=== PATIENT | female | born 1975 | race Caucasian/White ===

== ENCOUNTER → 2017-06-19 | Outpatient (CLI) | payer MEDICAID, SELFPAY | PROVIDERS: Visit Provider Emergency Medicine | DX: Z79.899 Other long term (current) drug therapy (principal) | CPT/HCPCS: 80305 ==

== ENCOUNTER 2017-07-03 08:40 | Emergency (ER) | payer MEDICAID, SELFPAY ==
[2017-07-03 08:44] VITALS: BP 126/80; PULSE 84; RESP 20; TEMP 36.6; O2SAT 97; BMI 23.9
--- NOTE | 2017-07-03 08:55 | XR_ITS ---
XR chest 2V HISTORY: ITS.REASON: SOA, COUGH, LUNG PAIN ORDERING PHYSICIAN: oJcelyn Szymanski MD PATIENT AGE: 42 years COMPARISON: 08/30/2013 FINDINGS: The cardiomediastinal silhouette and pulmonary vascularity are within normal limits. The lungs are clear without infiltrates, suspicious nodules, or pleural effusions. No acute bony abnormalities. There is a bone plate over the lower cervical spine IMPRESSION: No acute finding
--- NOTE | 2017-07-03 09:12 | HMH.EDGENADL ---
ED Disposition Clinical Impression: Bronchitis, Acute bronchitis Disposition: Home, Self-Care Condition on Discharge: Good Instructions: DI for Acute Bronchitis Additional Instructions: Albuterol inhaler as prescribed, Robitussin cough syrup over the counter, Tylenol, Advil for discomfort, push fluids, see Dr. Hess in two to five days for recheck. Prescriptions: Albuterol Sulfate [Proair Hfa 90mcg/puff Inh] 2 puffs IH Q4HP PRN #1 inh PRN Reason: Cough - Critical Care Critical Care Time: No Attestation: On , the high probability of a clinically significant, sudden or life threatening deterioration of the following system(s) required my full and direct attention, intervention and personal management. The time I documented below is in addition to time spent performing reported procedures but includes the following listed in this critical care notation. Medical Decision Making Vital Signs: 07/03/17 08:44 Temperature 97.9 F Temperature Source Oral Pulse Rate [Right Brachial] 84 Respiratory Rate 20 Blood Pressure [Right Arm] 126/80 Blood Pressure Mean [Right Arm] 95 Blood Pressure Source [Right Arm] Automatic Cuff Blood Pressure Position [Right Arm] Sitting 02 Sat by Pulse Oximetry 97 Oxygen Delivery Method Room Air - Lab Data Lab Results 07/03/17 08:48: Influenza Type A Ag Negative, Influenza Type B Ag Negative, Group A Strep Rapid Negative Orders (Tests/Meds): ORDERS Category Date Time Status Chest XR 2 view (NOT portable) [XR chest 2V] Stat Exams 07/03/17 08:55 Taken Strep Screen Confirmation Stat Micro 07/03/17 08:48 Received - Radiology Data #1 Image(s): Chest Image Reviewed: Yes I reviewed the patient's radiology results, Yes I have reviewed radiologist's interpretation Preliminary Findings: Normal/NAD, No Infiltrates Seen - Darrius Inquiry Pt receiving controlled substance: No General Adult HPI - General Chief complaint: Shortness of Breath/Dyspnea Stated complaint: SOA Check for Pheumonia Mode of Arrival: Ambulatory Limitations: No Limitations Description of Symptoms (Recalled from ER Triage Doc. by RN): PT C/O COUGH, LUNG PAIN, AND HEAD CONGESTION SINCE 06/30/17 - History of Present Illness HPI narrative: Flu symptoms ?4 days. Tight, bronchitic cough, myalgias and congestion. Taking p.o. well. She reports a history of asthma, and has used inhalers in the past. Onset (ago): day(s) (four) Location: chest Radiation: back Severity: mild Quality: aching Consistency: intermittent Relieving factors: rest Exacerbating factors: movement Associated symptoms: cough, fever/chills. negative: rash Treatments prior to arrival: none - Related Data Previous Rx's Medication Instructions Recorded Albuterol Sulfate [Proair Hfa 2 puffs IH Q4HP PRN #1 inh 07/03/17 90mcg/puff Inh] Allergies Allergy/AdvReac Type Severity Reaction Status Date / Time codeine [CODEINE] Allergy Unknown Unverified 06/17/17 14:26 fluoxetine [From PROZAC] Allergy Unknown Unverified 06/17/17 14:26 ibuprofen [IBUPROFEN] Allergy Unknown Unverified 06/17/17 14:26 latex [LATEX] Allergy Unknown Unverified 06/17/17 14:26 loratadine [From CLARITIN] Allergy Unknown Unverified 06/17/17 14:26 magnesium [MAGNESIUM] Allergy Unknown Unverified 06/17/17 14:26 nitrofurantoin Allergy Unknown Unverified 06/17/17 14:26 [NITROFURANTOIN] oxycodone [OXYCODONE] Allergy Unknown Unverified 06/17/17 14:26 sumatriptan [SUMATRIPTAN] Allergy Unknown Unverified 06/17/17 14:26 tramadol [TRAMADOL] Allergy Unknown Unverified 06/17/17 14:26 trazodone [TRAZODONE] Allergy Unknown Unverified 06/17/17 14:26 ANESTHESIA GASES FROM DENTAL Allergy Unknown STOPPED Uncoded 06/17/17 14:26 WORK BREATHING [facility] History - *Social History Smoking Status: Former smoker Tobacco Type: cigarettes Alcohol Intake: never - Psychiatric History Expresses thoughts of harming self/others: None Suicide Plan Descriptio
[2017-07-03 09:14] LABS: Strep Scrn Group A (Rapid) Negative (Negative)
--- NOTE | 2017-07-03 09:17 | ED_ITS ---
ED Disposition Clinical Impression: Bronchitis, Acute bronchitis Disposition: Home, Self-Care Condition on Discharge: Good Instructions: DI for Acute Bronchitis Additional Instructions: Albuterol inhaler as prescribed, Robitussin cough syrup over the counter, Tylenol, Advil for discomfort, push fluids, see Dr. Hess in two to five days for recheck. Prescriptions: Albuterol Sulfate [Proair Hfa 90mcg/puff Inh] 2 puffs IH Q4HP PRN #1 inh PRN Reason: Cough - Critical Care Critical Care Time: No Attestation: On , the high probability of a clinically significant, sudden or life threatening deterioration of the following system(s) required my full and direct attention, intervention and personal management. The time I documented below is in addition to time spent performing reported procedures but includes the following listed in this critical care notation. Medical Decision Making Vital Signs: 07/03/17 08:44 Temperature 97.9 F Temperature Source Oral Pulse Rate [Right Brachial] 84 Respiratory Rate 20 Blood Pressure [Right Arm] 126/80 Blood Pressure Mean [Right Arm] 95 Blood Pressure Source [Right Arm] Automatic Cuff Blood Pressure Position [Right Arm] Sitting 02 Sat by Pulse Oximetry 97 Oxygen Delivery Method Room Air - Lab Data Lab Results 07/03/17 08:48: Influenza Type A Ag Negative, Influenza Type B Ag Negative, Group A Strep Rapid Negative Orders (Tests/Meds): ORDERS Category Date Time Status Chest XR 2 view (NOT portable) [XR chest 2V] Stat Exams 07/03/17 08:55 Taken Strep Screen Confirmation Stat Micro 07/03/17 08:48 Received - Radiology Data #1 Image(s): Chest Image Reviewed: Yes I reviewed the patient's radiology results, Yes I have reviewed radiologist's interpretation Preliminary Findings: Normal/NAD, No Infiltrates Seen - Darrius Inquiry Pt receiving controlled substance: No General Adult HPI - General Chief complaint: Shortness of Breath/Dyspnea Stated complaint: SOA Check for Pheumonia Mode of Arrival: Ambulatory Limitations: No Limitations Description of Symptoms (Recalled from ER Triage Doc. by RN): PT C/O COUGH, LUNG PAIN, AND HEAD CONGESTION SINCE 06/30/17 - History of Present Illness HPI narrative: Flu symptoms ?4 days. Tight, bronchitic cough, myalgias and congestion. Taking p.o. well. She reports a history of asthma, and has used inhalers in the past. Onset (ago): day(s) (four) Location: chest Radiation: back Severity: mild Quality: aching Consistency: intermittent Relieving factors: rest Exacerbating factors: movement Associated symptoms: cough, fever/chills. negative: rash Treatments prior to arrival: none - Related Data Previous Rx's Medication Instructions Recorded Albuterol Sulfate [Proair Hfa 2 puffs IH Q4HP PRN #1 inh 07/03/17 90mcg/puff Inh] Allergies Allergy/AdvReac Type Severity Reaction Status Date / Time codeine [CODEINE] Allergy Unknown Unverified 06/17/17 14:26 fluoxetine [From PROZAC] Allergy Unknown Unverified 06/17/17 14:26 ibuprofen [IBUPROFEN] Allergy Unknown Unverified 06/17/17 14:26 latex [LATEX] Allergy Unknown Unverified 06/17/17 14:26 loratadine [From CLARITIN] Allergy Unknown Unverified 06/17/17 14:26 magnesium [MAGNESIUM] Allergy Unknown Unverified 06/17/17 14
[2017-07-03 09:36] VITALS: BP 138/75; PULSE 102; RESP 20
== END 2017-07-03 09:36 | disposition home or self-care (01) ==
LOC: ER 10:07
PROVIDERS: Emergency Provider Emergency Medicine; Family Provider Emergency Medicine; PCP Emergency Medicine
DX: J20.9 Acute bronchitis, unspecified (principal); J45.909 Unspecified asthma, uncomplicated; Z88.6 Allergy status to analgesic agent; Z88.8 Allergy status to other drugs, medicaments and biological substances; Z91.040 Latex allergy status; Z87.891 Personal history of nicotine dependence
CPT/HCPCS: 71046; 87275; 87276; 87430; 99282; 99284

== ENCOUNTER 2017-07-11 13:07 | Emergency (ER) | payer MEDICAID, SELFPAY ==
[2017-07-11 13:27] VITALS: BP 149/92; PULSE 98; RESP 18; TEMP 36.6; O2SAT 98; BMI 23.0
--- NOTE | 2017-07-11 13:32 | PC.NURSE ---
Pt reports seizing in her sleep last night. Woke up with bite to inside of right cheek and stiff neck. Stiff neck is reported as unbearable. Called PCP, Dr. Hess. Office staff couldn't get her in and told her to come to the hospital if she thought she had a seizure. Hx of seizures but not typically while on medication. Unknown medications. [facility], on trileptal 300mg BIC, norco, valium and clomipramine. Discussed atypical seizures, [facility] guidelines and transfer to ER. Pt agreeable. Report called to SOLITARIO Silva RN. PAC RN finishing triage prior to transferring patient.
[2017-07-11 13:46] VITALS: BP 138/87; PULSE 91; RESP 16; TEMP 36.7; O2SAT 98; BMI 23.0
[2017-07-11 13:52] VITALS: BP 138/87; PULSE 91; RESP 16; O2SAT 98
--- NOTE | 2017-07-11 13:56 | HMH.EDGENADL ---
ED Disposition Clinical Impression: Cervical strain Disposition: Home, Self-Care Condition on Discharge: Good Instructions: DI for Cervical Radiculopathy, DI for Neck Sprain, DI for Seizure Disorder -- Adult Additional Instructions: Take Trileptal 300 mg once a day. See Dr. Hess in the office on Friday next week. Continue current pain medication. Additional instructions for SEIZURE OR LOSS OF CONSCIOUSNESS/POSSIBLE SEIZURE: NO DRIVING, BIKE RIDING, SWIMMING, TUB BATHING, LADDERS UNTIL CLEARED BY DOCTOR. RETURN IF SEIZURE RECURS. NO ALCOHOL OR STREET DRUGS. See your physician as soon as possible for follow-up. Return to the emergency department if seizure recurs. Additional instructions for NECK PAIN: See your physician as soon as possible for further evaluation. Return immediately if neck pain becomes intolerable, or if fever, numbness or weakness of your arms or legs, loss of control of your bowels or bladder. Referrals: Omar Hess MD [Primary Care Provider] - - Critical Care Critical Care Time: No Attestation: On 07/11/17, the high probability of a clinically significant, sudden or life threatening deterioration of the following system(s) required my full and direct attention, intervention and personal management. The time I documented below is in addition to time spent performing reported procedures but includes the following listed in this critical care notation. Medical Decision Making Vital Signs: 07/11/17 13:27 07/11/17 13:46 07/11/17 13:52 Temperature 98 F 98.0 F Temperature Source Temporal Artery Scan Oral Pulse Rate [Right] 98 H 91 H 91 H Respiratory Rate 18 16 16 Blood Pressure [Right Arm] 149/92 138/87 138/87 Blood Pressure Mean [Right Arm] 111 104 104 Blood Pressure Source [Right Arm] Automatic Cuff Automatic Cuff Automatic Cuff Blood Pressure Position [Right Arm] Sitting Sitting Sitting 02 Sat by Pulse Oximetry 98 98 98 Oxygen Delivery Method Room Air Room Air Room Air - CT Data CT Scan: C-Spine Time Received: 15:[address] Reviewed: Yes: I have viewed the radiologist's interpretation Findings Narrative: CT scan interpreted by radiologist: No acute process. Previous fusion. - Darrius Inquiry Pt receiving controlled substance: No Medical Decision Making Narrative: 2:00 PM: Dr. Hess's office was called and they advised to change the patient's Trileptal dose to 300 mg per day and she can be seen in the office on Friday. 3:12 PM: The patient declines a dose of Trileptal, wants to take it tonight because it helps her sleep. Also states cannot take steroids for possible cervical radiculopathy, does not tolerate them. General Adult HPI - General Chief complaint: PAIN Stated complaint: neck pain and left side had seizure Mode of Arrival: Wheelchair Limitations: No Limitations Description of Symptoms (Recalled from ER Triage Doc. by RN): pt reports seizure lastnight, reports bit the inside of her cheek. Reports neck soreness x2 days. Pt reports hasn't taken trileptal in approx 1 week r/t it's makes me sleepy . Pt reports was told by personnel arbitrator MD lastnight to follow up with her pcp, states pcp office did not have appointments available today to be seen in ER. - History of Present Illness HPI narrative: The patient complains of neck pain, acute on chronic, and a possible seizure with a history of a seizure disorder. She says that she awoke this morning more sore than usual. She has chronic neck pain but it is more severe. It radiates into her left shoulder blade area and her left arm feels tingly. She says she has had problems with her arm before, but not recently. She has a prior history of surgery on her neck a couple of years ago. She is on chronic pain medication for her neck, 2 tablets a day, she took 1-1/2 tablets this morning. Because of her increased neck pain and also a bite lashawn on the inside of her cheek, she thinks that she might of had a seizure
--- NOTE | 2017-07-11 14:04 | CT_ITS ---
CT cervical spine wo con INDICATION: Severe neck pain. History of C-spine surgery ITS.REASON: neck pain COMPARISON: None TECHNIQUE: Axial images are obtained without contrast. Sagittal and coronal reformatted images are reviewed as well. FINDINGS: There is straightening of the cervical lordosis which could be due to patient positioning or muscle spasm. There is been prior anterior cervical disc fusion at C5-C6. Normal alignment. No fracture or dislocation. No bony canal stenosis. No prevertebral soft tissue swelling. No lytic or blastic change. There are scattered small lymph nodes in the neck. Chronic changes are present in the lung apices IMPRESSION: 1. No acute finding. 2. Prior anterior cervical disc fusion at C5-C6 3. Straightening of cervical lordosis which could be due to patient positioning or muscle spasm.
[2017-07-11 15:18] VITALS: BP 120/68; PULSE 83; RESP 16; TEMP 36.9; O2SAT 99
== END 2017-07-11 15:18 | disposition home or self-care (01) ==
LOC: UTC 13:09 → ER 13:45
PROVIDERS: Emergency Provider Emergency Medicine; Family Provider Emergency Medicine; PCP Emergency Medicine
DX: S16.1XXA Strain of muscle, fascia and tendon at neck level, initial encounter (principal); R56.9 Unspecified convulsions; Z79.899 Other long term (current) drug therapy; Z87.891 Personal history of nicotine dependence
CPT/HCPCS: 72125; 96372; 99282

== ENCOUNTER → 2017-08-15 14:51 | Outpatient (CLI) | payer MEDICAID, SELFPAY ==
--- NOTE | 2017-08-15 14:51 | MR_ITS ---
MR cervical spine wo con, MR 3-d myelogram/MRCP HISTORY: New onset neck pain ORDERING PHYSICIAN: Omar Hess MD PATIENT AGE: 42 years COMPARISON: MRI of 11-29-[address] scan of 07/11/2017 TECHNIQUE: Standard multiplanar multiecho sequences are performed without contrast. 3-D MIP and myelographic images are also rendered and reviewed FINDINGS: The craniocervical junction has an unremarkable appearance. C2-C3 and C3-C4 are unremarkable. C4-C5: Mild concentric bulging disc. C5-C6: Artifact is present from anterior bone plate with screws at C5 and C6. There is been prior fusion of C5-C6. C6-C7: Broad-based central disc protrusion once again noted. This is slightly larger on today's study when compared to the previous exam causing mild impingement and flattening upon the anterior aspect of the cord slightly eccentric toward the left. There is some prominence of the posterior longitudinal ligament at this region as well. There is canal stenosis at this level with canal measuring 7 mm previously measuring 8 mm. C7-T1: Unremarkable. IMPRESSION: 1. Postsurgical changes at C5-C6 from prior anterior cervical disc fusion. 2. Broad-based central disc protrusion at C6-C7 slightly larger on today's study when compared to the previous exam causing mild impingement and flattening upon the anterior aspect of the cord slightly eccentric toward the left. There is some prominence of the posterior longitudinal ligament at this region as well. There is canal stenosis at this level with canal measuring 7 mm previously measuring 8 mm.
== END ==
PROVIDERS: Family Provider Emergency Medicine; PCP Emergency Medicine; Visit Provider Emergency Medicine
DX: M54.2 Cervicalgia (principal)
CPT/HCPCS: 72141; 76376

== ENCOUNTER → 2017-08-20 13:52 | Outpatient (REF) | payer MEDICAID, SELFPAY ==
[2017-08-21 15:33] LABS: Basophils # 0.1 K/mm3 (0-0.2); Basophils % 0.9 % (0.1-2.0); Eosinophils # 0.2 K/mm3 (0.0-0.4); Hematocrit 42.8 % (37.0-47.0); Hemoglobin 14.1 g/dL (12.2-16.2); Lymphocytes % 31.2 K/mm3 (10-50); Mean Corpuscular Hemoglobin 31.2 pg (27.0-31.2); Mean Corpuscular Volume 94.6 fl (81-99); Mean Platelet Volume 9.9 fl (7.4-10.4); Monocytes # 0.3 K/mm3 (0.1-1.0); Monocytes % 4.9 % (1.7-9.3); Neutrophils # 3.8 K/mm3 (1.8-7.8); Neutrophils % 59.9 % (37.0-80.0); Platelet Count 284 K/mm3 (142-424); Red Blood Count 4.52 M/mm3 (4.20-5.40); Red Cell Distribution Width 12.4 % (11.5-17.5); White Blood Count 6.4 K/mm3 (4.8-10.8)
[2017-08-21 15:39] LABS: Alanine Aminotransferase 35 U/L (12-78); Albumin Level 3.9 gm/dL (3.4-5.0); Albumin/Globulin Ratio 1.2 (1.1-1.8); Alkaline Phosphatase 71 U/L (46-116); Anion Gap 9.3 mEq/L (5-15); Aspartate Amino Transferase 16 U/L (15-37); Bilirubin,Total 0.3 mg/dL (0.2-1.0); Blood Urea Nitrogen 11 mg/dL (7-18); Calcium 9.1 mg/dL (8.5-10.1); Carbon Dioxide 29 mmol/L (21.0-32.0); Chloride 104 mmol/L (98-107); Creatinine,Serum 0.87 mg/dL (0.55-1.02); Estimated Glomerular Filt Rate 71 ml/min (>60); GFR (African American) 86 ML/MIN (>60); Globulin 3.3 gm/dl (1.3-3.2); Glucose 123 mg/dL (74-106); Potassium 4.3 mmoL/L (3.5-5.1); Sodium 138 mmol/L (136-145); Total Protein,Serum 7.2 gm/dL (6.4-8.2)
[2017-08-21 15:40] LABS: Amphetamine/Metha Screen,Urine Negative ng/mL (<1000); Barbiturates Screen,Urine Negative ng/mL (<200); Benzodiazepines Screen,Urine Positive ng/mL (200); Cannabinoid Screen,Urine Negative ng/mL (<50); Cocaine Screen,Urine Negative ng/g (<300); Methadone Screen,Urine Negative ng/mL (<300); Opiate Screen,Urine Positive ng/mL (<300); Phencyclidine Screen,Urine Negative ng/mL (<25)
[2017-08-21 16:04] LABS: Hemoglobin A1C 5.4 % (0.0-7.0)
== END ==
LOC: LAB 13:52
PROVIDERS: Visit Provider Emergency Medicine
DX: R23.2 Flushing (principal); Z79.899 Other long term (current) drug therapy
CPT/HCPCS: 80053; 80305; 83036; 85025

== ENCOUNTER → 2017-08-21 13:52 | Outpatient (CLI) | payer MEDICAID, SELFPAY | PROVIDERS: Visit Provider Emergency Medicine | DX: R23.2 Flushing (principal); Z79.899 Other long term (current) drug therapy ==

== ENCOUNTER → 2017-09-03 16:10 | Outpatient (CLI) | payer MEDICAID, SELFPAY ==
--- NOTE | 2017-09-03 16:14 | MM_ITS ---
MM Dig screening mamm BI w/CAD CAD Screening COMPARISON: Digital baseline mammogram 11/07/2015 INDICATION: There is no personal or family history of breast cancer TECHNIQUE: Standard CC and MLO images were obtained. R2 CAD reviewed. FINDINGS: Moderate diffuse fibroglandular densities are seen in the central portions of both breasts. There are 2 small nodular densities upper central portion of the left breast which are not deftly seen on the previous mammogram. These have well-defined borders and and are likely cysts or possibly fibroadenomas. Recommend ultrasound evaluation of left breast . Again noted are couple mole markers on each breast. There are no suspicious microcalcifications. IMPRESSION: Fibrofatty parenchyma with new benign-appearing densities left breast BI-RADS Category: 0 Need Additional Imaging Evaluation RECOMMENDED FOLLOW-UP: IMM - IMMEDIATE FOLLOW-UP RECOMMENDED (A letter has been sent to the patient regarding results of the study.)
== END ==
PROVIDERS: Family Provider Emergency Medicine; PCP Emergency Medicine; Visit Provider Emergency Medicine
DX: Z12.31 Encounter for screening mammogram for malignant neoplasm of breast (principal)
CPT/HCPCS: 77067

== ENCOUNTER → 2017-09-17 13:02 | Outpatient (REF) | payer MEDICAID, SELFPAY ==
[2017-09-17 20:19] LABS: Amphetamine/Metha Screen,Urine Negative ng/mL (<1000); Barbiturates Screen,Urine Negative ng/mL (<200); Benzodiazepines Screen,Urine Positive ng/mL (200); Cannabinoid Screen,Urine Negative ng/mL (<50); Cocaine Screen,Urine Negative ng/g (<300); Methadone Screen,Urine Negative ng/mL (<300); Opiate Screen,Urine Positive ng/mL (<300); Phencyclidine Screen,Urine Negative ng/mL (<25)
== END ==
LOC: LAB 13:02
PROVIDERS: Visit Provider Emergency Medicine
DX: Z79.899 Other long term (current) drug therapy (principal)
CPT/HCPCS: 80305

== ENCOUNTER → 2017-10-10 11:11 | Outpatient (CLI) | payer MEDICAID, SELFPAY ==
--- NOTE | 2017-10-10 11:13 | US_ITS ---
US breast LT complete COMPARISON: Annual screening mammogram 09/03/2017 HISTORY: Evaluation of asymmetric nodular densities left breast TECHNIQUE: Targeted ultrasound left breast FINDINGS: There are 2 well-defined hypoechoic cystic-appearing lesions at the 11:00 position outer breast. The largest has a somewhat bilobed appearance measuring 1.6 x 0.8 x 0.9 cm. This shows good acoustic enhancement. The other cystic lesion measures 1.2 x 1.3 x 0.7 cm and shows acoustic enhancement well. There is a third tiny hypoechoic lesion to small to characterize but probably a small cyst left o'clock position near the nipple measuring 0.5 x 0.3 x 0.4 cm. There are couple tiny cystic-appearing lesions at the 2:00 position in the nipple. Is no suspicious solid lesions identified. There is a normal-appearing node in the axilla. IMPRESSION: Benign-appearing cystic lesions in the left breast as described and recommend patient kidney with yearly screening mammography
== END ==
PROVIDERS: Family Provider Emergency Medicine; PCP Emergency Medicine; Visit Provider Emergency Medicine
DX: R92.8 Other abnormal and inconclusive findings on diagnostic imaging of breast (principal)
CPT/HCPCS: 76641

== ENCOUNTER → 2017-10-17 13:55 | Outpatient (REF) | payer MEDICAID, SELFPAY ==
[2017-10-17 19:41] LABS: Amphetamine/Metha Screen,Urine Negative ng/mL (<1000); Barbiturates Screen,Urine Negative ng/mL (<200); Benzodiazepines Screen,Urine Positive ng/mL (200); Cannabinoid Screen,Urine Negative ng/mL (<50); Cocaine Screen,Urine Negative ng/g (<300); Methadone Screen,Urine Negative ng/mL (<300); Opiate Screen,Urine Positive ng/mL (<300); Phencyclidine Screen,Urine Negative ng/mL (<25)
== END ==
LOC: LAB 13:55
PROVIDERS: Visit Provider Emergency Medicine
DX: Z79.899 Other long term (current) drug therapy (principal)
CPT/HCPCS: 80305

== ENCOUNTER → 2017-11-05 08:56 | Outpatient (CLI) | payer MEDICAID, SELFPAY ==
--- NOTE | 2017-11-05 09:00 | XR_ITS ---
XR elbow LT 2V HISTORY: ITS.REASON: left elbow pain ORDERING PHYSICIAN: Jamar Rodriguez MD PATIENT AGE: 42 years COMPARISON: FINDINGS: BONY STRUCTURES: No fracture or dislocation. No lytic or blastic change. Normal mineralization. SOFT TISSUES: Unremarkable. No radio opaque foreign bodies. No displaced fat pad. JOINT SPACE: Well-preserved. No significant arthritic changes evident. IMPRESSION: Negative left elbow.
== END ==
PROVIDERS: PCP Emergency Medicine; Visit Provider Orthopaedic Surgery
DX: M25.522 Pain in left elbow (principal)
CPT/HCPCS: 73070

== ENCOUNTER → 2017-11-14 08:42 | Outpatient (REF) | payer MEDICAID, SELFPAY ==
[2017-11-14 14:32] LABS: Amphetamine/Metha Screen,Urine Negative ng/mL (<1000); Barbiturates Screen,Urine Negative ng/mL (<200); Benzodiazepines Screen,Urine Positive ng/mL (200); Cannabinoid Screen,Urine Negative ng/mL (<50); Cocaine Screen,Urine Negative ng/g (<300); Methadone Screen,Urine Negative ng/mL (<300); Opiate Screen,Urine Positive ng/mL (<300); Phencyclidine Screen,Urine Negative ng/mL (<25)
== END ==
LOC: LAB 08:42
PROVIDERS: Visit Provider Emergency Medicine
DX: Z79.891 Long term (current) use of opiate analgesic (principal)
CPT/HCPCS: 80305

== ENCOUNTER → 2017-12-01 09:16 | Outpatient (POV) | payer MEDICAID, SELFPAY | PROVIDERS: Family Provider Emergency Medicine; PCP Emergency Medicine; Visit Provider Specialist | DX: R20.0 Anesthesia of skin (principal); R20.2 Paresthesia of skin | CPT/HCPCS: 95886; 95910 ==

== ENCOUNTER → 2017-12-03 13:43 | Outpatient (REF) | payer MEDICAID, SELFPAY ==
[2017-12-03 19:28] LABS: Amphetamine/Metha Screen,Urine Negative ng/mL (<1000); Barbiturates Screen,Urine Negative ng/mL (<200); Benzodiazepines Screen,Urine Positive ng/mL (200); Cannabinoid Screen,Urine Negative ng/mL (<50); Cocaine Screen,Urine Negative ng/g (<300); Methadone Screen,Urine Negative ng/mL (<300); Opiate Screen,Urine Positive ng/mL (<300); Phencyclidine Screen,Urine Negative ng/mL (<25)
== END ==
LOC: LAB 13:43
PROVIDERS: Visit Provider Emergency Medicine
DX: Z79.899 Other long term (current) drug therapy (principal)
CPT/HCPCS: 80305

== ENCOUNTER → 2018-01-05 15:27 | Outpatient (CLI) | payer MEDICAID, SELFPAY ==
--- NOTE | 2018-01-05 15:30 | MR_ITS ---
MR cervical spine wo con, MR 3-d myelogram/MRCP HISTORY: PT states neck pain, burning/stinging sensations at times. Also will have bilateral arm pain. Symptoms X6 Months. PT also states she had a fusion 2-3 years ago. ITS.REASON: NECK PAIN, DDD CERVICAL, HX OF FUSION OF CERVICAL SPINE ORDERING PHYSICIAN: Criss Bolaños PATIENT AGE: 42 years Comparison: MRI 11/29/16 TECHNIQUE: Standard multiplanar multiecho sequences are performed without contrast. 3-D MIP and myelographic images are also rendered and reviewed FINDINGS: There is straightening of the cervical lordosis. The craniocervical junction has an unremarkable appearance. C2-C3 and C3-C4 are unremarkable. C4-C5: Minimal bulging disc. C5-C6: Status post anterior cervical disc fusion with moderate degree of metallic artifact. C6-C7: Small broad-based right paracentral disc protrusion. Previously this was central and very slightly eccentric toward the left but now appears slightly eccentric toward the right. There is resultant canal stenosis of 7 8-mm with minimal impingement upon the anterior aspect of the cord. C7-T1: Unremarkable. IMPRESSION: 1. Postsurgical changes from prior anterior cervical disc fusion at C5-C6. 2 .Small broad-based right paracentral disc protrusion at C6-C7. Previously this was central and very slightly eccentric toward the left but now appears slightly eccentric toward the right. There is resultant canal stenosis of 7- 8-mm with minimal impingement upon the anterior and right aspect of the cord
== END ==
PROVIDERS: Family Provider Emergency Medicine; PCP Emergency Medicine; Visit Provider Physician Assistant Medical
DX: M54.2 Cervicalgia (principal); M50.30 Other cervical disc degeneration, unspecified cervical region; R29.2 Abnormal reflex; Z98.1 Arthrodesis status
CPT/HCPCS: 72141; 76376

== ENCOUNTER → 2018-04-15 14:13 | Outpatient (REF) | payer MEDICAID, SELFPAY ==
[2018-04-15 20:10] LABS: Amphetamine/Metha Screen,Urine Negative ng/mL (<1000); Barbiturates Screen,Urine Negative ng/mL (<200); Benzodiazepines Screen,Urine Positive ng/mL (<200); Cannabinoid Screen,Urine Negative ng/mL (<50); Cocaine Screen,Urine Negative ng/mL (<300); Methadone Screen,Urine Negative ng/mL (<300); Opiate Screen,Urine Positive ng/mL (<300); Phencyclidine Screen,Urine Negative ng/mL (<25)
== END ==
LOC: LAB 14:13
PROVIDERS: PCP Emergency Medicine; Visit Provider Emergency Medicine
DX: Z79.899 Other long term (current) drug therapy (principal)
CPT/HCPCS: 80305

== ENCOUNTER → 2018-05-15 08:25 | Outpatient (CLI) | payer MEDICAID, SELFPAY ==
[2018-05-18 14:56] LABS: Amphetamine/Metha Screen,Urine Negative ng/mL (<1000); Barbiturates Screen,Urine Negative ng/mL (<200); Benzodiazepines Screen,Urine Positive ng/mL (<200); Cannabinoid Screen,Urine Negative ng/mL (<50); Cocaine Screen,Urine Negative ng/mL (<300); Methadone Screen,Urine Negative ng/mL (<300); Opiate Screen,Urine Positive ng/mL (<300); Phencyclidine Screen,Urine Negative ng/mL (<25)
== END ==
PROVIDERS: Visit Provider Emergency Medicine
DX: Z79.899 Other long term (current) drug therapy (principal)
CPT/HCPCS: 80305

== ENCOUNTER → 2018-06-15 18:43 | Outpatient (CLI) | payer MEDICAID, SELFPAY ==
[2018-06-15 19:24] LABS: Amphetamine/Metha Screen,Urine Negative ng/mL (<1000); Barbiturates Screen,Urine Negative ng/mL (<200); Benzodiazepines Screen,Urine Positive ng/mL (<200); Cannabinoid Screen,Urine Negative ng/mL (<50); Cocaine Screen,Urine Negative ng/mL (<300); Methadone Screen,Urine Negative ng/mL (<300); Opiate Screen,Urine Positive ng/mL (<300); Phencyclidine Screen,Urine Negative ng/mL (<25)
== END ==
PROVIDERS: Visit Provider Emergency Medicine
DX: Z79.899 Other long term (current) drug therapy (principal)
CPT/HCPCS: 80305

== ENCOUNTER → 2018-07-02 12:51 | Outpatient (CLI) | payer MEDICAID, SELFPAY ==
--- NOTE | 2018-07-02 12:53 | MR_ITS ---
MR cervical spine wo con, MR 3-d myelogram/MRCP HISTORY: LT arm pain, Numbness, and tingling. Headache. HX 2 neck surgeries last one 4-5months ago. ITS.REASON: neck pain ORDERING PHYSICIAN: Omar Hess MD PATIENT AGE: 43 years Comparison: MR 01-05-18 TECHNIQUE: Standard multiplanar multiecho sequences are performed without contrast. 3-D MIP and myelographic images are also rendered and reviewed FINDINGS: The craniocervical junction has an unremarkable appearance. C2-C3: Unremarkable. C3-C4: Unremarkable. C4-C5: Minimal bulging disc slightly eccentric toward the left without flattening or impingement. There is congenital narrowing of the canal is 10 mm C5-C6: There appears that the previously noted anterior screws at C5 have been removed. There is degenerative disc disease at C5-C6. There is narrowing of the canal at 10 mm but no evidence of cord impingement C6-C7: Artifact is present from anterior disc fusion.. Bone plate is present at C6-C7 anteriorly. No disc herniation or significant foraminal narrowing apparent. Previously noted disc herniation at C6-C7 is no longer apparent. IMPRESSION: 1. Postsurgical changes at C5-C6 and C6-C7 as described above. Previously noted right paracentral disc protrusion no longer apparent at C6-C7. 2. 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 There is minimal bulging disc eccentric to the left at C4-C5 3. No extruded herniated disc evident.
== END ==
PROVIDERS: PCP Emergency Medicine; Visit Provider Emergency Medicine
DX: M54.2 Cervicalgia (principal)
CPT/HCPCS: 72141; 76376

== ENCOUNTER → 2018-08-14 17:46 | Outpatient (CLI) | payer MEDICAID, SELFPAY ==
[2018-08-14 19:27] LABS: Amphetamine/Metha Screen,Urine Negative ng/mL (<1000); Barbiturates Screen,Urine Negative ng/mL (<200); Benzodiazepines Screen,Urine Positive ng/mL (<200); Cannabinoid Screen,Urine Negative ng/mL (<50); Cocaine Screen,Urine Negative ng/mL (<300); Methadone Screen,Urine Negative ng/mL (<300); Opiate Screen,Urine Positive ng/mL (<300); Phencyclidine Screen,Urine Negative ng/mL (<25)
== END ==
LOC: LAB 17:46 → LAB.DROPOF 17:49
PROVIDERS: Visit Provider Emergency Medicine
DX: Z79.899 Other long term (current) drug therapy (principal)
CPT/HCPCS: 80305

== ENCOUNTER → 2018-09-09 17:00 | Outpatient (CLI) | payer MEDICAID, SELFPAY ==
[2018-09-09 19:29] LABS: Amphetamine/Metha Screen,Urine Negative ng/mL (<1000); Barbiturates Screen,Urine Negative ng/mL (<200); Benzodiazepines Screen,Urine Positive ng/mL (<200); Cannabinoid Screen,Urine Negative ng/mL (<50); Cocaine Screen,Urine Negative ng/mL (<300); Methadone Screen,Urine Negative ng/mL (<300); Opiate Screen,Urine Positive ng/mL (<300); Phencyclidine Screen,Urine Negative ng/mL (<25)
== END ==
PROVIDERS: Visit Provider Emergency Medicine
DX: M54.2 Cervicalgia (principal)
CPT/HCPCS: 80305

== ENCOUNTER → 2018-10-09 16:47 | Outpatient (CLI) | payer MEDICAID, SELFPAY ==
[2018-10-09 18:30] LABS: Amphetamine/Metha Screen,Urine Negative ng/mL (<1000); Barbiturates Screen,Urine Negative ng/mL (<200); Benzodiazepines Screen,Urine Positive ng/mL (<200); Cannabinoid Screen,Urine Negative ng/mL (<50); Cocaine Screen,Urine Negative ng/mL (<300); Methadone Screen,Urine Negative ng/mL (<300); Opiate Screen,Urine Positive ng/mL (<300); Phencyclidine Screen,Urine Negative ng/mL (<25)
== END ==
PROVIDERS: Visit Provider Emergency Medicine
DX: M54.2 Cervicalgia (principal)
CPT/HCPCS: 80305

== ENCOUNTER → 2018-12-08 18:04 | Outpatient (CLI) | payer MEDICAID, SELFPAY ==
[2018-12-08 19:23] LABS: Amphetamine/Metha Screen,Urine Negative ng/mL (<1000); Barbiturates Screen,Urine Negative ng/mL (<200); Benzodiazepines Screen,Urine Positive ng/mL (<200); Cannabinoid Screen,Urine Negative ng/mL (<50); Cocaine Screen,Urine Negative ng/mL (<300); Methadone Screen,Urine Negative ng/mL (<300); Opiate Screen,Urine Positive ng/mL (<300); Phencyclidine Screen,Urine Negative ng/mL (<25)
== END ==
PROVIDERS: Visit Provider Emergency Medicine
DX: M54.2 Cervicalgia (principal)
CPT/HCPCS: 80305

== ENCOUNTER → 2019-01-26 15:59 | Outpatient (CLI) | payer MEDICAID, SELFPAY ==
--- NOTE | 2019-01-26 16:01 | MM_ITS ---
MM Dig screening mamm BI w/CAD CAD Screening COMPARISON: Digital mammograms with CAD 09/03/2017 and 11/07/2015 INDICATION: There is no personal or family history of breast cancer TECHNIQUE: Standard CC and MLO images were obtained. R2 CAD reviewed. FINDINGS: Moderate fibroglandular densities are seen in the central portions and upper outer quadrants of each breast. There is a dominant spherical density central portion of left breast similar in size and appearance to one of the 2 densities seen on last year's mammogram. These were shown to be cystic lesions one of which apparently has almost completely spontaneously decompressed or was drained. A small satellite cystic-appearing lesion is seen adjacent to the larger one best appreciated on the CC projection. There is a mole marker right breast. There are no suspicious microcalcifications. IMPRESSION: Fibrofatty parenchyma with 2 small benign-appearing lesions left breast likely cyst as noted on previous ultrasound exam one of which has markedly decreased in size from the previous exam the other one is stable and unchanged BI-RADS Category: 2 Benign Finding(s) RECOMMENDED FOLLOW-UP: 1YR - 1 YEAR FOLLOW-UP (A letter has been sent to the patient regarding results of the study.)
== END ==
PROVIDERS: PCP Emergency Medicine; Visit Provider Emergency Medicine
DX: Z12.31 Encounter for screening mammogram for malignant neoplasm of breast (principal)
CPT/HCPCS: 77067

== ENCOUNTER → 2019-01-28 17:42 | Outpatient (CLI) | payer MEDICAID, SELFPAY | PROVIDERS: Visit Provider Nurse Practitioner Family | DX: N39.0 Urinary tract infection, site not specified (principal) | CPT/HCPCS: 87086 ==

== ENCOUNTER → 2019-02-05 17:44 | Outpatient (CLI) | payer MEDICAID, SELFPAY ==
[2019-02-05 19:34] LABS: Amphetamine/Metha Screen,Urine Negative ng/mL (<1000); Barbiturates Screen,Urine Negative ng/mL (<200); Benzodiazepines Screen,Urine Positive ng/mL (<200); Cannabinoid Screen,Urine Negative ng/mL (<50); Cocaine Screen,Urine Negative ng/mL (<300); Methadone Screen,Urine Negative ng/mL (<300); Opiate Screen,Urine Positive ng/mL (<300); Phencyclidine Screen,Urine Negative ng/mL (<25)
== END ==
PROVIDERS: Visit Provider Emergency Medicine
DX: Z79.899 Other long term (current) drug therapy (principal)
CPT/HCPCS: 80305

== ENCOUNTER → 2019-06-01 17:05 | Outpatient (CLI) | payer OTHER, SELFPAY ==
[2019-06-01 19:39] LABS: Amphetamine/Metha Screen,Urine Negative ng/mL (<1000); Barbiturates Screen,Urine Negative ng/mL (<200); Benzodiazepines Screen,Urine Positive ng/mL (<200); Cannabinoid Screen,Urine Negative ng/mL (<50); Cocaine Screen,Urine Negative ng/mL (<300); Methadone Screen,Urine Negative ng/mL (<300); Opiate Screen,Urine Positive ng/mL (<300); Phencyclidine Screen,Urine Negative ng/mL (<25)
== END ==
PROVIDERS: Visit Provider Emergency Medicine
DX: Z79.899 Other long term (current) drug therapy (principal)
CPT/HCPCS: 80305

== ENCOUNTER → 2019-06-25 09:57 | Outpatient (CLI) | payer OTHER, SELFPAY ==
--- NOTE | 2019-06-25 10:01 | XR_ITS ---
PROCEDURE: XR LUMBAR SPINE 2-3V CLINICAL INDICATION: pain COMPARISON: LS5 LUMBAR SPINE 5 VIEWS from 11/01/2015 FINDINGS: Bone density, alignment, vertebral body and disc space heights are normal. Facet joints are normal. Posterior elements appear to be intact. There are pelvic small clip phleboliths. IMPRESSION: No acute findings. Dictated by: Pradeep George 06/25/2019 11:27 Electronically signed by Pradeep George in [facility] 06/25/2019 11:27
--- NOTE | 2019-06-25 10:01 | XR_ITS ---
PROCEDURE: XR HIP LT 2-3V W/PELVIS CLINICAL INDICATION: hip pain COMPARISON: No exams were available for comparison FINDINGS: No fracture or dislocation is evident. No significant degenerative change. No lytic or blastic change. Unremarkable soft tissues. IMPRESSION: No acute findings. Dictated by: Pradeep George 06/25/2019 11:25 Electronically signed by Pradeep George in [facility] 06/25/2019 11:25
== END ==
PROVIDERS: PCP Emergency Medicine; Visit Provider Nurse Practitioner Family
DX: M25.552 Pain in left hip (principal); M54.5 Low back pain
CPT/HCPCS: 72100; 73502

== ENCOUNTER → 2019-07-02 17:07 | Outpatient (CLI) | payer OTHER, SELFPAY ==
[2019-07-02 17:22] LABS: Basophils % 0.5 % (0.1-2.0); Eosinophils # 0.1 K/mm3 (0.0-0.4); Eosinophils % 1.8 % (0.1-12.0); Hematocrit 42.2 % (37.0-47.0); Lymphocytes # 2.4 K/mm3 (0.7-4.5); Lymphocytes % 32.1 % (10-50); Mean Corpuscular HGB Conc 33.1 g/dL (31.8-35.4); Mean Corpuscular Hemoglobin 30.8 pg (27.0-31.2); Mean Corpuscular Volume 93.2 fl (81-99); Mean Platelet Volume 8.7 fl (7.4-10.4); Monocytes # 0.4 K/mm3 (0.1-1.0); Monocytes % 4.8 % (1.7-9.3); Neutrophils # 4.6 K/mm3 (1.8-7.8); Neutrophils % 60.8 % (37.0-80.0); Platelet Count 324 K/mm3 (142-424); Red Blood Count 4.53 M/mm3 (4.20-5.40); Red Cell Distribution Width 12.5 % (11.5-17.5); White Blood Count 7.5 K/mm3 (4.8-10.8)
[2019-07-02 18:12] LABS: Alanine Aminotransferase 11 U/L (12-78); Albumin Level 3.6 gm/dL (3.4-5.0); Albumin/Globulin Ratio 1.2 (1.1-1.8); Alkaline Phosphatase 66 U/L (46-116); Anion Gap 15.1 mEq/L (5-15); Aspartate Amino Transferase 4 U/L (15-37); Bilirubin,Total 0.2 mg/dL (0.2-1.0); Blood Urea Nitrogen 17 mg/dL (7-18); Calcium 8.7 mg/dL (8.5-10.1); Carbon Dioxide 27 mmol/L (21.0-32.0); Chloride 104 mmol/L (98-107); Creatinine,Serum 0.84 mg/dL (0.55-1.02); Estimated Glomerular Filt Rate 73 ml/min (>60); GFR (African American) 89 ML/MIN (>60); Globulin 3.1 gm/dl (1.3-3.2); Glucose 111 mg/dL (74-106); Potassium 4.1 mmoL/L (3.5-5.1); Sodium 142 mmol/L (136-145); T4 (Thyroxine) 9.3 ug/dl (4.7-13.3); Thyroid Stimulating Hormone 0.74 uIU/ml (0.358-3.740); Total Protein,Serum 6.7 gm/dL (6.4-8.2)
[2019-07-05 13:42] LABS: Vitamin D 25 Hydroxy 28.4 ng/mL (30.0-100.0)
== END ==
PROVIDERS: Visit Provider Nurse Practitioner Family
DX: F32.9 Major depressive disorder, single episode, unspecified (principal); R53.83 Other fatigue; E55.9 Vitamin D deficiency, unspecified
CPT/HCPCS: 80053; 82652; 84436; 84443; 85025

== ENCOUNTER → 2019-07-29 14:51 | Outpatient (CLI) | payer OTHER, SELFPAY ==
--- NOTE | 2019-07-29 14:51 | US_ITS ---
PROCEDURE: US TRANSVAGINAL CLINICAL INDICATION: lower left quadrant pain Left lower quadrant pain COMPARISON: No exams were available for comparison FINDINGS: Prior hysterectomy. LEFT OVARY: [id number] with a volume of 4.4ml. RIGHT OVARY: [id number] with a volume of 2.1ml. There is bilateral ovarian blood flow. Small follicles are present on the right. No cul-de-sac fluid IMPRESSION: Prior hysterectomy otherwise negative pelvic ultrasound Dictated by: Madi Milian MD 07/29/2019 17:26 Electronically signed by Madi Milian MD in [facility] 07/29/2019 17:26
== END ==
PROVIDERS: PCP Emergency Medicine; Visit Provider Nurse Practitioner Obstetrics & Gynecology
DX: R10.32 Left lower quadrant pain (principal)
CPT/HCPCS: 76830

== ENCOUNTER → 2019-07-30 17:34 | Outpatient (CLI) | payer OTHER, SELFPAY ==
[2019-07-30 18:28] LABS: Amphetamine/Metha Screen,Urine Negative ng/mL (<1000); Barbiturates Screen,Urine Negative ng/mL (<200); Benzodiazepines Screen,Urine Positive ng/mL (<200); Cannabinoid Screen,Urine Negative ng/mL (<50); Cocaine Screen,Urine Negative ng/mL (<300); Methadone Screen,Urine Negative ng/mL (<300); Opiate Screen,Urine Positive ng/mL (<300); Phencyclidine Screen,Urine Negative ng/mL (<25)
== END ==
PROVIDERS: Visit Provider Emergency Medicine
DX: Z79.899 Other long term (current) drug therapy (principal)
CPT/HCPCS: 80305

== ENCOUNTER → 2019-10-28 08:28 | Outpatient (CLI) | payer OTHER, SELFPAY ==
--- NOTE | 2019-10-28 08:28 | MR_ITS ---
PROCEDURE: MR LUMBAR SPINE WO CON CLINICAL INDICATION: pain Left-sided low back pain with pain extending down the left hip and buttock area with numbness in left leg COMPARISON: ABDPELW/O CT ABD PELVIS W/O CONTRAST from 05/10/2014 SPCERVWO MR cervical spine wo con from 07/02/2018 XR LUMBAR SPINE 2-3V from 06/25/2019 TECHNIQUE: Standard multiplanar multiecho sequences are performed without contrast. 3-D MIP and myelographic images are also rendered and reviewed FINDINGS: There is normal alignment. The spinal cord ends at L1 level. There is heterogeneous signal intensity within the vertebral bodies of the lumbar spine consistent with partial red marrow replacement. T12-L1, L1-L2, L2-L3, and L3-L4 have an unremarkable appearance. L4-5: There is minimal facet hypertrophic change with a small amount of fluid in the facet joints L5-S1: Minimal bulging disc slightly eccentric toward the left with minimal central disc protrusion. Incidental note is made of a horseshoe kidney with prominence of the urinary collecting system on both sides. IMPRESSION: 1. Minimal facet arthritic changes at L4-5. 2. Minimal bulging disc at L5-S1 slightly eccentric to the left with minimal central disc protrusion 3. No canal stenosis or extruded herniated disc. No neural impingement apparent 4. 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
== END ==
PROVIDERS: PCP Emergency Medicine; Visit Provider Emergency Medicine
DX: M54.9 Dorsalgia, unspecified (principal)
CPT/HCPCS: 72148; 76376

== ENCOUNTER 2020-01-20 17:08 | Emergency (ER) | payer OTHER, SELFPAY ==
[2020-01-20 17:20] VITALS: BMI 22.1
--- NOTE | 2020-01-20 17:21 | PC.NURSE ---
PT PRESENTS TO ER WITH PAIN IN THE BACK OF HER HEAD AND HAS CHRONIC NECK PAIN SHE THINKS SHE HAD A SEIZURE AT HOME SHE WOKE UP IN VOMIT SHE HAD BITTEN HER TONGUE. SHE WAS TOLD TO STOP TAKING HER SERAQUEL 1 WEEK AGO CAUSE SHE WAS SLEEPING ALL THE TIME. PT TAKES DIAZEPAM 10MG AT BEDTIME BUT DID NOT TAKE IT LAST NIGHT. PT IS AWAKE AND ALERT X3 HAS FAMILY AT BEDSIDE. SHE STATES SHE USE TO TAKE SEIZURE BUT THEY TOOK HER OFF IT A LONG TIME AGO DUE TO LIVER PROBLEMS.
--- NOTE | 2020-01-20 17:29 | CT_ITS ---
PROCEDURE: CT CERVICAL SPINE WO CON CLINICAL INDICATION: PAIN IN HEAD AND NECK POSSIBLE SEIZURE COMPARISON: [facility] CT cervical spine wo con from 07/11/2017 TECHNIQUE: Axial images obtained with sagittal and coronal reformats. All CT scans at the facility use one or more dose reduction, viz: automated exposure control, ma/kV adjustment per patient size (including targeted exams where dose is matched to indication, i.e. head), or iterative reconstruction technique. Axial spiral CT scanning performed of the cervical spine beginning at the base of the skull and continuing to the upper T-spine. 3-D multiplanar reconstruction with 3-D manipulation of volumetric data set in image rendering was completed by the radiologist and/or technologist with the supervision of the radiologist on independent workstation. FINDINGS: There is normal alignment. There is straightening of the cervical lordosis which could be due to patient positioning or muscle spasm. No acute fracture or dislocation is evident. C2-C3 C3-C4 and C4-C5 have an unremarkable appearance. There has been prior anterior cervical disc fusion at C5-C6. The anteriorly placed screws at C5 have been removed. There remains fusion of the C5-C6 vertebral body. There has been interval anterior fusion at C6-C7 with good alignment. There is narrowing of the canal at C6-C7.. No bony destructive process. There is biapical pleural thickening. Scattered small nodes are present in the neck. IMPRESSION: Postsurgical changes with straightening of the cervical lordosis. No acute fracture or other acute anomaly evident. There is mild narrowing of the canal at C6-C7. Dictated by: Madi Milian MD 01/20/2020 18:32 Electronically signed by Madi Milian MD in [place] 01/20/2020 18:32
--- NOTE | 2020-01-20 17:29 | CT_ITS ---
PROCEDURE: CT HEAD/BRAIN WO CON CLINICAL INDICATION: PAIN IN HEAD AND NECK POSSIBLE SEIZURE COMPARISON: [facility] CT HEAD W/O CONTRAST from 05/10/2014 TECHNIQUE: Axial images obtained. All CT scans at the facility use one or more dose reduction, viz: automated exposure control, ma/kV adjustment per patient size (including targeted exams where dose is matched to indication, i.e. head), or iterative reconstruction technique. FINDINGS: No midline shift, mass effect, intracranial hemorrhage, hydrocephalus, or extra-axial fluid collection is evident. The calvarium has an unremarkable appearance. No mastoid effusion. No sinus air-fluid level. IMPRESSION: No acute intracranial finding Dictated by: Madi Milian MD 01/20/2020 18:22 Electronically signed by Madi Milian MD in [place] 01/20/2020 18:22
[2020-01-20 17:45] VITALS: BP 124/81; PULSE 70; RESP 20; TEMP 36.8; O2SAT 99; BMI 21.9
--- NOTE | 2020-01-20 17:59 | PC.NURSE ---
pt had continued to be in the triage room due having no beds available in the ER, pt is in CT at this time
--- NOTE | 2020-01-20 18:00 | PC.NURSE ---
pt back from CT and going to room 4.
--- NOTE | 2020-01-20 18:06 | HMH.EDGENADL ---
ED Disposition Clinical Impression: Seizure Fall Qualifiers: Encounter type: initial encounter Qualified Code(s): W19.XXXA - Unspecified fall, initial encounter Concussion Qualifiers: Encounter type: initial encounter Loss of consciousness presence/duration: without LOC Qualified Code(s): S06.0X0A - Concussion without loss of consciousness, initial encounter Disposition: Home, Self-Care Condition on Discharge: Good Instructions: DI for Seizure Disorder -- Adult Additional Instructions: You have been evaluated for seizure, fall, head injury. You have a concussion Please avoid activities that cause headache. Please take all medications as prescribed. Please follow-up with your primary care doctor and neurologist as soon as available. Avoid driving. Avoid patients where sudden loss of consciousness can be dangerous or deadly. Return to the emergency department if you have any new or worsening symptoms, headache, neck pain, fevers, other concerns. Referrals: Omar Hess MD [Primary Care Provider] - Time of Disposition: 18:57 - Critical Care Critical Care Time: No Attestation: On , the high probability of a clinically significant, sudden or life threatening deterioration of the following system(s) required my full and direct attention, intervention and personal management. The time I documented below is in addition to time spent performing reported procedures but includes the following listed in this critical care notation. Medical Decision Making - Medical Records Medical records reviewed: Yes: I reviewed the patient's medical records. - Darrius Inquiry Pt receiving controlled substance: No Vital Signs: 01/20/20 17:45 01/20/20 18:25 01/20/20 19:00 Temperature 98.2 F Temperature Source Oral Pulse Rate Pulse Rate [Right] 70 58 L Respiratory Rate 20 20 Blood Pressure Blood Pressure [Right Arm] 124/81 141/96 H 129/79 Blood Pressure Mean [Right Arm] 95 111 95 Blood Pressure Source Blood Pressure Source [Right Arm] Automatic Cuff Automatic Cuff Blood Pressure Position Blood Pressure Position [Right Arm] Sitting 02 Sat by Pulse Oximetry 99 100 Oxygen Delivery Method Room Air 01/20/20 19:23 Temperature 98.1 F Temperature Source Oral Pulse Rate 62 Pulse Rate [Right] Respiratory Rate 16 Blood Pressure 120/69 Blood Pressure [Right Arm] Blood Pressure Mean [Right Arm] Blood Pressure Source Automatic Cuff Blood Pressure Source [Right Arm] Blood Pressure Position Sitting Blood Pressure Position [Right Arm] 02 Sat by Pulse Oximetry Oxygen Delivery Method Room Air Medical Decision Narrative: In summary this is a 44-year-old female presenting to the emergency department with headache after a seizure at home. Patient is awake and alert on arrival. Her vital signs are stable. Differential diagnoses include breakthrough seizure, benzodiazepine withdrawal seizure. Differential diagnoses for trauma include intracranial bleed, C-spine injury. Plan to obtain noncontrast head CT, CT C-spine, urinalysis, UPT. CT scan of the head and cervical spine unremarkable. On reassessment patient was feeling better. She has a history of seizure disorder, this was likely a breakthrough seizure. She does not have symptoms of infection like cough, shortness of breath, abdominal pain, dysuria. Recommended to avoid situations where sudden loss of consciousness could be dangerous or deadly. Follow-up with PCP and neurologist as an outpatient. Do not miss doses of medications, especially sedatives. General Adult HPI - General Stated complaint: seizure, fell and hit head Time Seen by Provider: 01/20/20 18:06 Mode of Arrival: Wheelchair Source of Information: Patient Limitations: No Limitations - History of Present Illness HPI narrative: 44-year-old female presenting to the emergency department with headache after a seizure. She was at home earlier this afternoon when she felt her jaw
[2020-01-20 18:25] VITALS: BP 141/96; PULSE 58; RESP 20; O2SAT 100
[2020-01-20 19:00] VITALS: BP 129/79
--- NOTE | 2020-01-20 19:17 | PC.NURSE ---
PT WAITING ON HER RIDE TO GET HER
[2020-01-20 19:23] VITALS: BP 120/69; PULSE 62; RESP 16; TEMP 36.7; O2SAT 98
== END 2020-01-20 19:25 | disposition home or self-care (01) ==
PROVIDERS: Emergency Provider Emergency Medicine; PCP Emergency Medicine
DX: S06.0X0A Concussion without loss of consciousness, initial encounter (principal); W01.0XXA Fall on same level from slipping, tripping and stumbling without subsequent striking against object, initial encounter; Y92.017 Garden or yard in single-family (private) house as the place of occurrence of the external cause; G40.909 Epilepsy, unspecified, not intractable, without status epilepticus; F41.8 Other specified anxiety disorders; Z87.891 Personal history of nicotine dependence; Z90.79 Acquired absence of other genital organ(s); Z90.09 Acquired absence of other part of head and neck; Z91.040 Latex allergy status; Z88.5 Allergy status to narcotic agent; Z95.0 Presence of cardiac pacemaker
CPT/HCPCS: 70450; 72125; 99282; 99283

== ENCOUNTER → 2020-02-24 09:49 | Outpatient (CLI) | payer OTHER, SELFPAY ==
--- NOTE | 2020-02-24 09:50 | MR_ITS ---
PROCEDURE: MR HEAD/BRAIN WO/W CON CLINICAL INDICATION: seizures Vertigo in worse when looking down. Seizures and started x5yrs ago but are becoming more frequent. Headache on lt side of head. Blurred vision. COMPARISON: No exams were available for comparison TECHNIQUE: Routine multiplanar multi echo sequences are performed without and with gadolinium enhancement. Prior CT 01-20-20 > 11ml lot: [id number] exp: Jun 2022 FINDINGS: Midline shift, mass effect, intracranial hemorrhage, hydrocephalus, or acute infarction is evident. The cerebellopontine angles, cerebellum, and brainstem are unremarkable. No abnormal enhancing lesions. The hippocampal gyri have an unremarkable appearance. The temporal horns are symmetric. Unremarkable white matter signal intensity. The corpus callosum, pituitary, optic chiasm, and craniocervical junction have an unremarkable appearance. No mastoid effusion or sinus air-fluid level. IMPRESSION: Negative MRI of the brain without and with contrast Dictated by: Madi Milian MD 02/25/2020 09:44 Madi Milian MD in [place] 02/25/2020 09:44
== END ==
PROVIDERS: PCP Emergency Medicine; Visit Provider Specialist
DX: G40.909 Epilepsy, unspecified, not intractable, without status epilepticus (principal); G43.909 Migraine, unspecified, not intractable, without status migrainosus; G45.0 Vertebro-basilar artery syndrome; R42 Dizziness and giddiness
CPT/HCPCS: 70553; A9576

== ENCOUNTER → 2020-02-28 13:34 | Outpatient (CLI) | payer OTHER, SELFPAY ==
--- NOTE | 2020-02-28 13:34 | MR_ITS ---
PROCEDURE: MR ANGIO HEAD WO CON CLINICAL INDICATION: vertigo, vertebrobasilar insufficiency HX SEIZURE AND HEADACHES. PRIOR MR 02-24-20 COMPARISON: MR MR HEAD/BRAIN WO/W CON from 02/24/2020 MR MR ANGIO NECK WO CON from 02/28/2020 TECHNIQUE: 3D ryip-be-wtexjm images are obtained without contrast with multi slab reformats. FINDINGS: No aneurysm, arteriovenous malformation, or major intracranial occlusive process is evident. Bilateral vertebral arteries are patent and basilar artery has an unremarkable appearance. The posterior cerebral, middle cerebral, and anterior cerebral arteries are unremarkable. Single-shot MRV has an unremarkable appearance. IMPRESSION: Negative MRA of the brain Dictated by: Madi Milian MD 02/29/2020 12:07 Madi Milian MD in [place] 02/29/2020 12:07
--- NOTE | 2020-02-28 13:34 | MR_ITS ---
PROCEDURE: MR ANGIO NECK WO CON CLINICAL INDICATION: vertigo HX OF SEIZURES AND HEADACHES. PRIOR CT 08-15-17 COMPARISON: No exams were available for comparison TECHNIQUE: 3D mpfi-md-wgsdym images are obtained without contrast with multi slab reformats FINDINGS: Vertebral arteries are patent with no significant stenosis apparent. The carotid arteries have an unremarkable appearance with no significant stenotic lesions evident. No evidence of aneurysm or dissection. IMPRESSION: Negative MRA the neck Dictated by: Madi Milian MD 02/29/2020 12:09 Mdai Milian MD in [place] 02/29/2020 12:09
== END ==
PROVIDERS: PCP Emergency Medicine; Visit Provider Specialist
DX: G40.909 Epilepsy, unspecified, not intractable, without status epilepticus (principal); G43.909 Migraine, unspecified, not intractable, without status migrainosus; G45.0 Vertebro-basilar artery syndrome; R42 Dizziness and giddiness
CPT/HCPCS: 70544; 70547

== ENCOUNTER 2020-03-03 22:26 | Emergency (ER) | payer OTHER, SELFPAY ==
--- NOTE | 2020-03-03 22:28 | ECG_ITS ---
APPROVED REPORT Exam: Resting ECG HR:69 bpm ECG Measurements Heart Rate 69 AXES NE 118 P 67 QRSd 94 QRS 82 QT 404 T 54 QTc 432 <Conclusion> Normal sinus rhythm Normal ECG Electronically signed by : David Delvalle, 03/04/2020 09:59:05
[2020-03-03 22:29] VITALS: BP 157/82; PULSE 74; RESP 16; TEMP 37.3; O2SAT 100; BMI 22.3
--- NOTE | 2020-03-03 22:31 | PC.NURSE ---
PT placed in bed and seizure pads placed
--- NOTE | 2020-03-03 22:32 | HMH.EDGENADL ---
ED Disposition Clinical Impression: Seizure Disposition: Home, Self-Care Condition on Discharge: Good Instructions: DI for Seizure Disorder -- Adult Additional Instructions: Continue current medications. Follow-up with neurology at [facility] as scheduled. Follow-up with your primary care provider next week. Additional instructions for SEIZURE OR LOSS OF CONSCIOUSNESS/POSSIBLE SEIZURE: NO DRIVING, BIKE RIDING, SWIMMING, TUB BATHING, LADDERS UNTIL CLEARED BY DOCTOR. RETURN IF SEIZURE RECURS. NO ALCOHOL OR STREET DRUGS. See your physician as soon as possible for follow-up. Return to the emergency department if seizure recurs. Referrals: Omar Hess MD [Primary Care Provider] - - Critical Care Critical Care Time: No Attestation: On 03/03/20, the high probability of a clinically significant, sudden or life threatening deterioration of the following system(s) required my full and direct attention, intervention and personal management. The time I documented below is in addition to time spent performing reported procedures but includes the following listed in this critical care notation. Medical Decision Making - Medical Records Medical records reviewed: Yes: I reviewed the patient's medical records. Comment: Seen in this ER for seizure and head injury on 01/20/2020. Negative head CT and cervical spine CT. She has had follow-up and since then has had negative brain MRI, negative MRI of head and neck, negative EEG. I reviewed neurology note. She has been referred to [facility] for seizure evaluation. Boyfriend says she has an appointment scheduled. - Darrius Inquiry Pt receiving controlled substance: Yes (Diazepam, patient takes this at home) Darrius was queried for this patient: No Reason not queried -: Emergent pt cond-no time Risks and benefits of using a controlled substance: were not discussed with pt by me Vital Signs: 03/03/20 22:29 03/03/20 23:40 03/04/20 00:41 Temperature 99.1 F Temperature Source Oral Pulse Rate Pulse Rate [Left] 74 72 63 Respiratory Rate 16 18 16 Blood Pressure Blood Pressure [Right Arm] 157/82 H 111/67 130/81 Blood Pressure Mean [Right Arm] 107 81 97 Blood Pressure Source Blood Pressure Source [Right Arm] Automatic Cuff Automatic Cuff Blood Pressure Position Blood Pressure Position [Right Arm] Supine Sitting 02 Sat by Pulse Oximetry 100 99 98 Oxygen Delivery Method Room Air Room Air 03/04/20 01:22 Temperature 98.5 F Temperature Source Oral Pulse Rate 63 Pulse Rate [Left] Respiratory Rate 16 Blood Pressure 144/77 H Blood Pressure [Right Arm] Blood Pressure Mean [Right Arm] Blood Pressure Source Automatic Cuff Blood Pressure Source [Right Arm] Blood Pressure Position Sitting Blood Pressure Position [Right Arm] 02 Sat by Pulse Oximetry Oxygen Delivery Method Room Air - Lab Data Lab results reviewed: Yes: I reviewed the patient's lab results. Lab Results 03/03/20 20:41: WBC 7.8, RBC 4.36, Hgb 13.9, Hct 40.1, MCV 92.0, MCH 31.9 H, MCHC 34.7, RDW 12.9, Plt Count 281, MPV 8.3, Neut % (Auto) 47.6, Lymph % (Auto) 44.2, [place] % (Auto) 5.0, Eos % (Auto) 2.7, Baso % (Auto) 0.5, Neut # (Auto) 3.7, Lymph # (Auto) 3.4, [place] # (Auto) 0.4, Eos # (Auto) 0.2, Baso # (Auto) 0.0 03/03/20 20:41: Sodium 139, Potassium 4.0, Chloride 103, Carbon Dioxide 29, Anion Gap 11.0, BUN 17, Creatinine 0.80, Estimated Creat Clear 83, Estimated GFR 78, Est GFR ( Amer) 94, Glucose 105 H, Calcium 9.6, Total Bilirubin 0.3, AST 26, ALT 17, Alkaline Phosphatase 71, Troponin I < 0.01, Total Protein 7.4, Albumin 4.3, Globulin 3.1, Albumin/Globulin Ratio 1.4 03/03/20 23:57: Urine Color Yellow, Urine Appearance Clear, Urine pH 6.5, Ur Specific [place] >= 1.030, Urine Protein Negative, Urine Glucose (UA) Negative, Urine Ketones Negative, Urine Blood Trace-i, Urine Nitrate Negative, Urine Bilirubin Negative, Urine Urobilinogen 0.2, Ur Leukocyte Esterase Ne
--- NOTE | 2020-03-03 22:34 | XR_ITS ---
PROCEDURE: XR CHEST PORTABLE CLINICAL HISTORY: SEIZURE COMPARISON: CR CXR1 CHEST-PORTABLE from 09/26/2013 CR CXR2V XR chest 2V from 07/03/2017 FINDINGS: The cardiomediastinal silhouette and pulmonary vascularity are within normal limits. The lungs are clear without infiltrates, suspicious nodules, or pleural effusions. There is a bone plate along the lower cervical spine. IMPRESSION: No acute findings. Dictated by: Madi Milian MD 03/04/2020 06:19 Madi Milian MD in [place] 03/04/2020 06:19
[2020-03-03 22:51] LABS: Basophils % 0.5 % (0.1-2.0); Eosinophils # 0.2 K/mm3 (0.0-0.4); Eosinophils % 2.7 % (0.1-12.0); Hematocrit 40.1 % (37.0-47.0); Hemoglobin 13.9 g/dL (12.2-16.2); Lymphocytes # 3.4 K/mm3 (0.7-4.5); Lymphocytes % 44.2 % (10-50); Mean Corpuscular HGB Conc 34.7 g/dL (31.8-35.4); Mean Corpuscular Hemoglobin 31.9 pg (27.0-31.2); Mean Platelet Volume 8.3 fl (7.4-10.4); Monocytes # 0.4 K/mm3 (0.1-1.0); Neutrophils # 3.7 K/mm3 (1.8-7.8); Neutrophils % 47.6 % (37.0-80.0); Platelet Count 281 K/mm3 (142-424); Red Blood Count 4.36 M/mm3 (4.20-5.40); Red Cell Distribution Width 12.9 % (11.5-17.5); White Blood Count 7.8 K/mm3 (4.8-10.8)
[2020-03-03 22:54] LABS: Chloride 103 mmol/L (98-107); Sodium 139 mmol/L (136-145)
[2020-03-03 22:57] LABS: Alanine Aminotransferase 17 U/L (12-78); Albumin Level 4.3 g/dl (3.5-5.0); Albumin/Globulin Ratio 1.4 (1.1-1.8); Alkaline Phosphatase 71 U/L (38-126); Aspartate Amino Transferase 26 U/L (14-36); Bilirubin,Total 0.3 mg/dl (0.2-1.3); Blood Urea Nitrogen 17 mg/dl (7-17); Carbon Dioxide 29 mmol/L (22.0-30.0); Creatinine Clearance Estimated 83 mL/min (50-200); Estimated Glomerular Filt Rate 78 ml/min (>60); GFR (African American) 94 ML/MIN (>60); Globulin 3.1 g/dL (1.3-3.2); Total Protein,Serum 7.4 g/dl (6.3-8.2)
[2020-03-03 22:58] LABS: Calcium 9.6 mg/dl (8.4-10.2); Glucose 105 mg/dl (74-100)
[2020-03-03 23:11] LABS: Troponin I < 0.01 ng/ml (0.00-0.034)
[2020-03-03 23:40] VITALS: BP 111/67; PULSE 72; RESP 18; O2SAT 99
[2020-03-04 00:11] LABS: Microscopic, Urine URINE MICROSCOPIC (MICROSCOPIC)
[2020-03-04 00:13] LABS: Appearance,Urine CLEAR (Clear); Bilirubin,Urine Negative (Negative); Blood, Urine TRACE-I (Negative); Color,Urine YELLOW (Yellow); Glucose,Urine (UA) Negative (Negative); Ketones,Urine Negative (Negative); Leukocyte Esterase,Urine Negative (Negative); Nitrate,Urine Negative (Negative); PH,Urine 6.5 (5.0-8.5); Protein,Urine Negative (Negative); Specific Gravity, Urine >= 1.030 (1.005-1.030); Urobilinogen,Urine 0.2 EU/dl (0.2)
[2020-03-04 00:21] LABS: Amphetamine/Metha Screen,Urine Negative ng/ml (<1000)
[2020-03-04 00:22] LABS: Barbiturates Screen,Urine Negative ng/ml (<200); Benzodiazepines Screen,Urine Positive ng/ml (<200)
[2020-03-04 00:23] LABS: Cannabinoid Screen,Urine Negative ng/ml (<50)
[2020-03-04 00:24] LABS: Cocaine Screen,Urine Negative ng/ml (<300); Methadone Screen,Urine Negative ng/ml (<300)
[2020-03-04 00:25] LABS: Opiate Screen,Urine Positive ng/ml (<300)
[2020-03-04 00:26] LABS: Phencyclidine Screen,Urine Negative ng/ml (<25)
[2020-03-04 00:30] LABS: Bacteria,Urine 1+ /lpf; Mucus,Urine 1+ /lpf
[2020-03-04 00:41] VITALS: BP 130/81; PULSE 63; RESP 16; O2SAT 98
[2020-03-04 01:22] VITALS: BP 144/77; PULSE 63; RESP 16; TEMP 36.9; O2SAT 98
--- NOTE | 2020-03-04 01:33 | INFXCTL.NOTE ---
Pt d/c from the ed and transported out via wheelchair. Pt was able to stand up and ambulate to car from wheelchair.
== END 2020-03-04 01:26 | disposition home or self-care (01) ==
PROVIDERS: Emergency Provider Emergency Medicine; PCP Emergency Medicine
DX: G40.909 Epilepsy, unspecified, not intractable, without status epilepticus (principal); G43.709 Chronic migraine without aura, not intractable, without status migrainosus; F41.8 Other specified anxiety disorders; Z87.442 Personal history of urinary calculi; Z87.891 Personal history of nicotine dependence; F19.10 Other psychoactive substance abuse, uncomplicated; Z90.09 Acquired absence of other part of head and neck; Z90.710 Acquired absence of both cervix and uterus; Z90.49 Acquired absence of other specified parts of digestive tract; Z88.5 Allergy status to narcotic agent; Z88.8 Allergy status to other drugs, medicaments and biological substances; Z91.040 Latex allergy status
CPT/HCPCS: 71045; 80053; 80305; 81001; 84484; 85025; 93005; 96374; 96375; 99284; J2405

== ENCOUNTER 2020-04-03 15:51 | Emergency (ER) | payer OTHER, SELFPAY ==
[2020-04-03 15:51] VITALS: BP 157/75; PULSE 75; RESP 18; TEMP 37; O2SAT 100; BMI 22.6
--- NOTE | 2020-04-03 16:04 | CT_ITS ---
PROCEDURE: CT HEAD/BRAIN WO CON CLINICAL INDICATION: seizure COMPARISON: CT CT HEAD/BRAIN WO CON from 01/20/2020 TECHNIQUE: Axial images obtained. All CT scans at the facility use one or more dose reduction, viz: automated exposure control, ma/kV adjustment per patient size (including targeted exams where dose is matched to indication, i.e. head), or iterative reconstruction technique. FINDINGS: No midline shift, mass effect, intracranial hemorrhage, hydrocephalus, or extra-axial fluid collection is evident. The calvarium has an unremarkable appearance. No mastoid effusion. No sinus air-fluid level. IMPRESSION: No acute intracranial finding Dictated by: Madi Milian MD 04/03/2020 16:49 Madi Milian MD in [place] 04/03/2020 16:49
--- NOTE | 2020-04-03 16:04 | CT_ITS ---
PROCEDURE: CT LUMBAR SPINE WO CON CLINICAL HISTORY: seizure Low back pain radiating down left leg, seizure COMPARISON: CT ABDPELW/O CT ABD PELVIS W/O CONTRAST from 05/10/2014 TECHNIQUE: Axial images obtained with sagittal and coronal reformats. All CT scans at the facility use one or more dose reduction, viz: automated exposure control, ma/kV adjustment per patient size (including targeted exams where dose is matched to indication, i.e. head), or iterative reconstruction technique. FINDINGS: There is normal alignment. No fracture or dislocation is evident. There is a small sclerotic focus in the right sacrum laterally. No canal stenosis or significant degenerative change. No lytic or blastic change of the lumbar spine. Scattered small nodes are present in the retroperitoneum. There is a horseshoe kidney present. There is mild dilatation of the left renal moiety. Small stones are present on the left measuring up to 3 mm. No definite ureteral calculus. There is colonic diverticulosis. IMPRESSION: 1. Unremarkable CT of the lumbar spine. 2. Horseshoe kidney with dilatation of the left renal moiety and small stones on the left. This dilatation was present on a previous abdomen CT of 05/10/2014. Dictated by: Madi Milian MD 04/03/2020 16:56 Madi Milian MD in [place] 04/03/2020 16:56
--- NOTE | 2020-04-03 16:11 | PC.NURSE ---
Pt to rad.
--- NOTE | 2020-04-03 16:14 | PC.NURSE ---
pt to CT
--- NOTE | 2020-04-03 16:51 | PC.NURSE ---
Pt SO came out stating she was having a lot of pain in her back and wants something for pain, notified
--- NOTE | 2020-04-03 16:57 | PC.NURSE ---
Ice pack given to pt
[2020-04-03 16:59] LABS: Basophils # 0.1 K/mm3 (0-0.2); Basophils % 0.8 % (0.1-2.0); Eosinophils # 0.2 K/mm3 (0.0-0.4); Eosinophils % 2.9 % (0.1-12.0); Hematocrit 39.3 % (37.0-47.0); Hemoglobin 13.5 g/dL (12.2-16.2); Lymphocytes % 43.9 % (10-50); Mean Corpuscular HGB Conc 34.3 g/dL (31.8-35.4); Mean Corpuscular Hemoglobin 32.3 pg (27.0-31.2); Mean Corpuscular Volume 93.9 fl (81-99); Mean Platelet Volume 9.2 fl (7.4-10.4); Monocytes # 0.4 K/mm3 (0.1-1.0); Monocytes % 5.5 % (1.7-9.3); Neutrophils # 3.2 K/mm3 (1.8-7.8); Neutrophils % 46.9 % (37.0-80.0); Platelet Count 299 K/mm3 (142-424); Red Blood Count 4.18 M/mm3 (4.20-5.40); Red Cell Distribution Width 12.8 % (11.5-17.5); White Blood Count 6.8 K/mm3 (4.8-10.8)
[2020-04-03 17:02] LABS: Chloride 103 mmol/L (98-107); Sodium 139 mmol/L (136-145)
--- NOTE | 2020-04-03 17:04 | PC.NURSE ---
pt refused depakote, states she takes he depakote at night and does not want to take it early. pt refused tylenol stating she is not supposed to take extra tylenol with her pain medication. Notified ER MD of the above. depakote would not allow me to document on it for refusal, so order was cancelled (ER MD aware).
[2020-04-03 17:05] LABS: Blood Urea Nitrogen 15 mg/dl (7-17); Creatinine Clearance Estimated 65 mL/min (50-200); Estimated Glomerular Filt Rate 60 ml/min (>60); GFR (African American) 73 ML/MIN (>60)
[2020-04-03 17:06] LABS: Calcium 9.5 mg/dl (8.4-10.2); Carbon Dioxide 32 mmol/L (22.0-30.0); Glucose 84 mg/dl (74-100)
--- NOTE | 2020-04-03 17:10 | PC.NURSE ---
pts significant came out to nurses station at this time stating pt now wants the dose of tylenol.
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
[2020-04-03 17:43] VITALS: BP 132/65; PULSE 105; RESP 17; TEMP 36.7; O2SAT 100
== END 2020-04-03 17:44 | disposition home or self-care (01) ==
PROVIDERS: Emergency Provider Emergency Medicine; PCP Emergency Medicine
DX: S39.012A Strain of muscle, fascia and tendon of lower back, initial encounter (principal); M54.16 Radiculopathy, lumbar region; G40.909 Epilepsy, unspecified, not intractable, without status epilepticus; F41.8 Other specified anxiety disorders; G43.709 Chronic migraine without aura, not intractable, without status migrainosus; Z87.442 Personal history of urinary calculi; Z88.5 Allergy status to narcotic agent; Z88.8 Allergy status to other drugs, medicaments and biological substances; Z79.899 Other long term (current) drug therapy; Z90.710 Acquired absence of both cervix and uterus
CPT/HCPCS: 70450; 72131; 80048; 85025; 99282

== ENCOUNTER 2020-07-10 12:38 | Emergency (ER) | payer OTHER, SELFPAY ==
[2020-07-10 13:15] VITALS: BP 114/43; PULSE 71; RESP 14; TEMP 36.6; O2SAT 99; BMI 23.0
--- NOTE | 2020-07-10 13:41 | HMH.EDUTC ---
[facility] [place] Disposition Clinical Impression: COPD exacerbation Acute bronchitis Qualifiers: Bronchitis organism: unspecified organism Qualified Code(s): J20.9 - Acute bronchitis, unspecified Disposition: Home, Self-Care Condition on Discharge: Good Instructions: COPD: When to Call for Help, DI for COVID-19 (Suspected or Confirmed ), Preventing the Spread of Coronavirus Discharge Instructions Additional Instructions: Drink plenty of fluids. Take tylenol for pain or fever. Return if you begin to have difficulty breathing. Follow up with your regular doctor. GO TO THE ER FOR ANY WORSENING SYMPTOMS Don't start the oral steroids until tomorrow, since you had the shot here today. FOLLOW THE DIRECTIONS ON THE COVID-19 HAND OUT THAT WE GAVE YOU REGARDING SELF-ISOLATION UNTIL YOU KNOW YOUR COVID-19 RESULTS Prescriptions: methylPREDNISolone [Medrol] 4 mg PO DIRECTED 6 Days #21 tab.ds.pk Transmission Status: Received by [employer] Benzonatate [Tessalon Perle 100mg Cap] 100 mg PO TIDP PRN #30 cap PRN Reason: Cough Transmission Status: Received by [employer] Azithromycin [Z-Steven 250mg Tab*] 250 mg PO UD DOSE PK #6 tab Transmission Status: Received by [employer] Referrals: Omar Hess MD [Primary Care Provider] - Time of Disposition: 13:56 Medical Decision Making - Medical Records Medical records reviewed: No: I reviewed the patient's medical records. - Darrius Inquiry Pt receiving controlled substance: No Vital Signs: 07/10/20 13:15 07/10/20 14:08 Temperature 97.8 F 97.8 F Temperature Source Oral Pulse Rate 71 Pulse Rate [Right Brachial] 71 Respiratory Rate 14 14 Blood Pressure 114/43 L Blood Pressure [Right Arm] 114/43 L Blood Pressure Mean [Right Arm] 66 Blood Pressure Source [Right Arm] Automatic Cuff Blood Pressure Position [Right Arm] Sitting 02 Sat by Pulse Oximetry 99 Oxygen Delivery Method Room Air Orders (Tests/Meds): ED MEDICATIONS Discontinued Medications Generic Name Dose Route Start Last Admin Trade Name Freq PRN Reason Stop Dose Admin Ceftriaxone Sodium 1 gm 07/10/20 13:53 07/10/20 14:03 Ceftriaxone 1gm Vial IM 07/10/20 13:54 1 gm ONCE ONE Administration Protocol Lidocaine HCl 0 ml 07/10/20 13:53 07/10/20 14:03 Lidocaine 1% 5ml Pf Vial IM 07/10/20 13:54 2.1 ml ONCE ONE Administration Methylprednisolone Sodium Succinate 125 mg 07/10/20 13:53 07/10/20 14:03 Methylprednisolone Sod Succ 125mg Vial IM 07/10/20 13:54 125 mg ONCE ONE Administration ORDERS Category Date Time Status Covid-19 Nasal PCR ([facility]) Routine Lab 07/10/20 13:36 Received [facility] HPI - General Stated complaint: cough Time Seen by Provider: 07/10/20 13:41 - History of Present Illness Provider Complaint: She states that for the past 1 week she has had cough, chest congestion, sinus congestion. She has a history of copd. - Related Data Home Medications Medication Instructions Recorded Confirmed desvenlafaxine succinate 50 mg ea PO 12/13/19 06/09/20 tablet,extended release 24 hr diazepam 10 mg tablet PO QHS tab 02/17/20 06/09/20 Previous Rx's Medication Instructions Recorded albuterol sulfate 90 mcg/actuation 1 inh INHALATION QID #8 g 09/21/19 aerosol inhaler albuterol sulfate 2.5 mg INHALATION Q6H #180 ml 09/22/19 hydrocodone 7.5 mg-acetaminophen 1 tab PO TID PRN #90 tab 06/09/20 325 mg tablet levofloxacin 500 mg tablet 500 mg PO DAILY #7 tab 06/09/20 phenazopyridine 200 mg tablet 200 mg PO BID 3 Days #6 tab 06/09/20 Azithromycin [Z-Steven 250mg Tab*] 250 mg PO UD DOSE PK #6 tab 07/10/20 Benzonatate [Tessalon Perle 100mg 100 mg PO TIDP PRN #30 cap 07/10/20 Cap] divalproex 250 mg tablet,delayed 500 mg PO QHS #60 tab 07/10/20 release methylPREDNISolone [Medrol] 4 mg PO DIRECTED 6 Days #21 07/10/20 tab.ds.pk Allergies Allergy/AdvReac Type Severity Reaction Status Date
[2020-07-10 14:08] VITALS: BP 114/43; PULSE 71; RESP 14; TEMP 36.6; O2SAT 99
== END 2020-07-10 14:16 | disposition home or self-care (01) ==
PROVIDERS: Emergency Provider Nurse Practitioner Family; PCP Emergency Medicine
DX: Z20.822 Contact with and (suspected) exposure to COVID-19 (principal); J44.0 Chronic obstructive pulmonary disease with (acute) lower respiratory infection; J44.1 Chronic obstructive pulmonary disease with (acute) exacerbation; F41.8 Other specified anxiety disorders; Z95.0 Presence of cardiac pacemaker; Z87.442 Personal history of urinary calculi; Z87.891 Personal history of nicotine dependence; Z88.8 Allergy status to other drugs, medicaments and biological substances; Z79.899 Other long term (current) drug therapy
CPT/HCPCS: 96372; 99202; G0463; U0003

== ENCOUNTER → 2020-09-08 14:05 | Outpatient (CLI) | payer OTHER, SELFPAY | PROVIDERS: PCP Emergency Medicine; Visit Provider Emergency Medicine | DX: Z20.822 Contact with and (suspected) exposure to COVID-19 (principal) | CPT/HCPCS: U0003 ==

== ENCOUNTER 2020-09-14 12:32 | Emergency (ER) | payer OTHER, SELFPAY ==
[2020-09-14] VITALS (19 sets, daily range): BP systolic 112–134; BP diastolic 63–104; PULSE 65–89; RESP 16; TEMP 36.6–36.9; O2SAT 95–100; BMI 23.0
[2020-09-14 13:00] LABS: Basophils # 0.1 K/mm3 (0-0.2); Basophils % 0.7 % (0.1-2.0); Eosinophils # 0.2 K/mm3 (0.0-0.4); Eosinophils % 2.8 % (0.1-12.0); Hematocrit 37.7 % (37.0-47.0); Lymphocytes # 3.2 K/mm3 (0.7-4.5); Mean Corpuscular HGB Conc 34.4 g/dL (31.8-35.4); Mean Corpuscular Hemoglobin 31.1 pg (27.0-31.2); Mean Corpuscular Volume 90.4 fl (81-99); Mean Platelet Volume 8.4 fl (7.4-10.4); Monocytes # 0.3 K/mm3 (0.1-1.0); Monocytes % 4.5 % (1.7-9.3); Neutrophils # 3.2 K/mm3 (1.8-7.8); Platelet Count 248 K/mm3 (142-424); Red Blood Count 4.17 M/mm3 (4.20-5.40); Red Cell Distribution Width 12.9 % (11.5-17.5)
[2020-09-14 13:03] LABS: Chloride 110 mmol/L (98-107)
[2020-09-14 13:04] LABS: Sodium 138 mmol/L (136-145)
[2020-09-14 13:06] LABS: Alanine Aminotransferase 16 U/L (12-78); Aspartate Amino Transferase 22 U/L (14-36); Blood Urea Nitrogen 12 mg/dl (7-17); Creatinine Clearance Estimated 109 mL/min (50-200); Estimated Glomerular Filt Rate 108 ml/min (>60); GFR (African American) 130 ML/MIN (>60)
[2020-09-14 13:07] LABS: Albumin/Globulin Ratio 1.4 (1.1-1.8); Alkaline Phosphatase 66 U/L (38-126); Bilirubin,Total 0.4 mg/dl (0.2-1.3); Calcium 8.9 mg/dl (8.4-10.2); Carbon Dioxide 21 mmol/L (22.0-30.0); Globulin 2.8 g/dL (1.3-3.2); Glucose 130 mg/dl (74-100); Total Protein,Serum 6.8 g/dl (6.3-8.2)
--- NOTE | 2020-09-14 13:22 | XR_ITS ---
PROCEDURE: XR CHEST PORTABLE CLINICAL HISTORY: cp Chest pain COMPARISON: CR CXR1 CHEST-PORTABLE from 09/26/2013 CR CXR2V XR chest 2V from 07/03/2017 CR XR CHEST PORTABLE from 03/03/2020 FINDINGS: The cardiomediastinal silhouette and pulmonary vascularity are within normal limits. The lungs are clear without infiltrates, suspicious nodules, or pleural effusions. There is a bone plate along the lower cervical spine. IMPRESSION: No acute findings. Dictated by: Madi Milian MD 09/14/2020 15:40 Madi Milian MD in [place] 09/14/2020 15:40
--- NOTE | 2020-09-14 13:22 | HMH.EDGENADL ---
ED Disposition Clinical Impression: Precordial chest pain, Tremor Disposition: Home, Self-Care Condition on Discharge: Good Instructions: DI for Chest Pain Additional Instructions: Additional instructions for CHEST PAIN: See your physician as soon as possible for further evaluation. Return immediately if worsening chest pain, vomiting, shortness of breath, fever, coughing of blood. Referrals: Omar Hess MD [Primary Care Provider] - - Critical Care Critical Care Time: No Attestation: On 09/14/20, the high probability of a clinically significant, sudden or life threatening deterioration of the following system(s) required my full and direct attention, intervention and personal management. The time I documented below is in addition to time spent performing reported procedures but includes the following listed in this critical care notation. Medical Decision Making - Darrius Inquiry Pt receiving controlled substance: No Vital Signs: 09/14/20 12:34 09/14/20 12:36 09/14/20 12:39 Temperature 98.5 F Temperature Source Oral Pulse Rate 87 89 Pulse Rate [Radial] 86 Respiratory Rate 16 Blood Pressure Blood Pressure [Right Arm] 114/75 Blood Pressure Mean Blood Pressure Mean [Right Arm] 88 Blood Pressure Position [Right Arm] Sitting 02 Sat by Pulse Oximetry 98 97 95 Oxygen Delivery Method Room Air 09/14/20 13:00 09/14/20 13:30 09/14/20 13:44 Temperature Temperature Source Pulse Rate 80 Pulse Rate [Radial] Respiratory Rate Blood Pressure 118/70 134/76 Blood Pressure [Right Arm] Blood Pressure Mean 81 95 Blood Pressure Mean [Right Arm] Blood Pressure Position [Right Arm] 02 Sat by Pulse Oximetry 98 Oxygen Delivery Method 09/14/20 13:45 09/14/20 14:00 09/14/20 14:15 Temperature Temperature Source Pulse Rate 78 65 67 Pulse Rate [Radial] Respiratory Rate Blood Pressure 122/63 Blood Pressure [Right Arm] Blood Pressure Mean 82 Blood Pressure Mean [Right Arm] Blood Pressure Position [Right Arm] 02 Sat by Pulse Oximetry 98 99 100 Oxygen Delivery Method 09/14/20 14:30 09/14/20 14:45 09/14/20 15:00 Temperature Temperature Source Pulse Rate 83 83 70 Pulse Rate [Radial] Respiratory Rate Blood Pressure 129/104 H Blood Pressure [Right Arm] Blood Pressure Mean 112 Blood Pressure Mean [Right Arm] Blood Pressure Position [Right Arm] 02 Sat by Pulse Oximetry 98 100 100 Oxygen Delivery Method 09/14/20 15:01 09/14/20 15:18 09/14/20 16:06 Temperature Temperature Source Pulse Rate 76 87 72 Pulse Rate [Radial] Respiratory Rate Blood Pressure 121/82 116/67 Blood Pressure [Right Arm] Blood Pressure Mean 95 Blood Pressure Mean [Right Arm] Blood Pressure Position [Right Arm] 02 Sat by Pulse Oximetry 100 98 99 Oxygen Delivery Method 09/14/20 16:12 09/14/20 16:15 09/14/20 16:30 Temperature Temperature Source Pulse Rate 74 73 74 Pulse Rate [Radial] Respiratory Rate Blood Pressure 116/67 112/65 Blood Pressure [Right Arm] Blood Pressure Mean 94 80 Blood Pressure Mean [Right Arm] Blood Pressure Position [Right Arm] 02 Sat by Pulse Oximetry 99 100 99 Oxygen Delivery Method - Lab Data Lab Results 09/14/20 12:45: WBC 7.0, RBC 4.17 L, Hgb 13.0, Hct 37.7, MCV 90.4, MCH 31.1, MCHC 34.4, RDW 12.9, Plt Count 248, MPV 8.4, Neut % (Auto) 46.0, Lymph % (Auto) 46.0, [place] % (Auto) 4.5, Eos % (Auto) 2.8, Baso % (Auto) 0.7, Neut # (Auto) 3.2, Lymph # (Auto) 3.2, [place] # (Auto) 0.3, Eos # (Auto) 0.2, Baso # (Auto) 0.1 09/14/20 12:45: Sodium 138, Potassium 4.0, Chloride 110 H, Carbon Dioxide 21 L, Anion Gap 11.0, BUN 12, Creatinine 0.60, Estimated Creat Clear 109, Estimated GFR 108, Est GFR ( Amer) 130, Glucose 130 H, Calcium 8.9, Total Bilirubin 0.4, AST 22, ALT 16, Alkaline Phosphatase 66, Total Protein 6.8, Albumin 4.0, Globulin 2.8, [place]
--- NOTE | 2020-09-14 13:24 | ECG_ITS ---
APPROVED REPORT Exam: Resting ECG HR:76 bpm ECG Measurements Heart Rate 76 AXES NC 116 P 70 QRSd 72 QRS 87 QT 384 T 68 QTc 432 Conclusion Normal sinus rhythm Normal ECG Electronically signed by : Adam Vargas, 09/15/2020 11:41:14
[2020-09-14 13:25] LABS: Valproic Acid, (Depakene) < 10.0 ug/ml (50-100)
[2020-09-14 13:48] LABS: Troponin I < 0.01 ng/ml (0.00-0.034)
[2020-09-14 13:48] LABS: Microscopic, Urine URINE MICROSCOPIC (MICROSCOPIC)
[2020-09-14 13:50] LABS: Appearance,Urine CLEAR (Clear); Bilirubin,Urine Negative (Negative); Blood, Urine Negative (Negative); Color,Urine YELLOW (Yellow); Glucose,Urine (UA) Negative (Negative); Ketones,Urine Negative (Negative); Leukocyte Esterase,Urine Negative (Negative); Nitrate,Urine Negative (Negative); Protein,Urine Negative (Negative); Urobilinogen,Urine 0.2 EU/dl (0.2)
[2020-09-14 14:06] LABS: RBC,Urine Occasional #/hpf (0-3)
[2020-09-14 16:32] LABS: Troponin I < 0.01 ng/ml (0.00-0.034)
== END 2020-09-14 17:36 | disposition home or self-care (01) ==
PROVIDERS: Emergency Provider Emergency Medicine; PCP Emergency Medicine
DX: R07.2 Precordial pain (principal); M25.522 Pain in left elbow; R25.2 Cramp and spasm; M79.2 Neuralgia and neuritis, unspecified; J45.909 Unspecified asthma, uncomplicated; F41.8 Other specified anxiety disorders; Z79.899 Other long term (current) drug therapy; Z87.891 Personal history of nicotine dependence; Z88.5 Allergy status to narcotic agent; Z88.8 Allergy status to other drugs, medicaments and biological substances
CPT/HCPCS: 71045; 80053; 80164; 81001; 84484; 85025; 93005; 96374; 99283; J2405

== ENCOUNTER → 2020-10-03 17:16 | Outpatient (CLI) | payer OTHER, SELFPAY ==
[2020-10-03 19:54] LABS: Amphetamine/Metha Screen,Urine Negative ng/ml (<1000); Barbiturates Screen,Urine Negative ng/ml (<200)
[2020-10-03 19:55] LABS: Benzodiazepines Screen,Urine Positive ng/ml (<200)
[2020-10-03 19:56] LABS: Cannabinoid Screen,Urine Negative ng/ml (<50); Cocaine Screen,Urine Negative ng/ml (<300)
[2020-10-03 19:57] LABS: Methadone Screen,Urine Negative ng/ml (<300)
[2020-10-03 19:58] LABS: Opiate Screen,Urine Positive ng/ml (<300); Phencyclidine Screen,Urine Negative ng/ml (<25)
== END ==
PROVIDERS: Visit Provider Emergency Medicine
DX: Z79.899 Other long term (current) drug therapy (principal)
CPT/HCPCS: 80305

== ENCOUNTER → 2020-10-18 09:33 | Outpatient (CLI) | payer OTHER, SELFPAY ==
--- NOTE | 2020-10-18 09:35 | XR_ITS ---
PROCEDURE: XR ELBOW LT MIN 3V CLINICAL INDICATION: LEFT PAIN Pain COMPARISON: CR ELBR3 ELBOW-RT-3 VIEWS from 03/30/2013 CR ELBOWLMLT XR elbow LT 2V from 11/05/2017 FINDINGS: No fracture or dislocation. No lytic or blastic change. There is normal mineralization. The joint spaces are well-preserved. No significant degenerative/arthritic changes. No erosive changes evident. Other findings:None. IMPRESSION: No acute findings. Dictated by: Mdai Milian MD 10/18/2020 16:47 Madi Milian MD in [place] 10/18/2020 16:47
--- NOTE | 2020-10-18 10:01 | XR_ITS ---
PROCEDURE: XR WRIST LT MIN 3V CLINICAL INDICATION: LT wrist pain COMPARISON: No exams were available for comparison FINDINGS: No fracture or dislocation. No lytic or blastic change. There is normal mineralization. The joint spaces are well-preserved. No significant degenerative/arthritic changes. No erosive changes evident. Other findings:None. IMPRESSION: No acute findings. Dictated by: Madi Milian MD 10/18/2020 16:44 Madi Milian MD in [place] 10/18/2020 16:44
== END ==
PROVIDERS: PCP Emergency Medicine; Visit Provider Orthopaedic Surgery
DX: M25.532 Pain in left wrist (principal); M25.522 Pain in left elbow
CPT/HCPCS: 73080; 73110

== ENCOUNTER 2021-01-01 18:58 | Emergency (ER) | payer OTHER, SELFPAY ==
[2021-01-01 18:59] VITALS: BP 122/59; PULSE 87; RESP 18; TEMP 36.4; O2SAT 97; BMI 23.0
--- NOTE | 2021-01-01 19:22 | HMH.EDBACK ---
ED Disposition Condition on Discharge: Good - Critical Care Critical Care Time: No <Madeleine Eagle - Last Filed: 01/01/21 20:01> <Omar Hess - Last Filed: 01/01/21 21:03> Clinical Impression: Lumbar radiculopathy Sciatica Qualifiers: Laterality: left Qualified Code(s): M54.32 - Sciatica, left side Disposition: Home, Self-Care Instructions: DI for Back Pain With Sciatica Additional Instructions: see pcp for follow up Referrals: Omar Hess MD [Primary Care Provider] - Attestation: On 01/01/21, the high probability of a clinically significant, sudden or life threatening deterioration of the following system(s) required my full and direct attention, intervention and personal management. The time I documented below is in addition to time spent performing reported procedures but includes the following listed in this critical care notation. Medical Decision Making - Medical Records Medical records reviewed: Yes: I reviewed the patient's medical records. - Darrius Inquiry Pt receiving controlled substance: No <Madeleine Eagle - Last Filed: 01/01/21 20:01> - Lab Data Lab results reviewed: Yes: I reviewed the patient's lab results. - Reevaluation(s) Time: 21:02 <Omar Hess - Last Filed: 01/01/21 21:03> Vital Signs: 01/01/21 18:59 Temperature 97.6 F Temperature Source Oral Pulse Rate [Left Radial] 87 Respiratory Rate 18 Blood Pressure [Right Arm] 122/59 L Blood Pressure Mean [Right Arm] 80 Blood Pressure Source [Right Arm] Automatic Cuff Blood Pressure Position [Right Arm] Supine 02 Sat by Pulse Oximetry 97 Oxygen Delivery Method Room Air - Lab Data Lab Results 01/01/21 20:15: Urine Color Yellow, Urine Appearance Clear, Urine pH 6.5, Ur Specific [place] 1.010, Urine Protein Negative, Urine Glucose (UA) Negative, Urine Ketones Negative, Urine Blood Negative, Urine Nitrate Negative, Urine Bilirubin Negative, Urine Urobilinogen 0.2, Ur Leukocyte Esterase Negative Orders (Tests/Meds): ED MEDICATIONS Generic Name Dose Route Start Last Admin Trade Name Freq PRN Reason Stop Dose Admin Sodium Chloride 1,000 mls @ 500 mls/hr 01/01/21 20:15 01/01/21 20:25 Sod Chlor 0.9% 1000ml Bag IV 01/31/21 20:14 500 mls/hr .Q2H KIRAN Administration Discontinued Medications Generic Name Dose Route Start Last Admin Trade Name John PRN Reason Stop Dose Admin Dexamethasone 10 mg 01/01/21 19:17 01/01/21 19:43 Dexamethasone 4mg Tablet PO 01/01/21 19:18 10 mg ONCE ONE Administration Gabapentin 300 mg 01/01/21 19:17 01/01/21 19:43 Gabapentin 300mg Capsule PO 01/01/21 19:18 300 mg ONCE ONE Administration Hydromorphone HCl 1 mg 01/01/21 20:08 01/01/21 20:25 Hydromorphone 2mg/Ml Syringe IV 01/01/21 20:09 1 mg ONCE ONE Administration Ketorolac Tromethamine 30 mg 01/01/21 20:08 01/01/21 20:25 Ketorolac 30mg/Ml Vial IV 01/01/21 20:09 30 mg ONCE ONE Administration Methylprednisolone Sodium Succinate 125 mg 01/01/21 20:07 01/01/21 20:25 Methylprednisolone Sod Succ 125mg Vial IV 01/01/21 20:08 125 mg ONCE ONE Administration Promethazine HCl 12.5 mg 01/01/21 20:08 01/01/21 20:26 Promethazine Hcl 25mg/Ml 1ml Vial IV 01/01/21 20:09 12.5 mg ONCE ONE Administration Sodium Chloride 25 ml 01/01/21 20:08 01/01/21 20:26 Sodium Chloride 0.9% 25ml Bag IV 01/01/21 20:09 25 ml ONCE ONE Administration ORDERS Category Date Time Status Amylase Stat Lab 01/01/21 20:20 Stop Req CRP [C-Reactive Protein] Stat Lab 01/01/21 20:20 Stop Req Complete Blood Count Auto Diff Stat Lab 01/01/21 20:20 Stop Req Comprehensive Metabolic Panel Stat Lab 01/01/21 20:20 Stop Req Erythrocyte Sedimentation Rate Stat Lab 01/01/21 20:20 Stop Req Lipase Stat Lab 01/01/21 20:20 Stop Req Procalcitonin Stat Lab 01/01/21 20:20 Stop Req Urinalysis and Microscopic Stat Lab 01/01/21 20:15 Results - Reevaluation(s) Ree
[2021-01-01 21:12] VITALS: BP 113/72; PULSE 88; RESP 15; TEMP 36.8; O2SAT 98
== END 2021-01-01 21:15 | disposition home or self-care (01) ==
PROVIDERS: Emergency Provider Emergency Medicine; PCP Emergency Medicine
DX: M54.32 Sciatica, left side (principal); M54.16 Radiculopathy, lumbar region; F41.8 Other specified anxiety disorders; Z87.442 Personal history of urinary calculi
CPT/HCPCS: 80053; 81001; 82150; 83690; 84145; 85025; 85651; 86140; 96365; 96375; 96376; 99281; 99282

== ENCOUNTER 2021-01-19 19:31 | Emergency (ER) | payer OTHER, SELFPAY ==
[2021-01-19 19:38] VITALS: BP 141/73; PULSE 93; RESP 18; TEMP 36.8; O2SAT 97; BMI 22.1
--- NOTE | 2021-01-19 19:43 | XR_ITS ---
PROCEDURE INFORMATION: Exam: XR Lumbosacral Spine Exam date and time: 01/19/2021 7:43 PM Age: 45 years old Clinical indication: Sciatica; Bilateral; Patient HX: Extreme back pain TECHNIQUE: Imaging protocol: XR of the lumbosacral spine. Views: 2 or 3 views. COMPARISON: CT LUMBAR SPINE WO CON 04/03/2020 4:24 PM FINDINGS: Bones/joints: Normal anatomic alignment. Vertebral body heights are well preserved. There is no significant disc space narrowing. The spinal canal is patent. No aggressive osseous lesions. Soft tissues: There is no significant soft tissue swelling. Gastrointestinal tract: Visualized bowel gas pattern is nonobstructive. Other findings: There is no evidence of acutely displaced fractures. There is no evidence of joint dislocation. IMPRESSION: No discrete findings to explain the patient's symptoms. Consider further evaluation with lumbar spine MRI if clinically warranted.
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
[2021-01-19 20:42] VITALS: BP 136/72; PULSE 86; RESP 18; TEMP 36.8; O2SAT 98
== END 2021-01-19 20:44 | disposition home or self-care (01) ==
PROVIDERS: Emergency Provider Emergency Medicine; PCP Emergency Medicine
DX: M54.42 Lumbago with sciatica, left side (principal); G89.29 Other chronic pain; F41.8 Other specified anxiety disorders; Z87.442 Personal history of urinary calculi; Z79.899 Other long term (current) drug therapy; Z88.8 Allergy status to other drugs, medicaments and biological substances
CPT/HCPCS: 72100; 96372; 99282

== ENCOUNTER → 2021-01-22 13:45 | Outpatient (CLI) | payer OTHER, SELFPAY ==
[2021-01-22 16:07] LABS: Amphetamine/Metha Screen,Urine Negative ng/ml (<1000)
[2021-01-22 16:08] LABS: Barbiturates Screen,Urine Negative ng/ml (<200); Benzodiazepines Screen,Urine Positive ng/ml (<200)
[2021-01-22 16:09] LABS: Cannabinoid Screen,Urine Negative ng/ml (<50)
[2021-01-22 16:10] LABS: Cocaine Screen,Urine Negative ng/ml (<300); Methadone Screen,Urine Negative ng/ml (<300)
[2021-01-22 16:11] LABS: Opiate Screen,Urine Positive ng/ml (<300)
[2021-01-22 16:12] LABS: Phencyclidine Screen,Urine Negative ng/ml (<25)
== END ==
PROVIDERS: Visit Provider Emergency Medicine
DX: M54.32 Sciatica, left side (principal)
CPT/HCPCS: 80305

== ENCOUNTER → 2021-01-30 13:52 | Outpatient (CLI) | payer OTHER, SELFPAY ==
--- NOTE | 2021-01-30 13:52 | MR_ITS ---
PROCEDURE: MR LUMBAR SPINE WO CON CLINICAL INDICATION: Lumbosacral spondylosis with radiculopathy Low back pain with left-sided leg pain and numbness and buttock pain COMPARISON: MR MR LUMBAR SPINE WO CON from 10/28/2019 CR XR LUMBAR SPINE 2-3V from 01/19/2021 TECHNIQUE: Standard multiplanar multiecho sequences are performed without contrast. 3-D MIP and myelographic images are also rendered and reviewed FINDINGS: There is straightening of the lumbar lordosis similar to the previous exam. Spinal cord ends at the L1 level. No acute fracture or dislocation. L1-L2: Unremarkable. L2-L3: Unremarkable. L3-L4: Mild facet and ligamentum hypertrophy not significantly changed. Minimal amount fluid in the facet joints L4-5: Mild facet and ligamentum hypertrophy not significantly changed with minimal amount of fluid in the facet joints. L5-S1: Minimal bulging disc with minimal central disc protrusion without impingement not significantly changed. Mild facet hypertrophic change. No extruded herniated disc evident. No significant change from the previous exam. 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 IMPRESSION: 1. Mild lumbar spondylosis as detailed above overall not significantly changed. 2. Horseshoe kidney with hydronephrosis Dictated by: Madi Milian MD 01/30/2021 17:50 Madi Milian MD in [place] 01/30/2021 17:50
== END ==
PROVIDERS: PCP Emergency Medicine; Visit Provider Specialist
DX: M47.27 Other spondylosis with radiculopathy, lumbosacral region (principal)
CPT/HCPCS: 72148; 76376

== ENCOUNTER 2021-03-09 11:25 | Emergency (ER) | payer OTHER, SELFPAY ==
[2021-03-09 11:41] VITALS: BP 102/62; PULSE 69; RESP 20; TEMP 36.9; O2SAT 96; BMI 23.0
[2021-03-09 12:41] VITALS: BP 102/6; PULSE 69; RESP 20; TEMP 36.9; O2SAT 96; BMI 23.0
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
[2021-03-09 13:45] VITALS: BP 120/82; PULSE 64; RESP 14; TEMP 36.6
[2021-03-09 19:34] LABS: UTC Strep Screen (Rapid) Negative (Negative)
== END 2021-03-09 13:48 | disposition home or self-care (01) ==
LOC: UTC 11:30 → ER 11:33 → UTC 11:43
PROVIDERS: Emergency Provider Nurse Practitioner Family; PCP Emergency Medicine
DX: U07.1 COVID-19 (principal); J20.9 Acute bronchitis, unspecified; B34.9 Viral infection, unspecified
CPT/HCPCS: 87880; 99203; G0463; U0003

== ENCOUNTER 2021-03-14 09:47 | Outpatient (CLI) | payer OTHER, SELFPAY ==
[2021-03-14] VITALS (7 sets, daily range): BP systolic 115–128; BP diastolic 75–88; PULSE 59–63; RESP 16; TEMP 36.4–36.7; O2SAT 93–96
== END 2021-03-14 12:08 | disposition home or self-care (01) ==
LOC: INF 09:48
PROVIDERS: PCP Emergency Medicine; Visit Provider Emergency Medicine
DX: U07.1 COVID-19 (principal)
CPT/HCPCS: 96365

== ENCOUNTER 2021-03-16 17:49 | Emergency (ER) | payer OTHER, SELFPAY ==
[2021-03-16 17:45] VITALS: BP 161/85; PULSE 67; RESP 18; TEMP 36.7; O2SAT 100; BMI 23.0
[2021-03-16 17:48] VITALS: BP 164/85; PULSE 68; RESP 18; O2SAT 99
[2021-03-16 18:00] VITALS: BP 133/85; PULSE 61; RESP 17; O2SAT 98
--- NOTE | 2021-03-16 18:10 | CT_ITS ---
PROCEDURE INFORMATION: Exam: CT Abdomen And Pelvis Without Contrast Exam date and time: 03/16/21 06:10 PM Age: 45 years old Clinical indication: Abdominal pain; Generalized; Prior surgery; Surgery date: 6+ months; Surgery type: Appendix removed; Uterus removed; Patient HX: Abdomen pain TECHNIQUE: Imaging protocol: Computed tomography of the abdomen and pelvis without contrast. Radiation optimization: All CT scans at this facility use at least one of these dose optimization techniques: automated exposure control; mA and/or kV adjustment per patient size (includes targeted exams where dose is matched to clinical indication); or iterative reconstruction. COMPARISON: ABDPELW/O CT ABD PELVIS W/O CONTRAST 05/10/14 04:44 PM FINDINGS: Tubes, catheters and devices: None noted. Lungs: Lung bases appear clear. Heart: No significant coronary calcifications. No cardiomegaly. No significant pericardial effusion. Liver: Normal. No mass. Gallbladder and bile ducts: Normal. No calcified stones. No ductal dilation. Pancreas: Normal. No ductal dilation. Spleen: Normal. No splenomegaly. Adrenal glands: Normal. No mass. Kidneys and ureters: Horseshoe kidney. Mild hydronephrosis left moiety. Nonobstructive caliceal calcifications left moiety. Stable appearance since 05/10/2014. Stomach and bowel: Unremarkable. No obstruction. No mucosal thickening. Appendix: Appendectomy. Intraperitoneal space: Unremarkable. No free air. No significant fluid collection. Retroperitoneal space: No significant retroperitoneal inflammatory changes are noted. Vasculature: Unremarkable. No abdominal aortic aneurysm. Lymph nodes: Unremarkable. No enlarged lymph nodes. Urinary bladder: Unremarkable as visualized. Reproductive: Hysterectomy. Bones/joints: Unremarkable. No acute fracture. Soft tissues: Unremarkable. IMPRESSION: 1. No acute findings. 2. Horseshoe kidney. Stable hydronephrosis left moiety with nonobstructive caliceal calcifications.
--- NOTE | 2021-03-16 18:15 | HMH.EDABDPAI ---
ED Disposition Clinical Impression: Gastroenteritis, Exposure to COVID-19 virus Disposition: Home, Self-Care Condition on Discharge: Good Instructions: DI for Viral Gastroenteritis -- Adult Prescriptions: Promethazine HCl [Phenergan 25mg tab] 25 mg PO TID PRN #20 tab PRN Reason: Nausea And Vomiting Transmission Status: Pending to [facility] Referrals: Provider,Referral, [Primary Care Provider] - - Critical Care Critical Care Time: No Attestation: On 03/16/21, the high probability of a clinically significant, sudden or life threatening deterioration of the following system(s) required my full and direct attention, intervention and personal management. The time I documented below is in addition to time spent performing reported procedures but includes the following listed in this critical care notation. Medical Decision Making - Medical Records Medical records reviewed: Yes: I reviewed the patient's medical records. - Darrius Inquiry Pt receiving controlled substance: Yes Darrius was queried for this patient: Yes Risks and benefits of using a controlled substance: were discussed with pt by me Vital Signs: 03/16/21 17:45 03/16/21 17:48 03/16/21 18:00 Temperature 98.1 F Temperature Source Oral Pulse Rate 68 61 Pulse Rate [Left Radial] 67 Respiratory Rate 18 18 17 Blood Pressure 164/85 H 133/85 Blood Pressure [Right Arm] 161/85 H Blood Pressure Mean 101 107 Blood Pressure Mean [Right Arm] 110 Blood Pressure Source [Right Arm] Automatic Cuff Blood Pressure Position [Right Arm] Sitting 02 Sat by Pulse Oximetry 100 99 98 Oxygen Delivery Method Room Air - Lab Data Lab Results 03/16/21 19:00: Urine Color Yellow, Urine Appearance Clear, Urine pH 7.0, Ur Specific Duncan 1.010, Urine Protein Negative, Urine Glucose (UA) Negative, Urine Ketones Negative, Urine Blood Negative, Urine Nitrate Negative, Urine Bilirubin Negative, Urine Urobilinogen 0.2, Ur Leukocyte Esterase Negative 03/16/21 19:00: WBC 5.0, RBC 4.06 L, Hgb 13.2, Hct 38.0, MCV 93.6, MCH 32.4 H, MCHC 34.6, RDW 11.9, Plt Count 266, MPV 8.8, Neut % (Auto) 49.2, Lymph % (Auto) 42.8, Potter % (Auto) 6.1, Eos % (Auto) 1.4, Baso % (Auto) 0.6, Neut # (Auto) 2.5, Lymph # (Auto) 2.1, Potter # (Auto) 0.3, Eos # (Auto) 0.1, Baso # (Auto) 0.0 03/16/21 19:00: Urine HCG, Qual Negative 03/16/21 19:00: Sodium 139, Potassium 3.9, Chloride 104, Carbon Dioxide 28, Anion Gap 10.9, BUN 9, Creatinine 0.50 L, Estimated Creat Clear 131, Estimated GFR 133, Est GFR ( Amer) 161, Glucose 94, Calcium 8.5, Total Bilirubin 0.2, AST 61 H, ALT 75, Alkaline Phosphatase 78, Total Protein 6.3, Albumin 3.5, Globulin 2.8, Albumin/Globulin Ratio 1.3, Lipase 39 Result diagrams: 03/16/21 19:00 03/16/21 19:00 Orders (Tests/Meds): ED MEDICATIONS Generic Name Dose Route Start Last Admin Trade Name Freq PRN Reason Stop Dose Admin Sodium Chloride 1,000 mls @ 999 mls/hr 03/16/21 18:15 03/16/21 18:50 Sod Chlor 0.9% 1000ml Bag IV 03/16/21 19:15 999 mls/hr .Q1H1M KIRAN Administration Discontinued Medications Generic Name Dose Route Start Last Admin Trade Name Freq PRN Reason Stop Dose Admin Morphine Sulfate 4 mg 03/16/21 18:11 03/16/21 18:48 Morphine 4mg/Ml Syringe IV 03/16/21 18:12 4 mg ONCE ONE Administration Promethazine HCl 25 mg 03/16/21 18:10 03/16/21 18:49 Promethazine Hcl 25mg/Ml 1ml Vial IV 03/16/21 18:11 25 mg ONCE ONE Administration Sodium Chloride 25 ml 03/16/21 18:10 03/16/21 18:49 Sodium Chloride 0.9% 25ml Bag IV 03/16/21 18:11 25 ml ONCE ONE Administration ORDERS Category Date Time Status Urinalysis and Microscopic Stat Lab 03/16/21 19:00 Results - CT Data CT Scan: Abdomen, Pelvis Time Received: 19:[address] Reviewed: Yes: I have reviewed the patient's CT results, I have viewed the radiologist's interpretation Findings Narrative: IMPRESSION: 1. No acute findings. 2.
[2021-03-16 19:11] LABS: Microscopic, Urine URINE MICROSCOPIC (MICROSCOPIC)
[2021-03-16 19:12] LABS: Basophils % 0.6 % (0.1-2.0); Eosinophils # 0.1 K/mm3 (0.0-0.4); Eosinophils % 1.4 % (0.1-12.0); Hemoglobin 13.2 g/dL (12.2-16.2); Lymphocytes # 2.1 K/mm3 (0.7-4.5); Lymphocytes % 42.8 % (10-50); Mean Corpuscular HGB Conc 34.6 g/dL (31.8-35.4); Mean Corpuscular Hemoglobin 32.4 pg (27.0-31.2); Mean Corpuscular Volume 93.6 fl (81-99); Mean Platelet Volume 8.8 fl (7.4-10.4); Monocytes # 0.3 K/mm3 (0.1-1.0); Monocytes % 6.1 % (1.7-9.3); Neutrophils # 2.5 K/mm3 (1.8-7.8); Neutrophils % 49.2 % (37.0-80.0); Platelet Count 266 K/mm3 (142-424); Red Blood Count 4.06 M/mm3 (4.20-5.40); Red Cell Distribution Width 11.9 % (11.5-17.5)
[2021-03-16 19:15] LABS: Appearance,Urine CLEAR (Clear); Bilirubin,Urine Negative (Negative); Blood, Urine Negative (Negative); Color,Urine YELLOW (Yellow); Glucose,Urine (UA) Negative (Negative); Ketones,Urine Negative (Negative); Leukocyte Esterase,Urine Negative (Negative); Nitrate,Urine Negative (Negative); Protein,Urine Negative (Negative); Urobilinogen,Urine 0.2 EU/dl (0.2)
[2021-03-16 19:16] LABS: Urine Pregnancy, HCG Qual. Negative (Negative)
[2021-03-16 19:26] LABS: Chloride 104 mmol/L (98-107); Potassium 3.9 mmoL/L (3.5-5.1); Sodium 139 mmol/L (136-145)
[2021-03-16 19:29] LABS: Alanine Aminotransferase 75 U/L (12-78); Albumin Level 3.5 g/dl (3.5-5.0); Albumin/Globulin Ratio 1.3 (1.1-1.8); Alkaline Phosphatase 78 U/L (38-126); Anion Gap 10.9 mEq/L (5-15); Aspartate Amino Transferase 61 U/L (14-36); Bilirubin,Total 0.2 mg/dl (0.2-1.3); Blood Urea Nitrogen 9 mg/dl (7-17); Calcium 8.5 mg/dl (8.4-10.2); Carbon Dioxide 28 mmol/L (22.0-30.0); Creatinine Clearance Estimated 131 mL/min (50-200); Estimated Glomerular Filt Rate 133 ml/min (>60); GFR (African American) 161 ML/MIN (>60); Globulin 2.8 g/dL (1.3-3.2); Glucose 94 mg/dl (74-100); Lipase 39 U/L (23-300); Total Protein,Serum 6.3 g/dl (6.3-8.2)
[2021-03-16 19:41] LABS: Bacteria,Urine Trace /lpf; Squamous Epithelial Cell,Urine Occasional #/hpf (0-5); WBC,Urine Occasional #/hpf (0-3)
--- NOTE | 2021-03-16 19:52 | PC.NURSE ---
Pt calling someone to pick her up, she has been instructed with d/c instruction and medication sent to clinic px.
[2021-03-16 19:54] VITALS: BP 136/78; PULSE 87; RESP 18; TEMP 37.2; O2SAT 99
== END 2021-03-16 20:34 | disposition home or self-care (01) ==
PROVIDERS: Emergency Provider Emergency Medicine
DX: K52.9 Noninfective gastroenteritis and colitis, unspecified (principal); F41.8 Other specified anxiety disorders; G43.709 Chronic migraine without aura, not intractable, without status migrainosus; Z87.891 Personal history of nicotine dependence; Z88.5 Allergy status to narcotic agent; Z88.8 Allergy status to other drugs, medicaments and biological substances
CPT/HCPCS: 74176; 80053; 81001; 81025; 83690; 85025; 96365; 99282

== ENCOUNTER 2021-03-18 09:37 | Emergency (ER) | payer OTHER, SELFPAY ==
[2021-03-18] VITALS (8 sets, daily range): BP systolic 103–158; BP diastolic 60–135; PULSE 63–87; RESP 16–20; TEMP 36.6–36.9; O2SAT 97–100; BMI 23.0
--- NOTE | 2021-03-18 09:28 | XR_ITS ---
PROCEDURE INFORMATION: Exam: XR Chest Exam date and time: 03/18/2021 9:28 AM Age: 45 years old Clinical indication: Pain; On breathing; Additional info: Eval for covid pna TECHNIQUE: Imaging protocol: XR of the chest. Views: 1 view. COMPARISON: CR XR CHEST PORTABLE 09/14/2020 1:32 PM FINDINGS: Lungs: Mild reticular markings in the lung bases bilaterally. No consolidation. Pleural spaces: Unremarkable. No pleural effusion. No pneumothorax. Heart/Mediastinum: Unremarkable. No cardiomegaly. Bones/joints: Surgical changes are present in the cervical spine. IMPRESSION: Mild reticular markings in the lung bases, could reflect viral process. No consolidation.
--- NOTE | 2021-03-18 09:29 | HMH.EDGENADL ---
ED Disposition Clinical Impression: COVID-19 Headache Qualifiers: Headache type: tension-type Headache chronicity pattern: acute headache Intractability: not intractable Qualified Code(s): G44.209 - Tension-type headache, unspecified, not intractable Vomiting Qualifiers: Vomiting type: unspecified Vomiting Intractability: non-intractable Nausea presence: with nausea Qualified Code(s): R11.2 - Nausea with vomiting, unspecified Disposition: Home, Self-Care Condition on Discharge: Good Instructions: DI for Headache, DI for Vomiting -- Adult Time of Disposition: 12:35 - Critical Care Critical Care Time: No Attestation: On , the high probability of a clinically significant, sudden or life threatening deterioration of the following system(s) required my full and direct attention, intervention and personal management. The time I documented below is in addition to time spent performing reported procedures but includes the following listed in this critical care notation. Medical Decision Making - Medical Records Medical records reviewed: Yes: I reviewed the patient's medical records. - Darrius Inquiry Pt receiving controlled substance: No Vital Signs: 03/18/21 09:00 03/18/21 09:30 03/18/21 09:31 Temperature 98.4 F Temperature Source Oral Pulse Rate 70 72 Pulse Rate [Radial] 63 Respiratory Rate 20 17 18 Blood Pressure 158/135 H 107/89 L Blood Pressure [Right Arm] 145/67 H Blood Pressure Mean 142 95 Blood Pressure Mean [Right Arm] 93 Blood Pressure Position [Right Arm] Sitting 02 Sat by Pulse Oximetry 98 97 100 Oxygen Delivery Method Room Air 03/18/21 10:00 Temperature Temperature Source Pulse Rate 76 Pulse Rate [Radial] Respiratory Rate 18 Blood Pressure 103/79 L Blood Pressure [Right Arm] Blood Pressure Mean 88 Blood Pressure Mean [Right Arm] Blood Pressure Position [Right Arm] 02 Sat by Pulse Oximetry 100 Oxygen Delivery Method - Lab Data Lab Results 03/18/21 09:00: WBC 7.9 D, RBC 4.78, Hgb 14.9, Hct 44.5, MCV 93.1, MCH 31.2, MCHC 33.6, RDW 12.0, Plt Count 375 D, MPV 8.9, Neut % (Auto) 71.5, Lymph % (Auto) 22.4, Carroll % (Auto) 3.7, Eos % (Auto) 1.8, Baso % (Auto) 0.5, Neut # (Auto) 5.7, Lymph # (Auto) 1.8, Carroll # (Auto) 0.3, Eos # (Auto) 0.1, Baso # (Auto) 0.0 03/18/21 09:00: Sodium 138, Potassium 3.9, Chloride 103, Carbon Dioxide 25, Anion Gap 13.9, BUN 10, Creatinine 0.60, Estimated Creat Clear 109, Estimated GFR 108, Est GFR ( Amer) 130, Glucose 98, Calcium 9.2, Magnesium 1.7 Result diagrams: 03/18/21 09:00 03/18/21 09:00 Orders (Tests/Meds): ED MEDICATIONS Discontinued Medications Generic Name Dose Route Start Last Admin Trade Name John PRN Reason Stop Dose Admin Hydrocodone Bitart/Acetaminophen 1 tab 03/18/21 11:09 03/18/21 11:13 Hydrocodone 10mg/Apap 325mg Tab PO 03/18/21 11:10 1 tab ONCE ONE Administration Dexamethasone Sodium Phosphate 10 mg 03/18/21 09:26 03/18/21 09:33 Dexamethasone 4mg/Ml 5ml Mdv IV 03/18/21 09:27 10 mg ONCE ONE Administration Haloperidol Lactate 2.5 mg 03/18/21 09:28 03/18/21 09:34 Haloperidol Lactate 5 Mg/Ml Vial IV 03/18/21 09:29 2.5 mg ONCE ONE Administration Lactated Ringer's 1,000 mls @ 999 mls/hr 03/18/21 09:30 03/18/21 09:34 Lactated Ringer's 1000 Ml Bag IV 03/18/21 10:30 999 mls/hr .Q1H1M KIRAN Administration Ketorolac Tromethamine 30 mg 03/18/21 09:26 03/18/21 09:34 Ketorolac 30mg/Ml Vial IV 03/18/21 09:27 30 mg ONCE ONE Administration Medical Decision Narrative: 45-year-old female who presents to the emergency department with complaints of intractable vomiting and headache which onset this morning. Patient has been diagnosed with COVID-19 on , and has not felt well since then. However, she states her vomiting and headache are worse this morning, and that she has been vomiting up blood. She was recently prescribed antiemetics but has been unable t
--- NOTE | 2021-03-18 10:00 | PC.NURSE ---
PT UP TO BATHROOM AMBULATING WITH NO DIFFICULTY.
[2021-03-18 10:02] LABS: Basophils % 0.5 % (0.1-2.0); Eosinophils # 0.1 K/mm3 (0.0-0.4); Eosinophils % 1.8 % (0.1-12.0); Hematocrit 44.5 % (37.0-47.0); Hemoglobin 14.9 g/dL (12.2-16.2); Lymphocytes # 1.8 K/mm3 (0.7-4.5); Lymphocytes % 22.4 % (10-50); Mean Corpuscular HGB Conc 33.6 g/dL (31.8-35.4); Mean Corpuscular Hemoglobin 31.2 pg (27.0-31.2); Mean Corpuscular Volume 93.1 fl (81-99); Mean Platelet Volume 8.9 fl (7.4-10.4); Monocytes # 0.3 K/mm3 (0.1-1.0); Monocytes % 3.7 % (1.7-9.3); Neutrophils # 5.7 K/mm3 (1.8-7.8); Neutrophils % 71.5 % (37.0-80.0); Platelet Count 375 K/mm3 (142-424); Red Blood Count 4.78 M/mm3 (4.20-5.40); White Blood Count 7.9 K/mm3 (4.8-10.8)
[2021-03-18 10:27] LABS: Anion Gap 13.9 mEq/L (5-15); Blood Urea Nitrogen 10 mg/dl (7-17); Calcium 9.2 mg/dl (8.4-10.2); Carbon Dioxide 25 mmol/L (22.0-30.0); Chloride 103 mmol/L (98-107); Creatinine Clearance Estimated 109 mL/min (50-200); Estimated Glomerular Filt Rate 108 ml/min (>60); GFR (African American) 130 ML/MIN (>60); Glucose 98 mg/dl (74-100); Magnesium 1.7 mg/dl (1.6-2.3); Potassium 3.9 mmoL/L (3.5-5.1); Sodium 138 mmol/L (136-145)
--- NOTE | 2021-03-18 12:01 | PC.NURSE ---
PT ATTEMPTING TO FIND RIDE HOME
== END 2021-03-18 12:47 | disposition home or self-care (01) ==
PROVIDERS: Emergency Provider Emergency Medicine
DX: G44.209 Tension-type headache, unspecified, not intractable (principal); U07.1 COVID-19; F41.8 Other specified anxiety disorders; G40.909 Epilepsy, unspecified, not intractable, without status epilepticus; J45.909 Unspecified asthma, uncomplicated; Z87.891 Personal history of nicotine dependence; Z87.442 Personal history of urinary calculi
CPT/HCPCS: 71045; 80048; 83735; 85025; 96365; 96375; 99283

== ENCOUNTER → 2021-03-26 17:49 | Outpatient (CLI) | payer OTHER, SELFPAY ==
[2021-03-26 19:36] LABS: Amphetamine/Metha Screen,Urine Negative ng/ml (<1000)
[2021-03-26 19:37] LABS: Barbiturates Screen,Urine Negative ng/ml (<200); Benzodiazepines Screen,Urine Positive ng/ml (<200)
[2021-03-26 19:38] LABS: Cannabinoid Screen,Urine Negative ng/ml (<50)
[2021-03-26 19:39] LABS: Cocaine Screen,Urine Negative ng/ml (<300); Methadone Screen,Urine Negative ng/ml (<300)
[2021-03-26 19:40] LABS: Opiate Screen,Urine Positive ng/ml (<300); Phencyclidine Screen,Urine Negative ng/ml (<25)
== END ==
PROVIDERS: Visit Provider Emergency Medicine
DX: Z79.899 Other long term (current) drug therapy (principal)
CPT/HCPCS: 80305

== ENCOUNTER → 2021-09-12 15:24 | Outpatient (CLI) | payer OTHER, SELFPAY ==
[2021-09-12 19:16] LABS: Amphetamine/Metha Screen,Urine Negative ng/ml (<1000); Barbiturates Screen,Urine Negative ng/ml (<200)
[2021-09-12 19:17] LABS: Benzodiazepines Screen,Urine Positive ng/ml (<200)
[2021-09-12 19:18] LABS: Cannabinoid Screen,Urine Negative ng/ml (<50); Cocaine Screen,Urine Negative ng/ml (<300)
[2021-09-12 19:19] LABS: Methadone Screen,Urine Negative ng/ml (<300)
[2021-09-12 19:20] LABS: Opiate Screen,Urine Positive ng/ml (<300); Phencyclidine Screen,Urine Negative ng/ml (<25)
== END ==
PROVIDERS: Visit Provider Emergency Medicine
DX: Z79.899 Other long term (current) drug therapy (principal)
CPT/HCPCS: 80305

== ENCOUNTER 2021-10-21 23:41 | Emergency (ER) | payer OTHER, SELFPAY ==
[2021-10-21 23:40] VITALS: BMI 23.0
[2021-10-21 23:44] VITALS: BP 162/95; PULSE 98; RESP 18; TEMP 36.6; O2SAT 98; BMI 26.6
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
[2021-10-22 00:16] LABS: Basophils # 0.1 K/mm3 (0-0.2); Basophils % 1.8 % (0.1-2.0); Eosinophils # 0.1 K/mm3 (0.0-0.4); Eosinophils % 1.7 % (0.1-12.0); Hematocrit 37.1 % (37.0-47.0); Hemoglobin 12.6 g/dL (12.2-16.2); Lymphocytes # 3.3 K/mm3 (0.7-4.5); Lymphocytes % 45.8 % (10-50); Mean Corpuscular Hemoglobin 31.9 pg (27.0-31.2); Mean Corpuscular Volume 93.9 fl (81-99); Mean Platelet Volume 9.8 fl (7.4-10.4); Monocytes # 0.4 K/mm3 (0.1-1.0); Monocytes % 5.8 % (1.7-9.3); Neutrophils # 3.3 K/mm3 (1.8-7.8); Neutrophils % 44.9 % (37.0-80.0); Platelet Count 223 K/mm3 (142-424); Red Blood Count 3.95 M/mm3 (4.20-5.40); Red Cell Distribution Width 13.2 % (11.5-17.5); White Blood Count 7.2 K/mm3 (4.8-10.8)
[2021-10-22 00:27] LABS: Alanine Aminotransferase 26 U/L (12-78); Albumin/Globulin Ratio 1.5 (1.1-1.8); Alkaline Phosphatase 75 U/L (38-126); Anion Gap 8.3 mEq/L (5-15); Aspartate Amino Transferase 34 U/L (14-36); Bilirubin,Total 0.3 mg/dl (0.2-1.3); Blood Urea Nitrogen 14 mg/dl (7-17); Calcium 8.8 mg/dl (8.4-10.2); Carbon Dioxide 26 mmol/L (22.0-30.0); Chloride 107 mmol/L (98-107); Creatinine Clearance Estimated 117 mL/min (50-200); Estimated Glomerular Filt Rate 90 ml/min (>60); GFR (African American) 109 ML/MIN (>60); Globulin 2.7 g/dL (1.3-3.2); Glucose 108 mg/dl (74-100); Potassium 3.3 mmoL/L (3.5-5.1); Sodium 138 mmol/L (136-145); Total Protein,Serum 6.7 g/dl (6.3-8.2)
[2021-10-22 00:30] VITALS: BP 143/87; PULSE 82; O2SAT 98
[2021-10-22 00:32] LABS: Valproic Acid, (Depakene) < 10.0 ug/ml (50-100)
--- NOTE | 2021-10-22 00:46 | PC.NURSE ---
ER speaking with pt
--- NOTE | 2021-10-22 00:56 | PC.NURSE ---
assisted to br with help of outdoor adventure leader.
[2021-10-22 01:22] VITALS: BP 158/97; PULSE 99; RESP 16; TEMP 37.2; O2SAT 99
== END 2021-10-22 01:29 | disposition home or self-care (01) ==
PROVIDERS: Emergency Provider Emergency Medicine; PCP Emergency Medicine
DX: G40.909 Epilepsy, unspecified, not intractable, without status epilepticus (principal); F41.8 Other specified anxiety disorders; Z95.0 Presence of cardiac pacemaker; Z87.891 Personal history of nicotine dependence; G43.709 Chronic migraine without aura, not intractable, without status migrainosus; M54.2 Cervicalgia; Z79.899 Other long term (current) drug therapy
CPT/HCPCS: 71046; 80053; 80164; 85025; 96361; 96374; 99284

== ENCOUNTER 2021-11-15 10:59 | Emergency (ER) | payer OTHER, SELFPAY ==
[2021-11-15 11:01] VITALS: BP 115/81; PULSE 77; RESP 18; TEMP 36.7; O2SAT 98; BMI 23.9
--- NOTE | 2021-11-15 11:10 | PC.NURSE ---
ED MD at
--- NOTE | 2021-11-15 11:13 | HMH.EDSKAF ---
ED Disposition Clinical Impression: Rash and nonspecific skin eruption Disposition: Home, Self-Care Condition on Discharge: Good Instructions: DI for Rash Additional Instructions: follow up PCP if not better Prescriptions: Sulfamethoxazole/Trimethoprim [Bactrim DS tablet] 1 each PO BID #20 tab Transmission Status: Received by [facility] Mupirocin [Bactroban 2% Ointment 22gm tube] 1 applicatio TP TID #22 gm Transmission Status: Received by [facility] Referrals: Omar Hess MD [Primary Care Provider] - - Critical Care Critical Care Time: No Attestation: On 11/15/21, the high probability of a clinically significant, sudden or life threatening deterioration of the following system(s) required my full and direct attention, intervention and personal management. The time I documented below is in addition to time spent performing reported procedures but includes the following listed in this critical care notation. Medical Decision Making - Medical Records Medical records reviewed: Yes: I reviewed the patient's medical records. - Darrius Inquiry Pt receiving controlled substance: No Vital Signs: 11/15/21 11:01 11/15/21 11:22 Temperature 98.1 F 98.1 F Temperature Source Oral Pulse Rate 77 Pulse Rate [Right Radial] 77 Respiratory Rate 18 18 Blood Pressure 115/81 Blood Pressure [Right Arm] 115/81 Blood Pressure Mean [Right Arm] 92 Blood Pressure Source [Right Arm] Automatic Cuff Blood Pressure Position [Right Arm] Sitting 02 Sat by Pulse Oximetry 98 Oxygen Delivery Method Room Air Room Air Skin/Abscess/FB HPI - General Chief complaint: Skin/Abscess/Foreign Body Stated complaint: itchy rash on arms Time Seen by Provider: 11/15/21 11:13 Mode of Arrival: Ambulatory Limitations: No Limitations Description of Symptoms (Recalled from ER Triage Doc. by RN): Pt c/o itchy rash on bilateral upper arms. States that the bumps resemble a bump that started on her nose a few days ago - History of Present Illness HPI narrative: left/right arm rash red/painful/itching, sim to prior in nose Onset (ago): day(s) Location: [facility] Severity: moderate Consistency: constant Relieving factors: none Exacerbating factors: none Context: none Associated symptoms: denies other symptoms Treatments prior to arrival: none - Related Data Home Medications Medication Instructions Recorded Confirmed diazepam 10 mg tablet PO QHS tab 02/17/20 10/24/21 desvenlafaxine succinate 50 mg 50 mg PO DAILY tab 05/22/21 10/24/21 tablet,extended release 24 hr desvenlafaxine succinate 25 mg 25 mg PO DAILY tab 10/16/21 10/24/21 tablet,extended release 24 hr Previous Rx's Medication Instructions Recorded albuterol sulfate 90 mcg/actuation 1 inh INHALATION QID #8 g 09/21/19 aerosol inhaler albuterol sulfate 2.5 mg INHALATION Q6H #180 ml 03/10/21 Promethazine HCl [Phenergan 25mg 25 mg PO TID PRN #20 tab 03/16/21 tab] divalproex 250 mg tablet,delayed 500 mg PO QHS #60 tab 10/10/21 release hydrocodone 10 mg-acetaminophen 1 tab PO QID PRN #120 tab 10/24/21 325 mg tablet Mupirocin [Bactroban 2% Ointment 1 applicatio TP TID #22 gm 11/15/21 22gm tube] Sulfamethoxazole/Trimethoprim 1 each PO BID #20 tab 11/15/21 [Bactrim DS tablet] Allergies Allergy/AdvReac Type Severity Reaction Status Date / Time nitrous oxide Allergy Severe Unknown Verified 10/24/21 13:10 allergy reaction codeine [CODEINE] Allergy Unknown Verified 10/24/21 13:10 fluoxetine [From PROZAC] Allergy Unknown Verified 10/24/21 13:10 ibuprofen [IBUPROFEN] Allergy Unknown Verified 10/24/21 13:10 latex [LATEX] Allergy Unknown Verified 10/24/21 13:10 loratadine [From CLARITIN] Allergy Unknown Verified 10/24/21 13:10 magnesium [MAGNESIUM] Allergy Unknown Verified 10/24/21 13:10 nitrofurantoin Allergy Unknown Verified 10/24/21 13:10 [NITROFURANTOIN] oxycodone [OXYCODONE] Allergy Unkno
[2021-11-15 11:22] VITALS: BP 115/81; PULSE 77; RESP 18; TEMP 36.7; O2SAT 98
--- NOTE | 2021-11-15 11:24 | PC.NURSE ---
TAVON Gauthier at discussing D/C instructions
== END 2021-11-15 11:22 | disposition home or self-care (01) ==
PROVIDERS: Emergency Provider Emergency Medicine; PCP Emergency Medicine
DX: R21 Rash and other nonspecific skin eruption (principal); S16.1XXA Strain of muscle, fascia and tendon at neck level, initial encounter; M19.90 Unspecified osteoarthritis, unspecified site; G43.909 Migraine, unspecified, not intractable, without status migrainosus; G40.909 Epilepsy, unspecified, not intractable, without status epilepticus; F32.A Depression, unspecified; J45.909 Unspecified asthma, uncomplicated; F41.9 Anxiety disorder, unspecified; Z79.1 Long term (current) use of non-steroidal anti-inflammatories (NSAID); Z79.51 Long term (current) use of inhaled steroids; Z79.899 Other long term (current) drug therapy; Z88.5 Allergy status to narcotic agent; Z88.6 Allergy status to analgesic agent; Z88.8 Allergy status to other drugs, medicaments and biological substances; Z91.040 Latex allergy status; Z98.1 Arthrodesis status; Z87.891 Personal history of nicotine dependence; Z82.49 Family history of ischemic heart disease and other diseases of the circulatory system; Z80.9 Family history of malignant neoplasm, unspecified; Z83.3 Family history of diabetes mellitus
CPT/HCPCS: 99283

== ENCOUNTER → 2021-12-20 07:15 | Outpatient (CLI) | payer OTHER, SELFPAY ==
[2021-12-19 17:21] LABS: Microscopic, Urine URINE MICROSCOPIC (MICROSCOPIC)
[2021-12-19 19:39] LABS: Appearance,Urine CLEAR (Clear); Bilirubin,Urine Negative (Negative); Blood, Urine Negative (Negative); Color,Urine YELLOW (Yellow); Glucose,Urine (UA) Negative (Negative); Ketones,Urine Negative (Negative); Leukocyte Esterase,Urine Negative (Negative); Nitrate,Urine Negative (Negative); Protein,Urine Negative (Negative); Specific Gravity, Urine <= 1.005 (1.005-1.030); Urobilinogen,Urine 0.2 EU/dl (0.2)
== END ==
PROVIDERS: PCP Emergency Medicine; Visit Provider Emergency Medicine
DX: R82.90 Unspecified abnormal findings in urine (principal)
CPT/HCPCS: 81001; 87086

== ENCOUNTER 2022-03-06 18:02 | Emergency (ER) | payer OTHER, SELFPAY ==
[2022-03-06 18:10] VITALS: BMI 23.9
[2022-03-06 18:45] VITALS: BP 135/67; PULSE 108; RESP 18; TEMP 36.9; O2SAT 99; BMI 23.0
[2022-03-06 18:52] LABS: Apearance,Urine Clear (Clear); Bilirubin,Urine Negative (Negative); Blood, Urine 2+ (Negative); Color,Urine Yellow (Yellow); Glucose,Urine (UA) Negative (Negative); Ketones,Urine Negative (Negative); PH,Urine 5.5 (5.0-8.5); Protein,Urine 1+ (Negative); Urobilinogen,Urine 0.2 EU/dl (0.2)
[2022-03-06 18:53] LABS: UTC Leukocyte Esterase,Urine 1+ (Negative); UTC Nitrate,Urine Negative (Negative)
[2022-03-06 19:14] VITALS: BP 135/67; PULSE 108; RESP 18; TEMP 36.9; O2SAT 99
--- NOTE | 2022-03-06 19:22 | EXP.UTC ---
Discharge Plan Disposition Patient Disposition: Home, Self-Care Condition: Good Prescriptions Prescriptions: New cefdinir 300 mg capsule 300 mg PO BID Qty: 20 0RF phenazopyridine [Pyridium] 200 mg tablet 200 mg PO Q8H 2 Days Qty: 6 0RF No Action diazepam 10 mg tablet PO QHS Label Comments: TAKE ONE TABLET BY MOUTH EVERY DAY AT BEDTIME MAY CAUSE DROWSINESS desvenlafaxine succinate 25 mg tablet extended release 24 hr 25 mg PO DAILY hydrocodone-acetaminophen 10-325 mg tablet 1 tab PO QID PRN (Reason: pain) Qty: 120 0RF albuterol sulfate [Ventolin HFA] 90 mcg/actuation HFA aerosol inhaler 1 inh INHALATION QID Qty: 8 2RF albuterol sulfate 2.5 mg /3 mL (0.083 %) solution for nebulization 2.5 mg INHALATION Q6H Qty: 180 2RF divalproex 250 mg tablet,delayed release (DR/EC) 500 mg PO QHS Qty: 60 5RF Referrals Follow up/Referrals: Omar Hess MD [Primary Care Provider] - See instructions Activity Restrictions/Add. Instructions Additional Instructions/Restrictions: *Increase fluids. Water not Soda or Tea *Start antibiotic immediately and be sure to take as ordered for the FULL length of time although you should start to see improvement over the next 48 hours *Pyridium as needed Remember this medication will turn your urine . This is normal but it will stain what ever it gets on *You should not use Pyridium for more than 48 hours. If so , follow up with your primary physician to review urine culture and ensure that antibiotic is adequate for infection *Be SURE to follow up anytime for new or worsening symptoms with your family doctor. AND in 48 hours for urine culture results with your family doctor, if you do not have a doctor then you may call back to the [facility] for urine culture results and further treatment. We do recommend that you choose and establish care with a Primary Care Physician. ?AND follow up with them ?in 10-14 days to repeat UA to ensure infection is resolved and blood no longer present *Be sure to let your PCP know that we sent urine cultures from the [facility] so they can follow up to ensure that you area the on the correct antibiotic Call your doctor office and make appointment for 48 hours (2 days from today) ?to follow up and get the results of your urine culture and further treatment Discharge ED Provider: Jojo [place] [facility] [place] General Stated complaint: poss UTi Mode of Arrival: Ambulatory Source of Information: Patient Limitations: No Limitations Time Seen by Provider: 03/06/22 19:23 Description of Symptoms (Recalled from Triage Doc. by RN): PATIENT C/O PRESSURE AND PAIN TO LOWER ABDOMEN HEENT Symptoms (Recalled from RN notes): No Resp Symptoms (Recalled from RN notes): No Skin Symptoms (Recalled from RN notes): No MS Symptoms (Recalled from RN notes): No Functional Status (Recalled from RN notes): WNL History of Present Illness Provider Complaint: Patient states that she feels like she has a UTI States that she has been having pressure like pain and feeling of urgency and frequency like she gets when she gets a UTI States that today it has continued to get worse so she came in to get it checked out before it got too bad Related Data Home Medications Medication Instructions Recorded Confirmed diazepam 10 mg tablet PO QHS 02/17/20 02/12/22 desvenlafaxine succinate 25 mg 25 mg PO DAILY 10/16/21 02/12/22 tablet,extended release 24 hr Previous Rx's Medication Instructions Recorded albuterol sulfate 90 mcg/actuation 1 inh inhalation QID #8 grams 09/21/19 aerosol inhaler (Ventolin HFA) albuterol sulfate 2.5 mg/3 mL 2.5 mg (3 mL) inhalation Q6H #180 03/10/21 (0.083 %) solution for nebulization mL divalproex 250 mg tablet,delayed 500 mg PO QHS #60 tabs 10/10/21 release hydrocodone 10 mg-acetaminophen 1 tab PO QID PRN pain #120 tabs 02/12/22 325 mg tablet cefdinir 300 mg capsule 300 mg PO BID #20 caps 03/06/22 phenazopyridine 200 mg tablet 200 mg PO
== END 2022-03-06 19:45 | disposition home or self-care (01) ==
PROVIDERS: Emergency Provider Nurse Practitioner; PCP Emergency Medicine
DX: R39.15 Urgency of urination (principal)
CPT/HCPCS: 81003; 87086; 87088; 87186; 99212; G0463

== ENCOUNTER 2022-03-16 07:27 | Emergency (ER) | payer OTHER, SELFPAY ==
[2022-03-16 07:28] VITALS: BP 127/71; PULSE 67; RESP 16; TEMP 36.6; O2SAT 98; BMI 23.0
[2022-03-16 07:42] VITALS: BMI 23.0
[2022-03-16 07:48] LABS: Bilirubin,Urine Negative (Negative); Blood, Urine TRACE-I (Negative); Color,Urine YELLOW (Yellow); Glucose,Urine (UA) Negative (Negative); Ketones,Urine TRACE (Negative); Leukocyte Esterase,Urine 2+ (Negative); Microscopic, Urine URINE MICROSCOPIC (MICROSCOPIC); Nitrate,Urine Negative (Negative); Protein,Urine 1+ (Negative); Specific Gravity, Urine >= 1.030 (1.005-1.030); Urobilinogen,Urine 0.2 EU/dl (0.2)
[2022-03-16 07:49] LABS: Appearance,Urine Cloudy (Clear)
--- NOTE | 2022-03-16 07:52 | PC.NURSE ---
pelvic per dr rascon with female nurse present
[2022-03-16 07:59] LABS: Bacteria,Urine 1+ /lpf; Yeast,Urine 1+ /lpf
--- NOTE | 2022-03-16 08:15 | HMH.EDGENADL ---
Discharge Plan Disposition Patient Disposition: Home, Self-Care Prescriptions Prescriptions: New prednisone [prednisone] 20 mg tablet 20 mg PO BID Qty: 10 0RF levofloxacin 500 mg tablet 500 mg PO DAILY Qty: 7 0RF No Action diazepam 10 mg tablet PO QHS Label Comments: TAKE ONE TABLET BY MOUTH EVERY DAY AT BEDTIME MAY CAUSE DROWSINESS desvenlafaxine succinate 25 mg tablet extended release 24 hr 25 mg PO DAILY hydrocodone-acetaminophen 10-325 mg tablet 1 tab PO QID PRN (Reason: pain) Qty: 120 0RF albuterol sulfate [Ventolin HFA] 90 mcg/actuation HFA aerosol inhaler 1 inh INHALATION QID Qty: 8 2RF albuterol sulfate 2.5 mg /3 mL (0.083 %) solution for nebulization 2.5 mg INHALATION Q6H Qty: 180 2RF divalproex 250 mg tablet,delayed release (DR/EC) 500 mg PO QHS Qty: 60 5RF cefdinir 300 mg capsule 300 mg PO BID Qty: 20 0RF phenazopyridine [Pyridium] 200 mg tablet 200 mg PO Q8H 2 Days Qty: 6 0RF Referrals Follow up/Referrals: Omar Hess MD [Primary Care Provider] - See instructions Clinical Impressions Clinical Impression: UTI (urinary tract infection), Allergic reaction caused by a drug, Swelling of labia Instructions Patient Instructions: DI for Urinary Tract Infection (UTI) Discharge ED Provider: Omar Hess General Adult HPI General Chief complaint: PAIN Stated complaint: Vaginal inflammation Time Seen by Provider: 03/16/22 08:00 Mode of Arrival: Ambulatory Source of Information: Patient and Medical Record Limitations: No Limitations Description of Symptoms (Recalled from ER Triage Doc. by RN): to ed per pvt car with c/o vaginal swelling, itching, pain. pt states started on cefdinir several days ago for uti and starting with itching 2 days ago. yesterday used monistat and vagisil woke up this am with pain and swelling. History of Present Illness HPI narrative: after using otc vaginal cream has ext labial swelling and had recent uti - reviewed urine culture Onset (ago): hour(s) Location: genitals Severity: moderate Associated symptoms: denies other symptoms Related Data Home Medications Medication Instructions Recorded Confirmed diazepam 10 mg tablet PO QHS 02/17/20 02/12/22 desvenlafaxine succinate 25 mg 25 mg PO DAILY 10/16/21 02/12/22 tablet,extended release 24 hr Previous Rx's Medication Instructions Recorded albuterol sulfate 90 mcg/actuation 1 inh inhalation QID #8 grams 09/21/19 aerosol inhaler (Ventolin HFA) albuterol sulfate 2.5 mg/3 mL 2.5 mg (3 mL) inhalation Q6H #180 03/10/21 (0.083 %) solution for nebulization mL divalproex 250 mg tablet,delayed 500 mg PO QHS #60 tabs 10/10/21 release hydrocodone 10 mg-acetaminophen 1 tab PO QID PRN pain #120 tabs 02/12/22 325 mg tablet cefdinir 300 mg capsule 300 mg PO BID #20 caps 03/06/22 phenazopyridine 200 mg tablet 200 mg PO Q8H 2 days #6 tabs 03/06/22 (Pyridium) levofloxacin 500 mg tablet 500 mg PO DAILY #7 tabs 03/16/22 prednisone 20 mg tablet 20 mg PO BID #10 tabs 03/16/22 Allergies Allergy/AdvReac Type Severity Reaction Status Date / Time nitrous oxide Allergy Severe Unknown Verified 02/12/22 14:05 allergy reaction codeine [CODEINE] Allergy Unknown Verified 02/12/22 14:05 fluoxetine [From PROZAC] Allergy Unknown Verified 02/12/22 14:05 ibuprofen [IBUPROFEN] Allergy Unknown Verified 02/12/22 14:05 latex [LATEX] Allergy Unknown Verified 02/12/22 14:05 loratadine [From CLARITIN] Allergy Unknown Verified 02/12/22 14:05 magnesium [MAGNESIUM] Allergy Unknown Verified 02/12/22 14:05 nitrofurantoin Allergy Unknown Verified 02/12/22 14:05 [NITROFURANTOIN] oxycodone [OXYCODONE] Allergy Unknown Verified 02/12/22 14:05 risperidone Allergy Unknown Verified 02/12/22 14:05 sumatriptan [SUMATRIPTAN] Allergy Unknown Verified 02/12/22 14:05 tramadol [TRAMADOL] Allergy Unknown Verified 02/12/22 14:05 trazodone [TRAZODONE] Allergy Unknown Alte
--- NOTE | 2022-03-16 08:23 | PC.NURSE ---
DR. ZIMMER AT BEDSIDE DISCUSSING POC WITH PT
[2022-03-16 08:57] VITALS: BP 132/68; PULSE 88; RESP 16; TEMP 36.6; O2SAT 99
== END 2022-03-16 08:58 | disposition home or self-care (01) ==
PROVIDERS: Emergency Provider Emergency Medicine; PCP Emergency Medicine
DX: N39.0 Urinary tract infection, site not specified (principal); T50.905A Adverse effect of unspecified drugs, medicaments and biological substances, initial encounter; N76.89 Other specified inflammation of vagina and vulva; M54.2 Cervicalgia; Z79.51 Long term (current) use of inhaled steroids; Z79.52 Long term (current) use of systemic steroids; Z79.899 Other long term (current) drug therapy; Z88.0 Allergy status to penicillin; Z88.5 Allergy status to narcotic agent; Z88.8 Allergy status to other drugs, medicaments and biological substances
CPT/HCPCS: 81001; 87086; 87210; 99283

== ENCOUNTER 2022-04-05 20:04 | Emergency (ER) | payer OTHER, SELFPAY ==
[2022-04-05 20:14] VITALS: BP 138/87; PULSE 77; RESP 17; TEMP 36.7; O2SAT 97; BMI 23.0
[2022-04-05 20:30] VITALS: BP 133/85; PULSE 72; O2SAT 97
--- NOTE | 2022-04-05 20:49 | CT_ITS ---
PROCEDURE INFORMATION: Exam: CT Cervical Spine Without Contrast Exam date and time: 04/05/2022 8:58 PM Age: 46 years old Clinical indication: Injury or trauma; Other: Dog attack; Blunt trauma; Prior surgery; Surgery date: 6+ months; Surgery type: Neck surgery; Additional info: Neck pain S/P trauma TECHNIQUE: Imaging protocol: Computed tomography of the cervical spine without contrast. Radiation optimization: All CT scans at this facility use at least one of these dose optimization techniques: automated exposure control; mA and/or kV adjustment per patient size (includes targeted exams where dose is matched to clinical indication); or iterative reconstruction. COMPARISON: CT CERVICAL SPINE WO CON 01/20/2020 5:51 PM FINDINGS: Bones/joints: Craniocervical alignment is normal. The occipital condyles are intact. The odontoid is intact. No jumped or perched facets. No fractures. Straightening of cervical lordosis which may be positional or related to an element of muscular strain/spasm. Cervical alignment is otherwise well maintained. No blastic or lytic lesions. Prior ACDF C5-C6 with solid bony union and removal of prior anterior fixation hardware at this level. Prior ACDF at C6-C7 with anterior plate and screws demonstrating no evidence of hardware breakage, displacement, loosening, or infection. Interbody fusion elements also present at this level although no solid bony union is identified across the disc space at C6-C7. No compressive soft disc protrusion or extrusion is evident by CT. Minor 1 mm posterior spurring C3-C4. No canal stenosis. No neuroforaminal stenosis. Lungs: Mild bilateral apical pleural/parenchymal scarring. Partially calcified granuloma in the posterior left apex measuring 3 mm. Thyroid: The visualized thyroid gland is unremarkable. Soft tissues: Paraspinous soft tissues are unremarkable without significant soft tissue swelling or soft tissue hematoma. IMPRESSION: 1. No evidence of fracture or acute traumatic subluxation. 2. Straightening of cervical lordosis which may be positional or related to an element of muscular strain/spasm. Cervical alignment is otherwise well maintained. 3. Prior interbody fusion at C5-C6 with solid bony union. Prior ACDF at C6-C7 as well with intact anterior fixation hardware hardware although there is no solid bony union across the disc space at this point.
--- NOTE | 2022-04-05 20:49 | XR_ITS ---
PROCEDURE INFORMATION: Exam: XR Left Forearm Exam date and time: 04/05/2022 9:16 PM Age: 46 years old Clinical indication: Injury or trauma; Other: Dog attack; Blunt trauma (contusions or hematomas); Arm, lower; Left; Additional info: Left wrist pain, dog attack TECHNIQUE: Imaging protocol: Radiologic exam of the Left forearm. Views: 2 views. COMPARISON: CR XR WRIST LT MIN 3V 10/18/2020 10:02 AM FINDINGS: Bones/joints: No fractures. Proximal and distal radial ulnar alignment is normal. Elbow joint alignment is normal. Carpal relationships are normal. No blastic or lytic lesions. No gross wrist joint effusion. No articular erosions. Soft tissues: No periostitis or osteolysis. No gross soft tissue abnormalities. No radiopaque foreign bodies are identified. Other findings: Normal mineralization. IMPRESSION: No acute findings.
--- NOTE | 2022-04-05 20:49 | XR_ITS ---
PROCEDURE INFORMATION: Exam: XR Pelvis Exam date and time: 04/05/2022 9:28 PM Age: 46 years old Clinical indication: Injury or trauma; Other: Dog ttack; Blunt trauma (contusions or hematomas); Left; Hip and sacrum and coccyx; Additional info: Left hip pain, dog attack TECHNIQUE: Imaging protocol: Radiologic exam of the pelvis. Views: 1 or 2 view. COMPARISON: CT ABDOMEN PELVIS WO CON 03/16/2021 6:28 PM FINDINGS: Bones/joints: No fracture. Hip joints are well aligned. Hip joint spaces and articular surfaces are grossly well-maintained. No blastic or lytic lesions. The SI joints are unremarkable. The pubic symphysis is unremarkable. Soft tissues: No gross soft tissue abnormalities. Vasculature: Small intrapelvic phleboliths bilaterally. Other findings: No gross sacrococcygeal abnormalities. IMPRESSION: No acute findings.
--- NOTE | 2022-04-05 20:49 | XR_ITS ---
PROCEDURE INFORMATION: Exam: XR Left Hand Exam date and time: 04/05/2022 9:19 PM Age: 46 years old Clinical indication: Injury or trauma; Other: Dog attack; Blunt trauma (contusions or hematomas); Hand; Left; Additional info: Pain dog attack TECHNIQUE: Imaging protocol: Radiologic exam of the Left hand. Views: 1 or 2 views. COMPARISON: CR Wrist L 04/05/2022 9:18 PM FINDINGS: Bones/joints: No fractures. Carpal relationships are normal. Distal radioulnar alignment is normal. No blastic or lytic lesions. No articular erosive changes. Soft tissues: No periostitis or osteolysis. No gross soft tissue abnormalities. No radiopaque foreign bodies. IMPRESSION: No acute findings.
--- NOTE | 2022-04-05 20:49 | XR_ITS ---
PROCEDURE INFORMATION: Exam: XR Chest Exam date and time: 04/05/2022 9:05 PM Age: 46 years old Clinical indication: Injury or trauma; Other: Dog attack; Blunt trauma (contusions or hematomas); Additional info: Trauma, dog attack TECHNIQUE: Imaging protocol: Radiologic exam of the chest. Views: 1 view. COMPARISON: CT ABDOMEN PELVIS WO CON 03/16/2021 6:28 PM FINDINGS: Lungs: Normal pulmonary expansion. Pulmonary vasculature grossly normal. No gross pulmonary infiltrates or edema pattern. Pleural spaces: No pleural effusion. No pneumothorax. Heart/Mediastinum: Heart size normal. No tracheal/mediastinal shift. Bones/joints: Cervical fusion hardware noted without gross hardware complication. No acute osseous abnormalities are identified. IMPRESSION: No acute thoracic process.
--- NOTE | 2022-04-05 20:49 | XR_ITS ---
PROCEDURE INFORMATION: Exam: XR Left Elbow Exam date and time: 04/05/2022 9:15 PM Age: 46 years old Clinical indication: Injury or trauma; Other: Dog attack; Blunt trauma (contusions or hematomas); Elbow; Left; Additional info: Pain S/P fall, left arm pain, dog attack TECHNIQUE: Imaging protocol: Radiologic exam of the Left elbow. Views: 3 or more views. COMPARISON: CR XR ELBOW LT MIN 3V 10/18/2020 10:02 AM FINDINGS: Bones/joints: No fractures. No blastic or lytic lesions. Radiocapitellar alignment and ulnotrochlear alignment are normal. Proximal radioulnar alignment is normal. No gross joint effusion. Soft tissues: No periostitis or osteolysis. Question soft tissue swelling in the proximal forearm. No radiopaque foreign bodies. IMPRESSION: 1. No osseous abnormalities. 2. Question soft tissue swelling in the proximal forearm. No foreign body.
--- NOTE | 2022-04-05 20:49 | XR_ITS ---
PROCEDURE INFORMATION: Exam: XR Left Knee Exam date and time: 04/05/2022 9:30 PM Age: 46 years old Clinical indication: Injury or trauma; Other: Dog attack; Blunt trauma; Knee; Left; Additional info: Pain, dog attack, /fall TECHNIQUE: Imaging protocol: Radiologic exam of the Left knee. Views: 3 views. COMPARISON: US CA venous doppler LE LT 01/04/2019 4:00 PM FINDINGS: Bones/joints: No fracture. Normal alignment. No blastic or lytic lesions. No significant joint effusion is present. Joint spaces are well-maintained. Soft tissues: No periostitis or osteolysis. No gross soft tissue abnormalities. No foreign bodies. IMPRESSION: No acute findings.
--- NOTE | 2022-04-05 20:49 | XR_ITS ---
PROCEDURE INFORMATION: Exam: XR Left Humerus Exam date and time: 04/05/2022 9:10 PM Age: 46 years old Clinical indication: Injury or trauma; Other: Dog attack; Blunt trauma (contusions or hematomas); Arm, upper; Left; Additional info: Fall/trauma, dog attack, left arm pain TECHNIQUE: Imaging protocol: Radiologic exam of the Left humerus. Views: 2 or more views. COMPARISON: CR Shoulder L 04/05/2022 9:07 PM FINDINGS: Bones/joints: No fractures. No blastic or lytic lesions. Glenohumeral alignment and elbow alignment are normal. A.c. joint alignment is normal. Visualized ribs appear intact. Lungs: Visualized lung macias are clear. Pleural space: No gross pneumothorax or gross pleural effusion in the visualized portions of the chest. Soft tissues: No periostitis or osteolysis. Question soft tissue swelling in the proximal forearm. No radiopaque foreign body. IMPRESSION: 1. No osseous abnormalities. 2. Question soft tissue swelling in the proximal forearm. No foreign body.
--- NOTE | 2022-04-05 20:49 | XR_ITS ---
PROCEDURE INFORMATION: Exam: XR Left Wrist Exam date and time: 04/05/2022 9:18 PM Age: 46 years old Clinical indication: Injury or trauma; Other: Dog attack; Blunt trauma (contusions or hematomas); Wrist; Left; Additional info: Pain left wrist, dog attack TECHNIQUE: Imaging protocol: Radiologic exam of the Left wrist. Views: 1 or 2 views. COMPARISON: CR XR WRIST LT MIN 3V 10/18/2020 10:02 AM FINDINGS: Bones/joints: No fractures. Carpal relationships are normal. Distal radioulnar alignment is normal. No blastic or lytic lesions. No gross erosive changes. Soft tissues: No periostitis or osteolysis. No gross soft tissue abnormalities. No radiopaque foreign bodies. IMPRESSION: No acute findings.
--- NOTE | 2022-04-05 20:49 | XR_ITS ---
PROCEDURE INFORMATION: Exam: XR Left Shoulder Exam date and time: 04/05/2022 9:07 PM Age: 46 years old Clinical indication: Injury or trauma; Other: Dog attack; Blunt trauma (contusions or hematomas); Shoulder; Left; Additional info: Left shoulder pain, dog attack TECHNIQUE: Imaging protocol: Radiologic exam of the Left shoulder. Views: 2 or more views. COMPARISON: CR Chest 04/05/2022 9:05 PM FINDINGS: Bones/joints: Cervical fusion hardware noted without gross hardware complication. No fractures. Glenohumeral alignment is normal. A.C. joint alignment is normal. No blastic or lytic lesions. Adjacent ribs are intact. Lungs: Visualized lung parenchyma is unremarkable. Pleural space: No visible pleural effusion or pneumothorax. Soft tissues: No gross soft tissue abnormalities. IMPRESSION: No acute findings.
--- NOTE | 2022-04-05 20:51 | HMH.EDGENADL ---
Discharge Plan Disposition Patient Disposition: Home, Self-Care Condition: Good Chief Complaint: Fall Prescriptions Prescriptions: No Action diazepam 10 mg tablet 1 mg PO QHS Label Comments: TAKE ONE TABLET BY MOUTH EVERY DAY AT BEDTIME MAY CAUSE DROWSINESS desvenlafaxine succinate 25 mg tablet extended release 24 hr 25 mg PO DAILY hydrocodone-acetaminophen 10-325 mg tablet 1 tab PO QID PRN (Reason: pain) Qty: 120 0RF divalproex 250 mg tablet,delayed release (DR/EC) 500 mg PO QHS Referrals Follow up/Referrals: Omar Hess MD [Primary Care Provider] - See instructions Activity Restrictions/Add. Instructions Additional Instructions/Restrictions: Please continue supportive care at home with your home pain medications and you may add naproxen. If your condition worsens or any other concerns arise, please return to the emergency department for reassessment. Clinical Impressions Clinical Impression: Fall, Arm pain, left, Acute pain of left knee Instructions Patient Instructions: DI for Chronic Pain -- Adult Discharge ED Provider: Aspen Antoine General Adult HPI General Chief complaint: Fall Stated complaint: [id number] dog attack injured L Arm L knee neck Time Seen by Provider: 04/05/22 20:23 Mode of Arrival: Ambulatory Source of Information: Patient Limitations: No Limitations Description of Symptoms (Recalled from ER Triage Doc. by RN): 46 YO FEMALE PRESENTS WITH CC OF PAIN AFTER FALL . 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 C/O'S OF SEVERE PAIN IN HER LUE, SLIGHT BRUISING AND 2 ABRASIONS APPARENT TO FOREARM AND ELBOW; COMPLAINS OF PAIN LEFT/HIP; History of Present Illness HPI narrative: Patient is a 46-year-old female with past medical history significant of chronic cervical neck pain presenting with a chief complaint of acute on chronic neck pain, left shoulder pain, left elbow pain, left wrist pain and left knee pain after a fall. Patient fell from standing after she was tripped by her dogs during a dog fight. Denies getting bit. She believes she hit her frontal forehead but did not lose consciousness. Currently has only mild headache. No vision changes, nausea or vomiting. No difficulty breathing, chest pain, abdominal pain. Patient is ambulatory. Does not take blood thinners. Related Data Home Medications Medication Instructions Recorded Confirmed diazepam 10 mg tablet 1 mg PO QHS Anxiety 02/17/20 04/05/22 desvenlafaxine succinate 25 mg 25 mg PO DAILY UNK 10/16/21 04/05/22 tablet,extended release 24 hr divalproex 250 mg tablet,delayed 500 mg PO QHS SEIZURE 04/05/22 04/05/22 release Previous Rx's Medication Instructions Recorded hydrocodone 10 mg-acetaminophen 1 tab PO QID PRN pain #120 tabs 02/12/22 325 mg tablet Allergies Allergy/AdvReac Type Severity Reaction Status Date / Time nitrous oxide Allergy Severe Unknown Verified 02/12/22 14:05 allergy reaction codeine [CODEINE] Allergy Unknown Verified 02/12/22 14:05 fluoxetine [From PROZAC] Allergy Unknown Verified 02/12/22 14:05 ibuprofen [IBUPROFEN] Allergy Unknown Verified 02/12/22 14:05 latex [LATEX] Allergy Unknown Verified 02/12/22 14:05 loratadine [From CLARITIN] Allergy Unknown Verified 02/12/22 14:05 magnesium [MAGNESIUM] Allergy Unknown Verified 02/12/22 14:05 nitrofurantoin Allergy Unknown Verified 02/12/22 14:05 [NITROFURANTOIN] oxycodone [OXYCODONE] Allergy Unknown Verified 02/12/22 14:05 risperidone Allergy Unknown Verified 02/12/22 14:05 sumatriptan [SUMATRIPTAN] Allergy Unknown Verified 02/12/22 14:05 tramadol [TRAMADOL] Allergy Unknown Verified 02/12/22 14:05 trazodone [TRAZODONE] Allergy Unknown Altered Verified 02/12/22 14:05 Sense of Taste duloxetine Allergy Verified 02/12/22 14:05 metronidazole [From Flagyl] Allergy Hallucinati Verified 02/12/22 14:05 ons [facility]
--- NOTE | 2022-04-05 22:28 | PC.NURSE ---
VO received to change Toradol to IM and not IV route. OK to keep at same dose of 15mg.
[2022-04-05 22:31] VITALS: BP 153/105; PULSE 67; O2SAT 100
--- NOTE | 2022-04-05 22:31 | PC.NURSE ---
VO received to change Toradol to IM and not IV route. OK to keep at same dose of 30mg.
[2022-04-05 23:00] VITALS: BP 156/86; PULSE 66; O2SAT 100
[2022-04-05 23:34] VITALS: BP 152/86; PULSE 75; RESP 17; TEMP 36.8; O2SAT 98
== END 2022-04-05 23:54 | disposition home or self-care (01) ==
PROVIDERS: Emergency Provider Emergency Medicine; PCP Emergency Medicine
DX: M79.602 Pain in left arm (principal); M25.562 Pain in left knee; W18.39XA Other fall on same level, initial encounter; Y93.K9 Activity, other involving animal care; Z79.899 Other long term (current) drug therapy
CPT/HCPCS: 71045; 72125; 72170; 73030; 73060; 73080; 73090; 73100; 73120; 73562; 96372; 99285

== ENCOUNTER → 2022-04-10 14:00 | Outpatient (CLI) | payer OTHER, SELFPAY ==
[2022-04-10 19:10] LABS: Amphetamine/Metha Screen,Urine Negative ng/ml (<1000)
[2022-04-10 19:11] LABS: Barbiturates Screen,Urine Negative ng/ml (<200); Benzodiazepines Screen,Urine Positive ng/ml (<200)
[2022-04-10 19:12] LABS: Cannabinoid Screen,Urine Negative ng/ml (<50)
[2022-04-10 19:13] LABS: Cocaine Screen,Urine Negative ng/ml (<300); Methadone Screen,Urine Negative ng/ml (<300)
[2022-04-10 19:14] LABS: Opiate Screen,Urine Positive ng/ml (<300)
[2022-04-10 19:15] LABS: Phencyclidine Screen,Urine Negative ng/ml (<25)
== END ==
PROVIDERS: PCP Emergency Medicine; Visit Provider Emergency Medicine
DX: Z79.899 Other long term (current) drug therapy (principal)
CPT/HCPCS: 80305

== ENCOUNTER → 2022-08-06 23:59 | Outpatient (CLI) | payer OTHER, SELFPAY ==
[2022-08-08 20:12] LABS: Amphetamine/Metha Screen,Urine Negative ng/ml (<1000); Barbiturates Screen,Urine Negative ng/ml (<200); Benzodiazepines Screen,Urine Positive ng/ml (<200); Cannabinoid Screen,Urine Negative ng/ml (<50); Cocaine Screen,Urine Negative ng/ml (<300); Methadone Screen,Urine Negative ng/ml (<300); Opiate Screen,Urine Positive ng/ml (<300); Phencyclidine Screen,Urine Negative ng/ml (<25)
== END ==
PROVIDERS: PCP Emergency Medicine; Visit Provider Emergency Medicine
DX: Z79.899 Other long term (current) drug therapy (principal)
CPT/HCPCS: 80305

== ENCOUNTER → 2022-09-30 18:09 | Outpatient (CLI) | payer OTHER, SELFPAY ==
[2022-09-30 19:50] LABS: Phencyclidine Screen,Urine Negative ng/ml (<25)
[2022-09-30 20:08] LABS: Amphetamine/Metha Screen,Urine Negative ng/ml (<1000)
[2022-09-30 20:09] LABS: Barbiturates Screen,Urine Negative ng/ml (<200)
[2022-09-30 20:10] LABS: Benzodiazepines Screen,Urine Positive ng/ml (<200)
[2022-09-30 20:11] LABS: Cannabinoid Screen,Urine Negative ng/ml (<50); Cocaine Screen,Urine Negative ng/ml (<300)
[2022-09-30 20:12] LABS: Methadone Screen,Urine Negative ng/ml (<300)
[2022-09-30 20:13] LABS: Opiate Screen,Urine Positive ng/ml (<300)
== END ==
PROVIDERS: PCP Emergency Medicine; Visit Provider Emergency Medicine
DX: M54.12 Radiculopathy, cervical region (principal); N39.0 Urinary tract infection, site not specified
CPT/HCPCS: 80305; 87086

== ENCOUNTER → 2022-10-04 13:19 | Outpatient (CLI) | payer OTHER, SELFPAY ==
--- NOTE | 2022-10-04 13:19 | MM_ITS ---
PROCEDURE INFORMATION: Exam: MG Bilateral Screening 3D Mammography Exam date and time: 10/04/2022 1:17 PM Age: 47 years old Clinical indication: Screening. No family history of breast cancer. TECHNIQUE: Imaging protocol: Bilateral Screening tomosynthesis and 2D mammography including computer-aided detection (CAD) when performed. COMPARISON: 1. MG MM DIG SCREENING MAMM BI W/CAD 01/26/2019 4:18 PM 2. MG SCBI MM Dig screening mamm BI w/CAD 09/03/2017 4:21 PM 3. MG DMSB DIG MAMM-SCREEN ROMAINE 11/07/2015 4:47 PM 4. BREASTLT US breast LT complete 10/10/2017 11:18 AM FINDINGS: MAMMOGRAPHY: Breast composition: The breasts are heterogeneously dense, which may obscure small masses. Mass: 2 adjacent masses in the left upper inner quadrant, middle 3rd - the larger mass is slightly lobulated and is slightly larger than 01/26/2019 now measuring up to 1.8 cm - these were demonstrated to be cystic on sonography from 02/08/2019. Architectural distortion: None. Calcifications: No suspicious calcifications. Asymmetric density: None. Skin thickening: None. Axillary adenopathy: None. IMPRESSION: Questionably slightly larger mass in the in the left upper inner quadrant, shown to be cystic on sonography 02/08/2019. Suggest adding annual screening sonography when patient returns for annual mammography, unless otherwise clinically indicated. ASSESSMENT: BI-RADS Category 2: Benign
== END ==
PROVIDERS: PCP Emergency Medicine; Visit Provider Emergency Medicine
DX: Z12.31 Encounter for screening mammogram for malignant neoplasm of breast (principal)
CPT/HCPCS: 77063; 77067

== ENCOUNTER → 2023-01-21 23:39 | Outpatient (CLI) | payer OTHER, SELFPAY ==
[2023-01-21 19:52] LABS: Amphetamine/Metha Screen,Urine Negative ng/ml (<1000)
[2023-01-21 19:53] LABS: Barbiturates Screen,Urine Negative ng/ml (<200); Benzodiazepines Screen,Urine Positive ng/ml (<200)
[2023-01-21 19:54] LABS: Cannabinoid Screen,Urine Negative ng/ml (<50); Cocaine Screen,Urine Negative ng/ml (<300)
[2023-01-21 19:56] LABS: Methadone Screen,Urine Negative ng/ml (<300); Opiate Screen,Urine Positive ng/ml (<300)
[2023-01-21 19:57] LABS: Phencyclidine Screen,Urine Negative ng/ml (<25)
== END ==
PROVIDERS: PCP Emergency Medicine; Visit Provider Emergency Medicine
DX: F41.9 Anxiety disorder, unspecified (principal)
CPT/HCPCS: 80305

== ENCOUNTER 2023-02-26 18:27 | Emergency (ER) | payer OTHER, SELFPAY ==
[2023-02-26 18:28] VITALS: BP 140/77; PULSE 78; RESP 18; O2SAT 100; BMI 23.7
[2023-02-26 19:42] VITALS: BP 120/67; PULSE 81; RESP 16; TEMP 36.8; O2SAT 100
--- NOTE | 2023-02-26 21:04 | CT_ITS ---
PROCEDURE INFORMATION: Exam: CT Head Without Contrast Exam date and time: 02/26/2023 9:42 PM Age: 47 years old Clinical indication: Pain; Headache; Additional info: Acute onset severe headache TECHNIQUE: Imaging protocol: Computed tomography of the head without contrast. Radiation optimization: All CT scans at this facility use at least one of these dose optimization techniques: automated exposure control; mA and/or kV adjustment per patient size (includes targeted exams where dose is matched to clinical indication); or iterative reconstruction. REPORTING DATA: Count of CT and Cardiac NM exams in prior 12 months: This patient has received [address] and 0 known cardiac nuclear medicine studies in the 12 months prior to the current study. COMPARISON: CT HEAD/BRAIN WO CON 04/03/2020 4:17 PM FINDINGS: Brain: There are calcifications of the pineal gland. There is calcification of the falx cerebrum. No evidence for acute intracranial hemorrhage, midline shift, or mass effect. No convincing evidence for acute transcortical infarct. Cerebral ventricles: There are calcifications of the choroid plexus. Paranasal sinuses: Visualized sinuses are unremarkable. No fluid levels. Mastoid air cells: Visualized mastoid air cells are well aerated. Bones/joints: Unremarkable. No acute fracture. Soft tissues: Unremarkable. IMPRESSION: No evidence for acute intracranial hemorrhage, midline shift, or mass effect. No convincing evidence for acute transcortical infarct.
--- NOTE | 2023-02-26 21:07 | HMH.EDGENADL ---
Discharge Plan Disposition Patient Disposition: Home, Self-Care Condition: Good Prescriptions Prescriptions: New meclizine 25 mg tablet 25 mg PO DAILY Qty: 30 0RF Discontinued meclizine 25 mg tablet 25 mg PO BID Qty: 10 0RF No Action diazepam 10 mg tablet 1 mg PO QHS Patient Comments: TAKE ONE TABLET BY MOUTH EVERY DAY AT BEDTIME MAY CAUSE DROWSINESS desvenlafaxine succinate 50 mg tablet extended release 24 hr 50 mg PO DAILY hydrocodone-acetaminophen 10-325 mg tablet 1 tab PO QID PRN (Reason: pain) Qty: 120 0RF GaviLyte-C 240-22.72-6.72 -5.84 gram recon soln 240 ml PO Q10M Qty: 4000 0RF Rx Instructions: until fecal effluent is clear Follow mailed instructions divalproex 250 mg tablet,delayed release (DR/EC) See Rx Instructions .ROUTE .COMPLEX Qty: 60 3RF Dose Instruction: TAKE TWO TABLETS BY MOUTH EVERY DAY AT BEDTIME FOR seizures Rx Instructions: TAKE TWO TABLETS BY MOUTH EVERY DAY AT BEDTIME FOR seizures Referrals Follow up/Referrals: Omar Hess MD [Primary Care Provider] - See instructions Clinical Impressions Clinical Impression: Headache, migraine Qualifiers: Migraine type: with aura Status migrainosus presence: without status migrainosus Intractability: not intractable Qualified Code(s): G43.109 - Migraine with aura, not intractable, without status migrainosus Discharge ED Provider: Joselito Rodrigez General Adult HPI General Chief complaint: Headache Stated complaint: dizzy, h/a, seziure yesterday Time Seen by Provider: 02/26/23 21:03 Mode of Arrival: Wheelchair Source of Information: Patient Limitations: No Limitations Description of Symptoms (Recalled from ER Triage Doc. by RN): Patient reports she had seizure yesterday and has had a migraine all day today. Patient reports sensitivity to light and bilateral ear pain. Patient reports she has had dizziness for the last couple days. History of Present Illness HPI narrative: Patient presents for evaluation of frontal headache consistent with known history of migraines, gradual in onset starting today, possibly precipitated by generalized tonic-clonic seizure in the setting of known history of seizure disorder yesterday with no associated head trauma, no fevers or chills or nuchal rigidity or visual complaints at this time outside of photophobia consistent with prior migraines. Previous therapies include home prescription medications no improvement of symptoms. Patient denies any weakness or numbness. Related Data Home Medications Medication Instructions Recorded Confirmed diazepam 10 mg tablet 1 mg PO QHS Anxiety 02/17/20 01/21/23 desvenlafaxine succinate 50 mg 50 mg PO DAILY 09/30/22 01/21/23 tablet,extended release 24 hr Previous Rx's Medication Instructions Recorded peg 3350 240 gram-electrolytes 240 ml PO Q10M #4,000 mL 11/11/22 22.72 gram-6.72 g-5.84 g powdr for soln (Gavilyte-C) divalproex 250 mg tablet,delayed See Rx Instructions .Route 12/23/22 release .COMPLEX #60 tabs hydrocodone 10 mg-acetaminophen 1 tab PO QID PRN pain #120 tabs 01/21/23 325 mg tablet meclizine 25 mg tablet 25 mg PO DAILY #30 tabs 02/26/23 Allergies Allergy/AdvReac Type Severity Reaction Status Date / Time nitrous oxide Allergy Severe Unknown Verified 01/21/23 15:47 allergy reaction codeine [CODEINE] Allergy Unknown Verified 01/21/23 15:47 fluoxetine [From PROZAC] Allergy Unknown Verified 01/21/23 15:47 ibuprofen [IBUPROFEN] Allergy Unknown Verified 01/21/23 15:47 latex [LATEX] Allergy Unknown Verified 01/21/23 15:47 loratadine [From CLARITIN] Allergy Unknown Verified 01/21/23 15:47 magnesium [MAGNESIUM] Allergy Unknown Verified 01/21/23 15:47 nitrofurantoin Allergy Unknown Verified 01/21/23 15:47 [NITROFURANTOIN] oxycodone [OXYCODONE] Allergy Unknown Verified 01/21/23 15:47 risperidone Allergy Unknown Verified 01/21/23 15:47 sumatriptan [SUMATRIPTAN] All
[2023-02-26 21:21] LABS: Basophils # 0.1 K/mm3 (0-0.2); Basophils % 0.7 % (0.1-2.0); Eosinophils # 0.3 K/mm3 (0.0-0.4); Hematocrit 43.6 % (37.0-47.0); Hemoglobin 14.3 g/dL (12.2-16.2); Lymphocytes # 3.5 K/mm3 (0.7-4.5); Lymphocytes % 49.2 % (10-50); Mean Corpuscular HGB Conc 32.9 g/dL (31.8-35.4); Mean Corpuscular Hemoglobin 30.8 pg (27.0-31.2); Mean Corpuscular Volume 93.9 fl (81-99); Mean Platelet Volume 8.3 fl (7.4-10.4); Monocytes # 0.4 K/mm3 (0.1-1.0); Monocytes % 5.4 % (1.7-9.3); Neutrophils # 2.9 K/mm3 (1.8-7.8); Neutrophils % 40.7 % (37.0-80.0); Platelet Count 298 K/mm3 (142-424); Red Blood Count 4.65 M/mm3 (4.20-5.40); White Blood Count 7.1 K/mm3 (4.8-10.8)
[2023-02-26 21:25] LABS: Alanine Aminotransferase 23 U/L (12-78); Albumin Level 4.4 g/dl (3.5-5.0); Albumin/Globulin Ratio 1.3 (1.1-1.8); Alkaline Phosphatase 70 U/L (38-126); Anion Gap 13.3 mEq/L (5-15); Aspartate Amino Transferase 30 U/L (14-36); Bilirubin,Total 0.2 mg/dl (0.2-1.3); Blood Urea Nitrogen 9 mg/dl (7-17); Carbon Dioxide 30 mmol/L (22.0-30.0); Chloride 100 mmol/L (98-107); Creatinine Clearance Estimated 83 mL/min (50-200); Estimated Glomerular Filt Rate 77 ml/min (>60); GFR (African American) 93 ML/MIN (>60); Globulin 3.5 g/dL (1.3-3.2); Glucose 86 mg/dl (74-100); Potassium 4.3 mmoL/L (3.5-5.1); Sodium 139 mmol/L (136-145); Total Protein,Serum 7.9 g/dl (6.3-8.2)
[2023-02-26 21:34] LABS: HCG Qualitative, Serum Negative (Negative)
--- NOTE | 2023-02-26 21:42 | PC.NURSE ---
pt is resting in the hallway bed awaiting to go to ct scan and result of covid swab, pt has been medicated and vitals are wnl. pt updated and offered a warm blanket
[2023-02-26 21:48] LABS: Coronavirus 19, PCR Not Detected (NotDetected); Influenza A, PCR Not Detected (NotDetected); Influenza B, PCR Not Detected (NotDetected)
--- NOTE | 2023-02-26 21:51 | PC.NURSE ---
returned from ct scan
[2023-02-26 22:21] VITALS: BP 122/41; PULSE 64; RESP 18; O2SAT 99
[2023-02-26 22:30] VITALS: BP 121/68; PULSE 62; RESP 20; O2SAT 99
--- NOTE | 2023-02-26 22:30 | PC.NURSE ---
pt placed in bed 7 still awaiting covid swab results and ct scan results
--- NOTE | 2023-02-26 22:37 | PC.NURSE ---
pt is resting stating headache is better and is more at a 5/10, pt is stil awaiting covid swab that was received by lab at [id number]
[2023-02-26 23:03] VITALS: BP 114/61; PULSE 71; RESP 16; TEMP 36.7; O2SAT 95
[2023-02-26 23:06] VITALS: BP 114/61; PULSE 66; RESP 20; O2SAT 97
== END 2023-02-26 23:13 | disposition home or self-care (01) ==
PROVIDERS: Emergency Provider Emergency Medicine; PCP Emergency Medicine
DX: G43.109 Migraine with aura, not intractable, without status migrainosus (principal); G40.909 Epilepsy, unspecified, not intractable, without status epilepticus; F41.9 Anxiety disorder, unspecified; F32.A Depression, unspecified; Z87.891 Personal history of nicotine dependence
CPT/HCPCS: 70450; 80053; 84703; 85025; 87636; 96361; 96372; 96374; 99285

== ENCOUNTER → 2023-03-19 11:00 | Outpatient (CLI) | payer OTHER, SELFPAY ==
[2023-03-19 20:02] LABS: Basophils % 0.7 % (0.1-2.0); Eosinophils # 0.2 K/mm3 (0.0-0.4); Eosinophils % 3.3 % (0.1-12.0); Hematocrit 39.9 % (37.0-47.0); Lymphocytes # 2.7 K/mm3 (0.7-4.5); Lymphocytes % 41.9 % (10-50); Mean Corpuscular HGB Conc 32.6 g/dL (31.8-35.4); Mean Corpuscular Hemoglobin 30.3 pg (27.0-31.2); Mean Corpuscular Volume 93.2 fl (81-99); Mean Platelet Volume 8.9 fl (7.4-10.4); Monocytes # 0.4 K/mm3 (0.1-1.0); Monocytes % 5.8 % (1.7-9.3); Neutrophils # 3.1 K/mm3 (1.8-7.8); Neutrophils % 48.2 % (37.0-80.0); Platelet Count 279 K/mm3 (142-424); Red Blood Count 4.28 M/mm3 (4.20-5.40); White Blood Count 6.5 K/mm3 (4.8-10.8)
[2023-03-19 21:26] LABS: Iron 101 ug/dL (37-170)
[2023-03-19 21:48] LABS: Total Iron Binding Capacity 298 ug/dL (265-497)
== END ==
PROVIDERS: PCP Emergency Medicine; Visit Provider Emergency Medicine
DX: R53.83 Other fatigue (principal); R56.9 Unspecified convulsions; G44.209 Tension-type headache, unspecified, not intractable
CPT/HCPCS: 83540; 83550; 85025

== ENCOUNTER → 2023-04-03 12:34 | Outpatient (CLI) | payer OTHER, SELFPAY ==
[2023-04-03 14:34] LABS: Basophils % 0.6 % (0.1-2.0); Eosinophils # 0.2 K/mm3 (0.0-0.4); Eosinophils % 2.6 % (0.1-12.0); Hematocrit 43.4 % (37.0-47.0); Hemoglobin 14.3 g/dL (12.2-16.2); Lymphocytes # 3.1 K/mm3 (0.7-4.5); Lymphocytes % 44.9 % (10-50); Mean Corpuscular HGB Conc 32.9 g/dL (31.8-35.4); Mean Corpuscular Hemoglobin 31.1 pg (27.0-31.2); Mean Corpuscular Volume 94.6 fl (81-99); Mean Platelet Volume 9.4 fl (7.4-10.4); Monocytes # 0.3 K/mm3 (0.1-1.0); Monocytes % 4.6 % (1.7-9.3); Neutrophils # 3.3 K/mm3 (1.8-7.8); Neutrophils % 47.4 % (37.0-80.0); Platelet Count 289 K/mm3 (142-424); Red Blood Count 4.59 M/mm3 (4.20-5.40); Red Cell Distribution Width 12.9 % (11.5-17.5); White Blood Count 6.9 K/mm3 (4.8-10.8)
[2023-04-03 15:13] LABS: Free T4 (Free Thyroxine) 0.82 ng/dl (0.78-2.19)
[2023-04-03 15:35] LABS: Alanine Aminotransferase 16 U/L (12-78); Albumin Level 4.4 g/dl (3.5-5.0); Alkaline Phosphatase 70 U/L (38-126); Anion Gap 11.4 mEq/L (5-15); Aspartate Amino Transferase 22 U/L (14-36); Bilirubin,Direct 0.1 mg/dl (0.0-0.4); Bilirubin,Indirect 0.1 mg/dL (0.0-0.9); Bilirubin,Total 0.2 mg/dl (0.2-1.3); Bilirubin,Unconjugated 0.1 mg/dL (0.0-1.1); Blood Urea Nitrogen 8 mg/dl (7-17); Calcium 9.6 mg/dl (8.4-10.2); Carbon Dioxide 32 mmol/L (22.0-30.0); Chloride 102 mmol/L (98-107); Chol/HDL Ratio 4.9 (1-3.5); Cholesterol 279 mg/dl (140-200); Estimated Glomerular Filt Rate 89 ml/min (>60); GFR (African American) 108 ML/MIN (>60); Glucose 78 mg/dl (74-100); HDL Cholesterol 57 mg/dl (40-60); Magnesium 1.9 mg/dl (1.6-2.3); Potassium 5.4 mmoL/L (3.5-5.1); Sodium 140 mmol/L (136-145); Total Protein,Serum 7.5 g/dl (6.3-8.2); Triglycerides 192 mg/dl (30-150); VLDL Cholesterol 38 mg/dL (0-40)
[2023-04-03 15:45] LABS: Direct LDL Cholesterol 158.02 mg/dL (100-129)
[2023-04-03 16:06] LABS: Thyroid Stimulating Hormone 0.77 uIU/mL (0.465-4.68)
== END ==
PROVIDERS: PCP Emergency Medicine; Visit Provider Nurse Practitioner
DX: R06.00 Dyspnea, unspecified (principal); R07.9 Chest pain, unspecified; R94.31 Abnormal electrocardiogram [ECG] [EKG]; Z87.891 Personal history of nicotine dependence
CPT/HCPCS: 36415; 80048; 80061; 80076; 83735; 84439; 84443; 85025; 93270

== ENCOUNTER 2023-04-17 07:59 | Outpatient (CLI) | payer OTHER, SELFPAY ==
--- NOTE | 2023-04-17 08:03 | CT_ITS ---
APPROVED REPORT Certified Personal Finance Counselor: CLINICAL INDICATION Chest Pain TECHNIQUE Image Acquisition: A 128 slice MDCT scanner (urturna View) was used for data acquisition. A noncontrast coronary calcium scan was performed. A CT attenuation threshold of 130 Hounsfield units (HU) was used for the detection of calcium in contiguous voxels of 1 sq mm in area to be counted as individual lesions. Bolus tracking in the ascending aorta with a threshold of 180 HU was performed. Immediately afterwards, ECG synchronized cardiac CT was then performed from the cardiac base to apex using retrospective gating with ECG tube current modulation. A total of 85 mL of Isovue 370 mg/mL contrast medium was administered at 5 mL/sec followed by a saline flush using a biphasic injection protocol. A tube voltage of 120 KVp was used. The patient received the following medications prior to the cardiac CT. 25 mg of oral metoprolol 0.8 mg of sublingual nitroglycerin. The average heart rate at the time of acquisition was 49 bpm and regular. Image Reconstruction Transaxial images were reconstructed at 0.67 mm slide thickness. Data was reviewed interactively on an advanced workstation capable of 2 and 3-dimensional displays in all conventional reconstruction formats, including multiplanar reformations, maximum intensity projections, curved multiplanar reformations, and volume rendered reconstructions. When applicable, selected routine images describing the relevant coronary anatomy and pathology were saved and sent to PACS. Complications None Technical Quality Overall image quality was good. Coronary artery opacification was adequate. Total DLP (Dose-Length Product) is 1103.8 mGy-cm. The reported value represents the total of one or more individual components during the CT acquisition of this date and at this time, and as such, the same value may appear in more than one CT report depending on the interpreting/reporting physicians. COMPARISON None FINDINGS CT Coronary Calcium Scoring LMA (Left Main Artery) = 0 LAD (Left Anterior Descending) = 0 LCX (Left Coronary Circumflex) = 0 RCA (Right Coronary Artery) = 0 Total Calcium Score = 0 using the AJ-130 method. The interpretation of the calcium heart score is based on the following continuum*: 0 = no calcified plaque detected (risk of coronary artery disease is very low ??? less than 5%) 1-10 = calcium detected in extremely minimal levels (risk of coronary diseases is still low ??? less than 10%) 11-100 = mild levels of plaque detected with certainty (mild or minimal narrowing of heart arteries is likely) 101-400 = definite,at least moderate levels of plaque detected (relatively high risk of a heart attack within 3-5 years) >401-999 = extensive levels of plaque detected (high risk of heart attack, high levels of vascular disease are present, high likelihood of at least one significant coronary narrowing) *The calcium heart score quantifies the burden of coronary calcification/plaque in the coronary arteries. The calcium heart score is not able to evaluate the presence or burden of non-calcified (i.e. soft) plaque. There is no identifiable calcification in the aortic valve, mitral annulus or mitral valve, pericardium, or myocardium. Coronary CT Angiography Coronaries have normal origin and proximal course. The coronary arterial system is co-dominant. Note: Stenosis is reported as maximum percentage diameter stenosis. Stenosis grading is reported using the following scheme: Quantitative Stenosis Grading: Left Main (LM): The left main originates normally from the left sinus of Valsalva. The LM bifurcates into the left anterior descending artery and left circumflex artery. The LM is patent with no evidence of ath
[2023-04-17 08:32] VITALS: BP 124/72; PULSE 66; RESP 18; TEMP 36.1; O2SAT 96
[2023-04-17 09:30] VITALS: BP 133/82; PULSE 59; RESP 18; O2SAT 96
--- NOTE | 2023-04-17 09:30 | PC.NURSE ---
Pt to CT room, BP 133/82. Nitro 0.8mg SL given per standing CTA orders.
[2023-04-17 09:33] VITALS: BP 107/65; PULSE 60
--- NOTE | 2023-04-17 09:33 | PC.NURSE ---
Post nitro BP, pt without C/O
[2023-04-17 09:50] VITALS: BP 113/73; BP 115/62; PULSE 60; RESP 16; TEMP 36.6; O2SAT 96
--- NOTE | 2023-04-17 09:50 | PC.NURSE ---
Pt to post op and relaxing in recliner without C/O at this time, VSS. report given to Bhumi Sears RN
[2023-04-17 10:05] VITALS: BP 95/56; PULSE 60; RESP 16; O2SAT 96
[2023-04-17 10:20] VITALS: BP 90/57; PULSE 60; RESP 16; O2SAT 96
== END 2023-04-17 10:50 | disposition home or self-care (01) ==
PROVIDERS: PCP Emergency Medicine; Visit Provider Nurse Practitioner
DX: R06.00 Dyspnea, unspecified (principal); R07.9 Chest pain, unspecified; R94.31 Abnormal electrocardiogram [ECG] [EKG]; Z87.891 Personal history of nicotine dependence
CPT/HCPCS: 75574; Q9967

== ENCOUNTER → 2023-04-23 09:49 | Outpatient (CLI) | payer OTHER, SELFPAY ==
--- NOTE | 2023-04-23 09:53 | CA_ITS ---
APPROVED REPORT EXAM: Comprehensive 2D, Doppler, and color-flow Echocardiogram Outside Parts Salesman: Sandie Ding, RCS, RVS Ht: 5 ft 3 in Wt: 137lbs BSA: 1.65 BP: 145/85 mmHg Indications: abn ekg, cp, sob, arrythmia, ex-smoker 2D Dimensions Aortic Root 2.31 cm LA Volume 61.30 mL Left Atrium 2.12 cm LA Volume Index 37.990906 mL/m2 (M/F) 16-34 LVOT 1.73 cm (M/F) 1.5-2.5 M-Mode Dimensions RVDd 1.39 cm (0.9-2.6) LA Diam 3.12 cm (1.9-4.0) LVDd 4.73 cm (3.5-5.7) Ao Diam 2.57 cm (2.0-3.7) LVDs 2.96 cm (3.5-5.7) IVSd 0.81 cm (0.6-1.1) PWd 0.75 cm (0.6-1.1) EF (Teich) 67.40% EPSs 0.26 cm FS 37.40% EDV (Teich) 103.90 mL TAPSE 2.51 (<1.7) ESV (Teich) 33.90 mL LV Diastology E Decel Time 257.00 (160-240 msec) E/A Ratio 1.73 MED E' 10.80 (< 7 cm/sec) MED A' 10.00 cm/s E'/MED E' Ratio 5.89 (>14) LAT E' 11.90 (<10 cm/sec) LAT A' 5.20 cm/s E/LAT E' Ratio 5.34 (>14) Aortic Valve LVOT Max 77.00 (70-110 cm/s) LVOT VTI 13.80 cm AoV Peak Amos. 129.00 (50-130 cm/s) AO Peak GR. 6.60 mmHg AO Mean GR. 3.70 (<5 mmHg) AO VTI 27.90 (18-25 cm) MERLY (VTI) 1.16 (2.5-4.5 cm2) Mitral Valve MV A Velocity 37.00 (40-130 cm/s) E/A Ratio 1.73 MV Decel. Time 257.00 (160-240 ms) MV Mean Gr. 0.80 (<2mmHg) Pulmonary Valve RI End VMAX 124.00 cm/s Tricuspid Valve TR P. Velocity 232.00 cm/s RAP Estimate 10.00 mmHg RVSP 31.60 mmHg Left Ventricle The left ventricle is normal size. The left ventricular systolic function is normal. The left ventricular ejection fraction is within the normal range. There is normal left ventricular wall thickness. There is normal LV segmental wall motion. Diastolic function is indeterminate. LVEF is 60% Right Ventricle The right ventricle is normal size. The right ventricular systolic function is normal. Atria The left atrium is mildly dilated. The right atrium size is normal. There is no Doppler evidence of interatrial shunt. Aortic Valve The aortic valve leaflets open well. There is no aortic valvular stenosis. Trace aortic regurgitation. Mitral Valve The mitral valve is normal in structure. Mild mitral regurgitation. Tricuspid Valve The tricuspid valve leaflets are thin and pliable. Mild tricuspid regurgitation. RVSP is 25-30 mmHg. Pulmonic Valve The pulmonary valve is normal in structure. Trace pulmonic regurgitation. Great Vessels The aortic root is normal in size. The ascending aorta is not well visualized. IVC is normal in size and collapses >50% with inspiration. Pericardium There is no pericardial effusion. Other Information Study Quality: Fair Conclusion Normal biventricular systolic function. Mild LA dilation. Mild MR. Electronically signed by : Vickie Saleem MD 04/23/2023 21:46:18
== END ==
LOC: RT 09:50
PROVIDERS: PCP Emergency Medicine; Visit Provider Nurse Practitioner
DX: R06.00 Dyspnea, unspecified (principal); R07.9 Chest pain, unspecified; R94.31 Abnormal electrocardiogram [ECG] [EKG]; Z87.891 Personal history of nicotine dependence
CPT/HCPCS: 93306

== ENCOUNTER → 2023-04-25 14:15 | Outpatient (CLI) | payer OTHER, SELFPAY ==
[2023-04-25 16:24] LABS: Amphetamine/Metha Screen,Urine Negative ng/ml (<1000)
[2023-04-25 16:25] LABS: Barbiturates Screen,Urine Negative ng/ml (<200); Benzodiazepines Screen,Urine Positive ng/ml (<200)
[2023-04-25 16:26] LABS: Cannabinoid Screen,Urine Negative ng/ml (<50)
[2023-04-25 16:27] LABS: Cocaine Screen,Urine Negative ng/ml (<300); Methadone Screen,Urine Negative ng/ml (<300)
[2023-04-25 16:30] LABS: Opiate Screen,Urine Positive ng/ml (<300)
[2023-04-25 16:31] LABS: Phencyclidine Screen,Urine Negative ng/ml (<25)
== END ==
PROVIDERS: PCP Emergency Medicine; Visit Provider Emergency Medicine
DX: M79.2 Neuralgia and neuritis, unspecified (principal); Z79.899 Other long term (current) drug therapy
CPT/HCPCS: 80305

== ENCOUNTER → 2023-06-10 18:29 | Outpatient (CLI) | payer OTHER, SELFPAY ==
[2023-06-10 17:03] LABS: Valproic Acid, (Depakene) 30.4 ug/ml (50-100)
[2023-06-10 17:20] LABS: Amphetamine/Metha Screen,Urine Negative ng/ml (<1000); Barbiturates Screen,Urine Negative ng/ml (<200)
[2023-06-10 17:21] LABS: Cocaine Screen,Urine Negative ng/ml (<300)
[2023-06-10 17:22] LABS: Benzodiazepines Screen,Urine Positive ng/ml (<200)
[2023-06-10 17:23] LABS: Cannabinoid Screen,Urine Negative ng/ml (<50); Phencyclidine Screen,Urine Negative ng/ml (<25)
[2023-06-10 17:24] LABS: Methadone Screen,Urine Negative ng/ml (<300)
[2023-06-10 17:25] LABS: Opiate Screen,Urine Positive ng/ml (<300)
[2023-06-17 18:40] LABS: Alprazolam Negative (Cutoff=100); Benzodiazepines Positive ng/mL (Cutoff=100); Clonazepam Negative (Cutoff=100); Codeine Negative (Cutoff=100); Flurazepam Negative (Cutoff=100); Hydrocodone Positive (.); Hydrocodone Confirm 1524 ng/mL (Cutoff=100); Hydromorphone Positive (.); Hydromorphone Confirm 375 ng/mL (Cutoff=100); Lorazepam Negative (Cutoff=100); Midazolam Negative (Cutoff=100); Morphine Negative (Cutoff=100); Opiates Positive (.); Temazepam Positive (.); Triazolam Negative (Cutoff=100)
[2023-06-17 22:46] LABS: Free Valproic Acid (Depakote) 4.7
== END ==
PROVIDERS: PCP Nurse Practitioner Family; Visit Provider Nurse Practitioner Family
DX: R42 Dizziness and giddiness (principal); R56.9 Unspecified convulsions; Z79.899 Other long term (current) drug therapy
CPT/HCPCS: 80164; 80165; 80305; 80346; 80361; G0480

== ENCOUNTER → 2023-06-11 13:14 | Outpatient (CLI) | payer OTHER, SELFPAY | PROVIDERS: PCP Nurse Practitioner Family; Visit Provider Nurse Practitioner Family | DX: F41.9 Anxiety disorder, unspecified (principal); R42 Dizziness and giddiness; R56.9 Unspecified convulsions; M54.2 Cervicalgia | CPT/HCPCS: 80346; 80361; G0480 ==

== ENCOUNTER → 2023-06-20 08:33 | Outpatient (CLI) | payer OTHER, SELFPAY ==
[2023-06-20 23:06] LABS: Amphetamine/Metha Screen,Urine Negative ng/ml (<1000)
[2023-06-20 23:07] LABS: Barbiturates Screen,Urine Negative ng/ml (<200)
[2023-06-20 23:08] LABS: Benzodiazepines Screen,Urine Positive ng/ml (<200); Cannabinoid Screen,Urine Negative ng/ml (<50)
[2023-06-20 23:09] LABS: Cocaine Screen,Urine Negative ng/ml (<300); Methadone Screen,Urine Negative ng/ml (<300)
[2023-06-20 23:10] LABS: Opiate Screen,Urine Positive ng/ml (<300)
[2023-06-20 23:11] LABS: Phencyclidine Screen,Urine Negative ng/ml (<25)
== END ==
PROVIDERS: PCP Nurse Practitioner Family; Visit Provider Nurse Practitioner Family
DX: Z79.899 Other long term (current) drug therapy (principal)
CPT/HCPCS: 80305

== ENCOUNTER 2023-07-22 15:39 | Outpatient (CLI) | payer OTHER, SELFPAY ==
[2023-07-22 16:16] LABS: Amphetamine/Metha Screen,Urine Negative ng/ml (<1000)
[2023-07-22 16:17] LABS: Barbiturates Screen,Urine Negative ng/ml (<200); Benzodiazepines Screen,Urine Positive ng/ml (<200)
[2023-07-22 16:18] LABS: Cannabinoid Screen,Urine Negative ng/ml (<50); Cocaine Screen,Urine Negative ng/ml (<300)
[2023-07-22 16:19] LABS: Methadone Screen,Urine Negative ng/ml (<300)
[2023-07-22 16:20] LABS: Opiate Screen,Urine Positive ng/ml (<300); Phencyclidine Screen,Urine Negative ng/ml (<25)
== END 2023-07-22 23:59 ==
LOC: LAB.DROPOF 15:40
PROVIDERS: PCP Internal Medicine; Visit Provider Internal Medicine
DX: Z79.899 Other long term (current) drug therapy (principal)
CPT/HCPCS: 80307

== ENCOUNTER → 2023-08-13 14:35 | Outpatient (POV) | payer OTHER, SELFPAY ==
--- NOTE | 2023-08-13 15:12 | EXP.PAIN.OV ---
HPI Data of Consult Patient: new to practice Consult date: 08/13/23 Requesting Physician: Jyoti Mccoy APRN Primary Care Provider: Yousif Garcia DO Consult Narrative History of present illness: Ms. Raya is a 48 year old female who presents today as a new patient. She is a referral from Yousif Garcia's office. Today she rates her pain a 10 out of 10. Patient states she has pain throughout her spine including her neck with radiating symptoms into her upper left arm all the way down her mid back to her low back with radiating symptoms down her left leg. Patient states this is been going on for years and progressively worsened. Patient states it is unrelated to any specific trauma or injury. Patient does state that this is a constant aching, throbbing sensation with occasional sharp shooting pains. She does state that she has weakness in both her upper and lower extremity and frequently drops items in her hands and will stumble due to her left leg. Patient does states she had previous previous cervical fusions on 2 different occasions however still has chronic pain in this site. Patient states that she will frequently have to pop her neck in order to get some relief. Patient has tried [id number]-mrguate Tylenol and ibuprofen along with heat and ice and topicals with minimal relief. Patient does state that she continues to use heat along with a TENS unit for her neck however the TENS does not help with her low back symptoms. Patient states that for her low back she will often use pillows to help with positioning along with a heating pad and frequently pressure will help. Patient states she does do exercise on a daily basis and has for more than 6 weeks with minimal relief. Patient denies any recent imaging and states it has been at least a couple of years. Patient does state the pain interferes with her ability to perform activities of daily living such as cooking and cleaning. She does state that she has a significant history of seizures and does have a service dog to help identify and times when she if fixing to have one. Patient does also states she has been experiencing urinary incontinence for some time. Patient is prescribed diazepam 2 mg daily and Collins 10 mg 3 times a day from her primary care provider. Her Darrius has been reviewed and is appropriate. CC: Jyoti Mccoy APRN [facility] Disclaimer: The information contained in this section may have been updated after the patient was seen, as this information can be updated by other users. Medical History Abnormal electrocardiogram [ECG] [EKG] Acute bronchitis Acute pain of left knee Allergic reaction caused by a drug Anxiety Valium prescribed by psychiatrist in [place] Arm pain, left Bronchitis Cervical strain Chronic lumbar pain Complete miscarriage Concussion COPD exacerbation COVID-19 Depression Dyspnea Elbow pain Exposure to COVID-19 virus Fall Fall Functional abdominal pain syndrome Gastroenteritis Generalized seizure Headache Lower extremity pain Lumbar radiculopathy Medication reaction Neck Pain No significant past medical history Pharyngitis Rash and nonspecific skin eruption Seizure Strain of lumbar region Strep pharyngitis Swelling of labia UTI (urinary tract infection) Viral syndrome Vomiting Surgical History H/O cervical spine surgery H/O: History of appendectomy History of D&C History of kidney surgery History of partial hysterectomy Family History Other Cancer Diabetes Heart attack Hypertension Stroke Social History Smoking Status: Former smoker tobacco type: cigarettes alcohol intake: never substance use type: denies use current occupational status: disabled Travel in the last 8 weeks: None household members: none housing: other Review of Systems Review of Systems Review of systems:: pertinent systems reviewed and negative unless documented below Review of systems (narrative): Review of Systems: General: No recent weight changes, no fever, no sleep disturbances Respiratory: No cough, no shortness of air, no recurring pulmonary infections Cardiovascular/peripheral vascular: No chest pain, no palpitations, no edema, no shortness of breath Gastrointestinal: No new onset incontinence, normal bowel movements reported Genitourinary: No new onset incontinence Musculoskeletal: Neck pain: Left arm weakness, mid back pain, low back pain with left leg pain Psychiatric: [Normal mood/affect] Neurological: [Denies weakness in extremities], [denies balance issues] Meds Home Medications and Allergies Home Medications Medication Instructions Recorded Confirmed Type desvenlafaxine succinate 50 mg 50 mg PO DAILY 09/30/22 07/22/23 History tablet,extended release 24 hr desvenlafaxine succinate 25 mg 25 mg PO DAILY 03/19/23 07/22/23 History tablet,extended release 24 hr divalproex 250 mg tablet,delayed See Rx Instructions .Route 04/28/23 07/22/23 Rx release .COMPLEX #60 tabs diazepam 10 mg tablet 10 mg PO QHS Anxiety 06/10/23 07/22/23 History hydrocodone 10 mg-acetaminophen 1 tab PO TID 30 days #90 tabs 07/22/23 07/22/23 Rx 325 mg tablet meclizine 12.5 mg tablet 12.5 mg PO TID PRN dizziness #30 07/22/23 07/22/23 Rx tabs New Prescriptions to Start Prescriptions: Allergies Allergy/AdvReac Type Severity Reaction Status Date / Time nitrous oxide Allergy Severe Unknown Verified 07/22/23 11:47 allergy reaction codeine [CODEINE] Allergy Unknown Verified 07/22/23 11:47 fluoxetine [From PROZAC] Allergy Unknown Verified 07/22/23 11:47 ibuprofen [IBUPROFEN] Allergy Unknown Verified 07/22/23 11:47 latex [LATEX] Allergy Unknown Verified 07/22/23 11:47 loratadine [From CLARITIN] Allergy Unknown Verified 07/22/23 11:47 magnesium [MAGNESIUM] Allergy Unknown Verified 07/22/23 11:47 nitrofurantoin Allergy Unknown Verified 07/22/23 11:47 [NITROFURANTOIN] oxycodone [OXYCODONE] Allergy Unknown Verified 07/22/23 11:47 risperidone Allergy Unknown Verified 07/22/23 11:47 sumatriptan [SUMATRIPTAN] Allergy Unknown Verified 07/22/23 11:47 tramadol [TRAMADOL] Allergy Unknown Verified 07/22/23 11:47 trazodone [TRAZODONE] Allergy Unknown Altered Verified 07/22/23 11:47 Sense of Taste duloxetine Allergy Verified 07/22/23 11:47 metronidazole [From Flagyl] Allergy Hallucinati Verified 07/22/23 11:47 ons Objective Narrative: Physical Exam: General: Alert and oriented x3, no acute distress, pleasant and cooperative Lungs: Respirations even and unlabored, symmetrical chest expansion Eyes: PERRL Musculoskeletal: Flexion and extension of lumbar [spine] somewhat guarded secondary to pain, [antalgic gait noted] positive left leg raise with decreased sensation to light touch and decreased reflexes, extreme point tenderness along her lower lumbar spine with palpation Neurological: Speech clear, no gross sensory deficit Additional findings Additional findings: COMPARISON: CT CERVICAL SPINE WO CON 01/20/2020 5:51 PM FINDINGS: Bones/joints: Craniocervical alignment is normal. The occipital condyles are intact. The odontoid is intact. No jumped or perched facets. No fractures. Straightening of cervical lordosis which may be positional or related to an element of muscular strain/spasm. Cervical alignment is otherwise well maintained. No blastic or lytic lesions. Prior ACDF C5-C6 with solid bony union and removal of prior anterior fixation hardware at this level. Prior ACDF at C6-C7 with anterior plate and screws demonstrating no evidence of hardware breakage, displacement, loosening, or infection. Interbody fusion elements also present at this level although no solid bony union is identified across the disc space at C6-C7. No compressive soft disc protrusion or extrusion is evident by CT. Minor 1 mm posterior spurring C3-C4. No canal stenosis. No neuroforaminal stenosis. Lungs: Mild bilateral apical pleural/parenchymal scarring. Partially calcified granuloma in the posterior left apex measuring 3 mm. Thyroid: The visualized thyroid gland is unremarkable. Soft tissues: Paraspinous soft tissues are unremarkable without significant soft tissue swelling or soft tissue hematoma. IMPRESSION: 1. No evidence of fracture or acute traumatic subluxation. 2. Straightening of cervical lordosis which may be positional or related to an element of muscular strain/spasm. Cervical alignment is otherwise well maintained. 3. Prior interbody fusion at C5-C6 with solid bony union. Prior ACDF at C6-C7 as well with intact anterior fixation hardware hardware although there is no solid bony union across the disc space at this point. INGS: There is straightening of the lumbar lordosis similar to the previous exam. Spinal cord ends at the L1 level. No acute fracture or dislocation. L1-L2: Unremarkable. L2-L3: Unremarkable. L3-L4: Mild facet and ligamentum hypertrophy not significantly changed. Minimal amount fluid in the facet joints L4-5: Mild facet and ligamentum hypertrophy not significantly changed with minimal amount of fluid in the facet joints. L5-S1: Minimal bulging disc with minimal central disc protrusion without impingement not significantly changed. Mild facet hypertrophic change. No extruded herniated disc evident. No significant change from the previous exam. 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 IMPRESSION: 1. Mild lumbar spondylosis as detailed above overall not significantly changed. 2. Horseshoe kidney with hydronephrosis Dictated by: Madi Milian MD 01/30/2021 17:50 Madi Milian MD in [place] 01/30/2021 17:50 Assessment and Plan *Assessment and plan (1) Neck Pain: Status: Chronic Category: Medical Code(s): M54.2 - Cervicalgia (2) Cervical radicular pain: Status: Acute Category: Medical Code(s): M54.12 - Radiculopathy, cervical region (3) Chronic lumbar pain: Status: Acute Qualifiers: Back pain laterality: left Sciatica laterality: sciatica of left side Sciatica presence: with sciatica Qualified Code(s): M54.42 - Lumbago with sciatica, left side; G89.29 - Other chronic pain Category: Medical Code(s): M54.5 - Low back pain; G89.29 - Other chronic pain (4) Chronic pain syndrome: Status: Acute Category: Medical Code(s): G89.4 - Chronic pain syndrome (5) Left leg pain: Status: Acute Category: Medical Code(s): M79.605 - Pain in left leg Plan Patient is experiencing significant pain at multiple areas however her lumbar spine and left leg symptoms are giving her the most problems currently. Patient did have limited range of motion of the lumbar spine during today's visit along with a positive left leg raise and decreased sensation to light touch and decreased reflexes. Patient did have extreme point tenderness with palpation at her lower lumbar spine. I have discussed with the patient that she may benefit from a left transforaminal epidural steroid injection. Risk and benefits were discussed with patient and she would like to proceed forward with this plan of care. Patient denies any blood thinners. I have also discussed with the patient that I will order x-ray imaging of her cervical, thoracic and lumbar spine with an MRI without contrast to follow-up of her lumbar. Patient will be scheduled for a left transforaminal epidural steroid injection L4-L5 and L5-S1 under fluoroscopy. Patient has been counseled that this injection will be done here at the hospital location [place] from the gift shop. Patient has been instructed to contact the clinic with any concerns before the next appointment. Dr. Rubio has reviewed this note and agrees with this plan of care. This note was dictated using voice recognition software and make contain errors or omissions.
[2023-08-13 15:44] VITALS: BP 123/66; PULSE 75; RESP 18; O2SAT 98; BMI 25.7
--- NOTE | 2023-08-13 15:55 | XR_ITS ---
PROCEDURE INFORMATION: Exam: XR Entire Spine Exam date and time: 08/13/2023 4:10 PM Age: 48 years old Clinical indication: Pain; Lumbago with sciatica; Additional info: Back pain TECHNIQUE: Imaging protocol: XR of the entire spine. Evaluation for scoliosis or surgical evaluation. Views: 6 or more views. COMPARISON: CT CERVICAL SPINE WO CON 04/05/2022 8:58 PM FINDINGS: Bones/joints: Postop changes of the lower C-spine with fusion at the C5-C6 and C6-C7 levels including anterior plate and screw fixation and interbody spacer at C6-C7 and a well incorporated interbody graft at C5-C6 which is fused. Mild degenerative changes at the C4-C5 level. The neural foramina of the C-spine are patent without significant narrowing. Mild degenerative spurring noted at the T3-4, T4-5 and T9-10 level. Vertebral body heights are intact. Mild to moderate levoscoliosis of the upper thoracic spine with 17 degrees of curvature as measured from the superior endplate of T2 to the superior endplate of T5. Mild degenerative spurring noted at the L2-L3 and L3-L4 and L4-L5 levels. Vertebral body heights and disc spaces preserved. Mild dextroscoliosis of the lumbar spine with 7 degrees of curvature as measured from the superior endplate of L1 to the superior endplate of L4. IMPRESSION: 1. Mild multilevel degenerative changes of the cervical, thoracic and lumbar spine. Postop changes of the lower C-spine. 2. Mild to moderate levoscoliosis upper thoracic spine and mild dextroscoliosis of the lumbar spine.
== END ==
PROVIDERS: PCP Internal Medicine; Visit Provider Nurse Practitioner Family
DX: M54.12 Radiculopathy, cervical region (principal); M54.42 Lumbago with sciatica, left side; G89.4 Chronic pain syndrome; M79.605 Pain in left leg
CPT/HCPCS: 72084; 99202; G0463

== ENCOUNTER 2023-08-17 02:37 | Emergency (ER) | payer OTHER, SELFPAY ==
[2023-08-17 02:37] VITALS: BP 142/120; PULSE 96; RESP 20; TEMP 36.8; O2SAT 98; BMI 26.2
--- NOTE | 2023-08-17 02:37 | PC.NURSE ---
in room talking with patient at this time.
--- NOTE | 2023-08-17 02:43 | PC.NURSE ---
seizure pads in place
--- NOTE | 2023-08-17 02:56 | CT_ITS ---
PROCEDURE INFORMATION: Exam: CT Head Without Contrast Exam date and time: 08/17/2023 3:26 AM Age: 48 years old Clinical indication: Injury or trauma; Fall; Other: Headache; Dizziness and other: Seizure; Additional info: Fall, dizzy, reported seizure, headache TECHNIQUE: Imaging protocol: Computed tomography of the head without contrast. Radiation optimization: All CT scans at this facility use at least one of these dose optimization techniques: automated exposure control; mA and/or kV adjustment per patient size (includes targeted exams where dose is matched to clinical indication); or iterative reconstruction. COMPARISON: CT HEAD/BRAIN WO CON 02/26/2023 9:42 PM FINDINGS: Brain: Normal. No hemorrhage. Unremarkable white matter. No mass effect. Cerebral ventricles: No ventriculomegaly. Paranasal sinuses: Visualized sinuses are unremarkable. No fluid levels. Mastoid air cells: Visualized mastoid air cells are well aerated. Bones/joints: Unremarkable. No acute fracture. Soft tissues: Unremarkable. IMPRESSION: No acute intracranial abnormality.
[2023-08-17 03:00] VITALS: BP 107/56; PULSE 83; O2SAT 97
[2023-08-17 03:07] LABS: Basophils # 0.1 K/mm3 (0-0.2); Basophils % 0.7 % (0.1-2.0); Chloride 104 mmol/L (98-107); Eosinophils # 0.2 K/mm3 (0.0-0.4); Eosinophils % 2.2 % (0.1-12.0); Hematocrit 40.2 % (37.0-47.0); Hemoglobin 14.1 g/dL (12.2-16.2); Lymphocytes # 4.1 K/mm3 (0.7-4.5); Lymphocytes % 45.1 % (10-50); Mean Corpuscular HGB Conc 35.1 g/dL (31.8-35.4); Mean Corpuscular Hemoglobin 32.2 pg (27.0-31.2); Mean Corpuscular Volume 91.7 fl (81-99); Mean Platelet Volume 9.4 fl (7.4-10.4); Monocytes # 0.4 K/mm3 (0.1-1.0); Monocytes % 4.7 % (1.7-9.3); Neutrophils # 4.3 K/mm3 (1.8-7.8); Neutrophils % 47.4 % (37.0-80.0); Platelet Count 270 K/mm3 (142-424); Red Blood Count 4.39 M/mm3 (4.20-5.40); Red Cell Distribution Width 13.1 % (11.5-17.5); White Blood Count 9.1 K/mm3 (4.8-10.8)
[2023-08-17 03:08] LABS: Potassium 3.3 mmoL/L (3.5-5.1); Sodium 140 mmol/L (136-145)
[2023-08-17 03:10] LABS: Alanine Aminotransferase 25 U/L (12-78); Aspartate Amino Transferase 32 U/L (14-36); Blood Urea Nitrogen 12 mg/dl (7-17); Creatinine Clearance Estimated 103 mL/min (50-200); Estimated Glomerular Filt Rate 89 ml/min (>60); GFR (African American) 108 ML/MIN (>60); HCG Qualitative, Serum Negative (Negative)
[2023-08-17 03:11] LABS: Albumin Level 4.1 g/dl (3.5-5.0); Albumin/Globulin Ratio 1.4 (1.1-1.8); Alkaline Phosphatase 84 U/L (38-126); Anion Gap 5.3 mEq/L (5-15); Bilirubin,Total 0.2 mg/dl (0.2-1.3); Calcium 9.1 mg/dl (8.4-10.2); Carbon Dioxide 34 mmol/L (22.0-30.0); Globulin 2.9 g/dL (1.3-3.2); Glucose 128 mg/dl (74-100)
[2023-08-17] MEDS: LACTATED RINGERS 1000ML 1,000 ML 999 ML IV (03:11)
[2023-08-17] MEDS: PROCHLORPERAZINE 10MG/2ML VIAL 10 MG IV (03:12)
[2023-08-17] MEDS: diazePAM 5MG TABLET 10 MG PO (03:12)
[2023-08-17] MEDS: ACETAMINOPHEN 500MG TAB 1000 MG PO (03:12)
[2023-08-17] MEDS: KETOROLAC 30MG/ML VIAL 30 MG IV (03:12)
--- NOTE | 2023-08-17 03:15 | HMH.EDGENADL ---
Discharge Plan Disposition Patient Disposition: Home, Self-Care Prescriptions Prescriptions: No Action diazepam 10 mg tablet 10 mg PO QHS Patient Comments: TAKE ONE TABLET BY MOUTH EVERY DAY AT BEDTIME MAY CAUSE DROWSINESS hydrocodone-acetaminophen 10-325 mg tablet 1 tab PO TID 30 Days Qty: 90 0RF meclizine 12.5 mg tablet 12.5 mg PO TID PRN (Reason: dizziness) Qty: 30 0RF desvenlafaxine succinate 50 mg tablet extended release 24 hr 50 mg PO DAILY desvenlafaxine succinate 25 mg tablet extended release 24 hr 25 mg PO DAILY Patient Comments: TAKE ONE TABLET BY MOUTH EVERY MORNING divalproex 250 mg tablet,delayed release (DR/EC) 500 mg PO HS Rx Instructions: TAKE TWO TABLETS BY MOUTH EVERY DAY AT BEDTIME FOR seizures Referrals Follow up/Referrals: Provider,Referral, MD [Referring] - See instructions Activity Restrictions/Add. Instructions Additional Instructions/Restrictions: Please follow-up with your primary care provider. Please return to the emergency department if you develop any new or worsening symptoms or become concerned for your health. Clinical Impressions Clinical Impression: Anxiety, Dizziness, Spell of altered consciousness Instructions Patient Instructions: DI for Seizure Disorder -- Adult, DI for Seizure (Not Epilepsy/Seizure Disorder), DI for Seizure Disorder -- Child Discharge ED Provider: Дмитрий Britton Adult HPI General Chief complaint: Seizure Stated complaint: seizures Time Seen by Provider: 08/17/23 02:40 Mode of Arrival: EMS Source of Information: Patient Limitations: No Limitations Description of Symptoms (Recalled from ER Triage Doc. by RN): Patient states that she had an unwittness seizure prior to EMS arrival. History of Present Illness HPI narrative: 48-year-old female with history of PTSD, OCD, anxiety, pseudoseizures, chronic pain on chronic opiates, presents with reported seizure. Patient reports that she has a diagnosed seizure disorder, started several years ago after a neck surgery. She thinks that she had a seizure a couple of days ago and that she fell and hit her head. Her head has been hurting since then. Tonight she reports that she thinks she had another seizure. She reports that her dogs were barking at her and then she laid down and woke up in a state of confusion. Denies any significant trauma tonight. She reports she did not pee on herself or bite her tongue. She reports she is not sure how long this possible seizure might have lasted. She reports that she has been having headache and dizziness recently including the last few days. She reports that she missed her night medications a few days ago. She was recently placed on meclizine by primary care. She reports the dizziness is not significantly different from last several days. She denies any chest pain or abdominal pain. Does report that she has been peeing more than normal. She reports that she is very anxious. On chart review, patient has been evaluated by neurology in the past. She has chronic headaches on multiple medications. She has been evaluated with EEGs in the past and has been diagnosed with nonepileptic spells. Patient has never had any documented epileptic seizures. Related Data Home Medications Medication Instructions Recorded Confirmed desvenlafaxine succinate 50 mg 50 mg PO DAILY 09/30/22 08/17/23 tablet,extended release 24 hr desvenlafaxine succinate 25 mg 25 mg PO DAILY 03/19/23 08/17/23 tablet,extended release 24 hr diazepam 10 mg tablet 10 mg PO QHS Anxiety 06/10/23 08/17/23 divalproex 250 mg tablet,delayed 500 mg PO HS 08/17/23 08/17/23 release Previous Rx's Medication Instructions Recorded hydrocodone 10 mg-acetaminophen 1 tab PO TID 30 days #90 tabs 07/22/23 325 mg tablet meclizine 12.5 mg tablet 12.5 mg PO TID PRN dizziness #30 07/22/23 tabs Allergies Allergy/AdvReac Type Severity Reaction Status Date / Time nitrous oxide Allergy Severe Unknown Verified 07/22/23 11:47 allergy reaction codeine [CODEINE] Allergy Unknown Verified 07/22/23 11:47 fluoxetine [From PROZAC] Allergy Unknown Verified 07/22/23 11:47 ibuprofen [IBUPROFEN] Allergy Unknown Verified 07/22/23 11:47 latex [LATEX] Allergy Unknown Verified 07/22/23 11:47 loratadine [From CLARITIN] Allergy Unknown Verified 07/22/23 11:47 magnesium [MAGNESIUM] Allergy Unknown Verified 07/22/23 11:47 nitrofurantoin Allergy Unknown Verified 07/22/23 11:47 [NITROFURANTOIN] oxycodone [OXYCODONE] Allergy Unknown Verified 07/22/23 11:47 risperidone Allergy Unknown Verified 07/22/23 11:47 sumatriptan [SUMATRIPTAN] Allergy Unknown Verified 07/22/23 11:47 tramadol [TRAMADOL] Allergy Unknown Verified 07/22/23 11:47 trazodone [TRAZODONE] Allergy Unknown Altered Verified 07/22/23 11:47 Sense of Taste duloxetine Allergy Verified 07/22/23 11:47 metronidazole [From Flagyl] Allergy Hallucinati Verified 07/22/23 11:47 ons [facility] Disclaimer: The information contained in this section may have been updated after the patient was seen, as this information can be updated by other users. Medical History Abnormal electrocardiogram [ECG] [EKG] Acute bronchitis Acute pain of left knee Allergic reaction caused by a drug Anxiety Valium prescribed by psychiatrist in [place] Arm pain, left Bronchitis Cervical strain Chronic lumbar pain Complete miscarriage Concussion COPD exacerbation COVID-19 Depression Dyspnea Elbow pain Exposure to COVID-19 virus Fall Fall Functional abdominal pain syndrome Gastroenteritis Generalized seizure Headache Lower extremity pain Lumbar radiculopathy Medication reaction Neck Pain No significant past medical history Pharyngitis Rash and nonspecific skin eruption Seizure Strain of lumbar region Strep pharyngitis Swelling of labia UTI (urinary tract infection) Viral syndrome Vomiting Surgical History H/O cervical spine surgery H/O: History of appendectomy History of D&C History of kidney surgery History of partial hysterectomy Family History Other Cancer Diabetes Heart attack Hypertension Stroke Social History (Updated 08/13/23 @ 15:45 by Hanna Hayes RN) Smoking Status: Never smoker alcohol intake: never substance use type: denies use current occupational status: disabled Travel in the last 8 weeks: None household members: none housing: other ROS Obtained: Yes All systems reviewed & no additional complaints except as documented Physical Exam General General appearance: alert and anxious Head Head exam: atraumatic and normocephalic Eye Eye exam: Present normal appearance, PERRL and EOMI (Horizontal nystagmus noted with lateral gaze bilaterally) ENT ENT exam: Present normal oropharynx and normal external ear exam Neck Neck exam: Present normal inspection and full ROM Chest Chest inspection: Present normal inspection and symmetric chest wall rise; Absent tenderness Respiratory Respiratory exam: Present normal lung sounds bilaterally; Absent respiratory distress Cardiovascular Cardiovascular exam: Present regular rate and normal rhythm Abdominal Exam Abdominal exam: Present soft; Absent distention, tenderness or guarding Extremities Exam Extremities exam: Present normal inspection; Absent edema or joint swelling Back Exam Back exam: Present normal inspection and tenderness (Low back, stable from prior) Neurological Exam Neurological exam: Present alert, oriented X3 and CN II-XII intact; Absent motor sensory deficit Psychiatric Psychiatric exam: Present anxious and other (crying) Skin Skin exam: Present warm, dry and normal color Lymphatic Lymphatic Findings: no adenopathy Medical Decision Making Medical Records Medical records reviewed: Yes I reviewed the patient's medical records. Darrius Inquiry Pt receiving controlled substance: No Darrius was queried for this patient: No Vital Signs: 08/17/23 02:37 08/17/23 03:00 08/17/23 03:45 Temperature 98.3 F Temperature Source Oral Pulse Rate 83 85 Pulse Rate [Radial] 96 H Respiratory Rate 20 Blood Pressure 107/56 L 109/41 L Blood Pressure [Right Arm] 142/120 H Blood Pressure Mean [Right Arm] 127 Blood Pressure Source [Right Arm] Automatic Cuff Blood Pressure Position [Right Arm] Supine 02 Sat by Pulse Oximetry 98 97 97 Oxygen Delivery Method Room Air 08/17/23 04:00 Temperature Temperature Source Pulse Rate 83 Pulse Rate [Radial] Respiratory Rate Blood Pressure 130/73 Blood Pressure [Right Arm] Blood Pressure Mean [Right Arm] Blood Pressure Source [Right Arm] Blood Pressure Position [Right Arm] 02 Sat by Pulse Oximetry 98 Oxygen Delivery Method Lab Data Lab results reviewed: Yes I reviewed the patient's lab results. Lab Results 08/17/23 02:36: WBC 9.1, RBC 4.39, Hgb 14.1, Hct 40.2, MCV 91.7, MCH 32.2 H, MCHC 35.1, RDW 13.1, Plt Count 270, MPV 9.4, Neut % (Auto) 47.4, Lymph % (Auto) 45.1, [place] % (Auto) 4.7, Eos % (Auto) 2.2, Baso % (Auto) 0.7, Neut # (Auto) 4.3, Lymph # (Auto) 4.1, [place] # (Auto) 0.4, Eos # (Auto) 0.2, Baso # (Auto) 0.1, Sodium 140, Potassium 3.3 L, Chloride 104, Carbon Dioxide 34 H, Anion Gap 5.3, BUN 12, Creatinine 0.70, Estimated Creat Clear 103, Estimated GFR 89, Est GFR ( Amer) 108, Glucose 128 H, Calcium 9.1, Total Bilirubin 0.2, AST 32, ALT 25, Alkaline Phosphatase 84, Total Protein 7.0, Albumin 4.1, Globulin 2.9, Albumin/Globulin Ratio 1.4, Serum HCG, Qual Negative 08/17/23 03:44: Urine Color Yellow, Urine Appearance Sl cloudy, Urine pH 8.0, Ur Specific [place] 1.015, Urine Protein Negative, Urine Glucose (UA) Negative, Urine Ketones Negative, Urine Blood Negative, Urine Nitrate Negative, Urine Bilirubin Negative, Urine Urobilinogen 0.2, Ur Leukocyte Esterase Negative, Urine RBC None, Urine WBC Occasional, Ur Squamous Epith Cells Occasional, Amorphous Sediment 1+, Urine Bacteria Trace 08/17/23 02:36 08/17/23 02:36 Orders (Tests/Meds): ED MEDICATIONS Generic Name Dose Route Start Last Admin Trade Name Freq PRN Reason Stop Dose Admin Sodium Chloride 10 ml 08/17/23 02:56 Sodium Chloride 0.9% 10ml Flush Syringe IV 09/16/23 02:55 NEEDED PRN Maintain IV Site Discontinued Medications Generic Name Dose Route Start Last Admin Trade Name Freq PRN Reason Stop Dose Admin Acetaminophen 1,000 mg 08/17/23 02:56 08/17/23 03:12 Acetaminophen 500mg Tab PO 08/17/23 02:57 1,000 mg ONCE ONE Administration Diazepam 10 mg 08/17/23 02:59 08/17/23 03:09 Diazepam 10mg Tablet PO 08/17/23 03:00 Not Given ONCE ONE Diazepam 10 mg 08/17/23 03:05 08/17/23 03:12 Diazepam 5mg Tablet PO 08/17/23 03:06 10 mg ONCE ONE Administration Lactated Ringer's 1,000 mls @ 999 mls/hr 08/17/23 03:00 08/17/23 03:11 Lactated Ringer's 1000 Ml Bag IV 08/17/23 04:00 999 mls/hr .Q1H1M IKRAN Administration Ketorolac Tromethamine 30 mg 08/17/23 02:56 08/17/23 03:12 Ketorolac 30mg/Ml Vial IV 08/17/23 02:57 30 mg ONCE ONE Administration Potassium Chloride 40 meq 08/17/23 03:23 08/17/23 03:57 Potassium Chloride 20meq Tab PO 08/17/23 03:24 40 meq ONCE ONE Administration Prochlorperazine Edisylate 10 mg 08/17/23 02:56 08/17/23 03:12 Prochlorperazine 10mg/2ml Vial IV 08/17/23 02:57 10 mg ONCE ONE Administration ORDERS Category Date Time Status CT head/brain wo con Stat Cat Scan 08/17/23 02:56 Completed CBC w/Auto Diff [Complete Blood Count Auto Diff] Stat Lab 08/17/23 02:36 Completed CMP [Comprehensive Metabolic Panel] Stat Lab 08/17/23 02:36 Completed HCG Qualitative, Serum Stat Lab 08/17/23 02:36 Completed UA [Urinalysis and Microscopic] Stat Lab 08/17/23 03:44 Completed Medical Decision Narrative: 48-year-old female with history of pseudoseizures, PTSD, OCD, anxiety, chronic pain presents with concern for unwitnessed seizure at home. Patient called EMS after she woke up confused. Also reports she has been more dizzy over the last few days. History was obtained via conversation with patient, EMS. On arrival, patient is [afebrile, hemodynamically stable, satting appropriately, alert, oriented x4, GCS 15], moving all extremities spontaneously. Full physical exam performed and significant for no significant physical exam abnormalities, no evidence of trauma. Differential includes but is not limited to pseudoseizure, seizure, migraine, tension headache, head trauma, concussion, panic attack Patient was given 1 L fluid bolus, Tylenol, Toradol, Compazine, Valium for symptomatic management of headache and anxiety and correction of underlying abnormalities. Workup initiated including CBC CMP UA CT head without contrast. On re-evaluation, patient [remains afebrile, HD stable.] Patient reports improvement in headache and dizziness. No further spells. Laboratory workup independently interpreted by me and significant for minimal hypokalemia, repleted orally with 40 mill equivalents of potassium. No leukocytosis, normal blood sugar, urine without evidence of infection. Imaging independently interpreted by me and significant for CT head without focal mass lesion, bleeding or stroke. See radiology read for full review of final results. Given patient history, exam and workup, patient's presentation most likely represents nonepileptic spells and exacerbation of patient's anxiety. These findings were communicated with patient. She was discharged in stable condition. Return precautions given. Procedures Risk/Benefits of Procedure(s) Were Explained: Yes Critical Care Critical Care Time Critical Care Time: No
--- NOTE | 2023-08-17 03:21 | PC.NURSE ---
patient gone to CT at this time.
[2023-08-17 03:45] VITALS: BP 109/41; PULSE 85; O2SAT 97
[2023-08-17 03:47] LABS: Microscopic, Urine URINE MICROSCOPIC (MICROSCOPIC)
[2023-08-17 03:49] LABS: Appearance,Urine SL CLOUDY (Clear); Bilirubin,Urine Negative (Negative); Blood, Urine Negative (Negative); Color,Urine YELLOW (Yellow); Glucose,Urine (UA) Negative (Negative); Ketones,Urine Negative (Negative); Leukocyte Esterase,Urine Negative (Negative); Nitrate,Urine Negative (Negative); Protein,Urine Negative (Negative); Specific Gravity, Urine 1.015 (1.005-1.030); Urobilinogen,Urine 0.2 EU/dl (0.2)
[2023-08-17] MEDS: POTASSIUM CHLORIDE 20MEQ TAB 40 MEQ PO (03:57)
[2023-08-17 04:00] VITALS: BP 130/73; PULSE 83; O2SAT 98
[2023-08-17 04:07] LABS: Amorphous Sediment,Urine 1+ /lpf; Bacteria,Urine Trace /lpf; Squamous Epithelial Cell,Urine Occasional #/hpf (0-5); WBC,Urine Occasional #/hpf (0-3)
--- NOTE | 2023-08-17 04:29 | PC.NURSE ---
in room talking with patient at this time.
[2023-08-17 04:38] VITALS: BP 134/72; PULSE 81; RESP 18; TEMP 36.8; O2SAT 98
== END 2023-08-17 04:39 | disposition home or self-care (01) ==
PROVIDERS: Emergency Provider Emergency Medicine; PCP Internal Medicine
DX: E87.6 Hypokalemia (principal); R42 Dizziness and giddiness; F41.1 Generalized anxiety disorder; R40.4 Transient alteration of awareness
CPT/HCPCS: 70450; 80053; 81001; 84703; 85025; 96361; 96374; 96375; 99284

== ENCOUNTER 2023-08-21 13:25 | Outpatient (CLI) | payer OTHER, SELFPAY ==
[2023-08-21 12:29] LABS: Coronavirus 19, PCR Not Detected (NotDetected); Influenza A, PCR Not Detected (NotDetected); Influenza B, PCR Not Detected (NotDetected)
== END 2023-08-21 23:59 ==
LOC: LAB.DROPOF 13:25
PROVIDERS: PCP Internal Medicine; Visit Provider Internal Medicine
DX: R05.8 Other specified cough (principal); R09.81 Nasal congestion
CPT/HCPCS: 87636

== ENCOUNTER 2023-09-02 10:46 | Day surgery (SDC) | payer OTHER, SELFPAY ==
[2023-09-02 11:12] VITALS: BP 121/77; PULSE 81; RESP 18; O2SAT 98; BMI 24.0
[2023-09-02 11:50] VITALS: BP 119/63; PULSE 66; RESP 18; O2SAT 98
[2023-09-02] MEDS: IOPAMIDOL-200 (41%);10ML VIAL 10 ML IV (11:56)
--- NOTE | 2023-09-02 12:09 | EXP.PAIN.PRO ---
Procedure Date: 09/02/23 Time: 11:45 Anesthesiologist:: Jacoby Claros CRNA Complications:: None Pre-procedure Diagnosis:: Degenerative disc lumbar spine multilevels. Disc bulge at L5-S1. Lumbar radiculopathy. Post-procedure Diagnosis:: Same. Indications for Procedure:: Patient is a very pleasant 48-year-old female comes our clinic today for a left transforaminal epidural steroid injection L4-5 and L5-S1 level. Patient describes left hip and leg radicular symptoms associate with low back pain. She rates her pain 7/10. Procedure Details:: Details of the procedure were explained to the patient. The patient was taken the procedure room placed in the prone position. The area of the lumbar spine was cleansed using chlorhexidine as a cleansing solution. At this time using fluoroscopy guidance markers were placed on the left lateral border of the L4 and L5 vertebral body. The skin and subcutaneous tissue was anesthetized using 1% lidocaine and 25-gauge needle. At this time using a 22-gauge 3-1/2 inch spinal needle the left upper one third of the L4-5 foramen was accessed. The same was done at the left L5-S1 foramen. Needle positions were confirmed and a lateral view using fluoroscopy and contrast dye. At this time 1 cc of 1% lidocaine +20 mg of Depo-Medrol was injected at each level after negative aspiration. [place] were removed. Band-Aid applied. Patient tolerated the procedure without difficulty. There are no complications. Plan and Disposition:: Patient was discharged without incident.
[2023-09-02] MEDS: LIDOCAINE 1% 5ML PF VIAL 5 ML (14:29)
[2023-09-02 14:30] VITALS: BP 127/94; PULSE 70; RESP 18; O2SAT 100
[2023-09-02 14:31] VITALS: BP 127/94; PULSE 70; RESP 18; O2SAT 100
== END 2023-09-02 11:50 | disposition home or self-care (01) ==
PROVIDERS: PCP Internal Medicine; Visit Provider Nurse Anesthetist, Certified Registered
DX: M51.16 Intervertebral disc disorders with radiculopathy, lumbar region (principal); M51.26 Other intervertebral disc displacement, lumbar region
CPT/HCPCS: 64483; 64484; J1030; Q9966

== ENCOUNTER 2023-09-17 13:10 | Outpatient (POV) | payer OTHER, SELFPAY ==
[2023-09-17 13:19] VITALS: BP 107/51; PULSE 80; RESP 18; O2SAT 98; BMI 24.7
--- NOTE | 2023-09-17 13:26 | A.OFFVIS_ITS ---
[facility] Pain Management SOAP Note Subjective:: This is a 59 female who presents today for follow-up of left transforaminal epidural steroid injection L4-L5 and L5-S1 on 09/02/2023. She is currently treating the patient for degenerative disc disease of lumbar spine with lumbar radiculopathy symptoms, left leg pain, chronic low back pain, degenerative disc disease of cervical spine with cervical radiculopathy symptoms. Today she rates her pain a 3 out of 10. Patient states she had 100% improvement with this injection lasting approximately 2 weeks. Patient states that she was very active during this time and walks several miles from her home to the [employer] store and even restaurants. Patient states she had overall decreased pain duri ng that time. She states that she felt much more functional than she had for quite some time. She states that she is starting to have worsening pain in the sharp shooting pain down into the left extremity. Patient states that she feels like she may have just overdone it. Patient states that the pain is interfering with her ability perform activities of daily living such as cooking and cleaning and that she still has to change positions frequently due to the worsening pain. Patient does still have tenderness along her mid back too. Patient is currently prescribed diazepam and Orange from her primary care provider. Her Darrius has been reviewed and is appropriate. Review of Systems: General: No recent weight changes, no fever, no sleep disturbances Respiratory: No cough, no shortness of air, no recurring pulmonary infections Cardiovascular/peripheral vascular: No chest pain, no palpitations, no edema, no shortness of breath Gastrointestinal: No new onset incontinence, normal bowel movements reported Genitourinary: No new onset incontinence Musculoskeletal: Low back pain, left leg pain Psychiatric: [Normal mood/affect] Neurological: [Denies weakness in extremities], [denies balance issues] Objective:: Physical Exam: General: Alert and oriented x3, no acute distress, pleasant and cooperative Lungs: Respirations even and unlabored, symmetrical chest expansion Eyes: PERRL Musculoskeletal: Flexion and extension of lumbar [spine] somewhat guarded secondary to pain, [antalgic gait noted] positive left leg raise with decreased sensation to light touch and decreased reflexes Neurological: Speech clear, no gross sensory deficit, extreme point tenderness along T12 vertebra approximately Assessment:: Degenerative disc disease of cervical and lumbar spine with cervical and lumbar radiculopathy symptoms, left leg pain, chronic low back pain, previous cervical ACDF Plan:: Patient did have significant improvement with her first left transforaminal steroid injection. Patient was able to increase her activity and was overall more functional while it was lasting. Patient does have limited range of motion of her lumbar spine today with a positive left leg raise and decreased sensation to light touch and decreased reflexes during today's visit. I have discussed with the patient that she may have overdone it and that she possibly could benefit from a repeat transforaminal injection. Risk and benefits were discussed with the patient and she would like to proceed forward with this plan of care. Patient has tried and failed conservative therapy such as oral medication, heat and ice, topicals, previous physical therapy and at home exercise and stretching for longer than 6 weeks. We will schedule the patient for her second left transforaminal epidural steroid injection L4-L5 and L5-S1 under fluoroscopy. I will also order the patient a compounded cream. Patient has been instructed to contact the clinic with any concerns before the next appointment. Dr. Rubio has reviewed this note and agrees with this plan of care. This note was dictated using voice recognition software and make contain errors or omissions. [facility] Disclaimer: The information contained in this section may have been updated after the patient was seen, as this information can be updated by other users. Medical History Abnormal electrocardiogram [ECG] [EKG] Acute bronchitis Acute pain of left knee Allergic reaction caused by a drug Anxiety Valium prescribed by psychiatrist in [place] Arm pain, left Bronchitis Cervical strain Chronic lumbar pain Complete miscarriage Concussion COPD exacerbation COVID-19 Depression Dyspnea Elbow pain Exposure to COVID-19 virus Fall Fall Functional abdominal pain syndrome Gastroenteritis Generalized seizure Headache Lower extremity pain Lumbar radiculopathy Medication reaction Neck Pain No significant past medical history Pharyngitis Rash and nonspecific skin eruption Seizure Strain of lumbar region Strep pharyngitis Swelling of labia UTI (urinary tract infection) Viral syndrome Vomiting Surgical History H/O cervical spine surgery H/O: History of appendectomy History of D&C History of kidney surgery History of partial hysterectomy Family History Other Cancer Diabetes Heart attack Hypertension Stroke Social History Smoking Status: Never smoker alcohol intake: never substance use type: denies use current occupational status: disabled Travel in the last 8 weeks: None household members: none housing: other
== END 2023-09-17 23:59 ==
LOC: SC.PAIN 13:11
PROVIDERS: PCP Internal Medicine; Visit Provider Nurse Practitioner Family
DX: M51.16 Intervertebral disc disorders with radiculopathy, lumbar region (principal); M50.10 Cervical disc disorder with radiculopathy, unspecified cervical region; M79.605 Pain in left leg; G89.29 Other chronic pain; M54.50 Low back pain, unspecified
CPT/HCPCS: 99212; G0463

== ENCOUNTER 2023-10-14 10:09 | Day surgery (SDC) | payer OTHER, SELFPAY ==
[2023-10-14 10:22] VITALS: BP 145/79; PULSE 66; RESP 16; O2SAT 98; BMI 25.0
--- NOTE | 2023-10-14 10:54 | P.PCN_ITS ---
Procedure Date: 10/14/23 Time: 10:45 Anesthesiologist:: Jacoby Claros CRNA Complications:: None Pre-procedure Diagnosis:: Degenerative disc lumbar spine multilevels. Lumbar radiculopathy Post-procedure Diagnosis:: Same. Indications for Procedure:: Patient is a very pleasant 48-year-old female comes our clinic today for a left L4-5, L5-S1 transforaminal epidural steroid injection. Patient responded very well for 2 to 3 weeks following same injection on 09/02/2023. Patient reports she essentially had no pain for 2 weeks. After which time the pain began to return. Patient reports low lumbar left back pain as well as left hip and leg radicular symptoms to the foot. She rates her pain today 6/10. Procedure Details:: Details of the procedure were explained to the patient. The patient was taken the procedure room placed in the prone position. The area of the lumbar spine was cleansed using chlorhexidine as a cleansing solution. At this time using fluoroscopy guidance markers were placed on the left lateral border of the L4 and L5 vertebral body. The skin and subcutaneous tissue was anesthetized using 1% lidocaine and 25-gauge needle. At this time using a 22-gauge 3-1/2 inch spinal needle the left upper one third of the L4-5 foramen was accessed. The same was done at the left L5-S1 foramen. Needle positions were confirmed and a lateral view using fluoroscopy and contrast dye. At this time 1 cc of 1% lidocaine +20 mg of Depo-Medrol was injected at each level after negative aspiration. Winfred were removed. Band-Aid applied. Patient tolerated the procedure without difficulty. There are no complications. Plan and Disposition:: Patient was discharged without incident.
[2023-10-14 10:55] VITALS: BP 128/50; PULSE 73; RESP 18; O2SAT 97
[2023-10-14] MEDS: methylPREDNISolone ACETATE 80MG/ML VIAL 80 MG (10:55)
[2023-10-14] MEDS: LIDOCAINE 1% 5ML PF VIAL 5 ML (10:55)
[2023-10-14 10:57] VITALS: BP 128/50; PULSE 73; RESP 18; O2SAT 97
[2023-10-14 11:04] VITALS: BP 134/77; PULSE 68; RESP 18; O2SAT 98
[2023-10-14] MEDS: IOPAMIDOL-200 (41%);10ML VIAL 2 ML IV (11:09)
== END 2023-10-14 11:04 | disposition home or self-care (01) ==
PROVIDERS: PCP Internal Medicine; Visit Provider Nurse Anesthetist, Certified Registered
DX: M51.16 Intervertebral disc disorders with radiculopathy, lumbar region (principal)
CPT/HCPCS: 64483; 64484; J1010; Q9966

== ENCOUNTER 2023-11-21 09:46 | Outpatient (POV) | payer OTHER, SELFPAY ==
[2023-11-21 10:21] VITALS: BP 114/62; PULSE 80; RESP 18; O2SAT 95; BMI 25.3
--- NOTE | 2023-11-21 11:02 | EXP.PAIN.SOA ---
[facility] [place] Pain Management SOAP Note Subjective:: Patient is a pleasant 48-year-old female who presents today for follow-up of her second left transforaminal L4-L5 L5-S1 on 10/14/2023. Patient does state that again she had really good relief with upwards of 80% and lasted about 2 weeks however she is back to her baseline today. She states her pain. I 4 out of 10. Patient states that she has not had any new injuries or traumas however she is having a lot more pain in her right elbow. Patient states that she did have tennis elbow along the left side years ago and ended up getting injections that helps however she has not done anything for her right and it is starting to cause worsening pain. She describes it as an aching, throbbing sensation with sharp shooting pains that interfere with her ability perform activities of daily living such as cooking and cleaning. Patient states she is interested in any help we may be able to provide and is agreeable to injections. Patient does also state that she feels like she was scheduled for a lumbar MRI but that she may have missed this appointment. Patient is prescribed diazepam and [place] from her PCP. She is prescribed compounded cream from our office and she does state that this is helping and at least decreases the severity of some of her pains. Her Darrius has been reviewed and is appropriate. Review of Systems: General: No recent weight changes, no fever, no sleep disturbances Respiratory: No cough, no shortness of air, no recurring pulmonary infections Cardiovascular/peripheral vascular: No chest pain, no palpitations, no edema, no shortness of breath Gastrointestinal: No new onset incontinence, normal bowel movements reported Genitourinary: No new onset incontinence Musculoskeletal: Right elbow pain Psychiatric: [Normal mood/affect] Neurological: [Denies weakness in extremities], [denies balance issues] Objective:: Physical Exam: General: Alert and oriented x3, no acute distress, pleasant and cooperative Lungs: Respirations even and unlabored, symmetrical chest expansion Eyes: PERRL Musculoskeletal: Flexion and extension of right elbow somewhat guarded secondary to pain, point tenderness along lateral epicondyle right-sided [antalgic gait noted] Neurological: Speech clear, no gross sensory deficit Assessment:: 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 I have discussed with the patient that she may benefit from right lateral epicondyle joint injection. Risk and benefits were discussed with the patient and she would like to proceed forward with this plan of care. Patient has tried and failed conservative therapy including continued exercise between injections. I will also resubmit for a lumbar MRI without contrast due to her missing her last appointment for this. Patient will be scheduled for a right lateral epicondyle joint injection. Patient has been instructed to contact the clinic with any concerns before the next appointment. Dr. Rubio has reviewed this note and agrees with this plan of care. This note was dictated using voice recognition software and make contain errors or omissions. [facility] Disclaimer: The information contained in this section may have been updated after the patient was seen, as this information can be updated by other users. Medical History Abnormal electrocardiogram [ECG] [EKG] Dyspnea Depression Strep pharyngitis Complete miscarriage Acute pain of left knee Arm pain, left Fall Swelling of labia Allergic reaction caused by a drug UTI (urinary tract infection) No significant past medical history Rash and nonspecific skin eruption Generalized seizure COVID-19 Vomiting Headache Gastroenteritis Pharyngitis Exposure to COVID-19 virus Viral syndrome Chronic lumbar pain COPD exacerbation Lumbar radiculopathy Strain of lumbar region Concussion Fall Seizure Medication reaction Lower extremity pain Functional abdominal pain syndrome Neck Pain Elbow pain Anxiety Valium prescribed by psychiatrist in [place] Cervical strain Acute bronchitis Bronchitis Surgical History History of kidney surgery History of D&C H/O: History of appendectomy History of partial hysterectomy H/O cervical spine surgery Family History Other Cancer Diabetes Heart attack Hypertension Stroke Social History Smoking Status: Former smoker tobacco type: cigarettes alcohol intake: never substance use type: denies use current occupational status: other Travel in the last 8 weeks: None household members: none housing: other
== END 2023-11-21 23:59 | disposition home or self-care (01) ==
LOC: SC.PAIN 09:47
PROVIDERS: PCP Internal Medicine; Visit Provider Nurse Practitioner Family
DX: M50.10 Cervical disc disorder with radiculopathy, unspecified cervical region (principal); M51.16 Intervertebral disc disorders with radiculopathy, lumbar region; M79.605 Pain in left leg; G89.4 Chronic pain syndrome; Z98.1 Arthrodesis status; M77.11 Lateral epicondylitis, right elbow
CPT/HCPCS: 99212; G0463

== ENCOUNTER 2023-11-21 10:30 | Emergency (ER) | payer OTHER, SELFPAY ==
[2023-11-21] VITALS (7 sets, daily range): BP systolic 104–159; BP diastolic 67–142; PULSE 69–84; RESP 13–16; TEMP 36.7–36.8; O2SAT 95–100; BMI 25.3
--- NOTE | 2023-11-21 10:38 | PC.NURSE ---
in room talking with patient at this time.
--- NOTE | 2023-11-21 10:43 | PC.NURSE ---
DR MANCIA AT BEDSIDE
--- NOTE | 2023-11-21 10:51 | XR_ITS ---
FINAL REPORT TECHNIQUE: Chest PA & Lateral CLINICAL HISTORY: concern for pneumonia, soa productive cough x 3 weeks COMPARISON: 04/05/2022 FINDINGS: 2 views of the chest were performed. The heart size is normal. The mediastinum is within normal limits. There is no acute cardiopulmonary process. There are no pleural effusions. There is no pneumothorax. Cervical fusion hardware is noted in the lower cervical spine. IMPRESSION: No acute cardiopulmonary process. Reviewed, Interpreted and Dictated by Nader De La Fuente MD Transcribed by Cinthia White Authenticated and [facility]
[2023-11-21] MEDS: DEXAMETHASONE 4MG TABLET 10 MG PO (10:57)
[2023-11-21] MEDS: IPRATROPIUM/ALBUTEROL 3 ML NEB 6 ML IH (10:58)
--- NOTE | 2023-11-21 11:09 | ED_ITS ---
Discharge Plan Disposition Patient Disposition: Home, Self-Care Prescriptions Prescriptions: New budesonide-formoterol 160-4.5 mcg/actuation HFA aerosol inhaler 1 inh inhalation BID Qty: 10.2 2RF prednisone 20 mg tablet 40 mg PO DAILY 5 Days Qty: 10 0RF ipratropium-albuterol 0.5 mg-3 mg(2.5 mg base)/3 mL solution for nebulization 3 ml inhalation Q6H PRN (Reason: wheezing) Qty: 180 1RF No Action diazepam 10 mg tablet 10 mg PO QHS Patient Comments: TAKE ONE TABLET BY MOUTH EVERY DAY AT BEDTIME MAY CAUSE DROWSINESS desvenlafaxine succinate 50 mg tablet extended release 24 hr 50 mg PO DAILY desvenlafaxine succinate 25 mg tablet extended release 24 hr 25 mg PO DAILY Patient Comments: TAKE ONE TABLET BY MOUTH EVERY MORNING quetiapine 100 mg tablet 100 mg PO HS PRN (Reason: as needed) Patient Comments: TAKE ONE TABLET BY MOUTH EVERY DAY AT BEDTIME NEEDED hydrocodone-acetaminophen 10-325 mg tablet 1 tab PO TID 30 Days Qty: 90 0RF hydrocodone-acetaminophen 10-325 mg tablet 1 tab PO Q8H PRN (Reason: pain) Qty: 90 0RF Rx Instructions: To be filled on or after 11/25/23 albuterol sulfate 90 mcg/actuation aerosol powdr breath activated 2 inh inhalation Q6H PRN (Reason: shortness of breath or wheezing) Qty: 1 2RF divalproex 250 mg tablet,delayed release (DR/EC) 500 mg PO HS Qty: 180 0RF Rx Instructions: TAKE TWO TABLETS BY MOUTH EVERY DAY AT BEDTIME FOR seizures meclizine 12.5 mg tablet See Rx Instructions .ROUTE .COMPLEX Qty: 30 0RF Dose Instruction: TAKE ONE TABLET BY MOUTH THREE TIMES DAILY NEEDED FOR dizziness Rx Instructions: TAKE ONE TABLET BY MOUTH THREE TIMES DAILY NEEDED FOR dizziness Referrals Follow up/Referrals: Yousif Garcia DO [Primary Care Provider] - See instructions Harvey Dc MD [Physician] - See instructions Activity Restrictions/Add. Instructions Additional Instructions/Restrictions: Call your family doctor to establish care for this visit to the emergency department and schedule follow-up within 48 hours to ensure improvement. If you have any worsening of your condition or any other concerning signs or symptoms, return to the emergency department or your primary care doctor for further evaluation. Call to schedule an appointment to follow-up with pulmonology. Clinical Impressions Clinical Impression: Mild asthma exacerbation Discharge ED Provider: Yohan Mccormick General Adult HPI General Chief complaint: Upper Respiratory Infection Stated complaint: SOA, cough, chest congestion, pain while cough Time Seen by Provider: 11/21/23 10:38 Mode of Arrival: Ambulatory Source of Information: Patient Limitations: No Limitations Description of Symptoms (Recalled from ER Triage Doc. by RN): pt presents to ED with c/o productive cough, wheezing, shortness of air. pt reports that symptoms have been ongoing for two weeks but today her cough has gotten worse. History of Present Illness HPI narrative: Please note that above description of symptoms, in this electronic medical record under categorization of recalled from ER triage doctor by RN are reflective of an initial nursing assessment, however, is not reflective of my full history and physical exam that was personally taken and clarified. Consequentially, this preceding description of symptoms, which may include the patient's categorized chief complaint in the EMR, do not reflect my personal clinical impression, and the ultimate description of history of present illness and patient stated complaints should be deferred to this section of the note. Unless stated otherwise or congruent with this section of the note, additional signs, symptoms, or incongruence should be interpreted as inaccurate with my clinical impression. Related Data Home Medications Medication Instructions Recorded Confirmed desvenlafaxine succinate 50 mg 50 mg PO DAILY 09/30/22 11/21/23 tablet,extended release 24 hr desvenlafaxine succinate 25 mg 25 mg PO DAILY 03/19/23 11/21/23 tablet,extended release 24 hr diazepam 10 mg tablet 10 mg PO QHS Anxiety 06/10/23 11/21/23 quetiapine 100 mg tablet 100 mg PO HS PRN as needed 10/22/23 11/21/23 Previous Rx's Medication Instructions Recorded albuterol sulfate 90 mcg/actuation 2 inh inhalation Q6H PRN shortness 08/29/23 breath activated powder inhaler of breath or wheezing #1 ea divalproex 250 mg tablet,delayed 500 mg (2 x 250 mg) PO HS #180 tabs 09/05/23 release hydrocodone 10 mg-acetaminophen 1 tab PO Q8H PRN pain #90 tabs 10/22/23 325 mg tablet hydrocodone 10 mg-acetaminophen 1 tab PO TID 30 days #90 tabs 10/22/23 325 mg tablet meclizine 12.5 mg tablet See Rx Instructions .Route 10/29/23 .COMPLEX #30 ea budesonide-formoterol HFA 160 1 inh inhalation BID #10.2 grams 11/21/23 mcg-4.5 mcg/actuation aerosol inhaler ipratropium 0.5 mg-albuterol 3 mg 3 ml inhalation Q6H PRN wheezing 11/21/23 (2.5 mg base)/3 mL nebulization #180 mL soln prednisone 20 mg tablet 40 mg (2 x 20 mg) PO DAILY 5 days 11/21/23 #10 tabs Allergies Allergy/AdvReac Type Severity Reaction Status Date / Time nitrous oxide Allergy Severe Unknown Verified 10/22/23 11:07 allergy reaction codeine [CODEINE] Allergy Unknown Verified 10/22/23 11:07 fluoxetine [From PROZAC] Allergy Unknown Verified 10/22/23 11:07 ibuprofen [IBUPROFEN] Allergy Unknown Verified 10/22/23 11:07 latex [LATEX] Allergy Unknown Verified 10/22/23 11:07 loratadine [From CLARITIN] Allergy Unknown Verified 10/22/23 11:07 magnesium [MAGNESIUM] Allergy Unknown Verified 10/22/23 11:07 nitrofurantoin Allergy Unknown Verified 10/22/23 11:07 [NITROFURANTOIN] oxycodone [OXYCODONE] Allergy Unknown Verified 10/22/23 11:07 risperidone Allergy Unknown Verified 10/22/23 11:07 sumatriptan [SUMATRIPTAN] Allergy Unknown Verified 10/22/23 11:07 tramadol [TRAMADOL] Allergy Unknown Verified 10/22/23 11:07 trazodone [TRAZODONE] Allergy Unknown Altered Verified 10/22/23 11:07 Sense of Taste duloxetine Allergy Verified 10/22/23 11:07 metronidazole [From Flagyl] Allergy Hallucinati Verified 10/22/23 11:07 ons [facility] Disclaimer: The information contained in this section may have been updated after the patient was seen, as this information can be updated by other users. Medical History Abnormal electrocardiogram [ECG] [EKG] Dyspnea Depression Strep pharyngitis Complete miscarriage Acute pain of left knee Arm pain, left Fall Swelling of labia Allergic reaction caused by a drug UTI (urinary tract infection) No significant past medical history Rash and nonspecific skin eruption Generalized seizure COVID-19 Vomiting Headache Gastroenteritis Pharyngitis Exposure to COVID-19 virus Viral syndrome Chronic lumbar pain COPD exacerbation Lumbar radiculopathy Strain of lumbar region Concussion Fall Seizure Medication reaction Lower extremity pain Functional abdominal pain syndrome Neck Pain Elbow pain Anxiety Valium prescribed by psychiatrist in [place] Cervical strain Acute bronchitis Bronchitis Surgical History History of kidney surgery History of D&C H/O: History of appendectomy History of partial hysterectomy H/O cervical spine surgery Family History Other Cancer Diabetes Heart attack Hypertension Stroke Social History Smoking Status: Former smoker tobacco type: cigarettes alcohol intake: never substance use type: denies use current occupational status: other Travel in the last 8 weeks: None household members: none housing: other ROS Obtained: Yes All systems reviewed & no additional complaints except as documented Physical Exam General General appearance: alert and in no apparent distress Head Head exam: atraumatic and normocephalic Eye Eye exam: Present normal appearance, PERRL and EOMI ENT ENT exam: Present mucous membranes moist Neck Neck exam: Present normal inspection, full ROM and trachea midline Respiratory Respiratory exam: Present wheezes (Diffuse, bilateral) and other (Intermittently coughing); Absent respiratory distress, stridor, accessory muscle use or prolonged expiratory phase Cardiovascular Cardiovascular exam: Present regular rate and normal rhythm Abdominal Exam Abdominal exam: Present soft; Absent distention, tenderness, guarding, rebound or rigidity Extremities Exam Extremities exam: Absent edema Neurological Exam Neurological exam: Present alert, oriented X3, CN II-XII intact and normal gait; Absent motor sensory deficit Skin Skin exam: Present warm and dry; Absent diaphoresis or erythema Medical Decision Making Medical Records Medical records reviewed: Yes I reviewed the patient's medical records. Darrius Inquiry Pt receiving controlled substance: No Darrius was queried for this patient: No Vital Signs: 11/21/23 10:31 11/21/23 11:04 11/21/23 11:16 Temperature 98.2 F Temperature Source Oral Pulse Rate 69 72 Pulse Rate [Left Radial] 83 Respiratory Rate 13 Blood Pressure 104/67 L 104/67 L Blood Pressure [Right Arm] 159/142 H Blood Pressure Mean [Right Arm] 147 02 Sat by Pulse Oximetry 96 96 100 Oxygen Delivery Method Room Air 11/21/23 11:30 11/21/23 12:01 11/21/23 12:30 Temperature Temperature Source Pulse Rate 71 84 83 Pulse Rate [Left Radial] Respiratory Rate Blood Pressure 132/75 104/71 L 118/67 Blood Pressure [Right Arm] Blood Pressure Mean [Right Arm] 02 Sat by Pulse Oximetry 100 95 95 Oxygen Delivery Method Orders (Tests/Meds): ED MEDICATIONS Discontinued Medications Generic Name Dose Route Start Last Admin Trade Name Freq PRN Reason Stop Dose Admin Albuterol/Ipratropium 6 ml 11/21/23 10:51 11/21/23 10:58 Ipratropium/Albuterol 3 Ml Neb IH 11/21/23 10:52 6 ml ONCE ONE Administration Dexamethasone 10 mg 11/21/23 10:51 11/21/23 10:57 Dexamethasone 4mg Tablet PO 11/21/23 10:52 10 mg ONCE ONE Administration ORDERS Category Date Time Status CXR 2 view (NOT portable) [XR chest 2V] Stat Exams 11/21/23 10:51 Completed Medical Decision Narrative: 48-year-old female history of asthma not currently smoking presenting with cough and shortness of breath. This is been getting worse for about 2 weeks, over the last 2 or 3 days cough has been productive of yellow sputum. No fevers, but patient has been chilled. No vomiting, chest pain. Patient also states that she has been short of breath, but it feels like her normal asthma exacerbation. Does not have daily inhaler, has as needed nebulizers and albuterol inhaler, which she has been using both of them more frequently. Ran out of her nebulizers. Patient has had multiple viral sick contacts. History was obtained via conversation with patient. On arrival, patient hemodynamically stable, alert, oriented x4, appropriate, GCS 15, moving all extremities spontaneously, pupils equal and reactive to light. Full physical exam performed and s ignificant for intermittent cough. Diffuse bilateral end expiratory wheezes. No increased work of breathing or respiratory distress, saturating appropriately on room air. Differential includes bronchitis, pneumonia, pneumothorax, asthma exacerbation, among others. Patient was given Decadron, DuoNebs for symptomatic management and correction of underlying abnormalities. Workup independently interpreted and significant for no acute cardiopulmonary airspace disease on chest x-ray. Patient placed in observation around 12 PM on 11/20 for medications and reevaluation. Patient was provided DuoNebs, Decadron, while in observation. Chest x-ray negative, patient feeling much better on reevaluation and ready for discharge. I feel this is appropriate. Total observation time 1.5 hours. Conversation was had with patient regarding home-going, combination inhaler sent to pharmacy, pulmonology referral, and nebulizer/oral prednisone for the next 5 days. She is agreeable to this. Because patient at baseline without signs or symptoms of clinical decompensation, deemed appropriate for discharge. Results were relayed to patient who voiced understanding and were agreeable to outpatient management and follow up. I discussed my clinical impression with patient and answered all questions. At this time, the evidence for any other entities in the differential is insufficient to warrant any further testing or ED observation. This was explained as well. Advisory was given that persistent or worsening symptoms require further evaluation. I confirmed the understanding of this discussion. Wad Compressor Operator Adjuster disclaimer Much of this encounter note is an electronic radiology transcriptionist spoken language to printed text. Electronic radiology transcriptionist of the spoken language may permit errors. Although I have reviewed the note, some errors may still exist. Critical Care Critical Care Time Critical Care Time: No
--- NOTE | 2023-11-21 13:25 | PC.NURSE ---
DR MANCIA AT BEDSIDE TO REEVALUATE PT
== END 2023-11-21 13:39 | disposition home or self-care (01) ==
PROVIDERS: Emergency Provider Emergency Medicine; PCP Internal Medicine
DX: J45.901 Unspecified asthma with (acute) exacerbation (principal); R07.1 Chest pain on breathing; Z87.891 Personal history of nicotine dependence
CPT/HCPCS: 71046; 99283

== ENCOUNTER 2023-12-16 10:02 | Day surgery (SDC) | payer OTHER, SELFPAY ==
[2023-12-16 10:17] VITALS: BP 104/49; BP 122/84; PULSE 73; PULSE 74; RESP 18; TEMP 36.7; O2SAT 95; O2SAT 97; BMI 25.7
[2023-12-16] MEDS: LIDOCAINE 1% 5ML PF VIAL 5 ML (10:21)
[2023-12-16] MEDS: BUPIVACAINE 0.25% 10ML INJ 25 MG IJ (10:27)
[2023-12-16] MEDS: methylPREDNISolone ACETATE 80MG/ML VIAL 80 MG (10:27)
--- NOTE | 2023-12-16 10:39 | P.PCN_ITS ---
Procedure Anesthesiologist:: Jacoby Claros CRNA Complications:: None
--- NOTE | 2023-12-16 10:39 | EXP.PAIN.PRO ---
Procedure Anesthesiologist:: Jacoby Claros CRNA Complications:: None
[2023-12-16 10:41] VITALS: BP 106/57; PULSE 65; RESP 18; O2SAT 100
--- NOTE | 2023-12-16 10:46 | P.PCN_ITS ---
Procedure Date: 12/16/23 Time: 10:40 Anesthesiologist:: Jacoby Claros CRNA Complications:: None Pre-procedure Diagnosis:: Right lateral epicondylitis. Chronic right lateral elbow pain. Post-procedure Diagnosis:: Same. 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 She rates her pain 10/10. Patient has difficulty with analytics developer secondary to pain. She has difficulty with flexion and extension of the right wrist. Procedure Details:: Details of the procedure explained to the patient. The patient taken procedure and placed in the sitting position. The over the right lateral elbow was cleaned using chlorhexidine as a cleansing solution. Using a 25-gauge 1 inch needle the right lateral epicondyle was accessed with ease and injected with 1% lidocaine 3 cc +0.25% Marcaine 3 cc and 40 mg of Depo-Medrol. Patient tolerated procedure without difficulty. No complications. Plan and Disposition:: Patient was discharged out incident.
== END 2023-12-16 10:49 | disposition home or self-care (01) ==
PROVIDERS: PCP Nurse Practitioner Family; Visit Provider Nurse Anesthetist, Certified Registered
DX: M77.11 Lateral epicondylitis, right elbow (principal); M25.521 Pain in right elbow; G89.29 Other chronic pain
CPT/HCPCS: 20551; J1010

== ENCOUNTER 2023-12-17 15:32 | Outpatient (CLI) | payer OTHER, SELFPAY ==
--- NOTE | 2023-12-17 15:35 | MR_ITS ---
FINAL REPORT TECHNIQUE: Multiplanar MR without contrast CLINICAL HISTORY: LOW BACK PAIN. SENSITIVE TO TOUCH. LEFT LEG PAIN FINDINGS: Sagittal images show normal vertebral height. Alignment is normal. Marrow signal pattern is unremarkable. L1-2: Unremarkable L2-3: Unremarkable L3-4: Unremarkable L4-5: Unremarkable L5-S1: Small midline annular tear with tiny disc protrusion. No evidence of nerve root compression. Incidental note is made of horseshoe kidney with left hydronephrosis. IMPRESSION: No significant disc protrusion or nerve root compression. Horseshoe kidney with left hydronephrosis. Reviewed, Interpreted and Dictated by Lashae Barlow MD Transcribed by Tari Escamilla Authenticated and [facility]
== END 2023-12-17 23:59 | disposition home or self-care (01) ==
LOC: RAD 15:32
PROVIDERS: PCP Internal Medicine; Visit Provider Nurse Practitioner Family
DX: M54.50 Low back pain, unspecified (principal)
CPT/HCPCS: 72148

== ENCOUNTER 2023-12-25 10:21 | Outpatient (CLI) | payer OTHER, SELFPAY | END 2023-12-25 23:59 | disposition home or self-care (01) | LOC: LAB.DROPOF 12-26 10:22 | PROVIDERS: PCP Nurse Practitioner Family; Visit Provider Nurse Practitioner Family | DX: R30.0 Dysuria (principal) | CPT/HCPCS: 87086 ==

== ENCOUNTER 2024-01-12 14:07 | Outpatient (POV) | payer OTHER, SELFPAY ==
[2024-01-12 15:26] VITALS: BP 119/69; PULSE 68; RESP 18; O2SAT 95; BMI 25.3
--- NOTE | 2024-01-12 15:36 | A.OFFVIS_ITS ---
[facility] Disclaimer: The information contained in this section may have been updated after the patient was seen, as this information can be updated by other users. Medical History (Updated 01/12/24 @ 15:39 by Jyoti Mccoy APRN) Lumbar radiculopathy Dizziness Dizziness Hypokalemia Anxiety Skin lesions Skin lesions, generalized Abnormal electrocardiogram [ECG] [EKG] Dyspnea Depression Strep pharyngitis Complete miscarriage Acute pain of left knee Arm pain, left Fall Swelling of labia Allergic reaction caused by a drug UTI (urinary tract infection) No significant past medical history Rash and nonspecific skin eruption Generalized seizure COVID-19 Vomiting Headache Gastroenteritis Pharyngitis Exposure to COVID-19 virus Viral syndrome Chronic lumbar pain COPD exacerbation Strain of lumbar region Concussion Fall Seizure Medication reaction Lower extremity pain Functional abdominal pain syndrome Neck Pain Elbow pain Anxiety Cervical strain Acute bronchitis Bronchitis Surgical History History of kidney surgery History of D&C H/O: History of appendectomy History of partial hysterectomy H/O cervical spine surgery Family History Other Cancer Diabetes Heart attack Hypertension Stroke Social History Smoking Status: Former smoker tobacco type: cigarettes alcohol intake: never substance use type: denies use current occupational status: other Travel in the last 8 weeks: None household members: none housing: other PM Subjective & Objective Subjective Subjective:: Patient is a pleasant 48-year-old female who presents today for MRI follow-up of her lumbar spine. Today she rates her pain a 3 out of 10 however states with any increased activity will go to a 5 or 6 out of 10. Patient does state that she ended up getting the elbow injection in the past and it did help however today her low back is causing significant pain. She states she has tenderness that does radiate down into her legs with numbness and tingling and interferes with her ability to perform activities of daily living. Patient does state the pain is constant and that she does also have chronic neck pain that has been bothering her a little bit more. Patient has tried [id number] medications along with heat and ice and topicals and is prescribed diazepam and [place] from her primary care. Patient does still use compounded cream with some improvement. Her Darrius has been reviewed and is appropriate. Review of Systems: General: No recent weight changes, no fever, no sleep disturbances Respiratory: No cough, no shortness of air, no recurring pulmonary infections Cardiovascular/peripheral vascular: No chest pain, no palpitations, no edema, no shortness of breath Gastrointestinal: No new onset incontinence, normal bowel movements reported Genitourinary: No new onset incontinence Musculoskeletal: Low back pain, leg pain Psychiatric: [Normal mood/affect] Neurological: [Denies weakness in extremities], [denies balance issues] Pain at rest (0-10 scale): 5 Objective Objective:: Physical Exam: General: Alert and oriented x3, no acute distress, pleasant and cooperative Lungs: Respirations even and unlabored, symmetrical chest expansion Eyes: PERRL Musculoskeletal: Flexion and extension of lumbar [spine] somewhat guarded secondary to pain, [antalgic gait noted] Neurological: Speech clear, no gross sensory deficit Has patient had previous pain injection?: Yes Percent improvement in pain since last injection: 80% epicondyle joint injection Conservative treatment options previously tried: Home exercise plan Length of treatment: Longer than 6 weeks and Prescription medications Length of treatment: Longer than 6 weeks Meds Home Medications and Allergies Home Medications Medication Instructions Recorded Confirmed Type desvenlafaxine succinate 50 mg 50 mg PO DAILY 09/30/22 01/12/24 History tablet,extended release 24 hr desvenlafaxine succinate 25 mg 25 mg PO DAILY 03/19/23 01/12/24 History tablet,extended release 24 hr albuterol sulfate 90 mcg/actuation 2 inh inhalation Q6H PRN shortness 08/29/23 01/12/24 Rx breath activated powder inhaler of breath or wheezing #1 ea quetiapine 100 mg tablet 100 mg PO HS PRN as needed 10/22/23 01/12/24 History meclizine 12.5 mg tablet See Rx Instructions .Route 10/29/23 01/12/24 Rx .COMPLEX #30 ea budesonide-formoterol HFA 160 1 inh inhalation BID #10.2 grams 11/21/23 01/12/24 Rx mcg-4.5 mcg/actuation aerosol inhaler ipratropium 0.5 mg-albuterol 3 mg 3 ml inhalation Q6H PRN wheezing 11/21/23 01/12/24 Rx (2.5 mg base)/3 mL nebulization #180 mL soln divalproex 250 mg tablet,delayed 500 mg (2 x 250 mg) PO HS #180 tabs 12/25/23 01/12/24 Rx release diazepam 10 mg tablet 10 mg PO QHS Anxiety #30 tabs 01/02/24 01/12/24 Rx hydrocodone 10 mg-acetaminophen 1 tab PO TID 30 days #90 tabs 01/02/24 01/12/24 Rx 325 mg tablet New Prescriptions to Start Prescriptions: Allergies Allergy/AdvReac Type Severity Reaction Status Date / Time nitrous oxide Allergy Severe Unknown Verified 12/25/23 13:46 allergy reaction codeine [CODEINE] Allergy Unknown Verified 12/25/23 13:46 fluoxetine [From PROZAC] Allergy Unknown Verified 12/25/23 13:46 ibuprofen [IBUPROFEN] Allergy Unknown Verified 12/25/23 13:46 latex [LATEX] Allergy Unknown Verified 12/25/23 13:46 loratadine [From CLARITIN] Allergy Unknown Verified 12/25/23 13:46 magnesium [MAGNESIUM] Allergy Unknown Verified 12/25/23 13:46 nitrofurantoin Allergy Unknown Verified 12/25/23 13:46 [NITROFURANTOIN] oxycodone [OXYCODONE] Allergy Unknown Verified 12/25/23 13:46 risperidone Allergy Unknown Verified 12/25/23 13:46 sumatriptan [SUMATRIPTAN] Allergy Unknown Verified 12/25/23 13:46 tramadol [TRAMADOL] Allergy Unknown Verified 12/25/23 13:46 trazodone [TRAZODONE] Allergy Unknown Altered Verified 12/25/23 13:46 Sense of Taste duloxetine Allergy Verified 12/25/23 13:46 metronidazole [From Flagyl] Allergy Hallucinati Verified 12/25/23 13:46 ons Assessment and Plan *Assessment and plan (1) Chronic lumbar pain: Status: Acute Qualifiers: Back pain laterality: left Sciatica laterality: sciatica of left side Sciatica presence: with sciatica Qualified Code(s): M54.42 - Lumbago with sciatica, left side; G89.29 - Other chronic pain Category: Medical Code(s): M54.5 - Low back pain; G89.29 - Other chronic pain (2) Chronic pain syndrome: Status: Acute Category: Medical Code(s): G89.4 - Chronic pain syndrome (3) Lumbar radiculopathy: Status: Acute Category: Medical Code(s): M54.16 - Radiculopathy, lumbar region Plan Patient is experiencing significant pain throughout her low back and radiating down into her lower extremities. I did review over the patient's MRI findings that did show she had an L5-S1 annular tear with protruding disc. I have discussed with patient that she may benefit from a lumbar epidural steroid injection at this level. Risk and benefits were discussed with the patient and she would like to proceed forward with this plan of care. Patient has tried and failed conservative therapy including continued exercising and stretching at home between injections for longer than 6 weeks. Patient will be scheduled for a lumbar epidural steroid injection L5-S1 under fluoroscopy. Patient has been instructed to contact the clinic with any concerns before the next appointment. Dr. Rubio has reviewed this note and agrees with this plan of care. This note was dictated using voice recognition software and make contain errors or omissions.
== END 2024-01-12 23:59 | disposition home or self-care (01) ==
LOC: SC.PAIN 14:08
PROVIDERS: PCP Internal Medicine; Visit Provider Nurse Practitioner Family
DX: M54.42 Lumbago with sciatica, left side (principal); G89.4 Chronic pain syndrome; Z87.891 Personal history of nicotine dependence; Z73.89 Other problems related to life management difficulty; Z79.899 Other long term (current) drug therapy
CPT/HCPCS: 99212; G0463

== ENCOUNTER 2024-01-21 14:45 | Outpatient (POV) | payer OTHER, SELFPAY ==
[2024-01-21 15:06] VITALS: BP 132/79; PULSE 79; RESP 18; O2SAT 96; BMI 25.0
--- NOTE | 2024-01-21 15:08 | EXP.PAIN.SOA ---
[facility] Disclaimer: The information contained in this section may have been updated after the patient was seen, as this information can be updated by other users. Medical History (Updated 01/21/24 @ 15:10 by Jyoti Mccoy APRN) Lumbar radiculopathy Dizziness Dizziness Hypokalemia Anxiety Skin lesions Skin lesions, generalized Abnormal electrocardiogram [ECG] [EKG] Dyspnea Depression Strep pharyngitis Complete miscarriage Acute pain of left knee Arm pain, left Fall Swelling of labia Allergic reaction caused by a drug UTI (urinary tract infection) No significant past medical history Rash and nonspecific skin eruption Generalized seizure COVID-19 Vomiting Headache Gastroenteritis Pharyngitis Exposure to COVID-19 virus Viral syndrome Chronic lumbar pain COPD exacerbation Strain of lumbar region Concussion Fall Seizure Medication reaction Lower extremity pain Functional abdominal pain syndrome Neck Pain Elbow pain Anxiety Cervical strain Acute bronchitis Bronchitis Surgical History History of kidney surgery History of D&C H/O: History of appendectomy History of partial hysterectomy H/O cervical spine surgery Family History Other Cancer Diabetes Heart attack Hypertension Stroke Social History Smoking Status: Former smoker tobacco type: cigarettes alcohol intake: never substance use type: denies use current occupational status: other Travel in the last 8 weeks: None household members: none housing: other PM Subjective & Objective Subjective Subjective:: Patient is a pleasant 48-year-old female who presents today for a lumbar epidural denial. Today she rates her pain a 5 out of 10. Patient denies any trauma or injury. She does state that she is still having extreme pain in her low back with radiating symptoms of numbness and tingling into her legs. The pain does interfere with her ability to perform activities of daily living such as cooking and cleaning. Patient still would like to try for this injection as she is continue to do at home stretching exercise for longer than 6 weeks along with oral medications, heat and ice and topicals with no change. Her Darrius has been reviewed and is appropriate. Review of Systems: General: No recent weight changes, no fever, no sleep disturbances Respiratory: No cough, no shortness of air, no recurring pulmonary infections Cardiovascular/peripheral vascular: No chest pain, no palpitations, no edema, no shortness of breath Gastrointestinal: No new onset incontinence, normal bowel movements reported Genitourinary: No new onset incontinence Musculoskeletal: Low back pain, bilateral leg pain Psychiatric: [Normal mood/affect] Neurological: [Denies weakness in extremities], [denies balance issues] Pain at rest (0-10 scale): 5 Objective Objective:: Physical Exam: General: Alert and oriented x3, no acute distress, pleasant and cooperative Lungs: Respirations even and unlabored, symmetrical chest expansion Eyes: PERRL Musculoskeletal: Flexion and extension of lumbar [spine] somewhat guarded secondary to pain, [antalgic gait noted] Neurological: Speech clear, no gross sensory deficit FINDINGS: Sagittal images show normal vertebral height. Alignment is normal. Marrow signal pattern is unremarkable. L1-2: Unremarkable L2-3: Unremarkable L3-4: Unremarkable L4-5: Unremarkable L5-S1: Small midline annular tear with tiny disc protrusion. No evidence of nerve root compression. Incidental note is made of horseshoe kidney with left hydronephrosis. IMPRESSION: No significant disc protrusion or nerve root compression. Horseshoe kidney with left hydronephrosis. Reviewed, Interpreted and Dictated by Lashae Barlow MD Transcribed by Tari Escamilla Authenticated and . [facility] Has patient had previous pain injection?: No Conservative treatment options previously tried: Home exercise plan Length of treatment: Longer than 6 weeks and Prescription medications Length of treatment: Longer than 6 weeks Meds Home Medications and Allergies Home Medications ?Medication ?Instructions ?Recorded ?Confirmed ?Type desvenlafaxine succinate 50 mg 50 mg PO DAILY 09/30/22 01/21/24 History tablet,extended release 24 hr desvenlafaxine succinate 25 mg 25 mg PO DAILY 03/19/23 01/21/24 History tablet,extended release 24 hr albuterol sulfate 90 mcg/actuation 2 inh inhalation Q6H PRN shortness 08/29/23 01/21/24 Rx breath activated powder inhaler of breath or wheezing #1 ea quetiapine 100 mg tablet 100 mg PO HS PRN as needed 10/22/23 01/21/24 History meclizine 12.5 mg tablet See Rx Instructions .Route 10/29/23 01/21/24 Rx .COMPLEX #30 ea budesonide-formoterol HFA 160 1 inh inhalation BID #10.2 grams 11/21/23 01/21/24 Rx mcg-4.5 mcg/actuation aerosol inhaler ipratropium 0.5 mg-albuterol 3 mg 3 ml inhalation Q6H PRN wheezing 11/21/23 01/21/24 Rx (2.5 mg base)/3 mL nebulization #180 mL soln divalproex 250 mg tablet,delayed 500 mg (2 x 250 mg) PO HS #180 tabs 12/25/23 01/21/24 Rx release diazepam 10 mg tablet 10 mg PO QHS Anxiety #30 tabs 01/02/24 01/21/24 Rx hydrocodone 10 mg-acetaminophen 1 tab PO TID 30 days #90 tabs 01/02/24 01/21/24 Rx 325 mg tablet New Prescriptions to Start Prescriptions: Allergies Allergy/AdvReac Type Severity Reaction Status Date / Time nitrous oxide Allergy Severe Unknown Verified 12/25/23 13:46 allergy reaction codeine [CODEINE] Allergy Unknown Verified 12/25/23 13:46 fluoxetine [From PROZAC] Allergy Unknown Verified 12/25/23 13:46 ibuprofen [IBUPROFEN] Allergy Unknown Verified 12/25/23 13:46 latex [LATEX] Allergy Unknown Verified 12/25/23 13:46 loratadine [From CLARITIN] Allergy Unknown Verified 12/25/23 13:46 magnesium [MAGNESIUM] Allergy Unknown Verified 12/25/23 13:46 nitrofurantoin Allergy Unknown Verified 12/25/23 13:46 [NITROFURANTOIN] oxycodone [OXYCODONE] Allergy Unknown Verified 12/25/23 13:46 risperidone Allergy Unknown Verified 12/25/23 13:46 sumatriptan [SUMATRIPTAN] Allergy Unknown Verified 12/25/23 13:46 tramadol [TRAMADOL] Allergy Unknown Verified 12/25/23 13:46 trazodone [TRAZODONE] Allergy Unknown Altered Verified 12/25/23 13:46 Sense of Taste duloxetine Allergy Verified 12/25/23 13:46 metronidazole [From Flagyl] Allergy Hallucinati Verified 12/25/23 13:46 ons Assessment and Plan *Assessment and plan (1) Lumbar radiculopathy: Status: Acute Category: Medical Code(s): M54.16 - Radiculopathy, lumbar region (2) Degenerative disc disease, lumbar: Status: Acute Category: Medical Code(s): M51.36 - Other intervertebral disc degeneration, lumbar region (3) Annular tear of lumbar disc: Status: Acute Category: Medical Code(s): M51.36 - Other intervertebral disc degeneration, lumbar region Plan Patient is still experiencing significant pain throughout her low back and legs with limited range of motion. Patient has numbness and tingling down her extremities as stated in the last note. Patient insurance denial stated that it was missing the following showing numbness and tingling, recent MRI within 24 months, pain not coming from a tumor and to be told what medications are in the injections. All of the prior requirements were in our last note however it did not mention what medications we use. This will consist of lidocaine and Depo-Medrol. I have reviewed over the risk and benefits of this injection and she still would like to proceed forward with this plan of care. Patient has tried and failed conservative therapy including continued at home stretching exercise for longer than 6 weeks. We will resubmit for this injection of the L5-S1 where there is a annular tear and protruding disc and contact the patient once we have approval. This injection will be done under fluoroscopy. Patient has been instructed to contact the clinic with any concerns before the next appointment. Dr. Rubio has reviewed this note and agrees with this plan of care. This note was dictated using voice recognition software and make contain errors or omissions. All injections are used with Lidocaine or Bupivacaine and Depo Medrol.
== END 2024-01-21 23:59 | disposition home or self-care (01) ==
LOC: SC.PAIN 14:46
PROVIDERS: PCP Nurse Practitioner Family; Visit Provider Nurse Practitioner Family
DX: M51.16 Intervertebral disc disorders with radiculopathy, lumbar region (principal); Z87.891 Personal history of nicotine dependence; Z73.89 Other problems related to life management difficulty; Z79.899 Other long term (current) drug therapy
CPT/HCPCS: 99212; G0463

== ENCOUNTER 2024-02-03 12:58 | Day surgery (SDC) | payer OTHER, SELFPAY ==
[2024-02-03 13:31] VITALS: BP 112/70; PULSE 81; RESP 16; TEMP 36.9; O2SAT 96; BMI 25.0
[2024-02-03 13:37] VITALS: BP 119/47; PULSE 82; RESP 18; O2SAT 96
[2024-02-03 13:38] VITALS: BP 119/47; PULSE 82; RESP 18; O2SAT 96
--- NOTE | 2024-02-03 13:38 | EXP.PAIN.PRO ---
Procedure Date: 02/03/24 Time: 13:35 Anesthesiologist:: Jacoby Claros CRNA Complications:: None Pre-procedure Diagnosis:: Degenerative disc lumbar spine multiple levels. Lumbar radiculopathy. Lumbar disc bulge multilevel. Post-procedure Diagnosis:: Same. Indications for Procedure:: Patient is a pleasant 48-year-old female comes her clinic today for repeat lumbar epidural steroid injection at the L5-S1 level. Patient reports significant improvement terms of her overall low back pain as well as bilateral hip and leg radicular symptoms with previous injection at same level. She rates her pain today 6/10. Procedure Details:: Procedure: Lumbar epidural steroid injection under fluoroscopy Informed consent was obtained and the risks and benefits of the procedure were explained to the patient. The patient was taken to the procedure room and noninvasive monitors placed, including noninvasive blood pressure cuff and pulse oximeter. The back was viewed using C-arm Fluoroscopy and prepped using Chloraprep as a cleansing solution and the L5-S1 interspace was palpated. Skin and subcutaneous tissues were anesthetized using lidocaine 1.5% and a 25-gauge needle. After this, an 18-gauge Touhy epidural needle was placed into the L5-S1 interspace and advanced using fluoroscopic guidance and loss of resistance to air until the epidural space was encountered. After confirmation of needle placement in the epidural space, with dye, a solution containing normal saline, 3 mL and Depo-Medrol 80 mg were incrementally injected into the lumbar epidural space. The patient tolerated the procedure well with no complications. The patient was observed in the Pain Clinic and then discharged home neurologically intact. Plan and Disposition:: Patient was discharged without incident.
[2024-02-03 13:40] VITALS: BP 117/54; PULSE 73; RESP 16; O2SAT 96
== END 2024-02-03 13:40 | disposition home or self-care (01) ==
PROVIDERS: PCP Nurse Practitioner Family; Visit Provider Nurse Anesthetist, Certified Registered
DX: M51.16 Intervertebral disc disorders with radiculopathy, lumbar region (principal)
CPT/HCPCS: 62323; J1010

== ENCOUNTER 2024-03-29 10:36 | Outpatient (POV) | payer OTHER, SELFPAY ==
--- NOTE | 2024-03-29 11:25 | EXP.PAIN.SOA ---
[facility] Disclaimer: The information contained in this section may have been updated after the patient was seen, as this information can be updated by other users. Medical History (Updated 03/29/24 @ 11:28 by Jyoti Mccoy APRN) Urinary symptom or sign Lumbar radiculopathy Dizziness Dizziness Hypokalemia Anxiety Skin lesions Skin lesions, generalized Abnormal electrocardiogram [ECG] [EKG] Dyspnea Depression Strep pharyngitis Complete miscarriage Acute pain of left knee Arm pain, left Fall Swelling of labia Allergic reaction caused by a drug UTI (urinary tract infection) No significant past medical history Rash and nonspecific skin eruption Generalized seizure COVID-19 Vomiting Headache Gastroenteritis Pharyngitis Exposure to COVID-19 virus Viral syndrome Chronic lumbar pain COPD exacerbation Strain of lumbar region Concussion Fall Seizure Medication reaction Lower extremity pain Functional abdominal pain syndrome Neck Pain Elbow pain Anxiety Cervical strain Acute bronchitis Bronchitis Surgical History History of kidney surgery History of D&C H/O: History of appendectomy History of partial hysterectomy H/O cervical spine surgery Family History Other Cancer Diabetes Heart attack Hypertension Stroke Social History Smoking Status: Former smoker tobacco type: cigarettes alcohol intake: never substance use type: denies use current occupational status: other Travel in the last 8 weeks: None household members: none housing: other PM Subjective & Objective Subjective Subjective:: Patient is a pleasant 48-year-old female who presents today for follow-up of lumbar epidural steroid injection L5-S1 on 02/03/2024. Today she rates her pain a 5 out of 10 in her neck and upper extremities. Patient does state that the injection did provide at least 50% improvement and that it is still helping overall in her low back. She states it is not as severe and she has been able to move around easier since this injection. Patient does however have more complaints of her neck with numbness and tingling into her upper extremities primarily on the right side. Patient states that she is unsure if she slept funny that could have caused the worsening symptoms however it is constant and interfering with her ability perform activities of daily living such as cooking and cleaning. Patient does state that she is also experiencing worsening elbow pain on the right side. Patient is interested in any help we may be able to provide. Patient does continue to use her at home TENS unit along with a compounded cream and oral medication such as Tylenol and ibuprofen with minimal relief. Patient has tried and failed at home exercising and stretching for longer than 12 weeks. Her Darrius has been reviewed and is appropriate. Review of Systems: General: No recent weight changes, no fever, no sleep disturbances Respiratory: No cough, no shortness of air, no recurring pulmonary infections Cardiovascular/peripheral vascular: No chest pain, no palpitations, no edema, no shortness of breath Gastrointestinal: No new onset incontinence, normal bowel movements reported Genitourinary: No new onset incontinence Musculoskeletal: Neck pain, right elbow pain, bilateral arm pain Psychiatric: [Normal mood/affect] Neurological: [Denies weakness in extremities], [denies balance issues] Pain at rest (0-10 scale): 5 Objective Objective:: Physical Exam: General: Alert and oriented x3, no acute distress, pleasant and cooperative Lungs: Respirations even and unlabored, symmetrical chest expansion Eyes: PERRL Musculoskeletal: Flexion and extension of cervical [spine] somewhat guarded secondary to pain, [antalgic gait noted] positive Spurling's test Neurological: Speech clear, no gross sensory deficit Has patient had previous pain injection?: Yes Percent improvement in pain since last injection: 50% Conservative treatment options previously tried: Home exercise plan Length of treatment: Longer than 12 weeks Meds Home Medications and Allergies Home Medications ?Medication ?Instructions ?Recorded ?Confirmed ?Type desvenlafaxine succinate 50 mg 50 mg PO DAILY 09/30/22 03/02/24 History tablet,extended release 24 hr desvenlafaxine succinate 25 mg 25 mg PO DAILY 03/19/23 03/02/24 History tablet,extended release 24 hr albuterol sulfate 90 mcg/actuation 2 inh inhalation Q6H PRN shortness 08/29/23 03/02/24 Rx breath activated powder inhaler of breath or wheezing #1 ea quetiapine 100 mg tablet 100 mg PO HS PRN as needed 10/22/23 03/02/24 History budesonide-formoterol HFA 160 1 inh inhalation BID #10.2 grams 11/21/23 03/02/24 Rx mcg-4.5 mcg/actuation aerosol inhaler ipratropium 0.5 mg-albuterol 3 mg 3 ml inhalation Q6H PRN wheezing 11/21/23 03/02/24 Rx (2.5 mg base)/3 mL nebulization #180 mL soln divalproex 250 mg tablet,delayed 500 mg (2 x 250 mg) PO HS #180 tabs 12/25/23 03/02/24 Rx release diazepam 10 mg tablet 10 mg PO QHS Anxiety #30 tabs 01/02/24 03/02/24 Rx hydrocodone 10 mg-acetaminophen 1 tab PO TID 30 days #90 tabs 03/02/24 03/02/24 Rx 325 mg tablet meclizine 12.5 mg tablet 6.25 mg PO HS 03/02/24 History rizatriptan 10 mg disintegrating See Rx Instructions PO .COMPLEX 03/02/24 03/02/24 Rx tablet (Maxalt-ADULT [employer]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) #30 tabs New Prescriptions to Start Prescriptions: Allergies Allergy/AdvReac Type Severity Reaction Status Date / Time nitrous oxide Allergy Severe Unknown Verified 03/02/24 11:44 allergy reaction prednisone Allergy Mild shortness Verified 03/02/24 11:47 of breath codeine [CODEINE] Allergy Unknown Verified 03/02/24 11:44 fluoxetine [From PROZAC] Allergy Unknown Verified 03/02/24 11:44 ibuprofen [IBUPROFEN] Allergy Unknown Verified 03/02/24 11:44 latex [LATEX] Allergy Unknown Verified 03/02/24 11:44 loratadine [From CLARITIN] Allergy Unknown Verified 03/02/24 11:44 magnesium [MAGNESIUM] Allergy Unknown Verified 03/02/24 11:44 nitrofurantoin Allergy Unknown Verified 03/02/24 11:44 [NITROFURANTOIN] oxycodone [OXYCODONE] Allergy Unknown Verified 03/02/24 11:44 risperidone Allergy Unknown Verified 03/02/24 11:44 sumatriptan [SUMATRIPTAN] Allergy Unknown Verified 03/02/24 11:44 tramadol [TRAMADOL] Allergy Unknown Verified 03/02/24 11:44 trazodone [TRAZODONE] Allergy Unknown Altered Verified 03/02/24 11:44 Sense of Taste duloxetine Allergy Verified 03/02/24 11:44 metronidazole [From Flagyl] Allergy Hallucinati Verified 03/02/24 11:44 ons Assessment and Plan *Assessment and plan (1) Neck Pain: Status: Chronic Category: Medical Code(s): M54.2 - Cervicalgia (2) Cervical radicular pain: Status: Acute Category: Medical Code(s): M54.12 - Radiculopathy, cervical region (3) Right elbow pain: Status: Acute Category: Medical Code(s): M25.521 - Pain in right elbow Plan Patient is experiencing worsening pain throughout her neck with radiating numbness and tingling into her upper extremities along with worsening right elbow pain. I did discuss with the patient due to her limited range of motion of her cervical spine and positive Spurling's test that she may benefit from a cervical epidural steroid injection. Risk and benefits were discussed with the patient and she would like to proceed forward with this plan of care. Patient has tried and failed conservative therapy including continued up home exercising and stretching for longer than 12 weeks. Patient does also have previous surgery in her neck with hardware in place. I did also discuss with the patient due to her worsening elbow pain that I will send her for referral to Dr. Mandeep Mccoy's office. Patient agrees with this plan of care. Patient will be scheduled for a ROMA C5-C6 under fluoroscopy. Patient has been instructed to contact the clinic with any concerns before the next appointment. Dr. Rubio has reviewed this note and agrees with this plan of care. This note was dictated using voice recognition software and make contain errors or omissions. All injections are used with Lidocaine or Bupivacaine and Depo Medrol.
[2024-03-29 13:29] VITALS: BP 122/70; PULSE 68; RESP 16; O2SAT 96; BMI 26.0
== END 2024-03-29 23:59 | disposition home or self-care (01) ==
LOC: SC.PAIN 10:37
PROVIDERS: PCP Nurse Practitioner Family; Visit Provider Nurse Practitioner Family
DX: M54.2 Cervicalgia (principal); M54.12 Radiculopathy, cervical region; M25.521 Pain in right elbow; Z73.89 Other problems related to life management difficulty; Z87.891 Personal history of nicotine dependence
CPT/HCPCS: 99212; G0463

== ENCOUNTER 2024-04-05 10:05 | Outpatient (CLI) | payer OTHER, SELFPAY ==
--- NOTE | 2024-04-05 10:10 | XR_ITS ---
FINAL REPORT CLINICAL HISTORY: right elbow pain COMPARISON: None FINDINGS: RIGHT ELBOW: 3 images of the right elbow were obtained. There is no evidence of fracture or dislocation. Mild degenerative changes present. There is no soft tissue abnormality identified. IMPRESSION: Mild degenerative change, with no acute bony abnormality. Reviewed, Interpreted and Dictated by Bladimir Cobb III, MD Transcribed by Melinda Russ Authenticated and [facility]
== END 2024-04-05 23:59 | disposition home or self-care (01) ==
LOC: RAD 10:06
PROVIDERS: PCP Nurse Practitioner Family; Visit Provider Orthopaedic Surgery
DX: M25.521 Pain in right elbow (principal)
CPT/HCPCS: 73080

== ENCOUNTER 2024-04-27 13:30 | Day surgery (SDC) | payer OTHER, SELFPAY ==
[2024-04-27 13:36] VITALS: BP 132/66; PULSE 70; RESP 16; TEMP 36.6; O2SAT 96; BMI 36.5
[2024-04-27] MEDS: IOPAMIDOL-200 (41%);10ML VIAL 10 ML IV (13:52)
[2024-04-27] MEDS: methylPREDNISolone ACETATE 80MG/ML VIAL 80 MG (14:01)
--- NOTE | 2024-04-27 14:02 | P.PCN_ITS ---
Procedure Date: 04/27/24 Time: 14:00 Anesthesiologist:: Jacoby Claros CRNA Complications:: None Pre-procedure Diagnosis:: Degenerative disc cervical spine multilevels. Cervical radiculopathy. Cervical postlaminectomy syndrome. Post-procedure Diagnosis:: Same. Indications for Procedure:: Patient is a very pleasant 48-year-old female who comes our clinic today for cervical epidural steroid injection. Patient describes posterior cervical neck pain as well as bilateral arm radicular symptoms at times. Patient is status post anterior cervical discectomy and fusion in the past. She rates her pain today 01/06. Procedure Details:: Procedure:Cervical epidural steroid injection Informed consent was obtained and the risks and benefits of the procedure were explained to the patient. The patient was taken to the procedure room and noninvasive monitors placed, including noninvasive blood pressure cuff and pulse oximeter. The neck was prepped using Chloraprep as a cleansing solution. The C6- C7 interspace was viewed using fluroscopy. The skin and subcutaneous tissues were anesthetized using lidocaine 1.5% and a 25-gauge needle. After this an 18- gauge Touhy epidural needle was placed into the C6-C7 interspace under fluroscopy guidance and advanced using loss of resistance to air until the epidural space was encountered. After confirmation of needle placement in the epidural space using contrast dye, a solution containing normal saline, 2 mL and Depo-Medrol 80 mg was incrementally injected into the cervical epidural space.~ The patient tolerated the procedure well with no complications. The patient was observed in the Pain Clinic and then discharged home neurologically intact. Plan and Disposition:: Patient was discharged without incident.
[2024-04-27 14:14] VITALS: BP 106/52; PULSE 73; RESP 16; O2SAT 97
== END 2024-04-27 14:14 | disposition home or self-care (01) ==
PROVIDERS: PCP Nurse Practitioner Family; Visit Provider Nurse Anesthetist, Certified Registered
DX: M50.30 Other cervical disc degeneration, unspecified cervical region (principal); M54.12 Radiculopathy, cervical region; M96.1 Postlaminectomy syndrome, not elsewhere classified
CPT/HCPCS: 62321; J1010; Q9966

== ENCOUNTER 2024-04-29 15:21 | Outpatient (CLI) | payer OTHER, SELFPAY ==
--- NOTE | 2024-04-29 15:24 | XR_ITS ---
PROCEDURE INFORMATION: Exam: XR Cervical Spine Exam date and time: 04/29/2024 4:02 PM Age: 48 years old Clinical indication: Neck pain; Additional info: Neck pain, fall TECHNIQUE: Imaging protocol: Radiologic exam of the cervical spine. Views: 4 or 5 views. COMPARISON: CR XR MULTIPLE SPINE 6+V 08/13/2023 4:10 PM FINDINGS: Bones/joints: Status post anterior fusion at C6-C7. Mature fusion at C5-C6 is noted. No acute fracture or subluxation. There is no evidence for dynamic instability on flexion and extension views. Soft tissues: Unremarkable. Other findings: Prevertebral and paravertebral soft tissues appear unremarkable. IMPRESSION: Postsurgical changes without acute injury identified.
--- NOTE | 2024-04-29 15:24 | XR_ITS ---
PROCEDURE INFORMATION: Exam: XR Thoracic Spine Exam date and time: 04/29/2024 4:02 PM Age: 48 years old Clinical indication: Pain in thoracic spine; Additional info: Back pain, fall TECHNIQUE: Imaging protocol: Radiologic exam of the thoracic spine. Views: 3 views. COMPARISON: CR XR MULTIPLE SPINE 6+V 08/13/2023 4:10 PM FINDINGS: Bones/joints: There is a very slight levocurvature of the upper thoracic spine which appear stable from prior. Vertebral alignment is otherwise within normal limits without evidence of subluxation or spondylolisthesis. No evidence of vertebral body compression fractures, lytic or sclerotic lesions. Intervertebral disc spaces are preserved and within normal limits for patient's age. Facet joints are in normal configuration without signs of arthrosis or effusion. Soft tissues: Paravertebral soft tissues appear unremarkable. Other findings: Prevertebral and paravertebral soft tissues appear unremarkable. IMPRESSION: No radiographic evidence for acute spinal abnormality.
== END 2024-04-29 23:59 | disposition home or self-care (01) ==
LOC: RAD 15:21
PROVIDERS: PCP Nurse Practitioner Family; Visit Provider Nurse Practitioner Family
DX: M54.2 Cervicalgia (principal); W19.XXXA Unspecified fall, initial encounter
CPT/HCPCS: 72052; 72072

== ENCOUNTER 2024-05-06 13:08 | Outpatient (POV) | payer OTHER, SELFPAY ==
--- NOTE | 2024-05-06 14:01 | EXP.PAIN.SOA ---
[facility] Disclaimer: The information contained in this section may have been updated after the patient was seen, as this information can be updated by other users. Medical History (Updated 04/29/24 @ 15:08 by Bhumi Cohen APRN) Fall Urinary symptom or sign Lumbar radiculopathy Dizziness Dizziness Hypokalemia Anxiety Skin lesions Skin lesions, generalized Abnormal electrocardiogram [ECG] [EKG] Dyspnea Depression Strep pharyngitis Complete miscarriage Acute pain of left knee Arm pain, left Swelling of labia Allergic reaction caused by a drug UTI (urinary tract infection) No significant past medical history Rash and nonspecific skin eruption Generalized seizure COVID-19 Vomiting Headache Gastroenteritis Pharyngitis Exposure to COVID-19 virus Viral syndrome Chronic lumbar pain COPD exacerbation Strain of lumbar region Concussion Fall Seizure Medication reaction Lower extremity pain Functional abdominal pain syndrome Neck Pain Elbow pain Anxiety Cervical strain Acute bronchitis Bronchitis Surgical History History of kidney surgery History of D&C H/O: History of appendectomy History of partial hysterectomy H/O cervical spine surgery Family History Other Cancer Diabetes Heart attack Hypertension Stroke Social History Smoking Status: Former smoker tobacco type: cigarettes alcohol intake: never substance use type: denies use current occupational status: other Travel in the last 8 weeks: None household members: none housing: other PM Subjective & Objective Subjective Subjective:: Patient is a pleasant 48-year-old female who presents today for follow-up of cervical epidural steroid injection C6-C7 on 04/27/2024. Today she rates her pain a 5 out of 10. Patient states that the cervical epidural provided no improvement however made her symptoms worse. She states that she was very sore. Patient states from our last visit as well she did end up tripping at home and ended up falling and hitting her low back and hip area. She states that this was less than 2 weeks ago and she is still very sore. She states she did come to the ER for evaluation. Patient states that she is experiencing worsening pain in her low back and legs that does radiate all the way down with numbness and tingling. Patient does state that it is interfering with her ability perform activities of daily living such as cooking and cleaning. Patient did previously have a lumbar epidural steroid injection L5-S1 on 02/03/2024 that did provide more than 50% improvement and lasted up until about her fall. Patient does state that she would like to see about getting this repeated due to the worsening pain and decreased function. Patient has continued at home exercising and stretching for longer than 12 weeks with no additional improvement. Patient does state that she is still using lidocaine patches and her TENS unit at home for temporary relief. She does state that she did end up seeing the specialist for her elbows and that they were recommending physical therapy which she is in currently. Her Darrius has been reviewed and is appropriate. Review of Systems: General: No recent weight changes, no fever, no sleep disturbances Respiratory: No cough, no shortness of air, no recurring pulmonary infections Cardiovascular/peripheral vascular: No chest pain, no palpitations, no edema, no shortness of breath Gastrointestinal: No new onset incontinence, normal bowel movements reported Genitourinary: No new onset incontinence Musculoskeletal: Low back pain, leg pain Psychiatric: [Normal mood/affect] Neurological: [Denies weakness in extremities], [denies balance issues] Pain at rest (0-10 scale): 5 Objective Objective:: Physical Exam: General: Alert and oriented x3, no acute distress, pleasant and cooperative Lungs: Respirations even and unlabored, symmetrical chest expansion Eyes: PERRL Musculoskeletal: Flexion and extension of lumbar [spine] somewhat guarded secondary to pain, [antalgic gait noted] Neurological: Speech clear, no gross sensory deficit Has patient had previous pain injection?: Yes Percent improvement in pain since last injection: Minimal Conservative treatment options previously tried: Home exercise plan Length of treatment: Longer than 12 weeks Meds Home Medications and Allergies Home Medications ?Medication ?Instructions ?Recorded ?Confirmed ?Type desvenlafaxine succinate 50 mg 50 mg PO DAILY 09/30/22 04/29/24 History tablet,extended release 24 hr desvenlafaxine succinate 25 mg 25 mg PO DAILY 03/19/23 04/29/24 History tablet,extended release 24 hr albuterol sulfate 90 mcg/actuation 2 inh inhalation Q6H PRN shortness 08/29/23 04/29/24 Rx breath activated powder inhaler of breath or wheezing #1 ea quetiapine 100 mg tablet 100 mg PO HS PRN as needed 10/22/23 04/29/24 History budesonide-formoterol HFA 160 1 inh inhalation BID #10.2 grams 11/21/23 04/29/24 Rx mcg-4.5 mcg/actuation aerosol inhaler ipratropium 0.5 mg-albuterol 3 mg 3 ml inhalation Q6H PRN wheezing 11/21/23 04/29/24 Rx (2.5 mg base)/3 mL nebulization #180 mL soln divalproex 250 mg tablet,delayed 500 mg (2 x 250 mg) PO HS #180 tabs 12/25/23 04/29/24 Rx release diazepam 10 mg tablet 10 mg PO QHS Anxiety #30 tabs 01/02/24 04/29/24 Rx rizatriptan 10 mg disintegrating See Rx Instructions PO .COMPLEX 03/02/24 04/29/24 Rx tablet (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-FLOTATION TENDER HELPER) #30 tabs meclizine 12.5 mg tablet See Rx Instructions .Route 04/02/24 04/29/24 Rx .COMPLEX #90 ea diclofenac sodium 1 % topical gel 4 g topical QID #100 grams 04/29/24 04/29/24 Rx (Voltaren Arthritis Pain) hydrocodone 10 mg-acetaminophen 1 tab PO TID 30 days #90 tabs 04/29/24 04/29/24 Rx 325 mg tablet lidocaine 4 % topical patch 1 patch topical DAILY PRN pain #30 04/29/24 04/29/24 Rx (Aspercreme (lidocaine)) ea New Prescriptions to Start Prescriptions: Allergies Allergy/AdvReac Type Severity Reaction Status Date / Time nitrous oxide Allergy Severe Unknown Verified 04/29/24 14:41 allergy reaction prednisone Allergy Mild shortness Verified 04/29/24 14:41 of breath codeine [CODEINE] Allergy Unknown Verified 04/29/24 14:41 fluoxetine [From PROZAC] Allergy Unknown Verified 04/29/24 14:41 ibuprofen [IBUPROFEN] Allergy Unknown Verified 04/29/24 14:41 latex [LATEX] Allergy Unknown Verified 04/29/24 14:41 loratadine [From CLARITIN] Allergy Unknown Verified 04/29/24 14:41 magnesium [MAGNESIUM] Allergy Unknown Verified 04/29/24 14:41 nitrofurantoin Allergy Unknown Verified 04/29/24 14:41 [NITROFURANTOIN] oxycodone [OXYCODONE] Allergy Unknown Verified 04/29/24 14:41 risperidone Allergy Unknown Verified 04/29/24 14:41 sumatriptan [SUMATRIPTAN] Allergy Unknown Verified 04/29/24 14:41 tramadol [TRAMADOL] Allergy Unknown Verified 04/29/24 14:41 trazodone [TRAZODONE] Allergy Unknown Altered Verified 04/29/24 14:41 Sense of Taste duloxetine Allergy Verified 04/29/24 14:41 metronidazole [From Flagyl] Allergy Hallucinati Verified 04/29/24 14:41 ons Assessment and Plan *Assessment and plan (1) Left leg pain: Status: Acute Category: Medical Code(s): M79.605 - Pain in left leg (2) Chronic pain syndrome: Status: Acute Category: Medical Code(s): G89.4 - Chronic pain syndrome (3) Lumbar radiculopathy: Status: Acute Category: Medical Code(s): M54.16 - Radiculopathy, lumbar region (4) Degenerative disc disease, lumbar: Status: Acute Category: Medical Code(s): M51.36 - Other intervertebral disc degeneration, lumbar region Plan Patient is experiencing worsening pain in her low back with numbness and tingling that does radiate down into her lower extremities with the left side being worse. Patient did have limited range of motion of her lumbar spine and a positive leg raise during today's visit. I did discuss over the risk and benefits of repeat lumbar epidural steroid injection and she would like to proceed forward with this plan of care. Patient has tried and failed conservative therapy including at home stretching exercise for longer than 12 weeks and ongoing physical therapy currently. Patient did previously have a lumbar epidural steroid injection L5-S1 back in January that did provide more than 50% relief and lasted up until the last 2 weeks. Patient will be submitted for an LESI L5-S1 under fluoroscopy. Patient has been instructed to contact the clinic with any concerns before the next appointment. Dr. Rubio has reviewed this note and agrees with this plan of care. This note was dictated using voice recognition software and make contain errors or omissions. All injections are used with Lidocaine or Bupivacaine and Depo Medrol.
[2024-05-06 14:22] VITALS: BP 117/75; PULSE 60; RESP 16; O2SAT 97; BMI 25.7
== END 2024-05-06 23:59 | disposition home or self-care (01) ==
LOC: SC.PAIN 13:10
PROVIDERS: PCP Nurse Practitioner Family; Visit Provider Nurse Practitioner Family
DX: M79.605 Pain in left leg (principal); G89.4 Chronic pain syndrome; M51.16 Intervertebral disc disorders with radiculopathy, lumbar region; Z87.891 Personal history of nicotine dependence; Z79.899 Other long term (current) drug therapy
CPT/HCPCS: 99212; G0463

== ENCOUNTER 2024-05-13 13:18 | Emergency (ER) | payer OTHER, SELFPAY ==
[2024-05-13] VITALS (7 sets, daily range): BP systolic 96–131; BP diastolic 53–80; PULSE 62–81; RESP 14–16; TEMP 36.6; O2SAT 95–99; BMI 22.0
--- NOTE | 2024-05-13 13:22 | HMH.EDGENADL ---
Discharge Plan Disposition Patient Disposition: Home, Self-Care Condition: Good Prescriptions Prescriptions: No Action rizatriptan [Maxalt[facility]MIN[facility]RATOR] 10 mg tablet,disintegrating See Rx Instructions PO .COMPLEX Qty: 30 0RF Rx Instructions: take 1 tab at onset of headache; if no relief may repeat 1 tab after at least 2 hrs; max = 3 tabs/24 hr PO desvenlafaxine succinate 50 mg tablet extended release 24 hr 50 mg PO DAILY desvenlafaxine succinate 25 mg tablet extended release 24 hr 25 mg PO DAILY Patient Comments: TAKE ONE TABLET BY MOUTH EVERY MORNING quetiapine 100 mg tablet 100 mg PO HS PRN (Reason: as needed) Patient Comments: TAKE ONE TABLET BY MOUTH EVERY DAY AT BEDTIME NEEDED divalproex 250 mg tablet,delayed release (DR/EC) 500 mg PO HS Qty: 180 1RF Rx Instructions: TAKE TWO TABLETS BY MOUTH EVERY DAY AT BEDTIME FOR seizures diclofenac sodium [Voltaren Arthritis Pain] 1 % gel 4 g topical QID Qty: 100 2RF Rx Instructions: apply to single knee, ankle, foot; for foot includes sole/toes/top of foot lidocaine [Aspercreme (lidocaine)] 4 % adhesive patch,medicated 1 patch topical DAILY PRN (Reason: pain) Qty: 30 0RF hydrocodone-acetaminophen 10-325 mg tablet 1 tab PO TID 30 Days Qty: 90 0RF albuterol sulfate 90 mcg/actuation aerosol powdr breath activated 2 inh inhalation Q6H PRN (Reason: shortness of breath or wheezing) Qty: 1 2RF diazepam 10 mg tablet 10 mg PO QHS Qty: 30 0RF meclizine 12.5 mg tablet See Rx Instructions .ROUTE .COMPLEX Qty: 90 0RF Dose Instruction: TAKE ONE TABLET BY MOUTH THREE TIMES DAILY NEEDED FOR dizziness Rx Instructions: TAKE ONE TABLET BY MOUTH THREE TIMES DAILY NEEDED FOR dizziness budesonide-formoterol 160-4.5 mcg/actuation HFA aerosol inhaler 1 inh inhalation BID Qty: 10.2 2RF ipratropium-albuterol 0.5 mg-3 mg(2.5 mg base)/3 mL solution for nebulization 3 ml inhalation Q6H PRN (Reason: wheezing) Qty: 180 1RF Referrals Follow up/Referrals: Provider,Referral, MD [Referring] - See instructions Clinical Impressions Clinical Impression: Complicated migraine Print Language Print Language: Yoruba Discharge ED Provider: Joselito Rodrigez General Adult HPI <Joselito Rodrigez MD - Last Filed: 05/13/24 15:14> General Chief complaint: Fall Stated complaint: fell a week ago state neck and shoulder pain Time Seen by Provider: 05/13/24 13:22 History of Present Illness HPI narrative: The patient presents with a chief complaint of worsening vertigo, neck pain, and dizziness. The symptoms have been exacerbated by a recent fall approximately 2-3 days ago. The patient has a history of vertigo, which has been managed by her primary care physician for about a year. She has been undergoing physical therapy for tennis elbow and neck issues, and previously had an infusion in her neck that caused adverse effects. The vertigo is described as a sensation of her brain moving around in her head, particularly when she lays down or looks up or down. The patient is currently experiencing dizziness and reports neck pain, particularly on the side where she fell. She also mentions shoulder pain extending from the neck to the shoulder area. Associated symptoms include blurry vision when looking at certain angles, particularly down and to the side. The patient reports difficulty looking down due to dizziness and is cautious about moving her head. She mentions seeing half the people sometimes when she sleeps. The patient has been taking pain medication, which she has documented. She has not seen a neurologist or an ENT doctor for her vertigo. The patient mentions a previous fall described as a body slam when she tripped over a polymer bed and hit concrete floors. She reports feeling like she's been clubbed in the neck area where it's sore. Additional information includes that the patient has a service dog that apparently helped her after a fall by licking her to wake her up. Please note that above description of symptoms, in this electronic medical record under categorization of recalled from ER triage doctor by RN are reflective of an initial nursing assessment, however, is not reflective of my full history and physical exam that was personally taken and clarified. Consequentially, this preceding description of symptoms, which may include the patient's categorized chief complaint in the EMR, do not reflect my personal clinical impression, and the ultimate description of history of present illness and patient stated complaints should be deferred to this section of the note. Unless stated otherwise or congruent with this section of the note, additional signs, symptoms, or incongruence should be interpreted as inaccurate with my clinical impression. Related Data Home Medications ?Medication ?Instructions ?Recorded ?Confirmed desvenlafaxine succinate 50 mg 50 mg PO DAILY 09/30/22 05/06/24 tablet,extended release 24 hr desvenlafaxine succinate 25 mg 25 mg PO DAILY 03/19/23 05/06/24 tablet,extended release 24 hr quetiapine 100 mg tablet 100 mg PO HS PRN as needed 10/22/23 05/06/24 Previous Rx's ?Medication ?Instructions ?Recorded albuterol sulfate 90 mcg/actuation 2 inh inhalation Q6H PRN shortness 08/29/23 breath activated powder inhaler of breath or wheezing #1 ea budesonide-formoterol HFA 160 1 inh inhalation BID #10.2 grams 11/21/23 mcg-4.5 mcg/actuation aerosol inhaler ipratropium 0.5 mg-albuterol 3 mg 3 ml inhalation Q6H PRN wheezing 11/21/23 (2.5 mg base)/3 mL nebulization #180 mL soln divalproex 250 mg tablet,delayed 500 mg (2 x 250 mg) PO HS #180 tabs 12/25/23 release diazepam 10 mg tablet 10 mg PO QHS Anxiety #30 tabs 01/02/24 rizatriptan 10 mg disintegrating See Rx Instructions PO .COMPLEX 03/02/24 tablet ([facility]) #30 tabs meclizine 12.5 mg tablet See Rx Instructions .Route 04/02/24 .COMPLEX #90 ea diclofenac sodium 1 % topical gel 4 g topical QID #100 grams 04/29/24 (Voltaren Arthritis Pain) hydrocodone 10 mg-acetaminophen 1 tab PO TID 30 days #90 tabs 04/29/24 325 mg tablet lidocaine 4 % topical patch 1 patch topical DAILY PRN pain #30 04/29/24 (Aspercreme (lidocaine)) ea Allergies Allergy/AdvReac Type Severity Reaction Status Date / Time nitrous oxide Allergy Severe Unknown Verified 04/29/24 14:41 allergy reaction prednisone Allergy Mild shortness Verified 04/29/24 14:41 of breath codeine (CODEINE) Allergy Unknown Verified 04/29/24 14:41 fluoxetine (From PROZAC) Allergy Unknown Verified 04/29/24 14:41 ibuprofen (IBUPROFEN) Allergy Unknown Verified 04/29/24 14:41 latex (LATEX) Allergy Unknown Verified 04/29/24 14:41 loratadine (From CLARITIN) Allergy Unknown Verified 04/29/24 14:41 magnesium (MAGNESIUM) Allergy Unknown Verified 04/29/24 14:41 nitrofurantoin Allergy Unknown Verified 04/29/24 14:41 (NITROFURANTOIN) oxycodone (OXYCODONE) Allergy Unknown Verified 04/29/24 14:41 risperidone Allergy Unknown Verified 04/29/24 14:41 sumatriptan (SUMATRIPTAN) Allergy Unknown Verified 04/29/24 14:41 tramadol (TRAMADOL) Allergy Unknown Verified 04/29/24 14:41 trazodone (TRAZODONE) Allergy Unknown Altered Verified 04/29/24 14:41 Sense of Taste duloxetine Allergy Verified 04/29/24 14:41 metronidazole (From Flagyl) Allergy Hallucinati Verified 04/29/24 14:41 [facility] <Joselito Rodrigez MD - Last Filed: 05/13/24 15:14> [facility] Disclaimer: The information contained in this section may have been updated after the patient was seen, as this information can be updated by other users. Medical History (Updated 05/13/24 @ 16:43 by Ilan Nguyen MD) Fall Urinary symptom or sign Lumbar radiculopathy Dizziness Dizziness Hypokalemia Anxiety Skin lesions Skin lesions, generalized Abnormal electrocardiogram [ECG] [EKG] Dyspnea Depression Strep pharyngitis Complete miscarriage Acute pain of left knee Arm pain, left Swelling of labia Allergic reaction caused by a drug UTI (urinary tract infection) No significant past medical history Rash and nonspecific skin eruption Generalized seizure COVID-19 Vomiting Headache Gastroenteritis Pharyngitis Exposure to COVID-19 virus Viral syndrome Chronic lumbar pain COPD exacerbation Strain of lumbar region Concussion Fall Seizure Medication reaction Lower extremity pain Functional abdominal pain syndrome Neck Pain Elbow pain Anxiety Cervical strain Acute bronchitis Bronchitis Surgical History History of kidney surgery History of D&C H/O: History of appendectomy History of partial hysterectomy H/O cervical spine surgery Family History Other Cancer Diabetes Heart attack Hypertension Stroke Social History Smoking Status: Former smoker tobacco type: cigarettes alcohol intake: never substance use type: denies use current occupational status: other Travel in the last 8 weeks: None household members: none housing: other Other Medical History Have you received the Flu Vaccine for this season: No Have you received the Pneumonia Vaccine: No <Joselito Rodrigez MD - Last Filed: 05/13/24 15:14> ROS Obtained: Yes other As per HPI Physical Exam <Joselito Rodrigez MD - Last Filed: 05/13/24 15:14> General General appearance: alert and in no apparent distress Head Head exam: atraumatic and normocephalic Eye Eye exam: Present normal appearance Neck Neck exam: Present normal inspection Chest Chest inspection: Present normal inspection and symmetric chest wall rise Respiratory Respiratory exam: Present normal lung sounds bilaterally; Absent respiratory distress Cardiovascular Cardiovascular exam: Present regular rate and normal rhythm Abdominal Exam Abdominal exam: Present soft Neurological Exam Neurological exam: Present alert and oriented X3 Psychiatric Psychiatric exam: Present normal affect and normal mood Skin Skin exam: Present warm and dry Other Other exam information: No nystagmus at rest. Reports mildly blurry vision in periphery of right visual field. No dysmetria or dysdiadochokinesia. Head impulse test deferred due to neck pain. Normal test of skew examination. No dysarthria, no cranial nerve deficit. No hearing loss. Diffuse neck pain. No external evidence of trauma. Medical Decision Making <Joselito Rodrigez MD - Last Filed: 05/13/24 15:14> Medical Records Medical records reviewed: Yes I reviewed the patient's medical records. Screening: Per USPSTF and CDC recommendations, given the prevalence of disease in our region, it is our hospital?s policy to screen for HIV and viral Hepatitis for all patients aged 18 and over and those with ongoing risk factors. Darrius Inquiry Pt receiving controlled substance: No Vital Signs: 05/13/24 13:29 05/13/24 14:03 05/13/24 14:21 Temperature 97.8 F Temperature Source Oral Pulse Rate 81 76 Pulse Rate [Left Radial] 74 Respiratory Rate 16 Blood Pressure 96/65 L 131/80 Blood Pressure [Right Arm] 115/74 Blood Pressure Mean [Right Arm] 87 02 Sat by Pulse Oximetry 96 95 97 Oxygen Delivery Method Room Air Room Air Room Air 05/13/24 15:00 05/13/24 15:30 05/13/24 16:00 Temperature Temperature Source Pulse Rate 67 64 64 Pulse Rate [Left Radial] Respiratory Rate Blood Pressure 120/64 111/53 L 108/63 L Blood Pressure [Right Arm] Blood Pressure Mean [Right Arm] 02 Sat by Pulse Oximetry 97 99 96 Oxygen Delivery Method Room Air Room Air Room Air Lab Data Lab Results 05/13/24 13:27: WBC 5.9, RBC 4.05 L, Hgb 12.9, Hct 38.2, MCV 94.3, MCH 31.9 H, MCHC 33.8, RDW 13.6, Plt Count 240, MPV 9.2, Neut % (Auto) 39.7, Lymph % (Auto) 51.3 H, Banks % (Auto) 5.3, Eos % (Auto) 2.8, Baso % (Auto) 0.9, Neut # (Auto) 2.3, Lymph # (Auto) 3.0, Banks # (Auto) 0.3, Eos # (Auto) 0.2, Baso # (Auto) 0.1, Total Counted 100, Neutrophils % (Manual) 44, Lymphocytes % (Manual) 50, Monocytes % (Manual) 3, Eosinophils % (Manual) 2, Basophils % (Manual) 1.0, Platelet Estimate Normal, Giant Platelets 1+, RBC Morphology Normal, Sodium 139, Potassium 3.9, Chloride 105, Carbon Dioxide 28, Anion Gap 9.9, BUN 17, Creatinine 0.80, Estimated Creat Clear 88, Estimated GFR 76, Est GFR ( Amer) 92, Glucose 107 H, Calcium 8.6, Magnesium 1.8, Total Bilirubin 0.5, AST 24, ALT 19, Alkaline Phosphatase 77, Total Protein 6.3, Albumin 3.7, Globulin 2.6, Albumin/Globulin Ratio 1.4, HIV 1&2 Antibody Rapid Nonreactive 05/13/24 13:27 05/13/24 13:27 Orders (Tests/Meds): ED MEDICATIONS Discontinued Medications Generic Name Dose Route Start Last Admin Trade Name Freq PRN Reason Stop Dose Admin Acetaminophen 1,000 mg 05/13/24 15:05 05/13/24 15:25 Acetaminophen 500mg Tab PO 05/13/24 15:06 1,000 mg ONCE ONE Administration Dexamethasone 10 mg 05/13/24 15:05 05/13/24 15:25 Dexamethasone 4mg Tablet PO 05/13/24 15:06 10 mg ONCE ONE Administration Diphenhydramine HCl 25 mg 05/13/24 15:05 05/13/24 15:32 Diphenhydramine 50mg/Ml Vial IV 05/13/24 15:06 25 mg ONCE ONE Administration Hydromorphone HCl 0.5 mg 05/13/24 14:04 05/13/24 14:18 Hydromorphone 4 Mg/Ml Syringe IV 05/13/24 14:05 0.5 mg ONCE ONE Administration Iopamidol 80 ml 05/13/24 14:32 05/13/24 14:35 Iopamidol-370 (76%);100ml Bottle IV 05/13/24 14:33 80 ml ONCE ONE Administration Ketorolac Tromethamine 15 mg 05/13/24 15:05 05/13/24 15:27 Ketorolac 30mg/Ml Vial IV 05/13/24 15:06 15 mg ONCE ONE Administration Prochlorperazine Edisylate 10 mg 05/13/24 15:05 05/13/24 15:33 Prochlorperazine 10mg/2ml Vial IM 05/13/24 15:06 10 mg ONCE ONE Administration Sodium Chloride 50 ml 05/13/24 14:32 05/13/24 14:35 0.9 % Sodium Chloride 50 Ml Vial IV 05/13/24 14:33 50 ml ONCE ONE Administration Sodium Chloride 10 ml 05/13/24 14:32 05/13/24 14:35 Sodium Chloride 0.9% 10ml Syr (Rad Only) IV 05/13/24 14:33 10 ml ONCE ONE Administration ORDERS Category Date Time Status CT angio head Stat Cat Scan 05/13/24 14:[address] angio neck Stat Cat Scan 05/13/24 14:[address] head/brain wo con Stat Cat Scan 05/13/24 14:04 Completed Elbow XR right 2 views [XR elbow RT 2V] Stat Exams 05/13/24 14:04 Completed Shoulder XR right miminum 2 views [XR shoulder RT min Exams 05/13/24 14:04 Completed 2V] Stat XR chest portable Stat Exams 05/13/24 14:05 Completed XR humerus RT Stat Exams 05/13/24 14:04 Completed CBC w/Auto Diff [Complete Blood Count Auto Diff] Stat Lab 05/13/24 13:27 Completed CMP [Comprehensive Metabolic Panel] Stat Lab 05/13/24 13:27 Completed HIV (1&2) Antibody Rapid Stat Lab 05/13/24 13:27 Completed Hep C Ab with Reflex to RNA Stat Lab 05/13/24 13:27 Received MAG [Magnesium] Stat Lab 05/13/24 13:27 Completed Medical Decision Narrative: Patient with history and exam per above presenting for evaluation of multiple complaints, including dizziness, headache, chronic shoulder pain, chronic elbow pain. Recent fall. Diagnoses considered include central vertigo, peripheral vertigo, stroke, complicated migraine including vestibular migraine, fracture, among others ED workup and treatment included: ED MEDICATIONS Discontinued Medications Generic Name Dose Route Start Last Admin Trade Name Freq PRN Reason Stop Dose Admin Acetaminophen 1,000 mg 05/13/24 15:05 Acetaminophen 500mg Tab PO 05/13/24 15:06 ONCE ONE Dexamethasone 10 mg 05/13/24 15:05 Dexamethasone 4mg Tablet PO 05/13/24 15:06 ONCE ONE Diphenhydramine HCl 25 mg 05/13/24 15:05 Diphenhydramine 50mg/Ml Vial IV 05/13/24 15:06 ONCE ONE Hydromorphone HCl 0.5 mg 05/13/24 14:04 05/13/24 14:18 Hydromorphone 4 Mg/Ml Syringe IV 05/13/24 14:05 0.5 mg ONCE ONE Administration Iopamidol 80 ml 05/13/24 14:32 05/13/24 14:35 Iopamidol-370 (76%);100ml Bottle IV 05/13/24 14:33 80 ml ONCE ONE Administration Ketorolac Tromethamine 15 mg 05/13/24 15:05 Ketorolac 30mg/Ml Vial IV 05/13/24 15:06 ONCE ONE Prochlorperazine Edisylate 10 mg 05/13/24 15:05 Prochlorperazine 10mg/2ml Vial IM 05/13/24 15:06 ONCE ONE Sodium Chloride 50 ml 05/13/24 14:32 05/13/24 14:35 0.9 % Sodium Chloride 50 Ml Vial IV 05/13/24 14:33 50 ml ONCE ONE Administration Sodium Chloride 10 ml 05/13/24 14:32 05/13/24 14:35 Sodium Chloride 0.9% 10ml Syr (Rad Only) IV 05/13/24 14:33 10 ml ONCE ONE Administration ORDERS Category Date Time Status CT angio head Stat Cat Scan 05/13/24 14:[address] angio neck Stat Cat Scan 05/13/24 14:[address] head/brain wo con Stat Cat Scan 05/13/24 14:04 Taken Elbow XR right 2 views [XR elbow RT 2V] Stat Exams 05/13/24 14:04 Taken Shoulder XR right miminum 2 views [XR shoulder RT min Exams 05/13/24 14:04 Taken 2V] Stat XR chest portable Stat Exams 05/13/24 14:05 Taken XR humerus RT Stat Exams 05/13/24 14:04 Taken CBC w/Auto Diff [Complete Blood Count Auto Diff] Stat Lab 05/13/24 13:27 Results CMP [Comprehensive Metabolic Panel] Stat Lab 05/13/24 13:27 Completed HIV (1&2) Antibody Rapid Stat Lab 05/13/24 13:27 Completed Hep C Ab with Reflex to RNA Stat Lab 05/13/24 13:27 Received MAG [Magnesium] Stat Lab 05/13/24 13:27 Completed Labs and imaging pending at this time. Care was transferred to incoming physician. <Ilan Nguyen MD - Last Filed: 05/13/24 16:45> Vital Signs: 05/13/24 13:29 05/13/24 14:03 05/13/24 14:21 Temperature 97.8 F Temperature Source Oral Pulse Rate 81 76 Pulse Rate [Left Radial] 74 Respiratory Rate 16 Blood Pressure 96/65 L 131/80 Blood Pressure [Right Arm] 115/74 Blood Pressure Mean [Right Arm] 87 02 Sat by Pulse Oximetry 96 95 97 Oxygen Delivery Method Room Air Room Air Room Air 05/13/24 15:00 05/13/24 15:30 05/13/24 16:00 Temperature Temperature Source Pulse Rate 67 64 64 Pulse Rate [Left Radial] Respiratory Rate Blood Pressure 120/64 111/53 L 108/63 L Blood Pressure [Right Arm] Blood Pressure Mean [Right Arm] 02 Sat by Pulse Oximetry 97 99 96 Oxygen Delivery Method Room Air Room Air Room Air Lab Data Lab Results 05/13/24 13:27: WBC 5.9, RBC 4.05 L, Hgb 12.9, Hct 38.2, MCV 94.3, MCH 31.9 H, MCHC 33.8, RDW 13.6, Plt Count 240, MPV 9.2, Neut % (Auto) 39.7, Lymph % (Auto) 51.3 H, Banks % (Auto) 5.3, Eos % (Auto) 2.8, Baso % (Auto) 0.9, Neut # (Auto) 2.3, Lymph # (Auto) 3.0, Banks # (Auto) 0.3, Eos # (Auto) 0.2, Baso # (Auto) 0.1, Total Counted 100, Neutrophils % (Manual) 44, Lymphocytes % (Manual) 50, Monocytes % (Manual) 3, Eosinophils % (Manual) 2, Basophils % (Manual) 1.0, Platelet Estimate Normal, Giant Platelets 1+, RBC Morphology Normal, Sodium 139, Potassium 3.9, Chloride 105, Carbon Dioxide 28, Anion Gap 9.9, BUN 17, Creatinine 0.80, Estimated Creat Clear 88, Estimated GFR 76, Est GFR ( Amer) 92, Glucose 107 H, Calcium 8.6, Magnesium 1.8, Total Bilirubin 0.5, AST 24, ALT 19, Alkaline Phosphatase 77, Total Protein 6.3, Albumin 3.7, Globulin 2.6, Albumin/Globulin Ratio 1.4, HIV 1&2 Antibody Rapid Nonreactive Orders (Tests/Meds): ED MEDICATIONS Discontinued Medications Generic Name Dose Route Start Last Admin Trade Name Radq PRN Reason Stop Dose Admin Acetaminophen 1,000 mg 05/13/24 15:05 05/13/24 15:25 Acetaminophen 500mg Tab PO 05/13/24 15:06 1,000 mg ONCE ONE Administration Dexamethasone 10 mg 05/13/24 15:05 05/13/24 15:25 Dexamethasone 4mg Tablet PO 05/13/24 15:06 10 mg ONCE ONE Administration Diphenhydramine HCl 25 mg 05/13/24 15:05 05/13/24 15:32 Diphenhydramine 50mg/Ml Vial IV 05/13/24 15:06 25 mg ONCE ONE Administration Hydromorphone HCl 0.5 mg 05/13/24 14:04 05/13/24 14:18 Hydromorphone 4 Mg/Ml Syringe IV 05/13/24 14:05 0.5 mg ONCE ONE Administration Iopamidol 80 ml 05/13/24 14:32 05/13/24 14:35 Iopamidol-370 (76%);100ml Bottle IV 05/13/24 14:33 80 ml ONCE ONE Administration Ketorolac Tromethamine 15 mg 05/13/24 15:05 05/13/24 15:27 Ketorolac 30mg/Ml Vial IV 05/13/24 15:06 15 mg ONCE ONE Administration Prochlorperazine Edisylate 10 mg 05/13/24 15:05 05/13/24 15:33 Prochlorperazine 10mg/2ml Vial IM 05/13/24 15:06 10 mg ONCE ONE Administration Sodium Chloride 50 ml 05/13/24 14:32 05/13/24 14:35 0.9 % Sodium Chloride 50 Ml Vial IV 05/13/24 14:33 50 ml ONCE ONE Administration Sodium Chloride 10 ml 05/13/24 14:32 05/13/24 14:35 Sodium Chloride 0.9% 10ml Syr (Rad Only) IV 05/13/24 14:33 10 ml ONCE ONE Administration ORDERS Category Date Time Status CT angio head Stat Cat Scan 05/13/24 14:[address] angio neck Stat Cat Scan 05/13/24 14:[address] head/brain wo con Stat Cat Scan 05/13/24 14:04 Completed Elbow XR right 2 views [XR elbow RT 2V] Stat Exams 05/13/24 14:04 Completed Shoulder XR right miminum 2 views [XR shoulder RT min Exams 05/13/24 14:04 Completed 2V] Stat XR chest portable Stat Exams 05/13/24 14:05 Completed XR humerus RT Stat Exams 05/13/24 14:04 Completed CBC w/Auto Diff [Complete Blood Count Auto Diff] Stat Lab 05/13/24 13:27 Completed CMP [Comprehensive Metabolic Panel] Stat Lab 05/13/24 13:27 Completed HIV (1&2) Antibody Rapid Stat Lab 05/13/24 13:27 Completed Hep C Ab with Reflex to RNA Stat Lab 05/13/24 13:27 Received MAG [Magnesium] Stat Lab 05/13/24 13:27 Completed Medical Decision Narrative: Patient with history and exam per above presenting for evaluation of multiple complaints, including dizziness, headache, chronic shoulder pain, chronic elbow pain. Recent fall. Diagnoses considered include central vertigo, peripheral vertigo, stroke, complicated migraine including vestibular migraine, fracture, among others ED workup and treatment included: CTA head and neck, CT head without contrast, CBC, CMP, magnesium level, right shoulder x-ray, right humerus x-ray, right elbow x-ray, chest x-ray, patient's migraine was treated with 0.5 mg 0.5 mg Dilaudid, fluids, 1000 mg Tylenol, 15 mg IV Toradol, 10 mg of dexamethasone and 25 mg of IV Benadryl. ED MEDICATIONS Discontinued Medications Generic Name Dose Route Start Last Admin Trade Name Freq PRN Reason Stop Dose Admin Acetaminophen 1,000 mg 05/13/24 15:05 Acetaminophen 500mg Tab PO 05/13/24 15:06 ONCE ONE Dexamethasone 10 mg 05/13/24 15:05 Dexamethasone 4mg Tablet PO 05/13/24 15:06 ONCE ONE Diphenhydramine HCl 25 mg 05/13/24 15:05 Diphenhydramine 50mg/Ml Vial IV 05/13/24 15:06 ONCE ONE Hydromorphone HCl 0.5 mg 05/13/24 14:04 05/13/24 14:18 Hydromorphone 4 Mg/Ml Syringe IV 05/13/24 14:05 0.5 mg ONCE ONE Administration Iopamidol 80 ml 05/13/24 14:32 05/13/24 14:35 Iopamidol-370 (76%);100ml Bottle IV 05/13/24 14:33 80 ml ONCE ONE Administration Ketorolac Tromethamine 15 mg 05/13/24 15:05 Ketorolac 30mg/Ml Vial IV 05/13/24 15:06 ONCE ONE Prochlorperazine Edisylate 10 mg 05/13/24 15:05 Prochlorperazine 10mg/2ml Vial IM 05/13/24 15:06 ONCE ONE Sodium Chloride 50 ml 05/13/24 14:32 05/13/24 14:35 0.9 % Sodium Chloride 50 Ml Vial IV 05/13/24 14:33 50 ml ONCE ONE Administration Sodium Chloride 10 ml 05/13/24 14:32 05/13/24 14:35 Sodium Chloride 0.9% 10ml Syr (Rad Only) IV 05/13/24 14:33 10 ml ONCE ONE Administration ORDERS Category Date Time Status CT angio head Stat Cat Scan 05/13/24 14:[address] angio neck Stat Cat Scan 05/13/24 14:[address] head/brain wo con Stat Cat Scan 05/13/24 14:04 Taken Elbow XR right 2 views [XR elbow RT 2V] Stat Exams 05/13/24 14:04 Taken Shoulder XR right miminum 2 views [XR shoulder RT min Exams 05/13/24 14:04 Taken 2V] Stat XR chest portable Stat Exams 05/13/24 14:05 Taken XR humerus RT Stat Exams 05/13/24 14:04 Taken CBC w/Auto Diff [Complete Blood Count Auto Diff] Stat Lab 05/13/24 13:27 Results CMP [Comprehensive Metabolic Panel] Stat Lab 05/13/24 13:27 Completed HIV (1&2) Antibody Rapid Stat Lab 05/13/24 13:27 Completed Hep C Ab with Reflex to RNA Stat Lab 05/13/24 13:27 Received MAG [Magnesium] Stat Lab 05/13/24 13:27 Completed Labs and imaging pending at this time. Care was transferred to incoming physician. Ilan Nguyen MD Labs unremarkable and nonactionable. CT imaging interpreted by me personally demonstrated no significant stenosis/aneurysms within the head or neck on CTA imaging. No acute intracranial hemorrhage or masses/mass effect. See radiology report for details. On reassessment, patient reported significant improvement in her headache and was able to ambulate without difficulty. Given this, is felt that patient is appropriate for discharge home and that her symptoms were likely secondary to a complicated migraine, and patient reports a history of previous migraines. Return precautions were given. All questions were answered. She demonstrated understanding and was in agreement with this plan. She was then discharged from the emergency department in stable condition Critical Care <Joselito Rodrigez MD - Last Filed: 05/13/24 15:14> Critical Care Time Critical Care Time: No
--- NOTE | 2024-05-13 14:00 | PC.NURSE ---
DR STINSON AT BEDSIDE
--- NOTE | 2024-05-13 14:04 | XR_ITS ---
PROCEDURE INFORMATION: Exam: XR Right Elbow Exam date and time: 05/13/2024 2:36 PM Age: 48 years old Clinical indication: Injury or trauma; Fall; Other: Pain; Additional info: Fall 3d ago, head injury, vertigo TECHNIQUE: Imaging protocol: Radiologic exam of the right elbow. Views: 3 or more views. COMPARISON: CR XR SHOULDER RT MIN 2V 05/13/2024 2:36 PM FINDINGS: Bones/joints: No acute fracture or dislocation. Soft tissues: Normal. IMPRESSION: No acute fracture or dislocation.
--- NOTE | 2024-05-13 14:04 | CT_ITS ---
PROCEDURE INFORMATION: Exam: CTA Head With Contrast, Arteriography Exam date and time: 05/13/2024 2:33 PM Age: 48 years old Clinical indication: Injury or trauma; Fall; Blunt trauma; Neck; Additional info: Fall 3d ago, head injury, vertigo TECHNIQUE: Imaging protocol: Computed tomographic angiography of the head with contrast. Exam focused on the arteries. 3D rendering (Not supervised by radiologist): MIP and/or 3D reconstructed images were created by the technologist. Radiation optimization: All CT scans at this facility use at least one of these dose optimization techniques: automated exposure control; mA and/or kV adjustment per patient size (includes targeted exams where dose is matched to clinical indication); or iterative reconstruction. Contrast material: ISO 370; Contrast volume: 80 ml; Contrast route: INTRAVENOUS (IV); COMPARISON: CT HEAD/BRAIN WO CON 05/13/2024 2:31 PM FINDINGS: Limitations: Evaluation is mildly limited by 2.5 mm thick axial imaging. ANTERIOR CIRCULATION: Right internal carotid artery: Intracranial segment is patent with no significant stenosis. No aneurysm. Right middle cerebral artery: No occlusion or significant stenosis. No aneurysm. Right anterior cerebral artery: No occlusion or significant stenosis. No aneurysm. Left internal carotid artery: Intracranial segment is patent with no significant stenosis. No aneurysm. Left middle cerebral artery: No occlusion or significant stenosis. No aneurysm. Left anterior cerebral artery: No occlusion or significant stenosis. No aneurysm. POSTERIOR CIRCULATION: Right vertebral artery: No occlusion or significant stenosis. No aneurysm. Left vertebral artery: No occlusion or significant stenosis. No aneurysm. Basilar artery: No occlusion or significant stenosis. No aneurysm. Right posterior cerebral artery: No occlusion or significant stenosis. No aneurysm. Left posterior cerebral artery: No occlusion or significant stenosis. No aneurysm. Brain: No definite mass, cerebral edema, or midline shift. Cerebral ventricles: No ventriculomegaly. Bones/joints: Unremarkable. No acute fracture. Soft tissues: Unremarkable. IMPRESSION: 1. Evaluation is mildly limited by 2.5 mm thick axial imaging. 2. No large vessel occlusion
--- NOTE | 2024-05-13 14:04 | CT_ITS ---
PROCEDURE INFORMATION: Exam: CTA Neck With Contrast Exam date and time: 05/13/2024 2:33 PM Age: 48 years old Clinical indication: Injury or trauma; Fall; Other: Pain; Additional info: Fall 3d ago, head injury, vertigo TECHNIQUE: Imaging protocol: Computed tomographic angiography of the neck with contrast. Exam focused on the cervical segments of the vasculature. 3D rendering (Not supervised by radiologist): MIP and/or 3D reconstructed images were created by the technologist. Radiation optimization: All CT scans at this facility use at least one of these dose optimization techniques: automated exposure control; mA and/or kV adjustment per patient size (includes targeted exams where dose is matched to clinical indication); or iterative reconstruction. Contrast material: ISOVUE; Contrast volume: 80 ml; Contrast route: INTRAVENOUS (IV); COMPARISON: CT CERVICAL SPINE WO CON 04/05/2022 8:58 PM FINDINGS: Right common carotid artery: No stenosis. No dissection or occlusion. Right internal carotid artery: No stenosis of the extracranial segment. No dissection or occlusion. Right external carotid artery: No occlusion or stenosis of the origin. Left common carotid artery: No stenosis. No dissection or occlusion. Left internal carotid artery: No stenosis of the extracranial segment. No dissection or occlusion. Left external carotid artery: There is moderate stenosis of the left external carotid artery origin. Right vertebral artery: No stenosis. No dissection or occlusion. Left vertebral artery: No stenosis. No dissection or occlusion. Soft tissues: Normal. No significant soft tissue swelling. Bones/joints: Postoperative changes in the cervical spine are noted. There is no acute fracture. Lungs: Mild centrilobular and paraseptal emphysema is present in the lung apices. IMPRESSION: No significant carotid or vertebral artery stenosis within the neck REFERENCES: NASCET CRITERIA. The degree of stenosis in the cervical segment of the internal carotid artery is based on NASCET criteria. Normal is no stenosis. Mild is less than 50% stenosis. Moderate is 50-69% stenosis. Severe is 70% to 99% stenosis. Total occlusion is no detectable patent lumen.
--- NOTE | 2024-05-13 14:04 | XR_ITS ---
PROCEDURE INFORMATION: Exam: XR Right Shoulder Exam date and time: 05/13/2024 2:36 PM Age: 48 years old Clinical indication: Injury or trauma; Fall; Other: Pain; Additional info: Fall, shoulder pain TECHNIQUE: Imaging protocol: Radiologic exam of the right shoulder. Views: 2 or more views. COMPARISON: CR XR HUMERUS RT 05/13/2024 2:36 PM FINDINGS: Bones/joints: No acute fracture or dislocation. C6/7 spine fusion hardware. Soft tissues: Normal. IMPRESSION: No acute fracture or dislocation.
--- NOTE | 2024-05-13 14:04 | XR_ITS ---
PROCEDURE INFORMATION: Exam: XR Right Humerus Exam date and time: 05/13/2024 2:36 PM Age: 48 years old Clinical indication: Injury or trauma; Fall; Other: Pain; Additional info: Fall 3d ago, head injury, vertigo TECHNIQUE: Imaging protocol: Radiologic exam of the right humerus. Views: 2 or more views. COMPARISON: CR XR SHOULDER RT MIN 2V 05/13/2024 2:36 PM FINDINGS: Bones/joints: No acute fracture or dislocation. Soft tissues: Normal. IMPRESSION: No acute fracture or dislocation.
--- NOTE | 2024-05-13 14:04 | CT_ITS ---
PROCEDURE INFORMATION: Exam: CT Head Without Contrast Exam date and time: 05/13/2024 2:31 PM Age: 48 years old Clinical indication: Injury or trauma; Fall; Other: Pain; Additional info: Fall 3d ago, head injury, vertigo TECHNIQUE: Imaging protocol: Computed tomography of the head without contrast. Radiation optimization: All CT scans at this facility use at least one of these dose optimization techniques: automated exposure control; mA and/or kV adjustment per patient size (includes targeted exams where dose is matched to clinical indication); or iterative reconstruction. COMPARISON: No relevant prior studies available. FINDINGS: Brain: No intracranial hemorrhage. Cerebral ventricles: No ventriculomegaly. Paranasal sinuses: Visualized sinuses are unremarkable. No fluid levels. Mastoid air cells: Visualized mastoid air cells are well aerated. Bones: Unremarkable. No acute fracture. Soft tissues: Unremarkable. IMPRESSION: No intracranial hemorrhage or acute fracture.
--- NOTE | 2024-05-13 14:05 | XR_ITS ---
PROCEDURE INFORMATION: Exam: XR Chest Exam date and time: 05/13/2024 2:36 PM Age: 48 years old Clinical indication: Injury or trauma; Fall; Other: Pain; Additional info: Fall, chest pain TECHNIQUE: Imaging protocol: Radiologic exam of the chest. Views: 1 view. COMPARISON: CR XR CHEST 2V 11/21/2023 10:51 AM FINDINGS: Lungs: Unremarkable. No consolidation. Pleural spaces: Unremarkable. No pleural effusion. No pneumothorax. Heart/Mediastinum: Unremarkable. No cardiomegaly. Bones/joints: Partially imaged cervical spine hardware. IMPRESSION: No acute findings.
[2024-05-13 14:13] LABS: Basophils # 0.1 K/mm3 (0-0.2); Basophils % 0.9 % (0.1-2.0); Eosinophils # 0.2 K/mm3 (0.0-0.4); Eosinophils % 2.8 % (0.1-12.0); Hematocrit 38.2 % (37.0-47.0); Hemoglobin 12.9 g/dL (12.2-16.2); Lymphocytes % 51.3 % (10-50); Mean Corpuscular HGB Conc 33.8 g/dL (31.8-35.4); Mean Corpuscular Hemoglobin 31.9 pg (27.0-31.2); Mean Corpuscular Volume 94.3 fl (81-99); Mean Platelet Volume 9.2 fl (7.4-10.4); Monocytes # 0.3 K/mm3 (0.1-1.0); Monocytes % 5.3 % (1.7-9.3); Neutrophils # 2.3 K/mm3 (1.8-7.8); Neutrophils % 39.7 % (37.0-80.0); Platelet Count 240 K/mm3 (142-424); Red Blood Count 4.05 M/mm3 (4.20-5.40); Red Cell Distribution Width 13.6 % (11.5-17.5); White Blood Count 5.9 K/mm3 (4.8-10.8)
[2024-05-13 14:15] LABS: MANUAL DIFFERENTIAL MANUAL DIFFERENTIAL (MANUAL DIFF)
[2024-05-13 14:17] LABS: Alanine Aminotransferase 19 U/L (12-78); Albumin Level 3.7 g/dl (3.5-5.0); Albumin/Globulin Ratio 1.4 (1.1-1.8); Alkaline Phosphatase 77 U/L (38-126); Anion Gap 9.9 mEq/L (5-15); Aspartate Amino Transferase 24 U/L (14-36); Bilirubin,Total 0.5 mg/dl (0.2-1.3); Blood Urea Nitrogen 17 mg/dl (7-17); Calcium 8.6 mg/dl (8.4-10.2); Carbon Dioxide 28 mmol/L (22.0-30.0); Chloride 105 mmol/L (98-107); Creatinine Clearance Estimated 88 mL/min (50-200); Estimated Glomerular Filt Rate 76 ml/min (>60); GFR (African American) 92 ML/MIN (>60); Globulin 2.6 g/dL (1.3-3.2); Glucose 107 mg/dl (74-100); Magnesium 1.8 mg/dl (1.6-2.3); Potassium 3.9 mmoL/L (3.5-5.1); Sodium 139 mmol/L (136-145); Total Protein,Serum 6.3 g/dl (6.3-8.2)
[2024-05-13 14:34] LABS: HIV (1&2) Antibody Rapid NONREACTIVE (NONREACTIVE)
[2024-05-13] MEDS: 0.9 % SODIUM CHLORIDE 50 ML VIAL IV (14:35)
[2024-05-13] MEDS: IOPAMIDOL-370 (76%);100ML BOTTLE 80 ML IV (14:35)
[2024-05-13] MEDS: SODIUM CHLORIDE 0.9% 10ML SYR (RAD ONLY) 10 ML IV (14:35)
[2024-05-13 15:12] LABS: Eosinophils % 2 % (0-3); Lymphocytes % 50 % (10-50); Monocytes % 3 % (2-9); Neutrophils % 44 % (42-76); Total Cells Counted 100
[2024-05-13 15:13] LABS: Giant Platelets 1+; Platelet Estimate Normal
[2024-05-13 15:15] LABS: RBC Morphology Normal
[2024-05-13] MEDS: ACETAMINOPHEN 500MG TAB 1000 MG PO (15:25)
[2024-05-13] MEDS: DEXAMETHASONE 4MG TABLET 10 MG PO (15:25)
[2024-05-13] MEDS: KETOROLAC 30MG/ML VIAL 15 MG IV (15:27)
[2024-05-13] MEDS: diphenhydrAMINE 50MG/ML VIAL 25 MG IV (15:32)
[2024-05-13] MEDS: PROCHLORPERAZINE 10MG/2ML VIAL 10 MG IM (15:33)
--- NOTE | 2024-05-13 16:35 | PC.NURSE ---
PT AMBULATED TO BR AND BACK TO BED WITHOUT DIFFICULTY
[2024-05-14 07:24] LABS: HCV Ab Non Reactive (Non Reactive)
== END 2024-05-13 16:46 | disposition home or self-care (01) ==
PROVIDERS: Emergency Medicine; Emergency Provider Student in an Organized Health Care Education/Training Program; PCP Nurse Practitioner Family
DX: G43.109 Migraine with aura, not intractable, without status migrainosus (principal); R42 Dizziness and giddiness; M54.2 Cervicalgia; H53.8 Other visual disturbances; M25.519 Pain in unspecified shoulder
CPT/HCPCS: 70450; 70496; 70498; 71045; 73030; 73060; 73070; 80053; 83735; 85007; 85025; 85027; 86803; 87389; 96372; 96374; 96375; 99285; J0780; J1171; J1200; J1885; J8540; Q9967

== ENCOUNTER 2024-05-20 15:00 | Outpatient (RCR) | payer OTHER, SELFPAY | END 2024-05-20 23:59 | disposition home or self-care (01) | LOC: OT 15:00 | PROVIDERS: Visit Provider Nurse Practitioner Family | DX: M25.521 Pain in right elbow (principal); M79.2 Neuralgia and neuritis, unspecified | CPT/HCPCS: 97014; 97165; G0283 ==

== ENCOUNTER 2024-06-08 09:33 | Day surgery (SDC) | payer OTHER, SELFPAY ==
[2024-06-08 09:42] VITALS: BP 140/103; PULSE 71; RESP 16; TEMP 36.2; O2SAT 95; BMI 24.6
[2024-06-08] MEDS: methylPREDNISolone ACETATE 80MG/ML VIAL 80 MG (09:50)
--- NOTE | 2024-06-08 09:50 | P.PCN_ITS ---
Procedure Date: 06/08/24 Time: 09:45 Anesthesiologist:: Jacoby Claros CRNA Complications:: None Pre-procedure Diagnosis:: Small annular tear at L5-S1. Lumbar radiculopathy. Post-procedure Diagnosis:: Same. Indications for Procedure:: Patient's pleasant 49-year-old female comes to clinic today for lumbar epidural steroid injection L5-S1 level. She describes low lumbar back pain as constant, dull, aching. Patient also reports bilateral hip and leg radicular symptoms at times. She rates her pain 7/10. Patient reports 50% improvement in terms of her overall symptoms after receiving lumbar epidural steroid injection at the L5-S1 level in the past. Procedure Details:: Procedure: Lumbar epidural steroid injection under fluoroscopy Informed consent was obtained and the risks and benefits of the procedure were explained to the patient. The patient was taken to the procedure room and noninvasive monitors placed, including noninvasive blood pressure cuff and pulse oximeter. The back was viewed using C-arm Fluoroscopy and prepped using Chloraprep as a cleansing solution and the L5-S1 interspace was palpated. Skin and subcutaneous tissues were anesthetized using lidocaine 1.5% and a 25-gauge needle. After this, an 18-gauge Touhy epidural needle was placed into the L5-S1 interspace and advanced using fluoroscopic guidance and loss of resistance to air until the epidural space was encountered. After confirmation of needle place ment in the epidural space, with dye, a solution containing normal saline, 3 mL and Depo-Medrol 80 mg were incrementally injected into the lumbar epidural space. The patient tolerated the procedure well with no complications. The patient was observed in the Pain Clinic and then discharged home neurologically intact. Plan and Disposition:: Patient was discharged without incident.
[2024-06-08 09:52] VITALS: BP 114/58; PULSE 71; RESP 18; O2SAT 98
[2024-06-08 09:54] VITALS: BP 114/58; PULSE 71; RESP 18; O2SAT 98
[2024-06-08 10:12] VITALS: BP 126/82; PULSE 74; RESP 16; TEMP 36.6; O2SAT 95
== END 2024-06-08 10:12 | disposition home or self-care (01) ==
PROVIDERS: PCP Nurse Practitioner Family; Visit Provider Nurse Anesthetist, Certified Registered
DX: M51.16 Intervertebral disc disorders with radiculopathy, lumbar region (principal)
CPT/HCPCS: 62323; J1010

== ENCOUNTER 2024-06-10 15:23 | Outpatient (CLI) | payer OTHER, SELFPAY ==
[2024-06-10 16:51] LABS: Hemoglobin A1C 5.5 % (4.0-6.0)
[2024-06-10 16:55] LABS: Basophils # 0.1 K/mm3 (0-0.2); Basophils % 0.6 % (0.1-2.0); Eosinophils % 0.2 % (0.1-12.0); Hematocrit 40.5 % (37.0-47.0); Lymphocytes # 3.2 K/mm3 (0.7-4.5); Lymphocytes % 31.2 % (10-50); Mean Corpuscular HGB Conc 34.4 g/dL (31.8-35.4); Mean Corpuscular Volume 92.9 fl (81-99); Mean Platelet Volume 9.8 fl (7.4-10.4); Monocytes # 0.5 K/mm3 (0.1-1.0); Monocytes % 4.9 % (1.7-9.3); Neutrophils # 6.4 K/mm3 (1.8-7.8); Neutrophils % 63.1 % (37.0-80.0); Platelet Count 294 K/mm3 (142-424); Red Blood Count 4.36 M/mm3 (4.20-5.40); Red Cell Distribution Width 13.7 % (11.5-17.5); White Blood Count 10.1 K/mm3 (4.8-10.8)
[2024-06-10 17:09] LABS: Alanine Aminotransferase 30 U/L (12-78); Albumin Level 4.3 g/dl (3.5-5.0); Albumin/Globulin Ratio 1.5 (1.1-1.8); Alkaline Phosphatase 68 U/L (38-126); Anion Gap 7.2 mEq/L (5-15); Aspartate Amino Transferase 31 U/L (14-36); Bilirubin,Total 0.3 mg/dl (0.2-1.3); Blood Urea Nitrogen 14 mg/dl (7-17); Calcium 9.5 mg/dl (8.4-10.2); Carbon Dioxide 31 mmol/L (22.0-30.0); Chloride 102 mmol/L (98-107); Chol/HDL Ratio 3.7 (1-3.5); Cholesterol 286 mg/dl (140-200); Estimated Glomerular Filt Rate 89 ml/min (>60); GFR (African American) 107 ML/MIN (>60); Globulin 2.8 g/dL (1.3-3.2); Glucose 76 mg/dl (74-100); HDL Cholesterol 77 mg/dl (40-60); Potassium 4.2 mmoL/L (3.5-5.1); Sodium 136 mmol/L (136-145); Total Protein,Serum 7.1 g/dl (6.3-8.2); Triglycerides 234 mg/dl (30-150); VLDL Cholesterol 47 mg/dL (0-40)
[2024-06-10 17:24] LABS: Iron 111 ug/dL (37-170)
[2024-06-10 17:29] LABS: 25-OH Vitamin D, Total 23.4 ng/mL (30-100)
[2024-06-10 17:35] LABS: Total Iron Binding Capacity 388 ug/dL (265-497)
[2024-06-10 17:47] LABS: Direct LDL Cholesterol 185.79 mg/dL (100-129)
[2024-06-10 17:57] LABS: Thyroid Stimulating Hormone 1.47 uIU/mL (0.465-4.68)
[2024-06-10 18:01] LABS: Ferritin 48.8 ng/ml (6.24-137); Vitamin B12 338 pg/mL (239-931)
== END 2024-06-10 23:59 | disposition home or self-care (01) ==
LOC: LAB.DROPOF 06-11 10:37
PROVIDERS: PCP Nurse Practitioner Family; Visit Provider Nurse Practitioner Family
DX: R53.83 Other fatigue (principal); D64.9 Anemia, unspecified; Z13.220 Encounter for screening for lipoid disorders; Z13.1 Encounter for screening for diabetes mellitus; R39.9 Unspecified symptoms and signs involving the genitourinary system; F19.982 Other psychoactive substance use, unspecified with psychoactive substance-induced sleep disorder; R42 Dizziness and giddiness; E55.9 Vitamin D deficiency, unspecified
CPT/HCPCS: 80050; 80053; 80061; 82306; 82607; 82728; 83036; 83540; 83550; 84439; 84443; 85025; 87086

== ENCOUNTER 2024-06-24 08:48 | Outpatient (POV) | payer OTHER, SELFPAY ==
[2024-06-24 09:20] VITALS: BP 116/83; PULSE 82; RESP 14; O2SAT 97; BMI 25.7
--- NOTE | 2024-06-24 09:40 | EXP.PAIN.SOA ---
[facility] Disclaimer: The information contained in this section may have been updated after the patient was seen, as this information can be updated by other users. Medical History (Updated 06/11/24 @ 08:04 by Bhumi Cohen APRN) Left leg pain Spell of altered consciousness Fall Urinary symptom or sign Lumbar radiculopathy Dizziness Dizziness Hypokalemia Anxiety Skin lesions Skin lesions, generalized Abnormal electrocardiogram [ECG] [EKG] Dyspnea Depression Strep pharyngitis Complete miscarriage Acute pain of left knee Arm pain, left Swelling of labia Allergic reaction caused by a drug UTI (urinary tract infection) No significant past medical history Rash and nonspecific skin eruption Generalized seizure COVID-19 Vomiting Headache Gastroenteritis Pharyngitis Exposure to COVID-19 virus Viral syndrome Chronic lumbar pain COPD exacerbation Strain of lumbar region Concussion Fall Seizure Medication reaction Lower extremity pain Functional abdominal pain syndrome Neck Pain Elbow pain Anxiety Cervical strain Acute bronchitis Bronchitis Surgical History History of kidney surgery History of D&C H/O: History of appendectomy History of partial hysterectomy H/O cervical spine surgery Family History Other Cancer Diabetes Heart attack Hypertension Stroke Social History Smoking Status: Former smoker tobacco type: cigarettes alcohol intake: never substance use type: denies use current occupational status: other Travel in the last 8 weeks: None household members: none housing: other PM Subjective & Objective Subjective Subjective:: Patient is a pleasant 49-year-old female who presents today for follow-up of lumbar epidural steroid injection L5-S1 on 06/08/2024. Today she rates her pain a 4 out of 10. She denies any new trauma or injury. She does state that it has provided at least 50% relief and feels like it is still helping. She states that the pain is definitely not as severe and not it is constant. She does state that she has been having a little bit more dated day pain but she believes that it is related to the weather and her arthritis. Patient does still do at home stretching exercise along with using her TENS unit and using Aleve from time to time. Patient states that she has been tried on Celebrex in the past but had a reaction and that her stomach is very sensitive to new medications. Her Darrius has been reviewed and is appropriate. Review of Systems: General: No recent weight changes, no fever, no sleep disturbances Respiratory: No cough, no shortness of air, no recurring pulmonary infections Cardiovascular/peripheral vascular: No chest pain, no palpitations, no edema, no shortness of breath Gastrointestinal: No new onset incontinence, normal bowel movements reported Genitourinary: No new onset incontinence Musculoskeletal: Low back pain Psychiatric: [Normal mood/affect] Neurological: [Denies weakness in extremities], [denies balance issues] Pain at rest (0-10 scale): 4 Objective Objective:: Physical Exam: General: Alert and oriented x3, no acute distress, pleasant and cooperative Lungs: Respirations even and unlabored, symmetrical chest expansion Eyes: PERRL Musculoskeletal: Flexion and extension of lumbar [spine] somewhat guarded secondary to pain, [antalgic gait noted] Neurological: Speech clear, no gross sensory deficit Has patient had previous pain injection?: Yes Percent improvement in pain since last injection: 50% Conservative treatment options previously tried: Home exercise plan Length of treatment: Longer than 12 weeks Meds Home Medications and Allergies Home Medications ?Medication ?Instructions ?Recorded ?Confirmed ?Type albuterol sulfate 90 mcg/actuation 2 inh inhalation Q6H PRN shortness 08/29/23 06/24/24 Rx breath activated powder inhaler of breath or wheezing #1 ea quetiapine 100 mg tablet 100 mg PO HS PRN as needed 10/22/23 06/24/24 History budesonide-formoterol HFA 160 1 inh inhalation BID #10.2 grams 11/21/23 06/24/24 Rx mcg-4.5 mcg/actuation aerosol inhaler ipratropium 0.5 mg-albuterol 3 mg 3 ml inhalation Q6H PRN wheezing 11/21/23 06/24/24 Rx (2.5 mg base)/3 mL nebulization #180 mL soln diazepam 10 mg tablet 10 mg PO QHS Anxiety #30 tabs 01/02/24 06/24/24 Rx rizatriptan 10 mg disintegrating See Rx Instructions PO .COMPLEX 03/02/24 06/24/24 Rx tablet (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-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) #30 tabs diclofenac sodium 1 % topical gel 4 g topical QID #100 grams 04/29/24 06/24/24 Rx (Voltaren Arthritis Pain) lidocaine 4 % topical patch 1 patch topical DAILY PRN pain #30 04/29/24 06/24/24 Rx (Aspercreme (lidocaine)) ea hydrocodone 10 mg-acetaminophen 1 tab PO TID #90 tabs 05/31/24 06/24/24 Rx 325 mg tablet atorvastatin 40 mg tablet 40 mg PO HS #90 tabs 06/11/24 06/24/24 Rx cholecalciferol (vitamin D3) 50 50 mcg PO DAILY #90 caps 06/11/24 06/24/24 Rx mcg (2,000 unit) capsule cyanocobalamin (vitamin B-12) 1,000 mcg PO DAILY #90 tabs 06/11/24 06/24/24 Rx 1,000 mcg tablet divalproex 250 mg tablet,delayed 500 mg (2 x 250 mg) PO HS #180 tabs 06/11/24 06/24/24 Rx release desvenlafaxine succinate 25 mg 25 mg PO DAILY #90 tabs 06/21/24 06/24/24 Rx tablet,extended release 24 hr desvenlafaxine succinate 50 mg 50 mg PO DAILY #90 tabs 06/21/24 06/24/24 Rx tablet,extended release 24 hr meclizine 12.5 mg tablet See Rx Instructions .Route 06/21/24 06/24/24 Rx .COMPLEX #90 ea New Prescriptions to Start Prescriptions: Allergies Allergy/AdvReac Type Severity Reaction Status Date / Time nitrous oxide Allergy Severe Unknown Verified 06/10/24 13:57 allergy reaction prednisone Allergy Mild shortness Verified 06/10/24 13:57 of breath codeine (CODEINE) Allergy Unknown Verified 06/10/24 13:57 fluoxetine (From PROZAC) Allergy Unknown Verified 06/10/24 13:57 ibuprofen (IBUPROFEN) Allergy Unknown Verified 06/10/24 13:57 latex (LATEX) Allergy Unknown Verified 06/10/24 13:57 loratadine (From CLARITIN) Allergy Unknown Verified 06/10/24 13:57 magnesium (MAGNESIUM) Allergy Unknown Verified 06/10/24 13:57 nitrofurantoin Allergy Unknown Verified 06/10/24 13:57 (NITROFURANTOIN) oxycodone (OXYCODONE) Allergy Unknown Verified 06/10/24 13:57 risperidone Allergy Unknown Verified 06/10/24 13:57 sumatriptan (SUMATRIPTAN) Allergy Unknown Verified 06/10/24 13:57 tramadol (TRAMADOL) Allergy Unknown Verified 06/10/24 13:57 trazodone (TRAZODONE) Allergy Unknown Altered Verified 06/10/24 13:57 Sense of Taste duloxetine Allergy Verified 06/10/24 13:57 metronidazole (From Flagyl) Allergy Hallucinati Verified 06/10/24 13:57 ons Assessment and Plan *Assessment and plan (1) Degenerative disc disease, lumbar: Status: Acute Category: Medical Code(s): M51.369 - Other intervertebral disc degeneration, lumbar region without mention of lumbar back pain or lower extremity pain (2) Lumbar radiculopathy: Status: Acute Category: Medical Code(s): M54.16 - Radiculopathy, lumbar region Plan Patient has had significant relief and does not require additional interventions at this time. Patient will return to clinic in 6 weeks for reevaluation of symptoms and plan of care. Patient has been instructed to contact the clinic with any concerns before the next appointment. Dr. Rubio has reviewed this note and agrees with this plan of care. This note was dictated using voice recognition software and make contain errors or omissions. All injections are used with Lidocaine, Bupivacaine and Depo Medrol. Occasionally urine drug screen is needed to verify patient's compliance with our office pain contract. This is ordered based off specific treatments related to chronic pain with the potential to abuse certain medications.
== END 2024-06-24 23:59 | disposition home or self-care (01) ==
LOC: SC.PAIN 08:48
PROVIDERS: PCP Nurse Practitioner Family; Visit Provider Nurse Practitioner Family
DX: M51.16 Intervertebral disc disorders with radiculopathy, lumbar region (principal); Z87.891 Personal history of nicotine dependence; Z79.899 Other long term (current) drug therapy
CPT/HCPCS: 99212; G0463

== ENCOUNTER 2024-07-13 15:57 | Outpatient (CLI) | payer OTHER, SELFPAY ==
--- NOTE | 2024-07-13 15:58 | MM_ITS ---
PROCEDURE INFORMATION: Exam: MG Bilateral Screening 3D Mammography Exam date and time: 07/13/2024 3:45 PM Age: 49 years old Clinical indication: Screening. No family history of breast cancer. TECHNIQUE: Imaging protocol: Bilateral Screening tomosynthesis and 2D mammography including computer-aided detection (CAD) when performed. COMPARISON: 1. MG MM DIG SCREENING MAMM BI W/CAD 10/04/2022 1:17 PM 2. MG MM DIG SCREENING MAMM BI W/CAD 01/26/2019 4:18 PM 3. MG SCBI MM Dig screening mamm BI w/CAD 09/03/2017 4:21 PM 4. MG DMSB DIG MAMM-SCREEN ROMAINE 11/07/2015 4:47 PM FINDINGS: MAMMOGRAPHY: Breast composition: The breasts are heterogeneously dense, which may obscure small masses. Mass: No suspicious mass. No significant change in left breast masses. Architectural distortion: None. Calcifications: No suspicious calcifications. Asymmetric density: None. Skin thickening: None. Axillary adenopathy: None. IMPRESSION: No mammographic evidence of malignancy. Annual screening is recommended unless otherwise clinically indicated. ASSESSMENT: BI-RADS Category 2: Benign.
== END 2024-07-13 23:59 | disposition home or self-care (01) ==
LOC: RAD 15:58
PROVIDERS: PCP Nurse Practitioner Family; Visit Provider Nurse Practitioner Family
DX: Z12.31 Encounter for screening mammogram for malignant neoplasm of breast (principal)
CPT/HCPCS: 77063; 77067

== ENCOUNTER 2024-08-02 13:12 | Outpatient (POV) | payer OTHER, SELFPAY ==
--- NOTE | 2024-08-02 13:50 | EXP.PAIN.SOA ---
[facility] Disclaimer: The information contained in this section may have been updated after the patient was seen, as this information can be updated by other users. Medical History (Updated 08/02/24 @ 13:58 by Jyoti Mccoy APRN) Left leg pain Spell of altered consciousness Fall Urinary symptom or sign Lumbar radiculopathy Dizziness Dizziness Hypokalemia Anxiety Skin lesions Skin lesions, generalized Abnormal electrocardiogram [ECG] [EKG] Dyspnea Depression Strep pharyngitis Complete miscarriage Acute pain of left knee Arm pain, left Swelling of labia Allergic reaction caused by a drug UTI (urinary tract infection) No significant past medical history Rash and nonspecific skin eruption Generalized seizure COVID-19 Vomiting Headache Gastroenteritis Pharyngitis Exposure to COVID-19 virus Viral syndrome Chronic lumbar pain COPD exacerbation Strain of lumbar region Concussion Fall Seizure Medication reaction Lower extremity pain Functional abdominal pain syndrome Neck Pain Elbow pain Anxiety Cervical strain Acute bronchitis Bronchitis Surgical History History of kidney surgery History of D&C H/O: History of appendectomy History of partial hysterectomy H/O cervical spine surgery Family History Other Cancer Diabetes Heart attack Hypertension Stroke Social History Smoking Status: Former smoker tobacco type: cigarettes alcohol intake: never substance use type: denies use current occupational status: other Travel in the last 8 weeks: None household members: none housing: other PM Subjective & Objective Subjective Subjective:: Patient is a pleasant 49-year-old female who presents today for 6-week follow-up. She denies any new trauma or injury. Patient did previously have a lumbar epidural back in May that did provide about 50% relief and states that it still doing fairly good. Her main complaint today is worsening pain across her low back and into her hips. Patient states it is worse when she is seated for prolonged periods or laying down. She states that she frequently has to change positions due to the worsening pain. She describes it as an aching, throbbing sensation with sharp pain and states she is very tender throughout her back. Patient is interested in additional injection therapy because the pain is interfering with her ability perform activities of daily living such as cooking and cleaning. Patient has tried and failed conservative therapy including home stretching exercise along with using her TENS unit and using Aleve from time to time. Patient states that she has been tried on Celebrex but had GI upset. Her Darrius has been reviewed and is appropriate. Review of Systems: General: No recent weight changes, no fever, no sleep disturbances Respiratory: No cough, no shortness of air, no recurring pulmonary infections Cardiovascular/peripheral vascular: No chest pain, no palpitations, no edema, no shortness of breath Gastrointestinal: No new onset incontinence, normal bowel movements reported Genitourinary: No new onset incontinence Musculoskeletal: Low back pain, bilateral hip Psychiatric: [Normal mood/affect] Neurological: [Denies weakness in extremities], [denies balance issues] Pain at rest (0-10 scale): 5 Objective Objective:: Physical Exam: General: Alert and oriented x3, no acute distress, pleasant and cooperative Lungs: Respirations even and unlabored, symmetrical chest expansion Eyes: PERRL Musculoskeletal: Flexion and extension of lumbar [spine] somewhat guarded secondary to pain, [antalgic gait noted] point tenderness along bilateral SIs with positive bilateral Tamica's, Daniel's, Gaenslen's, compression and distraction exam Neurological: Speech clear, no gross sensory deficit Has patient had previous pain injection?: No Conservative treatment options previously tried: Home exercise plan Length of treatment: Longer than 12 weeks Meds Home Medications and Allergies Home Medications ?Medication ?Instructions ?Recorded ?Confirmed ?Type albuterol sulfate 90 mcg/actuation 2 inh inhalation Q6H PRN shortness 08/29/23 06/24/24 Rx breath activated powder inhaler of breath or wheezing #1 ea quetiapine 100 mg tablet 100 mg PO HS PRN as needed 10/22/23 06/24/24 History budesonide-formoterol HFA 160 1 inh inhalation BID #10.2 grams 11/21/23 06/24/24 Rx mcg-4.5 mcg/actuation aerosol inhaler ipratropium 0.5 mg-albuterol 3 mg 3 ml inhalation Q6H PRN wheezing 11/21/23 06/24/24 Rx (2.5 mg base)/3 mL nebulization #180 mL soln diazepam 10 mg tablet 10 mg PO QHS Anxiety #30 tabs 01/02/24 06/24/24 Rx rizatriptan 10 mg disintegrating See Rx Instructions PO .COMPLEX 03/02/24 06/24/24 Rx tablet (Maxalt-[employer]) #30 tabs diclofenac sodium 1 % topical gel 4 g topical QID #100 grams 04/29/24 06/24/24 Rx (Voltaren Arthritis Pain) lidocaine 4 % topical patch 1 patch topical DAILY PRN pain #30 04/29/24 06/24/24 Rx (Aspercreme (lidocaine)) ea atorvastatin 40 mg tablet 40 mg PO HS #90 tabs 06/11/24 06/24/24 Rx cholecalciferol (vitamin D3) 50 50 mcg PO DAILY #90 caps 06/11/24 06/24/24 Rx mcg (2,000 unit) capsule cyanocobalamin (vitamin B-12) 1,000 mcg PO DAILY #90 tabs 06/11/24 06/24/24 Rx 1,000 mcg tablet divalproex 250 mg tablet,delayed 500 mg (2 x 250 mg) PO HS #180 tabs 06/11/24 06/24/24 Rx release desvenlafaxine succinate 25 mg 25 mg PO DAILY #90 tabs 06/21/24 06/24/24 Rx tablet,extended release 24 hr desvenlafaxine succinate 50 mg 50 mg PO DAILY #90 tabs 06/21/24 06/24/24 Rx tablet,extended release 24 hr meclizine 12.5 mg tablet See Rx Instructions .Route 06/21/24 06/24/24 Rx .COMPLEX #90 ea hydrocodone 10 mg-acetaminophen 1 tab PO TID #90 tabs 07/28/24 Rx 325 mg tablet New Prescriptions to Start Prescriptions: Allergies Allergy/AdvReac Type Severity Reaction Status Date / Time nitrous oxide Allergy Severe Unknown Verified 06/10/24 13:57 allergy reaction prednisone Allergy Mild shortness Verified 06/10/24 13:57 of breath codeine (CODEINE) Allergy Unknown Verified 06/10/24 13:57 fluoxetine (From PROZAC) Allergy Unknown Verified 06/10/24 13:57 ibuprofen (IBUPROFEN) Allergy Unknown Verified 06/10/24 13:57 latex (LATEX) Allergy Unknown Verified 06/10/24 13:57 loratadine (From CLARITIN) Allergy Unknown Verified 06/10/24 13:57 magnesium (MAGNESIUM) Allergy Unknown Verified 06/10/24 13:57 nitrofurantoin Allergy Unknown Verified 06/10/24 13:57 (NITROFURANTOIN) oxycodone (OXYCODONE) Allergy Unknown Verified 06/10/24 13:57 risperidone Allergy Unknown Verified 06/10/24 13:57 sumatriptan (SUMATRIPTAN) Allergy Unknown Verified 06/10/24 13:57 tramadol (TRAMADOL) Allergy Unknown Verified 06/10/24 13:57 trazodone (TRAZODONE) Allergy Unknown Altered Verified 06/10/24 13:57 Sense of Taste duloxetine Allergy Verified 06/10/24 13:57 metronidazole (From Flagyl) Allergy Hallucinati Verified 06/10/24 13:57 ons Assessment and Plan *Assessment and plan (1) Bilateral sacroiliitis: Status: Acute Category: Medical Code(s): M46.1 - Sacroiliitis, not elsewhere classified Plan Patient is experiencing worsening pain along the low back and bilateral hips. They did have limited range of motion of the lumbar spine along with extreme point tenderness along bilateral SI joints and a positive bilateral Tamica's, Daniel's, Gaenslen's, compression and distraction exam. I did discuss with the patient that I do believe they would benefit from bilateral SI injections. Risk and benefits were discussed with the patient and they would like to proceed forward with this option. Patient has tried and failed conservative therapy including continued at home stretching exercise for longer than 12 weeks. Patient does states she has been having this pain for more than 3 months and that it is progressively worsened. Patient will be scheduled for bilateral SI injections under fluoroscopy. Patient has been instructed to contact the clinic with any concerns before the next appointment. Dr. Rubio has reviewed this note and agrees with this plan of care. This note was dictated using voice recognition software and make contain errors or omissions. All injections are used with Lidocaine or Bupivacaine and Depo Medrol.
[2024-08-02 13:59] VITALS: BP 109/79; PULSE 77; RESP 14; O2SAT 97; BMI 25.7
== END 2024-08-02 23:59 | disposition home or self-care (01) ==
PROVIDERS: PCP Nurse Practitioner Family; Visit Provider Nurse Practitioner Family
DX: M46.1 Sacroiliitis, not elsewhere classified (principal); Z87.891 Personal history of nicotine dependence; Z73.89 Other problems related to life management difficulty; Z79.899 Other long term (current) drug therapy
CPT/HCPCS: 99212; G0463

== ENCOUNTER 2024-08-23 09:27 | Outpatient (CLI) | payer OTHER, SELFPAY ==
--- NOTE | 2024-08-23 09:30 | XR_ITS ---
FINAL REPORT CLINICAL HISTORY: SI area pain COMPARISON: None FINDINGS: 3 views of the sacroiliac joints were obtained. There is no prior exam for comparison. There is no acute fracture or other acute osseous abnormality. The SI joints are symmetric bilaterally. No acute soft tissue abnormality is present. IMPRESSION: Unremarkable sacroiliac joints. Reviewed, Interpreted and Dictated by Lashae Barlow MD Transcribed by Melinda Russ Authenticated and [facility]
== END 2024-08-23 23:59 | disposition home or self-care (01) ==
LOC: RAD 09:28
PROVIDERS: PCP Nurse Practitioner Family; Visit Provider Nurse Practitioner Family
DX: M46.1 Sacroiliitis, not elsewhere classified (principal)
CPT/HCPCS: 72202

== ENCOUNTER 2024-09-01 15:19 | Emergency (ER) | payer OTHER, SELFPAY ==
--- NOTE | 2024-09-01 15:26 | ECG_ITS ---
APPROVED REPORT Exam: Resting ECG HR:88 bpm ECG Measurements Heart Rate 88 AXES QRSd 83 QRS 81 QT 352 T 77 QTc 398 Conclusion ATRIAL FIBRILLATION MODERATE ST DEPRESSION [0.05+ mV ST DEPRESSION] ABNORMAL ECG UNCONFIRMED REPORT Electronically signed by : ROBLES ESPAÑA, 09/02/2024 06:51:18
[2024-09-01 15:31] VITALS: BP 151/90; PULSE 95; RESP 19; TEMP 36.8; O2SAT 97; BMI 24.7
--- NOTE | 2024-09-01 15:44 | ED_ITS ---
<Statement entered by Jyoti Jimenez DO - 09/02/24 00:36> I was consulted by the VELMA, and we discussed the complexity of the problems being addressed. I approved the treatment and management plan for this patient's care in the emergency department, thus performing a substantive portion of the medical decision making. History seems to be consistent with benzodiazepine withdrawal in the setting of stopping her Valium. It was tapered down, however may be she is still having withdrawal symptoms. She did significantly improve with Ativan. It is possible this could all be related to anxiety, but given that she had a high CIWA score and self-reported seizure and symptoms at home, will treat with Librium taper. This was prescribed to her. Strict return precautions given. Jyoti Jimenez DO Discharge Plan Disposition Patient Disposition: Home, Self-Care Condition: Good Prescriptions Prescriptions: New chlordiazepoxide HCl 25 mg capsule See Rx Instructions .ROUTE .COMPLEX Qty: 15 0RF Rx Instructions: Day 1: 50mg q6h Day 2: 25mg q6h Day 3: 25mg q12h Day 4: 25mg at night (Rx fifteen 25mg tabs) No Action rizatriptan [Maxalt-MOTION PICTURE ACTOR] 10 mg tablet,disintegrating See Rx Instructions PO .COMPLEX Qty: 30 0RF Rx Instructions: take 1 tab at onset of headache; if no relief may repeat 1 tab after at least 2 hrs; max = 3 tabs/24 hr PO quetiapine 100 mg tablet 100 mg PO HS PRN (Reason: as needed) Patient Comments: TAKE ONE TABLET BY MOUTH EVERY DAY AT BEDTIME NEEDED diclofenac sodium [Voltaren Arthritis Pain] 1 % gel 4 g topical QID Qty: 100 2RF Rx Instructions: apply to single knee, ankle, foot; for foot includes sole/toes/top of foot lidocaine [Aspercreme (lidocaine)] 4 % adhesive patch,medicated 1 patch topical DAILY PRN (Reason: pain) Qty: 30 0RF prazosin 1 mg capsule 1 mg PO HS Qty: 30 1RF albuterol sulfate 90 mcg/actuation aerosol powdr breath activated 2 inh inhalation Q6H PRN (Reason: shortness of breath or wheezing) Qty: 1 2RF atorvastatin 40 mg tablet 40 mg PO HS Qty: 90 3RF cyanocobalamin (vitamin B-12) 1,000 mcg tablet 1,000 mcg PO DAILY Qty: 90 3RF cholecalciferol (vitamin D3) 50 mcg (2,000 unit) capsule 50 mcg PO DAILY Qty: 90 3RF desvenlafaxine succinate 50 mg tablet extended release 24 hr 50 mg PO DAILY Qty: 90 0RF Rx Instructions: Take with a 25mg tablet for a total of 75mg daily. desvenlafaxine succinate 25 mg tablet extended release 24 hr 25 mg PO DAILY Qty: 90 0RF Rx Instructions: Take with a 50mg tablet for a total of 75mg daily. meclizine 12.5 mg tablet See Rx Instructions .ROUTE .COMPLEX Qty: 90 0RF Dose Instruction: TAKE ONE TABLET BY MOUTH THREE TIMES DAILY NEEDED FOR dizziness Rx Instructions: TAKE ONE TABLET BY MOUTH THREE TIMES DAILY NEEDED FOR dizziness divalproex 250 mg tablet,delayed release (DR/EC) 500 mg PO HS Qty: 60 11RF Rx Instructions: TAKE TWO TABLETS BY MOUTH EVERY DAY AT BEDTIME FOR seizures hydrocodone-acetaminophen 10-325 mg tablet 1 tab PO TID Qty: 90 0RF budesonide-formoterol 160-4.5 mcg/actuation HFA aerosol inhaler 1 inh inhalation BID Qty: 10.2 2RF ipratropium-albuterol 0.5 mg-3 mg(2.5 mg base)/3 mL solution for nebulization 3 ml inhalation Q6H PRN (Reason: wheezing) Qty: 180 1RF Referrals Follow up/Referrals: Nisa Lawton APRN [Nurse Practitioner] - See instructions Leanne Saucedo APRN [Nurse Practitioner] - See instructions Activity Restrictions/Add. Instructions Additional Instructions/Restrictions: We have sent a Librium taper into your pharmacy. I have given you the name of 2 providers that can help with your anxiety medicine management plan. If you have any new or worsening signs or symptoms please follow-up with your PCP or return to the ER. Clinical Impressions Clinical Impression: Benzodiazepine withdrawal, Anxiety disorder Instructions Patient Instructions: Chlordiazepoxide Print Language Print Language: Welsh Discharge ED Provider: Jyoti Jimenez General Adult HPI <SALVADOR Montes - Last Filed: 09/02/24 00:14> General Chief complaint: Anxiety Stated complaint: SEIZURE Time Seen by Provider: 09/01/24 15:43 History of Present Illness HPI narrative: Patient presents via EMS for evaluation of a self-reported seizure. Patient has a longstanding history of anxiety and has recently been being tapered off of her Valium. She originally started at 30 mg of Valium a day and she has been titrated down to 10 mg until last week. Patient states that her PCP stopped filling her prescriptions abruptly last week. Patient states that when she does not take her Valium every night that she has seizures. Patient knows because she describes the symptoms that she is having them. She does reportedly does have a seizure disorder and is on Depakote and Seroquel. Patient states today that she had a seizure and she reported it as trembling. Patient does not report losing consciousness does not report amnesia of events. EMS was called by her. She denies chest pain shortness of breath fever chills hemoptysis hematochezia melena but does report nausea and vomiting but no diarrhea Related Data Home Medications ?Medication ?Instructions ?Recorded ?Confirmed quetiapine 100 mg tablet 100 mg PO HS PRN as needed 10/22/23 09/01/24 Previous Rx's ?Medication ?Instructions ?Recorded albuterol sulfate 90 mcg/actuation 2 inh inhalation Q6H PRN shortness 08/29/23 breath activated powder inhaler of breath or wheezing #1 ea budesonide-formoterol HFA 160 1 inh inhalation BID #10.2 grams 11/21/23 mcg-4.5 mcg/actuation aerosol inhaler ipratropium 0.5 mg-albuterol 3 mg 3 ml inhalation Q6H PRN wheezing 11/21/23 (2.5 mg base)/3 mL nebulization #180 mL soln rizatriptan 10 mg disintegrating See Rx Instructions PO .COMPLEX 03/02/24 tablet (Maxalt-MOTION PICTURE ACTOR) #30 tabs diclofenac sodium 1 % topical gel 4 g topical QID #100 grams 04/29/24 (Voltaren Arthritis Pain) lidocaine 4 % topical patch 1 patch topical DAILY PRN pain #30 04/29/24 (Aspercreme (lidocaine)) ea atorvastatin 40 mg tablet 40 mg PO HS #90 tabs 06/11/24 cholecalciferol (vitamin D3) 50 50 mcg PO DAILY #90 caps 06/11/24 mcg (2,000 unit) capsule cyanocobalamin (vitamin B-12) 1,000 mcg PO DAILY #90 tabs 06/11/24 1,000 mcg tablet desvenlafaxine succinate 25 mg 25 mg PO DAILY #90 tabs 06/21/24 tablet,extended release 24 hr desvenlafaxine succinate 50 mg 50 mg PO DAILY #90 tabs 06/21/24 tablet,extended release 24 hr meclizine 12.5 mg tablet See Rx Instructions .Route 06/21/24 .COMPLEX #90 ea prazosin 1 mg capsule 1 mg PO HS #30 caps 08/10/24 divalproex 250 mg tablet,delayed 500 mg (2 x 250 mg) PO HS #60 tabs 08/30/24 release hydrocodone 10 mg-acetaminophen 1 tab PO TID #90 tabs 08/30/24 325 mg tablet chlordiazepoxide HCl 25 mg capsule See Rx Instructions .Route 09/01/24 .COMPLEX #15 caps Allergies Allergy/AdvReac Type Severity Reaction Status Date / Time nitrous oxide Allergy Severe Unknown Verified 09/01/24 16:13 allergy reaction prednisone Allergy Mild shortness Verified 09/01/24 16:13 of breath codeine (CODEINE) Allergy Unknown Unknown Verified 09/01/24 16:13 allergy reaction fluoxetine (From PROZAC) Allergy Unknown Unknown Verified 09/01/24 16:13 allergy reaction ibuprofen (IBUPROFEN) Allergy Unknown Unknown Verified 09/01/24 16:13 allergy reaction latex (LATEX) Allergy Unknown Unknown Verified 09/01/24 16:13 allergy reaction loratadine (From CLARITIN) Allergy Unknown Unknown Verified 09/01/24 16:13 allergy reaction magnesium (MAGNESIUM) Allergy Unknown Unknown Verified 09/01/24 16:13 allergy reaction nitrofurantoin Allergy Unknown Unknown Verified 09/01/24 16:13 (NITROFURANTOIN) allergy reaction oxycodone (OXYCODONE) Allergy Unknown Unknown Verified 09/01/24 16:13 allergy reaction risperidone Allergy Unknown Unknown Verified 09/01/24 16:13 allergy reaction sumatriptan (SUMATRIPTAN) Allergy Unknown Unknown Verified 09/01/24 16:13 allergy reaction tramadol (TRAMADOL) Allergy Unknown Unknown Verified 09/01/24 16:13 allergy reaction trazodone (TRAZODONE) Allergy Unknown Altered Verified 09/01/24 16:13 Sense of Taste duloxetine Allergy Unknown Verified 09/01/24 16:13 allergy reaction metronidazole (From Flagyl) Allergy Hallucinati Verified 09/01/24 16:13 ons FOR[facility]LY [facility], [facility]–1983 <SALVADOR Montes - Last Filed: 09/02/24 00:14> [facility], [facility] Disclaimer: The information contained in this section may have been updated after the patient was seen, as this information can be updated by other users. Medical History (Updated 09/01/24 @ 18:05 by SALVADOR Montes) Nightmares associated with chronic post-traumatic stress disorder Left leg pain Spell of altered consciousness Fall Urinary symptom or sign Lumbar radiculopathy Dizziness Dizziness Hypokalemia Anxiety Skin lesions Skin lesions, generalized Abnormal electrocardiogram [ECG] [EKG] Dyspnea Depression Strep pharyngitis Complete miscarriage Acute pain of left knee Arm pain, left Swelling of labia Allergic reaction caused by a drug UTI (urinary tract infection) No significant past medical history Rash and nonspecific skin eruption Generalized seizure COVID-19 Vomiting Headache Gastroenteritis Pharyngitis Exposure to COVID-19 virus Viral syndrome Chronic lumbar pain COPD exacerbation Strain of lumbar region Concussion Fall Seizure Medication reaction Lower extremity pain Functional abdominal pain syndrome Neck Pain Elbow pain Anxiety Cervical strain Acute bronchitis Bronchitis Surgical History History of kidney surgery History of D&C H/O: History of appendectomy History of partial hysterectomy H/O cervical spine surgery Family History Other Cancer Diabetes Heart attack Hypertension Stroke Social History Smoking Status: Current every day smoker tobacco type: cigarettes alcohol intake: never substance use type: denies use current occupational status: other Travel in the last 8 weeks: None household members: none housing: other Have you lived/traveled outside [place] in past 30 days?: No Contact w/someone who lives/traveled outside US past 30 days?: No Exposure to someone with infectious disease in past 14 days?: No Do you have a fever (greater than 100.4 F or 38 C)?: No Have you tested positive for COVID-19: No Exposed to someone with COVID-19 in past 14 days?: No Do you have a sore throat?: No Do you have a cough?: No Do you have any weakness?: No Do you have any diarrhea?: No Are you experiencing any unusual bleeding?: No Do you have any muscle aches/pain?: No Do you have any abdominal pain?: No Are you experiencing loss of taste or smell?: No Other Medical History Have you received the Flu Vaccine for this season: No Have you received the Pneumonia Vaccine: No <SALVADOR Montes - Last Filed: 09/02/24 00:14> ROS Obtained: Yes Systems reviewed as appropriate & no additional complaints except as documented Physical Exam <SALVADOR Montes - Last Filed: 09/02/24 00:14> General General appearance: alert and in no apparent distress Respiratory Respiratory exam: Present normal lung sounds bilaterally Cardiovascular Cardiovascular exam: Present regular rate Neurological Exam Neurological exam: Present alert and oriented X3 Psychiatric Psychiatric exam: Present anxious Medical Decision Making <SALVADOR Montes - Last Filed: 09/02/24 00:14> Medical Records Screening: Per USPSTF and CDC recommendations, given the prevalence of disease in our region, it is our hospital?s policy to screen for HIV and viral Hepatitis for all patients aged 18 and over and those with ongoing risk factors. Vital Signs: 09/01/24 15:31 09/01/24 16:01 09/01/24 16:30 Temperature 98.3 F Temperature Source Oral Pulse Rate 83 68 Pulse Rate [Left] 95 H Respiratory Rate 19 20 13 Blood Pressure 130/85 141/94 H Blood Pressure [Right Arm] 151/90 H Blood Pressure Mean [Right Arm] 110 Blood Pressure Source [Right Arm] Automatic Cuff Blood Pressure Position [Right Arm] Sitting 02 Sat by Pulse Oximetry 97 97 96 Oxygen Delivery Method Room Air Room Air Room Air 09/01/24 17:19 09/01/24 17:30 09/01/24 18:18 Temperature 98.3 F Temperature Source Pulse Rate 74 74 77 Pulse Rate [Left] Respiratory Rate 14 Blood Pressure 104/47 L 118/64 122/76 Blood Pressure [Right Arm] Blood Pressure Mean [Right Arm] Blood Pressure Source [Right Arm] Blood Pressure Position [Right Arm] 02 Sat by Pulse Oximetry 98 98 Oxygen Delivery Method Room Air Room Air Room Air Lab Data Lab results reviewed: Yes I reviewed the patient's lab results. Lab Results 09/01/24 15:15: WBC 7.7, RBC 4.40, Hgb 13.8, Hct 39.9, MCV 90.7, MCH 31.4 H, MCHC 34.6, RDW 11.9, Plt Count 304, MPV 11.1 H, Neut % (Auto) 43.7, Lymph % (Auto) 48.5, Divide % (Auto) 5.7, Eos % (Auto) 1.6, Baso % (Auto) 0.4, Neut # (Auto) 3.4, Lymph # (Auto) 3.8, Divide # (Auto) 0.4, Eos # (Auto) 0.1, Baso # (Auto) 0.0, Sodium 137, Potassium 3.9, Chloride 103, Carbon Dioxide 25, Anion Gap 12.9, BUN 17, Creatinine 0.70, Estimated Creat Clear 96, Estimated GFR 89, Est GFR ( Amer) 107, Glucose 93, Calcium 9.0, Magnesium 1.9, Total Bilirubin 0.4, AST 27, ALT 24, Alkaline Phosphatase 78, Total Creatine Kinase 57, Troponin I < 0.01, Total Protein 7.4, Albumin 4.6, Globulin 2.8, Albumin/Globulin Ratio 1.6, Lipase 44, TSH 1.27, Free T4 Index 2.6 L, Thyroxine (T4) 8.4, T3 Uptake 31 09/01/24 15:58: VBG pH 7.44 H, VBG pCO2 37.4, VBG pO2 36.1, VBG HCO3 24.6, VBG Total CO2 25.8, VBG O2 Saturation 70.4 H, VBG Base Excess 0.4, VBG Lactic Acid 1.4 09/01/24 16:10: Lactate 1.6 09/01/24 16:41: Urine Color Yellow, Urine Appearance Clear, Urine pH 7.0, Ur Specific [place] 1.015, Urine Protein Negative, Urine Glucose (UA) Negative, Urine Ketones Negative, Urine Blood Negative, Urine Nitrate Negative, Urine Bilirubin Negative, Urine Urobilinogen 0.2, Ur Leukocyte Esterase Negative, Urine RBC None, Urine WBC 3-5, Ur Squamous Epith Cells 3-5, Urine Bacteria Trace, Urine Mucus Trace, Urine Opiates Screen Positive H, Urine Methadone Screen Negative, Ur Barbituates Screen Negative, Ur Phencyclidine Scrn Negative, Ur Amphetamines Screen Negative, U Benzodiazepines Scrn Positive H, Urine Cocaine Screen Negative, U Marijuana (THC) Screen Negative 09/01/24 15:15 09/01/24 15:15 Orders (Tests/Meds): ED MEDICATIONS Discontinued Medications Generic Name Dose Route Start Last Admin Trade Name Freq PRN Reason Stop Dose Admin Acetaminophen 1,000 mg 09/01/24 15:55 09/01/24 16:22 Acetaminophen 500mg Tab PO 09/01/24 15:56 1,000 mg ONCE ONE Administration Diphenhydramine HCl 50 mg 09/01/24 15:55 09/01/24 16:22 Diphenhydramine 50mg/Ml Vial IV 09/01/24 15:56 50 mg ONCE ONE Administration Lorazepam 1 mg 09/01/24 16:41 09/01/24 17:13 Lorazepam 2mg/Ml Vial IV 09/01/24 16:42 1 mg ONCE ONE Administration Ondansetron HCl 4 mg 09/01/24 15:55 09/01/24 16:23 Ondansetron 4mg/2ml Vial IV 09/01/24 15:56 4 mg ONCE ONE Administration Sodium Chloride 10 ml 09/01/24 16:41 Sodium Chloride 0.9% 10ml Vial IV 10/01/24 16:40 NEEDED PRN to Dilute Lorazepam inj ORDERS Category Date Time Status CT head/brain wo con Stat Cat Scan 09/01/24 15:55 Completed XR chest portable Stat Exams 09/01/24 15:54 Completed CBC w/Auto Diff [Complete Blood Count Auto Diff] Stat Lab 09/01/24 15:15 Completed CK [Creatine Kinase] Stat Lab 09/01/24 15:15 Completed CMP [Comprehensive Metabolic Panel] Stat Lab 09/01/24 15:15 Completed Lactic Acid Stat Lab 09/01/24 16:10 Completed Lipase Stat Lab 09/01/24 15:15 Completed Magnesium Stat Lab 09/01/24 15:15 Completed Myoglobin Stat Lab 09/01/24 15:15 Received Thyroid Panel Stat Lab 09/01/24 15:15 Completed Trop I [Troponin I] Stat Lab 09/01/24 15:15 Completed UA [Urinalysis and Microscopic] Stat Lab 09/01/24 16:41 Completed UDS [Drug Screen,Urine] Stat Lab 09/01/24 16:41 Completed VBG [Venous Blood Gas] Stat RT 09/01/24 15:58 Completed Medical Decision Narrative: In summary patient is a 49-year-old female who presents to the emergency department for evaluation of self-reported seizure. Patient is actually hemodynamically stable upon arrival, afebrile. Physical exam is remarkable actually for very tremulous anxious 49-year-old female who otherwise is in no acute distress. Differential diagnosis includes benzodiazepine withdrawal versus anxiety versus electrolyte abnormality etc. Initial workup will be conducted with hematologic labs twelve-lead EKG CT of the head without contrast. Initial interventions include crystalloid bolus 1 mg of Ativan IV push. Initial workup reviewed by me says that her hematologic labs are nonactionable venous blood gas shows a pH 7.44 venous lactic acid 1.4 troponins undetectable TSH is 1.27 urinalysis is bland urine drug screen positive for opiates for which she has a prescription in my informed interpretation of her CT scan does not show any evidence of acute intracranial abnormality prior to radiology read. Upon repeat evaluation patient had complete resolution of her tremulousness and it felt very calm. Given this patient is appropriate for discharge with referral to behavioral health for better anxiety management and medically supervised tapering off of her benzodiazepine and a prescription for Librium and strict return cautions. <Jyoti Jimenez, DO - Last Filed: 09/01/24 20:59> Darrius Inquiry Pt receiving controlled substance: Yes Darrius was queried for this patient: Yes Risks and benefits of using a controlled substance: were discussed with pt by me Vital Signs: 09/01/24 15:31 09/01/24 16:01 09/01/24 16:30 Temperature 98.3 F Temperature Source Oral Pulse Rate 83 68 Pulse Rate [Left] 95 H Respiratory Rate 19 20 13 Blood Pressure 130/85 141/94 H Blood Pressure [Right Arm] 151/90 H Blood Pressure Mean [Right Arm] 110 Blood Pressure Source [Right Arm] Automatic Cuff Blood Pressure Position [Right Arm] Sitting 02 Sat by Pulse Oximetry 97 97 96 Oxygen Delivery Method Room Air Room Air Room Air 09/01/24 17:19 09/01/24 17:30 09/01/24 18:18 Temperature 98.3 F Temperature Source Pulse Rate 74 74 77 Pulse Rate [Left] Respiratory Rate 14 Blood Pressure 104/47 L 118/64 122/76 Blood Pressure [Right Arm] Blood Pressure Mean [Right Arm] Blood Pressure Source [Right Arm] Blood Pressure Position [Right Arm] 02 Sat by Pulse Oximetry 98 98 Oxygen Delivery Method Room Air Room Air Room Air Lab Data Lab Results 09/01/24 15:15: WBC 7.7, RBC 4.40, Hgb 13.8, Hct 39.9, MCV 90.7, MCH 31.4 H, MCHC 34.6, RDW 11.9, Plt Count 304, MPV 11.1 H, Neut % (Auto) 43.7, Lymph % (Auto) 48.5, Divide % (Auto) 5.7, Eos % (Auto) 1.6, Baso % (Auto) 0.4, Neut # (Auto) 3.4, Lymph # (Auto) 3.8, Divide # (Auto) 0.4, Eos # (Auto) 0.1, Baso # (Auto) 0.0, Sodium 137, Potassium 3.9, Chloride 103, Carbon Dioxide 25, Anion Gap 12.9, BUN 17, Creatinine 0.70, Estimated Creat Clear 96, Estimated GFR 89, Est GFR ( Amer) 107, Glucose 93, Calcium 9.0, Magnesium 1.9, Total Bilirubin 0.4, AST 27, ALT 24, Alkaline Phosphatase 78, Total Creatine Kinase 57, Troponin I < 0.01, Total Protein 7.4, Albumin 4.6, Globulin 2.8, Albumin/Globulin Ratio 1.6, Lipase 44, TSH 1.27, Free T4 Index 2.6 L, Thyroxine (T4) 8.4, T3 Uptake 31 09/01/24 15:58: VBG pH 7.44 H, VBG pCO2 37.4, VBG pO2 36.1, VBG HCO3 24.6, VBG Total CO2 25.8, VBG O2 Saturation 70.4 H, VBG Base Excess 0.4, VBG Lactic Acid 1.4 09/01/24 16:10: Lactate 1.6 09/01/24 16:41: Urine Color Yellow, Urine Appearance Clear, Urine pH 7.0, Ur Specific [place] 1.015, Urine Protein Negative, Urine Glucose (UA) Negative, Urine Ketones Negative, Urine Blood Negative, Urine Nitrate Negative, Urine Bilirubin Negative, Urine Urobilinogen 0.2, Ur Leukocyte Esterase Negative, Urine RBC None, Urine WBC 3-5, Ur Squamous Epith Cells 3-5, Urine Bacteria Trace, Urine Mucus Trace, Urine Opiates Screen Positive H, Urine Methadone Screen Negative, Ur Barbituates Screen Negative, Ur Phencyclidine Scrn Negative, Ur Amphetamines Screen Negative, U Benzodiazepines Scrn Positive H, Urine Cocaine Screen Negative, U Marijuana (THC) Screen Negative Orders (Tests/Meds): ED MEDICATIONS Discontinued Medications Generic Name Dose Route Start Last Admin Trade Name Freq PRN Reason Stop Dose Admin Acetaminophen 1,000 mg 09/01/24 15:55 09/01/24 16:22 Acetaminophen 500mg Tab PO 09/01/24 15:56 1,000 mg ONCE ONE Administration Diphenhydramine HCl 50 mg 09/01/24 15:55 09/01/24 16:22 Diphenhydramine 50mg/Ml Vial IV 09/01/24 15:56 50 mg ONCE ONE Administration Lorazepam 1 mg 09/01/24 16:41 09/01/24 17:13 Lorazepam 2mg/Ml Vial IV 09/01/24 16:42 1 mg ONCE ONE Administration Ondansetron HCl 4 mg 09/01/24 15:55 09/01/24 16:23 Ondansetron 4mg/2ml Vial IV 09/01/24 15:56 4 mg ONCE ONE Administration Sodium Chloride 10 ml 09/01/24 16:41 Sodium Chloride 0.9% 10ml Vial IV 10/01/24 16:40 NEEDED PRN to Dilute Lorazepam inj ORDERS Category Date Time Status CT head/brain wo con Stat Cat Scan 09/01/24 15:55 Completed XR chest portable Stat Exams 09/01/24 15:54 Completed CBC w/Auto Diff [Complete Blood Count Auto Diff] Stat Lab 09/01/24 15:15 Completed CK [Creatine Kinase] Stat Lab 09/01/24 15:15 Completed CMP [Comprehensive Metabolic Panel] Stat Lab 09/01/24 15:15 Completed Lactic Acid Stat Lab 09/01/24 16:10 Completed Lipase Stat Lab 09/01/24 15:15 Completed Magnesium Stat Lab 09/01/24 15:15 Completed Myoglobin Stat Lab 09/01/24 15:15 Received Thyroid Panel Stat Lab 09/01/24 15:15 Completed Trop I [Troponin I] Stat Lab 09/01/24 15:15 Completed UA [Urinalysis and Microscopic] Stat Lab 09/01/24 16:41 Completed UDS [Drug Screen,Urine] Stat Lab 09/01/24 16:41 Completed VBG [Venous Blood Gas] Stat RT 09/01/24 15:58 Completed ECG Data Tracing #1: I reviewed this ECG and interpreted as documented below: Looks to be normal sinus rhythm with ventricular rate of 88 bpm, but motion artifact significantly degrades study. Normal axis from what I can tell. I do not see any obvious acute ST changes. ECG initial impression date: 09/01/24 ECG initial impression time: 16:30 Tracing #2: I reviewed this ECG and interpreted as documented below: Normal sinus rhythm with a ventricular of [address] changes concerning for ischemia. Normal axis and intervals. ECG initial impression date: 09/01/24 ECG initial impression time: 17:50 Critical Care <SALVADOR Montes - Last Filed: 09/02/24 00:14> Critical Care Time Critical Care Time: Yes Attestation: On 09/01/24, the high probability of a clinically significant, sudden or life threatening deterioration of the following system(s) required my full and direct attention, intervention and personal management. The time I documented below is in addition to time spent performing reported procedures but includes the following listed in this critical care notation. Total Time Total Critical Care Time: 35
--- NOTE | 2024-09-01 15:54 | XR_ITS ---
PROCEDURE INFORMATION: Exam: XR Chest Exam date and time: 09/01/2024 4:37 PM Age: 49 years old Clinical indication: Other: Seizures; Additional info: Leatha TECHNIQUE: Imaging protocol: Radiologic exam of the chest. Views: 1 view. COMPARISON: CR XR CHEST PORTABLE 05/13/2024 2:36 PM FINDINGS: Lungs: Unremarkable. No consolidation. Pleural spaces: Unremarkable. No pleural effusion. No pneumothorax. Heart/Mediastinum: Unremarkable. No cardiomegaly. Bones/joints: Unremarkable. IMPRESSION: No acute findings.
--- NOTE | 2024-09-01 15:55 | CT_ITS ---
PROCEDURE INFORMATION: Exam: CT Head Without Contrast Exam date and time: 09/01/2024 4:58 PM Age: 49 years old Clinical indication: Condition or disease; Convulsions or seizures; Additional info: Sz TECHNIQUE: Imaging protocol: Computed tomography of the head without contrast. Radiation optimization: All CT scans at this facility use at least one of these dose optimization techniques: automated exposure control; mA and/or kV adjustment per patient size (includes targeted exams where dose is matched to clinical indication); or iterative reconstruction. COMPARISON: CT ANGIO HEAD 05/13/2024 2:33 PM FINDINGS: Brain: Normal. No hemorrhage. Unremarkable white matter. No mass effect. Cerebral ventricles: No ventriculomegaly. Paranasal sinuses: Visualized sinuses are unremarkable. No fluid levels. Mastoid air cells: Visualized mastoid air cells are well aerated. Bones: Unremarkable. No acute fracture. Soft tissues: Unremarkable. IMPRESSION: No acute intracranial abnormality.
[2024-09-01 16:01] VITALS: BP 130/85; PULSE 83; RESP 20; O2SAT 97
[2024-09-01 16:05] LABS: Basophils % 0.4 % (0.1-2.0); Eosinophils # 0.1 K/mm3 (0.0-0.4); Eosinophils % 1.6 % (0.1-12.0); Hematocrit 39.9 % (37.0-47.0); Hemoglobin 13.8 g/dL (12.2-16.2); Lymphocytes # 3.8 K/mm3 (0.7-4.5); Lymphocytes % 48.5 % (10-50); Mean Corpuscular HGB Conc 34.6 g/dL (31.8-35.4); Mean Corpuscular Hemoglobin 31.4 pg (27.0-31.2); Mean Corpuscular Volume 90.7 fl (81-99); Mean Platelet Volume 11.1 fl (7.4-10.4); Monocytes # 0.4 K/mm3 (0.1-1.0); Monocytes % 5.7 % (1.7-9.3); Neutrophils # 3.4 K/mm3 (1.8-7.8); Neutrophils % 43.7 % (37.0-80.0); Platelet Count 304 K/mm3 (142-424); Red Cell Distribution Width 11.9 % (11.5-17.5); White Blood Count 7.7 K/mm3 (4.8-10.8)
--- NOTE | 2024-09-01 16:06 | PC.NURSE ---
RESPIRATORY NOTIFIED ON VBG
--- NOTE | 2024-09-01 16:12 | PC.NURSE ---
VBG WAS GIVEN TO RESP BY
[2024-09-01 16:16] LABS: Lactate Venous 1.4 mmol/L (0.4-2.0); VBG Base Excess 0.4 mmol/L (-2.4-2.3); VBG HCO3 24.6 mmol/L (23-30); VBG Oxygen Saturation 70.4 % (50-70); VBG PCO2 37.4 mmol/L (35-51); VBG PH 7.44 mmol/L (7.31-7.41); VBG PO2 36.1 mmol/L (28-40); VBG Total CO2 25.8 mmol/L (23-27)
[2024-09-01] MEDS: ACETAMINOPHEN 500MG TAB 1000 MG PO (16:22)
[2024-09-01] MEDS: diphenhydrAMINE 50MG/ML VIAL 50 MG IV (16:22)
[2024-09-01] MEDS: ONDANSETRON 4MG/2ML VIAL 4 MG IV (16:23)
[2024-09-01 16:30] VITALS: BP 141/94; PULSE 68; RESP 13; O2SAT 96
[2024-09-01 16:37] LABS: Lactic Acid 1.6 mmol/L (0.7-2.1)
[2024-09-01 16:39] LABS: Alanine Aminotransferase 24 U/L (12-78); Albumin Level 4.6 g/dl (3.5-5.0); Albumin/Globulin Ratio 1.6 (1.1-1.8); Alkaline Phosphatase 78 U/L (38-126); Aspartate Amino Transferase 27 U/L (14-36); Bilirubin,Total 0.4 mg/dl (0.2-1.3); Blood Urea Nitrogen 17 mg/dl (7-17); Carbon Dioxide 25 mmol/L (22.0-30.0); Chloride 103 mmol/L (98-107); Creatine Kinase 57 U/L (30-135); Creatinine Clearance Estimated 96 mL/min (50-200); Estimated Glomerular Filt Rate 89 ml/min (>60); GFR (African American) 107 ML/MIN (>60); Globulin 2.8 g/dL (1.3-3.2); Glucose 93 mg/dl (74-100); Lipase 44 U/L (23-300); Magnesium 1.9 mg/dl (1.6-2.3); Sodium 137 mmol/L (136-145); Total Protein,Serum 7.4 g/dl (6.3-8.2)
[2024-09-01 16:48] LABS: Microscopic, Urine URINE MICROSCOPIC (MICROSCOPIC)
[2024-09-01 16:56] LABS: Free Thyroxine Index 2.6 ug/dL (5.93-13.13); T4 (Thyroxine) 8.4 ug/dl (5.53-11.0); Triiodothryronine (T3) Uptake 31 % (23.5-40.5)
[2024-09-01 17:10] LABS: Thyroid Stimulating Hormone 1.27 uIU/mL (0.465-4.68)
[2024-09-01] MEDS: LORazepam 2MG/ML VIAL 1 MG IV (17:13)
[2024-09-01 17:15] LABS: Troponin I < 0.01 ng/ml (0.00-0.034)
[2024-09-01 17:19] VITALS: BP 104/47; PULSE 74; O2SAT 98
--- NOTE | 2024-09-01 17:19 | PC.NURSE ---
I rounded on the pt. She states she is feeling calmer than when she arrived. no needs voiced. call sol in reach.
[2024-09-01 17:30] VITALS: BP 118/64; PULSE 74; O2SAT 98
--- NOTE | 2024-09-01 17:44 | PC.NURSE ---
LAB HAS UA FROM PT STATES THEY ARE SLAMMED AND ONLY ONE TECH WORKING IN THAT DEPARTMENT AND WOULD RESULT SOON THEY COULD
[2024-09-01 17:46] LABS: Appearance,Urine CLEAR (Clear); Bilirubin,Urine Negative (Negative); Blood, Urine Negative (Negative); Color,Urine YELLOW (Yellow); Glucose,Urine (UA) Negative (Negative); Ketones,Urine Negative (Negative); Leukocyte Esterase,Urine Negative (Negative); Nitrate,Urine Negative (Negative); Protein,Urine Negative (Negative); Specific Gravity, Urine 1.015 (1.005-1.030); Urobilinogen,Urine 0.2 EU/dl (0.2)
--- NOTE | 2024-09-01 17:48 | ECG_ITS ---
APPROVED REPORT Exam: Resting ECG HR:69 bpm ECG Measurements Heart Rate 69 AXES NE 122 P 67 QRSd 87 QRS 80 QT 410 T 52 QTc 429 Conclusion SINUS RHYTHM NORMAL ECG UNCONFIRMED REPORT Electronically signed by : ROBLES ESPAÑA, 09/02/2024 06:50:19
[2024-09-01 18:09] LABS: Amphetamine/Metha Screen,Urine Negative ng/ml (<1000)
[2024-09-01 18:10] LABS: Barbiturates Screen,Urine Negative ng/ml (<200); Benzodiazepines Screen,Urine Positive ng/ml (<200)
[2024-09-01 18:11] LABS: Cocaine Screen,Urine Negative ng/ml (<300); Methadone Screen,Urine Negative ng/ml (<300)
[2024-09-01 18:12] LABS: Cannabinoid Screen,Urine Negative ng/ml (<50)
[2024-09-01 18:13] LABS: Opiate Screen,Urine Positive ng/ml (<300); Phencyclidine Screen,Urine Negative ng/ml (<25)
[2024-09-01 18:15] LABS: Anion Gap 12.9 mEq/L (5-15); Potassium 3.9 mmoL/L (3.5-5.1)
[2024-09-01 18:18] VITALS: BP 122/76; PULSE 77; RESP 14; TEMP 36.8; O2SAT 99
[2024-09-01 20:24] LABS: Bacteria,Urine Trace /lpf; Mucus,Urine Trace /lpf
[2024-09-02 12:12] LABS: Myoglobin 22 ng/mL (25-58)
== END 2024-09-01 18:19 | disposition home or self-care (01) ==
PROVIDERS: Physician Assistant; Emergency Provider Emergency Medicine; PCP Nurse Practitioner Family
DX: F13.939 Sedative, hypnotic or anxiolytic use, unspecified with withdrawal, unspecified (principal); F41.9 Anxiety disorder, unspecified; R56.9 Unspecified convulsions; F17.210 Nicotine dependence, cigarettes, uncomplicated
CPT/HCPCS: 70450; 71045; 80053; 80307; 81001; 82550; 82803; 83605; 83690; 83735; 83874; 84436; 84443; 84479; 84484; 85025; 93005; 96374; 96375; 99291; J1200; J2060; J2405

== ENCOUNTER 2024-10-04 15:07 | Outpatient (POV) | payer OTHER, SELFPAY ==
--- NOTE | 2024-10-04 15:47 | XR_ITS ---
FINAL REPORT CLINICAL HISTORY: neck pain x1d, no injury to neck. patient stated that she has had 2 surgeries on her neck years ago COMPARISON: None FINDINGS: Three views of the cervical spine were obtained. There is interbody fusion of C5-6. Anterior interbody fusion is noted at C6-7. There is no fracture present. There is no malalignment. There are small anterior osteophytes at C4-5. IMPRESSION: No acute process. Fusions of C5-6 and C6-7. Reviewed, Interpreted and Dictated by Nader De La Fuente MD Transcribed by Cinthia White Authenticated and [facility]
--- NOTE | 2024-10-04 16:14 | A.OFFVIS_ITS ---
[facility] Disclaimer: The information contained in this section may have been updated after the patient was seen, as this information can be updated by other users. Medical History (Updated 09/30/24 @ 15:49 by Bhumi Cohen APRN) Nerve pain Cervical radicular pain Sciatica Nightmares associated with chronic post-traumatic stress disorder Left leg pain Spell of altered consciousness Fall Urinary symptom or sign Lumbar radiculopathy Dizziness Dizziness Hypokalemia Anxiety Skin lesions Skin lesions, generalized Abnormal electrocardiogram [ECG] [EKG] Dyspnea Depression Strep pharyngitis Complete miscarriage Acute pain of left knee Arm pain, left Swelling of labia Allergic reaction caused by a drug UTI (urinary tract infection) No significant past medical history Rash and nonspecific skin eruption Generalized seizure COVID-19 Vomiting Headache Gastroenteritis Pharyngitis Exposure to COVID-19 virus Viral syndrome Chronic lumbar pain COPD exacerbation Strain of lumbar region Concussion Fall Seizure Medication reaction Lower extremity pain Functional abdominal pain syndrome Neck Pain Elbow pain Anxiety Cervical strain Acute bronchitis Bronchitis Surgical History History of kidney surgery History of D&C H/O: History of appendectomy History of partial hysterectomy H/O cervical spine surgery Family History Other Cancer Diabetes Heart attack Hypertension Stroke Social History Smoking Status: Current every day smoker tobacco type: cigarettes alcohol intake: never substance use type: denies use current occupational status: other Travel in the last 8 weeks: None household members: none housing: other PM Subjective & Objective Subjective Subjective:: Patient is a pleasant 49-year-old female who presents today for worsening neck pain as well as chronic low back and hip pain. Patient does rate her pain today a 6 out of 10. Patient states the neck symptoms just started last night. Patient states that she was not sure whether or not she slept funny but the pain is just constant. She states it severe. Patient does make mention that she is still also having the chronic low back and hip pain. Patient states that she was scheduled for those injections and finally got them approved however when the appointment came she was actually under the weather and had to cancel that appointment. Patient does state that she is interested in rescheduling those injections at this the pain is still interfering with her ability perform activities of daily living such as cooking and cleaning. Patient has continued conservative treatment. Her Darrius has been reviewed and is appropriate. Review of Systems: General: No recent weight changes, no fever, no sleep disturbances Respiratory: No cough, no shortness of air, no recurring pulmonary infections Cardiovascular/peripheral vascular: No chest pain, no palpitations, no edema, no shortness of breath Gastrointestinal: No new onset incontinence, normal bowel movements reported Genitourinary: No new onset incontinence Musculoskeletal: Neck pain, low back pain, bilateral hip pain Psychiatric: [Normal mood/affect] Neurological: [Denies weakness in extremities], [denies balance issues] Pain at rest (0-10 scale): 6 Objective Objective:: Physical Exam: General: Alert and oriented x3, no acute distress, pleasant and cooperative Lungs: Respirations even and unlabored, symmetrical chest expansion Eyes: PERRL Musculoskeletal: Flexion and extension of lumbar [spine] somewhat guarded secondary to pain, [antalgic gait noted] point tenderness along bilateral SIs with positive bilateral Tamica's, Daniel's, Gaenslen's, compression and distraction exam, point tenderness along her bilateral cervical paraspinous, lower cervical spine Neurological: Speech clear, no gross sensory deficit Has patient had previous pain injection?: No Conservative treatment options previously tried: Home exercise plan Length of treatment: Longer than 12 weeks Meds Home Medications and Allergies Home Medications ?Medication ?Instructions ?Recorded ?Confirmed ?Type albuterol sulfate 90 mcg/actuation 2 inh inhalation Q6H PRN shortness 08/29/23 09/30/24 Rx breath activated powder inhaler of breath or wheezing #1 ea budesonide-formoterol HFA 160 1 inh inhalation BID #10.2 grams 11/21/23 09/30/24 Rx mcg-4.5 mcg/actuation aerosol inhaler ipratropium 0.5 mg-albuterol 3 mg 3 ml inhalation Q6H PRN wheezing 11/21/23 09/30/24 Rx (2.5 mg base)/3 mL nebulization #180 mL soln rizatriptan 10 mg disintegrating See Rx Instructions PO .COMPLEX 03/02/24 09/30/24 Rx tablet (Maxalt-SOCIAL SERVICE COORDINATOR) #30 tabs diclofenac sodium 1 % topical gel 4 g topical QID #100 grams 04/29/24 09/30/24 Rx (Voltaren Arthritis Pain) lidocaine 4 % topical patch 1 patch topical DAILY PRN pain #30 04/29/24 09/30/24 Rx (Aspercreme (lidocaine)) ea atorvastatin 40 mg tablet 40 mg PO HS #90 tabs 06/11/24 09/30/24 Rx cholecalciferol (vitamin D3) 50 50 mcg PO DAILY #90 caps 06/11/24 09/30/24 Rx mcg (2,000 unit) capsule cyanocobalamin (vitamin B-12) 1,000 mcg PO DAILY #90 tabs 06/11/24 09/30/24 Rx 1,000 mcg tablet divalproex 250 mg tablet,delayed 500 mg (2 x 250 mg) PO HS #60 tabs 08/30/24 0 09/30/24 Rx release chlordiazepoxide HCl 10 mg capsule 10 mg PO HS PRN anxiety #30 caps 09/22/24 09/30/24 Rx desvenlafaxine succinate 25 mg 25 mg PO DAILY #90 tabs 09/22/24 09/30/24 Rx tablet,extended release 24 hr desvenlafaxine succinate 50 mg 50 mg PO DAILY #90 tabs 09/22/24 09/30/24 Rx tablet,extended release 24 hr levomefolate 15 mg-algal oil 1 cap PO DAILY #30 caps 09/22/24 09/30/24 Rx 90.314 mg capsule (L-Methylfolate Forte) hydrocodone 5 mg-acetaminophen 325 1 tab PO BID PRN pain #60 tabs 09/30/24 09/30/24 Rx mg tablet meclizine 12.5 mg tablet 12.5 mg PO DAILY 09/30/24 09/30/24 History quetiapine 100 mg tablet 50 mg PO HS PRN as needed 09/30/24 09/30/24 History naloxone 4 mg/actuation nasal 1 spray intranasal Q3M PRN opioid 10/01/2410/22 Rx spray (Narcan) overdose #2 ea New Prescriptions to Start Prescriptions: Allergies Allergy/AdvReac Type Severity Reaction Status Date / Time nitrous oxide Allergy Severe Unknown Verified 09/30/24 15:05 allergy reaction prednisone Allergy Mild shortness Verified 09/30/24 15:05 of breath codeine (CODEINE) Allergy Unknown Unknown Verified 09/30/24 15:05 allergy reaction fluoxetine (From PROZAC) Allergy Unknown Unknown Verified 09/30/24 15:05 allergy reaction ibuprofen (IBUPROFEN) Allergy Unknown Unknown Verified 09/30/24 15:05 allergy reaction latex (LATEX) Allergy Unknown Unknown Verified 09/30/24 15:05 allergy reaction loratadine (From CLARITIN) Allergy Unknown Unknown Verified 09/30/24 15:05 allergy reaction magnesium (MAGNESIUM) Allergy Unknown Unknown Verified 09/30/24 15:05 allergy reaction nitrofurantoin Allergy Unknown Unknown Verified 09/30/24 15:05 (NITROFURANTOIN) allergy reaction oxycodone (OXYCODONE) Allergy Unknown Unknown Verified 09/30/24 15:05 allergy reaction risperidone Allergy Unknown Unknown Verified 09/30/24 15:05 allergy reaction sumatriptan (SUMATRIPTAN) Allergy Unknown Unknown Verified 09/30/24 15:05 allergy reaction tramadol (TRAMADOL) Allergy Unknown Unknown Verified 09/30/24 15:05 allergy reaction trazodone (TRAZODONE) Allergy Unknown Altered Verified 09/30/24 15:05 Sense of Taste duloxetine Allergy Unknown Verified 09/30/24 15:05 allergy reaction metronidazole (From Flagyl) Allergy Hallucinati Verified 09/30/24 15:05 ons Assessment and Plan *Assessment and plan (1) Chronic lumbar pain: Status: Acute Qualifiers: Back pain laterality: left Sciatica laterality: sciatica of left side Sciatica presence: with sciatica Qualified Code(s): M54.42 - Lumbago with sciatica, left side; G89.29 - Other chronic pain Category: Medical Code(s): M54.50 - Low back pain, unspecified; G89.29 - Other chronic pain (2) Bilateral sacroiliitis: Status: Acute Category: Medical Code(s): M46.1 - Sacroiliitis, not elsewhere classified (3) Neck Pain: Status: Chronic Category: Medical Code(s): M54.2 - Cervicalgia Plan Due to her worsening neck pain and point tenderness, I will order x-ray imaging to confirm there is no immediate fractures. I did discuss whether ordering the patient prednisone 20 mg twice daily for 5 days however patient does have a previous allergy noted of shortness of breath. Patient states she does not recall what severity this was. I did also discuss possible muscle relaxers however she states that she would prefer not to do any additional medications than what she is already on. Patient does also make mention that she did recently have some of her medications changed by a outside provider. I did review over the risk and benefits of the SI injections that she was scheduled for however had to cancel due to illness. Patient does still have point tenderness bilaterally with a positive bilateral Tamica's, Daniel's, Gaenslen's, compression and distraction exam. Patient has tried and failed conservative therapy including continued at home stretching exercise for longer than 12 weeks. Patient has had this chronic pain for longer than 3 months. We will submit to insurance for the bilateral SI injections under fluoroscopy. Patient has been instructed to contact the clinic with any concerns before the next appointment. Dr. Rubio has reviewed this note and agrees with this plan of care. This note was dictated using voice recognition software and make contain errors or omissions. All injections are used with Lidocaine, Bupivacaine and Depo Medrol. Occasionally urine drug screen is needed to verify patient's compliance with our office pain contract. This is ordered based off specific treatments related to chronic pain with the potential to abuse certain medications.
[2024-10-04 16:19] VITALS: BP 113/40; PULSE 77; RESP 16; O2SAT 95; BMI 24.7
== END 2024-10-04 23:59 | disposition home or self-care (01) ==
PROVIDERS: Visit Provider Nurse Practitioner Family
DX: M54.2 Cervicalgia (principal); M54.42 Lumbago with sciatica, left side; G89.29 Other chronic pain; M46.1 Sacroiliitis, not elsewhere classified; F17.210 Nicotine dependence, cigarettes, uncomplicated; Z73.89 Other problems related to life management difficulty; Z79.899 Other long term (current) drug therapy
CPT/HCPCS: 72040; 99212; G0463

== ENCOUNTER 2024-10-13 10:58 | Outpatient (POV) | payer OTHER, SELFPAY ==
--- NOTE | 2024-10-13 11:32 | EXP.PAIN.SOA ---
[facility] Disclaimer: The information contained in this section may have been updated after the patient was seen, as this information can be updated by other users. Medical History Nerve pain Cervical radicular pain Sciatica Nightmares associated with chronic post-traumatic stress disorder Left leg pain Spell of altered consciousness Fall Urinary symptom or sign Lumbar radiculopathy Dizziness Dizziness Hypokalemia Anxiety Skin lesions Skin lesions, generalized Abnormal electrocardiogram [ECG] [EKG] Dyspnea Depression Strep pharyngitis Complete miscarriage Acute pain of left knee Arm pain, left Swelling of labia Allergic reaction caused by a drug UTI (urinary tract infection) No significant past medical history Rash and nonspecific skin eruption Generalized seizure COVID-19 Vomiting Headache Gastroenteritis Pharyngitis Exposure to COVID-19 virus Viral syndrome Chronic lumbar pain COPD exacerbation Strain of lumbar region Concussion Fall Seizure Medication reaction Lower extremity pain Functional abdominal pain syndrome Neck Pain Elbow pain Anxiety Cervical strain Acute bronchitis Bronchitis Surgical History History of kidney surgery History of D&C H/O: History of appendectomy History of partial hysterectomy H/O cervical spine surgery Family History Other Cancer Diabetes Heart attack Hypertension Stroke Social History Smoking Status: Current every day smoker tobacco type: cigarettes alcohol intake: never substance use type: denies use current occupational status: other Travel in the last 8 weeks: None household members: none housing: other Have you lived/traveled outside [place] in past 30 days?: No Contact w/someone who lives/traveled outside [place] past 30 days?: No Exposure to someone with infectious disease in past 14 days?: No Do you have a fever (greater than 100.4 F or 38 C)?: No Have you tested positive for COVID-19: No Exposed to someone with COVID-19 in past 14 days?: No Do you have a sore throat?: No Do you have a cough?: No Do you have any weakness?: No Do you have any diarrhea?: No Are you experiencing any unusual bleeding?: No Do you have any muscle aches/pain?: No Do you have any abdominal pain?: No Are you experiencing loss of taste or smell?: No PM Subjective & Objective Subjective Subjective:: Patient is a pleasant 49-year-old female who presents today for 1 week follow-up of worsening neck pain as well as x-ray imaging. Today she rates her pain a 3 out of 10. She states she did just take a pain pill. Patient denies any new falls or injuries. She does state that she is still having the neck pain but that it has gotten a little bit better but still feels like it will lock up in place and she has to move it around and manipulated before getting improvement. Patient does also still have the chronic low back and hip pain and is scheduled for her SI injections coming up. Patient does state that previously the compounded cream that we had ordered her did really seem like it helps however she does not think that she has refills patient does state that the medicine change that her other doctor did is causing her quite a bit of issues. She states that she is not sleeping and not having appetite like what she had. Patient does state that they took away one of her pain medication tablets and that she is trying to adjust to that. Patient does make mention that she has thought about seeing about medical marijuana. Patient states that the other office did state that to talk to others about pain medication. Her Darrius has been reviewed and is appropriate. Review of Systems: General: No recent weight changes, no fever, no sleep disturbances Respiratory: No cough, no shortness of air, no recurring pulmonary infections Cardiovascular/peripheral vascular: No chest pain, no palpitations, no edema, no shortness of breath Gastrointestinal: No new onset incontinence, normal bowel movements reported Genitourinary: No new onset incontinence Musculoskeletal: Bilateral hip pain, low back pain, neck pain Psychiatric: [Normal mood/affect] Neurological: [Denies weakness in extremities], [denies balance issues] Pain at rest (0-10 scale): 3 Objective Objective:: Physical Exam: General: Alert and oriented x3, no acute distress, pleasant and cooperative Lungs: Respirations even and unlabored, symmetrical chest expansion Eyes: PERRL Musculoskeletal: Flexion and extension of lumbar [spine] somewhat guarded secondary to pain, [antalgic gait noted] Neurological: Speech clear, no gross sensory deficit Has patient had previous pain injection?: No Conservative treatment options previously tried: Home exercise plan Length of treatment: Longer than 12 weeks Meds Home Medications and Allergies Home Medications ?Medication ?Instructions ?Recorded ?Confirmed ?Type albuterol sulfate 90 mcg/actuation 2 inh inhalation Q6H PRN shortness 08/29/23 10/04/24 Rx breath activated powder inhaler of breath or wheezing #1 ea budesonide-formoterol HFA 160 1 inh inhalation BID #10.2 grams 11/21/23 10/04/24 Rx mcg-4.5 mcg/actuation aerosol inhaler ipratropium 0.5 mg-albuterol 3 mg 3 ml inhalation Q6H PRN wheezing 11/21/23 10/04/24 Rx (2.5 mg base)/3 mL nebulization #180 mL soln rizatriptan 10 mg disintegrating See Rx Instructions PO .COMPLEX 03/02/24 10/04/24 Rx tablet (Maxalt-LINK TRAINER TEACHER) #30 tabs diclofenac sodium 1 % topical gel 4 g topical QID #100 grams 04/29/24 10/04/24 Rx (Voltaren Arthritis Pain) lidocaine 4 % topical patch 1 patch topical DAILY PRN pain #30 04/29/24 10/04/24 Rx (Aspercreme (lidocaine)) ea atorvastatin 40 mg tablet 40 mg PO HS #90 tabs 06/11/24 10/04/24 Rx cholecalciferol (vitamin D3) 50 50 mcg PO DAILY #90 caps 06/11/24 10/04/24 Rx mcg (2,000 unit) capsule cyanocobalamin (vitamin B-12) 1,000 mcg PO DAILY #90 tabs 06/11/24 10/04/24 Rx 1,000 mcg tablet divalproex 250 mg tablet,delayed 500 mg (2 x 250 mg) PO HS #60 tabs 08/30/24 10/04/24 Rx release chlordiazepoxide HCl 10 mg capsule 10 mg PO HS PRN anxiety #30 caps 09/22/24 10/04/24 Rx desvenlafaxine succinate 25 mg 25 mg PO DAILY #90 tabs 09/22/24 10/04/24 Rx tablet,extended release 24 hr desvenlafaxine succinate 50 mg 50 mg PO DAILY #90 tabs 09/22/24 10/04/24 Rx tablet,extended release 24 hr levomefolate 15 mg-algal oil 1 cap PO DAILY #30 caps 09/22/24 10/04/24 Rx 90.314 mg capsule (L-Methylfolate Forte) hydrocodone 5 mg-acetaminophen 325 1 tab PO BID PRN pain #60 tabs 09/30/24 10/04/24 Rx mg tablet meclizine 12.5 mg tablet 12.5 mg PO DAILY 09/30/24 10/04/24 History quetiapine 100 mg tablet 50 mg PO HS PRN as needed 09/30/24 10/04/24 History naloxone 4 mg/actuation nasal 1 spray intranasal Q3M PRN opioid 10/01/24 10/04/24 Rx spray (Narcan) overdose #2 ea New Prescriptions to Start Prescriptions: Allergies Allergy/AdvReac Type Severity Reaction Status Date / Time nitrous oxide Allergy Severe Unknown Verified 09/30/24 15:05 allergy reaction prednisone Allergy Mild shortness Verified 09/30/24 15:05 of breath codeine (CODEINE) Allergy Unknown Unknown Verified 09/30/24 15:05 allergy reaction fluoxetine (From PROZAC) Allergy Unknown Unknown Verified 09/30/24 15:05 allergy reaction ibuprofen (IBUPROFEN) Allergy Unknown Unknown Verified 09/30/24 15:05 allergy reaction latex (LATEX) Allergy Unknown Unknown Verified 09/30/24 15:05 allergy reaction loratadine (From CLARITIN) Allergy Unknown Unknown Verified 09/30/24 15:05 allergy reaction magnesium (MAGNESIUM) Allergy Unknown Unknown Verified 09/30/24 15:05 allergy reaction nitrofurantoin Allergy Unknown Unknown Verified 09/30/24 15:05 (NITROFURANTOIN) allergy reaction oxycodone (OXYCODONE) Allergy Unknown Unknown Verified 09/30/24 15:05 allergy reaction risperidone Allergy Unknown Unknown Verified 09/30/24 15:05 allergy reaction sumatriptan (SUMATRIPTAN) Allergy Unknown Unknown Verified 09/30/24 15:05 allergy reaction tramadol (TRAMADOL) Allergy Unknown Unknown Verified 09/30/24 15:05 allergy reaction trazodone (TRAZODONE) Allergy Unknown Altered Verified 09/30/24 15:05 Sense of Taste duloxetine Allergy Unknown Verified 09/30/24 15:05 allergy reaction metronidazole (From Flagyl) Allergy Hallucinati Verified 09/30/24 15:05 ons Assessment and Plan *Assessment and plan (1) Bilateral sacroiliitis: Status: Acute Category: Medical Code(s): M46.1 - Sacroiliitis, not elsewhere classified (2) Neck Pain: Status: Chronic Category: Medical Code(s): M54.2 - Cervicalgia Plan I did discuss with the patient that we would be doing more the injections and the compounded cream and that we would not be doing any oral opioids. Patient acknowledges understanding. I did discuss with her that there are different offices that deal with the medical marijuana however we would not be able to help and I do not have any providers right offhand that I could give recommendation regarding this. Patient will be given her date and time of her upcoming SI injections. We will follow-up with her following this. I will send in refills on her compounded cream. Patient will be coming in for her SI injections. Patient has been instructed to contact the clinic with any concerns before the next appointment. Dr. Rubio has reviewed this note and agrees with this plan of care. This note was dictated using voice recognition software and make contain errors or omissions. All injections are used with Lidocaine, Bupivacaine and Depo Medrol. Occasionally urine drug screen is needed to verify patient's compliance with our office pain contract. This is ordered based off specific treatments related to chronic pain with the potential to abuse certain medications.
[2024-10-13 11:45] VITALS: BP 133/70; PULSE 88; RESP 14; O2SAT 98; BMI 24.7
== END 2024-10-13 23:59 | disposition home or self-care (01) ==
LOC: SC.PAIN 11:00
PROVIDERS: PCP Nurse Practitioner Family; Visit Provider Nurse Practitioner Family
DX: M46.1 Sacroiliitis, not elsewhere classified (principal); M54.2 Cervicalgia; F17.210 Nicotine dependence, cigarettes, uncomplicated; Z79.899 Other long term (current) drug therapy
CPT/HCPCS: 99212; G0463

== ENCOUNTER 2024-11-09 13:51 | Day surgery (SDC) | payer OTHER, SELFPAY ==
[2024-11-09 14:03] VITALS: BP 128/78; PULSE 69; RESP 16; TEMP 36.4; O2SAT 98; BMI 25.8
[2024-11-09] MEDS: BUPIVACAINE 0.25% 10ML INJ 25 MG IJ (14:11)
[2024-11-09] MEDS: LIDOCAINE 1% 5ML PF VIAL 5 ML (14:11)
[2024-11-09] MEDS: DEXAMETHASONE 10MG/ML 1ML VIAL 10 MG (14:12)
[2024-11-09 14:13] VITALS: BP 131/77; PULSE 69; RESP 18; O2SAT 98
[2024-11-09 14:14] VITALS: BP 131/77; PULSE 67; RESP 18; O2SAT 98
--- NOTE | 2024-11-09 14:15 | P.PCN_ITS ---
Procedure Date: 11/09/24 Time: 14:00 Anesthesiologist:: Jacoby Claros CRNA Complications:: None Pre-procedure Diagnosis:: Bilateral sacroiliitis Post-procedure Diagnosis:: Same Indications for Procedure:: Patient is a very pleasant 49-year-old female who comes our clinic today for bilateral sacroiliac joint injections cortisone local anesthetic. Patient describes low lumbar back pain off the midline bilaterally. Bilateral posterior hip pain. Difficulty transitioning from sitting to standing. She rates her pain 7/10. Procedure Details:: Procedure: Bilateral sacroiliac joint injections under fluoroscopy Informed consent was obtained and the risks and benefits of the procedure were explained to the patient.~ The patient was taken to the procedure room and noninvasive monitors were placed including a noninvasive blood pressure cuff and pulse oximeter.~ The patient was placed prone on the procedure table. Both hips were cleansed using Betadine as a cleansing solution. C-arm fluoroscopy was used to view the right sacroiliac joint.~ The skin and subcutaneous tissues were anesthetized using lidocaine 1.5% and a 25-gauge needle.~ After this, a 22-gauge spinal needle was inserted under fluoroscopic guidance into the inferior aspect of the right sacroiliac joint.~ Omnipaque dye was injected and good spread was seen throughout the joint.~ After this, approximately 5 mL of bupivacaine, 0.25% and Depo-Medrol, 40 mg was incrementally injected into the right sacroiliac joint. We then moved to the left sacroiliac joint.~ The skin and subcutaneous tissues were anesthetized using lidocaine 1.5% and a 25-gauge needle.~ After this, a 22- gauge spinal needle was inserted under fluoroscopic guidance into the inferior aspect of the left sacroiliac joint.~ Omnipaque dye was injected and good spread was seen throughout the joint. After this, approximately 5 mL of bupivacaine, 0.25% and Depo-Medrol, 40 mg was incrementally injected into the left sacroiliac joint.~ The patient tolerated the procedure well with no complications. The patient was observed in the Pain Clinic and then was discharged home neurologically intact. Plan and Disposition:: Patient was discharged without incident.
[2024-11-09 14:21] VITALS: BP 108/67; PULSE 65; RESP 16; O2SAT 99
== END 2024-11-09 14:21 | disposition home or self-care (01) ==
PROVIDERS: PCP Nurse Practitioner Family; Visit Provider Nurse Anesthetist, Certified Registered
DX: M46.1 Sacroiliitis, not elsewhere classified (principal)
CPT/HCPCS: G0260; J1100

== ENCOUNTER 2024-11-19 22:51 | Emergency (ER) | payer OTHER, SELFPAY ==
[2024-11-19 22:54] VITALS: BP 118/61; PULSE 81; RESP 18; TEMP 36.6; O2SAT 99; BMI 24.7
--- NOTE | 2024-11-19 23:06 | ED_ITS ---
Discharge Plan Disposition Patient Disposition: Home, Self-Care Condition: Good Prescriptions Prescriptions: New ondansetron HCl 4 mg tablet 4 mg PO Q8H PRN (Reason: nausea and vomiting) 5 Days Qty: 30 0RF No Action rizatriptan [Maxalt-[employer]SI[employer]ER] 10 mg tablet,disintegrating See Rx Instructions PO .COMPLEX Qty: 30 0RF Rx Instructions: take 1 tab at onset of headache; if no relief may repeat 1 tab after at least 2 hrs; max = 3 tabs/24 hr PO diclofenac sodium [Voltaren Arthritis Pain] 1 % gel 4 g topical QID Qty: 100 2RF Rx Instructions: apply to single knee, ankle, foot; for foot includes sole/toes/top of foot lidocaine [Aspercreme (lidocaine)] 4 % adhesive patch,medicated 1 patch topical DAILY PRN (Reason: pain) Qty: 30 0RF levomefolate-algal oil [L-Methylfolate Forte] 15-90.314 mg capsule 1 cap PO DAILY Qty: 30 11RF divalproex 250 mg tablet,delayed release (DR/EC) 500 mg PO HS Qty: 60 11RF Rx Instructions: TAKE TWO TABLETS BY MOUTH EVERY DAY AT BEDTIME FOR seizures desvenlafaxine succinate 25 mg tablet extended release 24 hr 25 mg PO DAILY Qty: 30 2RF Rx Instructions: Take with a 50mg tablet for a total of 75mg daily. desvenlafaxine succinate 50 mg tablet extended release 24 hr 50 mg PO DAILY Qty: 30 2RF Rx Instructions: Take with a 25mg tablet for a total of 75mg daily. meclizine 12.5 mg tablet 12.5 mg PO DAILY quetiapine 100 mg tablet 50 mg PO HS PRN (Reason: as needed) naloxone [Narcan] 4 mg/actuation spray,non-aerosol 1 spray intranasal Q3M PRN (Reason: opioid overdose) Qty: 2 0RF Rx Instructions: spray 1 dose into ONE nostril; alternate nostrils w each dose until help arrives albuterol sulfate 90 mcg/actuation aerosol powdr breath activated 2 inh inhalation Q6H PRN (Reason: shortness of breath or wheezing) Qty: 1 2RF atorvastatin 40 mg tablet 40 mg PO HS Qty: 90 3RF cyanocobalamin (vitamin B-12) 1,000 mcg tablet 1,000 mcg PO DAILY Qty: 90 3RF cholecalciferol (vitamin D3) 50 mcg (2,000 unit) capsule 50 mcg PO DAILY Qty: 90 3RF hydrocodone-acetaminophen 5-325 mg tablet 1 tab PO DAILY PRN (Reason: pain) Qty: 30 0RF diazepam 5 mg tablet 5 mg PO HS PRN (Reason: anxiety) Qty: 30 0RF budesonide-formoterol 160-4.5 mcg/actuation HFA aerosol inhaler 1 inh inhalation BID Qty: 10.2 2RF ipratropium-albuterol 0.5 mg-3 mg(2.5 mg base)/3 mL solution for nebulization 3 ml inhalation Q6H PRN (Reason: wheezing) Qty: 180 1RF Referrals Follow up/Referrals: Bhumi Cohen APRN [Primary Care Provider] - See instructions Activity Restrictions/Add. Instructions Additional Instructions/Restrictions: Please follow-up with your primary care provider. Please return to the emergency department if you develop any new or worsening symptoms or become concerned for your health. We will call you if your stool sample returns with a abnormal result. Please take Zofran as needed for nausea and vomiting. Clinical Impressions Clinical Impression: Abdominal pain, Diarrhea Instructions Patient Instructions: DI for Acute Abdominal Pain Print Language Print Language: Romanian Discharge ED Provider: Дмитрий Britton Adult HPI General Chief complaint: Abdominal Pain Stated complaint: Abdominal Pain; Swollen in Abdomen Time Seen by Provider: 11/19/24 23:04 Mode of Arrival: Ambulatory Source of Information: Patient Description of Symptoms (Recalled from ER Triage Doc. by RN): Pt presents for evaluation of abdominal pain x several days, vomiting, diarrhea, and has dark tarry stools. Pt states this started after she ate at [employer] pizza several days ago History of Present Illness HPI narrative: 49-year-old female with with 3 of anxiety,, history of partial hysterectomy, no other normal. Presents for lower abdominal pain. She reports that it has been ongoing for the last couple of days but got significantly worse today. She has had some episodes of vomiting and is also had some diarrhea. Reports that her diarrhea looked darker than normal. Pain worsened after eating pizza today. Nothing like this has happened before. Related Data Home Medications ?Medication ?Instructions ?Recorded ?Confirmed meclizine 12.5 mg tablet 12.5 mg PO DAILY 04/03/25 05/13/25 quetiapine 100 mg tablet 50 mg PO HS PRN as needed 09/30/24 11/09/24 Previous Rx's ?Medication ?Instructions ?Recorded albuterol sulfate 90 mcg/actuation 2 inh inhalation Q6H PRN shortness 08/29/23 breath activated powder inhaler of breath or wheezing #1 ea budesonide-formoterol HFA 160 1 inh inhalation BID #10.2 grams 11/21/23 mcg-4.5 mcg/actuation aerosol inhaler ipratropium 0.5 mg-albuterol 3 mg 3 ml inhalation Q6H PRN wheezing 11/21/23 (2.5 mg base)/3 mL nebulization #180 mL soln rizatriptan 10 mg disintegrating See Rx Instructions PO .COMPLEX 03/02/24 tablet (Maxalt-[employer]ER) #30 tabs diclofenac sodium 1 % topical gel 4 g topical QID #100 grams 04/29/24 (Voltaren Arthritis Pain) lidocaine 4 % topical patch 1 patch topical DAILY PRN pain #30 04/29/24 (Aspercreme (lidocaine)) ea atorvastatin 40 mg tablet 40 mg PO HS #90 tabs 06/11/24 cholecalciferol (vitamin D3) 50 50 mcg PO DAILY #90 caps 06/11/24 mcg (2,000 unit) capsule cyanocobalamin (vitamin B-12) 1,000 mcg PO DAILY #90 tabs 06/11/24 1,000 mcg tablet levomefolate 15 mg-algal oil 1 cap PO DAILY #30 caps 09/22/24 90.314 mg capsule (L-Methylfolate Forte) naloxone 4 mg/actuation nasal 1 spray intranasal Q3M PRN opioid 10/01/24 spray (Narcan) overdose #2 ea desvenlafaxine succinate 25 mg 25 mg PO DAILY #30 tabs 10/27/24 tablet,extended release 24 hr desvenlafaxine succinate 50 mg 50 mg PO DAILY #30 tabs 10/27/24 tablet,extended release 24 hr divalproex 250 mg tablet,delayed 500 mg (2 x 250 mg) PO HS #60 tabs 10/27/24 release hydrocodone 5 mg-acetaminophen 325 1 tab PO DAILY PRN pain #30 tabs 05/06/25 mg tablet diazepam 5 mg tablet 5 mg PO HS PRN anxiety #30 tabs 11/19/24 ondansetron HCl 4 mg tablet 4 mg PO Q8H PRN nausea and 11/20/24 vomiting 5 days #30 tabs Allergies Allergy/AdvReac Type Severity Reaction Status Date / Time nitrous oxide Allergy Severe Unknown Verified 10/27/24 14:35 allergy reaction prednisone Allergy Mild shortness Verified 10/27/24 14:35 of breath codeine (CODEINE) Allergy Unknown Unknown Verified 10/27/24 14:35 allergy reaction fluoxetine (From PROZAC) Allergy Unknown Unknown Verified 10/27/24 14:35 allergy reaction ibuprofen (IBUPROFEN) Allergy Unknown Unknown Verified 10/27/24 14:35 allergy reaction latex (LATEX) Allergy Unknown Unknown Verified 10/27/24 14:35 allergy reaction loratadine (From CLARITIN) Allergy Unknown Unknown Verified 10/27/24 14:35 allergy reaction magnesium (MAGNESIUM) Allergy Unknown Unknown Verified 10/27/24 14:35 allergy reaction nitrofurantoin Allergy Unknown Unknown Verified 10/27/24 14:35 (NITROFURANTOIN) allergy reaction oxycodone (OXYCODONE) Allergy Unknown Unknown Verified 10/27/24 14:35 allergy reaction risperidone Allergy Unknown Unknown Verified 10/27/24 14:35 allergy reaction sumatriptan (SUMATRIPTAN) Allergy Unknown Unknown Verified 10/27/24 14:35 allergy reaction tramadol (TRAMADOL) Allergy Unknown Unknown Verified 10/27/24 14:35 allergy reaction trazodone (TRAZODONE) Allergy Unknown Altered Verified 10/27/24 14:35 Sense of Taste duloxetine Allergy Unknown Verified 10/27/24 14:35 allergy reaction metronidazole (From Flagyl) Allergy Hallucinati Verified 10/27/24 14:35 ons [facility] Disclaimer: The information contained in this section may have been updated after the patient was seen, as this information can be updated by other users. Medical History Nerve pain Cervical radicular pain Sciatica Nightmares associated with chronic post-traumatic stress disorder Left leg pain Spell of altered consciousness Fall Urinary symptom or sign Lumbar radiculopathy Dizziness Dizziness Hypokalemia Anxiety Skin lesions Skin lesions, generalized Abnormal electrocardiogram [ECG] [EKG] Dyspnea Depression Strep pharyngitis Complete miscarriage Acute pain of left knee Arm pain, left Swelling of labia Allergic reaction caused by a drug UTI (urinary tract infection) No significant past medical history Rash and nonspecific skin eruption Generalized seizure COVID-19 Vomiting Headache Gastroenteritis Pharyngitis Exposure to COVID-19 virus Viral syndrome Chronic lumbar pain COPD exacerbation Strain of lumbar region Concussion Fall Seizure Medication reaction Lower extremity pain Functional abdominal pain syndrome Neck Pain Elbow pain Anxiety Valium was prescribed by psychiatrist in [place] Cervical strain Acute bronchitis Bronchitis Surgical History History of kidney surgery History of D&C H/O: History of appendectomy History of partial hysterectomy H/O cervical spine surgery Family History Other Cancer Diabetes Heart attack Hypertension Stroke Social History Smoking Status: Never smoker alcohol intake: never substance use type: denies use current occupational status: other Travel in the last 8 weeks?: None household members: none housing: other Have you lived/traveled outside [place] in past 30 days?: No Contact w/someone who lives/traveled outside [place] past 30 days?: No Exposure to someone with infectious disease in past 14 days?: No Do you have a fever (greater than 100.4 F or 38 C)?: No Have you tested positive for COVID-19?: No Exposed to someone with COVID-19 in past 14 days?: No Do you have a sore throat?: No Do you have a cough?: No Do you have any weakness?: No Do you have any diarrhea?: No Are you experiencing any unusual bleeding?: No Do you have any muscle aches/pain?: No Do you have any abdominal pain?: No Are you experiencing loss of taste or smell?: No Other Medical History Have you received the Flu Vaccine for this season: No Have you received the Pneumonia Vaccine: No ROS Obtained: Yes All systems reviewed & no additional complaints except as documented Physical Exam General General appearance: alert and in no apparent distress Head Head exam: atraumatic and normocephalic Eye Eye exam: Present normal appearance, PERRL and EOMI ENT ENT exam: Present normal oropharynx and normal external ear exam Neck Neck exam: Present normal inspection and full ROM Chest Chest inspection: Present normal inspection and symmetric chest wall rise; Absent tenderness Respiratory Respiratory exam: Present normal lung sounds bilaterally; Absent respiratory distress Cardiovascular Cardiovascular exam: Present regular rate and normal rhythm Abdominal Exam Abdominal exam: Present soft, distention and tenderness (Significant left lower quadrant tenderness to palpation); Absent guarding Extremities Exam Extremities exam: Present normal inspection; Absent edema or joint swelling Back Exam Back exam: Present normal inspection; Absent tenderness Neurological Exam Neurological exam: Present alert and oriented X3; Absent motor sensory deficit Psychiatric Psychiatric exam: Present normal affect and normal mood Skin Skin exam: Present warm, dry and normal color Lymphatic Lymphatic Findings: no adenopathy Medical Decision Making Medical Records Medical records reviewed: Yes I reviewed the patient's medical records. Screening: Per USPSTF and CDC recommendations, given the prevalence of disease in our region, it is our hospital?s policy to screen for HIV and viral Hepatitis for all patients aged 18 and over and those with ongoing risk factors. Darrius Inquiry Pt receiving controlled substance: No Darrius was queried for this patient: No Vital Signs: 11/19/24 22:54 11/19/24 23:30 11/20/24 00:02 Temperature 97.9 F Temperature Source Oral Pulse Rate 83 69 Pulse Rate [Right] 81 Respiratory Rate 18 Blood Pressure 127/86 Blood Pressure [Right Arm] 118/61 Blood Pressure Mean 101 Blood Pressure Mean [Right Arm] 80 Blood Pressure Source Blood Pressure Source [Right Arm] Automatic Cuff Blood Pressure Position Blood Pressure Position [Right Arm] Sitting 02 Sat by Pulse Oximetry 99 98 98 Oxygen Delivery Method Room Air 11/20/24 00:13 11/20/24 00:38 11/20/24 01:00 Temperature Temperature Source Pulse Rate 64 66 64 Pulse Rate [Right] Respiratory Rate Blood Pressure 120/61 125/77 130/78 Blood Pressure [Right Arm] Blood Pressure Mean Blood Pressure Mean [Right Arm] Blood Pressure Source Blood Pressure Source [Right Arm] Blood Pressure Position Blood Pressure Position [Right Arm] 02 Sat by Pulse Oximetry 98 100 99 Oxygen Delivery Method 11/20/24 01:31 11/20/24 02:00 11/20/24 02:49 Temperature 97.9 F Temperature Source Oral Pulse Rate 83 75 66 Pulse Rate [Right] Respiratory Rate 16 Blood Pressure 134/71 142/83 H 145/79 H Blood Pressure [Right Arm] Blood Pressure Mean Blood Pressure Mean [Right Arm] Blood Pressure Source Automatic Cuff Blood Pressure Source [Right Arm] Blood Pressure Position Supine Blood Pressure Position [Right Arm] 02 Sat by Pulse Oximetry 100 98 Oxygen Delivery Method Room Air Lab Data Lab results reviewed: Yes I reviewed the patient's lab results. Lab Results 11/19/24 00:25: Lactate 1.4 11/19/24 23:01: Urine Color Yellow, Urine Appearance Slightly cloudy, Urine pH 8.0, Ur Specific [place] 1.015, Urine Protein Negative, Urine Glucose (UA) Negative, Urine Ketones Trace, Urine Blood Negative, Urine Nitrate Negative, Urine Bilirubin Negative, Urine Urobilinogen 0.2, Ur Leukocyte Esterase Negative, Urine RBC 3-5, Urine WBC 3-5, Ur Squamous Epith Cells Tntc, Urine Bacteria 4+ 11/19/24 23:10: WBC 11.6 H, RBC 4.30, Hgb 13.7, Hct 39.5, MCV 91.9, MCH 31.9 H, MCHC 34.7, RDW 12.3, Plt Count 282, MPV 11.0 H, Neut % (Auto) 57.6, Lymph % (Auto) 34.2, [place] % (Auto) 6.4, Eos % (Auto) 0.9, Baso % (Auto) 0.4, Neut # (Auto) 6.7, Lymph # (Auto) 4.0, [place] # (Auto) 0.7, Eos # (Auto) 0.1, Baso # (Auto) 0.1, Sodium 139, Potassium 4.0, Chloride 103, Carbon Dioxide 31 H, Anion Gap 9.0, BUN 10, Creatinine 0.70, Estimated Creat Clear 96, Estimated GFR 89, Est GFR ( Amer) 107, Glucose 112 H, Calcium 8.8, Magnesium 2.0, Total Bilirubin 0.4, AST 27, ALT 22, Alkaline Phosphatase 83, Total Protein 7.0, Albumin 4.4, Globulin 2.6, Albumin/Globulin Ratio 1.7, Lipase 39 11/20/24 00:30: Urine Color Yellow, Urine Appearance Clear, Urine pH 8.5, Ur Specific [place] 1.010, Urine Protein Negative, Urine Glucose (UA) Negative, Urine Ketones Negative, Urine Blood Negative, Urine Nitrate Negative, Urine Bilirubin Negative, Urine Urobilinogen 0.2, Ur Leukocyte Esterase Negative, Urine RBC Occasional, Urine WBC 3-5, Ur Squamous Epith Cells 5-10, Urine Bacteria 1+ 11/19/24 23:10 11/19/24 23:10 Orders (Tests/Meds): ED MEDICATIONS Discontinued Medications Generic Name Dose Route Start Last Admin Trade Name John PRN Reason Stop Dose Admin Acetaminophen 1,000 mg 11/19/24 23:10 11/19/24 23:21 Acetaminophen 500mg Tab PO 11/19/24 23:11 1,000 mg ONCE ONE Administration Hydromorphone HCl 0.5 mg 11/19/24 23:10 11/19/24 23:22 Hydromorphone 2mg/Ml Syringe IV 11/19/24 23:11 0.5 mg ONCE ONE Administration Lactated Ringer's 1,000 mls @ 999 mls/hr 11/19/24 23:15 11/19/24 23:23 Lactated Ringer's 1000 Ml Bag IV 11/20/24 00:15 999 mls/hr .Q1H1M KIRAN Administration Iopamidol 70 ml 11/19/24 23:56 11/19/24 23:58 Iopamidol-370 (76%);100ml Bottle IV 11/19/24 23:57 70 ml ONCE ONE Administration Morphine Sulfate 4 mg 11/20/24 01:25 11/20/24 01:28 Morphine 4mg/Ml Syringe IV 11/20/24 01:26 4 mg ONCE ONE Administration Ondansetron HCl 4 mg 11/19/24 23:10 11/19/24 23:22 Ondansetron 4mg/2ml Vial IV 11/19/24 23:11 4 mg ONCE ONE Administration ORDERS Category Date Time Status CT abdomen pelvis w con Stat Cat Scan 11/19/24 23:10 Completed CBC w/Auto Diff [Complete Blood Count Auto Diff] Stat Lab 11/19/24 23:10 Completed CMP [Comprehensive Metabolic Panel] Stat Lab 11/19/24 23:10 Completed Lactic Acid Stat Lab 11/19/24 00:25 Completed Lipase Stat Lab 11/19/24 23:10 Completed Magnesium Stat Lab 11/19/24 23:10 Completed Urinalysis and Microscopic Stat Lab 11/19/24 23:01 Completed Urinalysis-Acute [Urinalysis and Microscopic] Stat Lab 11/20/24 00:30 Completed Urine Culture Stat Micro 11/19/24 23:01 Received Medical Decision Narrative: 49-year-old female with history of psychiatric disorders, prior hysterectomy presents for 2 days of worsening left lower quadrant abdominal pain, distention, nausea vomiting diarrhea. History was obtained via interactive discussion with patient. On arrival, patient is [afebrile, hemodynamically stable, satting appropriately, alert, oriented x4, GCS 15], moving all extremities spontaneously. Full physical exam performed and significant for abdominal distention with left lower quadrant abdominal tenderness to palpation Differential includes but is not limited to diverticulitis, obstruction, colitis, gastroenteritis mesenteric ischemia ovarian pathology, UTI/kidney stone. Patient was given Dilaudid, Zofran, Tylenol, fluid bolus for symptomatic management and correction of underlying abnormalities. Workup initiated including CBC CMP lipase urinalysis CT abdomen pelvis with IV contrast lactate. On re-evaluation, patient [remains afebrile, HD stable.] Laboratory workup independently interpreted by me and significant for urine that appears grossly contaminated and unreliable, repeat urine ordered. Labs otherwise show mild leukocytosis, no significant electrolyte derangement, normal renal function and lipase. Imaging independently interpreted by me and significant for diverticulosis without diverticulitis, horseshoe kidney that is not significantly changed from prior. No evidence of significant intra-abdominal pathology. See radiology read for full review of final results. On further discussion, patient reports that her diarrhea has had some dark and bright blood, small quantities, intermittent. This, a stool sample was ordered and she was eventually able to give us a very small sample. Patient is somewhat symptomatically improved at this time. She was discharged with stool studies pending, we will call with a positive result. Given patient history, exam and workup, patient's presentation most likely represents enterocolitis. Patient discharged in stable condition with return precautions and prescription for Zofran. Procedures Risk/Benefits of Procedure(s) Were Explained: Yes Critical Care Critical Care Time Critical Care Time: No
[2024-11-19 23:07] LABS: Microscopic, Urine URINE MICROSCOPIC (MICROSCOPIC)
[2024-11-19 23:08] LABS: Bilirubin,Urine Negative (Negative); Blood, Urine Negative (Negative); Color,Urine YELLOW (Yellow); Glucose,Urine (UA) Negative (Negative); Ketones,Urine TRACE (Negative); Leukocyte Esterase,Urine Negative (Negative); Nitrate,Urine Negative (Negative); Protein,Urine Negative (Negative); Specific Gravity, Urine 1.015 (1.005-1.030); Urobilinogen,Urine 0.2 EU/dl (0.2)
--- NOTE | 2024-11-19 23:10 | CT_ITS ---
PROCEDURE INFORMATION: Exam: CT Abdomen And Pelvis With Contrast Exam date and time: 11/19/2024 11:54 PM Age: 49 years old Clinical indication: Bloating; Additional info: Llq pain TECHNIQUE: Imaging protocol: Computed tomography of the abdomen and pelvis with contrast. Total images: 272 Radiation optimization: All CT scans at this facility use at least one of these dose optimization techniques: automated exposure control; mA and/or kV adjustment per patient size (includes targeted exams where dose is matched to clinical indication); or iterative reconstruction. Contrast material: ISOVUE; Contrast volume: 75 ml; Contrast route: IV; COMPARISON: CT ABDOMEN PELVIS WO CON 03/16/2021 6:28 PM FINDINGS: Lungs: Lung bases are clear. Heart: Normal heart size. Liver: Nonenlarged liver with mild steatosis. Normal contour. Subcentimeter right hepatic hypodensity, too small to characterize but statistically cysts or hemangioma. Gallbladder and biliary ducts: Normal. No calcified stones. No ductal dilation. Pancreas: Normal. No ductal dilation. Spleen: Normal. No splenomegaly. Adrenal glands: Normal. No mass. Kidneys and ureters: Horseshoe kidney malformation. Additionally, duplicated bilateral kidneys involved in the horseshoe malformation. Multifocal cortical scarring involving the right upper pole moiety. Multiple intrarenal calculi within the upper pole left renal moiety. Mild chronic hydronephrosis left upper pole limited. No ureteral stones. Stomach and bowel: Mild gastric distension with recently ingested content. Large duodenal diverticulum. No ileus or bowel obstruction. Unremarkable small bowel. Unremarkable terminal ileum. Mild diverticulosis of the descending and sigmoid colon without diverticulitis. Unremarkable rectum. Appendix: Status post appendectomy. Intraperitoneal space: Unremarkable. No free air. No significant fluid collection. Vasculature: Mild atherosclerotic vascular disease. Nonaneurysmal abdominal aorta. Major abdominal vessels enhance appropriately. Pelvic phleboliths. Lymph nodes: Unremarkable. No enlarged lymph nodes. Urinary bladder: Collapsed bladder. Reproductive: Fluid-filled dilated tubular structure in the right adnexa likely reflecting hydrosalpinx. Nonenlarged ovaries. Status post hysterectomy. Bones/joints: Unremarkable. No acute fracture. Soft tissues: Scarring lower abdominal wall. Very tiny fat containing periumbilical hernia. IMPRESSION: 1. 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 2. Chronic left nephrolithiasis. 3. Chronic mild hydronephrosis involving the left upper pole moiety, unchanged from March 16, 2021. 4. Chronic renal cortical scarring involving the right upper pole moiety. 5. Mild hepatic steatosis 6. Right hydrosalpinx is a interval change from the previous exam. 7. Mild colonic diverticulosis without diverticulitis. 8. Additional chronic and incidental findings.
[2024-11-19 23:13] LABS: Appearance,Urine Slightly Cloudy (Clear)
[2024-11-19 23:18] LABS: Basophils # 0.1 K/mm3 (0-0.2); Basophils % 0.4 % (0.1-2.0); Eosinophils # 0.1 Kmm3 (0.0-0.4); Eosinophils % 0.9 % (0.1-12.0); Hematocrit 39.5 % (37.0-47.0); Hemoglobin 13.7 g/dL (12.2-16.2); Immature Granulocytes # 0.06 10^3uL; Immature Granulocytes % 0.5 %; Lymphocytes % 34.2 % (10-50); Mean Corpuscular HGB Conc 34.7 g/dL (31.8-35.4); Mean Corpuscular Hemoglobin 31.9 pg (27.0-31.2); Mean Corpuscular Volume 91.9 fl (81-99); Monocytes # 0.7 K/mm3 (0.1-1.0); Monocytes % 6.4 % (1.7-9.3); Neutrophils # 6.7 K/mm3 (1.8-7.8); Neutrophils % 57.6 % (37.0-80.0); Nucleated Red Blood Cells # 0 10^3/uL; Nucleated Red Blood Cells % 0 %; Platelet Count 282 K/mm3 (142-424); Red Cell Distribution Width 12.3 % (11.5-17.5); White Blood Count 11.6 K/mm3 (4.8-10.8)
[2024-11-19] MEDS: ACETAMINOPHEN 500MG TAB 1000 MG PO (23:21)
[2024-11-19] MEDS: ONDANSETRON 4MG/2ML VIAL 4 MG IV (23:22)
[2024-11-19] MEDS: HYDROMORPHONE 2MG/ML SYRINGE 0.5 MG IV (23:22)
[2024-11-19] MEDS: LACTATED RINGERS 1000ML 1,000 ML 999 ML IV (23:23)
[2024-11-19 23:29] LABS: Alanine Aminotransferase 22 U/L (12-78); Albumin Level 4.4 g/dl (3.5-5.0); Albumin/Globulin Ratio 1.7 (1.1-1.8); Alkaline Phosphatase 83 U/L (38-126); Aspartate Amino Transferase 27 U/L (14-36); Bilirubin,Total 0.4 mg/dl (0.2-1.3); Blood Urea Nitrogen 10 mg/dl (7-17); Calcium 8.8 mg/dl (8.4-10.2); Carbon Dioxide 31 mmol/L (22.0-30.0); Chloride 103 mmol/L (98-107); Creatinine Clearance Estimated 96 mL/min (50-200); Estimated Glomerular Filt Rate 89 ml/min (>60); GFR (African American) 107 ML/MIN (>60); Globulin 2.6 g/dL (1.3-3.2); Glucose 112 mg/dl (74-100); Lipase 39 U/L (23-300); Sodium 139 mmol/L (136-145)
[2024-11-19 23:29] LABS: Bacteria,Urine 4+ /lpf; Squamous Epithelial Cell,Urine TNTC #/hpf (0-5)
[2024-11-19 23:30] VITALS: BP 127/86; PULSE 83; O2SAT 98
[2024-11-19] MEDS: IOPAMIDOL-370 (76%);100ML BOTTLE 70 ML IV (23:58)
[2024-11-20] VITALS (7 sets, daily range): BP systolic 120–145; BP diastolic 61–83; PULSE 64–83; RESP 16; TEMP 36.6; O2SAT 66–100
[2024-11-20 00:39] LABS: Lactic Acid 1.4 mmol/L (0.7-2.1)
[2024-11-20 00:44] LABS: Microscopic, Urine URINE MICROSCOPIC (MICROSCOPIC)
[2024-11-20 00:46] LABS: Appearance,Urine CLEAR (Clear); Bilirubin,Urine Negative (Negative); Blood, Urine Negative (Negative); Color,Urine YELLOW (Yellow); Glucose,Urine (UA) Negative (Negative); Ketones,Urine Negative (Negative); Leukocyte Esterase,Urine Negative (Negative); Nitrate,Urine Negative (Negative); PH,Urine 8.5 (5.0-8.5); Protein,Urine Negative (Negative); Urobilinogen,Urine 0.2 EU/dl (0.2)
[2024-11-20 01:14] LABS: Bacteria,Urine 1+ /lpf
[2024-11-20 01:15] LABS: RBC,Urine Occasional #/hpf (0-3)
[2024-11-20] MEDS: MORPHINE 4MG/ML SYRINGE 4 MG IV (01:28)
[2024-11-20 04:25] LABS: Adenovirus F 40/41, stool Not Detected (NotDetected); Astrovirus Not Detected (NotDetected); Campylobacter Not Detected (NotDetected); Clostridium Difficile A/B, PCR Not Detected (NotDetected); Cryptosporidium Not Detected (NotDetected); Cyclospora Cayetanesis Not Detected (NotDetected); Entamoeba histolytica Not Detected (NotDetected); Enteroaggregative E coli Not Detected (NotDetected); Enteropathogenic E coli Not Detected (NotDetected); Enterotoxigenic E coli Not Detected (NotDetected); Giardia lamblia Not Detected (NotDetected); Norovirus Not Detected (NotDetected); Plesimonas Shigalloides, PCR Not Detected (NotDetected); Rotavirus A Not Detected (NotDetected); Salmonella, PCR Not Detected (NotDetected); Sapovirus Not Detected (NotDetected); Shiga-like toxin E coli Not Detected (NotDetected); Shigella Enterovasive E coli Not Detected (NotDetected); Vibrio Cholerae Not Detected (NotDetected); Vibrio, PCR Not Detected (NotDetected); Yersinia Entercolitica, PCR Not Detected (NotDetected)
== END 2024-11-20 02:51 | disposition home or self-care (01) ==
PROVIDERS: Emergency Provider Emergency Medicine; PCP Nurse Practitioner Family
DX: R10.84 Generalized abdominal pain (principal); R19.7 Diarrhea, unspecified; E87.6 Hypokalemia
CPT/HCPCS: 74177; 80053; 81001; 83605; 83690; 83735; 85025; 87086; 87507; 96361; 96374; 96375; 99285; J1171; J2270; J2405; J7120; Q9967

== ENCOUNTER 2024-12-06 15:22 | Outpatient (POV) | payer OTHER, SELFPAY ==
--- OUTSIDE RECORDS SUMMARY | 2024-11-23 00:10 | XMS_ITS | Encounter Summary ---
Author Organization Healthcare Address [address] [id number] Care Team Providers Care Sheep Rancher Name Role Phone Omar Hess MD Primary Care Provider [phone] Mala Cohen APRN Primary Care Provider [phone] Reason for Referral * Consultation (Routine) - Authorized Specialty Diagnoses / Procedures Referred By Claudia loja Referred To Contact Family Medicine Diagnoses Abdominal pain, generalized Oliver Kim MD [address] [place] [address] Phone: tel: fax: Referral ID Status Reason Start Date Expiration Date V isits Requested Visits Authorized [id number] Authorized 11/26/2024 05/28/2026 1 1 Reason for Visit * Reason Comments Abdominal Pain * Auth/Cert (Routine) Specialty Diagnoses / Procedures Referred By Claudia loja Referred To Contact Diagnoses Abdominal pain, generalized Oliver Kim MD [address] [place] [address] Phone: tel: fax: [facility] [address] [place] [address] Phone: tel: Referral ID Status Reason Start Date Expiration Date Visits Re quested Visits Authorized [id number] 1 1 Encounter Details Date Type Department Care Team (Latest Contact Info) Description 11/23/2024 12:10 AM EDT - 11/26/2024 3:02 PM EDT Hospital Encounter [facility] [address] [place] [id number] Rudy Desai MD [address] [place] [address] Luis Fernando Ly MD [address] [place] [address] John Sheets MD [address] [place] [address] Oliver Kim MD [address] [place] [address] Abdominal pain, generalized (Primary Dx) Discharge Disposition: Home or Self Care Social History Tobacco Use Types Packs/Day Years Used Date Smoking Tobacco: Every Day Alcohol Use Standard Drinks/Week Comments No 0 (1 standard drink = 0.6 oz pur e alcohol) Humiliation, Afraid, Rape, and Kick questionnair e Answer Date Recorded Within the last year, have y ou been afraid of your partner or ex-partner? No 11/25/2024 Within the last year, have y ou been humiliated or emotionally abused in other ways by your partner or ex-partner? No Within the last year, have y ou been kicked, hit, slapped, or otherwise physically hurt by your partner or ex-partner? No 11/25/2024 Within the last year, have y ou been raped or forced to have any kind of sexual activity by your partner or ex-partner? No 11/25/2024 Hunger Vital Sign Answer Date Recorded Within the past 12 months, y ou worried that your food would run out before you got the money to buy more. Never true 11/26/19 25 Within the past 12 months, t he food you bought just didn't last and you didn't have money to get more. Never true 11/25/2024 PRAPARE - Transportation Answer Date Re corded In the past 12 months, has l ack of transportation kept you from medical appointments or from getting medications? Yes 10/29 In the past 12 months, has l ack of transportation kept you from meetings, work, or from getting things needed for daily living? No 11/25/2024 Housing Stability Vital Sign Answer Medardo e Recorded In the last 12 months, was t here a time when you were not able to pay the mortgage or rent on time? No 11/25/2024 In the past 12 months, how m any times have you moved where you were living? 0 11/25/2024 At any time in the past 12 m ont, were you homeless or living in a fpc (including now)? No 11/25/2024 Utilities Answer Date Recorded In the past 12 months has th e [employer], gas, oil, or water [email or web address] threatened to shut off services in your home? No 11/25/2024 Comments Unknown Sex and Gender Information Value Date Recorded Sex Assigned at Not on file Legal Sex Female 8:28 PM EDT Gender Identity Not on file Sexual Orientation Not on file documented as of this encounter Last Filed Vital Signs Vital Sign Reading Time Taken Comments Blood Pressure 103/51 11/26/2024 7:44 AM EDT Pulse 66 11/26/2024 7:44 AM EDT Temperature 36.8 C (98.3 F) 11/26/2024 7:44 AM EDT Respiratory Rate 17 11/25/2024 7:18 AM EDT Oxygen Saturation 95% 11/26/2024 7:44 AM EDT Inhaled Oxygen Concentration - - Weight 63.5 kg (139 lb 15.9 oz) 11/26/2024 8:00 AM EDT Height 160 cm (5' 2.99 ) 11/26/2024 8:00 AM EDT Body Mass Index 24.8 11/26/2024 8:00 AM EDT documented in this encounter Functional Status * Calculated C-SSRS Risk Score (Lifetime/Recent) Answer Date of Assessment Author No Risk Indicated 11/26/2024 9:00 AM EDT Everardo , Karlene P * Question Answer Date of Assessment Author 1. Wish to be (Past 1 Month) No 025 9:00 AM EDT Royalbrenda Karlene P 2. Non-Specific Active Suici nhung Thoughts (Past 1 Month) No 11/26/2024 9:00 AM EDT Everardo Made line P 6. Suicidal Behavior (Lifetime) No 9:00 AM EDT Everardo Karlene P documented as of this encounter Discharge Instructions * Discharge Instructions* Miky Kessler MD - 11/26/2024 12:20 PM EDT - Follow up with your PCP in 1-2 weeks for post admission follow up and routine labs - Discuss with PCP about referral for colonoscopy given symptoms and age - Discuss with PCP about referral for urology given horseshoe kidney and small stone if you developsymptoms or lab abnormalities documented in this encounter Medications at Time of Discharge atorvastatin (Lipitor) 40 MG tablet Take 1 tablet by mouth daily. budesonide-formo terol (Symbicort) 160-4.5 MCG/ACT inhaler Inhale 2 puffs 2 times a day. Rinse mouth with water after use to reduce aftertaste and incidence of candidiasis. Do not swallow. cholecalciferol (Vitamin D-3) 50 MCG (2000 UT) capsule Take 1 capsule by mouth daily. cyanocobalamin 1000 MCG tablet Take 1 tablet by mouth daily. desvenlafaxine (Pristiq) 50 MG 24 hr tablet Take 1 tablet by mouth daily. Do not crush, chew, or split. desvenlafaxine succinate er (Pristiq) 25 MG 24 hr tablet Take 1 tablet by mouth daily. diazePAM (Valium) 5 MG tablet Take 1 tablet by mouth at night as needed for anxiety. divalproex (Depakote) [address] tablet Take 2 tablets by mouth nightly. Do not crush, chew, or split. HYDROcodone-acet aminophen (Eureka) 5-325 MG tablet Take 1 tablet by mouth daily as needed (pain). ipratropium-albu terol (Duo-Neb) 0.5-2.5 mg/3 mL nebulizer solution Take 3 mL by nebulization every 6 hours as needed for wheezing. ondansetron (Zofran) 4 MG tablet Take 1 tablet by mouth every 8 hours as needed for nausea or vomiting. oxyCODONE (Roxicodone) 5 MG immediate release tablet Take 1 tablet by mouth every 6 hours as needed for severe pain. 12 tablet 11/26/2024 polyethylene glycol (Miralax) 17 g packet Take 17 g by mouth daily as needed (For constipation). 1 each 11/26/2024 5 QUEtiapine (SEROquel) 100 MG tablet Take 1 tablet by mouth at night as needed. rizatriptan (Maxalt) 10 MG tablet Take 1 tablet by mouth 1 time as needed for migraine. May repeat in 2 hours if unresolved. Do not exceed 30 mg in 24 hours. senna (Senokot) 8.6 MG tablet Take 1 tablet by mouth at night as needed for constipation. 30 tablet 11/26/2024 5 naloxone (Narcan) 4 mg/0.1 mL nasal spray 1. Give 1 spray in nostril for no/slow breathing or cannot wake after opioid use 2. Call 911 3. Repeat in other nostril if symptoms continue 1 each 11/26/2024 documented as of this encounter Miscellaneous Notes * Discharge Summary - Miky Kessler MD - 11/26/2024 12:23 PM EDT Images from the original note were not included. Hospitalization Admit Date/Time: 11/23/2024 12:10 AM Admitting Attending: Oliver Kim Discharge Date: 11/26/24 Discharge Attending Physician: Oliver Kim MD PCP name and Address: Mala Cohen, [facility] [address] [facility] [address] Chief Concern, Brief History of Present Illness, and Hospital Course Vane Su is a 49 y.o. female with a PMH of chronic neck/back pain, seizure disorder, mood disorder, insomnia, and HLD who presented with ~1 week of abdominal pain, nausea, vomiting, and diarrhea. #Acute abdominal pain with nausea, vomiting, and diarrhea - Developed acutely 1 week ago; symptoms worse with PO intake, has noticed blood in stool x1 - WBC 12.23, afebrile, GI PCR negative, C diff negative, H pylori negative, CRP <3, lipase 18 - CT with 3mm renal stone and hydrosalpinx: do not think these are causing GI symptoms - Differential: viral or bacterial gastroenteritis, lactose intolerance, celiac, IBS, PUD, pelvic inflammatory disease. Low concern for IBD and pancreatitis due to normal CRP and lipase, gonorrhea and chalmydia negative - Stool Ova and parasites, calprotecin, stool osm ordered but not collected given resolution of diarrhea - Symptoms have improved with supportive care, no BM or emesis since admission - Tolerated regular diet END RESULT: - Supportive care with short course of oxycodone 5mg q6h PRN, home ondansetron and acetaminophen - Follow up with PCP, discuss colonoscopy given age and symptoms above #Hydrosalpinx - Noted incidentally on CT, confirmed with TVUS - Performance Improvement Consultant consulted in ED, no signs of infection or torsion, likely 2/2 prior surgical history - Chlamydia and gonorrhea ordered, negative - Unlikely to be cause of abd pain - Follow up with PCP #Horseshoe kidney with calculi - Noted incidentally on CT, 3mm - UA without blood - No changes in UOP, Cr normal, no dysuria - Mild hydronephrosis on imaging, patient has history of ureteral stent, may be chronic 2/2 scarring or obstruction - Tamsulosin started in ED; discontinued at discharge - Follow up with PCP for routine labs - Consider urology referral outpatient if new symptoms or lab abnormalities develop Surgeries and Procedures None Medication List .. atorvastatin 40 MG tablet Commonly known as: Lipitor Take 1 tablet by mouth daily. budesonide-formoterol 160-4.5 MCG/ACT inhaler Commonly known as: Symbicort Inhale 2 puffs 2 times a day. Rinse mouth with water after use to reduce aftertaste and incidence of candidiasis. Do not swallow. cholecalciferol 50 MCG (2000 UT) capsule Commonly known as: Vitamin D-3 Take 1 capsule by mouth daily. cyanocobalamin 1000 MCG tablet Commonly known as: Vitamin B-12 Take 1 tablet by mouth daily. * desvenlafaxine 50 MG 24 hr tablet Commonly known as: Pristiq Take 1 tablet by mouth daily. Do not crush, chew, or split. * desvenlafaxine succinate er 25 MG 24 hr tablet Commonly known as: Pristiq Take 1 tablet by mouth daily. diazePAM 5 MG tablet Commonly known as: Valium Take 1 tablet by mouth at night as needed for anxiety. divalproex [address] tablet Commonly known as: Depakote Take 2 tablets by mouth nightly. Do not crush, chew, or split. HYDROcodone-acetaminophen 5-325 MG tablet Commonly known as: Eureka Take 1 tablet by mouth daily as needed (pain). ipratropium-albuterol 0.5-2.5 mg/3 mL nebulizer solution Commonly known as: Duo-Neb Take 3 mL by nebulization every 6 hours as needed for wheezing. naloxone 4 mg/0.1 mL nasal spray Commonly known as: Narcan 1. Give 1 spray in nostril for no/slow breathing or cannot wake after opioid use 2. Call 911 3. Repeat in other nostril if symptoms continue ondansetron 4 MG tablet Commonly known as: Zofran Take 1 tablet by mouth every 8 hours as needed for nausea or vomiting. oxyCODONE 5 MG immediate release tablet Commonly known as: Roxicodone Take 1 tablet by mouth every 6 hours as needed for severe pain. polyethylene glycol 17 g packet Commonly known as: Miralax Take 17 g by mouth daily as needed (For constipation). QUEtiapine 100 MG tablet Commonly known as: SEROquel Take 1 tablet by mouth at night as needed. rizatriptan 10 MG tablet Commonly known as: Maxalt Take 1 tablet by mouth 1 time as needed for migraine. May repeat in 2 hours if unresolved. Do not exceed 30 mg in 24 hours. senna 8.6 MG tablet Commonly known as: Senokot Take 1 tablet by mouth at night as needed for constipation. * This list has 2 medication(s) that are the same as other medications prescribed for you. Read thedirections carefully, and ask your doctor or other care provider to review them with you. Where to Get Your Medications These medications were sent to [facility] - [place], [place] - [address] [facility] [id number] naloxone 4 mg/0.1 mL nasal spray oxyCODONE 5 MG immediate release tablet polyethylene glycol 17 g packet senna 8.6 MG tablet Discharge Diagnosis Medical Problems Active and Resolved Hospital Problems Hospital * (Principal) Abdominal pain, generalized Post Discharge Instructions Outpatient Follow-Up - Follow up with your PCP in 1-2 weeks for post admission follow up and routine labs - Discuss with PCP about referral for colonoscopy given symptoms and age - Discuss with PCP about referral for urology given horseshoe kidney and small stone if you developsymptoms or lab abnormalities Test Results Pending At Discharge Pending Labs Order Current Status Tissue Transglutaminase (tTG) Ab, IgA (SO) In process Pertinent Physical Exam At Time of Discharge Physical Exam Constitutional: General: She is not in acute distress. Appearance: She is not ill-appearing. HENT: Mouth/Throat: Mouth: Mucous membranes are moist. Pharynx: Oropharynx is clear. Eyes: General: No scleral icterus. Cardiovascular: Rate and Rhythm: Normal rate. Pulmonary: Effort: Pulmonary effort is normal. Abdominal: General: Abdomen is flat. There is no distension. Palpations: Abdomen is soft. Comments: Mild diffuse tenderness; improved Musculoskeletal: Right lower leg: No edema. Left lower leg: No edema. Neurological: General: No focal deficit present. Mental Status: She is alert and oriented to person, place, and time. Discharge Disposition/Condition Disposition: Home Condition: Stable (s/sx potential problems absent or manageable) I spent >30 minutes of patient care and instruction time in preparation for this discharge. Cosigned by Oliver Kim MD at 11/27/2024 8:31 AM EDT Associated attestation - Oliver Kim MD - 11/27/2024 8:31 AM EDT I saw and evaluated the patient with the resident/fellow. I discussed the case with the resident/fellow and agree with the findings and plan as documented. I spent < 30 minutes of patient care and instruction time in preparation for this discharge. * Hospital Course - Miky Kessler MD - 11/26/2024 12:23 PM EDT Vane Su is a 49 y.o. female with a PMH of chronic neck/back pain, seizure disorder, mood disorder, insomnia, and HLD who presented with ~1 week of abdominal pain, nausea, vomiting, and diarrhea. #Acute abdominal pain with nausea, vomiting, and diarrhea - Developed acutely 1 week ago; symptoms worse with PO intake, has noticed blood in stool x1 - WBC 12.23, afebrile, GI PCR negative, C diff negative, H pylori negative, CRP <3, lipase 18 - CT with 3mm renal stone and hydrosalpinx: do not think these are causing GI symptoms - Differential: viral or bacterial gastroenteritis, lactose intolerance, celiac, IBS, PUD, pelvic inflammatory disease. Low concern for IBD and pancreatitis due to normal CRP and lipase, gonorrhea and chalmydia negative - Stool Ova and parasites, calprotecin, stool osm ordered but not collected given resolution of diarrhea - Symptoms have improved with supportive care, no BM or emesis since admission - Tolerated regular diet END RESULT: - Supportive care with short course of oxycodone 5mg q6h PRN, home ondansetron and acetaminophen - Follow up with PCP, discuss colonoscopy given age and symptoms above #Hydrosalpinx - Noted incidentally on CT, confirmed with TVUS - Performance Improvement Consultant consulted in ED, no signs of infection or torsion, likely 2/2 prior surgical history - Chlamydia and gonorrhea ordered, negative - Unlikely to be cause of abd pain - Follow up with PCP #Horseshoe kidney with calculi - Noted incidentally on CT, 3mm - UA without blood - No changes in UOP, Cr normal, no dysuria - Mild hydronephrosis on imaging, patient has history of ureteral stent, may be chronic 2/2 scarring or obstruction - Tamsulosin started in ED; discontinued at discharge - Follow up with PCP for routine labs - Consider urology referral outpatient if new symptoms or lab abnormalities develop * Consults - Swapna Schmidt RD - 11/26/2024 8:22 AM EDT Adult Nutrition Evaluation Note Vane Su 49 y.o. female CSN: [id number] Room/Bed 537/[id number] Nutrition evaluation type: assessment Reason for evaluation: nurse consult Hospital course: 49 yoF presents to ED 11/23 with ~ one week of abdominal pain, nausea, vomiting anddiarrhea. Past medical/ surgical history: Medical History[1] Surgical History[2] Social history: Social History[3] Additional comments: Pt with positive nursing screen for food allergy-pt allergic to beets. Pt withno intakes recorded. Diet changes to regular today. Will monitor for intakes and any GI distress. Vitals and Basic Assessment: BP: 103/51 Temp: 36.8 ??C (98.3 ??F) Oxygen Therapy: None (Room air) [place] Coma Scale Score: 15 Felice Scale Score: 20 Most Recent BM Date: 11/24/24 GI Symptoms: Bloating, Diarrhea, Distention, Nausea, Vomiting Allergies: beets Medications: atorvastatin, 40 mg, Oral, Nightly desvenlafaxine, 50 mg, Oral, Daily divalproex, 500 mg, Oral, Nightly [COMPLETED] Insert peripheral IV, , , Once AND [COMPLETED] Saline lock IV, , , Once AND sodium chloride, 10 mL, Intravenous, q12h AND sodium chloride, 10 mL, Intravenous, PRN tamsulosin, 0.4 mg, Oral, Daily with dinner Meds were reviewed: Yes Labs: Lab Results Component Value Date GLUCOSE 125 (H) 11/26/2024 CALCIUM 8.9 11/26/2024 NA 137 11/26/2024 K 4.3 11/26/2024 CO2 23 11/26/2024 CL 102 11/26/2024 BUN 9 11/26/2024 CREATININE 0.71 11/26/2024 MG 2.0 11/25/2024 HGBA1C 5.1 01/09/2018 Lab Results Component Value Date WBC 7.28 11/26/2024 HGB 12.5 11/26/2024 HCT 35.9 11/26/2024 MCV 93 11/26/2024 PLT 211 11/26/2024 Anthropometrics: Height: 160 cm (5' 2.99 ) Weight: 63.5 kg (139 lb 15.9 oz) BMI (Calculated): 24.8 Weight Evaluation: Normal (BMI 18.5-24.9) [place] Body Weight (kg): 52.2 Percent [place] Body Weight: 121 Estimated Needs: Metabolic Cart Study Results: Current Nutrition Intake: Diet Order: Adult Diet Diet Texture: Regular Percent Meals Eaten (%): none recorded to review Diet Experience and Nutrition History: Diet Education Provided: Will monitor Pertinent home medications: no prior to admission medications entered Taoist needs: Nutrition Focused Physical Exam: Physical exam performed on (date): Assessment of Malnutrition: Nutrition Problem: Altered GI function related to change in GI tract motility as evidenced by ab allen, N/V/D. Status of Nutrition Diagnosis: New Nutrition Interventions and Recommendations: - Encourage adequate po intake - Record daily meal intakes on flowsheet Nutrition Monitoring and Goals: - GI function normalizing - PO intake > 75% of most meals - Monitor po intake and tolerance, weight changes, labs, GI function and skin integrity. Acuity Level: [address], LD [1] Past Medical History: Diagnosis Date Personal history of diseases of the blood and blood-forming organs and certain disorders involving the immune mechanism History of anemia Personal history of other diseases of the musculoskeletal system and connective tissue History of arthritis Personal history of other diseases of the respiratory system History of asthma Personal history of other mental and behavioral disorders History of depression [2] Past Surgical History: Procedure Laterality Date SECTION, LOW TRANSVERSE N/A Section from [facility] HYSTERECTOMY N/A Hysterectomy from [facility] KIDNEY SURGERY N/A Kidney Surgery from [facility] OTHER SURGICAL HISTORY N/A Removal Of Tubal from [facility] [3] Social History Tobacco Use Smoking status: Every Day Substance Use Topics Alcohol use: No * Care Plan - Reagan Whitehead RN - 11/26/2024 4:32 AM EDT Problem: Adult Inpatient Plan of Care Goal: Plan of Care Review Outcome: Ongoing, Progressing Goal: Patient-Specific Goal (Individualized) Outcome: Ongoing, Progressing Goal: Absence of Hospital-Acquired Illness or Injury Outcome: Ongoing, Progressing Goal: Optimal Comfort and Wellbeing Outcome: Ongoing, Progressing Goal: Readiness for Transition of Care Outcome: Ongoing, Progressing * Progress Notes - Yennifer Whitehead - 11/25/2024 3:33 PM EDT Case Management Adult Initial Progress Note Vane Su 49 y.o. female CSN: [id number] Admission: 11/23/2024 12:10 AM Primary Problem: Abdominal pain, generalized PCP: mala Cohen APRN Emergency Contact: No emergency contact information on file. Insurance: Primary Visit Coverage Payer Plan Sponsor Code Group Number Group Name [employer] [place] Primary Visit Coverage Subscriber Subscriber ID Subscriber Name Subscriber SSN Subscriber Address [id number] VANE SU [id number] [place] [address] [place] [address] Patient information: Primary Caregiver: Self Support System: Extended family Daily Living Activities: Functional Status: Independent Living Arrangements: Alone Type of Residence: Other (Comment), Single Level (duplex) [address] [facility] [address] [place] [address] Current DME: Equipment Currently Used at Home: nebulizer Income Information: Income Source: Unknown Income/Expense Information: Income meets expenses Current Resources Utilized: None Housing Circumstances-Z Codes: Housing Circumstances (select all that apply): None Applicable Discharge Transport: I'll get a ride Follow Up Transport: Friends/self Home Health / Home Infusion / Outpatient Dialysis Services: N/A Living Will/Advance Directive/Power of Tenderizer Tender /Guardian: Advance Directive: Not applicable Information Provided on Healthcare Directives: No Pre-existing DNR/DNI Order: No Patient Requests Assistance: No Social Drivers of Health Food Insecurity: No Food Insecurity (11/25/2024) Hunger Vital Sign Worried About Running Out of Food in the Last Year: Never true Ran Out of Food in the Last Year: Never true Alcohol Use: Not on file Housing Stability: Low Risk (11/25/2024) Housing Stability Vital Sign Unable to Pay for Housing in the Last Year: No Number of Times Moved in the Last Year: 0 Homeless in the Last Year: No Tobacco Use: High Risk (07/10/2020) Patient History Smoking Tobacco Use: Every Day Smokeless Tobacco Use: Unknown Passive Exposure: Not on file Transportation Needs: Unmet Transportation Needs (11/25/2024) PRAPARE - Transportation Lack of Transportation (Medical): Yes Lack of Transportation (Non-Medical): No Depression: Not on file Utilities: Not At Risk (11/25/2024) Utilities Threatened with loss of utilities: No Stress: Not on file Intimate Partner Violence: Not At Risk (11/25/2024) Humiliation, Afraid, Rape, and Kick questionnaire Fear of Current or Ex-Partner: No Emotionally Abused: No Physically Abused: No Sexually Abused: No Physical Activity: Not on file Social Connections: Unknown (04/08/2023) Received from [facility] Family and Community Support Help with Day-to-Day Activities: Not on file Lonely or Isolated: Not on file Financial Resource Strain: Not on file Additional Comments: ABILIO spoke with MDs this date re: pt's plan of care. According to MDs, this pt is not medically stable for DC this date but is anticipated to be stable within 72 hrs. SW spoke with the pt at bedside for initial assessment. The pt lives at [address] [place] [address]. Pt lives in single level duplex alone, and is independent with ADLs. The pt's NOK is dtr Wendy Gregory, but cannot recall #. The pt has a SW and nebulizer machine, but unsure if she could have 24 hr care at DC. PCP is Mala Wolfe in [place], and she takes herself or friends take her to appts. The pt states she'll try to get a rideat DC. She has never worked with any PRISON LIBRARIAN or been to rehab, and plans to DC to home when stable. Local pharmacy is at [facility], and ins. Was verified as Aeivon JOHNATHAN. - No further SW concerns identified at this time. SW will continue to remain available and will follow up with DC planning and needs as appropriate. Yennifer Wihtehead * Progress Notes - Miky Kessler MD - 11/25/2024 2:54 PM EDT Images from the original note were not included. Hospital Medicine Progress Note Subjective Subjective NAEO, tolerated her liquid diet without complication. No episodes of diarrhea or additional BM, no vomiting. Ambulated without difficulty, pain improving as well. Objective Objective Last Recorded Vitals Blood pressure 109/70, pulse 69, temperature 36.5 ??C (97.7 ??F), resp. rate 17, height 1.6 m (5' 3 ), weight 63.5 kg (140 lb), SpO2 96%. Physical Exam Constitutional: General: She is not in acute distress. Appearance: She is not ill-appearing. HENT: Mouth/Throat: Mouth: Mucous membranes are moist. Pharynx: Oropharynx is clear. Eyes: General: No scleral icterus. Pulmonary: Effort: Pulmonary effort is normal. Abdominal: General: Abdomen is flat. There is no distension. Palpations: Abdomen is soft. Comments: Slightly tender to deep palpation Musculoskeletal: Right lower leg: No edema. Left lower leg: No edema. Neurological: General: No focal deficit present. Mental Status: She is alert and oriented to person, place, and time. Data Labs personally reviewed: C diff negative, H pylori negative, BMP stable Imaging No new imaging Assessment/Plan Assessment & Plan Principal Problem: Abdominal pain, generalized Vane Su is a 49 y.o. female with a PMH of chronic neck/back pain, seizure disorder, mood disorder, insomnia, and HLD who presented with ~1 week of abdominal pain, nausea, vomiting, and diarrhea. #Acute abdominal pain with nausea, vomiting, and diarrhea - Developed acutely 1 week ago; symptoms worse with PO intake, has noticed blood in stool x1 - WBC 12.23, afebrile, GI PCR negative, C diff negative, H pylori negative, CRP <3, lipase 18 - CT with 3mm renal stone and hydrosalpinx: do not think these are causing GI symptoms - Differential: viral or bacterial gastroenteritis, lactose intolerance, celiac, IBS, PUD, pelvic inflammatory disease. Low concern for IBD and pancreatitis due to normal CRP and lipase - Symptoms have improved with supportive care, no BM since admission PLAN: - Supportive care with PRN ondansetron, acetaminophen, oxycodone 5mg q6h PRN, simethicone - Stool Ova and parasites, calprotecin, stool osm, TTG ordered but not yet collected given resolution of diarrhea - Advance to regular diet #Hydrosalpinx - Noted incidentally on CT, confirmed with TVUS - Performance Improvement Consultant consulted in ED, no signs of infection or torsion, likely 2/2 prior surgical history - Chlamydia and gonorrhea ordered, pending - Unlikely to be cause of abd pain #Horseshoe kidney with calculi - Noted incidentally on CT, 3mm - UA without blood - No changes in UOP, Cr normal, no dysuria - Mild hydronephrosis on imaging, patient has history of ureteral stent, may be chronic 2/2 scarring or obstruction - Continue tamsulosin started in ED - Consider urology referral on discharge Chronic Medical Conditions: #HLD: home statin #Mood: home desvenlafaxine #Insomnia: home diazepam PRN, half dose home quetiapine PRN #Seizure disorder: home divalproex Cosigned by Oliver Kim MD at 11/25/2024 3:11 PM EDT Associated attestation - Oliver Kim MD - 11/25/2024 3:11 PM EDT I saw and evaluated the patient with the resident/fellow. I discussed the case with the resident/fellow and agree with the findings and plan as documented. * Care Plan - Reena Saha RN - 11/25/2024 2:09 PM EDT Problem: Adult Inpatient Plan of Care Goal: Plan of Care Review Outcome: Ongoing, Progressing Flowsheets (Taken 11/25/2024 1409) Progress: improving Plan of Care Reviewed With: patient Goal: Patient-Specific Goal (Individualized) Outcome: Ongoing, Progressing Goal: Absence of Hospital-Acquired Illness or Injury Outcome: Ongoing, Progressing Goal: Optimal Comfort and Wellbeing Outcome: Ongoing, Progressing Goal: Readiness for Transition of Care Outcome: Ongoing, Progressing * Care Plan - Zita Meyers RN - 11/24/2024 10:56 PM EDT Problem: Adult Inpatient Plan of Care Goal: Plan of Care Review Outcome: Ongoing, Progressing Goal: Patient-Specific Goal (Individualized) Outcome: Ongoing, Progressing Goal: Absence of Hospital-Acquired Illness or Injury Outcome: Ongoing, Progressing Goal: Optimal Comfort and Wellbeing Outcome: Ongoing, Progressing Goal: Readiness for Transition of Care Outcome: Ongoing, Progressing * Nursing Note - Juju Munguia RN - 11/24/2024 4:27 PM EDT At 1600 pm, report given to RN Karlene. Pt is going to room 5 [place] [id number]. * H&P - Miky Kessler MD - 11/24/2024 12:59 PM EDTAssociated Order(s): Inpatient consult to Hospitalist Abelardo Images from the original note were not included. Hospital Medicine History & Physical Inpatient consult to Hospitalist Abelardo Consult performed by: Miky Kessler MD Consult ordered by: John Sheets MD Subjective 11/23/2024 Chief Complaint: Chief Complaint Patient presents with Abdominal Pain History Of Present Illness Vane Su is a 49 y.o. female with a PMH of chronic neck/back pain, seizure disorder, mood disorder, insomnia, and HLD who presented with ~1 week of abdominal pain, nausea, vomiting, and diarrhea. Her symptoms began on the 11/16/24 after eating a pizza. Since, she has had progressive abd pain. Her pain is constant, diffuse across her abd and worse with movement and PO intake. It is a sharp cramping pain. When she does try to eat/drink, she has an episode of diarrhea shortly after. She has also had nausea/vomiting. She went to an OSH a few days ago where they sent her home from the ED, but symptoms have progressed. Currently, she is still nauseous but vomiting has improved with medication.Continues to have watery diarrhea with PO intake. Noticed an episode of dark/bloody stool at home x1 but has not noticed one here. Has never had this pain before and denies any history of pain/diarrhea with gluten or milk products. Thinks she has had fevers/chills but no recorded temp. No SOA, chest pain, rashes, dysuria, hematuria. Has chronic back pain but the L flank might be more painful right now. No changes to urine output, reports she has had a ureteral stent in the past. Upon arrival to Ed, afebrile and HDS. Labs significant for WBC 12.23, Hgb 13, Cr 0.72, lipase 18, lactate 1.6, CRP <3. Imaging showed horseshoe kidney with 3mm calculi in left renal moiety with mild hydronephrosis, as well as a tubular structure in R adnexa confirmed to be hydrosalpinx on TVUS. She received 2L IVF. Past Medical History Medical History[1] Surgical History Surgical History[2] Family History Family History[3] Social History Social History[4] Home Medications No current outpatient medications Objective Blood pressure 130/62, pulse 79, temperature 36.7 ??C (98 ??F), temperature source Oral, resp. rate18, height 1.6 m (5' 3 ), weight 63.5 kg (140 lb), SpO2 99%. Physical Exam Constitutional: General: She is not in acute distress. Appearance: She is not ill-appearing. HENT: Mouth/Throat: Mouth: Mucous membranes are moist. Pharynx: Oropharynx is clear. Eyes: General: No scleral icterus. Cardiovascular: Rate and Rhythm: Normal rate. Heart sounds: Normal heart sounds. Pulmonary: Effort: Pulmonary effort is normal. Breath sounds: Normal breath sounds. Abdominal: General: Abdomen is flat. There is no distension. Palpations: Abdomen is soft. Comments: Diffusely tender to palpation Musculoskeletal: Right lower leg: No edema. Left lower leg: No edema. Neurological: General: No focal deficit present. Mental Status: She is alert and oriented to person, place, and time. Data Labs personally reviewed CBC WBC ?? Hb ?? Plt ?? Hct ?? ANC ?? INR ??, PTT ??, Anti-Xa ?? BMP Na ?? Cl ?? BUN ?? Glu ?? K ?? Co2 ?? Cr ?? Ca ?? iCa ?? Mg ??, Phos ?? Lactate ?? LFT AST ?? AlkPhos ?? T Prot ?? ALK ?? Bili ?? Alb ?? D.Bili ?? Imaging CT personally reviewed, showing horseshoe kidney with 3mm calculi in left renal moiety with mild hydronephrosis, as well as a tubular structure in R adnexa confirmed to be hydrosalpinx on TVUS. Assessment/Plan Assessment/ Plan Principal Problem: Abdominal pain, generalized Vane Su is a 49 y.o. female with a PMH of chronic neck/back pain, seizure disorder, mood disorder, insomnia, and HLD who presented with ~1 week of abdominal pain, nausea, vomiting, and diarrhea. #Acute abdominal pain with nausea, vomiting, and diarrhea - Developed acutely 1 week ago; symptoms worse with PO intake, has noticed blood in stool x1 - WBC 12.23, afebrile, GI PCR negative, CRP <3, lipase 18 - CT with 3mm renal stone and hydrosalpinx: do not think these are causing GI symptoms - Differential: viral or bacterial gastroenteritis, lactose intolerance, celiac, IBS, PUD, pelvic inflammatory disease. Low concern for IBD and pancreatitis due to normal CRP and lipase PLAN: - Supportive care with PRN ondansetron, acetaminophen, oxycodone 5mg q6h PRN - Stool C diff, Ova and parasites, calprotecin, stool osm, H pylori stool antigen, Chalmydia, Gonorrhea, TTG ordered - Consider starting PPI pending H pylori antigen collection - Ordering full liquid diet, advance as tolerated #Hydrosalpinx - Noted incidentally on CT, confirmed with TVUS - Performance Improvement Consultant consulted in ED, no signs of infection or torsion, likely 2/2 prior surgical history - Chlamydia and gonorrhea ordered as above - Unlikely to be cause of abd pain #Horseshoe kidney with calculi - Noted incidentally on CT, 3mm - UA without blood - No changes in UOP, Cr normal, no dysuria - Mild hydronephrosis on imaging, patient has history of ureteral stent, may be chronic 2/2 scarring or obstruction - Continue tamsulosin started in ED - Consider urology referral on discharge Chronic Medical Conditions: #HLD: home statin #Mood: home desvenlafaxine #Insomnia: home diazepam PRN, half dose home quetiapine PRN #Seizure disorder: home divalproex Electronically Signed by: Miky Kessler MD - 11/24/2024 - 12:59 PM [1] Past Medical History: Diagnosis Date Personal history of diseases of the blood and blood-forming organs and certain disorders involving the immune mechanism History of anemia Personal history of other diseases of the musculoskeletal system and connective tissue History of arthritis Personal history of other diseases of the respiratory system History of asthma Personal history of other mental and behavioral disorders History of depression [2] Past Surgical History: Procedure Laterality Date SECTION, LOW TRANSVERSE N/A Section from [facility] HYSTERECTOMY N/A Hysterectomy from [facility] KIDNEY SURGERY N/A Kidney Surgery from [facility] OTHER SURGICAL HISTORY N/A Removal Of Tubal from [facility] [3] Family History Problem Relation Name Age of Onset Cardiac disorder Father Other cancer Mother [4] Social History Tobacco Use Smoking status: Every Day Substance Use Topics Alcohol use: No Cosigned by Oliver Kim MD at 11/24/2024 8:36 PM EDT Associated attestation - Oliver Kim MD - 11/24/2024 8:36 PM EDT I saw and evaluated the patient. I discussed the case with the resident/fellow and agree with the findings and plan as documented. * Progress Notes - Bharath Tai MD - 11/24/2024 11:21 AM EDT Images from the original note were not included. ED TRANSFER OF CARE NOTE I received sign-out and accepted care of this patient from the previous ED providers caring for this patient. I reviewed the patient's history, exam, work- up, and treatment plan up to this point. Please see the primary ED Provider Note for complete elements of the history, physical exam, and ED course. PERTINENT HISTORY: In brief, Vane Su is a 49 y.o. female with pmh of seizure disorder, chronic neck and back pain, anxiety, depression, and insomnia who presented with severe abdominal pain, nausea, vomiting and diarrhea x7 days. Negative GI PCR (C diff PCR and O+P pending). Diarrhea has been lower volume, associated with post-meals, and intermittently with small blood; she has had subjective fevers as well. Likely more osmotic or post-infectious diarrhea from viral gastroenteritis. Her lower abdominal pain is not well controlled on her home [place] and she has limited PO intake. Vomiting is improved. CT without noted colitis but found small nonobstructing renal stone (in horseshoe kidney with report mild hydronephrosis) so could have component of renal colic as well as an incidental right hydrosalpinx evaluated by OBGYN who feel is likely unrelated. admission requested for persistent abdominal pain and poor PO intake. PENDING: I accepted care of this patient from the previous provider pending symptomatic improvement. Ultimately, on reassessment: not adequately improved ED Medication Administration from 11/22/2024 2316 to 11/24/2024 1120 Date/Time Order Dose Route Action 11/23/2024 0112 EDT HYDROmorphone (Dilaudid) injection 0.5 mg 0.5 mg Intravenous Given 11/23/2024 0112 EDT lactated Ringer's infusion 1,000 mL 1,000 mL Intravenous New Bag 11/23/2024 0112 EDT ondansetron (Zofran) injection 4 mg 4 mg Intravenous Given 11/23/2024 0243 EDT HYDROmorphone (Dilaudid) injection 0.5 mg 0.5 mg Intravenous Given 11/23/2024 0342 EDT lactated Ringer's infusion 1,000 mL 0 mL Intravenous Stopped 11/23/2024 0436 EDT iohexol (OMNIPaque) 300 MG/ML injection 100 mL 100 mL Intravenous Given 11/23/2024 0455 EDT HYDROmorphone (Dilaudid) injection 0.5 mg 0.5 mg Intravenous Given 11/23/2024 0621 EDT HYDROmorphone (Dilaudid) injection 1 mg 1 mg Intravenous Given 11/23/2024 0958 EDT HYDROmorphone (Dilaudid) injection 0.5 mg 0.5 mg Intravenous Given 11/23/2024 1257 EDT HYDROmorphone (Dilaudid) injection 1 mg 1 mg Intravenous Given 11/23/2024 1257 EDT lactated Ringer's bolus 1,000 mL 1,000 mL Intravenous New Bag 11/23/2024 1443 EDT lactated Ringer's bolus 1,000 mL 0 mL Intravenous Stopped 11/23/2024 1449 EDT sodium chloride 0.9 % flush 10 mL 10 mL Intravenous Given 11/23/2024 1533 EDT desvenlafaxine (Pristiq) 24 hr tablet 50 mg 50 mg Oral Given 11/23/2024 1753 EDT HYDROcodone-acetaminophen ([place]) 5-325 MG per tablet 5 mg of hydrocodone 5 mg of hydrocodone Oral Given 11/23/2024 2037 EDT atorvastatin (Lipitor) tablet 40 mg 40 mg Oral Given 11/23/20242036 EDT diazePAM (Valium) tablet 5 mg 5 mg Oral Given 11/23/20242036 EDT divalproex (Depakote ER) 24 hr tablet 500 mg 500 mg Oral Given 11/23/20242036 EDT lactated Ringer's infusion 1,000 mL 1,000 mL Intravenous New Bag 11/23/20242036 EDT ondansetron (Zofran) injection 4 mg 4 mg Intravenous Given 11/23/20242036 EDT tamsulosin (Flomax) 24 hr capsule 0.4 mg 0.4 mg Oral Given 11/23/20242037 EDT ketorolac (Toradol) injection 15 mg 15 mg Intravenous Given 11/23/20242241 EDT HYDROcodone-acetaminophen ([place]) 5-325 MG per tablet 5 mg of hydrocodone 5 mg of hydrocodone Oral Given 11/23/2024 2249 EDT lactated Ringer's infusion 1,000 mL 0 mL Intravenous Stopped 11/24/2024 0340 EDT sodium chloride 0.9 % flush 10 mL 10 mL Intravenous Given 11/24/2024 0408 EDT HYDROcodone-acetaminophen ([place]) 5-325 MG per tablet 5 mg of hydrocodone 5 mg of hydrocodone Oral Given 11/24/2024 0408 EDT ondansetron (Zofran) injection 4 mg 4 mg Intravenous Given 11/24/2024 0843 EDT desvenlafaxine (Pristiq) 24 hr tablet 50 mg 50 mg Oral Given 11/24/2024 0848 EDT HYDROcodone-acetaminophen ([place]) 5-325 MG per tablet 5 mg of hydrocodone 5 mg of hydrocodone Oral Given 11/24/2024 1120 EDT lactated Ringer's infusion 125 mL/hr Intravenous New Bag ED COURSE: Clinical Impressions as of 11/24/24 1120 Abdominal pain, generalized Ultimately, this patient Was admitted (Admission) The encounter diagnosis was Abdominal pain, generalized.. Patient believed to require admission for the listed diagnoses. The Internal Medicine service was consulted for admission and wasagreeable to admit to Acute Floor (Med/Surg). ED Prescriptions None Disposition Observation Provider Care Team: [facility] ADULT [56] Are they the primary team?: Yes [1] - Bharath Tai MD Cosigned by John Sheets MD at 11/24/2024 2:30 PM EDT Associated attestation - John Sheets MD - 11/24/2024 2:30 PM EDT I saw and evaluated the patient with the resident/fellow. I discussed the case with the resident/fellow and agree with the findings and plan as documented. * Clinician Note - Jojo Bang MD - 11/23/2024 7:54 PM EDTAssociated Order(s): Consult to Gynecology Consult to Gynecology Consult performed by: Jojo Bang MD Consult ordered by: Luis Fernando Ly MD Consult completed by [facility] service. Please see consult note by Dulce Jalloh MD on 11/23/24 at 11:49. * H&P - Autumn Scott DO - 11/23/2024 2:36 PM EDT Images from the original note were not included. Chief Concern & History Of Present Illness Vane Su is a 49 y.o. female with pmhx of seizure disorder, chronic neck and back pain, anxiety, depression, and insomnia presenting with abdominal pain, nausea, vomiting and diarrhea x7days. Pt reports eating pizza 11/16 and shortly after developed acute onset LLQ abdominal pain on 11/16 that radiated across her lower abdomen to the RLQ. Pain is sharp and achy, comes and goes, improved with warm compress and sleep. Eating makes it worse. Abdominal pain was also associated with nausea, vomiting, and diarrhea. She was evaluated at an osh 11/20 where she was told she likely had diverticulitis and was discharged with zofran and told symptoms would improve with time. Patient reports her pain has persisted. Nausea and vomiting have improved. Diarrhea has also persisted but improved from initial. She is tolerating some PO intake. She is stooling 1-2x daily described as watery. States initially there was some blood on her stool but not every time. She admits to subjective fevers and chills. Denies headache, chest pain, shortness of breath, and dysuria. Denies sick contacts. In the ED she is afebrile and hemodynamically stable. Labs significant for WBC 12.23, ANC 7.44, CMPgrossly unremarkable, lipase 18, lactate 1.6, UA negative. CT abdomen and pelvis remarkable for known horseshoe kidney, with calculi of the left renal moiety measuring up to 3 mm, with associated mild hydronephrosis. Also noted R hydrosalpinx that was confirmed on TVUS- no concern of ovarian torsion on TVUS. Pt denies tobacco, alcohol, and drug use. Patient had persistent abdominal pain and continued to require IV pain medication therefore the ED observation team was consulted for admission for pain control. Past Medical History She has a past medical history of Personal history of diseases of the blood and blood-forming organs and certain disorders involving the immune mechanism, Personal history of other diseases of the musculoskeletal system and connective tissue, Personal history of other diseases of the respiratory system, and Personal history of other mental and behavioral disorders. Surgical History She has a past surgical history that includes Kidney surgery (N/A); Hysterectomy (N/A); section, low transverse (N/A); and Other surgical history (N/A). Family History Family History[1] Social History She reports that she has been smoking. She does not have any smokeless tobacco history on file. Shereports that she does not drink alcohol. No history on file for drug use. Occupational History Occupational history[2] Employer: No address on file. Travel History Relevant International Travel History: Travel Screening Question Response Have you been in contact with someone who was sick? No / Unsure Do you have any of the following new or worsening symptoms? Abdominal pain;Diarrhea Have you traveled internationally or domestically in the last month? No Travel History Travel since 10/24/24 No documented travel since 10/24/24 Immunizations reviewed VACCINE/DOSE Flu Tetanus Pneumovax Shingles Allergies Codeine, Ibuprofen, Fluoxetine, Fluvoxamine, Latex, Loratadine, Magnesium sulfate, Naproxen, Nitrofurantoin, Oxycodone, Sulfa drugs, Sumatriptan, and Trazodone Medications Current Medications[3] Review of Systems Constitutional: Negative for fatigue and fever. Respiratory: Negative for shortness of breath. Cardiovascular: Negative for chest pain, palpitations and leg swelling. Gastrointestinal: Positive for abdominal pain, diarrhea, nausea and vomiting. Physical Exam Constitutional: General: She is not in acute distress. Cardiovascular: Rate and Rhythm: Normal rate and regular rhythm. Heart sounds: No murmur heard. Pulmonary: Effort: Pulmonary effort is normal. No respiratory distress. Breath sounds: Normal breath sounds. Abdominal: General: There is no distension. Palpations: Abdomen is soft. Tenderness: There is abdominal tenderness. There is no rebound. Hernia: No hernia is present. Musculoskeletal: Right lower leg: No edema. Left lower leg: No edema. Neurological: Mental Status: She is alert and oriented to person, place, and time. Psychiatric: Mood and Affect: Mood normal. Last Recorded Vitals Blood pressure (!) 157/72, pulse 101, temperature 36.8 ??C (98.2 ??F), temperature source Oral, resp. rate 20, height 1.6 m (5' 3 ), weight 63.5 kg (140 lb), SpO2 95%. Relevant Results Labs in last 18 hours CBC WBC 12.23 (H) Hb 13.0 Plt 242 Hct 37.0 ANC 7.44 (H) INR 0.9, PTT ??, Anti-Xa ?? BMP Na 138 Cl 102 BUN 11 Glu 89 K 4.1 Co2 22 Cr 0.72 Ca 9.1 iCa 4.5 (L) Mg 2.0, Phos ?? Lactate ?? LFT AST 14 AlkPhos 73 T Prot 6.7 ALK 14 Bili <0.2 (L) Alb ?? D.Bili ?? Assessment/Plan Active Problems: There are no active Hospital Problems. Abdominal pain, nausea, vomiting, diarrhea Hydrosalpinx - ddx: acute viral or bacterial gastroenteritis, hydrosalpinx, pancreatitis, diverticulitis, pyelonephritis, nephrolithiasis, IBD, other infectious etiology, malignancy - labs remarkable for WBC 12. CMP, lactate, lipase wnl. - CT a/p remarkable for known horseshoe kidney with 3mm calculi; low suspicion that this is causingpatients symptoms; UA normal, denies dysuria, flank pain. - TVUS with R hydrosalpinx, no ovarian torsion; new product trainer consulted - S/p 2L LR, pt remains hemodynamically stable and afebrile. PLAN - GI PCR - follow up Performance Improvement Consultant recs, appreciate them - continue symptomatic management: home hydrocodone PRN, zofran PRN, dilaudid PRN for breakthrough pain - pt requesting to eat, start full liquid diet, advance as tolerated Chronic medical problems: Insomnia: continue diazepam 5mg nightly Chronic pain: continue hydrocodone 5mg PRN Mood disorder: continue desvenlafaxine Seizure disorder: continue Depakote Medically Ready for Discharge:Anticipated Tomorrow [1] Family History Problem Relation Name Age of Onset Cardiac disorder Father Other cancer Mother [2] [3] Current Facility-Administered Medications Medication Dose Route Frequency Provider Last Rate Last Admin atorvastatin (Lipitor) tablet 40 mg 40 mg Oral Nightly Autumn Scott, DO desvenlafaxine (Pristiq) 24 hr tablet 50 mg 50 mg Oral Daily Autumn Scott, DO diazePAM (Valium) tablet 5 mg 5 mg Oral Nightly Autumn Scott, DO divalproex (Depakote ER) 24 hr tablet 500 mg 500 mg Oral Nightly Autumn Scott, DO HYDROcodone-acetaminophen ([place]) 5-325 MG per tablet 5 mg of hydrocodone 5 mg of hydrocodone Oral q4h PRN Autumn Scott, DO ondansetron (Zofran) injection 4 mg 4 mg Intravenous q6h PRN Autumn Scott, DO sodium chloride 0.9 % flush 10 mL 10 mL Intravenous q12h Autumn Scott, DO 10 mL at 11/23/24 1449 And sodium chloride 0.9 % flush 10 mL 10 mL Intravenous PRN Autumn Scott, No current outpatient medications on file. Cosigned by Rudy Desai MD at 11/29/2024 12:09 AM EDT Associated attestation - Rudy Desai MD - 11/29/2024 12:09 AM EDT I saw and evaluated the patient with the resident/fellow. I discussed the case with the resident/fellow and agree with the findings and plan as documented. I personally spent a total of 15 minutes on this encounter. This time includes face to face with patient, counseling, and discussion and/or coordination of care. * Consults - Dulce Jalloh MD - 11/23/2024 11:49 AM EDT Gynecology Consult Note Patient Name: Vane Su : 1975 Date of Admission: 11/23/24 Requesting Service: Luis Fernando Ly MD History of Present Illness: Vane Su is a 49 y.o. who presents with acute on chronic abdominal pain since 11/16/24. Patient reports that she ate a [employer] on 11/16 and subsequently developed significant and severe nausea/vomiting/diarrhea. Patient was having diffuse abdominal pain that prompted her to present to OSH where they told her she had diverticulosis. She was discharged with zofran which helped with the vomiting. Patient reports persistent abdominal pain and diarrhea despite medication. She states her abdominal pain is constant with worsening exacerbation whenever she eats. Patient reports a vague abdominal pain that does not radiate to any one quadrant. She also reports significant diarrhea after every time she eats. She has cut out solid foods and reports that she tolerates soups better. Patient states she had dark BM with bright red blood in toilet bowl prior to presenting to ED last night. Of note, patient has a history of chronic pain for which she is a patient at a pain clinic. She reports a history of chronic neck pain (s/p spinal fusion) and sciatic pain. She takes hydrocodone 5mg BID. She reports that she has only been able to sleep if she takes Seroquel. She denies abnormal vaginal bleeding or discharge. OBGYN History: x2, CS x1 S/p [place] BTL Underwent partial hysterectomy in 20s due to AUB. Unsure if she still has a cervix. History of trichomonas many years ago, s/p treatment History of diagnostic laparoscopy with removal of right ovarian ectopic LMP: n/a due to hysterectomy Past Medical History: Medical History[1] Past Surgical History: Surgical History[2] Family History: Family History[3] Social History: Social History[4] Medications: Current Medications[5] Allergies: Allergies[6] Subjective Review of Systems: 14 point ROS reviewed with patient, all negative except otherwise mentioned in HPI. Objective Physical Exam: Vital Signs: Visit Vitals BP (!) 157/72 (Patient Position: Lying) Pulse 101 Temp 36.8 ??C (98.2 ??F) (Oral) Resp 20 BMI: Body mass index is 24.8 kg/m??. Weight: Wt Readings from Last 3 Encounters: 11/22/24 63.5 kg (140 lb) 01/09/18 57.3 kg (126 lb 5.2 oz) 12/26/17 58.4 kg (128 lb 12 oz) Physical Exam Constitutional: Appearance: Normal appearance. Genitourinary: Vulva normal. HENT: Head: Normocephalic and atraumatic. Mouth/Throat: Mouth: Mucous membranes are moist. Eyes: Extraocular Movements: Extraocular movements intact. Pupils: Pupils are equal, round, and reactive to light. Cardiovascular: Rate and Rhythm: Normal rate and regular rhythm. Pulses: Normal pulses. Heart sounds: Normal heart sounds. Pulmonary: Effort: Pulmonary effort is normal. Abdominal: General: Abdomen is flat. There is distension. Palpations: Abdomen is soft. Tenderness: There is abdominal tenderness. There is no right CVA tenderness or left CVA tenderness. Musculoskeletal: General: Normal range of motion. Cervical back: Normal range of motion. Neurological: General: No focal deficit present. Mental Status: She is alert and oriented to person, place, and time. Skin: General: Skin is warm and dry. Psychiatric: Mood and Affect: Mood normal. Behavior: Behavior normal. Results: Lab Results Component Value Date WBC 12.23 (H) 11/23/2024 HGB 13.0 11/23/2024 HCT 37.0 11/23/2024 MCV 91 11/23/2024 PLT 242 11/23/2024 NEUTROABS 7.44 (H) 11/23/2024 GLUCOSE 89 11/23/2024 BUN 11 11/23/2024 CREATININE 0.72 11/23/2024 NA 138 11/23/2024 K 4.1 11/23/2024 CL 102 11/23/2024 CO2 22 11/23/2024 MG 2.0 11/23/2024 CALCIUM 9.1 11/23/2024 Imaging: US Pelvis Transvaginal Result Date: 11/23/2024 Right sided hydrosalpinx. No evidence of ovarian torsion. CRITICAL RESULT: No. COMMUNICATION: Per this written report. By electronically signing this report, I, the attending physician, attest that Ihave personally reviewed the images/data for the above examination(s) and agree with the final edited report. Drafted by Felipe Archibald MD on 11/23/2024 7:44 AM Final report signed by Miles Manjarrez MD on 11/23/2024 8:[address] Abdomen Pelvis w IV Contrast Result Date: 11/23/2024 Horseshoe kidney, with calculi of the left renal moiety measuring up to 3 mm, with associated mild hydronephrosis. Tubular cystic structure in the right adnexa measuring up to 63 mm. This is nonspecific but could represent hydrosalpinx, ovarian cystic lesion or duplication or peritoneal inclusion cyst. CRITICAL RESULT: No. COMMUNICATION: Per this written report. Preliminary report signed by Travis Davis MD on 11/23/2024 5:07 AM By electronically signing this report, I, the attending physician, attest that I have personally reviewed the images/data for the above examination(s) and agree withthe final edited report. Drafted by Travis Davis MD on 11/23/2024 4:49 AM Final report signed by Santo Amezquita MD on 11/23/2024 5:18 AM Assessment / Plan Assessment/Plan: Vane Su is a 49 y.o. with abdominal pain found to have right sided hydrosalpinx # Hydrosalpinx - CT AP 11/23: prior hysterectomy, fluid attenuation tubular cystic structure in the right adnexa measuring 63mm - TVUS 11/23: cystic tubular structure in the right adnexa with appearance of hydrosalpinx. Normal size right ovary with normal flow to right ovary - Personal review of images with most consistent with thin walled hydrosalpinx without evidence of infection or torsion - Most likely reflective of abdominal adhesive disease secondary due to prior surgical history (CS,diagnostic lap, and BTL) - Hydrosalpinx unlikely to be origin of diffuse abdominal pain, would recommend further workup including thorough GI investigation # Abdominal Pain - Patient describes continued abdominal pain since inciting incident of eating at [employer] on11/16 - Reports postprandial diarrhea, increased abdominal pain, and hematochezia prompting ED visit - CT AP as above - Horseshoe kidney with left renal caliculi visualized, non-obstructing and moderate left hydronephrosis - Physical exam with non-surgical abdomen - Due to nature of abdominal pain, unlikely related to SPEARER finding of hydrosalpinx on scan - Agree with admission for pain control and further etiologies for abdominal pain Dispo: Thank you for including us in the care of this patient. Thank you for including us in the care of this patient. Please page [phone] with questions or concerns. Dulce Jalloh MD Obstetrics and Gynecology, PGY-3 [1] Past Medical History: Diagnosis Date Personal history of diseases of the blood and blood-forming organs and certain disorders involving the immune mechanism History of anemia Personal history of other diseases of the musculoskeletal system and connective tissue History of arthritis Personal history of other diseases of the respiratory system History of asthma Personal history of other mental and behavioral disorders History of depression [2] Past Surgical History: Procedure Laterality Date SECTION, LOW TRANSVERSE N/A Section from [facility] HYSTERECTOMY N/A Hysterectomy from [facility] KIDNEY SURGERY N/A Kidney Surgery from [facility] OTHER SURGICAL HISTORY N/A Removal Of Tubal from [facility] [3] Family History Problem Relation Name Age of Onset Cardiac disorder Father Other cancer Mother [4] Social History Socioeconomic History Marital status: Tobacco Use Smoking status: Every Day Substance and Sexual Activity Alcohol use: No Social Drivers of Health Received from [facility] Family and Community Support Received from [facility] Abuse Screen Received from [facility] Housing Stability [5] No current facility-administered medications for this encounter. No current outpatient medications on file. [6] Allergies Allergen Reactions Codeine Itching Ibuprofen Nausea Fluoxetine Unknown - Patient states they do not know rxn details Fluvoxamine Unknown - Patient states they do not know rxn details Latex Unknown - Patient states they do not know rxn details Loratadine Unknown - Patient states they do not know rxn details Magnesium Sulfate Unknown - Patient states they do not know rxn details Naproxen Other - please document in the comment field makes me feel really weird Nitrofurantoin Unknown - Patient states they do not know rxn details Oxycodone Unknown - Patient states they do not know rxn details Sulfa Drugs Unknown - Patient states they do not know rxn details Sumatriptan Unknown - Patient states they do not know rxn details Trazodone Other - please document in the comment field dizziness Cosigned by Merrill Saavedra MD at 11/23/2024 11:25 PM EDT Associated attestation - Merrill Saavedra MD - 11/23/2024 11:25 PM EDT I have reviewed case, care and imaging and I agree with plan of care. * ED Provider Notes - Tony Sawant MD - 11/22/2024 11:16 PM EDT - HPI Chief Complaint Patient presents with Abdominal Pain Pt arrive to ED w concerns of worsening abd pain along w diarrhea. Pt reports she went to OSH and was sent home w ajya on 11/20. Pt reports she has stopped vomiting, but her pain is severe along w constant diarrhea. States diarrhea is bloody. Denies current vomiting. Patient History Medical History[1] Surgical History[2] Family History[3] Social History[4] Allergies: Allergies[5] Physical Exam ED Triage Vitals [11/22/24 2320] Temp Heart Rate Resp BP 36.5 ??C (97.7 ??F) 95 24 132/82 SpO2 Temp Source Heart Rate Source Patient Position 96 % Oral -- Sitting BP Location FiO2 (%) Right arm -- Physical Exam Constitutional: General: She is not in acute distress. HENT: Head: Normocephalic. Comments: No facial swelling Mouth/Throat: Mouth: Mucous membranes are moist. Pharynx: Oropharynx is clear. Cardiovascular: Rate and Rhythm: Normal rate. Pulmonary: Effort: Pulmonary effort is normal. No respiratory distress. Breath sounds: Normal air entry. Comments: Speaking full sentences. Symmetric chest rise Abdominal: General: There is distension. Tenderness: There is generalized abdominal tenderness. Musculoskeletal: General: No deformity. Normal range of motion. Cervical back: Normal range of motion. Comments: Atraumatic, moves all extremities spontaneously Neurological: General: No focal deficit present. Mental Status: She is alert. Mental status is at baseline. Comments: Awake Psychiatric: Behavior: Behavior normal. No data recorded ED Course & MDM - Assessment: 49 y.o. female presents to ED with complaint of abdominal pain. Differential Diagnosis: gastroenteritis, campylobacter, salmonella, shigella In order to fully explore the differential diagnosis the following treatments and tests were ordered: ED Medication Administration from 11/22/2024 2316 to 11/23/2024 0504 Date/Time Order Dose Route Action 11/23/2024 0112 EDT HYDROmorphone (Dilaudid) injection 0.5 mg 0.5 mg Intravenous Given 11/23/2024 0112 EDT lactated Ringer's infusion 1,000 mL 1,000 mL Intravenous New Bag 11/23/2024 0112 EDT ondansetron (Zofran) injection 4 mg 4 mg Intravenous Given 11/23/2024 0243 EDT HYDROmorphone (Dilaudid) injection 0.5 mg 0.5 mg Intravenous Given 11/23/2024 0342 EDT lactated Ringer's infusion 1,000 mL 0 mL Intravenous Stopped 11/23/2024 0436 EDT iohexol (OMNIPaque) 300 MG/ML injection 100 mL 100 mL Intravenous Given 11/23/2024 0455 EDT HYDROmorphone (Dilaudid) injection 0.5 mg 0.5 mg Intravenous Given All Other Orders Ordered Status Ordering Provider 11/23/24 0115 Initiate Contact D Isolation Continuous Comments: Added via Instant Order OPA Acknowledged BPA, INSTANT ORDERS 11/23/[address] Abdomen Pelvis w IV Contrast Once In process TONY SAWANT 11/23/24 0037 Comprehensive GI Panel by PCR STAT Acknowledged TONY SAWANT 11/23/24 0020 CBC w/diff STAT Final result JESETONY Loja N 11/23/24 0020 PT-INR STAT Final result TONY SAWANT N 11/23/24 002 CMP STAT Final result TONY SAWANT N 11/23/24 0020 Magnesium STAT Final result TONY SAWANT N 11/23/24 002 Lipase STAT Final result JESETONY Loja N 11/23/24 002 Blood gas panel, venous STAT Final result TONY SAWANT N 11/23/24 002 hCG qualitative STAT Final result JESETONY Loja N 11/23/24 002 Urinalysis with reflex microscopic (Culture NOT Included) STAT Final result TONY SAWANT N 11/23/24 002 Hepatitis C Antibody - ED Once Final result TONY SAWANT [facility] 11/23/24 002 ED Protocol - HIV 1/2 Antibody/Antigen Screen Once Final result TONY SAWANT [facility] 11/23/24 002 ED HIV 1/2 Antibody/Antigen Screen w/Reflex to HIV 1/2 Differentiation PROCEDURE ONCE Final result JESETONY Loja [facility] Clinical Impressions as of 11/27/242134 Abdominal pain, generalized Social Determinates of Health Risks (including Economic Stability, Education and level of understanding, Healthcare access and quality and concerning social factors): Lives far away Cbc with mild leukocytosis Cmp without renal or hepatic dysfxn Ct ap with large ovarian cyst Patient continued to have pain, tvus ordered to eavluate for torsion Signed out to oncoming provider pending pain control and tvus ED Prescriptions None - [1] Past Medical History: Diagnosis Date Personal history of diseases of the blood and blood-forming organs and certain disorders involving the immune mechanism History of anemia Personal history of other diseases of the musculoskeletal system and connective tissue History of arthritis Personal history of other diseases of the respiratory system History of asthma Personal history of other mental and behavioral disorders History of depression [2] Past Surgical History: Procedure Laterality Date SECTION, LOW TRANSVERSE N/A Section from [facility] HYSTERECTOMY N/A Hysterectomy from [facility] KIDNEY SURGERY N/A Kidney Surgery from [facility] OTHER SURGICAL HISTORY N/A Removal Of Tubal from [facility] [3] Family History Problem Relation Name Age of Onset Cardiac disorder Father Other cancer Mother [4] Tobacco Use Smoking status: Every Day Substance Use Topics Alcohol use: No [5] Allergies Allergen Reactions Codeine Itching Ibuprofen Nausea Fluoxetine Unknown - Patient states they do not know rxn details Fluvoxamine Unknown - Patient states they do not know rxn details Latex Unknown - Patient states they do not know rxn details Loratadine Unknown - Patient states they do not know rxn details Magnesium Sulfate Unknown - Patient states they do not know rxn details Naproxen Other - please document in the comment field makes me feel really weird Nitrofurantoin Unknown - Patient states they do not know rxn details Oxycodone Unknown - Patient states they do not know rxn details Sulfa Drugs Unknown - Patient states they do not know rxn details Sumatriptan Unknown - Patient states they do not know rxn details Trazodone Other - please document in the comment field dizziness Tony Sawant MD Resident 11/27/[id number] Cosigned by Rudy Desai MD at 11/29/2024 12:12 AM EDT Associated attestation - Rudy Desai MD - 11/29/2024 12:12 AM EDT I saw and evaluated the patient with the resident/fellow. I discussed the case with the resident/fellow and agree with the findings and plan as documented. * ED Triage Notes - Yuridia López RN - 11/22/2024 11:16 PM EDT Pt arrive to ED w concerns of worsening abd pain along w diarrhea. Pt reports she went to OSH and was sent home w zofran on 11/20. Pt reports she has stopped vomiting, but her pain is severe along w constant diarrhea. * Progress Notes - Pilar Zhou MD - 11/22/2024 11:16 PM EDT Images from the original note were not included. ED TRANSFER OF CARE NOTE Transferring provider: Jese Transferring attending: Lloyd SRINIVASAN Time: 0630 I received sign-out and accepted care of this patient from the previous ED providers caring for this patient. I reviewed the patient's history, exam, work- up, and treatment plan up to this point. Please see the primary ED Provider Note for complete elements of the history, physical exam, and ED course. PERTINENT HISTORY: In brief, Vane Su is a 49 y.o. female with relevant PMH chronic low back pain who presented to the ED for evaluation of abdominal pain and diarrhea. PENDING: I accepted care of this patient from the previous provider pending imaging results. Ultimately, imaging demonstrated the following findings: hydrosalpinx without evidence of decreased blood flow to ovaries ED Medication Administration from 11/22/2024 2316 to 11/24/2024 1241 Date/Time Order Dose Route Action 11/23/2024 0112 EDT HYDROmorphone (Dilaudid) injection 0.5 mg 0.5 mg Intravenous Given 11/23/2024 0112 EDT lactated Ringer's infusion 1,000 mL 1,000 mL Intravenous New Bag 11/23/2024 0112 EDT ondansetron (Zofran) injection 4 mg 4 mg Intravenous Given 11/23/2024 0243 EDT HYDROmorphone (Dilaudid) injection 0.5 mg 0.5 mg Intravenous Given 11/23/2024 0342 EDT lactated Ringer's infusion 1,000 mL 0 mL Intravenous Stopped 11/23/2024 0436 EDT iohexol (OMNIPaque) 300 MG/ML injection 100 mL 100 mL Intravenous Given 11/23/2024 0455 EDT HYDROmorphone (Dilaudid) injection 0.5 mg 0.5 mg Intravenous Given 11/23/2024 0621 EDT HYDROmorphone (Dilaudid) injection 1 mg 1 mg Intravenous Given 11/23/2024 0958 EDT HYDROmorphone (Dilaudid) injection 0.5 mg 0.5 mg Intravenous Given 11/23/2024 1257 EDT HYDROmorphone (Dilaudid) injection 1 mg 1 mg Intravenous Given 11/23/2024 1257 EDT lactated Ringer's bolus 1,000 mL 1,000 mL Intravenous New Bag 11/23/2024 1443 EDT lactated Ringer's bolus 1,000 mL 0 mL Intravenous Stopped 11/23/2024 1449 EDT sodium chloride 0.9 % flush 10 mL 10 mL Intravenous Given 11/23/2024 1533 EDT desvenlafaxine (Pristiq) 24 hr tablet 50 mg 50 mg Oral Given 11/23/2024 1753 EDT HYDROcodone-acetaminophen ([place]) 5-325 MG per tablet 5 mg of hydrocodone 5 mg of hydrocodone Oral Given 11/23/20242036 EDT atorvastatin (Lipitor) tablet 40 mg 40 mg Oral Given 11/23/20242036 EDT diazePAM (Valium) tablet 5 mg 5 mg Oral Given 11/23/20242036 EDT divalproex (Depakote ER) 24 hr tablet 500 mg 500 mg Oral Given 11/23/20242036 EDT lactated Ringer's infusion 1,000 mL 1,000 mL Intravenous New Bag 11/23/20242036 EDT ondansetron (Zofran) injection 4 mg 4 mg Intravenous Given 11/23/20242036 EDT tamsulosin (Flomax) 24 hr capsule 0.4 mg 0.4 mg Oral Given 11/23/20242037 EDT ketorolac (Toradol) injection 15 mg 15 mg Intravenous Given 11/23/2024 2242 EDT HYDROcodone-acetaminophen ([place]) 5-325 MG per tablet 5 mg of hydrocodone 5 mg of hydrocodone Oral Given 11/23/2024 2249 EDT lactated Ringer's infusion 1,000 mL 0 mL Intravenous Stopped 11/24/2024 0340 EDT sodium chloride 0.9 % flush 10 mL 10 mL Intravenous Given 11/24/2024 0408 EDT HYDROcodone-acetaminophen ([place]) 5-325 MG per tablet 5 mg of hydrocodone 5 mg of hydrocodone Oral Given 11/24/2024 0408 EDT ondansetron (Zofran) injection 4 mg 4 mg Intravenous Given 11/24/2024 0843 EDT desvenlafaxine (Pristiq) 24 hr tablet 50 mg 50 mg Oral Given 11/24/2024 0848 EDT HYDROcodone-acetaminophen ([place]) 5-325 MG per tablet 5 mg of hydrocodone 5 mg of hydrocodone Oral Given 11/24/2024 1120 EDT lactated Ringer's infusion 125 mL/hr Intravenous New Bag ED COURSE: Clinical Impressions as of 11/26/24 1752 Abdominal pain, generalized On reassessment, patient noted continued significant pain despite multiple doses of hydrocodone. Consulted gynecology service for further evaluation of possible intermittent torsion as source for abdominal pain with focal pendulum of hydrosalpinx. Gynecology recommended no acute gynecologic intervention at this time and further workup into potential GI sources with pain being more widespread throughout the abdomen and with other symptoms such as vomiting and diarrhea. With no obvious source for severe abdominal pain and continued requirements for multiple doses of IV hydrocodone, consulted Internal Medicine Service for evaluation for admission for continued workup/monitoring for improvement in symptoms. Patient is stable at time of admission Ultimately, this patient Was admitted (Admission) The encounter diagnosis was Abdominal pain, generalized.. Patient believed to require admission for the listed diagnoses. The Internal Medicine service was consulted for admission and wasagreeable to admit to Acute Floor (Med/Surg). ED Prescriptions Medication Sig Dispense Start Date End Date Auth. Provider oxyCODONE (Roxicodone) 5 MG immediate release tablet Take 1 tablet by mouth every 6 hours as neededfor severe pain. 12 tablet 11/26/2024 -- Oliver Kim MD naloxone (Narcan) 4 mg/0.1 mL nasal spray 1. Give 1 spray in nostril for no/slow breathing or cannot wake after opioid use 2. Call 911 3. Repeat in other nostril if symptoms continue 1 each 11/26/2024-- Oliver Kim MD polyethylene glycol (Miralax) 17 g packet Take 17 g by mouth daily as needed (For constipation). 1 each 11/26/2024 12/26/2024 Oliver Kim MD senna (Senokot) 8.6 MG tablet Take 1 tablet by mouth at night as needed for constipation. 30 tablet11/26/2024 12/26/2024 Oliver Kim MD Discharge Instructions - Follow up with your PCP in 1-2 weeks for post admission follow up and routine labs - Discuss with PCP about referral for colonoscopy given symptoms and age - Discuss with PCP about referral for urology given horseshoe kidney and small stone if you developsymptoms or lab abnormalities Disposition Admit Admitting/Attending Physician: OLIVER KIM [[id number]] Provider Care Team: WENDY ZHOU 3 [[id number]] Are they the primary team?: Yes [1] AVS Patient Signature (Lao Snapshot) - Printed 11/26/2024 AVS - Discharge to Home (Lao Snapshot) - Printed 11/26/2024 Discharge Orders Ambulatory referral to External PCP Authorized - Pilar Zhou MD Cosigned by Luis Fernando Ly MD at 11/27/2024 7:07 AM EDT Associated attestation - Luis Fernando Ly MD - 11/27/2024 7:07 AM EDT I saw and evaluated the patient with the resident/fellow. I discussed the case with the resident/fellow and agree with the findings and plan as documented. documented in this encounter Plan of Treatment Scheduled Orders Name Type Priority Associated Diagnoses Orde r Schedule Ova and Parasite Exam, Fecal Microbiology STAT STAT (Lab) for 1 Occurrences starting 11/24/2024 until 11/24/2024 Scheduled Referrals Name Type Priority Associated Diagnoses Order Schedule Ambulatory referral to External PCP Outpatient Referral Routine Abdominal pain, generalized 1 Occurrences starting 11/26/2024 until 05/29/2026 documented as of this encounter Procedures Procedure Name Priority Date/Time Associated Diagnosis Comments TISSUE TRANSGLUTAMINASE (TTG) AB, IGA (SO) Routine 11/26/2024 1:14 AM EDT CBC W/O DIFFERENTIAL Pending Discharge 11/26/2024 1:14 AM EDT BASIC METABOLIC PANEL, PLASMA Pending Discharge 11/26/2024 1:14 AM EDT EXTRA TUBE LAVENDER TOP Routine 11/26/19 3:18 AM EDT EXTRA TUBES Routine 11/25/2024 3:18 AM EDT MAGNESIUM, PLASMA Routine 11/25/2024 3:1 8 AM EDT BASIC METABOLIC PANEL, PLASMA Routine 11/25/2024 3:18 AM EDT CHLAMYDIA TRACHOMATIS DNA BY PCR Routine 11/24/2024 8:12 PM EDT NEISSERIA GONORRHEA DNA BY PCR Routine 11/24/2024 8:12 PM EDT ECG ADULT Routine 11/24/2024 12:48 PM EDT COMPREHENSIVE GI PANEL BY PCR STAT 11/23/2024 8:42 PM EDT CLOSTRIDIODES (CLOSTRIDIUM) DIFFICILE,PCR STAT Add-on 11/23/2024 8:42 PM EDT HELICOBACTER PYLORI ANTIGEN Add-On 11/23/2024 8:42 PM EDT CANCER ANTIGEN, GI (CA 19.9) STAT 11/23/2024 12:54 PM EDT CA 125 STAT 11/23/2024 12:54 PM EDT CEA, SERUM STAT 11/23/2024 12:54 PM EDT US PELVIS TRANSVAGINAL STAT 7:[address] ABDOMEN PELVIS W IV CONTRAST STAT 11/23/2024 4:46 AM EDT URINALYSIS WITH REFLEX MICROSCOPIC STAT 11/23/2024 1:10 AM EDT ED HIV 1/2 ANTIBODY/ANTIGEN SCREEN WITH REFLEX TO HIV I/II DIFFERENTIATION STAT 11/23/2024 12:36 AM EDT ED PROTOCOL HIV 1/2 ANTIBODY/ANTIGEN SCREEN W/REFLEX TO HIV 1/2 ANTIBODY DIFFERENTIATION STAT 11/23/2024 12:36 AM EDT HEPATITIS C ANTIBODY - ED W/REFLEX TO HCV QUANT PCR STAT 11/23/2024 12:36 AM EDT PROTHROMBIN TIME(PT) / INR STAT 11/23/2024 12:36 AM EDT CBC WITH AUTO DIFFERENTIAL STAT 11/23/2024 12:36 AM EDT C-REACTIVE PROTEIN, PLASMA STAT Add-on 11/23/2024 12:36 AM EDT TEST QUALITATIVE PLASMA STAT 11/23/2024 12:36 AM EDT MAGNESIUM, PLASMA STAT 11/23/2024 12:36 AM EDT LIPASE, PLASMA STAT 11/23/2024 12:36 AM EDT BLOOD GAS PANEL, VENOUS STAT 11/24/19 12:36 AM EDT COMPREHENSIVE METABOLIC PANEL, PLASMA STAT 11/23/2024 12:36 AM EDT documented in this encounter Results * (ABNORMAL) CBC W/O Differential (11/26/2024 1:14 AM EDT) WBC Count 7.28 3.70 - 10.30 10*3/uL LAB HEMATOLOGY METHOD 11/26/2024 1:39 AM EDT [facility] RBC Count 3.88(L) 3.90 - 5.20 10*6/uL LAB HEMATOLOGY METHOD 11/26/2024 1:39 AM EDT [facility] HGB 12.5 11.2 - 15.7 g/dL LAB HEMATOLOGY METHOD 11/26/2024 1:39 AM EDT [facility] HCT 35.9 34.0 - 45.0 % LAB HEMATOLOGY METHOD 11/26/2024 1:39 AM EDT [facility] Platelet Count 211 155 - 369 10*3/uL LAB HEMATOLOGY METHOD 11/26/2024 1:39 AM EDT [facility] MCV 93 79 - 98 fL LAB HEMATOLOGY METHOD 11/26/2024 1:39 AM EDT [facility] MCH 32.2(H) 26.0 - 32.0 pg LAB HEMATOLOGY METHOD 11/26/2024 1:39 AM EDT [facility] [facility] MCHC 34.8 30.7 - 35.5 g/dL LAB HEMATOLOGY METHOD 11/26/2024 1:39 AM EDT [facility] RDW 12.4 11.5 - 14.5 % LAB HEMATOLOGY METHOD 11/26/2024 1:39 AM EDT [facility] MPV 10.9 8.8 - 12.5 fL LAB HEMATOLOGY METHOD 11/26/2024 1:39 AM EDT [facility] nRBC 0.0 <=0.0 per 100 WBCs LAB HEMATOLOGY METHOD 11/26/2024 1:39 AM EDT [facility] Blood Venous blood specimen / Unknown Venipuncture / Unknown 11/26/2024 1:14 AM EDT 11/26/2024 1:34 AM EDT us Oliver Kim MD LAB BLOOD ORDERABLES Final Resul t [facility] [address] [place] [address] * (ABNORMAL) Basic Metabolic Panel, Plasma (11/26/2024 1:14 AM EDT) Glucose, Plasma 125(H) 74 - 99 mg/dL 11/26/2024 2:05 AM EDT [facility] BUN, Plasma 9 7 - 21 mg/dL 11/26/2024 2:05 AM EDT [facility] Creatinine, Plasma 0.71 0.60 - 1.10 mg/dL 11/26/2024 2:05 AM EDT [facility] BUN/Creatinine Ratio 13 11/26/2024 2:05 AM EDT [facility] Sodium, Plasma 137 136 - 145 mmol/L 11/26/2024 2:05 AM EDT [facility] Potassium, Plasma 4.3 3.6 - 4.9 mmol/L 11/26/2024 2:05 AM EDT [facility] Chloride, Plasma 102 97 - 107 mmol/L 11/26/2024 2:05 AM EDT [facility] CO2, Plasma 23 22 - 29 mmol/L 11/26/2024 2:05 AM EDT [facility] Anion Gap 12 6 - 16 mmol/L 11/26/2024 2:05 AM EDT [facility] Total Calcium, Plasma 8.9 8.9 - 10.2 mg/dL 11/26/2024 2:05 AM EDT [facility] eGFRcr 103.7 mL/min/1.7 3m*2 11/26/2024 2:05 AM EDT [facility] Comment:Reported eGFRcr in m L/min/1.73m2 is based the CKD-EPI 2020 equation that does not use a race coefficient. Blood Venous blood specimen / Unknown Venipuncture / Unknown 11/26/2024 1:14 AM EDT 11/26/2024 1:33 AM EDT us Oliver Kim MD LAB BLOOD ORDERABLES Final Resul t [facility] [address] [place] [address] * Tissue Transglutaminase (tTG) Ab, IgA (SO) (11/26/2024 1:14 AM EDT) Tissue Transglutaminase (tTG) Ab, IgA <1.02 0.00 - 4.99 FLU 11/30/2024 5:28 AM EDT [facility] Blood Venous blood specimen / Unknown Venipuncture / Unknown 11/26/2024 1:14 AM EDT 11/26/2024 1:33 AM EDT Narrative [facility] - 11/30/2024 5:28 AM EDT INTERPRETIVE INFORMATION: Tissue Transglutaminase (tTG) Antibody, IgA Presence of the tissue transglutaminase (tTG) IgA antibody is associated with gluten-sensitive enteropathies such as celiac disease and dermatitis herpetiformis. Individuals with positive results should be confirmed with small intestinal biopsy to establish celiac disease diagnosis. tTG IgA antibody concentrations greater than 50 FLU exhibits higher correlation with results of duodenal biopsies consistent with celiac disease. For antibody concentrations greater than or equal to 5 FLU but less than 10 FLU, additional testing for endomysial (VAUGHN) IgA concentrations may improve the positive predictive value for disease. A decrease in tTG IgA antibody concentration after initiation of a gluten-free diet may indicate a response to therapy. Performed By: [facility] [address] [place] [address] Cardiac Exercise Physiologist: Augustine Osei MD, PhD CLIA Number: [id number] us Oliver Kim MD LAB REF LAB BLOOD AND FLUID ORD Final Result [facility] [address] [place] [address] * Lavender Top (11/25/2024 3:18 AM EDT) Pathologist [facility] Extra Hold for add-ons 11/25/2024 6:01 AM EDT [facility] Comment:Auto resulted. Blood Venous blood specimen / Unknown 11/25/2024 3:18 AM EDT 11/25/2024 3:44 AM EDT us Oliver Kim MD LAB BLOOD ORDERABLES Final Resul t Performing Organization Address [facility]/ZIP Co de Phone Number [facility] [address] [place] [address] * Magnesium (11/25/2024 3:18 AM EDT) Pathologist [facility] Magnesium, Plasma 2.0 1.9 - 2.4 mg/dL 11/25/2024 4:20 AM EDT [facility] Blood Venous blood specimen / Unknown Venipuncture / Unknown 11/25/2024 3:18 AM EDT 11/25/2024 3:44 AM EDT us Oliver Kim MD LAB BLOOD ORDERABLES Final Resul t Performing Organization Address City/[facility]/ZIP Co de Phone Number [facility] [address] [place] [address] * Basic metabolic panel (11/25/2024 3:18 AM EDT) Pathologist [facility] Glucose, Plasma 95 74 - 99 mg/dL 11/25/2024 4:20 AM EDT [facility] BUN, Plasma 11 7 - 21 mg/dL 11/25/2024 4:20 AM EDT [facility] Creatinine, Plasma 0.82 0.60 - 1.10 mg/dL 11/25/2024 4:20 AM EDT [facility] BUN/Creatinine Ratio 13 11/25/2024 4:20 AM EDT [facility] Sodium, Plasma 140 136 - 145 mmol/L 11/25/2024 4:20 AM EDT [facility] Potassium, Plasma 4.2 3.6 - 4.9 mmol/L 11/25/2024 4:20 AM EDT [facility] Chloride, Plasma 102 97 - 107 mmol/L 11/25/2024 4:20 AM EDT [facility] CO2, Plasma 26 22 - 29 mmol/L 11/25/2024 4:20 AM EDT [facility] Anion Gap 12 6 - 16 mmol/L 11/25/2024 4:20 AM EDT [facility] Total Calcium, Plasma 9.1 8.9 - 10.2 mg/dL 11/25/2024 4:20 AM EDT [facility] eGFRcr 87.3 mL/min/1.7 3m*2 11/25/2024 4:20 AM EDT [facility] Comment:Reported eGFRcr in m L/min/1.73m2 is based the CKD-EPI 2020 equation that does not use a race coefficient. Blood Venous blood specimen / Unknown Venipuncture / Unknown 11/25/2024 3:18 AM EDT 11/25/2024 3:44 AM EDT us Oliver Kim MD LAB BLOOD ORDERABLES Final Resul t [facility] [address] [place] [address] * Neisseria gonorrhea DNA by PCR (11/24/2024 8:12 PM EDT) Neisseria gonorrhea DNA PCR Result Not Detected Not Detected. 11/25/2024 10:33 PM EDT [facility] Urine Cervix uteri structure / Unknown Non-blood Collection / Unknown 11/24/2024 8:12 PM EDT 11/24/2024 8:24 PM EDT Narrative [facility] - 11/25/2024 10:33 PM EDT This test is performed by the [employer] m2000 instrument for Real Time PCR C. trachomatis and N. gonorrhea. This test is FDA approved for use with endocervical, vaginal, and urine specimens. This test is used for clinical purposes. It should not be regarded as invesigational or for research. [facility] is certified under the Clinical Laboratory Improvement Amendments of 1988 (CLIA-88) as qualified to perform high complexity clinical laboratory testing. us Oliver Kim MD LAB MICROBIOLOGY - GENERAL ORDER PAULA Final Result Performing Organization Address City/[facility]/ZIP Co de Phone Number [facility] [address] [place] [address] * Chlamydia trachomatis by PCR (11/24/2024 8:12 PM EDT) Chlamydia trachomatis DNA PCR Result Not Detected Not Detected 11/25/2024 10:33 PM EDT [facility] Urine Cervix uteri structure / Unknown Non-blood Collection / Unknown 11/24/2024 8:12 PM EDT 11/24/2024 8:24 PM EDT Narrative [facility] - 11/25/2024 10:33 PM EDT This test is performed by the [employer] m2000 instrument for Real Time PCR C. trachomatis and N. gonorrhea. This test is FDA approved for use with endocervical, vaginal, and urine specimens. This test is used for clinical purposes. It should not be regarded as invesigational or for research. [facility] is certified under the Clinical Laboratory Improvement Amendments of 1988 (CLIA-88) as qualified to perform high complexity clinical laboratory testing. us Oliver Kim MD LAB MICROBIOLOGY - GENERAL ORDER PAULA Final Result Performing Organization Address City/[facility]/ZIP Co de Phone Number [facility] [address] [place] [address] * ECG Adult (11/24/2024 12:48 PM EDT) EKG DIAGNOSIS CLASS Normal MUSE ECG Ventricular Rate 68 BPM MUSE ECG Atrial Rate 68 BPM MUSE ECG [place] Interval 130 ms MUSE ECG QRSD Interval 82 ms MUSE ECG QT Interval 380 ms MUSE ECG QTC Interval 404 ms MUSE ECG P [place] 64 degrees MUSE ECG R [place] 70 degrees MUSE ECG T Wave [place] 55 degrees MUSE ECG Diagnosis Normal sinus rhythm MUSE ECG Diagnosis Normal ECG MUSE ECG Diagnosis MUSE ECG Diagnosis Confirmed by Gaston Cantu ([id number]) on 11/24/2024 1:04:29 PM MUSE ECG 11/24/2024 12:4 8 PM EDT 11/24/2024 1:04 PM EDT us Oliver Kim MD ECG ORDERABLES Final Result [facility]USE ECG * Helicobacter pylori Antigen (11/23/2024 8:42 PM EDT) Helicobacter pylori Antigen Result Negative Negative 11/24/2024 7:53 PM EDT [facility] Stool Rectum structure / Unknown Non-blood Collection / Unknown 11/23/2024 8:42 PM EDT 11/23/2024 8:58 PM EDT Oliver Kim MD LAB MICROBIOLOGY - GENERAL ORDER PAULA Final Result [facility] [address] [place] [address] * Clostridiodes (Clostridium) difficile PCR (11/23/2024 8:42 PM EDT) C difficile PCR toxin B gene DNA Result Not Detected Not Detected 11/24/2024 3:18 PM EDT [facility] Stool Rectum structure / Unknown Non-blood Collection / Unknown 11/23/2024 8:42 PM EDT 11/23/2024 8:58 PM EDT Narrative [facility] - 11/24/2024 3:18 PM EDT This test is FDA approved for use with liquid stool specimens. This test is used for clinical purposes. It should not be regarded as investigational or for research. This laboratory is certified under the Clinical Laboratory Improvement Amendments of 1988 (CLIA-88) as qualified to perform high complexity clinical laboratory testing. John Sheets MD LAB MICROBIOLOGY - GENERAL OR DERABLES Final Result [facility] [address] [place] [address] * Comprehensive GI Panel by PCR (11/23/2024 8:42 PM EDT) Campylobacter PCR Result Not Detected Not Detected 11/24/2024 7:52 AM EDT [facility] Plesiomonas shigelloides PCR Result Not Detected Not Detected 11/24/2024 7:52 AM EDT [facility] Salmonella PCR Result Not Detected Not Detected 11/24/2024 7:52 AM EDT [facility] Vibrio species PCR Result Not Detected Not Detected 11/24/2024 7:52 AM EDT [facility] Vibrio cholerae PCR Result Not Detected Not Detected 11/24/2024 7:52 AM EDT [facility] Yersinia enterocolitica PCR Result Not Detected Not Detected 11/24/2024 7:52 AM EDT [facility] Enteroaggregative E. coli (EAEC) PCR Result Not Detected Not Detected 11/24/2024 7:52 AM EDT [facility] Enteropathogenic E. coli (EPEC) PCR Result Not Detected Not Detected 11/24/2024 7:52 AM EDT [facility] Enterotoxigenic E. coli (ETEC) lt/st PCR Result Not Detected Not Detected 11/24/2024 7:52 AM EDT [facility] Shiga-like Toxin-Producing E.coli (STEC) stx1/stx2 PCR Resu Not Detected Not Detected 11/24/2024 7:52 AM EDT [facility] E coli 0157 PCR Result Not Detected Not Detected 11/24/2024 7:52 AM EDT [facility] Shigella/Enteroinvas alvaro E. coli (EIEC) PCR Result Not Detected Not Detected 11/24/2024 7:52 AM EDT [facility] Cryptosporidium PCR Result Not Detected Not Detected 11/24/2024 7:52 AM EDT [facility] Cyclospora cayetanensis PCR Result Not Detected Not Detected 11/24/2024 7:52 AM EDT [facility] Entamoeba histolytica PCR Result Not Detected Not Detected 11/24/2024 7:52 AM EDT [facility] Giardia duodenalis (aka Giardia lamblia) PCR Result Not Detected Not Detected 11/24/2024 7:52 AM EDT [facility] Adenovirus F 40/41 PCR Result Not Detected Not Detected 11/24/2024 7:52 AM EDT [facility] Astrovirus PCR Result Not Detected Not Detected 11/24/2024 7:52 AM EDT [facility] Norovirus GI/GII PCR Result Not Detected Not Detected 11/24/2024 7:52 AM EDT [facility] Rotavirus A PCR Result Not Detected Not Detected 11/24/2024 7:52 AM EDT [facility] Sapovirus PCR Result Not Detected Not Detected 11/24/2024 7:52 AM EDT [facility] Stool Rectum structure / Unknown Non-blood Collection / Unknown 11/23/2024 8:42 PM EDT 11/23/2024 8:58 PM EDT Narrative [facility] - 11/24/2024 7:52 AM EDT This specimen was tested for the following analytes: Campylobacter species, Plesiomonas shigelloides, Salmonella species, Vibrio species, Vibrio cholerae, Yersinia enterolitica, Enteroaggregative E. coli (EAEC), Enteropathogenic E. Coli (EPEC), Enterotoxigenic E. coli (ETEC), Shiga-like toxin-producing E. coli (STEC), Shigella/Enteroinvasive E. coli (EIEC), Cryptosporidium, Cyclospora cayetanensis, Entamoeba histolytica, Giardia lamblia, Adenovirus f40/41, Astrovirus, Norovirus GI/GII, Rotavirus A, and Sapovirus. Note: Clostridium difficile toxin a/b will no longer be resulted using this platform. Please order the Clostridium difficile by PCR assay if clinically indicated. us Rudy Desai MD LAB MICROBIOLOGY - GENERAL OR DERABLES Final Result Performing Organization Address City/[facility]/ZIP Co de Phone Number [facility] [address] [place] [address] * Cancer antigen 19-9 (11/23/2024 12:54 PM EDT) CA 19.9 8.15 <36 U/mL 11/23/2024 1:4 8 PM EDT [facility] Blood Venous blood specimen / Unknown Venipuncture / Unknown 11/23/2024 12:54 PM EDT 11/23/2024 1:12 PM EDT Narrative [facility] - 11/23/2024 1:48 PM EDT Performed by Jerome electrochemiluminescent immunoassay. Results obtained with different test methods or kits cannot be used interchangeably. Merrill Saavedra MD LAB BLOOD ORDERABLES Molly l Result Performing Organization Address [facility] Co de Phone Number [facility] [address] [place] [address] * CA 125 (11/23/2024 12:54 PM EDT) CA 125 7.96 <=38.00 U/mL 11/23/2024 1:48 PM EDT [facility] Blood Venous blood specimen / Unknown Venipuncture / Unknown 11/23/2024 12:54 PM EDT 11/23/2024 1:12 PM EDT Narrative [facility] - 11/23/2024 1:48 PM EDT Performed by [employer] electrochemiluminescent immunoassay. Results obtained with different test methods or kits cannot be used interchangeably. Merrill Saavedra MD LAB BLOOD ORDERABLES Molly l Result Performing Organization Address City/[facility]/[place] [address] * CEA (11/23/2024 12:54 PM EDT) CEA, Serum <1.8 <4.0 ng/mL 11/23/2024 1:48 PM EDT [facility] Blood Venous blood specimen / Unknown Venipuncture / Unknown 11/23/2024 12:54 PM EDT 11/23/2024 1:12 PM EDT Narrative [facility] - 11/23/2024 1:48 PM EDT Normal range for smokers: < 5.5 ng/ml Normal range for non-smokers: <=4.0 ng/ml Performed by Jerome electrochemiluminescent immunoassay. Results obtained with different test methods or kits cannot be used interchangeably. us Merrill Saavedra MD LAB BLOOD ORDERABLES Molly l Result [facility] [address] [place] [address] * US Pelvis Transvaginal (11/23/2024 7:07 AM EDT) Anatomical Region Laterality Modality Pelvis Ultrasound Impressions 11/23/2024 8:17 AM EDT Right sided hydrosalpinx. No evidence of ovarian torsion. CRITICAL RESULT: No. COMMUNICATION: Per this written report. By electronically signing this report, I, the attending physician, attest that I have personally reviewed the images/data for the above examination(s) and agree with the final edited report. Drafted by Felipe Archibald MD on 11/23/2024 7:44 AM Final report signed by Miles Manjarrez MD on 11/23/2024 8:17 AM Narrative 11/23/2024 8:17 AM EDT CLINICAL INDICATION: eval for torsion, large ovarian cyst TECHNIQUE: Transvaginal pelvic ultrasound was performed with the acquisition of multiple grayscale images in various imaging planes. Given the patient s history, detailed Duplex Doppler interrogation of the ovaries/adnexa was also undertaken to improve diagnostic accuracy while evaluating for possible underlying torsion or mass. This included the acquisition of dedicated color and spectral Doppler images. COMPARISON: Same day CT chest abdomen pelvis. FINDINGS: Uterus: The uterus is surgically absent. Ovaries: Right: Normal appearance without suspicious mass. The right measures 2.3 x 1.0 x 1.4 cm. Cystic tubular structure in the right adnexa, with appearance of hydrosalpinx. Left: Normal appearance without suspicious mass. The left measures3.6 x 2.2 x 2.0 cm. There are no adnexal masses. Duplex Doppler of ovaries/adnexa: Right ovary/adnexa: There is normal arterial and venous flow as demonstrated with spectral and color Doppler. Spectral waveforms are within normal limits Left ovary/adnexa: There is normal arterial and venous flow as demonstrated with spectral and color Doppler. Spectral waveforms are within normal limits Fluid: Trace free fluid within the pelvis. Procedure Note Miles Manjarrez MD - 11/23/2024 CLINICAL INDICATION: eval for torsion, large ovarian cyst TECHNIQUE: Transvaginal pelvic ultrasound was performed with the acquisition ofmultiple grayscale images in various imaging planes. Given the patient s history, detailed Duplex Doppler interrogation of theovaries/adnexa was also undertaken to improve diagnostic accuracy whileevaluating for possible underlying torsion or mass. This included theacquisition of dedicated color and spectral Doppler images. COMPARISON: Same day CT chest abdomen pelvis. FINDINGS: Uterus: The uterus is surgically absent. Ovaries: Right: Normal appearance without suspicious mass. The right measures 2.3 x1.0 x 1.4 cm. Cystic tubular structure in the right adnexa, with appearance ofhydrosalpinx. Left: Normal appearance without suspicious mass. The left measures3.6 x2.2 x 2.0 cm. There are no adnexal masses. Duplex Doppler of ovaries/adnexa: Right ovary/adnexa: There is normal arterial and venous flow asdemonstrated with spectral and color Doppler. Spectral waveforms arewithin normal limits Left ovary/adnexa: There is normal arterial and venous flow asdemonstrated with spectral and color Doppler. Spectral waveforms arewithin normal limits Fluid: Trace free fluid within the pelvis. IMPRESSION: Right sided hydrosalpinx. No evidence of ovarian torsion. CRITICAL RESULT: No. COMMUNICATION: Per this written report. By electronically signing this report, I, the attending physician, attestthat I have personally reviewed the images/data for the aboveexamination(s) and agree with the final edited report. Drafted by Felipe Archibald MD on 11/23/2024 7:44 AM Final report signed by Miles Manjarrez MD on 11/23/2024 8:17 AM us Rudy Desai MD IMG US PROCEDURES Final Resul t * CT Abdomen Pelvis w IV Contrast (11/23/2024 4:46 AM EDT) Anatomical Region Laterality Modality Abdomen, Pelvis Computed Tomogra phy Impressions 11/23/2024 5:18 AM EDT Horseshoe kidney, with calculi of the left renal moiety measuring up to 3 mm, with associated mild hydronephrosis. Tubular cystic structure in the right adnexa measuring up to 63 mm. This is nonspecific but could represent hydrosalpinx, ovarian cystic lesion or duplication or peritoneal inclusion cyst. CRITICAL RESULT: No. COMMUNICATION: Per this written report. Preliminary report signed by Travis Davis MD on 11/23/2024 5:07 AM By electronically signing this report, I, the attending physician, attest that I have personally reviewed the images/data for the above examination(s) and agree with the final edited report. Drafted by Travis Davis MD on 11/23/2024 4:49 AM Final report signed by Santo Amezquita MD on 11/23/2024 5:18 AM Narrative 11/23/2024 5:18 AM EDT CLINICAL INDICATION: Abdominal pain, acute, nonlocalized TECHNIQUE: Imaging of the abdomen and pelvis was performed, from lung bases through pubic symphysis, using spiral technique, following administration of IV contrast, Omnipaque 300, 100 mL. Delayed (excretory phase) images were performed through the kidneys. Reformatted images in the coronal and sagittal planes were generated from the axial data set to facilitate diagnostic accuracy. Total DLP (Dose-Length Product): 918.54 mGy.cm. Please note: The reported value represents the total of one or more individual components during the CT acquisition on this date and at this time, and as such, the same value may appear in more than one CT report depending on the interpreting/reporting physicians. COMPARISON: None. FINDINGS: Lung Bases: The lung bases are clear. Liver/Gallbladder/Biliary system: Fatty deposition adjacent to the falciform ligament. There are a few hypoattenuating subcentimeter foci of the right hemiliver which demonstrate subsequent enhancement on delayed images, consistent with hemangiomas, for example an 8 mm hypoattenuating focus in segment 8 (series 3 image 74). Normal Gallbladder. No intra- or extra-hepatic biliary ductal dilatation. Spleen: The spleen enhances homogeneously. Pancreas: The pancreas enhances homogeneously. Adrenals: The adrenals are morphologically unremarkable. Kidneys: There is a horseshoe kidney. 3 mm renal calculus off of the left renal moiety (series 3 image 122). Additional punctate calculus of the left renal moiety (series 3 image 105). No ureteral calculi. Mild left hydronephrosis. Bowel/Mesentery: The small bowel loops are not dilated. The large bowel loops are not dilated. The appendix is not visualized and may be surgically absent. Vessels/Lymph Nodes: The abdominal aorta is unremarkable. No lymphadenopathy within the abdomen or pelvis. Fluid Survey: No free fluid in the abdomen. No free fluid in the pelvis. Pelvis: Prior hysterectomy. Underdistended urinary bladder. No suspicious pelvic masses. There is a fluid attenuation tubular cystic structure in the right adnexa measuring up to 63 mm (series 3 image 219). Body Wall: Normal. Bones: No acute fracture. Procedure Note Santo Amezquita MD - 11/23/2024 CLINICAL INDICATION: Abdominal pain, acute, nonlocalized TECHNIQUE: Imaging of the abdomen and pelvis was performed, from lung bases throughpubic symphysis, using spiral technique, following administration of IVcontrast, Omnipaque 300, 100 mL. Delayed (excretory phase) images wereperformed through the kidneys. Reformatted images in the coronal andsagittal planes were generated from the axial data set to facilitatediagnostic accuracy. Total DLP (Dose-Length Product): 918.54 mGy.cm. Please note: The reportedvalue represents the total of one or more individual components during theCT acquisition on this date and at this time, and as such, the same valuemay appear in more than one CT report depending on theinterpreting/reporting physicians. COMPARISON: None. FINDINGS: Lung Bases: The lung bases are clear. Liver/Gallbladder/Biliary system: Fatty deposition adjacent to thefalciform ligament. There are a few hypoattenuating subcentimeter foci ofthe right hemiliver which demonstrate subsequent enhancement on delayedimages, consistent with hemangiomas, for example an 8 mm hypoattenuatingfocus in segment 8 (series 3 image 74). Normal Gallbladder. No intra- orextra-hepatic biliary ductal dilatation. Spleen: The spleen enhances homogeneously. Pancreas: The pancreas enhances homogeneously. Adrenals: The adrenals are morphologically unremarkable. Kidneys: There is a horseshoe kidney. 3 mm renal calculus off of the leftrenal moiety (series 3 image 122). Additional punctate calculus of theleft renal moiety (series 3 image 105). No ureteral calculi. Mild lefthydronephrosis. Bowel/Mesentery: The small bowel loops are not dilated. The large bowelloops are not dilated. The appendix is not visualized and may besurgically absent. Vessels/Lymph Nodes: The abdominal aorta is unremarkable. Nolymphadenopathy within the abdomen or pelvis. Fluid Survey: No free fluid in the abdomen. No free fluid in the pelvis. Pelvis: Prior hysterectomy. Underdistended urinary bladder. No suspiciouspelvic masses. There is a fluid attenuation tubular cystic structure inthe right adnexa measuring up to 63 mm (series 3 image 219). Body Wall: Normal. Bones: No acute fracture. IMPRESSION: Horseshoe kidney, with calculi of the left renal moiety measuring up to 3mm, with associated mild hydronephrosis. Tubular cystic structure in the right adnexa measuring up to 63 mm. Thisis nonspecific but could represent hydrosalpinx, ovarian cystic lesion orduplication or peritoneal inclusion cyst. CRITICAL RESULT: No. COMMUNICATION: Per this written report. Preliminary report signed by Travis Davis MD on 11/23/2024 5:07 AM By electronically signing this report, I, the attending physician, attestthat I have personally reviewed the images/data for the aboveexamination(s) and agree with the final edited report. Drafted by Travis Davis MD on 11/23/2024 4:49 AM Final report signed by Santo Amezquita MD on 11/23/2024 5:18 AM us Rudy Desai MD IMG CT PROCEDURES Final Resul t * Urinalysis with reflex microscopic (Culture NOT Included) (11/23/2024 1:10 AM EDT) Color, Urine Yellow LAB URINALYSIS - AUTOMATED METHOD 11/23/2024 1:19 AM EDT [facility] Clarity, Urine Clear LAB URINALYSIS - AUTOMATED METHOD 11/23/2024 1:19 AM EDT [facility] Spec [place], Urine 1.017 1.005 - 1.030 LAB URINALYSIS - AUTOMATED METHOD 11/23/2024 1:19 AM EDT [facility] pH, Urine 6.0 5.0 - 8.0 LAB URINALYSIS - AUTOMATED METHOD 11/23/2024 1:19 AM EDT [facility] Protein, Urine Negative Negative mg/dL LAB URINALYSIS - AUTOMATED METHOD 11/23/2024 1:19 AM EDT [facility] Glucose, Urine Negative Negative mg/dL LAB URINALYSIS - AUTOMATED METHOD 11/23/2024 1:19 AM EDT [facility] Ketones, Urine Negative Negative mg/dL LAB URINALYSIS - AUTOMATED METHOD 11/23/2024 1:19 AM EDT [facility] Blood, Urine Negative Negative LAB URINALYSIS - AUTOMATED METHOD 11/23/2024 1:19 AM EDT [facility] Bilirubin, Urine Negative Negative LAB URINALYSIS - AUTOMATED METHOD 11/23/2024 1:19 AM EDT [facility] Urobilinogen, Urine 0.2 0.2 to 1.0 mg/dL LAB URINALYSIS - AUTOMATED METHOD 11/23/2024 1:19 AM EDT [facility] Leukocytes, Urine Negative Negative LAB URINALYSIS - AUTOMATED METHOD 11/23/2024 1:19 AM EDT [facility] Nitrite, Urine Negative Negative LAB URINALYSIS - AUTOMATED METHOD 11/23/2024 1:19 AM EDT [facility] Urine Urine specimen obtained by clean catch procedure / Unknown Non-blood Collection / Unknown 11/23/2024 1:10 AM EDT 11/23/2024 1:17 AM EDT us Rudy Desai MD LAB URINE ORDERABLES Final Re sult [facility] [address] [place] [address] * C-reactive protein (11/23/2024 12:36 AM EDT) Pathologist [facility] CRP, Plasma <3.0 <=8.0 mg/L 11/23/2024 5:10 PM EDT [facility] Blood Venous blood specimen / Unknown Venipuncture / Unknown 11/23/2024 12:36 AM EDT 11/23/2024 12:45 AM EDT Narrative [facility] - 11/23/2024 5:10 PM EDT This CRP test is appropriate for assessment of infection, systemic inflammation and/or tissue injury. To assess cardiovascular disease risk order high sensitivity CRP (CRPH). us Luis Fernando Ly MD LAB BLOOD ORDERABLES Final Re sult Performing Organization Address City/[facility]/ZIP Co de Phone Number [facility] [address] [place] [address] * ED HIV 1/2 Antibody/Antigen Screen w/Reflex to HIV 1/2 Differentiation (11/23/2024 12:36 AM EDT) [facility] HIV 1 & 2 Antibody/Antigen Screen Non Reactive Non Reactive 11/23/2024 1:41 AM EDT [facility] Comment:Screening for HIV 1 & 2 antibodies, and P24 antigen is NONREACTIVE. No confirmatory testing is required. Blood Venous blood specimen / Unknown Venipuncture / Unknown 11/23/2024 12:36 AM EDT 11/23/2024 1:03 AM EDT us Rudy Desai MD LAB BLOOD ORDERABLES Final Re sult [facility] [address] [place] [address] * Hepatitis C Antibody - ED (11/23/2024 12:36 AM EDT) [facility] Hepatitis C Antibody Negative Negative 11/23/2024 1:44 AM EDT [facility] Blood Venous blood specimen / Unknown Venipuncture / Unknown 11/23/2024 12:36 AM EDT 11/23/2024 1:03 AM EDT Rudy Desai MD LAB BLOOD ORDERABLES Final Re sult Performing Organization Address City/[facility]/ZIP Co de Phone Number [facility] [address] [place] [address] * hCG qualitative (11/23/2024 12:36 AM EDT) Test Negative Negative 11/23/2024 1:34 AM EDT [facility] Blood Venous blood specimen / Unknown Venipuncture / Unknown 11/23/2024 12:36 AM EDT 11/23/2024 12:45 AM EDT Narrative [facility] - 11/23/2024 1:34 AM EDT Reference Range: Males and non- females: Negative. Rudy Desai MD LAB BLOOD ORDERABLES Final Re sult Performing Organization Address [facility] Co de Phone Number [facility] [address] [place] [address] * (ABNORMAL) Blood gas panel, venous (11/23/2024 12:36 AM EDT) pH, Venous 7.40 7.32 - 7.43 LAB HEMATOLOGY METHOD 11/23/2024 1:06 AM EDT [facility] pCO2, Venous 46 37 - 52 mmHg LAB HEMATOLOGY METHOD 11/23/2024 1:06 AM EDT [facility] pO2, Venous 26 25 - 40 mmHg LAB HEMATOLOGY METHOD 11/23/2024 1:06 AM EDT [facility] SO2, Measured, Venous 47(L) 65 - 80 % LAB HEMATOLOGY METHOD 11/23/2024 1:06 AM EDT [facility] Base Excess, Venous 3.5(H) -2.0 - 3.0 mmol/L LAB HEMATOLOGY METHOD 11/23/2024 1:06 AM EDT [facility] Bicarbonate, Calculated, Venous 29(H) 22 - 26 mmol/L LAB HEMATOLOGY METHOD 11/23/2024 1:06 AM EDT [facility] Hematocrit, Whole Blood 41.2 34.0 - 45.0 % LAB HEMATOLOGY METHOD 11/23/2024 1:06 AM EDT [facility] Sodium, Whole Blood 142 136 - 145 mmol/L LAB HEMATOLOGY METHOD 11/23/2024 1:06 AM EDT [facility] Potassium, Whole Blood 4.0 3.6 - 4.9 mmol/L LAB HEMATOLOGY METHOD 11/23/2024 1:06 AM EDT [facility] Chloride, Whole Blood 104 97 - 107 mmol/L LAB HEMATOLOGY METHOD 11/23/2024 1:06 AM EDT [facility] Glucose, Whole Blood 86 74 - 99 mg/dL LAB HEMATOLOGY METHOD 11/23/2024 1:06 AM EDT [facility] Lactate, Venous, Whole Blood 1.6 0.5 - 2.2 mmol/L LAB HEMATOLOGY METHOD 11/23/2024 1:06 AM EDT [facility] Ionized Calcium, Whole Blood 4.5(L) 4.6 - 5.1 mg/dL LAB HEMATOLOGY METHOD 11/23/2024 1:06 AM EDT [facility] Blood Venous blood specimen / Unknown Venipuncture / Unknown 11/23/2024 12:36 AM EDT 11/23/2024 1:03 AM EDT Rudy Desai MD LAB BLOOD ORDERABLES Final Re sult Performing Organization Address City/[facility]/ZIP Co de Phone Number [facility] [address] [place] [address] * (ABNORMAL) Lipase (11/23/2024 12:36 AM EDT) Lipase, Plasma 18(L) 19 - 63 U/L 11/23/2024 1:34 AM EDT [facility] Blood Venous blood specimen / Unknown Venipuncture / Unknown 11/23/2024 12:36 AM EDT 11/23/2024 12:45 AM EDT Rudy Desai MD LAB BLOOD ORDERABLES Final Re sult Performing Organization Address City/[facility]/ZIP Co de Phone Number [facility] [address] [place] [address] * Magnesium (11/23/2024 12:36 AM EDT) Magnesium, Plasma 2.0 1.9 - 2.4 mg/dL 11/23/2024 1:34 AM EDT [facility] Blood Venous blood specimen / Unknown Venipuncture / Unknown 11/23/2024 12:36 AM EDT 11/23/2024 12:45 AM EDT Rudy Desai MD LAB BLOOD ORDERABLES Final Re sult [facility] [address] [place] [address] * (ABNORMAL) CMP (11/23/2024 12:36 AM EDT) Glucose, Plasma 89 74 - 99 mg/dL 11/23/2024 1:34 AM EDT [facility] BUN, Plasma 11 7 - 21 mg/dL 11/23/2024 1:34 AM EDT [facility] Creatinine, Plasma 0.72 0.60 - 1.10 mg/dL 11/23/2024 1:34 AM EDT [facility] BUN/Creatinine Ratio 15 11/23/2024 1:34 AM EDT [facility] Sodium, Plasma 138 136 - 145 mmol/L 11/23/2024 1:34 AM EDT [facility] Potassium, Plasma 4.1 3.6 - 4.9 mmol/L 11/23/2024 1:34 AM EDT [facility] Chloride, Plasma 102 97 - 107 mmol/L 11/23/2024 1:34 AM EDT [facility] CO2, Plasma 22 22 - 29 mmol/L 11/23/2024 1:34 AM EDT [facility] Anion Gap 14 6 - 16 mmol/L 11/23/2024 1:34 AM EDT [facility] Total Calcium, Plasma 9.1 8.9 - 10.2 mg/dL 11/23/2024 1:34 AM EDT [facility] Total Protein 6.7 6.3 - 7.9 g/dL 11/23/2024 1:34 AM EDT [facility] Albumin, Plasma 3.9 3.5 - 5.2 g/dL 11/23/2024 1:34 AM EDT [facility] AST, Plasma 14 10 - 35 U/L 11/23/2024 1:34 AM EDT [facility] ALT, Plasma 14 10 - 35 U/L 11/23/2024 1:34 AM EDT [facility] Alkaline Phosphatase, Plasma 73 35 - 104 U/L 11/23/2024 1:34 AM EDT [facility] Total Bilirubin, Plasma <0.2(L) 0.2 - 1.1 mg/dL 11/23/2024 1:34 AM EDT [facility] eGFRcr 102.0 mL/min/1.7 3m*2 11/23/2024 1:34 AM EDT [facility] Comment:Reported eGFRcr in m L/min/1.73m2 is based the CKD-EPI 2020 equation that does not use a race coefficient. Blood Venous blood specimen / Unknown Venipuncture / Unknown 11/23/2024 12:36 AM EDT 11/23/2024 12:45 AM EDT us Rudy Desai MD LAB BLOOD ORDERABLES Final Re sult [facility] [address] [place] [address] * PT-INR (11/23/2024 12:36 AM EDT) Prothrombin Time 12.4 12.0 - 14.3 sec 11/23/2024 1:05 AM EDT [facility] INR 0.9 0.9 - 1.1 11/23/2024 1:05 AM EDT [facility] Blood Venous blood specimen / Unknown Venipuncture / Unknown 11/23/2024 12:36 AM EDT 11/23/2024 12:45 AM EDT Narrative [facility] - 11/23/2024 1:05 AM EDT OPTIMAL INR RANGES FOR PATIENT ON ORAL ANTICOAGULANT THERAPY Prevention of venous thromboembolism INR 2.0 to 3.0 In patients with heart disease: Atrial fibrillation INR 2.0 to 3.0 Valvular heart disease INR 2.0 to 3.0 Tissue heart valves INR 2.0 to 3.0 Mechanical prosthetic valves INR 2.5 to 3.5 Prevention of recurrent MD INR 2.5 to 3.5 us Rudy Desai MD LAB BLOOD ORDERABLES Final Re sult [facility] [address] [place] [address] * (ABNORMAL) CBC w/diff (11/23/2024 12:36 AM EDT) WBC Count 12.23(H) 3.70 - 10.30 10*3/uL LAB HEMATOLOGY METHOD 11/23/2024 12:51 AM EDT [facility] RBC Count 4.08 3.90 - 5.20 10*6/uL LAB HEMATOLOGY METHOD 11/23/2024 12:51 AM EDT [facility] HGB 13.0 11.2 - 15.7 g/dL LAB HEMATOLOGY METHOD 11/23/2024 12:51 AM EDT [facility] HCT 37.0 34.0 - 45.0 % LAB HEMATOLOGY METHOD 11/23/2024 12:51 AM EDT [facility] Platelet Count 242 155 - 369 10*3/uL LAB HEMATOLOGY METHOD 11/23/2024 12:51 AM EDT [facility] MCV 91 79 - 98 fL LAB HEMATOLOGY METHOD 11/23/2024 12:51 AM EDT [facility] MCH 31.9 26.0 - 32.0 pg LAB HEMATOLOGY METHOD 11/23/2024 12:51 AM EDT [facility] MCHC 35.1 30.7 - 35.5 g/dL LAB HEMATOLOGY METHOD 11/23/2024 12:51 AM EDT [facility] RDW 12.3 11.5 - 14.5 % LAB HEMATOLOGY METHOD 11/23/2024 12:51 AM EDT [facility] MPV 11.0 8.8 - 12.5 fL LAB HEMATOLOGY METHOD 11/23/2024 12:51 AM EDT [facility] nRBC 0.0 <=0.0 per 100 WBCs LAB HEMATOLOGY METHOD 11/23/2024 12:51 AM EDT [facility] Differential Type Automated LAB HEMATOLOGY METHOD 11/23/2024 12:51 AM EDT [facility] Neutrophils % 61 % LAB HEMATOLOGY METHOD 11/23/2024 12:51 AM EDT [facility] Lymphocytes % 32 % LAB HEMATOLOGY METHOD 11/23/2024 12:51 AM EDT [facility] Monocytes % 6 % LAB HEMATOLOGY METHOD 11/23/2024 12:51 AM EDT [facility] Eosinophils % 1 % LAB HEMATOLOGY METHOD 11/23/2024 12:51 AM EDT [facility] Basophils % 0 % LAB HEMATOLOGY METHOD 11/23/2024 12:51 AM EDT [facility] Immature Granulocytes % 0 % LAB HEMATOLOGY METHOD 11/23/2024 12:51 AM EDT [facility] Neutrophils Absolute 7.44(H) 1.60 - 6.10 10*3/uL LAB HEMATOLOGY METHOD 11/23/2024 12:51 AM EDT [facility] Lymphocytes Absolute 3.95(H) 1.20 - 3.90 10*3/uL LAB HEMATOLOGY METHOD 11/23/2024 12:51 AM EDT [facility] Monocytes Absolute 0.68 0.30 - 0.90 10*3/uL LAB HEMATOLOGY METHOD 11/23/2024 12:51 AM EDT [facility] Eosinophils Absolute 0.08 0.00 - 0.50 10*3/uL LAB HEMATOLOGY METHOD 11/23/2024 12:51 AM EDT [facility] Basophils Absolute 0.04 0.00 - 0.10 10*3/uL LAB HEMATOLOGY METHOD 11/23/2024 12:51 AM EDT [facility] Immature Granulocytes Absolute 0.04 0.00 - 0.06 10*3/uL LAB HEMATOLOGY METHOD 11/23/2024 12:51 AM EDT [facility] Blood Venous blood specimen / Unknown Venipuncture / Unknown 11/23/2024 12:36 AM EDT 11/23/2024 12:45 AM EDT [facility] - 11/23/2024 12:51 AM EDT Therapeutic decision making should be based on absolute values, rather than percentages. us Rudy Desai MD LAB BLOOD ORDERABLES Final Re sult [facility] [address] [place] [address] documented in this encounter Visit Diagnoses Diagnosis Abdominal pain, generalized- Primary Abdominal pain, generalized documented in this encounter Admitting Diagnoses Diagnosis Abdominal pain, generalized documented in this encounter Administered Medications Inactive Administered Medications - up to 3 most recent administrations Medication Order MAR Action Action Date Dose Rate Site acetaminophen (Tylenol) tablet 650 mg 650 mg, Oral, Every 6 hours PRN, Starting on Fri11/24/24 at 1235, Until Fri11/26/24 at 1702, Routine, mild pain Given 11/26/2024 9:13 AM EDT 650 mg Given 11/25/2024 9:35 PM EDT 650 mg Given 11/24/2024 2:38 PM EDT 650 mg atorvastatin (Lipitor) tablet 40 mg 40 mg, Oral, Nightly, First dose on Fri11/23/24 at 2100, Until Discontinued, Routine Given 11/25/2024 8:07 PM EDT 40 mg Given 11/24/2024 8:09 PM EDT 40 mg Given 11/23/2024 8:37 PM EDT 40 mg desvenlafaxine (Pristiq) 24 hr tablet 50 mg 50 mg, Oral, Daily, First dose on Fri11/23/24 at 1435, Until Discontinued, Routine Given 11/26/2024 9:07 AM EDT 50 mg Given 11/25/2024 8:15 AM EDT 50 mg Given 11/24/2024 8:43 AM EDT 50 mg diazePAM (Valium) tablet 5 mg 5 mg, Oral, Nightly, First dose on Fri11/23/24 at 2100, Until Discontinued, STAT Given 11/23/2024 8:37 PM EDT 5 mg diazePAM (Valium) tablet 5 mg 5 mg, Oral, Nightly PRN, Starting on Fri11/24/24 at 1240, Until Fri11/26/24 at 1702, STAT, anxiety Given 11/25/2024 8:07 PM EDT 5 mg divalproex (Depakote ER) 24 hr tablet 500 mg 500 mg, Oral, Nightly, First dose on Fri11/23/24 at 2100, Until Discontinued, Routine Given 11/25/2024 8:07 PM EDT 500 mg Given 11/24/2024 8:09 PM EDT 500 mg Given 11/23/2024 8:37 PM EDT 500 mg HYDROcodone-acetaminophen ([place]ureka) 5-325 MG per tablet 5 mg of hydrocodone 5 mg of hydrocodone, Oral, Every 4 hours PRN, Starting on Fri11/23/24 at 1430, Until Fri11/24/24 at 1241, STAT, severe pain Given 11/24/2024 8:48 AM EDT 5 mg of hydrocodone Given 11/24/2024 4:08 AM EDT 5 mg of hydrocodone Given 11/23/2024 10:42 PM EDT 5 mg of hydrocodone HYDROmorphone (Dilaudid) injection 0.5 mg 0.5 mg, Intravenous, Once, 1 dose, On Fri11/23/24 at 0040, Routine Given 11/23/2024 1:12 AM EDT 0.5 mg HYDROmorphone (Dilaudid) injection 0.5 mg 0.5 mg, Intravenous, Once, 1 dose, On Fri11/23/24 at 0245, Routine Given 11/23/2024 2:43 AM EDT 0.5 mg HYDROmorphone (Dilaudid) injection 0.5 mg 0.5 mg, Intravenous, Once, 1 dose, On Fri11/23/24 at 0455, Routine Given 11/23/2024 4:55 AM EDT 0.5 mg HYDROmorphone (Dilaudid) injection 0.5 mg 0.5 mg, Intravenous, Once, 1 dose, On Fri11/23/24 at 0955, Routine Given 11/23/2024 9:58 AM EDT 0.5 mg HYDROmorphone (Dilaudid) injection 1 mg 1 mg, Intravenous, Once, 1 dose, On Fri11/23/24 at 0620, Routine Given 11/23/2024 6:21 AM EDT 1 mg HYDROmorphone (Dilaudid) injection 1 mg 1 mg, Intravenous, Once, 1 dose, On Fri11/23/24 at 1255, Routine Given 11/23/2024 12:57 PM EDT 1 mg iohexol (OMNIPaque) 300 MG/ML injection 100 mL 100 mL, Intravenous, Once in imaging, 1 dose, Starting on Fri11/23/24 at 0446, Until Fri11/23/24 at 0436, Routine, Imaging Protocol Orders Given 11/23/2024 4:36 AM EDT 100 mL ketorolac (Toradol) injection 15 mg 15 mg, Intravenous, Once, 1 dose, On Fri11/23/24 at 1955, Routine Given 11/23/2024 8:38 PM EDT 15 mg lactated Ringer's bolus 1,000 mL 1,000 mL, Intravenous, Once, 1 dose, On Fri11/23/24 at 1255, Administer over 2 Hours, Routine New Bag 11/23/2024 12:57 PM EDT 1,000 mL 500 mL/hr lactated Ringer's infusion 1,000 mL 1,000 mL, Intravenous, Once, 1 dose, On Fri11/23/24 at 0040, STAT New Bag 11/23/2024 1:12 AM EDT 1,000 mL lactated Ringer's infusion 1,000 mL 1,000 mL, Intravenous, Once, 1 dose, On Fri11/23/24 at 1955, STAT New Bag 11/23/2024 8:37 PM EDT 1,000 mL lactated Ringer's infusion 125 mL/hr, Intravenous, Once, 1 dose, On Fri11/24/24 at 1045, STAT New Bag 11/24/2024 11:20 AM EDT 125 mL/hr 125 mL/hr ondansetron (Zofran) 4 MG/5ML solution 4 mg 4 mg, Oral, Every 6 hours PRN, Starting on Fri11/24/24 at 1236, Until Fri11/26/24 at 1702, Routine, nausea, vomiting ondansetron (Zofran) injection 4 mg 4 mg, Intravenous, Once, 1 dose, On Fri11/23/24 at 0040, STAT Given 11/23/2024 1:12 AM EDT 4 mg ondansetron (Zofran) injection 4 mg 4 mg, Intravenous, Every 6 hours PRN, Starting on Fri11/23/24 at 1431, Until Fri11/24/24 at 1241, STAT, vomiting, nausea Given 11/24/2024 4:08 AM EDT 4 mg Given 11/23/2024 8:37 PM EDT 4 mg ondansetron (Zofran) injection 4 mg 4 mg, Intravenous, Every 6 hours PRN, Starting on Fri11/24/24 at 1236, Until Fri11/26/24 at 1702, Routine, vomiting, nausea ondansetron ODT (Zofran-ODT) disintegrating tablet 4 mg 4 mg, Oral, Every 6 hours PRN, Starting on Fri11/24/24 at 1236, Until Fri11/26/24 at 1702, Routine, nausea, vomiting oxyCODONE (Roxicodone) immediate release tablet 5 mg 5 mg, Oral, Every 6 hours PRN, Starting on Fri11/24/24 at 1235, Until Fri11/26/24 at 1702, Routine, severe pain Given 11/26/2024 10:22 AM EDT 5 mg Given 11/25/2024 9:35 PM EDT 5 mg Given 11/25/2024 3:00 PM EDT 5 mg polyethylene glycol (Miralax) packet 17 g 17 g, Oral, Daily, First dose on Fri11/26/24 at 1145, Until Discontinued, Routine Given 11/26/2024 11:10 AM EDT 17 g QUEtiapine (SEROquel) tablet 50 mg 50 mg, Oral, Nightly PRN, Starting on Fri11/24/24 at 1239, Until Fri11/26/24 at 1702, Routine, For sleep/mood Given 11/25/2024 9:35 PM EDT 50 mg senna (Senokot) tablet 8.6 mg 8.6 mg, Oral, Nightly, First dose on Fri11/26/24 at 2100, Until Discontinued, Routine simethicone (Mylicon) chewable tablet 80 mg 80 mg, Oral, Every 6 hours PRN, Starting on Fri11/25/24 at 1056, Until Fri11/26/24 at 1702, Routine, flatulence sodium chloride 0.9 % flush 10 mL 10 mL, Intravenous, Every 12 hours, First dose on Fri11/23/24 at 1435, Until Discontinued, Routine Given 11/24/2024 3:40 AM EDT 10 mL Given 11/23/2024 2:49 PM EDT 10 mL sodium chloride 0.9 % flush 10 mL 10 mL, Intravenous, Every 12 hours, First dose on Fri11/24/24 at 1245, Until Discontinued, Routine Given 11/26/2024 11:52 AM EDT 10 mL Given 11/25/2024 12:29 PM EDT 10 mL Given 11/24/2024 12:42 PM EDT 10 mL sodium chloride 0.9 % flush 10 mL 10 mL, Intravenous, As needed, Starting on Fri11/24/24 at 1231, Until Fri11/26/24 at 1702, Routine, line care tamsulosin (Flomax) 24 hr capsule 0.4 mg 0.4 mg, Oral, Daily with dinner, First dose on Fri11/23/24 at 1955, Until Discontinued, Routine Given 11/25/2024 5:59 PM EDT 0.4 mg Given 11/24/2024 6:22 PM EDT 0.4 mg Given 11/23/2024 8:37 PM EDT 0.4 mg documented in this encounter Active and Recently Administered Medications Times are shown in EDT. Scheduled Medication Order 11/24/2024 11/25/2024 11/26/2024 atorvastatin (Lipitor) tablet 40 mg 40 mg, Oral, Nightly, First dose on Fri11/23/24 at 2100, Until Discontinued, Routine 2008 (Given - Provider: Zita Meyers RN) 2006 (Given - Provider: Reagan Whitehead, TAVON) desvenlafaxine (Pristiq) 24 hr tablet 50 mg 50 mg, Oral, Daily, First dose on Fri11/23/24 at 1435, Until Discontinued, Routine 0843 (Given - Provider: Juju Munguia RN) 0815 (Given - Provider: Reena Saha RN) 0907 (Given - Provider: Karlene Mcgee) divalproex (Depakote ER) 24 hr tablet 500 mg 500 mg, Oral, Nightly, First dose on Fri11/23/24 at 2100, Until Discontinued, Routine 2008 (Given - Provider: Zita Meyers RN) 2006 (Given - Provider: Reagan Whitehead, TAVON) lactated Ringer's infusion (COMPLETED) 125 mL/hr, Intravenous, Once, 1 dose, On Fri11/24/24 at 1045, STAT 1120 (New Bag - Provider: Juju Munguia RN) polyethylene glycol (Miralax) packet 17 g 17 g, Oral, Daily, First dose on Fri11/26/24 at 1145, Until Discontinued, Routine 1110 (Given - Provider: Karlene Mcgee) senna (Senokot) tablet 8.6 mg 8.6 mg, Oral, Nightly, First dose on Fri11/26/24 at 2100, Until Discontinued, Routine sodium chloride 0.9 % flush 10 mL (CANCELED)(Linked Group 1) 10 mL, Intravenous, Every 12 hours, First dose on Fri11/23/24 at 1435, Until Discontinued, Routine 0340 (Given - Provider: Claudia Villatoro RN) sodium chloride 0.9 % flush 10 mL(Linked Group 2) 10 mL, Intravenous, Every 12 hours, First dose on Fri11/24/24 at 1245, Until Discontinued, Routine 1242 (Given - Provider: Juju Munguia RN) 0006 (Canceled Entry - Provider: Zita Meyers RN)1229 (Given - Provider: Reena Saha RN) 0057 (Canceled Entry - Provider: Reagan Whitehead RN)1152 (Given - Provider: Karlene Mcgee) tamsulosin (Flomax) 24 hr capsule 0.4 mg 0.4 mg, Oral, Daily with dinner, First dose on Fri11/23/24 at 1955, Until Discontinued, Routine 1822 (Given - Provider: Karlene Mcgee) 1759 (Given - Provider: Reena Saha, TAVON) PRN Medication Order 11/24/2024 11/25/2024 11/26/2024 acetaminophen (Tylenol) tablet 650 mg 650 mg, Oral, Every 6 hours PRN, Starting on Fri11/24/24 at 1235, Until Fri11/26/24 at 1702, Routine, mild pain 1438 (Given - Provider: Juju Munguia RN) 2135 (Given - Provider: Reagan Whitehead, TAVON) 0913 (Given - Provider: Karlene Mcgee) diazePAM (Valium) tablet 5 mg 5 mg, Oral, Nightly PRN, Starting on Fri11/24/24 at 1240, Until Fri11/26/24 at 1702, STAT, anxiety 2006 (Given - Provider: Reagan Whitehead, TAVON) HYDROcodone-acetaminophen ([place]ureka) 5-325 MG per tablet 5 mg of hydrocodone (CANCELED) 5 mg of hydrocodone, Oral, Every 4 hours PRN, Starting on Fri11/23/24 at 1430, Until Fri11/24/24 at 1241, STAT, severe pain 0408 (Given - Provider: Claudia Villatoro, TAVON)0848 (Given - Provider: Juju Munguia RN) ondansetron (Zofran) 4 MG/5ML solution 4 mg(Linked Group 3) 4 mg, Oral, Every 6 hours PRN, Starting on Fri11/24/24 at 1236, Until Fri11/26/24 at 1702, Routine, nausea, vomiting ondansetron (Zofran) injection 4 mg (CANCELED) 4 mg, Intravenous, Every 6 hours PRN, Starting on Fri11/23/24 at 1431, Until Fri11/24/24 at 1241, STAT, vomiting, nausea 0408 (Given - Provider: Claudia Villatoro RN) ondansetron (Zofran) injection 4 mg(Linked Group 3) 4 mg, Intravenous, Every 6 hours PRN, Starting on Fri11/24/24 at 1236, Until Fri11/26/24 at 1702, Routine, vomiting, nausea ondansetron ODT (Zofran-ODT) disintegrating tablet 4 mg(Linked Group 3) 4 mg, Oral, Every 6 hours PRN, Starting on Fri11/24/24 at 1236, Until Fri11/26/24 at 1702, Routine, nausea, vomiting oxyCODONE (Roxicodone) immediate release tablet 5 mg 5 mg, Oral, Every 6 hours PRN, Starting on Fri11/24/24 at 1235, Until Fri11/26/24 at 1702, Routine, severe pain 1438 (Given - Provider: Juju Munguia RN)2109 (Given - Provider: Zita Meyers RN) 0312 (Given - Provider: Zita Meyers, TAVON)0919 (Given - Provider: Reena Saha, TAVON)1500 (Given - Provider: Reena Saha RN)2135 (Given - Provider: Reagan Whitehead, TAVON) 1022 (Given - Provider: Karlene Mcgee) QUEtiapine (SEROquel) tablet 50 mg 50 mg, Oral, Nightly PRN, Starting on Fri11/24/24 at 1239, Until Fri11/26/24 at 1702, Routine, For sleep/mood 2135 (Given - Provider: Reagan Whitehead, TAVON) simethicone (Mylicon) chewable tablet 80 mg 80 mg, Oral, Every 6 hours PRN, Starting on Fri11/25/24 at 1056, Until Fri11/26/24 at 1702, Routine, flatulence sodium chloride 0.9 % flush 10 mL(Linked Group 2) 10 mL, Intravenous, As needed, Starting on Fri11/24/24 at 1231, Until Fri11/26/24 at 1702, Routine, line care Linked Groups Order Group 1: Insert peripheral IV (CANCELED) Once, On Fri11/23/24 at 1431, For 1 occurrence And Saline lock IV (CANCELED) Once, On Fri11/23/24 at 1431, For 1 occurrence And sodium chloride 0.9 % flush 10 mL (CANCELED)Jump to med 10 mL, Intravenous, Every 12 hours, First dose on Fri11/23/24 at 1435, Until Discontinued, Routine And sodium chloride 0.9 % flush 10 mL (CANCELED) 10 mL, Intravenous, As needed, Starting on Fri11/23/24 at 1430, Until Fri11/24/24 at 1241, Routine, line care Group 2: Insert peripheral IV (COMPLETED) Once, On Fri11/24/24 at 1232, For 1 occurrence And Saline lock IV (COMPLETED) Once, On Fri11/24/24 at 1232, For 1 occurrence And sodium chloride 0.9 % flush 10 mLJump to med 10 mL, Intravenous, Every 12 hours, First dose on Fri11/24/24 at 1245, Until Discontinued, Routine And sodium chloride 0.9 % flush 10 mLJump to med 10 mL, Intravenous, As needed, Starting on Fri11/24/24 at 1231, Until Fri11/26/24 at 1702, Routine, line care Group 3: ondansetron ODT (Zofran-ODT) disintegrating tablet 4 mgJump to med 4 mg, Oral, Every 6 hours PRN, Starting on Fri11/24/24 at 1236, Until Fri11/26/24 at 1702, Routine, nausea, vomiting Or ondansetron (Zofran) injection 4 mgJump to med 4 mg, Intravenous, Every 6 hours PRN, Starting on Fri11/24/24 at 1236, Until Fri11/26/24 at 1702, Routine, vomiting, nausea Or ondansetron (Zofran) 4 MG/5ML solution 4 mgJump to med 4 mg, Oral, Every 6 hours PRN, Starting on Fri11/24/24 at 1236, Until Fri11/26/24 at 1702, Routine, nausea, vomiting documented in this encounter Additional Health Concerns Infection Onset Date Last Indicated Resolved Time Gastrointestinal Rule-Out 11/23/2024 11/23/2024 11:11 PM EDT C. difficile Rule-Out 11/24/2024 11/23/20242024 3:18 PM EDT Assessment Noted Time A Body Mass Index follow-up plan has been documented for the patient 11/26/2024 2:27 PM EDT documented as of this encounter Care Teams Sheep Rancher Relationship Specialty Start Date End Date Omar Hess MD [address] [place] [address] PCP - General 11/10/20 11/24/24 Mala Cohen APRN [address] [place] [address] PCP - General 11/25/24 documented as of this encounter
--- OUTSIDE RECORDS SUMMARY | 2024-12-06 15:25 | XMS_ITS | Encounter Summary ---
Author Organization [employer] Address [address] [place] [address] Care Team Providers Care Media Production Manager Name Role Phone Unavailable Primary Care Provider Unavailabl e Encounter Details Date Type Department Care Team (Late st Contact Info) Description 04/19/2020 Transcribed Document [facility] [place] [address] [place] [address] ProviderEder MD [address] [place] [address] Social History Tobacco Use Types Packs/Day Years Used Date Smoking Tobacco: Never Assessed Comments Unknown Sex and Gender Information Value Date Recorded Sex Assigned at Female 12/27/2021 4:26 PM CDT Legal Sex Female 5:19 PM CDT Gender Identity Female 12/27/2021 4:26 PM CDT Sexual Orientation Not on file documented as of this encounter Miscellaneous Notes * Cerner Conversion Note - Historical ProviderMD - 04/19/2020 12:40 PM CDT Stroke/Warfarin Instructions Entered On: 04/19/2020 12:40 EDT Performed On: 04/19/2020 12:40 EDT by Jeanne Pryor RN Stroke/Warfarin Instructions Stroke/TIA Discharge Ins : Open Warfarin Discharge Ins : N/A Jeanne Pryor RN - 04/19/2020 12:40 EDT Stroke/TIA Discharge Instructions Stroke/TIA Signs/Symptoms to Report Immediately : Sudden onset difficulty speaking, Sudden onset difficulty understanding speech, Sudden onset change in vision, Sudden onset weakness particulary on one side of the body, Sudden onset numbness/tingling, Sudden severe headache, Sudden dizziness or trouble with gait, Call : EMS activation is crucial My LDL Level: : LDL Level No qualifying data available. Jeanne Pryor RN - 04/19/2020 12:40 EDT documented in this encounter Plan of Treatment Not on file documented as of this encounter Visit Diagnoses Not on filedocumented in this encounter
--- OUTSIDE RECORDS SUMMARY | 2024-12-06 15:25 | XMS_ITS | Encounter Summary ---
Author Organization [employer] Address [address] [place] [address] Care Team Providers Care Field Operations Technician Name Role Phone Unavailable Primary Care Provider Unavailabl e Encounter Details Date Type Department Care Team (Late st Contact Info) Description 04/18/2020 Transcribed Document [facility] [place] Family Medicine [address] [place] [address] ProviderEder MD [address] [place] [address] Social History Tobacco Use Types [...] Cerner Conversion Note - Historical ProviderMD - 04/18/2020 12:41 PM CDT Patient: VANE RAYA Age: 44 years Sex: Female : 1975 Associated Diagnoses: None Author: HANANE WOLFE MD-MANOJ Subjective No clinical event reported. However, there was one recorded event where the patient became unresponsive. ROS: No complaints. Health Status Allergies: Allergic Reactions (Selected) Severity Not Documented Acetaminophen-codeine- No reactions were documented. Acetaminophen-traMADol- No reactions were documented. Ibuprofen- No reactions were documented. Ibuprofen IB- No reactions were documented. Latex- Rash. Magnesium sulfate- Breathiness and lungs filled with fluid. Nitrofurantoin- No reactions were documented. Percocet- No reactions were documented. PROzac- Hallucinates. Terbutaline- No reactions were documented. TraMADol- No reactions were documented. TraZODone- No reactions were documented. Uncoded Allergy (See Comment)- Dental cases stopped breathing and breathine. Nonallergic Reactions (Selected) Severity Not Documented FluvoxaMINE- Hallucinates. Loratadine- Makes me wired,mcbride., Allergies (8) Active Reaction fluvoxaMINE hallucinates Ibuprofen IB None Documented Latex rash loratadine makes me wired,MCBRIDE magnesium sulfate lungs filled with fluid Percocet None Documented PROzac hallucinates Uncoded Allergy (See Comment) dental cases stopped breathing Current medications: (Selected) Inpatient Medications Ordered BioFreeze: 1 Application, Topical, TID, PRN: Pain (Moderate 4-6) LORazepam: 2 mg, IV Push, Q8H, PRN: Seizures [place] 7.5 mg-325 mg oral tablet: 1 Tab, Oral, Q4H, PRN: Pain (Moderate 4-6) Zofran: 4 mg, IV Push, Q6H, PRN: Nausea/Vomiting albuterol 5 mg/mL (0.5%) inhalation solution: 2.5 mg, 0.5 mL, Nebulized Inhalation, Q6H, PRN: Wheezing desvenlafaxine: 50 mg, Oral, At Bedtime Pending Complete influenza virus vaccine, inactivated: 0.5 mL, IntraMuscular, [id number] Documented Medications Documented Biofreeze: 1 Application, Topical, TID, PRN: Pain (Moderate 4-6), 0 Refill(s) Pristiq 50 mg oral tablet, extended release: 1 Tab, Oral, Daily, 0 Refill(s) acetaminophen-HYDROcodone 325 mg-7.5 mg oral tablet: 1 Tab, Oral, TID, PRN: for pain, 0 Refill(s) albuterol 2.5 mg/3 mL (0.083%) inhalation solution: 3 mL, Inhalation, Q6H, PRN: as needed for wheezing, 0 Refill(s) albuterol CFC free 90 mcg/inh inhalation aerosol with adapter: 2 Puff, Inhalation, QID, PRN: for wheezing, 17 Gram, 0 Refill(s) diazePAM 10 mg oral tablet: 1 Tab, Oral, At Bedtime, 0 Refill(s) divalproex sodium 250 mg oral delayed release tablet: 2 Tab, Oral, At Bedtime, 0 Refill(s), Home Medications (7) Active acetaminophen-HYDROcodone 325 mg-7.5 mg oral tablet 1 Tab, PRN, Oral, TID albuterol 2.5 mg/3 mL (0.083%) inhalation solution 2.5 mg = 3 mL, PRN, Inhalation, Q6H albuterol CFC free 90 mcg/inh inhalation aerosol with adapter 2 Puff, PRN, Inhalation, QID Biofreeze 1 Application, PRN, Topical, TID diazePAM 10 mg oral tablet 10 mg = 1 Tab, Oral, At Bedtime divalproex sodium 250 mg oral delayed release tablet 500 mg = 2 Tab, Oral, At Bedtime Pristiq 50 mg oral tablet, extended release 50 mg = 1 Tab, Oral, Daily , Medications (6) Active Scheduled: (1) desvenlafaxine ER 50 mg tab 50 mg 1 Tab, Oral, At Bedtime Continuous: (0) PRN: (5) acetaminophen/HYDROcodone 325/7.5 mg tab 1 Tab, Oral, Q4H albuterol conc 2.5 mg/0.5 mL inh 2.5 mg 0.5 mL, Nebulized Inhalation, Q6H BioFreeze 1 Application, Topical, TID LORazepam 2 mg/mL inj 2 mg 1 mL, IV Push, Q8H ondansetron 4 mg/2 mL inj 4 mg 2 mL, IV Push, Q6H Problem list: Medical Allergic rhinitis / SNOMED CT 214056268 / Confirmed horse shoe shaped kidney / Confirmed Fasting hypoglycemia / SNOMED CT 56535598 / Confirmed Wears eyeglasses / SNOMED CT 219268461 / Confirmed Asthma / SNOMED CT 505280388 / Confirmed H/O bronchitis / SNOMED CT 734311072 / Confirmed H/O: pneumonia / SNOMED CT 609575584 / Confirmed Hemorrhoids / SNOMED CT 234160244 / Confirmed Renal calculus / SNOMED CT 174006742 / Confirmed Urinary tract infection / SNOMED CT 327448069 / Confirmed Arthritis / SNOMED CT 1809671 / Confirmed Back pain / SNOMED CT 095898068 / Confirmed Restless legs syndrome / SNOMED CT 37473689 / Confirmed Cervical disc disease with myelopathy / SNOMED CT 635078501 / Confirmed Migraine / SNOMED CT 17323599 / Confirmed Concussion / SNOMED CT 668101918 / Confirmed Acute anxiety / SNOMED CT 17774810 / Confirmed History of panic attacks / SNOMED CT 331686815 / Confirmed 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 PTSD / Confirmed Falls frequently / SNOMED CT 375393411 / Confirmed OCD / Confirmed Suicide risk / IMO 06955 / Confirmed At risk for sleep apnea / IMO 77367655 / Confirmed Suicide risk / IMO 76359 / Confirmed, Active Problems (25) Acute anxiety Allergic rhinitis Anxious depression Arthritis Asthma At risk for sleep apnea Back pain Cervical disc disease with myelopathy Concussion Falls frequently Fasting hypoglycemia H/O bronchitis H/O: pneumonia Hemorrhoids History of panic attacks horse shoe shaped kidney Migraine OCD PTSD Renal calculus Restless legs syndrome Suicide risk Suicide risk Urinary tract infection Wears eyeglasses Objective VS/Measurements Vital Signs/Vital Measures 04/18/2020 6:08 EDT Systolic Blood Pressure 115 mmHg Diastolic Blood Pressure 71 mmHg Mean Arterial Pressure (MAP)-BMDI 87 Temperature Source Oral Temperature Mode Fahrenheit Temperature, Fahrenheit 97.9 Deg F Clinical Temperature, C 36.6 Deg C Heart Rate Monitored 64 bpm Respiratory Rate 18 Breaths/Min Oxygen Saturation 98 % Oxygen Therapy Mode Room air 04/17/2020 19:17 EDT Systolic Blood Pressure 129 mmHg Diastolic Blood Pressure 83 mmHg Mean Arterial Pressure (MAP)-BMDI 97 Temperature, Fahrenheit 97.8 Deg F Clinical Temperature, C 36.6 Deg C Heart Rate Monitored 72 bpm 04/17/2020 11:38 EDT Systolic Blood Pressure 121 mmHg Diastolic Blood Pressure 60 mmHg Mean Arterial Pressure (MAP)-BMDI 89 Temperature Source Oral Temperature Mode Fahrenheit Temperature, Fahrenheit 98.1 Deg F Clinical Temperature, C 36.7 Deg C Heart Rate Monitored 70 bpm Respiratory Rate 16 Breaths/Min , Measurements from flowsheet : Measurements 04/17/2020 14:30 EDT Height Source Not Done: task clean up (Not Done) Height Entry Format Not Done: task clean up (Not Done) Weight Source Not Done: task clean up (Not Done) 04/17/2020 11:47 EDT Height Source Stated Height Entry Format [place] Height/Length, PASHTO (ft) 5 ft Height/Length PASHTO 3 Inch CLINICALHEIGHT 160.02 cm Type of Weight Measurement. [place] Weight, est lb 127 lb Weight, est oz 6 oz Estimated Clinical Dosing Weight 57.9 kg [place] Body Weight 52 kg Weight Source Stated , Vitals Signs (last 24 hrs) Last Charted Minimum Maximum Temp 97.9 (APR 18 06:08) 97.9 (APR 18 06:08) 97.8 (MAR 19 19:17) Mon HR 64 (APR 18 06:08) 64 (APR 18 06:08) 72 (MAR 19 19:17) Resp Rate 18 (APR 18 06:08) 18 (APR 18 06:08) 18 (APR 18 06:08) SBP 115 (APR 18 06:08) 115 (APR 18 06:08) 129 (OCT 19:17) DBP 71 (APR 18 06:08) 71 (APR 18 06:08) 83 (OCT 19 19:17) MAP 87 (APR 18 06:08) 87 (OCT 06:08) 97 (MAR 19 19:17) SpO2 98 (APR 18 06:08) 98 (APR 18 06:08) 98 (APR 18 06:08) General: Alert and oriented. Eye: Pupils are equal, round and reactive to light. Neurologic: Normal motor function, No focal deficits, Cranial Nerves II-XII are grossly intact. Results Review Continuous EEG: left temporal slowing. EEG accompanying recorded event: no change from baseline. Impression and Plan Discussed findings with patient. 1. Continue video EEG monitoring. 2. Encouraged increase in level of activity. documented in this encounter Plan of Treatment Not on file documented as of this encounter Visit Diagnoses Not on filedocumented in this encounter
--- OUTSIDE RECORDS SUMMARY | 2024-12-06 15:25 | XMS_ITS | Referral Summary ---
Author Organization [employer] Address [address] [place] [address] Care Team Providers Care Group Home Worker Name Role Phone Unavailable Primary Care Provider Unavailabl e Social History Tobacco Use Types Packs/Day Years Used Date Smoking Tobacco: Never Assessed Comments Unknown Sex and Gender Information Value Date Recorded Sex Assigned at Female 12/27/2021 4:26 PM CDT Legal Sex Female 5:19 PM CDT Gender Identity Female 12/27/2021 4:26 PM CDT Sexual Orientation Not on file Plan of Treatment Not on file
--- OUTSIDE RECORDS SUMMARY | 2024-12-06 15:25 | XMS_ITS | Encounter Summary ---
Author Organization [employer] Address [address] [place] [address] Care Team Providers Care Sales Training Manager Name Role Phone Unavailable Primary Care Provider Unavailabl e Encounter Details Date Type Department Care Team (Late st Contact Info) Description 04/18/2020 Transcribed Document [facility] [place] [address] [place] [address] ProviderEder MD [address], [place] [id number] Social History Tobacco Use Types Packs/Day Years [...] Conversion Note - Historical ProviderMD - 04/18/2020 4:22 AM CDT Spiritual Care Short Form Entered On: 04/18/2020 4:24 EDT Performed On: 04/18/2020 4:22 EDT by MAYURI ESCOTO Chaplain General Information, Spiritual Care Spiritual Care Referred by : Lead Database Developer initiated Reason for Visit : Initial Ministry Provided to : Patient Intervention/Comment/Summary Points : Door closed, RN w/ pt. Chap. consulted w/ RN upon her exiting room. anxiety is a concern for prayer Chap. prayed accordingly o/s pt. room. MAYURI ESCOTO Chaplain - 04/18/2020 4:22 EDT Electronically signed by Jimmy Feliciano Conversion Civil Engineering Draftsperson Cerner at 10/17/2022 5:57 PM CDT documented in this encounter Plan of Treatment Not on file documented as of this encounter Visit Diagnoses Not on filedocumented in this encounter
--- OUTSIDE RECORDS SUMMARY | 2024-12-06 15:25 | XMS_ITS | Encounter Summary ---
Author Organization [facility] Address [address] [place] [address] Care Team Providers Care Trade Union Secretary Name Role Phone Bhumi Cohen APRN Primary Care Provider [phone] Junie Carrillo LPN Unavailable Unavailab le Reason for Visit * Reason Comments TCM Call Encounter Details Date Type Department Care Team (Late st Contact Info) Description 12/01/2024 Patient Outreach [facility] [address], [address] [place] [address] Junie Carrillo LPN TCM Call Social History Tobacco Use Types Packs/Day Years [...] any time in the past 12 m [facility], were you homeless or living in a long-term (including now)? No 11/25/2024 Utilities Answer Date Recorded In the past 12 months has th e [employer], gas, oil, or water company threatened to shut off services in your home? No 11/25/2024 Comments Unknown Sex and Gender Information Value Date Recorded Sex Assigned at Not on file Legal Sex Female 8:28 PM EDT Gender Identity Not on file Sexual Orientation Not on file documented as of this encounter Miscellaneous Notes * Progress Notes - Junie Carrillo LPN - 12/01/2024 2:09 PM EDT Admit Date: 11/23/2024 Discharge Date: 11/26/2024 Hospital Service: Internal Medicine Discharge Diagnosis: Abdominal pain 12/01/2024 TCM call # 3 Patient Reached: N Outcome: Attempted to contact patient for TCM call. No answer and recording stated the wireless customer you are calling is not available, please try again later. Action: N/A Medication changes: Per AVS Start: naloxone 4 mg/0.1 mL nasal spray Commonly known as: Narcan 1. Give 1 spray in nostril for no/slow breathing or cannot wake after opioid use 2. Call 911 3. Repeat in other nostril if symptoms continue oxyCODONE 5 MG immediate release tablet Commonly known as: Roxicodone Take 1 tablet by mouth every 6 hours as needed for severe pain polyethylene glycol 17 g packet Commonly known as: Miralax Take 17 g by mouth daily as needed (For constipation) senna 8.6 MG tablet Commonly known as: Senokot Take 1 tablet by mouth at night as needed for constipation. SRINIVASAN appointment: Patient needs appointment. Items to address at SRINIVASAN: Per discharge summary - Follow up with your PCP in 1-2 weeks for post admission follow up and routine labs - Discuss with PCP about referral for colonoscopy given symptoms and age - Discuss with PCP about referral for urology given horseshoe kidney and small stone if you developsymptoms or lab abnormalities documented in this encounter Plan of Treatment Not on file documented as of this encounter Visit Diagnoses Not on filedocumented in this encounter Additional Health Concerns Assessment Noted Time A Body Mass Index follow-up plan has been documented for the patient 11/26/2024 2:27 PM EDT documented as of this encounter Care Teams Trade Union Secretary Relationship Specialty Start Date End Date Bhumi Cohen APRN [address] [place] [address] PCP - General 11/25/24 Junie Carrillo LPN TCM Nurse 11/29/24 documented as of this encounter
--- OUTSIDE RECORDS SUMMARY | 2024-12-06 15:25 | XMS_ITS | Encounter Summary ---
Author Organization [employer] Address [address] [place] [address] Care Team Providers Care General Road Foreman Name Role Phone Unavailable Primary Care Provider Unavailabl e Encounter Details Date Type Department Care Team (Late st Contact Info) Description 04/19/2020 Transcribed Document [facility] [place] Family Medicine [address] [place] [address] ProviderEder MD [address] [place] [address] Social History Tobacco Use Types [...] Conversion Note - Historical ProviderMD - 04/19/2020 1:27 PM CDT Final Discharge Planning Entered On: 04/19/2020 13:28 EDT Performed On: 04/19/2020 13:27 EDT by ALESSIO MAXWELL, RN-Stripper Latex Final Discharge Planning Discharge Arrangements : Patient Post-Acute Information Patient Name: VANE RAYA Gender: Female : [birth year] Age: 44 Years No Post-Acute Placement(s) Listed No Post-Acute Service(s) Listed No [place] Referral(s) Listed Designation of Choice Signed : No Transportation Needs : Family/Friend Follow Up Appointment Scheduled : Yes Is Patient High/Moderate Readmission Risk? : No Patient/Family Notified of Plan : Yes Patient/Family Notified : patient Is Patient Ready for Discharge? : Yes Physician Notified Patient is Ready for Discharge? : Yes Discharge To Care Management : Home/Residential/Retirement or Self Care -01 ALESSIO MAXWELL, RN-Stripper [employer]x - 04/19/2020 13:27 EDT Final Narrative Note Final Narrative Note : Pt to discharge to home. No discharge needs noted. ALESSIO MAXWELL RN-Stripper [employer]x - 04/19/2020 13:27 EDT Electronically signed by [facility] Conversion Desk Officer Cerner at 10/17/2022 6:04 PM CDT documented in this encounter Plan of Treatment Not on file documented as of this encounter Visit Diagnoses Not on filedocumented in this encounter
--- OUTSIDE RECORDS SUMMARY | 2024-12-06 15:25 | XMS_ITS | Encounter Summary ---
Author Organization [employer] Address [address] [place] [address] Care Team Providers Care Salon Receptionist Name Role Phone Unavailable Primary Care Provider Unavailabl e Encounter Details Date Type Department Care Team (Late st Contact Info) Description 04/19/2020 Transcribed Document [facility] [place] [address] [place] [address] ProviderEder MD [address] [place] [address] Social History Tobacco Use Types Packs/Day Years Used Date Smoking Tobacco: Never Assessed Comments Unknown Sex and Gender Information Value Date Recorded Sex Assigned at Female 12/27/2021 4:26 PM CDT Legal Sex Female 5:19 PM CDT Gender Identity Female 12/27/2021 4:26 PM CDT Sexual Orientation Not on file documented as of this encounter Miscellaneous Notes * Cerner Conversion Note - Eder ProviderMD - 04/19/2020 2:07 PM CDT DATE OF SERVICE: 04/19/2020 REPORT TYPE: EEG REFERRING PHYSICIAN: Mamadou Campa MD REPORT TITLE: Video Electroencephalogram Report STUDY DURATION: 6 hours. HISTORY: This is a 44-year-old woman being evaluated for seizures. EEG VIDEO MONITORING METHODOLOGY: Time-locked EEG-video monitoring was performed using the 32-channel Manyeta monitoring system. The seizure detection computer was used for detection of ictal discharges (subclinical and clinical), interictal discharges, and to record ictal events that were documented by depression of the event button in the patient's room. Analyses of the monitoring data were performed using the following techniques: Review of the relevant EEG-video data. Review of events detected by the computer system in detail. Review of clinical seizures, with both detailed review of EEG and video and playback using multiple montages. A variety of referential and bipolar montages were used. CLINICAL AND EEG ANALYSIS: There was no event reported during the period of monitoring. TIME SAMPLES: The recording was reviewed. During wakefulness, 10 to 11 Hz activity is seen posteriorly. 4 to 5 Hz theta waves are intermittently noted at F7-T7, more commonly during drowsiness. Lower amplitude faster activity in the beta range is seen with a wider distribution. Sleep was recorded with the appearance of well-formed sleep spindles in both hemispheres. SPIKE DETECTION: The spike detection program was activated during the period of monitoring and revealed no abnormal paroxysmal activity. EEG DIAGNOSIS: This is an abnormal video EEG study because of intermittent slow waves noted at F7-T7. CLINICAL INTERPRETATION: The patient had no clinical event during the period of monitoring. Continuous EEG recordings showed no epileptiform abnormality. The study therefore does not provide evidence to support the diagnosis of epilepsy. EEG recordings showed intermittent slow waves in the left anterior temporal electrodes, suggestive of mild focal cerebral dysfunction in the left anterior temporal region. /[id number] MD BENJI Cabrera/AQ / TAF / MODL /[id number] documented in this encounter Plan of Treatment Not on file documented as of this encounter Visit Diagnoses Not on filedocumented in this encounter
--- OUTSIDE RECORDS SUMMARY | 2024-12-06 15:25 | XMS_ITS | Encounter Summary ---
Author Organization [employer] Address [address] [place] [address] Care Team Providers Care Developmental Therapist Name Role Phone Unavailable Primary Care Provider Unavailabl e Encounter Details Date Type Department Care Team (Late st Contact Info) Description 04/17/2020 Transcribed Document [facility] [place] [address] [place] [address] ProviderEder MD [address] [place] [address] Social History Tobacco Use Types [...] Cerner Conversion Note - Historical ProviderMD - 04/17/2020 12:05 PM CDT Nutrition Assessment Entered On: 04/18/2020 13:17 EDT Performed On: 04/18/2020 13:17 EDT by MANUEL BRODERICK RD, LD Nutrition Assessment Nutrition Assessment Reason : Automatic referral MANUEL BRODERICK RD, LD - 04/18/2020 13:17 EDT Nutrition Recommendations Dietitian Recommendations : 04/18: Rec'd consult for MST >2 (14-23# weight loss mine captain). SPoke with pt, reports good appetite and intake, really enjoying the food (100% x 3 meals). Pt reports decreased appetite mine captain d/t depression and inability to get to grocery store. Reports ~20# weight loss over the past 1 year but unsure of timeframe. (13% x 1 year not considered significant). Did not observe fat or muscle wasting. LBM 04/16. Current weight 127#. Will rescreen in 7-10 days, no nutrition dx at this time MANUEL BRODERICK RD, LD - 04/18/2020 14:33 EDT Electronically signed by Jimmy Feliciano Conversion Information Systems Security Specialist Cerner at 10/17/2022 6:04 PM CDT documented in this encounter Plan of Treatment Not on file documented as of this encounter Visit Diagnoses Not on filedocumented in this encounter
--- OUTSIDE RECORDS SUMMARY | 2024-12-06 15:25 | XMS_ITS | Encounter Summary ---
Author Organization [employer] Address [address] [place] [id number] Care Team Providers Care Cane Stripper Name Role Phone Unavailable Primary Care Provider Unavailabl e Encounter Details Date Type Department Care Team (Late st Contact Info) Description 04/17/2020 Transcribed Document [facility] [place] Family Medicine [facility] [place] [address] ProviderEder MD [address] [place] [address] Social History Tobacco Use Types Packs/Day Years Used Date Smoking Tobacco: Never Assessed Comments Unknown Sex and Gender Information Value Date Recorded Sex Assigned at Female 12/27/2021 4:26 PM CDT Legal Sex Female 5:19 PM CDT Gender Identity Female 12/27/2021 4:26 PM CDT Sexual Orientation Not on file documented as of this encounter Miscellaneous Notes * Cerner Conversion Note - Historical Provider, - 04/17/2020 11:47 AM CDT Admission History, Adult Entered On: 04/17/2020 12:05 EDT Performed On: 04/17/2020 11:47 EDT by Jeanne Pryor RN Advance Directive Patient has Advance Directive *Q : No, patient refuses Advance Directive information Jeanne Pryor RN - 04/17/2020 11:47 EDT Anesthesia/Transfusion History Family History of Anesthesia Reaction : No prior transfusion(s) Transfusion History : Prior anesthesia without reaction Family History of Anesthesia Reaction : None Jeanne Pryor RN - 04/17/2020 11:47 EDT Functional Assessment Living Situation : Home Patient Lives With : Alone Current Home Treatments : Nebulizer treatments Jeanne Pryor RN - 04/17/2020 11:47 EDT General Info Preferred Name : Loren Legal Guardian : No Want Family/Rep/Phys Notified of Admit : No Emergency Contact #1 : Tonia Hand Emergency Contact #1 Emergency Contact #1 Relationship : DAUGHTER Emergency Contact #2 : na Emergency Contact #2 Phone Number : na Emergency Contact #2 Relationship : na Primary Language : Burmese Preferred Communication Mode : Verbal Communication Barrier : None Mold Capper Helper Needed : No Jeanne Pryor RN - 04/17/2020 11:47 EDT Fall Risk Scales ABCs Fall Injury Risk Identification : None KRASUE Hx Falls Immediate/Within 3 Months : Yes Krause Secondary Diagnosis : Yes KRAUSE Use of Ambulatory Aid : None KRAUSE IV Therapy or IV Access : No Katie Gait/Transferring : Normal, bedrest, immobile Krause Mental Status : Oriented to own ability Krause Fall Risk Score : 40 KRAUSE Fall Scale Risk Level : 25-45 Medium Risk [place] Fall Interventions : Adequate lighting, Assistive devices within reach, Bed in low position, Call device within reach, Frequent orientation to call device, Frequent orientation to surroundings, Hourly comfort/safety rounds, Non-slip footwear, Personal items within reach, Reinforced to call for assistance before getting out of bed, Room free of clutter/spills, Upper side-rails up, Wheels locked, Wires/Cords secured Jeanne Pryor RN - 04/17/2020 11:47 EDT Health Histories Smoking Status : Never (less than 100 in lifetime; none in last 30 days) Smokeless Tobacco Status : Never Jeanne Pryor RN - 04/17/2020 11:47 EDT Social History (As Of: 04/17/2020 12:05:37 EDT) Tobacco: Use in Last 12 Months: Cigarettes. Smoking Status Current every day smoker. Years of Use: 23. Packs/Tins Daily: 1. Used Tobacco, but Quit No. Second Hand Smoke Exposure: Yes. Smoking Cessation Info Provided: Yes. (Last Updated: 10/17/2014 10:03:33 EDT by ANGELA WAN, TAVON) Alcohol: Alcohol Use History No. (Last Updated: 10/17/2014 10:03:38 EDT by ANGELA WAN, RN) Substance Abuse: Drug Use Hx: No. (Last Updated: 10/17/2014 10:03:45 EDT by ANGELA WAN, RN) Home/Environment: Lives with Alone. Home equipment: Respiratory treatments. (Last Updated: 04/17/2020 11:55:02 EDT by Jeanne Pryor RN) Employment/School: Unemployed (Last Updated: 10/17/2014 10:03:53 EDT by ANGELA WAN RN) Height and Weight, Clinical Dosing Height Source : Stated Height Entry Format : [place] Height, Feet : 5 ft(Converted to: 152 cm, 60 Inch) Height, Inches : 3 Inch(Converted to: 0 ft 3 Inch, 7.62 cm) Clinical Height : 160.02 cm Weight Source : Stated [place] Body Weight : 52 kg Jeanne Pryor RN - 04/17/2020 11:47 EDT Estimated Weight Type of Weight Measurement Est : [place] Weight, est lb : 127 lb(Converted to: 58 kg) Weight, est oz : 6 oz Estimated Clinical Dosing Weight : 57.9 kg Jeanne Pryor RN - 04/17/2020 11:47 EDT Infectious Disease History Has the patient ever been tested for COVID-19? : No, Patient stated Does patient have symptoms of COVID-19? : Yes COVID19 Screening : No Experiencing Infectious Disease Symptoms : No symptoms Physical contact outside [place] in the last 30 days : No Infectious Disease History : Chicken pox/Shingles, Influenza, Measles, Mumps Tuberculosis Symptoms : None Jeanne Pryor RN - 04/17/2020 11:47 EDT Influenza Vaccine Asmt, Adult Previous Vaccines from Immunization Schedule : No qualifying data available. Influenza Immunization, Current Season : No Inactivated Flu Vaccine Contraindications : No contraindications to inactivated influenza vaccine Transplant Workup/Recent Transplant : No Order for Influenza Vaccine : Order for influenza vaccine sent to pharmacy Jeanne Pryor RN - 04/17/2020 11:47 EDT Pneumococcal Vaccine Previous Vaccines from Immunization Schedule : No qualifying data available. Pneumonia Immunization Received : No Pneumococcal Risk Assessment < Age 65 : None Jeanne Pryor RN - 04/17/2020 11:47 EDT Nutrition History Adaptive Feeding Equipment : Regular Eating Poorly Due to Decreased Appetite : No Unplanned Weight Loss in Past 3-6 Months : Yes Unplanned Weight Loss Amount : 14-23 lbs/6.4-10.5 kg Malnutrition Screening Tool Total(mal) : 2 Malnutrition Screening Tool Risk Level : Patient at risk Jeanne Pryor RN - 04/17/2020 11:47 EDT [place] Suicide Severity Rating Scale (C-SSRS) CSSRS Past Month Wish to be : No CSSRS Past Month Suicidal Thoughts : No CSSRS Lifetime Suicide Behavior : Yes YES, was this within the past 3 months? : No Suicide Severity Rating Score : 3 Suicide Severity Rating : Moderate Jeanne Pryor RN - 04/17/2020 11:47 EDT Psychosocial History Do You Have a History of the Following? : Anxiety, Depression, Post Traumatic Stress Disorder, Other: Panic attacks Currently in Unsafe Situation : No Jeanne Pryor RN - 04/17/2020 11:47 EDT Sleep Apnea Risk Assmt Hx of Obstructive Sleep Apnea Diagnosis : No Snore Loudly : No Tired, Fatigued, or Sleepy During Day : Yes Observed Stopping Breathing During Sleep : Yes Have/Are Being Treated for Hypertension : No BMI Greater Than 35 kg/m2 : No Age over 50 Years Old : No Neck Circumference Greater Than 40 cm : No Gender Male : No STOP-BANG Sleep Apnea Risk Level Score : 2 Jeanne Pryor RN - 04/17/2020 11:47 EDT Valuables and Belongings Valuables and Belongings : Clothing, Personal devices, Personal items, Medications, No comfort items, No jewelry, No assistive devices, No respiratory devices Clothing : Common streetwear Clothing Disposition : With patient Personal Device Disposition : With patient Personal Devices : Glasses Personal Items : Cell phone, Wallet, Other: debit card, 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
--- OUTSIDE RECORDS SUMMARY | 2024-12-06 15:25 | XMS_ITS | Encounter Summary ---
Author Organization [employer] Address [address] [place] [id number] Care Team Providers Care Acquisition Analyst Name Role Phone Unavailable Primary Care Provider Unavailabl e Encounter Details Date Type Department Care Team (Late st Contact Info) Description 04/18/2020 Transcribed Document [facility] [place] Family Medicine [address] [place] [address] ProviderEder MD [address] [place] [address] Social History Tobacco Use Types [...] Cerner Conversion Note - Eder ProviderMD - 04/18/2020 8:54 AM CDT DATE OF SERVICE: 04/17/2020 REPORT TYPE: EEG REFERRING PHYSICIAN: Mamadou Campa MD REPORT TITLE: Video Electroencephalogram Report STUDY DURATION: One day. HISTORY: This is a 44-year-old woman, being evaluated for seizures. EEG VIDEO MONITORING METHODOLOGY: Time-locked EEG-video monitoring was performed using the 32-channel [employer] monitoring system. The seizure detection computer was [...] CLINICAL AND EEG ANALYSIS: There was no clinical event reported during the period of monitoring. However, there was one questionable event recorded. EVENT ONE: On 04/17/2020, at 23:46:45, the patient is lying in bed on her right side covered with bed sheets. She turns on her back at 23:47:00 and then sits up in bed. She leans against her right hand. She then leans forwards before lying on her back again in a reverse position. She does not respond to name calling or sensory stimulation as she turns in bed again, adjusting her position and lying on her right side. She adjusts covers on her at 23:48:18. She appears to have a slight rocking motion back and forth with her body at 23:49:01. These movements stop at 23:49:35. She then remains motionless, and is unresponsive to repeated sensory stimulation and name calling. At 23:50:43, she informs another person in the room that she is okay. She then sits up in bed before lying on her left side and adjusting covers. She sits up again at 23:54:04 and gets up from bed. She is briefly off camera view. She can be seen at 23:58:55 standing next to the bed before sitting. The family member asks the patient to lie down and she lies on her back, adjusting covers. Concomitant EEG showed no change from baseline background activity except for artifacts corresponding to the patient's movements. TIME SAMPLES: The recording was reviewed. During wakefulness, 10 to 11 Hz activity is seen posteriorly intermixed with lower amplitude fast activity in the beta range with a wider distribution. 4 to 5 Hz theta waves are noted intermittently at F7-T7. Slow waves are seen more commonly in both hemispheres during periods of drowsiness. During sleep, well-formed sleep spindles are seen in both hemispheres. SPIKE DETECTION: The spike detection program was activated during the period of monitoring and revealed no abnormal paroxysmal activity. EEG DIAGNOSIS: This is a mildly abnormal video EEG study because of: 1. Intermittent slow waves at F7-T7. 2. The EEG accompanying one questionable event showed no change from baseline background activity except for artifacts corresponding to the patient's movements. CLINICAL INTERPRETATION: There was no clinical event reported during the period of monitoring. There was one questionable event during which the patient appeared to be briefly unresponsive to family members, while shifting positions in bed with brief intermittent rocking motion of the body. Concomitant EEG showed no ictal change. The event recorded was therefore nonepileptic in origin. Continuous EEG recordings showed no electrographic ictal discharge or other epileptiform abnormality. The study therefore provides no evidence to support the diagnosis of epilepsy. EEG recordings showed intermittent slow waves in the left anterior temporal electrodes suggestive of mild focal cerebral dysfunction in the left anterior temporal region. /[id number] MD BENJI Cabrera/AQ / TAF / MODL /[id number] documented in this encounter Plan of Treatment Not on file documented as of this encounter Visit Diagnoses Not on filedocumented in this encounter
--- OUTSIDE RECORDS SUMMARY | 2024-12-06 15:25 | XMS_ITS | Encounter Summary ---
Author Organization Healthcare Address [address] [place] [address] Care Team Providers Care Civil Engineering Teacher Name Role Phone Omar Hess MD Primary Care Provider + [phone] Encounter Details Date Type Department Care Team (Latest Contact Info) Description 11/23/2024 Travel Social History Tobacco Use Types Packs/Day Years Used Date Smoking Tobacco: Every Day Alcohol Use Standard Drinks/Week Comments No 0 (1 standard drink = 0.6 oz pur e alcohol) Comments Unknown Sex and Gender Information Value Date Recorded Sex Assigned at Not on file Legal Sex Female 8:28 PM EDT Gender Identity Not on file Sexual Orientation Not on file documented as of this encounter Functional Status * Calculated C-SSRS Risk Score (Lifetime/Recent) Answer Date of Assessment Author No Risk Indicated 11/23/2024 1:18 AM EDT Omar Fung RN * Question Answer Date of Assessment Author 1. Wish to be (Past 1 Month) No 025 1:18 AM EDT Omar Fung RN 2. Non-Specific Active Suici nhung Thoughts (Past 1 Month) No 11/23/2024 1:18 AM EDT Alfred Fung RN 6. Suicidal Behavior (Lifetime) No 1:18 AM EDT Omar Fung RN documented as of this encounter Plan of Treatment Not on file documented as of this encounter Visit Diagnoses Not on filedocumented in this encounter Additional Health Concerns Infection Onset Date Last Indicated Resolved Time Gastrointestinal Rule-Out 11/23/2024 11/23/2024 11:11 PM EDT Assessment Noted Time A Body Mass Index follow-up plan has been documented for the patient 11/26/2024 2:27 PM EDT documented as of this encounter Care Teams Civil Engineering Teacher Relationship Specialty Start Date End Date Omar Hess MD [address] [place], [place] [address], [place] [address] PCP - General 11/10/20 11/24/24 documented as of this encounter
--- OUTSIDE RECORDS SUMMARY | 2024-12-06 15:25 | XMS_ITS | Encounter Summary ---
Author Organization [employer] Address [address] [place] [address] Care Team Providers Care Cutting Machine Operator Name Role Phone Unavailable Primary Care Provider Unavailabl e Encounter Details Date Type Department Care Team (Late st Contact Info) Description 04/19/2020 Transcribed Document [facility] Family Medicine [address] [place] [address] ProviderEder MD [address] [place] [address] Social History Tobacco Use Types [...] Conversion Note - Eder ProviderMD - 04/19/2020 12:41 PM CDT [facility] [place] [address] VANE RAYA :1975 Visit Time:04/17/2020 Your Visit Summary Your Care Team Admitting Physician - HANANE WOLFE MD-NEU Attending Physician - HANANE WOLFE MD-NEU Primary Care Physician - MAX, UNKNOWN Referring Physician - HANANE WOLFE MD-NEU Your Diagnosis Nonepileptic episode What to do next Instructions From Your Care Team Discharge Activity: No driving, Discharge Activity: Other (use Special Instructions) Diet: Discharge Diet: Regular diet as tolerated Follow-Up Appointments Follow Up with Hattie Diaz When Within 3 months Where: [address] [place] [address]- [facility] (1) Medications What How Much When Instructions Next Dose albuterol (albuterol 2.5 mg/ 3 mL (0.083%) inhalation solution) 3 Milliliter(s) Inhalation Every 6 Hours as needed for as needed for wheezing albuterol (albuterol CFC free 90 mcg/ inh inhalation aerosol with adapter) 2 Puff(s) Inhalation Four Times A Day as needed for for wheezing desvenlafaxine (Pristiq 50 mg oral tablet, extended release) 1 Tablet(s) Oral Every Day diazePAM (diazePAM 10 mg oral tablet) 1 Tablet(s) Oral At Bedtime menthol topical (Biofreeze) 1 Application(s) Topical Three Times A Day as needed for Pain (Moderate 4-6) acetaminophen-hydrocodone (acetaminophen-HYDROcodone 325 mg-7.5 mg oral tablet) 1 Tablet(s) Oral Three Times A Day as needed for for pain divalproex sodium (divalproex sodium 250 mg oral delayed release tablet) 2 Tablet(s) Oral At Bedtime Take your medications faithfully. Do NOT skip medication. Do NOT stop taking medications without the direction of a physician. Carry a list of your medications with you at all times, and take this medication list with you to your first follow up visit. Report any side effects. Avoid herbal remedies unless discussed with your physician. As part of your treatment plan, your physician may have prescribed a limited course of a controlled substance. This medication may be given to help people with moderate or severe pain or for other medical conditions, but there are risks involved with treatment. Common side effects may include nausea, constipation, drowsiness, sweating, itching, dry mouth, and rash. More serious side effects may include cognitive and motor impairment, like problems with thinking, concentrating, alertness, and movement (e.g. slowed reflexes), and driving and operating heavy machinery can be dangerous. It is important for you to talk to your physician if you have these side effects or questions. These controlled substances can produce physical dependence and be habit-forming if taken for an extended period of time, which means that the body has gotten used to them and may experience withdrawal symptoms if they are abruptly stopped. Withdrawal symptoms can include runny nose, sweating, goose bumps, diarrhea, abdominal cramping, rapid heartbeat, difficulty sleeping, and nervousness. Please dispose of unused and medications per your retail pharmacy guidance. Allergies Ibuprofen IB Latex (rash) PROzac (hallucinates) Percocet Uncoded Allergy (See Comment) (breathine, dental cases stopped breathing) acetaminophen-codeine acetaminophen-traMADol fluvoxaMINE (hallucinates) ibuprofen loratadine (makes me wired,MCBRIDE) magnesium sulfate (Breathiness, lungs filled with fluid) nitrofurantoin terbutaline traMADol traZODone Immunizations This Visit No Immunizations Found Stroke/TIA Instructions Stroke/TIA Signs/Symptoms to Report Immediately: Sudden onset difficulty speaking, Sudden onset difficulty understanding speech, Sudden onset change in vision, Sudden onset weakness particulary on one side of the body, Sudden onset numbness/tingling, Sudden severe headache, Sudden dizziness or trouble with gait, Call : EMS activation is crucial Mutually Agreed Upon Goals My LDL Level: My LDL Level: Education Materials Non-Epileptic Seizures, Adult A seizure can cause: ??? Involuntary movements, like falling or shaking. ??? Changes in awareness or consciousness. ??? Convulsions. These are episodes of uncontrollable, jerking movement caused by sudden, intense tightening (contraction) of the muscles. Epileptic seizures are caused by abnormal electrical activity in the brain. Non-epileptic seizures are different. They are not caused by abnormal electrical signals in your brain. These seizures may look like epileptic seizures, but they are not caused by epilepsy. There are two types of non-epileptic seizures: ??? Physiologic non-epileptic seizure. This type results from an underlying problem that causes a disruption in your brain???s electrical activity. ??? Psychogenic non-epileptic seizure. This type results from emotional stress. These seizures are sometimes called pseudoseizures. What are the causes? Causes of physiologic non-epileptic seizures can include: ??? Sudden drop in blood pressure. ??? Low blood sugar (glucose). ??? Low levels of salt (sodium) in your blood. ??? Low levels of calcium in your blood. ??? Migraine. ??? Heart rhythm problems. ??? Sleep disorders, such as narcolepsy. ??? Movement disorders, such as Tourette syndrome. ??? Infection. ??? Certain medicines. ??? Drug and alcohol abuse. ??? Fever. Common causes of psychogenic non-epileptic seizures can include: ??? Stress. ??? Emotional trauma. ??? Sexual or physical abuse. ??? Major life events, such as divorce or of a loved one. ??? Mental health disorders, including anxiety and depression. What are the signs or symptoms? Symptoms of a non-epileptic seizure can be similar to those of an epileptic seizure, which may include: ??? A change in attention or behavior (altered mental status). ??? Loss of consciousness or fainting. ??? Convulsions with rhythmic jerking movements. ??? Drooling. ??? Rapid eye movements. ??? Grunting. ??? Loss of bladder control and bowel control. ??? Bitter taste in the mouth. ??? Tongue biting. Some people experience unusual sensations (aura) before having a seizure. These can include: ??? Butterflies in the stomach. ??? Abnormal smells or tastes. ??? A feeling of having had a new experience before (d??j?? vu). After a non-epileptic seizure, you may have a headache or sore muscles or feel confused and sleepy. Non-epileptic seizures usually: ??? Do not cause physical injuries. ??? Start slowly. ??? Include crying or shrieking. ??? Last longer than 2 minutes. ??? Include pelvic thrusting. How is this diagnosed? Non-epileptic seizures may be diagnosed by: ??? Your medical history. ??? A physical exam. ??? Your symptoms. ? Your health care provider may want to talk with your friends or relatives who have seen you have a seizure. ? If possible, it is helpful if you write down your seizure activity, including what led up to the seizure, and share that information with your health care provider. You may also need to have tests to look for causes of physiologic non-epileptic seizures. These may include: ??? An electroencephalogram (EEG). This test measures electrical activity in your brain. If you have had a non-epileptic seizure, the results of your EEG will likely be normal. ??? Video EEG. This test takes place in the hospital over the course of 2???7 days. The test uses a video camera and an EEG to monitor your symptoms and the electrical activity in your brain. ??? Blood tests. ??? Lumbar puncture. This test involves pulling fluid from your spine to check for infection. ??? Electrocardiogram (ECG or EKG). This test checks for an abnormal heart rhythm. ??? CT scan. If your health care provider thinks you have had a psychogenic non-epileptic seizure, you may need to see a mental health specialist for an evaluation. How is this treated? The treatment for your seizures will depend on what is causing them. When the underlying condition is treated, your seizures should stop. If your seizures are being caused by emotional trauma or stress, your health care provider may recommend that you see a mental health professional. Treatment may include: ??? Relaxation therapy or cognitive behavioral therapy. ??? Medicines to treat depression or anxiety. ??? Individual or family counseling. In some cases, you may have psychogenic seizures in addition to epileptic seizures. If this is the case, you may be prescribed medicine to help with the epileptic seizures. Follow these instructions at home: Home care will depend on the type of non-epileptic seizures that you have. In general: ??? Follow all instructions from your health care provider. These may include ways to prevent seizures and what to do if you have a seizure. ??? Take [id number] and prescription medicines only as told by your health care provider. ??? Keep all follow-up visits as told by your health care provider. This is important. ??? Make sure family members, friends, and coworkers are trained on how to help you if you have a seizure. If you have a seizure, they should: ? Lay you on the ground to prevent a fall. ? Place a pillow or piece of clothing under your head. ? Loosen any clothing around your neck. ? Turn you onto your side. If vomiting occurs, this helps keep your airway clear. ??? Avoid any substances that may prevent your medicine from working properly. If you are prescribed medicine for seizures: ? Do not use recreational drugs. ? Limit or avoid alcoholic beverages. Contact a health care provider if: ??? Your seizures change or become more frequent. ??? You continue to have seizures after treatment. Get help right away if: ??? You injure yourself during a seizure. ??? You have one seizure after another. ??? You have trouble recovering from a seizure. ??? You have chest pain or trouble breathing. ??? You have a seizure that lasts longer than 5 minutes. Summary ??? Non-epileptic seizures may look like epileptic seizures, but they are not caused by epilepsy. ??? The treatment for your seizures will depend on what is causing them. When the underlying condition is treated, your seizures should stop. ??? Make sure family members, friends, and coworkers are trained on how to help you if you have a seizure. If you have a seizure, they should lay you on the ground to prevent a fall, protect your head and neck, and turn you onto your side. This information is not intended to replace advice given to you by your health care provider. Make sure you discuss any questions you have with your health care provider. Document Released: 08/01/2006 Document Revised: 05/29/2018 Document Reviewed: 03/28/2017 [employer] Patient Education ?? 2020 [employer]. Emergency Awareness and Preventative Care STROKE is an EMERGENCY Every Minute Counts Act FAST and Check for these signs: FACE Does the face look uneven? ARM Does one arm drift down? SPEECH Does their speech sound strange? TIME Call at any sign of stroke Stroke Risk Factors Atrial Fibrillation (irregular heartbeat) Diabetes Family history of stroke Heart Disease Heavy alcohol use High Blood Pressure High Cholesterol Physical inactivity and obesity Smoking Cigarette Smoking The facts are clear, cigarette smoking will shorten your life. Smoking can cause many illnesses along the way. As a healthcare provider, we recommend that you stop smoking. Assistance with quitting is available by contacting 4-443-INKS-NOW. This is a free resource providing counseling, support, and referral. Or you may contact your personal physician. National Suicide Prevention Lifeline: The National Suicide Prevention Lifeline is a national network of local crisis centers that provides free and confidential emotional support to people in suicidal crisis or emotional distress 24 hours a day, 7 days a week. Don't Wait! Stop a Heart Attack Before it Starts What is a heart attack? A heart attack is damage or to a part of the heart from severely decreased or lack of blood flow to the heart. Over time, arteries can become narrow from the buildup of fat and cholesterol, which is called plaque. The plaque can rupture causing a blood clot to form. When the blood clot forms, the artery can become severely narrowed or completely blocked, causing a heart attack. Heart attack is the leading cause of in the [place]. 85% of muscle damage occurs within the first 2 hours. Delay in the recognition of heart attack symptoms increases the chances of . Know the early symptoms of a heart attack: Nausea Feeling of fullness in chest Jaw Pain Pain that travels down one or both arms Fatigue/being tired Anxiety Back Pain Chest pressure, squeezing, or discomfort Shortness of breath Sweating, or a cold sweat Feeling of impending doom There are unusual signs of a heart attack, too! Women, the elderly, and diabetics may present with atypical symptoms: Fainting/dizziness Weakness Confusion Risk Factors for a Heart Attack Some heart disease risk factors, such as age and family history, cannot be changed. Others, like smoking and lack of exercise, can be changed. Smoking High Cholesterol High Blood Pressure Family History Obesity Age Gender (Males are at higher risk) Lack of Exercise Diabetes Diet Stress Excessive Alcohol Intake If you or someone you know is experiencing the signs and symptoms of a heart attack, DON???T DELAY. Call immediately and seek help. If someone collapses, perform CPR! Do not attempt to drive if you are having symptoms of heart attack. Hands-Only CPR Why Hands-Only CPR? Hands-Only CPR has been shown to be as effective as conventional CPR for cardiac arrests that occur outside of a hospital. Survival depends on immediately receiving CPR from someone nearby. How do you perform Hands-Only CPR? There are two easy steps: Call if you see a teen or adult collapse Push hard and fast in the center of the chest at a beat of 100 beats per minute. Save a life! 4 WAYS TO GET AHEAD OF SEPSIS SEPSIS is a MEDICAL EMERGENCY. Time matters! Infections put you and your family at risk for a life-threatening condition called sepsis. Sepsis is the body's extreme response to an infection. It is life-threatening, and without timely treatment, sepsis can rapidly lead to tissue damage, organ failure, and . Sepsis happens when an infection you already have-in your skin, lungs, urinary tract or somewhere else-triggers a chain reaction throughout your body. 1 PREVENT INFECTIONS Take good care of chronic conditions. Talk to your doctor about getting the recommended vaccines. 2 PRACTICE GOOD HYGIENE Wash your hands frequently. Keep cuts or open sores clean and covered until they are healed. 3 KNOW THE SYMPTOMS Confusion or disorientation Shortness of breath High heart rate Fever, shivering, or feeling very cold Extreme pain or discomfort Clammy or sweaty skin 4 ACT FAST Get medical care IMMEDIATELY if you suspect sepsis or if you have an infection that is not getting better or is getting worse. To learn more about sepsis and how to prevent infections, visit www.cdc.gov/sepsis. Test Results Laboratory or Other Results This Visit (last charted value for your 04/17/2020 visit) No Laboratory or Other Results This Visit Patient Name:VANE RAYA I have received and understand this information and was given the opportunity to ask questions. Patient/Vascular Surgery Physician Name: Patient/Vascular Surgery Physician Signature: Relationship to Patient: Clinician/Hospital Vascular Surgery Physician Signature: Date: documented in this encounter Plan of Treatment Not on file documented as of this encounter Visit Diagnoses Not on filedocumented in this encounter
--- OUTSIDE RECORDS SUMMARY | 2024-12-06 15:25 | XMS_ITS | Encounter Summary ---
Author Organization [employer] Address [address] [place] [address] Care Team Providers Care Geospatial Systems Integrator Name Role Phone Unavailable Primary Care Provider Unavailabl e Encounter Details Date Type Department Care Team (Late st Contact Info) Description 04/19/2020 Transcribed Document [facility] [address] [place] [address] ProviderEder MD [facility] [place] [address] Social History Tobacco Use Types Packs/Day Years Used Date Smoking Tobacco: Never Assessed Comments Unknown Sex and Gender Information Value Date Recorded Sex Assigned at Female 12/27/2021 4:26 PM CDT Legal Sex Female 5:19 PM CDT Gender Identity Female 12/27/2021 4:26 PM CDT Sexual Orientation Not on file documented as of this encounter Miscellaneous Notes * Cerner Conversion Note - Eder Provider, - 04/19/2020 12:17 PM CDT [address] , [place] [address] Patient Copy Patient Information: Name: VANE RAYA Current Date: 04/19/2020 12:17:27 : 1975 Patient Address: [address] [place] [address] Patient Attending Physician: HANANE WOLFE MD-MANOJ Primary Care Provider: FLASH SANTANA Primary Care Provider Phone: Discharge Diagnosis: Nonepileptic episode Comment: Follow-up Instructions: With: Address: When: Hattie Joe [address] [place] [address] Business (1) Within 3 months Discharge Instructions: Immunizations Documented During Stay: No Immunizations Found Heart Failure Discharge Instructions (if any): Stroke Related Discharge Instructions (if any): Warfarin Related Discharge Instructions (if any): Final Medication List: Other Medications acetaminophen-hydrocodone (acetaminophen-HYDROcodone 325 mg-7.5 mg oral tablet) 1 Tablet(s) Oral Three Times A Day as needed for pain. albuterol (albuterol 2.5 mg/3 mL (0.083%) inhalation solution) 3 Milliliter(s) Inhalation Every 6 Hours as needed as needed for wheezing. albuterol (albuterol CFC free 90 mcg/inh inhalation aerosol with adapter) 2 Puff(s) Inhalation Four Times A Day as needed for wheezing. desvenlafaxine (Pristiq 50 mg oral tablet, extended release) 1 Tablet(s) Oral Every Day. diazePAM (diazePAM 10 mg oral tablet) 1 Tablet(s) Oral At Bedtime. divalproex sodium (divalproex sodium 250 mg oral delayed release tablet) 2 Tablet(s) Oral At Bedtime. menthol topical (Biofreeze) 1 Application(s) Topical Three Times A Day as needed Pain (Moderate 4-6). Patient Allergies: Uncoded Allergy (See Comment); PROzac; traZODone; traMADol; acetaminophen-traMADol; fluvoxaMINE; Ibuprofen IB; Latex; Percocet; acetaminophen-codeine; loratadine; terbutaline; magnesium sulfate; nitrofurantoin; ibuprofen Medication Instructions: Take your medications faithfully. Do NOT skip [...] cramping, rapid heartbeat, difficulty sleeping, and nervousness. CIGARETTE SMOKING: The facts are clear, cigarette smoking will shorten your life. Smoking can cause many illnesses along the way. As a healthcare provider, we recommend that you stop smoking. Assistance with quitting is available by contacting 8-247-OQXA-NOW. This is a free resource providing counseling, support, and referral. Or you may contact your personal physician. 4 WAYS TO GET AHEAD OF SEPSIS SEPSIS is a MEDICAL EMERGENCY. Time matters! Infections put you and your family at risk for a life-threatening condition called sepsis. Sepsis is the body???s extreme response to an infection. It is life-threatening, and without timely treatment, sepsis can rapidly lead to tissue damage, organ failure, and . Sepsis happens when an infection you already have???in your skin, lungs, urinary tract or somewhere else???triggers a chain reaction throughout your body. 1 [...] sepsis or if you have an infection that???s not getting better or is getting worse. To learn more about sepsis and how to prevent infections, visit www.cdc.gov/sepsis. STROKE is an EMERGENCY Every Minute Counts ACT F.A.S.T! FACE ?? Facial droop ?? Uneven smile ARM ?? Arm numbness ?? Arm weakness SPEECH ?? Slurred speech ?? Difficulty speaking or understanding TIME ?? Call 911 and get to the hospital immediately Have the ambulance go to the nearest stroke center. STROKE Risk Factors High blood pressure High cholesterol Heart Disease Diabetes Smoking Heavy alcohol use Physical inactivity and obesity Atrial Fibrillation (irregular heartbeat) Family history of stroke Reminder: Be sure to sign up for the [facility] patient portal, which gives you 20/01 access to your medical information ??? including these discharge instructions ??? using your computer, smartphone, or tablet. Just go to [employer] to get started. Questions? Call . [facility] would like to thank you for allowing us to assist you with your healthcare needs. GEORGES Cardona REBECCA JANE, (or inbound call center representative) have received the above patient education materials/instructions and have verbalized understanding: Patient Signature _ Date/Time Patient Help Desk Team Leader Signature (if needed) Date/Time Clinician/Hospital Help Desk Team Leader Signature (if needed) Date/Time documented in this encounter Plan of Treatment Not on file documented as of this encounter Visit Diagnoses Not on filedocumented in this encounter
--- OUTSIDE RECORDS SUMMARY | 2024-12-06 15:25 | XMS_ITS | Encounter Summary ---
Author Organization Healthcare Address [address] [place] [address] Care Team Providers Care Floor Inspector Name Role Phone Omar Hess MD Primary Care Provider Encounter Details Date Type Department Care Team (Latest Contact Info) Description 11/22/2024 Travel Social History Tobacco Use Types Packs/Day [...] on file documented as of this encounter Plan of Treatment Not on file documented as of this encounter Visit Diagnoses Not on filedocumented in this encounter Care Teams Floor Inspector Relationship Specialty Start Date End Date Omar Hess MD [address] [facility] [place] [address] PCP - General 11/10/20 11/24/24 documented as of this encounter
--- OUTSIDE RECORDS SUMMARY | 2024-12-06 15:25 | XMS_ITS | Encounter Summary ---
Author Organization [employer] Address [address] [place] [address] Care Team Providers Care Bingo Usher Name Role Phone Unavailable Primary Care Provider Unavailabl e Encounter Details Date Type Department Care Team (Late st Contact Info) Description 04/19/2020 Transcribed Document [facility] [place] Family Medicine [address] [place] [address] ProviderEder MD [address] [place] [address] Social History Tobacco Use Types [...] Conversion Note - Historical ProviderMD - 04/19/2020 12:39 PM CDT Patient Education Materials Follows:and Behavioral Health Non-Epileptic Seizures, Adult A seizure can cause: [...] problem that causes a disruption in your brain?s electrical activity. ??? Psychogenic non-epileptic seizure. This [...] of having had a new experience before (d?j? vu). After a non-epileptic seizure, you may [...] in the hospital over the course of 2?7 days. The test uses a video camera [...] if you have a seizure. ??? Take [id number] and prescription medicines only as told by [...] 08/01/2006 Document Revised: 05/29/2018 Document Reviewed: 03/28/2017 Elsevier Patient Education ? 2020 [employer] documented in this encounter Plan of Treatment Not on file documented as of this encounter Visit Diagnoses Not on filedocumented in this encounter
--- OUTSIDE RECORDS SUMMARY | 2024-12-06 15:25 | XMS_ITS | Encounter Summary ---
Author Organization [employer] Address [address] [place] [address] Care Team Providers Care Heeler Machine Name Role Phone Unavailable Primary Care Provider Unavailabl e Encounter Details Date Type Department Care Team (Late st Contact Info) Description 04/19/2020 Transcribed Document [facility] [place] Family Medicine [facility] [place] [address] ProviderEder MD [address] [place] [address] Social History Tobacco Use Types [...] Conversion Note - Historical ProviderMD - 04/19/2020 12:19 PM CDT DATE OF ADMISSION: 04/17/2020 DATE OF DISCHARGE: 04/19/2020 FINAL DIAGNOSIS: Nonepileptic episodes. HISTORY: This is a 44-year-old woman with recurrent spells for a few years after she had neck surgery. She has episodes characterized by loss of consciousness, staring and unresponsiveness followed by generalized shaking. She has milder events where she stares and becomes unresponsive that are shorter in duration. PAST MEDICAL HISTORY: 1. Post-traumatic stress disorder. 2. Anxiety/depression. HOSPITAL COURSE: The patient was admitted and had video EEG monitoring. She did not report any event. There were, however, two events noted where she became somewhat restless with frequent change in position and unresponsive on one occasion. Concomitant EEG on both occasions showed no ictal change. Continuous EEG recording showed no epileptiform abnormality. DISPOSITION: I discussed the results of monitoring with the patient. I told her that this study showed no evidence to support the diagnosis of epilepsy. 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 She has benefitted from Depakote and I recommended continued treatment with that medication. PHYSICAL EXAMINATION: VITAL SIGNS: On the day of discharge, blood pressure 125/46, heart rate 66 per minute and regular. HEENT: Pupils equal and reactive. LUNGS: Clear. HEART: Regular rate and rhythm. Normal peripheral pulses. NEUROLOGIC EXAMINATION: She is alert and well oriented. Normal language functions. Normal cranial nerves. Normal motor exam. Normal [id number]-[id number]. DISCHARGE INSTRUCTIONS: 1. No driving. 2. Divalproex sodium 500 mg daily. 3. Albuterol 3 mL inhalation as needed. 4. Pristiq 50 mg daily. 5. Diazepam p.r.n. 6. Biofreeze one application three times daily as needed. 7. Follow up with Dr. Diaz within 3 months. /[id number] MD BENJI Cabrera/AQ / BENJI / MODL /[id number] Electronically signed by Braden [facility] Conversion Chief School Finance Officer Cerner at 10/17/2022 5:52 PM CDT documented in this encounter Plan of Treatment Not on file documented as of this encounter Visit Diagnoses Not on filedocumented in this encounter
--- OUTSIDE RECORDS SUMMARY | 2024-12-06 15:25 | XMS_ITS | Encounter Summary ---
Author Organization [employer] Address [address] [place] [address] Care Team Providers Care Tooling Engineer Name Role Phone Unavailable Primary Care Provider Unavailabl e Encounter Details Date Type Department Care Team (Late st Contact Info) Description 04/18/2020 Transcribed Document [facility] [place] Family Medicine [address] [place] [address] ProviderEder MD [address] [place] [address] Social History Tobacco Use Types [...] Conversion Note - Historical ProviderMD - 04/18/2020 8:52 AM CDT UM Authorization Entered On: 04/18/2020 8:53 EDT Performed On: 04/18/2020 8:52 EDT by LUH PATTEN RN-Utilization Review Primary Insurance Authorization Authorization and Policy Numbers : Insurance 1 Health Plan: [employer] [facility] Policy Number: [id number] Authorization Number: NPR Insurance Primary Name : [facility] [id number] Authorized Service Begin Date-Primary : 04/17/2020 EDT Observation Authorization Nbr-Primary : [id number] Authorization Comments-Primary : ref # per scanned document Historical Authorization Comments-Primary : No Authorization Comments Found LUH PATTEN, RN-Utilization Review - 04/18/2020 8:52 EDT Electronically signed by Braden [facility] Conversion [employer] Mk 2 Advanced Operator Cerner at 10/17/2022 6:00 PM CDT documented in this encounter Plan of Treatment Not on file documented as of this encounter Visit Diagnoses Not on filedocumented in this encounter
--- OUTSIDE RECORDS SUMMARY | 2024-12-06 15:25 | XMS_ITS | Encounter Summary ---
Author Organization [employer] Address [address] [place] [address] Care Team Providers Care Digital Marketing Consultant Name Role Phone Unavailable Primary Care Provider Unavailabl e Encounter Details Date Type Department Care Team (Late st Contact Info) Description 04/17/2020 Transcribed Document [facility] [place] Medicine [address] [place] [address] ProviderEder MD [address] [place] [address] Social History Tobacco Use Types [...] Conversion Note - Historical ProviderMD - 04/17/2020 3:53 PM CDT EPILEPSY ADMISSION NOTE. DATE OF ADMISSION: 04/17/2020 ADMITTING PHYSICIAN: HANANE WOLFE MD REASON FOR ADMISSION: Recurrent seizures. HISTORY: This is a 44-year-old woman, who reports recurrent spells that started a few years ago following neck surgery. She has had episodes characterized by loss of consciousness, staring and unresponsiveness followed by generalized stiffening and shaking activity that may last up to 10 minutes. She has had significant benefit since starting Depakote. She has milder events where she stares and becomes unresponsive for 1 to 2 minutes. ALLERGIES: 1. Acetaminophen. 2. Fluvoxamine. 3. Ibuprofen. 4. Loratadine. 5. Magnesium. 6. Nitrofurantoin. 7. Prozac. 8. Terbutaline. 9. Tramadol. 10. Trazodone. MEDICATIONS AT HOME: 1. Albuterol inhalation 2.5 mL every 6 hours as needed. 2. Desvenlafaxine 50 mg daily. 3. Diazepam 10 mg nightly. 4. Divalproex 500 mg daily. 5. Biofreeze topical application three times daily as needed. PAST SURGICAL HISTORY: None. REVIEW OF SYSTEMS: She denies symptoms referable to the cardiac, pulmonary, gastrointestinal, or genitourinary systems. She has symptoms of depression and anxiety but denies suicidal ideation. She reports impaired vision and hearing. She has had difficulties with memory functions. She has had paresthesias and weakness in the extremities. PHYSICAL EXAMINATION: VITAL SIGNS: Blood pressure 121/60, heart rate 70 per minute and regular, respiratory rate 16 per minute. HEENT: Pupils are equal and reactive. NECK: Supple. Normal carotid pulses. LUNGS: Clear. HEART: Regular rate and rhythm. Normal peripheral pulses. NEUROLOGIC: She is alert and well oriented. Normal language functions. Normal cranial nerves. Full range of motion of extraocular muscles. Symmetric facial contractions. Normal tongue movements. Her motor examination was normal with normal strength in the upper and lower extremities. COORDINATION: Normal [id number]. Normal rapid alternating movements. IMPRESSION: Ms. Raya presents with recurrent spells of a few years duration. She has had mild episodes where she is witnessed to stare and becomes unresponsive. She has had more intense episodes with witnessed generalized stiffening and jerking of extremities. She could have focal seizures with impaired awareness, with or without progression to tonic-clonic activity. Alternatively, there may be a nonepileptic component. PLAN: 1. Admit to the epilepsy monitoring uni. 2. Start video EEG monitoring. 3. Seizure precautions. 4. Discontinue divalproex. 5. Use lorazepam 2 mg IV for repetitive or prolonged seizures. /[id number] MD BENJI Cabrera/NUSRAT / BENJI / ADALI Electronically signed by Braden [facility] Conversion Sharepoint Specialist Cerner at 10/17/2022 5:57 PM CDT documented in this encounter Plan of Treatment Not on file documented as of this encounter Visit Diagnoses Not on filedocumented in this encounter
--- OUTSIDE RECORDS SUMMARY | 2024-12-06 15:25 | XMS_ITS | Encounter Summary ---
Author Organization [employer] Address [address] [place] [address] Care Team Providers Care Stunt Driver Name Role Phone Unavailable Primary Care Provider Unavailabl e Encounter Details Date Type Department Care Team (Late st Contact Info) Description 04/19/2020 Transcribed Document [facility] [place] [facility] [place] [address] ProviderEder [place] [address] Social History Tobacco Use Types [...] Conversion Note - Historical ProviderMD - 04/19/2020 1:18 PM CDT Nursing Discharge Summary Entered On: 04/19/2020 13:19 EDT Performed On: 04/19/2020 13:18 EDT by Jeanne Pryor RN Discharge Documentation Discharge Date/Time : 04/19/2020 13:17 EDT Transporter Signature : Jeanen Pryor RN Patient Disposition, General : Discharge Discharge To : Home with ambulatory/outpatient follow-up Mode Of Departure, General Discharge : Private vehicle Accompanied By, Discharge : Daughter IV Discontinued : Yes Personal Belongings With Patient : Yes Pt's Own Supply of Medications Returned : Yes Prescriptions Given to Patient : No Discharge Instructions Reviewed With, Opportunity For Questions Given : Patient Patient Education Completed : Yes Teaching Method : Explanation Teaching Evaluation : Verbalizes understanding Education Comment : Senior Care Monitoring on the EMU Jeanne Pryor RN - 04/19/2020 13:18 EDT Electronically signed by Braden [facility] Conversion Towboat Captain Cerner at 10/17/2022 5:55 PM CDT documented in this encounter Plan of Treatment Not on file documented as of this encounter Visit Diagnoses Not on filedocumented in this encounter
--- OUTSIDE RECORDS SUMMARY | 2024-12-06 15:25 | XMS_ITS | Encounter Summary ---
Author Organization [employer] Address [address] [place] [address] Care Team Providers Care Mexican Food Cook Name Role Phone Unavailable Primary Care Provider Unavailabl e Encounter Details Date Type Department Care Team (Late st Contact Info) Description 04/19/2020 Transcribed Document [facility] [place] [address] [place] [address] ProviderEder MD [address] [place] [address] Social History Tobacco Use Types [...] Conversion Note - Eder ProviderMD - 04/19/2020 9:06 AM CDT DATE OF SERVICE: 04/18/2020 REPORT TYPE: EEG REFERRING PHYSICIAN: Mamadou Campa MD REPORT TITLE: Video Electroencephalogram Report STUDY DURATION: One day. HISTORY: This is a 44-year-old woman being evaluated for seizures. EEG VIDEO MONITORING METHODOLOGY: Time-locked EEG-video monitoring was performed using the 32-channel BeInSync monitoring system. The seizure detection computer was [...] during the period of monitoring. There was however one possible event recorded. On 04/18/2020 at 22:52:45, the patient is lying on her right side, partially covered with bed sheets. She pulls sheets and then puts her left hand over her head at 22:53:08. She then sits up in bed and nods her head forward. She then leans on her right side at 22:55:50 before sitting up again. She remains in a sitting position until 23:03:35 when she lies on her right side across the bed again before sitting up. She then gets up from bed again briefly before sitting in bed. Concomitant EEG showed no change from baseline background activity except for artifacts corresponding to the patient's movements. TIME SAMPLES: The recording was reviewed. During wakefulness, 10.5 to 11 Hz activity is seen posteriorly. Lower amplitude faster activity in the beta range is noted with a wider distribution. Occasional 4 to 5 Hz theta waves are seen at F7-T7, more commonly during periods of drowsiness. During sleep, well-formed sleep spindles are seen in both hemispheres. SPIKE DETECTION: The spike detection program was activated during the period of monitoring and revealed no abnormal paroxysmal activity. EEG DIAGNOSES: This is an abnormal video EEG study because of: 1. Intermittent slow waves noted at F7-T7. 2. The EEG accompanying one possible event showed no change from baseline background activity except for artifacts corresponding to the patient's movements. CLINICAL INTERPRETATION: There was no clinical event reported during the period of monitoring. There was one questionable event where the patient intermittently sat up before lying across the bed and appearing somewhat restless and in discomfort. Concomitant EEG showed no ictal change. The event was therefore not epileptic in nature. Continuous EEG recordings showed no epileptiform abnormality. This study therefore provides no evidence to support the diagnosis of epilepsy. EEG recordings showed intermittent slow waves in the left anterior temporal electrodes suggestive of mild focal cerebral dysfunction in the left anterior temporal region. /[id number] MD BENJI Cabrera/NUSRTA / BENJI / MODL /[id number] documented in this encounter Plan of Treatment Not on file documented as of this encounter Visit Diagnoses Not on filedocumented in this encounter
--- OUTSIDE RECORDS SUMMARY | 2024-12-06 15:25 | XMS_ITS | Encounter Summary ---
Author Organization [employer] Address [address] [place] [address] Care Team Providers Care Bus Trolley And Taxi Instructor Name Role Phone Unavailable Primary Care Provider Unavailabl e Encounter Details Date Type Department Care Team (Late st Contact Info) Description 04/17/2020 Transcribed Document [facility] [place] Family Medicine [address] [place] [address] ProviderEder MD [address] [place] [address] Social History Tobacco Use Types [...] Conversion Note - Historical ProviderMD - 04/17/2020 2:28 PM CDT Neurodiagnostics Event Note Entered On: 04/17/2020 14:28 EDT Performed On: 04/17/2020 14:28 EDT by Kia Cuevas R.EEG.T Neurodiagnostics Event Note Neurodiagnostic Event Date/Time : 04/17/2020 14:28 EDT Neurodiagnostic Event Location : Neurodiagnostic department Neurodiagnostic Event Details : Procedure completed Kia Cuevas R.EEG.T - 04/17/2020 14:28 EDT documented in this encounter Plan of Treatment Not on file documented as of this encounter Visit Diagnoses Not on filedocumented in this encounter
--- OUTSIDE RECORDS SUMMARY | 2024-12-06 15:26 | XMS_ITS | Encounter Summary ---
Author Organization [employer] Address [address] [place] [address] Care Team Providers Care Excellence Specialist Name Role Phone Unavailable Primary Care Provider Unavailabl e Encounter Details Date Type Department Care Team (Late st Contact Info) Description 04/17/2020 Transcribed Document [facility] [place] Family Medicine [address] [place] [address] ProviderEder MD [address] [place] [address] Social History Tobacco Use Types [...] Conversion Note - Historical ProviderMD - 04/17/2020 9:35 PM CDT Pain Assessment Entered On: 04/18/2020 16:20 EDT Performed On: 04/18/2020 10:43 EDT by YOLANDA BARGER RN Intervention Information: acetaminophen-HYDROcodone Performed by YOLANDA BARGER RN on 04/18/2020 09:43:00 EDT acetaminophen-HYDROcodone,1Tab Oral,Pain (Moderate 4-6) Pain Assessment Pain Assessment : Follow-up assessment Pain Scale Goal : 3 Pain Scale Used : 0-10 Scale YOLANDA BARGER RN - 04/18/2020 16:19 EDT Pain Scale Intensity : 0 YOLANDA BARGER RN - 04/18/2020 16:19 EDT Image 4 - Images currently included in the form version of this document have not been included in the text rendition version of the form. documented in this encounter Plan of Treatment Not on file documented as of this encounter Visit Diagnoses Not on filedocumented in this encounter
--- OUTSIDE RECORDS SUMMARY | 2024-12-06 15:26 | XMS_ITS | Encounter Summary ---
Author Organization [facility] Address [address] [place] [address] Care Team Providers Care Planishing Hammer Operator Name Role Phone Bhumi Cohen APRN Primary Care Provider [phone] Junie Carrillo LPN Unavailable Unavailab le Reason for Visit * Reason Comments TCM Call Encounter Details Date Type Department Care Team (Late st Contact Info) Description 11/30/2024 Patient Outreach [facility] [address], [address] [place] [address] Junie Carrillo LPN TCM Call [...] any time in the past 12 m [facility], were you homeless or living in a fci (including now)? No 11/25/2024 Utilities Answer Date Recorded In the past 12 months has th e [employer], gas, oil, or water company threatened to shut off services in your home? No 11/25/2024 Comments Unknown Sex and Gender Information Value Date Recorded Sex Assigned at Not on file Legal Sex Female 8:28 PM EDT Gender Identity Not on file Sexual Orientation Not on file documented as of this encounter Miscellaneous Notes * Progress Notes - Junie Carrillo LPN - 11/30/2024 2:11 PM EDT Admit Date: 11/23/2024 Discharge Date: 11/26/2024 Hospital Service: Internal Medicine Discharge Diagnosis: Abdominal pain 11/30/2024 TCM call # 2 Patient Reached: N Outcome: Attempted to contact [...] night as needed for constipation. [facility] appointment: N/A Items to address at [facility]: Per discharge [...] documented as of this encounter Care Teams Planishing Hammer Operator Relationship Specialty Start Date End Date Bhumi Cohen APRN [address] [place] [address] PCP - General 11/25/24 Junie Carrillo LPN TCM Nurse 11/29/24 documented as of this encounter
--- OUTSIDE RECORDS SUMMARY | 2024-12-06 15:26 | XMS_ITS | Encounter Summary ---
Author Organization [employer] Address [address] [place] [address] Care Team Providers Care Computer Operations Manager Name Role Phone Unavailable Primary Care Provider Unavailabl e Encounter Details Date Type Department Care Team (Late st Contact Info) Description 04/17/2020 Transcribed Document [facility] [place] Medicine [address] [place] [address] ProviderEder MD [address] [place] [address] Social History Tobacco Use Types [...] Conversion Note - Historical ProviderMD - 04/17/2020 10:42 AM CDT Meds to Bed Enrollment Entered On: 04/17/2020 11:35 EDT Performed On: 04/17/2020 10:42 EDT by ASHTYN PRIEST PHARMACIST-MEDICATION RECON Meds to Bed Enrollment Patient Enrollment Decision: : Yes/enroll in meds to bed program ASHTYN PRIEST PHARMACIST-MEDICATION RECON - 04/17/2020 11:35 EDT documented in this encounter Plan of Treatment Not on file documented as of this encounter Visit Diagnoses Not on filedocumented in this encounter
--- OUTSIDE RECORDS SUMMARY | 2024-12-06 15:26 | XMS_ITS ---
Author Organization [facility] Address [address] [place] [address] Care Team Providers Care Mule Tender Name Role Phone Bhumi Cohen APRN Primary Care Provider [phone] Junie Carrillo LPN [facility] Unavailab le Transitional Care Management Status:Identified (Enrolling) Start date:11/29/2024 Enrollment reason:Identified using hospital discharge data Overview This episode type is for outpatient care managers enrolling patients in the [facility] Transitional Care Management program. Case Team Name Relationship Phone Junie Carrillo LPN(Responsible Staff) [facility] Reji lopez Continued Care and Services Coordination
--- OUTSIDE RECORDS SUMMARY | 2024-12-06 15:26 | XMS_ITS | Clinical Summary ---
Author Organization Healthcare Address 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 Unavailab le Allergies Active Allergy Reactions Criticality Noted Date Comments Codeine Itching Medium 12/11/2012 Fluoxetine Unknown - Patient states they do not know rxn details Low 01/17/2016 Fluvoxamine Unknown - Patient states they do not know rxn details Low 01/17/2016 Ibuprofen Nausea 12/11/2012 Latex Unknown - Patient states they do not know rxn details Low 01/18/2017 Loratadine Unknown - Patient states they do not know rxn details Low 01/18/2017 Magnesium Sulfate Unknown - Patient states they do not know rxn details Low 01/18/2017 Naproxen Other - please docum ent in the comment field Low 12/11/2012 makes me feel really weird Nitrofurantoin Unknown - Patient states they do not know rxn details Low 01/17/2016 Oxycodone Unknown - Patient states they do not know rxn details Low 01/18/2017 Sulfa Drugs Unknown - Patient states they do not know rxn details Low 01/17/2016 Sumatriptan Unknown - Patient states they do not know rxn details Low 01/18/2017 Trazodone Other - please docum ent in the comment field Low 12/11/2012 dizziness Medications atorvastatin (Lipitor) 40 MG tablet Take 1 tablet by mouth daily. Active budesonide-form oterol (Symbicort) 160-4.5 MCG/ACT inhaler Inhale 2 puffs 2 times a day. Rinse mouth with water after use to reduce aftertaste and incidence of candidiasis. Do not swallow. Active cholecalciferol (Vitamin D-3) 50 MCG (1999 UT) capsule Take 1 capsule by mouth daily. Active cyanocobalamin 1000 MCG tablet Take 1 tablet by mouth daily. Active desvenlafaxine (Pristiq) 50 MG 24 hr tablet Take 1 tablet by mouth daily. Do not crush, chew, or split. Active desvenlafaxine succinate er (Pristiq) 25 MG 24 hr tablet Take 1 tablet by mouth daily. Active diazePAM (Valium) 5 MG tablet Take 1 tablet by mouth at night as needed for anxiety. Active divalproex (Depakote) [address] tablet Take 2 tablets by mouth nightly. Do not crush, chew, or split. Active HYDROcodone-delgado taminophen (Witten) 5-325 MG tablet Take 1 tablet by mouth daily as needed (pain). Active QUEtiapine (SEROquel) 100 MG tablet Take 1 tablet by mouth at night as needed. Active rizatriptan (Maxalt) 10 MG tablet Take 1 tablet by mouth 1 time as needed for migraine. May repeat in 2 hours if unresolved. Do not exceed 30 mg in 24 hours. Active ondansetron (Zofran) 4 MG tablet Take 1 tablet by mouth every 8 hours as needed for nausea or vomiting. Active ipratropium-alb uterol (Duo-Neb) 0.5-2.5 mg/3 mL nebulizer solution Take 3 mL by nebulization every 6 hours as needed for wheezing. Active oxyCODONE (Roxicodone) 5 MG immediate release tablet Take 1 tablet by mouth every 6 hours as needed for severe pain. 12 tablet 5 Active naloxone (Narcan) 4 mg/0.1 mL nasal spray 1. Give 1 spray in nostril for no/slow breathing or cannot wake after opioid use 2. Call 911 3. Repeat in other nostril if symptoms continue 1 each 5 Active polyethylene glycol (Miralax) 17 g packet Take 17 g by mouth daily as needed (For constipation). 1 each 5 12/27/19 25 Active senna (Senokot) 8.6 MG tablet Take 1 tablet by mouth at night as needed for constipation. 30 tablet 5 12/27/19 25 Active Active Problems Problem Noted Date Diagnosed Date Abdominal pain, generalized 11/24/2024 Encounters Date Type Department Care Team Description 12/01/[address] [address], [address] [place] [address] Junie Carrillo LPN TCM Call 11/30/2024 Patient Outreach [facility] [address], [address] [place] [address] Junie Carrillo LPN TCM Call 11/29/2024 Patient Outreach [facility] [address], [address] [place] [address] Junie Carrillo LPN TCM Call 11/23/2024 12:10 AM EDT - 11/26/2024 3:02 PM EDT Hospital Encounter [facility] In[facility] [address] [place] [address] Rudy Desai MD Stearley, Seth T, MD Patel, Abhisek A, MD Gray, Adam J, MD Abdominal pain, generalized (Primary Dx) Discharge Disposition: Home or Self Care 11/23/2024 Travel 11/22/2024 Travel from Last 3 Months Family History Medical History Relation Name Comments Cardiac disorder Father Other cancer Mother Relation Name Status Comments Father Mother Social History Tobacco Use Types Packs/Day Years [...] any time in the past 12 m [facility], were you homeless or living in a nursing home (including now)? No 11/25/2024 Utilities Answer Date Recorded In the past 12 months has th e [employer], gas, oil, or water company threatened to shut off services in your home? No 11/25/2024 Comments Unknown Sex and Gender Information Value Date Recorded Sex Assigned at Not on file Legal Sex Female 8:28 PM EDT Gender Identity Not on file Sexual Orientation Not on file Last Filed Vital Signs Vital Sign Reading [...] Mass Index 24.8 11/26/2024 8:00 AM EDT Plan of Treatment Health Maintenance Due Date Last Done Comments [facility]-Depression Screening 1974 [facility]-Infant/Child/Adol SDOH Screenings 1974 [facility]-DTaP,Tdap,and Td Vaccine s (1 - Tdap) 1993 [facility]-Hepatitis B Vaccines (1 of 3 - 19+ 3-dose series) 1993 CT Colonography 2019 Colonoscopy 2019 FIT 2019 FOBT 2019 Sigmoidoscopy 2019 [id number] Vaccine (1 - 20 24-25 season) 2024 [facility]-Breast Cancer Screening 2024 [facility]-Pneumococcal Vaccine: 50 + Years (1 of 1 - PCV) 2024 [facility]-Zoster Vaccines (1 of 2) 2024 [facility]-Influenza Vaccine (Seaso n Ended) 2025 [facility]- SDOH Screenings 05/28/2025 [facility]-Adult SDOH Screenings 05/28/2025 11/25/2024 FIT-DNA 11/19/2026 11/20/2023 [facility]-Colorectal Cancer Screening 11/19/2026 [facility]-HIV Screening Completed 11/23/2024 [facility]-Hepatitis C Screening Completed 11/23/2024 HPV Vaccines Aged Out No longer eligi ble based on patient's age to complete this topic [facility]-HIB Vaccines Aged Out No longer e ligible based on patient's age to complete this topic [facility]-Hepatitis A Vaccines Aged Out No longer eligible based on patient's age to complete this topic [facility]-IPV Vaccines Aged Out No longer e ligible based on patient's age to complete this topic [facility]-Rotavirus Vaccines Aged Out No lo nger eligible based on patient's age to complete this topic Procedures Procedure Name Priority Date/Time Associated Diagnosis Comments CBC W/O DIFFERENTIAL Pending Discharge 11/26/2024 1:14 AM EDT BASIC METABOLIC PANEL, PLASMA Pending Discharge 11/26/2024 1:14 AM EDT TISSUE TRANSGLUTAMINASE (TTG) AB, IGA (SO) Routine 11/26/2024 1:14 AM EDT EXTRA TUBE LAVENDER TOP Routine 11/26/19 3:18 AM EDT EXTRA TUBES Routine 11/25/2024 3:18 AM EDT MAGNESIUM, PLASMA Routine 11/25/2024 3:1 8 AM EDT BASIC METABOLIC PANEL, PLASMA Routine 11/25/2024 3:18 AM EDT NEISSERIA GONORRHEA DNA BY PCR Routine 11/24/2024 8:12 PM EDT CHLAMYDIA TRACHOMATIS DNA BY PCR Routine 11/24/2024 8:12 PM EDT ECG ADULT Routine 11/24/2024 12:48 PM EDT HELICOBACTER PYLORI ANTIGEN Add-On 11/23/2024 8:42 PM EDT CLOSTRIDIODES (CLOSTRIDIUM) DIFFICILE,PCR STAT Add-on 11/23/2024 8:42 PM EDT COMPREHENSIVE GI PANEL BY PCR STAT 11/23/2024 8:42 PM EDT CANCER ANTIGEN, GI (CA 19.9) STAT 11/23/2024 12:54 PM EDT CA 125 STAT 11/23/2024 12:54 PM EDT CEA, SERUM STAT 11/23/2024 12:54 PM EDT US PELVIS TRANSVAGINAL STAT 7:[address] ABDOMEN PELVIS W IV CONTRAST STAT 11/23/2024 4:46 AM EDT URINALYSIS WITH REFLEX MICROSCOPIC STAT 11/23/2024 1:10 AM EDT C-REACTIVE PROTEIN, PLASMA STAT Add-on 11/23/2024 12:36 AM EDT ED HIV 1/2 ANTIBODY/ANTIGEN SCREEN WITH REFLEX TO HIV I/II DIFFERENTIATION STAT 11/23/2024 12:36 AM EDT ED PROTOCOL HIV 1/2 ANTIBODY/ANTIGEN SCREEN W/REFLEX TO HIV 1/2 ANTIBODY DIFFERENTIATION STAT 11/23/2024 12:36 AM EDT HEPATITIS C ANTIBODY - ED W/REFLEX TO HCV QUANT PCR STAT 11/23/2024 12:36 AM EDT TEST QUALITATIVE PLASMA STAT 11/23/2024 12:36 AM EDT BLOOD GAS PANEL, VENOUS STAT 11/24/19 12:36 AM EDT LIPASE, PLASMA STAT 11/23/2024 12:36 AM EDT MAGNESIUM, PLASMA STAT 11/23/2024 12:36 AM EDT COMPREHENSIVE METABOLIC PANEL, PLASMA STAT 11/23/2024 12:36 AM EDT PROTHROMBIN TIME(PT) / INR STAT 11/23/2024 12:36 AM EDT CBC WITH AUTO DIFFERENTIAL STAT 11/23/2024 12:36 AM EDT from Last 3 Months Results * Tissue Transglutaminase (tTG) Ab, IgA (SO) (11/26/2024 1:14 AM EDT) Tissue Transglutaminase (tTG) Ab, IgA <1.02 0.00 - 4.99 FLU 11/30/2024 5:28 AM EDT [employer]) Blood Venous blood specimen / Unknown Venipuncture / Unknown 11/26/2024 1:14 AM EDT 11/26/2024 1:33 AM EDT Narrative [employer]) - 11/30/2024 5:28 AM EDT INTERPRETIVE INFORMATION: [...] indicate a response to therapy. Performed By: [facility] [address] [place] [address] Block Inspector: Augustine Osei MD, PhD CLIA Number: [id number] us Oliver Kim MD LAB REF LAB BLOOD AND FLUID ORD Final Result [facility] ([facility]) [address] [place] [address] * (ABNORMAL) CBC W/O Differential (11/26/2024 1:14 AM EDT) WBC Count 7.28 3.70 - 10.30 10*3/uL LAB HEMATOLOGY METHOD 11/26/2024 1:39 AM EDT [facility] RBC Count 3.88(L) 3.90 - 5.20 10*6/uL LAB HEMATOLOGY METHOD 11/26/2024 1:39 AM EDT [facility] HGB 12.5 11.2 - 15.7 g/dL LAB HEMATOLOGY METHOD 11/26/2024 1:39 AM EDT [facility] HCT 35.9 34.0 - 45.0 % LAB HEMATOLOGY METHOD 11/26/2024 1:39 AM EDT [facility] Platelet Count 211 155 - 369 10*3/uL LAB HEMATOLOGY METHOD 11/26/2024 1:39 AM EDT [facility] MCV 93 79 - 98 fL LAB HEMATOLOGY METHOD 11/26/2024 1:39 AM EDT [facility] MCH 32.2(H) 26.0 - 32.0 pg LAB HEMATOLOGY METHOD 11/26/2024 1:39 AM EDT [facility] MCHC 34.8 30.7 - 35.5 g/dL LAB HEMATOLOGY METHOD 11/26/2024 1:39 AM EDT [facility] RDW 12.4 11.5 - 14.5 % LAB HEMATOLOGY METHOD 11/26/2024 1:39 AM EDT [facility] MPV 10.9 8.8 - 12.5 fL LAB HEMATOLOGY METHOD 11/26/2024 1:39 AM EDT [facility] nRBC 0.0 <=0.0 per 100 WBCs LAB HEMATOLOGY METHOD 11/26/2024 1:39 AM EDT [facility] Blood Venous blood specimen / Unknown Venipuncture / Unknown 11/26/2024 1:14 AM EDT 11/26/2024 1:34 AM EDT us Oliver Kim MD LAB BLOOD ORDERABLES Final Resul t [facility] [address] [place] [address] * (ABNORMAL) Basic Metabolic Panel, Plasma (11/26/2024 1:14 AM EDT) Only the most recent of2 resultswithin the time period is included. Glucose, Plasma 125(H) 74 - 99 mg/dL 11/26/2024 2:05 AM EDT [facility] BUN, Plasma 9 7 - 21 mg/dL 11/26/2024 2:05 AM EDT [facility] Creatinine, Plasma 0.71 0.60 - 1.10 mg/dL 11/26/2024 2:05 AM EDT [facility] BUN/Creatinine Ratio 13 11/26/2024 2:05 AM EDT [facility] Sodium, Plasma 137 136 - 145 mmol/L 11/26/2024 2:05 AM EDT [facility] Potassium, Plasma 4.3 3.6 - 4.9 mmol/L 11/26/2024 2:05 AM EDT [facility] Chloride, Plasma 102 97 - 107 mmol/L 11/26/2024 2:05 AM EDT [facility] CO2, Plasma 23 22 - 29 mmol/L 11/26/2024 2:05 AM EDT [facility] Anion Gap 12 6 - 16 mmol/L 11/26/2024 2:05 AM EDT [facility] Total Calcium, Plasma 8.9 8.9 - 10.2 mg/dL 11/26/2024 2:05 AM EDT [facility] eGFRcr 103.7 mL/min/1.7 3m*2 11/26/2024 2:05 AM EDT [facility] Comment:Reported eGFRcr in m L/min/1.73m2 is based the CKD-EPI 2020 equation that does not use a race coefficient. Blood Venous blood specimen / Unknown Venipuncture / Unknown 11/26/2024 1:14 AM EDT 11/26/2024 1:33 AM EDT us Oliver Kim MD LAB BLOOD ORDERABLES Final Resul t Performing Organization Address City/[facility]/ZIP Co de Phone Number [facility] [address] [place] [address] * Lavender Top (11/25/2024 3:18 AM EDT) Extra Hold for add-ons 11/25/2024 6:01 AM EDT [facility] Comment:Auto resulted. Blood Venous blood specimen / Unknown 11/25/2024 3:18 AM EDT 11/25/2024 3:44 AM EDT Result Lottie Kim MD LAB BLOOD ORDERABLES Final Resul t Performing Organization Address City/[facility]/ZIP Co de Phone Number [facility] [address] [place] [address] * Magnesium (11/25/2024 3:18 AM EDT) Only the most recent of2 resultswithin the time period is included. Magnesium, Plasma 2.0 1.9 - 2.4 mg/dL 11/25/2024 4:20 AM EDT [facility] Blood Venous blood specimen / Unknown Venipuncture / Unknown 11/25/2024 3:18 AM EDT 11/25/2024 3:44 AM EDT Result Lottie Kim MD LAB BLOOD ORDERABLES Final Resul t Performing Organization Address [facility]/ZIP Co de Phone Number [facility] [address] [place] [address] * Chlamydia trachomatis by PCR (11/24/2024 8:12 PM EDT) Chlamydia trachomatis DNA PCR Result Not Detected Not Detected 11/25/2024 10:33 PM EDT [facility] Urine Cervix uteri structure / Unknown Non-blood Collection / Unknown 11/24/2024 8:12 PM EDT 11/24/2024 8:24 PM EDT Narrative [facility] - 11/25/2024 10:33 PM EDT This test is performed by the [employer] instrument for Real Time PCR C. trachomatis and N. gonorrhea. This test is FDA approved for use with endocervical, vaginal, and urine specimens. This test is used for clinical purposes. It should not be regarded as invesigational or for research. The [facility] is certified under the Clinical Laboratory Improvement Amendments of 1988 (CLIA-88) as qualified to perform high complexity clinical laboratory testing. us Oliver Kim MD LAB MICROBIOLOGY - GENERAL ORDER PAULA Final Result Performing Organization Address [facility] [place] [address] * Neisseria gonorrhea DNA by PCR (11/24/2024 8:12 PM EDT) Neisseria gonorrhea DNA PCR Result Not Detected Not Detected. 11/25/2024 10:33 PM EDT [facility] Urine Cervix uteri structure / Unknown Non-blood Collection / Unknown 11/24/2024 8:12 PM EDT 11/24/2024 8:24 PM EDT Narrative [facility] - 11/25/2024 10:33 PM EDT This test is performed by the [employer] instrument for Real Time PCR C. trachomatis and N. gonorrhea. This test is FDA approved for use with endocervical, vaginal, and urine specimens. This test is used for clinical purposes. It should not be regarded as invesigational or for research. The [facility] is certified under the Clinical Laboratory Improvement Amendments of 1988 (CLIA-88) as qualified to perform high complexity clinical laboratory testing. Oliver Kim MD LAB MICROBIOLOGY - GENERAL ORDER PAULA Final Result Performing Organization Address City/[facility]/ZIP Co de Phone Number [facility] [address] [place] [address] * ECG Adult (11/24/2024 12:48 PM EDT) EKG DIAGNOSIS CLASS Normal MUSE ECG Ventricular Rate 68 BPM MUSE ECG Atrial Rate 68 BPM MUSE ECG PA Interval 130 ms MUSE ECG QRSD Interval 82 ms MUSE ECG QT Interval 380 ms MUSE ECG QTC Interval 404 ms MUSE ECG P [place] 64 degrees MUSE ECG R [place] 70 degrees MUSE ECG T Wave [place] 55 degrees MUSE ECG Diagnosis Normal sinus rhythm MUSE ECG Diagnosis Normal ECG MUSE ECG Diagnosis MUSE ECG Diagnosis Confirmed by Gaston Cantu ([id number]) on 11/24/2024 1:04:29 PM MUSE ECG 11/24/2024 12:4 8 PM EDT 11/24/2024 1:04 PM EDT Oliver Kim MD ECG ORDERABLES Final Result Performing Organization Address [facility] Co de Phone Number MUSE ECG * Comprehensive GI Panel by PCR (11/23/2024 8:42 PM EDT) Campylobacter PCR Result Not Detected Not Detected 11/24/2024 7:52 AM EDT [facility] Plesiomonas shigelloides PCR Result Not Detected Not Detected 11/24/2024 7:52 AM EDT [facility] Salmonella PCR Result Not Detected Not Detected 11/24/2024 7:52 AM EDT [facility] Vibrio species PCR Result Not Detected Not Detected 11/24/2024 7:52 AM EDT [facility] Vibrio cholerae PCR Result Not Detected Not Detected 11/24/2024 7:52 AM EDT [facility] Yersinia enterocolitica PCR Result Not Detected Not Detected 11/24/2024 7:52 AM EDT [facility] Enteroaggregative E. coli (EAEC) PCR Result Not Detected Not Detected 11/24/2024 7:52 AM EDT [facility] Enteropathogenic E. coli (EPEC) PCR Result Not Detected Not Detected 11/24/2024 7:52 AM EDT [facility] Enterotoxigenic E. coli (ETEC) lt/st PCR Result Not Detected Not Detected 11/24/2024 7:52 AM EDT [facility] Shiga-like Toxin-Producing E.coli (STEC) stx1/stx2 PCR Resu Not Detected Not Detected 11/24/2024 7:52 AM EDT [facility] E coli 0157 PCR Result Not Detected Not Detected 11/24/2024 7:52 AM EDT [facility] Shigella/Enteroinvas alvaro E. coli (EIEC) PCR Result Not Detected Not Detected 11/24/2024 7:52 AM EDT [facility] Cryptosporidium PCR Result Not Detected Not Detected 11/24/2024 7:52 AM EDT [facility] Cyclospora cayetanensis PCR Result Not Detected Not Detected 11/24/2024 7:52 AM EDT [facility] Entamoeba histolytica PCR Result Not Detected Not Detected 11/24/2024 7:52 AM EDT [facility] Giardia duodenalis (aka Giardia lamblia) PCR Result Not Detected Not Detected 11/24/2024 7:52 AM EDT [facility] Adenovirus F 40/41 PCR Result Not Detected Not Detected 11/24/2024 7:52 AM EDT [facility] Astrovirus PCR Result Not Detected Not Detected 11/24/2024 7:52 AM EDT [facility] Norovirus GI/GII PCR Result Not Detected Not Detected 11/24/2024 7:52 AM EDT [facility] Rotavirus A PCR Result Not Detected Not Detected 11/24/2024 7:52 AM EDT [facility] Sapovirus PCR Result Not Detected Not Detected 11/24/2024 7:52 AM EDT [facility] Stool Rectum structure / Unknown Non-blood Collection / Unknown 11/23/2024 8:42 PM EDT 11/23/2024 8:58 PM EDT [facility] - 11/24/2024 7:52 AM EDT This [...] OR DERABLES Final Result Performing Organization Address [facility] de Phone Number [facility] [address] [place] [address] * Clostridiodes (Clostridium) difficile PCR (11/23/2024 8:42 PM EDT) C difficile PCR toxin B gene DNA Result Not Detected Not Detected 11/24/2024 3:18 PM EDT [facility] Stool Rectum structure / Unknown Non-blood Collection / Unknown 11/23/2024 8:42 PM EDT 11/23/2024 8:58 PM EDT Narrative [facility] - 11/24/2024 3:18 PM EDT This test is FDA approved for use with liquid stool specimens. This test is used for clinical purposes. It should not be regarded as investigational or for research. This laboratory is certified under the Clinical Laboratory Improvement Amendments of 1988 (CLIA-88) as qualified to perform high complexity clinical laboratory testing. us John Sheets MD LAB MICROBIOLOGY - GENERAL OR DERABLES Final Result Performing Organization Address [facility] Co de Phone Number [facility] [address] [place] [id number] * Helicobacter pylori Antigen (11/23/2024 8:42 PM EDT) Helicobacter pylori Antigen Result Negative Negative 11/24/2024 7:53 PM EDT [facility] Stool Rectum structure / Unknown Non-blood Collection / Unknown 11/23/2024 8:42 PM EDT 11/23/2024 8:58 PM EDT Oliver Kim MD LAB MICROBIOLOGY - GENERAL ORDER PAULA Final Result Performing Organization Address [facility] [place] [address] * Cancer antigen 19-9 (11/23/2024 12:54 PM EDT) CA 19.9 8.15 <36 U/mL 11/23/2024 1:4 8 PM EDT [facility] Blood Venous blood specimen / Unknown Venipuncture / Unknown 11/23/2024 12:54 PM EDT 11/23/2024 1:12 PM EDT Narrative [facility] - 11/23/2024 1:48 PM EDT Performed by [employer] electrochemiluminescent immunoassay. Results obtained with different test methods or kits cannot be used interchangeably. Merrill Saavedra MD LAB BLOOD ORDERABLES Molly l Result Performing Organization Address [facility] [place] [address] * CA 125 (11/23/2024 12:54 PM EDT) CA 125 7.96 <=38.00 U/mL 11/23/2024 1:48 PM EDT [facility] Blood Venous blood specimen / Unknown Venipuncture / Unknown 11/23/2024 12:54 PM EDT 11/23/2024 1:12 PM EDT Narrative [facility] - 11/23/2024 1:48 PM EDT Performed by [employer] immunoassay. Results obtained with different test methods or kits cannot be used interchangeably. Merrill Saavedra MD LAB BLOOD ORDERABLES Molly l Result Performing Organization Address [facility] Co de Phone Number [facility] [address] [place] [address] * CEA (11/23/2024 12:54 PM EDT) CEA, Serum <1.8 <4.0 ng/mL 11/23/2024 1:48 PM EDT [facility] Blood Venous blood specimen / Unknown Venipuncture / Unknown 11/23/2024 12:54 PM EDT 11/23/2024 1:12 PM EDT Narrative [facility] - 11/23/2024 1:48 PM EDT Normal range for smokers: < 5.5 ng/ml Normal range for non-smokers: <=4.0 ng/ml Performed by [employer] electrochemiluminescent immunoassay. Results obtained with different test methods or kits cannot be used interchangeably. Merrill Saavedra MD LAB BLOOD ORDERABLES Molly l Result Performing Organization Address [facility] Co de Phone Number [facility] [address] [place] [address] * US Pelvis Transvaginal (11/23/2024 7:07 AM [...] - AUTOMATED METHOD 11/23/2024 1:19 AM EDT [facility] Clarity, Urine Clear LAB URINALYSIS - AUTOMATED METHOD 11/23/2024 1:19 AM EDT [facility] Spec Blackey, Urine 1.017 1.005 - 1.030 LAB URINALYSIS - AUTOMATED METHOD 11/23/2024 1:19 AM EDT [facility] pH, Urine 6.0 5.0 - 8.0 LAB URINALYSIS - AUTOMATED METHOD 11/23/2024 1:19 AM EDT [facility] Protein, Urine Negative Negative mg/dL LAB URINALYSIS - AUTOMATED METHOD 11/23/2024 1:19 AM EDT [facility] Glucose, Urine Negative Negative mg/dL LAB URINALYSIS - AUTOMATED METHOD 11/23/2024 1:19 AM EDT [facility] Ketones, Urine Negative Negative mg/dL LAB URINALYSIS - AUTOMATED METHOD 11/23/2024 1:19 AM EDT [facility] Blood, Urine Negative Negative LAB URINALYSIS - AUTOMATED METHOD 11/23/2024 1:19 AM EDT [facility] Bilirubin, Urine Negative Negative LAB URINALYSIS - AUTOMATED METHOD 11/23/2024 1:19 AM EDT [facility] Urobilinogen, Urine 0.2 0.2 to 1.0 mg/dL LAB URINALYSIS - AUTOMATED METHOD 11/23/2024 1:19 AM T [facility] Leukocytes, Urine Negative Negative LAB URINALYSIS - AUTOMATED METHOD 11/23/2024 1:19 AM T [facility] Nitrite, Urine Negative Negative LAB URINALYSIS - AUTOMATED METHOD 11/23/2024 1:19 AM T [facility] Urine Urine specimen obtained by clean catch procedure / Unknown Non-blood Collection / Unknown 11/23/2024 1:10 AM EDT 11/23/2024 1:17 AM EDT us Rudy Desai MD LAB URINE ORDERABLES Final Re sult Performing Organization Address City/[facility]/ZIP Co de Phone Number [facility] [address] [place] [address] * ED HIV 1/2 Antibody/Antigen Screen w/Reflex to HIV 1/2 Differentiation (11/23/2024 12:36 AM EDT) HIV 1 & 2 Antibody/Antigen Screen Non Reactive Non Reactive 11/23/2024 1:41 AM EDT [facility] Comment:Screening for HIV 1 & 2 antibodies, and P24 antigen is NONREACTIVE. No confirmatory testing is required. Blood Venous blood specimen / Unknown Venipuncture / Unknown 11/23/2024 12:36 AM EDT 11/23/2024 1:03 AM EDT us Rudy Desai MD LAB BLOOD ORDERABLES Final Re sult Performing Organization Address [facility]/ZIP Co de Phone Number [facility] [address] [place] [address] * Hepatitis C Antibody - ED (11/23/2024 12:36 AM EDT) Hepatitis C Antibody Negative Negative 11/23/2024 1:44 AM EDT [facility] Blood Venous blood specimen / Unknown Venipuncture / Unknown 11/23/2024 12:36 AM EDT 11/23/2024 1:03 AM EDT us Rudy Desai MD LAB BLOOD ORDERABLES Final Re sult Performing Organization Address City/[facility]/ZIP Co de Phone Number [facility] [address] [place] [address] * PT-INR (11/23/2024 12:36 AM EDT) Prothrombin Time 12.4 12.0 - 14.3 sec 11/23/2024 1:05 AM EDT [facility] INR 0.9 0.9 - 1.1 11/23/2024 1:05 AM EDT [facility] Blood Venous blood specimen / Unknown Venipuncture / Unknown 11/23/2024 12:36 AM EDT 11/23/2024 12:45 AM EDT Narrative [facility] - 11/23/2024 1:05 AM EDT OPTIMAL INR RANGES FOR PATIENT ON ORAL ANTICOAGULANT THERAPY Prevention of venous thromboembolism INR 2.0 to 3.0 In patients with heart disease: Atrial fibrillation INR 2.0 to 3.0 Valvular heart disease INR 2.0 to 3.0 Tissue heart valves INR 2.0 to 3.0 Mechanical prosthetic valves INR 2.5 to 3.5 Prevention of recurrent OH INR 2.5 to 3.5 us Rudy Desai MD LAB BLOOD ORDERABLES Final Re sult [facility] [address] [place] [address] * (ABNORMAL) CBC w/diff (11/23/2024 12:36 AM EDT) WBC Count 12.23(H) 3.70 - 10.30 10*3/uL LAB HEMATOLOGY METHOD 11/23/2024 12:51 AM EDT [facility] RBC Count 4.08 3.90 - 5.20 10*6/uL LAB HEMATOLOGY METHOD 11/23/2024 12:51 AM EDT [facility] HGB 13.0 11.2 - 15.7 g/dL LAB HEMATOLOGY METHOD 11/23/2024 12:51 AM EDT [facility] HCT 37.0 34.0 - 45.0 % LAB HEMATOLOGY METHOD 11/23/2024 12:51 AM EDT [facility] Platelet Count 242 155 - 369 10*3/uL LAB HEMATOLOGY METHOD 11/23/2024 12:51 AM EDT [facility] MCV 91 79 - 98 fL LAB HEMATOLOGY METHOD 11/23/2024 12:51 AM EDT [facility] MCH 31.9 26.0 - 32.0 pg LAB HEMATOLOGY METHOD 11/23/2024 12:51 AM EDT [facility] MCHC 35.1 30.7 - 35.5 g/dL LAB HEMATOLOGY METHOD 11/23/2024 12:51 AM EDT [facility] RDW 12.3 11.5 - 14.5 % LAB HEMATOLOGY METHOD 11/23/2024 12:51 AM EDT [facility] MPV 11.0 8.8 - 12.5 fL LAB HEMATOLOGY METHOD 11/23/2024 12:51 AM EDT [facility] nRBC 0.0 <=0.0 per 100 WBCs LAB HEMATOLOGY METHOD 11/23/2024 12:51 AM EDT [facility] Differential Type Automated LAB HEMATOLOGY METHOD 11/23/2024 12:51 AM EDT [facility] Neutrophils % 61 % LAB HEMATOLOGY METHOD 11/23/2024 12:51 AM EDT [facility] Lymphocytes % 32 % LAB HEMATOLOGY METHOD 11/23/2024 12:51 AM EDT [facility] Monocytes % 6 % LAB HEMATOLOGY METHOD 11/23/2024 12:51 AM EDT [facility] Eosinophils % 1 % LAB HEMATOLOGY METHOD 11/23/2024 12:51 AM EDT [facility] Basophils % 0 % LAB HEMATOLOGY METHOD 11/23/2024 12:51 AM EDT [facility] Immature Granulocytes % 0 % LAB HEMATOLOGY METHOD 11/23/2024 12:51 AM EDT [facility] Neutrophils Absolute 7.44(H) 1.60 - 6.10 10*3/uL LAB HEMATOLOGY METHOD 11/23/2024 12:51 AM EDT [facility] Lymphocytes Absolute 3.95(H) 1.20 - 3.90 10*3/uL LAB HEMATOLOGY METHOD 11/23/2024 12:51 AM EDT [facility] Monocytes Absolute 0.68 0.30 - 0.90 10*3/uL LAB HEMATOLOGY METHOD 11/23/2024 12:51 AM EDT [facility] Eosinophils Absolute 0.08 0.00 - 0.50 10*3/uL LAB HEMATOLOGY METHOD 11/23/2024 12:51 AM EDT [facility] Basophils Absolute 0.04 0.00 - 0.10 10*3/uL LAB HEMATOLOGY METHOD 11/23/2024 12:51 AM EDT [facility] Immature Granulocytes Absolute 0.04 0.00 - 0.06 10*3/uL LAB HEMATOLOGY METHOD 11/23/2024 12:51 AM EDT [facility] Blood Venous blood specimen / Unknown Venipuncture / Unknown 11/23/2024 12:36 AM EDT 11/23/2024 12:45 AM EDT [facility] - 11/23/2024 12:51 AM EDT Therapeutic decision making should be based on absolute values, rather than percentages. us Rudy Desai MD LAB BLOOD ORDERABLES Final Re sult Performing Organization Address [facility]/[place] [address] * C-reactive protein (11/23/2024 12:36 AM EDT) CRP, Plasma <3.0 <=8.0 mg/L 11/23/2024 5:10 PM EDT [facility] Blood Venous blood specimen / Unknown Venipuncture / Unknown 11/23/2024 12:36 AM EDT 11/23/2024 12:45 AM EDT [facility] - 11/23/2024 5:10 PM EDT This CRP test is appropriate for assessment of infection, systemic inflammation and/or tissue injury. To assess cardiovascular disease risk order high sensitivity CRP (CRPH). Luis Fernando Ly MD LAB BLOOD ORDERABLES Final Re sult Performing Organization Address City/[facility]/ZIP Co de Phone Number [facility] [address] [place] [address] * hCG qualitative (11/23/2024 12:36 AM EDT) Test Negative Negative 11/23/2024 1:34 AM EDT [facility] Blood Venous blood specimen / Unknown Venipuncture / Unknown 11/23/2024 12:36 AM EDT 11/23/2024 12:45 AM EDT [facility] - 11/23/2024 1:34 AM EDT Reference Range: Males and non- females: Negative. us Rudy Desai MD LAB BLOOD ORDERABLES Final Re sult Performing Organization Address City/[facility]/ZIP Co de Phone Number [facility] [address] [place] [address] * (ABNORMAL) Lipase (11/23/2024 12:36 AM EDT) Lipase, Plasma 18(L) 19 - 63 U/L 11/23/2024 1:34 AM EDT [facility] Blood Venous blood specimen / Unknown Venipuncture / Unknown 11/23/2024 12:36 AM EDT 11/23/2024 12:45 AM EDT us Rudy Desai MD LAB BLOOD ORDERABLES Final Re sult Performing Organization Address [facility] Co de Phone Number [facility] [address] [place] [address] * (ABNORMAL) Blood gas panel, venous (11/23/2024 12:36 AM EDT) pH, Venous 7.40 7.32 - 7.43 LAB HEMATOLOGY METHOD 11/23/2024 1:06 AM EDT [facility] pCO2, Venous 46 37 - 52 mmHg LAB HEMATOLOGY METHOD 11/23/2024 1:06 AM EDT [facility] pO2, Venous 26 25 - 40 mmHg LAB HEMATOLOGY METHOD 11/23/2024 1:06 AM EDT [facility] SO2, Measured, Venous 47(L) 65 - 80 % LAB HEMATOLOGY METHOD 11/23/2024 1:06 AM EDT [facility] Base Excess, Venous 3.5(H) -2.0 - 3.0 mmol/L LAB HEMATOLOGY METHOD 11/23/2024 1:06 AM EDT [facility] Bicarbonate, Calculated, Venous 29(H) 22 - 26 mmol/L LAB HEMATOLOGY METHOD 11/23/2024 1:06 AM EDT [facility] Hematocrit, Whole Blood 41.2 34.0 - 45.0 % LAB HEMATOLOGY METHOD 11/23/2024 1:06 AM EDT [facility] Sodium, Whole Blood 142 136 - 145 mmol/L LAB HEMATOLOGY METHOD 11/23/2024 1:06 AM EDT [facility] Potassium, Whole Blood 4.0 3.6 - 4.9 mmol/L LAB HEMATOLOGY METHOD 11/23/2024 1:06 AM EDT [facility] Chloride, Whole Blood 104 97 - 107 mmol/L LAB HEMATOLOGY METHOD 11/23/2024 1:06 AM EDT [facility] Glucose, Whole Blood 86 74 - 99 mg/dL LAB HEMATOLOGY METHOD 11/23/2024 1:06 AM EDT [facility] Lactate, Venous, Whole Blood 1.6 0.5 - 2.2 mmol/L LAB HEMATOLOGY METHOD 11/23/2024 1:06 AM EDT [facility] Ionized Calcium, Whole Blood 4.5(L) 4.6 - 5.1 mg/dL LAB HEMATOLOGY METHOD 11/23/2024 1:06 AM EDT [facility] Blood Venous blood specimen / Unknown Venipuncture / Unknown 11/23/2024 12:36 AM EDT 11/23/2024 1:03 AM EDT us Rudy Desai MD LAB BLOOD ORDERABLES Final Re sult [facility] [address] [place] [address] * (ABNORMAL) CMP (11/23/2024 12:36 AM EDT) Glucose, Plasma 89 74 - 99 mg/dL 11/23/2024 1:34 AM EDT [facility] BUN, Plasma 11 7 - 21 mg/dL 11/23/2024 1:34 AM EDT [facility] Creatinine, Plasma 0.72 0.60 - 1.10 mg/dL 11/23/2024 1:34 AM EDT [facility] BUN/Creatinine Ratio 15 11/23/2024 1:34 AM EDT [facility] Sodium, Plasma 138 136 - 145 mmol/L 11/23/2024 1:34 AM EDT [facility] Potassium, Plasma 4.1 3.6 - 4.9 mmol/L 11/23/2024 1:34 AM EDT [facility] Chloride, Plasma 102 97 - 107 mmol/L 11/23/2024 1:34 AM EDT [facility] CO2, Plasma 22 22 - 29 mmol/L 11/23/2024 1:34 AM EDT [facility] Anion Gap 14 6 - 16 mmol/L 11/23/2024 1:34 AM EDT [facility] Total Calcium, Plasma 9.1 8.9 - 10.2 mg/dL 11/23/2024 1:34 AM EDT [facility] Total Protein 6.7 6.3 - 7.9 g/dL 11/23/2024 1:34 AM EDT [facility] Albumin, Plasma 3.9 3.5 - 5.2 g/dL 11/23/2024 1:34 AM EDT [facility] AST, Plasma 14 10 - 35 U/L 11/23/2024 1:34 AM EDT [facility] ALT, Plasma 14 10 - 35 U/L 11/23/2024 1:34 AM EDT [facility] Alkaline Phosphatase, Plasma 73 35 - 104 U/L 11/23/2024 1:34 AM EDT [facility] Total Bilirubin, Plasma <0.2(L) 0.2 - 1.1 mg/dL 11/23/2024 1:34 AM EDT [facility] eGFRcr 102.0 mL/min/1.7 3m*2 11/23/2024 1:34 AM EDT [facility] Comment:Reported eGFRcr in m L/min/1.73m2 is based the CKD-EPI 2020 equation that does not use a race coefficient. Blood Venous blood specimen / Unknown Venipuncture / Unknown 11/23/2024 12:36 AM EDT 11/23/2024 12:45 AM EDT us Rudy Desai MD LAB BLOOD ORDERABLES Final Re sult [facility] [address] [place] [address] from Last [address], [place] [address] [employer] [facility] MEDICAID Advance Directives * Full Code (Latest Code Status on File) Date Activated Date Inactivated Comments 11/23/2024 2:32 PM 11/26/2024 5:07 PM Question Answer Comments I have reviewed the capacity from the link above and, if needed, have updated to appropriate status: Yes Care Teams Practice Performance Manager Relationship Specialty Start Date End Date Bhumi Cohen, [employer]CIAL [employer]AD [address] [place] [address] PCP - General 11/25/24 Junie Carrillo LPN TCM Nurse 11/29/24
--- OUTSIDE RECORDS SUMMARY | 2024-12-06 15:26 | XMS_ITS | Encounter Summary ---
Author Organization Healthcare Address [address] [place] [address] Care Team Providers Care Grated Cheese Maker Name Role Phone Bhumi Cohen APRN Primary Care Provider [phone] Junie Carrillo LPN Unavailable Unavailab le Reason for Visit * Reason Comments TCM Call Encounter Details Date Type Department Care Team (Late st Contact Info) Description 11/29/2024 Patient Outreach [facility] [address], [address] [place] [address] Junie Carrillo LPN TCM Call [...] time in the past 12 m [facility], were you homeless or living in a snf (including now)? No 11/25/2024 Utilities Answer Date Recorded In the past 12 months has th e [employer], gas, oil, or water company threatened to shut off services in your home? No 11/25/2024 Comments Unknown Sex and Gender Information Value Date Recorded Sex Assigned at Not on file Legal Sex Female 8:28 PM EDT Gender Identity Not on file Sexual Orientation Not on file documented as of this encounter Miscellaneous Notes * Progress Notes - Junie Carrillo LPN - 11/29/2024 11:03 AM EDT Admit Date: 11/23/2024 Discharge Date: 11/26/2024 Hospital Service: Internal Medicine Discharge Diagnosis: Abdominal pain 11/29/2024 TCM call # 1 Patient Reached: N Outcome: Attempted to contact [...] documented as of this encounter Care Teams Grated Cheese Maker Relationship Specialty Start Date End Date Bhumi Cohen APRN [address] [place] [address] PCP - General 11/25/24 Junie Carrillo LPN TCM Nurse 11/29/24 documented as of this encounter
--- OUTSIDE RECORDS SUMMARY | 2024-12-06 15:26 | XMS_ITS | Clinical Summary ---
Author Organization [employer] Address [address] [place] [id number] Care Team Providers Care Train Control Electronic Technician Name Role Phone Unavailable Primary Care [...]
[2024-12-06 15:43] VITALS: BP 111/79; PULSE 74; RESP 14; O2SAT 97; BMI 24.7
--- NOTE | 2024-12-06 15:52 | EXP.PAIN.SOA ---
[facility] Disclaimer: The information contained in this section may have been updated after the patient was seen, as this information can be updated by other users. Medical History Benzodiazepine withdrawal Urinary tract infection symptoms Nerve pain Cervical radicular pain Sciatica Nightmares associated with chronic post-traumatic stress disorder Left leg pain Spell of altered consciousness Fall Urinary symptom or sign Lumbar radiculopathy Dizziness Dizziness Hypokalemia Anxiety Skin lesions Skin lesions, generalized Abnormal electrocardiogram [ECG] [EKG] Dyspnea Depression Strep pharyngitis Complete miscarriage Acute pain of left knee Arm pain, left Swelling of labia Allergic reaction caused by a drug UTI (urinary tract infection) No significant past medical history Rash and nonspecific skin eruption Generalized seizure COVID-19 Vomiting Headache Gastroenteritis Pharyngitis Exposure to COVID-19 virus Viral syndrome Chronic lumbar pain COPD exacerbation Strain of lumbar region Concussion Fall Seizure Medication reaction Lower extremity pain Functional abdominal pain syndrome Neck Pain Elbow pain Anxiety Cervical strain Acute bronchitis Bronchitis Surgical History History of kidney surgery History of D&C H/O: History of appendectomy History of partial hysterectomy H/O cervical spine surgery Family History Other Cancer Diabetes Heart attack Hypertension Stroke Social History Smoking Status: Former smoker tobacco type: cigarettes packs per day: 1 smoking status stop date: 2015 alcohol intake: never substance use type: denies use current occupational status: other Travel in the last 8 weeks?: None household members: none housing: other Have you lived/traveled outside US in past 30 days?: No Contact w/someone who lives/traveled outside US past 30 days?: No Exposure to someone with infectious disease in past 14 days?: No Do you have a fever (greater than 100.4 F or 38 C)?: No Have you tested positive for COVID-19?: No Exposed to someone with COVID-19 in past 14 days?: No Do you have a sore throat?: No Do you have a cough?: No Do you have any weakness?: No Do you have any diarrhea?: No Are you experiencing any unusual bleeding?: No Do you have any muscle aches/pain?: No Do you have any abdominal pain?: No Are you experiencing loss of taste or smell?: No PM Subjective & Objective Subjective Subjective:: Patient is a pleasant 49-year-old female who presents today for follow-up of her SI injections bilaterally on 11/09/2024. Today she rates her pain a 7 or 8 out of 10. She denies any new falls or injuries. She does state from our last appointment that she actually was in for a week related to stomach issues. She stated that she was having blood in her stool and had a swollen abdomen. She states that she does feel very fatigued following being released. She is still having to do additional test including a stool sample coming up. Patient does state that they ended up having her on oxycodone there at and then when she got home she tried to get primary care to prescribe this and they stated that they would not be doing that. Patient states that she felt rough for couple days but is more so just more fatigued currently. Patient is asking about possible nerve medication such as gabapentin. Patient does state that the injection did really hurt but does really make a difference more prominent along the left side. Patient does however feel like it still is very temporary and is already back to having pain today. Patient does also make mention that she continues to have the chronic neck pain that does go into her left shoulder. Her Darrius has been reviewed. Review of Systems: General: No recent weight changes, no fever, no sleep disturbances Respiratory: No cough, no shortness of air, no recurring pulmonary infections Cardiovascular/peripheral vascular: No chest pain, no palpitations, no edema, no shortness of breath Gastrointestinal: No new onset incontinence, normal bowel movements reported Genitourinary: No new onset incontinence Musculoskeletal: Low back pain, neck pain Psychiatric: [Normal mood/affect] Neurological: [Denies weakness in extremities], [denies balance issues] Pain at rest (0-10 scale): 8 Objective Objective:: Physical Exam: General: Alert and oriented x3, no acute distress, pleasant and cooperative Lungs: Respirations even and unlabored, symmetrical chest expansion Eyes: PERRL Musculoskeletal: Flexion and extension of lumbar [spine] somewhat guarded secondary to pain, [antalgic gait noted] Neurological: Speech clear, no gross sensory deficit Has patient had previous pain injection?: Yes Percent improvement in pain since last injection: Significant improvement but less than 2 weeks Conservative treatment options previously tried: Home exercise plan Length of treatment: Longer than 12 weeks Meds Home Medications and Allergies Home Medications ?Medication ?Instructions ?Recorded ?Confirmed ?Type albuterol sulfate 90 mcg/actuation 2 inh inhalation Q6H PRN shortness 08/29/23 12/06/24 Rx breath activated powder inhaler of breath or wheezing #1 ea budesonide-formoterol HFA 160 1 inh inhalation BID #10.2 grams 11/21/23 12/06/24 Rx mcg-4.5 mcg/actuation aerosol inhaler ipratropium 0.5 mg-albuterol 3 mg 3 ml inhalation Q6H PRN wheezing 11/21/23 12/06/24 Rx (2.5 mg base)/3 mL nebulization #180 mL soln rizatriptan 10 mg disintegrating See Rx Instructions PO .COMPLEX 03/02/24 12/06/24 Rx tablet (Maxalt-ROBOTIC WELDER) #30 tabs diclofenac sodium 1 % topical gel 4 g topical QID #100 grams 04/29/24 12/06/24 Rx (Voltaren Arthritis Pain) lidocaine 4 % topical patch 1 patch topical DAILY PRN pain #30 04/29/24 12/06/24 Rx (Aspercreme (lidocaine)) ea atorvastatin 40 mg tablet 40 mg PO HS #90 tabs 06/11/24 12/06/24 Rx cholecalciferol (vitamin D3) 50 50 mcg PO DAILY #90 caps 06/11/24 12/06/24 Rx mcg (2,000 unit) capsule cyanocobalamin (vitamin B-12) 1,000 mcg PO DAILY #90 tabs 06/11/24 12/06/24 Rx 1,000 mcg tablet meclizine 12.5 mg tablet 12.5 mg PO DAILY 09/30/24 12/06/24 History quetiapine 100 mg tablet 50 mg PO HS PRN as needed 09/30/24 12/06/24 History naloxone 4 mg/actuation nasal 1 spray intranasal Q3M PRN opioid 10/01/24 12/06/24 Rx spray (Narcan) overdose #2 ea desvenlafaxine succinate 25 mg 25 mg PO DAILY #30 tabs 10/27/24 12/06/24 Rx tablet,extended release 24 hr desvenlafaxine succinate 50 mg 50 mg PO DAILY #30 tabs 10/27/24 12/06/24 Rx tablet,extended release 24 hr divalproex 250 mg tablet,delayed 500 mg (2 x 250 mg) PO HS #60 tabs 10/27/24 12/06/24 Rx release diazepam 5 mg tablet 5 mg PO HS PRN anxiety #30 tabs 11/19/24 12/06/24 Rx famotidine 20 mg tablet 20 mg PO BID #60 tabs 12/02/24 12/06/24 Rx New Prescriptions to Start Prescriptions: Allergies Allergy/AdvReac Type Severity Reaction Status Date / Time nitrous oxide Allergy Severe Unknown Verified 12/02/24 11:14 allergy reaction prednisone Allergy Mild shortness Verified 12/02/24 11:14 of breath codeine (CODEINE) Allergy Unknown Unknown Verified 12/02/24 11:14 allergy reaction fluoxetine (From PROZAC) Allergy Unknown Unknown Verified 12/02/24 11:14 allergy reaction ibuprofen (IBUPROFEN) Allergy Unknown Unknown Verified 12/02/24 11:14 allergy reaction latex (LATEX) Allergy Unknown Unknown Verified 12/02/24 11:14 allergy reaction loratadine (From CLARITIN) Allergy Unknown Unknown Verified 12/02/24 11:14 allergy reaction magnesium (MAGNESIUM) Allergy Unknown Unknown Verified 12/02/24 11:14 allergy reaction nitrofurantoin Allergy Unknown Unknown Verified 12/02/24 11:14 (NITROFURANTOIN) allergy reaction oxycodone (OXYCODONE) Allergy Unknown Unknown Verified 12/02/24 11:14 allergy reaction risperidone Allergy Unknown Unknown Verified 12/02/24 11:14 allergy reaction sumatriptan (SUMATRIPTAN) Allergy Unknown Unknown Verified 12/02/24 11:14 allergy reaction tramadol (TRAMADOL) Allergy Unknown Unknown Verified 12/02/24 11:14 allergy reaction trazodone (TRAZODONE) Allergy Unknown Altered Verified 12/02/24 11:14 Sense of Taste duloxetine Allergy Unknown Verified 12/02/24 11:14 allergy reaction metronidazole (From Flagyl) Allergy Hallucinati Verified 12/02/24 11:14 ons Assessment and Plan *Assessment and plan (1) Bilateral sacroiliitis: Status: Acute Category: Medical Code(s): M46.1 - Sacroiliitis, not elsewhere classified (2) Chronic pain syndrome: Status: Acute Category: Medical Code(s): G89.4 - Chronic pain syndrome Plan I did still discuss with the patient in future that she may benefit from injections therefore her neck and increased pain however patient states that she has had these in the past from other providers and that they made it worse and is not interested in any injection therapy there. I did discuss with the patient that unfortunately the gabapentin is a scheduled medication and that I could talk to Dr. Rubio regarding this but it there was no guarantees. We did talk about the possibility of adding muscle relaxers that were nonsedating or nerve medications such as duloxetine or amitriptyline however patient does have concerns with starting medications that she has not tried before in the past. Patient did also have additional questions when she could get her next injection like what we had just done and I did explain to her that that could only be done every 3 months at the earliest. Patient was counseled that she would not be eligible for this injection again until January. Patient was counseled that she can call us for her next follow-up appointment. Patient agrees with this plan of care. Patient has been instructed to contact the clinic with any concerns before the next appointment. Dr. Rubio has reviewed this note and agrees with this plan of care. This note was dictated using voice recognition software and make contain errors or omissions. All injections are used with Lidocaine, Bupivacaine and dexamethasone. Occasionally urine drug screen is needed to verify patient's compliance with our office pain contract. This is ordered based off specific treatments related to chronic pain with the potential to abuse certain medications.
== END 2024-12-06 23:59 | disposition home or self-care (01) ==
LOC: SC.PAIN 15:23
PROVIDERS: PCP Nurse Practitioner Family; Visit Provider Nurse Practitioner Family
DX: M46.1 Sacroiliitis, not elsewhere classified (principal); G89.4 Chronic pain syndrome
CPT/HCPCS: 99212; G0463

== ENCOUNTER 2025-03-23 11:27 | Outpatient (CLI) | payer OTHER, SELFPAY ==
[2025-03-23 19:55] LABS: Free T4 (Free Thyroxine) 0.97 ng/dl (0.78-2.19)
[2025-03-23 20:10] LABS: Thyroid Stimulating Hormone < 0.02 uIU/mL (0.465-4.68)
--- OUTSIDE RECORDS SUMMARY | 2025-03-25 11:29 | XMS_ITS | Clinical Summary ---
Author Organization [facility] Address [address] [place] [address] Care Team Providers Care Generation Manager Name Role Phone None Primary Care Provider [...] age to complete this topic Care Teams Generation Manager Relationship Specialty Start Date End Date None PCP - General 01/16/08
--- OUTSIDE RECORDS SUMMARY | 2025-03-25 11:29 | XMS_ITS | Clinical Summary ---
Author Organization [facility] Address [address] [place] [address] Care Team Providers Care Tactical Intelligence Officer Name Role Phone NoelBhumi Ny ASHRAF Primary Care Provider [phone] Allergies Active Allergy Reactions Criticality Noted Date [...] crush, chew, or split. Active HYDROcodone-delgado taminophen (Randolph) 5-325 MG tablet Take 1 tablet by [...] any time in the past 12 m [facility], were you homeless or living in a fdc (including now)? No 11/25/2024 Utilities Answer Date Recorded In the past 12 months has th e [employer], gas, oil, or water [employer] threatened to shut off services in your [...] UKY-Depression Screening 1975 UKY-/Child/Adol SDOH Screenings 1975 JEN-UZVPE-06 Vaccine (#1) 1979 UKY-DTaP,Tdap,and Td Vaccine s [...] Reactive Non Reactive 11/23/2024 1:41 AM EDT [facility] Comment:Screening for HIV 1 & 2 antibodies, and P24 antigen is NONREACTIVE. No confirmatory testing is required. Blood Venous blood specimen / Unknown Venipuncture / Unknown 11/23/2024 12:36 AM EDT 11/23/2024 1:03 AM EDT Rudy Desai MD LAB BLOOD ORDERABLES Final Re sult Performing Organization Address City/[facility]/ZIP Co de Phone Number [facility] [address] [place] [address] * Hepatitis C Antibody - ED (11/23/2024 12:36 AM EDT) Hepatitis C Antibody Negative Negative 11/23/2024 1:44 AM EDT [facility] Blood Venous blood specimen / Unknown Venipuncture / Unknown 11/23/2024 12:36 AM EDT 11/23/2024 1:03 AM EDT Rudy Desai MD LAB BLOOD ORDERABLES Final Re sult [facility] [address] [place] [address] from Last 3 Months or Most Recently Relevant to Health Maintenance Insurance [address] [place], [place] [address] [employer] [facility] MEDICAID Advance Directives * Full Code (Latest Code Status on File) Date Activated Date Inactivated Comments 11/23/2024 2:32 PM 11/26/2024 5:07 PM Question Answer Comments I have reviewed the capacity from the link above and, if needed, have updated to appropriate status: Yes Care Teams Tactical Intelligence Officer Relationship Specialty Start Date End Date Bhumi Cohen, RETAIL MARKETING COORDINATOR [address] [place] [address] PCP - General 11/25/24
--- OUTSIDE RECORDS SUMMARY | 2025-03-25 11:29 | XMS_ITS | Clinical Summary ---
Author Organization [facility] Address [address] [place] [address] Care Team Providers Care Digital Imaging Technician Name Role Phone Unavailable Primary Care [...]
== END 2025-03-23 23:59 ==
LOC: LAB.DROPOF 03-25 11:27
PROVIDERS: PCP Internal Medicine; Visit Provider Internal Medicine
DX: R79.89 Other specified abnormal findings of blood chemistry (principal); Z13.29 Encounter for screening for other suspected endocrine disorder
CPT/HCPCS: 84439; 84443

== ENCOUNTER 2025-03-24 16:32 | Emergency (ER) | payer OTHER, SELFPAY ==
[2025-03-24] VITALS (7 sets, daily range): BP systolic 137–156; BP diastolic 77–89; PULSE 67–86; RESP 16–20; TEMP 36.4–36.8; O2SAT 98–100; BMI 25.7
--- NOTE | 2025-03-24 16:46 | ECG_ITS ---
APPROVED REPORT Exam: Resting ECG HR:81 bpm ECG Measurements Heart Rate 81 AXES MI 124 P 77 QRSd 95 QRS 89 QT 367 T 76 QTc 404 Conclusion SINUS RHYTHM NORMAL ECG UNCONFIRMED REPORT Electronically signed by : ROBLES ESPAÑA, 03/25/2025 03:57:54
--- OUTSIDE RECORDS SUMMARY | 2025-03-24 16:46 | XMS_ITS | Encounter Summary ---
Author Organization [employer] ([place], [place], [place], [place]) Address [address] [place] [address] Care Team Providers Care Process Treater Name Role Phone Unavailable Primary Care Provider Unavailabl e Encounter Details Date Type Department Care Team (Late st Contact Info) Description 04/19/[address] [facility] [place] [facility] [place] [address] ProviderEder MD [address] [place] [address] Social History Tobacco Use Types Packs/Day Years Used Date Smoking Tobacco: Never Assessed Comments Unknown Sex and Gender Information Value Date Recorded Sex Assigned at Female 12/27/2021 4:26 PM CDT Legal Sex Female 5:19 PM CDT Gender Identity Female 12/27/2021 4:26 PM CDT Sexual Orientation Not on file documented as of this encounter Miscellaneous Notes * Cerner Conversion Note - Eder Mathews MD - 04/19/2020 2:07 PM CDT DATE OF SERVICE: 04/19/2020 REPORT TYPE: EEG REFERRING PHYSICIAN: Mamadou Campa MD REPORT TITLE: Video Electroencephalogram Report STUDY DURATION: 6 hours. HISTORY: This is a 44-year-old woman being evaluated for seizures. EEG VIDEO MONITORING METHODOLOGY: Time-locked EEG-video monitoring was performed using the 32-channel [employer] monitoring system. The seizure detection computer was [...] dysfunction in the left anterior temporal region. /[id number] MD BENJI Cabrera/AQ / BENJI / MODL /[id number] documented in this encounter Plan of Treatment Not on file documented as of this encounter Visit Diagnoses Not on filedocumented in this encounter
--- OUTSIDE RECORDS SUMMARY | 2025-03-24 16:46 | XMS_ITS | Encounter Summary ---
Author Organization [employer] ([place], [place], [place], [place]) Address [address] [place] [address] Care Team Providers Care Patient Care Assistant Name Role Phone Unavailable Primary Care Provider Unavailabl e Encounter Details Date Type Department Care Team (Late st Contact Info) Description 04/17/2020 Transcribed Document [facility] [place] Medicine [facility] [place] [address] ProviderEder MD [address] [place] [address] Social History Tobacco Use Types [...] Cerner Conversion Note - Eder ProviderMD - 04/17/2020 3:53 PM CDT EPILEPSY [...] the upper and lower extremities. COORDINATION: Normal zduzmy-es-neuc. Normal rapid alternating movements. IMPRESSION: Ms. Raya [...] mg IV for repetitive or prolonged seizures. /[id number] MD BENJI Cabrera/NUSRAT / BENJI / MODL Electronically signed by Braden [facility] Conversion Welfare Eligibility Worker Cerner at 10/17/2022 5:57 PM CDT documented in this encounter Plan of Treatment Not on file documented as of this encounter Visit Diagnoses Not on filedocumented in this encounter
--- OUTSIDE RECORDS SUMMARY | 2025-03-24 16:46 | XMS_ITS | Encounter Summary ---
Author Organization [employer] ([place], [place], [place], [place]) Address [address] [place] [address] Care Team Providers Care Keno Terminal Operator Name Role Phone Unavailable Primary Care Provider Unavailabl e Encounter Details Date Type Department Care Team (Late st Contact Info) Description 04/19/2020 Transcribed Document [facility] [place] [address] [place] [address] ProviderEder MD [address] [place] [address] Social History Tobacco Use Types [...] Conversion Note - Eder ProviderMD - 04/19/2020 1:27 PM CDT Final Discharge Planning Entered On: 04/19/2020 13:28 EDT Performed On: 04/19/2020 13:27 EDT by ALESSIO MAXWELL, RN-Dietary Clerk Final Discharge Planning Discharge Arrangements : Patient [...] : Yes Discharge To Care Management : Home/Residential/Nursing Home or Self Care -01 ALESSIO MAXWELL, RN-Dietary Clerk - 04/19/2020 13:27 EDT Final Narrative Note Final Narrative Note : Pt to discharge to home. No discharge needs noted. ALESSIO MAXWELL RN-Dietary Clerk - 04/19/2020 13:27 EDT documented in this encounter Plan of Treatment Not on file documented as of this encounter Visit Diagnoses Not on filedocumented in this encounter
--- OUTSIDE RECORDS SUMMARY | 2025-03-24 16:46 | XMS_ITS | Encounter Summary ---
Author Organization [employer] ([place], [place], [place], [place]) Address [address] [place] [address] Care Team Providers Care Jewelry Sales Coordinator Name Role Phone Unavailable Primary Care Provider Unavailabl e Encounter Details Date Type Department Care Team (Late st Contact Info) Description 04/19/2020 Transcribed Document [facility] [place] Family Medicine [address] [place] [address] ProviderEder MD [address] [place] [address] Social History Tobacco Use Types [...] Note - Eder Mathews MD - 04/19/2020 12:41 PM CDT [place] [address] VANE RAYA :1975 Visit Time:04/17/2020 Your [...] When Within 3 months Where: [address] [place] [address]- [facility] (1) Medications What How Much When Instructions [...] if you have a seizure. ??? Take kpjv-ibq-venncik and prescription medicines only as told by [...] 08/01/2006 Document Revised: 05/29/2018 Document Reviewed: 03/28/2017 [employer] Patient Education ?? 2020 [employer]. Emergency Awareness and Preventative Care STROKE is [...] Assistance with quitting is available by contacting 3-459-ZPLE-NOW. This is a free resource providing counseling, [...] was given the opportunity to ask questions. Patient/Seamer Operator Name: Patient/Seamer Operator Signature: Relationship to Patient: Clinician/Hospital Seamer Operator Signature: Date: Electronically signed by Jimmy Feliciano Conversion Reconciliation Machine Operator Cerner at 10/17/2022 6:15 PM CDT documented in this encounter Plan of Treatment Not on file documented as of this encounter Visit Diagnoses Not on filedocumented in this encounter
--- OUTSIDE RECORDS SUMMARY | 2025-03-24 16:46 | XMS_ITS | Encounter Summary ---
Author Organization [employer] ([place], [place], [place], [place]) Address [address] [place] [address] Care Team Providers Care Form Grader Operator Name Role Phone Unavailable Primary Care Provider Unavailabl e Encounter Details Date Type Department Care Team (Late st Contact Info) Description 04/19/2020 Transcribed Document [facility] [place] [address] [place] [address] ProviderEder MD [address] [place] [address] Social History Tobacco Use Types [...] Conversion Note - Eder ProviderMD - 04/19/2020 12:40 PM CDT Stroke/Warfarin [...] Sudden dizziness or trouble with gait, Call 02-28-: EMS activation is crucial My LDL Level: : LDL Level No qualifying data available. Jeanne Pryor RN - 04/19/2020 12:40 EDT documented in this encounter Plan of Treatment Not on file documented as of this encounter Visit Diagnoses Not on filedocumented in this encounter
--- OUTSIDE RECORDS SUMMARY | 2025-03-24 16:46 | XMS_ITS | Encounter Summary ---
Author Organization [employer] ([place], [place], [place], [place]) Address [address] [place] [address] Care Team Providers Care Catalog Librarian Name Role Phone Unavailable Primary Care Provider Unavailabl e Encounter Details Date Type Department Care Team (Late st Contact Info) Description 04/18/2020 Transcribed Document [facility] [place] Family Medicine [address] [place] [address] ProviderEder MD [address] [place] [address] Social History Tobacco Use Types [...] Conversion Note - Eder ProviderMD - 04/18/2020 12:41 PM CDT Patient: [...] 2 mg, IV Push, Q8H, PRN: Seizures [place] 7.5 mg-325 mg oral tablet: 1 Tab, Oral, Q4H, PRN: Pain (Moderate 4-6) Zofran: 4 mg, IV Push, Q6H, PRN: Nausea/Vomiting albuterol 5 mg/mL (0.5%) inhalation solution: 2.5 mg, 0.5 mL, Nebulized Inhalation, Q6H, PRN: Wheezing desvenlafaxine: 50 mg, Oral, At Bedtime Pending Complete influenza virus vaccine, inactivated: 0.5 mL, IntraMuscular, [id number] Documented Medications Documented Biofreeze: 1 Application, Topical, [...] list: Medical Allergic rhinitis / SNOMED CT 290717223 / Confirmed horse shoe shaped kidney / Confirmed Fasting hypoglycemia / SNOMED CT 82972817 / Confirmed Wears eyeglasses / SNOMED CT 136066581 / Confirmed Asthma / SNOMED CT 371826230 / Confirmed H/O bronchitis / SNOMED CT 303356650 / Confirmed H/O: pneumonia / SNOMED CT 954988139 / Confirmed Hemorrhoids / SNOMED CT 259104393 / Confirmed Renal calculus / SNOMED CT 944107902 / Confirmed Urinary tract infection / SNOMED CT 579533237 / Confirmed Arthritis / SNOMED CT 0406250 / Confirmed Back pain / SNOMED CT 175161404 / Confirmed Restless legs syndrome / SNOMED CT 12234205 / Confirmed Cervical disc disease with myelopathy / SNOMED CT 123002623 / Confirmed Migraine / SNOMED CT 84732026 / Confirmed Concussion / SNOMED CT 403507540 / Confirmed Acute anxiety / SNOMED CT 32364103 / Confirmed History of panic attacks / SNOMED CT 766022350 / Confirmed 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 [place] Weight, est lb 127 lb Weight, est oz 6 oz Estimated Clinical Dosing Weight 57.9 kg Melvin Body Weight 52 kg Weight Source Stated [...] 18 06:08) 115 (APR 18 06:08) 129 (APR 17 19:17) DBP 71 (APR 18 06:08) 71 (APR 18 06:08) 83 (OCT 19 19:17) MAP 87 (APR 18 06:08) 87 (APR 18 06:08) 97 (APR 17 19:17) SpO2 98 (APR 18 06:08) 98 [...]
--- OUTSIDE RECORDS SUMMARY | 2025-03-24 16:46 | XMS_ITS | Encounter Summary ---
Author Organization [employer] ([place], [place], [place], [place]) Address [address] [place] [address] Care Team Providers Care Pick Up And Delivery Driver Name Role Phone Unavailable Primary Care Provider Unavailabl e Encounter Details Date Type Department Care Team (Late st Contact Info) Description 04/19/2020 Transcribed Document [facility] [place] [address] [place] [address] ProviderEder MD [address] [place] [address] Social History Tobacco Use Types [...] Conversion Note - Eder ProviderMD - 04/19/2020 12:39 PM CDT Patient [...] if you have a seizure. ??? Take kvxf-rmb-ptqjqdh and prescription medicines only as told by [...] 08/01/2006 Document Revised: 05/29/2018 Document Reviewed: 03/28/2017 [employer] Patient Education ? 2020 [employer] documented in this encounter Plan of Treatment Not on file documented as of this encounter Visit Diagnoses Not on filedocumented in this encounter
--- OUTSIDE RECORDS SUMMARY | 2025-03-24 16:46 | XMS_ITS | Encounter Summary ---
Author Organization [employer] ([place], [place], [place], [place]) Address [address] [place] [address] Care Team Providers Care Fraud Examiner Name Role Phone Unavailable Primary Care Provider Unavailabl e Encounter Details Date Type Department Care Team (Late st Contact Info) Description 04/19/2020 Transcribed Document [facility] [place] [address] [place] [address] ProviderEder MD [address] [place] [address] Social History Tobacco Use Types [...] Normal cranial nerves. Normal motor exam. Normal xfkbmw-ri-cgaf. DISCHARGE INSTRUCTIONS: 1. No driving. 2. Divalproex sodium 500 mg daily. 3. Albuterol 3 mL inhalation as needed. 4. Pristiq 50 mg daily. 5. Diazepam p.r.n. 6. Biofreeze one application three times daily as needed. 7. Follow up with Dr. Diaz within 3 months. /[id number] MD BENJI Cabrera/AQ / BENJI / MODL /[id number] Electronically signed by Braden, [facility] Conversion Pantographer Cerner at 10/17/2022 5:52 PM CDT documented in this encounter Plan of Treatment Not on file documented as of this encounter Visit Diagnoses Not on filedocumented in this encounter
--- OUTSIDE RECORDS SUMMARY | 2025-03-24 16:46 | XMS_ITS | Encounter Summary ---
Author Organization [employer] ([place], [place], [place], [place]) Address [address] [place] [address] Care Team Providers Care Hot Packer Name Role Phone Unavailable Primary Care Provider Unavailabl e Encounter Details Date Type Department Care Team (Late st Contact Info) Description 04/18/2020 Transcribed Document [facility] [place] Medicine [facility] [place] [address] ProviderEder MD [address], [place] [id number] Social History Tobacco Use Types Packs/Day Years [...] Conversion Note - Eder Mathews MD - 04/18/2020 8:54 AM CDT DATE OF SERVICE: 04/17/2020 REPORT TYPE: EEG REFERRING PHYSICIAN: Mamadou Campa MD REPORT TITLE: Video Electroencephalogram Report STUDY DURATION: One day. HISTORY: This is a 44-year-old woman, being evaluated for seizures. EEG VIDEO MONITORING METHODOLOGY: Time-locked EEG-video monitoring was performed using the 32-channel [employer] monitoring system. The seizure detection computer was [...] dysfunction in the left anterior temporal region. /[id number] Mamadou Campa MD TAF/AQ / TAF / MODL /[id number] documented in this encounter Plan of Treatment Not on file documented as of this encounter Visit Diagnoses Not on filedocumented in this encounter
--- OUTSIDE RECORDS SUMMARY | 2025-03-24 16:46 | XMS_ITS | Encounter Summary ---
Author Organization [employer] ([place], [place], [place], [place]) Address [address] [place] [address] Care Team Providers Care Business Relations Manager Name Role Phone Unavailable Primary Care Provider Unavailabl e Encounter Details Date Type Department Care Team (Late st Contact Info) Description 04/19/2020 Transcribed Document [facility] [place] [address] [place] [address] ProviderEder MD [address] [place] [address] Social History Tobacco Use Types [...] Conversion Note - Eder ProviderMD - 04/19/2020 12:17 PM CDT [address] , [place] [address] Patient Copy Patient Information: Name: VANE RAYA Current Date: 04/19/2020 12:17:27 : 1975 Patient Address: [address] [place] [address] [address] [id number] Patient Attending Physician: HANANE WOLFE MD-MANOJ Primary Care Provider: FLASH SANTANA Primary Care Provider Phone: Discharge Diagnosis: Nonepileptic episode Comment: Follow-up Instructions: With: Address: When: Hattie Joe [address] [place] [address] Business (1) Within 3 months Discharge Instructions: [...] Assistance with quitting is available by contacting 6-313-PNIC-NOW. This is a free resource providing counseling, [...] sure to sign up for the My [facility] patient portal, which gives you 20/01 access to your medical information ??? including these discharge instructions ??? using your computer, smartphone, or tablet. Just go to 8aweek to get started. Questions? Call . [facility] would like to thank you for allowing us to assist you with your healthcare needs. GEORGES Cardona REBECCA JANE, (or accounts payable representative) have received the above patient education materials/instructions and have verbalized understanding: Patient Signature _ Date/Time Patient Loader Engineer Signature (if needed) Date/Time Clinician/Hospital Loader Engineer Signature (if needed) Date/Time documented in this encounter Plan of Treatment Not on file documented as of this encounter Visit Diagnoses Not on filedocumented in this encounter
--- OUTSIDE RECORDS SUMMARY | 2025-03-24 16:46 | XMS_ITS | Encounter Summary ---
Author Organization [employer] ([place], [place], [place], [place]) Address [address] [place] [address] Care Team Providers Care Tombstone Polisher Name Role Phone Unavailable Primary Care Provider Unavailabl e Encounter Details Date Type Department Care Team (Late st Contact Info) Description 04/18/2020 Transcribed Document [facility] [place] [address] [place] [address] ProviderEder MD [address] [place] [address] Social History Tobacco Use Types [...] Policy Numbers : Insurance 1 [facility] Number: [id number] Authorization Number: NPR Insurance Primary Name : MERGED WITH [facility] [id number] Authorized Service Begin Date-Primary : 04/17/2020 EDT Observation Authorization Nbr-Primary : [id number] Authorization Comments-Primary : ref # per scanned document Historical Authorization Comments-Primary : No Authorization Comments Found [facility] PATTEN, RN-Utilization Review - 04/18/2020 8:52 EDT Electronically signed by Braden [facility] Conversion Cargoman Cerner at 10/17/2022 6:00 PM CDT documented in this encounter Plan of Treatment Not on file documented as of this encounter Visit Diagnoses Not on filedocumented in this encounter
--- OUTSIDE RECORDS SUMMARY | 2025-03-24 16:46 | XMS_ITS | Encounter Summary ---
Author Organization [employer] ([place], [place], [place], [place]) Address [address] [place] [address] Care Team Providers Care Pediatric Oncologist Name Role Phone Unavailable Primary Care Provider Unavailabl e Encounter Details Date Type Department Care Team (Late st Contact Info) Description 04/17/2020 Transcribed Document [facility] [place] [facility] [place] [address] ProviderEder MD [address] [place] [address] Social History Tobacco Use Types [...] Conversion Note - Eder ProviderMD - 04/17/2020 11:47 AM CDT Admission History, [...] #2 Relationship : na Primary Language : Hungarian Preferred Communication Mode : Verbal Communication Barrier : None Stripping Shovel Oiler Needed : No Jeanne Pryor RN - 04/17/2020 11:47 EDT Fall Risk Scales ABCs Fall Injury Risk Identification : None KRAUSE Hx Falls Immediate/Within 3 Months : Yes Krause Secondary Diagnosis : Yes KRAUSE Use of Ambulatory Aid : None KRAUSE IV Therapy or IV Access : No Krause Gait/Transferring : Normal, bedrest, immobile Krause Mental Status : Oriented to own ability Krause Fall Risk Score : 40 KRAUSE Fall Scale Risk Level : 25-45 Medium Risk Myrtle Fall Interventions : Adequate lighting, Assistive devices [...] (Last Updated: 04/17/2020 11:55:02 EDT by Jeanne Pryor, RN) Employment/School: Unemployed (Last Updated: 10/17/2014 10:03:53 EDT by ANGELA WAN RN) Height and Weight, Clinical Dosing Height Source : Stated Height Entry Format : [place] Height, Feet : 5 ft(Converted to: 152 cm, 60 Inch) Height, Inches : 3 Inch(Converted to: 0 ft 3 Inch, 7.62 cm) Clinical Height : 160.02 cm Weight Source : Stated [place] Body Weight : 52 kg Jeanne Pryor RN - 04/17/2020 11:47 EDT Estimated Weight Type of Weight Measurement Est : [place]re Weight, est lb : 127 lb(Converted to: [...] Jeanne Pryor RN - 04/17/2020 11:47 EDT [place] Suicide Severity Rating Scale (C-SSRS) CSSRS Past [...] : Cell phone, Wallet, Other: debit card, inspector metal can Personal Items Disposition : With patient Medication Disposition : With patient Medication Brought With Patient : Yes Jeanne Pryor RN - 04/17/2020 11:47 EDT Electronically signed by Jimmy Feliciano Conversion Door Frame Assembler Machine Cerner at 10/17/2022 6:11 PM CDT documented in this encounter Plan of Treatment Not on file documented as of this encounter Visit Diagnoses Not on filedocumented in this encounter
--- OUTSIDE RECORDS SUMMARY | 2025-03-24 16:46 | XMS_ITS | Encounter Summary ---
Author Organization [employer] ([place], [place], [place], [place]) Address [address] [place] [address] Care Team Providers Care Core Worker Name Role Phone Unavailable Primary Care Provider Unavailabl e Encounter Details Date Type Department Care Team (Late st Contact Info) Description 04/18/2020 Transcribed Document [facility] [place] [address] [place] [address] ProviderEder MD [address], [place] [id number] Social History Tobacco Use Types Packs/Day Years [...] Spiritual Care Spiritual Care Referred by : Resident Service Coordinator initiated Reason for Visit : Initial Ministry Provided to : Patient Intervention/Comment/Summary Points : Door closed, RN w/ pt. Chap. consulted w/ RN upon her exiting room. anxiety is a concern for prayer Chap. prayed accordingly o/s pt. room. MAYURI ESCOTO Chaplain - 04/18/2020 4:22 EDT documented in this encounter Plan of Treatment Not on file documented as of this encounter Visit Diagnoses Not on filedocumented in this encounter
--- OUTSIDE RECORDS SUMMARY | 2025-03-24 16:46 | XMS_ITS | Encounter Summary ---
Author Organization [employer] ([place], [place], [place], [place]) Address [address] [place] [address] Care Team Providers Care Refuse Laborer Name Role Phone Unavailable Primary Care Provider Unavailabl e Encounter Details Date Type Department Care Team (Late st Contact Info) Description 04/17/2020 Transcribed Document [facility] [place] [facility] [place] [address] ProviderEder MD [address] [place] [address] Social History Tobacco Use Types [...] Conversion Note - Eder ProviderMD - 04/17/2020 12:05 PM CDT Nutrition Assessment Entered On: 04/18/2020 13:17 EDT Performed On: 04/18/2020 13:17 EDT by MANUEL BRODERICK RD, LD Nutrition Assessment Nutrition Assessment Reason : Automatic referral MANUEL BRODERICK RD, LD - 04/18/2020 13:17 EDT Nutrition Recommendations Dietitian Recommendations : 04/18: Rec'd consult for MST >2 (14-23# weight loss captain cannery tender). SPoke with pt, reports good appetite and intake, really enjoying the food (100% x 3 meals). Pt reports decreased appetite captain cannery tender d/t depression and inability to get to grocery store. Reports ~20# weight loss over the past 1 year but unsure of timeframe. (13% x 1 year not considered significant). Did not observe fat or muscle wasting. LBM 04/16. Current weight 127#. Will rescreen in 7-10 days, no nutrition dx at this time MANUEL BRODERICK, GIGI, LD - 04/18/2020 14:33 EDT documented in this encounter Plan of Treatment Not on file documented as of this encounter Visit Diagnoses Not on filedocumented in this encounter
--- OUTSIDE RECORDS SUMMARY | 2025-03-24 16:46 | XMS_ITS | Encounter Summary ---
Author Organization [employer] ([place], [place], [place], [place]) Address [address] [place] [address] Care Team Providers Care Timber Surveyor Name Role Phone Unavailable Primary Care Provider Unavailabl e Encounter Details Date Type Department Care Team (Late st Contact Info) Description 04/19/2020 Transcribed Document [facility] [place] [facility] [place] [address] ProviderEder MD [address] [place] [address] Social History Tobacco Use Types [...] Conversion Note - Eder ProviderMD - 04/19/2020 1:18 PM CDT Nursing Discharge Summary Entered On: 04/19/2020 13:19 EDT Performed On: 04/19/2020 13:18 EDT by Jeanne Pryor RN Discharge Documentation Discharge Date/Time : 04/19/2020 13:17 EDT Transporter Signature : Jeanne Pryor RN Patient Disposition, General : Discharge [...] Evaluation : Verbalizes understanding Education Comment : Jail Monitoring on the EMU Jeanne Pryor RN - 04/19/2020 13:18 EDT documented in this encounter Plan of Treatment Not on file documented as of this encounter Visit Diagnoses Not on filedocumented in this encounter
--- OUTSIDE RECORDS SUMMARY | 2025-03-24 16:46 | XMS_ITS | Encounter Summary ---
Author Organization [employer] ([place], [place], [place], [place]) Address [address] [place] [address] Care Team Providers Care Seating And Mobility Technologist Name Role Phone Unavailable Primary Care Provider Unavailabl e Encounter Details Date Type Department Care Team (Late st Contact Info) Description 04/17/2020 Transcribed Document [facility] [place] [address] [place] [address] ProviderEder MD [address], [place] [id number] Social History Tobacco Use Types Packs/Day Years [...] Kia Cuevas R.EEG.T - 04/17/2020 14:28 EDT Electronically signed by Jimmy Feliciano Conversion Full Fashioned Garment Knitter Cerner at 10/17/2022 5:48 PM CDT documented in this encounter Plan of Treatment Not on file documented as of this encounter Visit Diagnoses Not on filedocumented in this encounter
--- OUTSIDE RECORDS SUMMARY | 2025-03-24 16:46 | XMS_ITS | Encounter Summary ---
Author Organization [employer] ([place], [place], [place], [place]) Address [address] [place] [address] Care Team Providers Care Sheet Folder Name Role Phone Unavailable Primary Care Provider Unavailabl e Encounter Details Date Type Department Care Team (Late st Contact Info) Description 04/19/2020 Transcribed Document [facility] [place] [facility] [address] ProviderEder MD [address], [place] [id number] Social History Tobacco Use Types Packs/Day Years [...] Note - Eder Mathews MD - 04/19/2020 9:06 AM CDT DATE OF SERVICE: 04/18/2020 REPORT TYPE: EEG REFERRING PHYSICIAN: Mamadou Campa MD REPORT TITLE: Video Electroencephalogram Report STUDY DURATION: One day. HISTORY: This is a 44-year-old woman being evaluated for seizures. EEG VIDEO MONITORING METHODOLOGY: Time-locked EEG-video monitoring was performed using the 32-channel Social [employer] monitoring system. The seizure detection computer was [...] dysfunction in the left anterior temporal region. /[id number] MD BENJI Cabrera/NUSRAT / BENJI / MODL /[id number] documented in this encounter Plan of Treatment Not on file documented as of this encounter Visit Diagnoses Not on filedocumented in this encounter
--- OUTSIDE RECORDS SUMMARY | 2025-03-24 16:46 | XMS_ITS | Referral Summary ---
Author Organization [employer] ([place], [place], [place], [place]) Address [address] [place] [address] Care Team Providers Care Slab Inspector Name Role Phone Unavailable Primary Care Provider [...]
--- OUTSIDE RECORDS SUMMARY | 2025-03-24 16:46 | XMS_ITS | Clinical Summary ---
Author Organization [facility] Address [address] [place] [address] Care Team Providers Care Manager Therapy Name Role Phone Unavailable Primary Care Provider Unavailabl e Social History Tobacco Use Types Packs/Day Years Used Date Smoking Tobacco: Never Assessed Abuse Screen Answer Date Recorded Unsafe at Home or Work/School Not on file Feels Threatened by Someone? Not on file 03/2023 Does Anyone Keep You from Co ntacting Others or Doint Things Outside the Home? Not on file 04/08/2023 Physical Sign of Abuse Present Not on file 1 Housing Stability Answer Date Recorded Current Living Arrangements Not on file 03/30 Potentially Unsafe Housing Conditions Not on gretchen e 04/08/2023 Family and Community Support Answer Medardo e Recorded Help with Day-to-Day Activities Not on file 04/08/2023 Lonely or Isolated Not on file 04/08/2023 Employment Answer Date Recorded Do you want help finding or keeping work or a paris b? Not on file 04/08/2023 Disabilities Answer Date Recorded Concentrating, Remembering, or Making Decisions Difficulty Not on file 04/08/2023 Doing Errands Independently Difficulty Not on fi le 04/08/2023 Education Answer Date Recorded Help with school or training? Not on file Preferred Language Not on file 04/08/2023 Comments Unknown Sex and Gender Information Value Date Recorded Sex Assigned at Not on file Legal Sex Female 1:42 PM EDT Gender Identity Not on file Sexual Orientation Not on file Last Filed Vital Signs Vital Sign Reading Time Taken Comments Blood Pressure 102/58 12/23/2013 1:12 PM EDT Pulse - - Temperature - - Respiratory Rate - - Oxygen Saturation - - Inhaled Oxygen Concentration - - Weight 49 kg (108 lb 0.1 oz) 12/23/2013 1:12 PM EDT Height 160 cm (5' 3 ) 12/23/2013 1:12 PM EDT Body Mass Index 19.13 12/23/2013 1:12 PM EDT Plan of Treatment Health Maintenance Due Date Last Done Comments ANNUAL PHYSICAL 1975 Annual Gynecologic Pelvic and Breast Exam 1975 HEPATITIS C SCREENING 1974 TDAP/TD VACCINES (1 - Tdap) 1993 MAMMOGRAM 2014 COLOGUARD 2019 COLON CANCER SCREENING 5 YEAR SIGMOIDOSCOPY 2019 COLONOSCOPY [address] CANCER SCREENING 2019 [address] COLONOGRAPHY 2019 FECAL OCCULT BLOOD TEST 2019 FIT Testing (1 year) 2019 Pneumococcal Vaccine 50+ (1 of 1 - PCV) 2024 ZOSTER VACCINE (1 of 2) 2024 INFLUENZA VACCINE 01/28/2025
--- OUTSIDE RECORDS SUMMARY | 2025-03-24 16:46 | XMS_ITS | Encounter Summary ---
Author Organization [employer] ([place], [place], [place], [place]) Address [address] [place] [address] Care Team Providers Care Inspector Aide Name Role Phone Unavailable Primary Care Provider Unavailabl e Encounter Details Date Type Department Care Team (Late st Contact Info) Description 04/17/2020 Transcribed Document [facility] [place] [address] [place] [address] ProviderEder MD [address], [place] [id number] Social History Tobacco Use Types Packs/Day Years [...] PRIEST PHARMACIST-MEDICATION RECON - 04/17/2020 11:35 EDT Electronically signed by Jimmy Feliciano Conversion Firestop/Containment Worker Josefa at 10/17/2022 6:03 PM CDT documented in this encounter Plan of Treatment Not on file documented as of this encounter Visit Diagnoses Not on filedocumented in this encounter
--- OUTSIDE RECORDS SUMMARY | 2025-03-24 16:47 | XMS_ITS | Clinical Summary ---
Author Organization [facility] Address [address] [place] [address] Care Team Providers Care Occupational Health Nursing Director Name Role Phone NoelBhumi Ny ASHRAF Primary Care Provider [phone] Allergies Active Allergy Reactions Criticality Noted Date [...] swallow. Active cholecalciferol (Vitamin D-3) 50 MCG (2000 UT) [...] crush, chew, or split. Active HYDROcodone-delgado taminophen (Wheelwright) 5-325 MG tablet Take 1 tablet by [...] if symptoms continue 1 each 5 Active Active Problems Problem Noted Date Diagnosed Date Abdominal pain, generalized 11/24/2024 Family History Medical History Relation Name Comments [...] money to buy more. Never true 11/26/19 Within the past 12 months, t he [...] any time in the past 12 m [facility], were you homeless or living in a residential (including now)? No 11/25/2024 Utilities Answer Date Recorded In the past 12 months has th e [employer], gas, oil, or water [employer] threatened to shut off services in your [...] Date Last Done Comments [facility]-Depression Screening 1975 [facility]-/Child/Adol SDOH Screenings 1974 [id number] Vaccine (#1) 1979 [facility]-DTaP,Tdap,and Td Vaccine s (1 - Tdap) 1993 [facility]-Hepatitis B Vaccines (1 of 3 - 19+ 3-dose series) 1993 CT Colonography 2019 Colonoscopy 2019 FIT 2019 FOBT 2019 Sigmoidoscopy 2019 [facility]-Breast Cancer Screening 2024 [facility]-Pneumococcal Vaccine: 50 + Years (1 of 1 - PCV) 2024 [facility]-Zoster Vaccines (1 of 2) 2024 [facility]-Influenza Vaccine (#1) 2025 [facility]- SDOH Screenings 05/28/2025 [facility]-Adult SDOH [...] Procedure Name Priority Date/Time Associated Diagnosis Comments HEPATITIS C ANTIBODY - ED W/REFLEX TO HCV QUANT PCR STAT 11/23/2024 12:36 AM EDT ED HIV 1/2 ANTIBODY/ANTIGEN SCREEN WITH REFLEX TO HIV I/II DIFFERENTIATION STAT 11/23/2024 12:36 AM EDT from Last 3 Months or Most Recently Relevant to Health Maintenance Results * ED HIV 1/2 Antibody/Antigen Screen w/Reflex to HIV 1/2 Differentiation (11/23/2024 12:36 AM EDT) HIV 1 & 2 Antibody/Antigen Screen Non Reactive Non Reactive 11/23/2024 1:41 AM EDT [facility] Comment:Screening for HIV 1 & 2 antibodies, and P24 antigen is NONREACTIVE. No confirmatory testing is required. Blood Venous blood specimen / Unknown Venipuncture / Unknown 11/23/2024 12:36 AM EDT 11/23/2024 1:03 AM EDT Rudy Desai MD LAB BLOOD ORDERABLES Final Re sult Performing Organization Address City/[facility]/ZIP Co de Phone Number [facility] [address] [place] [address] * Hepatitis C Antibody - ED (11/23/2024 12:36 AM EDT) Hepatitis C Antibody Negative Negative 11/23/2024 1:44 AM EDT [facility] Blood Venous blood specimen / Unknown Venipuncture / Unknown 11/23/2024 12:36 AM EDT 11/23/2024 1:03 AM EDT Rudy Desai MD LAB BLOOD ORDERABLES Final Re sult [facility] [address] [place] [address] from Last 3 Months or Most Recently Relevant to Health Maintenance Insurance [address] [place], [place] [address] [employer] [facility] MEDICAID Advance Directives * Full Code (Latest Code Status on File) Date Activated Date Inactivated Comments 11/23/2024 2:32 PM 11/26/2024 5:07 PM Question Answer Comments I have reviewed the capacity from the link above and, if needed, have updated to appropriate status: Yes Care Teams Occupational Health Nursing Director Relationship Specialty Start Date End Date Bhumi Cohen, [employer] [address] [place] [address] PCP - General 11/25/24
--- OUTSIDE RECORDS SUMMARY | 2025-03-24 16:47 | XMS_ITS | Encounter Summary ---
Author Organization [employer] ([place], [place], [place], [place]) Address [address] [place] [address] Care Team Providers Care Healthcare Architect Name Role Phone Unavailable Primary Care Provider Unavailabl e Encounter Details Date Type Department Care Team (Late st Contact Info) Description 04/17/2020 Transcribed Document [facility] [place] [address] [place] [address] ProviderEder MD [address] [place] [address] Social History Tobacco Use Types [...] Conversion Note - Eder ProviderMD - 04/17/2020 9:35 PM CDT Pain [...] the text rendition version of the form. Electronically signed by Jimmy Feliciano Conversion Chief Compressor Station Engineer Cerner at 10/18/2022 12:50 PM CDT documented in this encounter Plan of Treatment Not on file documented as of this encounter Visit Diagnoses Not on filedocumented in this encounter
--- OUTSIDE RECORDS SUMMARY | 2025-03-24 16:47 | XMS_ITS | Clinical Summary ---
Author Organization [employer] ([place], [place], [place], [place]) Address [address] [place] [address] Care Team Providers Care Regulatory Compliance Officer Name Role Phone Unavailable Primary Care Provider [...]
--- OUTSIDE RECORDS SUMMARY | 2025-03-24 16:47 | XMS_ITS | Clinical Summary ---
Author Organization [facility] Address [facility] [place] [address] Care Team Providers Care Game Artist Name Role Phone None Primary Care Provider Unavailabl e Social History Tobacco Use Types Packs/Day Years Used Date Smoking Tobacco: Never Assessed Comments Unknown Sex and Gender Information Value Date Recorded Sex Assigned at Not on file Legal Sex Female 4:39 PM EST Gender Identity Not on file Sexual Orientation Not on file Plan of Treatment Health Maintenance Due Date Last Done Comments Breast Cancer Screening 1974 CT Colonography 1974 Colonoscopy 1974 Colorectal Cancer Screening 1974 FIT-DNA 1974 FIT 1974 FOBT 1974 Sigmoidoscopy 1974 Hepatitis B (HepB) Vaccine ( 1 of 3 - 19+ 3-dose series) 1993 Tdap/Td Vaccine >11 yo (1 - Tdap) 1993 Cervical Cancer Screening 1995 Pneumococcal Vaccines >50 yo (1 of 1 - PCV) 2024 Shingles (Shingrix) (1 of 2) 2024 Annual SDOH Screening 06/30/2024 Influenza Vaccine (#1) 2025 RSV 50+ and (1 - 1 -dose 75+ series) 2049 Haemophilus Influenzae Type B (Hib) Vaccine Aged Out No longer eligible b ased on patient's age to complete this topic Hepatitis A (HepA) Vaccine Aged Out N o longer eligible based on patient's age to complete this topic Meningococcal ACWY Aged Out No longer eligible based on patient's age to complete this topic Polio (IPV) Aged Out No longer eligi ble based on patient's age to complete this topic Rotavirus (RV) Vaccine Aged Out No lo nger eligible based on patient's age to complete this topic Care Teams Game Artist Relationship Specialty Start Date End Date None PCP - General 01/16/08
--- NOTE | 2025-03-24 16:51 | CT_ITS ---
PROCEDURE INFORMATION: Exam: CT Head Without Contrast Exam date and time: 03/24/2025 5:24 PM Age: 49 years old Clinical indication: Injury or trauma; Fall; Blunt trauma (contusions or hematomas); Additional info: Headache TECHNIQUE: Imaging protocol: Computed tomography of the head without contrast. Radiation optimization: All CT scans at this facility use at least one of these dose optimization techniques: automated exposure control; mA and/or kV adjustment per patient size (includes targeted exams where dose is matched to clinical indication); or iterative reconstruction. COMPARISON: CT HEAD/BRAIN WO CON 09/01/2024 4:58 PM FINDINGS: Brain: No acute intracranial hemorrhage, midline shift, or mass effect. Cerebral ventricles: No ventriculomegaly. Paranasal sinuses: Visualized sinuses are unremarkable. No fluid levels. Mastoid air cells: Visualized mastoid air cells are well aerated. Bones: Unremarkable. No acute fracture. Soft tissues: Unremarkable. IMPRESSION: No acute intracranial findings.
--- NOTE | 2025-03-24 16:51 | CT_ITS ---
PROCEDURE INFORMATION: Exam: CT Cervical Spine Without Contrast Exam date and time: 03/24/2025 5:26 PM Age: 49 years old Clinical indication: Injury or trauma; Fall; Blunt trauma; Additional info: Neck pain TECHNIQUE: Imaging protocol: Computed tomography of the cervical spine without contrast. Radiation optimization: All CT scans at this facility use at least one of these dose optimization techniques: automated exposure control; mA and/or kV adjustment per patient size (includes targeted exams where dose is matched to clinical indication); or iterative reconstruction. COMPARISON: CT CERVICAL SPINE WO CON 04/05/2022 8:58 PM FINDINGS: Bones: Postsurgical changes of C5-C7 anterior cervical discectomy and fusion. Removal of surgical hardware in the C5 vertebral body. Cervical vertebrae normal in height. No acute fracture. Mild levoconvex curvature of the thoracolumbar junction. Reversal of normal cervical lordosis. Maintained craniocervical junction. Multilevel degenerative changes. No severe neural foraminal narrowing or spinal canal stenosis. Lungs: Mild biapical emphysema and parenchymal scarring. Soft tissues: Unremarkable. IMPRESSION: No acute osseous findings.
--- NOTE | 2025-03-24 16:51 | CT_ITS ---
PROCEDURE INFORMATION: Exam: CT Thoracic Spine Without Contrast Exam date and time: 03/24/2025 5:28 PM Age: 49 years old Clinical indication: Pain in thoracic spine; Additional info: Back pain TECHNIQUE: Imaging protocol: Computed tomography of the thoracic spine without contrast. Radiation optimization: All CT scans at this facility use at least one of these dose optimization techniques: automated exposure control; mA and/or kV adjustment per patient size (includes targeted exams where dose is matched to clinical indication); or iterative reconstruction. COMPARISON: CR XR THORACIC SPINE 3V 04/29/2024 4:02 PM FINDINGS: Bones/joints: Mild loss of intervertebral disc space with degenerative changes involving T4 through T7. The vertebral bodies are maintained in height and alignment. No evidence of acute osseous abnormality. Soft tissues: Unremarkable. IMPRESSION: No evidence of acute osseous abnormality.
--- NOTE | 2025-03-24 16:51 | CT_ITS ---
PROCEDURE INFORMATION: Exam: CT Lumbar Spine Without Contrast Exam date and time: 03/24/2025 5:31 PM Age: 49 years old Clinical indication: Low back pain TECHNIQUE: Imaging protocol: Computed tomography of the lumbar spine without contrast. Radiation optimization: All CT scans at this facility use at least one of these dose optimization techniques: automated exposure control; mA and/or kV adjustment per patient size (includes targeted exams where dose is matched to clinical indication); or iterative reconstruction. COMPARISON: MR LUMBAR SPINE WO CON 12/17/2023 3:42 PM FINDINGS: Bones/joints: Mild loss of intervertebral disc space with degenerative changes involving L3 through L5. The vertebral bodies are maintained in height and alignment. No evidence of acute osseous abnormality. Soft tissues: Unremarkable. IMPRESSION: No evidence of acute osseous abnormality.
--- NOTE | 2025-03-24 16:52 | CT_ITS ---
PROCEDURE INFORMATION: Exam: CT Pelvis Without Contrast, Skeleton Exam date and time: 03/24/2025 5:34 PM Age: 49 years old Clinical indication: Injury or trauma; Fall; Blunt trauma (contusions or hematomas); Bilateral; Pelvic region TECHNIQUE: Imaging protocol: Computed tomography of the pelvis without contrast. Exam focused on the skeleton. Radiation optimization: All CT scans at this facility use at least one of these dose optimization techniques: automated exposure control; mA and/or kV adjustment per patient size (includes targeted exams where dose is matched to clinical indication); or iterative reconstruction. COMPARISON: CT ABDOMEN PELVIS W CON 11/19/2024 11:54 PM FINDINGS: Bones/joints: Unremarkable. No acute fracture. No dislocation. Soft tissues: Unremarkable. IMPRESSION: No acute findings.
--- NOTE | 2025-03-24 16:54 | ED_ITS ---
Discharge Plan Disposition Patient Disposition: Home, Self-Care Prescriptions Prescriptions: No Action rizatriptan [Maxalt-SOCIAL MEDIA STRATEGIST] 10 mg tablet,disintegrating See Rx Instructions PO .COMPLEX Qty: 30 0RF Rx Instructions: take 1 tab at onset of headache; if no relief may repeat 1 tab after at least 2 hrs; max = 3 tabs/24 hr PO meloxicam 7.5 mg tablet 7.5 mg PO DAILY Qty: 30 2RF diclofenac sodium [Voltaren Arthritis Pain] 1 % gel 4 g topical QID Qty: 100 2RF Rx Instructions: apply to single knee, ankle, foot; for foot includes sole/toes/top of foot lidocaine [Aspercreme (lidocaine)] 4 % adhesive patch,medicated 1 patch topical DAILY PRN (Reason: pain) Qty: 30 0RF divalproex 250 mg tablet,delayed release (DR/EC) 500 mg PO HS Qty: 60 11RF Rx Instructions: TAKE TWO TABLETS BY MOUTH EVERY DAY AT BEDTIME FOR seizures naloxone [Narcan] 4 mg/actuation spray,non-aerosol 1 spray intranasal Q3M PRN (Reason: opioid overdose) Qty: 2 0RF Rx Instructions: spray 1 dose into ONE nostril; alternate nostrils w each dose until help arrives albuterol sulfate 90 mcg/actuation aerosol powdr breath activated 2 inh inhalation Q6H PRN (Reason: shortness of breath or wheezing) Qty: 1 2RF cyanocobalamin (vitamin B-12) 1,000 mcg tablet 1,000 mcg PO DAILY Qty: 90 3RF cholecalciferol (vitamin D3) 50 mcg (2,000 unit) capsule 50 mcg PO DAILY Qty: 90 3RF meclizine 12.5 mg tablet See Rx Instructions .ROUTE .COMPLEX Qty: 90 0RF Dose Instruction: TAKE ONE TABLET BY MOUTH THREE TIMES DAILY NEEDED FOR dizziness Rx Instructions: TAKE ONE TABLET BY MOUTH THREE TIMES DAILY NEEDED FOR dizziness desvenlafaxine succinate 25 mg tablet extended release 24 hr 25 mg PO DAILY Qty: 30 2RF Rx Instructions: Take with a 50mg tablet for a total of 75mg daily. desvenlafaxine succinate 50 mg tablet extended release 24 hr 50 mg PO DAILY Qty: 30 2RF Rx Instructions: Take with a 25mg tablet for a total of 75mg daily. quetiapine 100 mg tablet 50 mg PO HS PRN (Reason: as needed) Qty: 30 2RF diazepam 5 mg tablet 5 mg PO HS PRN (Reason: anxiety) Qty: 30 0RF budesonide-formoterol 160-4.5 mcg/actuation HFA aerosol inhaler 1 inh inhalation BID Qty: 10.2 2RF ipratropium-albuterol 0.5 mg-3 mg(2.5 mg base)/3 mL solution for nebulization 3 ml inhalation Q6H PRN (Reason: wheezing) Qty: 180 1RF Referrals Follow up/Referrals: Hattie Diaz MD [Staff Physician, Neurology] - See instructions Provider,Ayan, [Primary Care Provider, Medical] - See instructions Activity Restrictions/Add. Instructions Additional Instructions/Restrictions: Please follow-up with your neurologist or Dr. Diaz as listed above. All your scans for okay today. Please follow also with your primary care physician. Clinical Impressions Clinical Impression: Seizure Instructions Patient Instructions: DI for Seizure (Not Epilepsy/Seizure Disorder) Print Language Print Language: Indonesian Discharge ED Provider: Ilan Nguyen General Adult HPI <Breanne Orantes (ED), CHECKER CASHIER - Last Filed: 03/24/25 22:10> General Chief complaint: Seizure Stated complaint: Seizure Time Seen by Provider: 03/24/25 16:40 Mode of Arrival: EMS History of Present Illness HPI narrative: 49-year-old female presents via EMS after her dog woke her up after she had a seizure today. Her dog is a service dog for this purpose. Patient woke up on the floor with neck pain mid and low back pain. Patient does have history of seizures and takes Depakote. She was having a headache yesterday and saw her PCP. According to EMS patient was alert and oriented x 4 complaining of neck and back pain. EMS placed a c-collar and patient placed her on a backboard before arrival to the ED. Upon arrival to the ED patient still alert and oriented x 4. She is slow to answer questions but still answering appropriately. Patient's pupil's equal and reactive. Patient removed from the backboard. Patient continues to complain of back and neck pain. I discussed this with Dr Nguyen And we developed a plan to scan patient head, neck and full back and pelvis scans as she was found on the floor. Related Data Previous Rx's ?Medication ?Instructions ?Recorded albuterol sulfate 90 mcg/actuation 2 inh inhalation Q6 H PRN shortness 08/29/23 breath activated powder inhaler of breath or wheezing #1 ea budesonide-formoterol HFA 160 1 inh inhalation BID #10 .2 grams 11/21/23 mcg-4.5 mcg/actuation aerosol inhaler ipratropium 0.5 mg-albuterol 3 mg 3 ml inhalation Q6H PRN wheezing 11/21/23 (2.5 mg base)/3 mL nebulization #180 mL soln rizatriptan 10 mg disintegrating See Rx Instructions P O .COMPLEX 03/02/24 tablet (Maxalt-SOCIAL MEDIA STRATEGIST) #30 tabs diclofenac sodium 1 % topical gel 4 g topical QID #100 grams 04/29/24 (Voltaren Arthritis Pain) lidocaine 4 % topical patch 1 patch topical DAILY PRN pain #30 04/29/24 (Aspercreme (lidocaine)) ea cholecalciferol (vitamin D3) 50 50 mcg PO DAILY #90 ca ps 06/11/24 mcg (2,000 unit) capsule cyanocobalamin (vitamin B-12) 1,000 mcg PO DAILY #90 t abs 06/11/24 1,000 mcg tablet naloxone 4 mg/actuation nasal 1 spray intranasal Q3M P RN opioid 10/01/24 spray (Narcan) overdose #2 ea divalproex 250 mg tablet,delayed 500 mg (2 x 250 mg) P O HS #60 tabs 10/27/24 release meclizine 12.5 mg tablet See Rx Instructions .Route 0 01/08/25 .COMPLEX #90 ea desvenlafaxine succinate 25 mg 25 mg PO DAILY #30 tabs 02/01/25 tablet,extended release 24 hr desvenlafaxine succinate 50 mg 50 mg PO DAILY #30 tabs 02/01/25 tablet,extended release 24 hr quetiapine 100 mg tablet 50 mg (1/2 x 100 mg) PO HS P RN as 02/01/25 needed #30 tabs diazepam 5 mg tablet 5 mg PO HS PRN anxiety #30 t abs 02/24/25 meloxicam 7.5 mg tablet 7.5 mg PO DAILY #30 tabs Allergies Allergy/AdvReac Type Severity Reaction Status Date / Time nitrous oxide Allergy Severe Unknown Verified 03/23/25 14:32 allergy reaction prednisone Allergy Mild shortness Verified 03/23/25 14:32 of breath codeine (CODEINE) Allergy Unknown Unknown Verified 03/23/25 14:32 allergy reaction fluoxetine (From PROZAC) Allergy Unknown Unknown Verified 03/23/25 14:32 allergy reaction ibuprofen (IBUPROFEN) Allergy Unknown Unknown Verified 03/23/25 14:32 allergy reaction latex (LATEX) Allergy Unknown Unknown Verified 03/23/25 14:32 allergy reaction loratadine (From CLARITIN) Allergy Unknown Unknown Verified 03/23/25 14:32 allergy reaction magnesium (MAGNESIUM) Allergy Unknown Unknown Verified 03/23/25 14:32 allergy reaction nitrofurantoin Allergy Unknown Unknown Verified 03/23/25 14:32 (NITROFURANTOIN) allergy reaction oxycodone (OXYCODONE) Allergy Unknown Unknown Verified 03/23/25 14:32 allergy reaction risperidone Allergy Unknown Unknown Verified 03/23/25 14:32 allergy reaction sumatriptan (SUMATRIPTAN) Allergy Unknown Unknown Verified 03/23/25 14:32 allergy reaction tramadol (TRAMADOL) Allergy Unknown Unknown Verified 03/23/25 14:32 allergy reaction trazodone (TRAZODONE) Allergy Unknown Altered Verified 03/23/25 14:32 Sense of Taste duloxetine Allergy Unknown Verified 03/23/25 14:32 allergy reaction metronidazole (From Flagyl) Allergy Hallucinati Verified 03/23/25 14:32 ons [facility] <Breanne Orantes (ED), CHECKER CASHIER - Last Filed: 03/24/25 22:10> [facility] Disclaimer: The information contained in this section may have been updated after the patient was seen, as this information can be updated by other users. Medical History (Updated 03/24/25 @ 20:21 by Breanne Orantes (ED), CHECKER CASHIER) Skin lesions Lumbar radiculopathy Benzodiazepine withdrawal Urinary tract infection symptoms Nerve pain Cervical radicular pain Sciatica Nightmares associated with chronic post-traumatic stress disorder Left leg pain Spell of altered consciousness Fall Urinary symptom or sign Dizziness Dizziness Hypokalemia Anxiety Skin lesions, generalized Abnormal electrocardiogram [ECG] [EKG] Dyspnea Depression Strep pharyngitis Complete miscarriage Acute pain of left knee Arm pain, left Swelling of labia Allergic reaction caused by a drug UTI (urinary tract infection) No significant past medical history Rash and nonspecific skin eruption Generalized seizure COVID-19 Vomiting Headache Gastroenteritis Pharyngitis Exposure to COVID-19 virus Viral syndrome Chronic lumbar pain COPD exacerbation Strain of lumbar region Concussion Fall Seizure Medication reaction Lower extremity pain Functional abdominal pain syndrome Neck Pain Elbow pain Anxiety Cervical strain Acute bronchitis Bronchitis Surgical History History of kidney surgery History of D&C H/O: History of appendectomy History of partial hysterectomy H/O cervical spine surgery Family History Other Cancer Diabetes Heart attack Hypertension Stroke Social History Smoking Status: Never smoker smoking status stop date: 2015 alcohol intake: never substance use type: denies use current occupational status: other Travel in the last 8 weeks?: None household members: none housing: other Have you lived/traveled outside [place] in past 30 days?: No Contact w/someone who lives/traveled outside US past 30 days?: No Exposure to someone with infectious disease in past 14 days?: No Do you have a fever (greater than 100.4 F or 38 C)?: No Have you tested positive for COVID-19?: No Exposed to someone with COVID-19 in past 14 days?: No Do you have a sore throat?: No Do you have a cough?: No Do you have any weakness?: No Do you have any diarrhea?: No Are you experiencing any unusual bleeding?: No Do you have any muscle aches/pain?: No Do you have any abdominal pain?: No Are you experiencing loss of taste or smell?: No Other Medical History Have you received the Flu Vaccine for this season: No Have you received the Pneumonia Vaccine: Yes <Breanne Orantes (ED), CHECKER CASHIER - Last Filed: 03/24/25 22:10> ROS Obtained: Yes Systems reviewed as appropriate & no additional complaints except as documented Constitutional Constitutional: Reports as per HPI Physical Exam <Breanne Orantes (ED), CHECKER CASHIER - Last Filed: 03/24/25 22:10> General General appearance: alert Head Head exam: atraumatic and normocephalic Eye Eye exam: Present PERRL and EOMI ENT ENT exam: Present normal oropharynx and mucous membranes moist Neck Neck exam: Present trachea midline and other (Patient in c-collar) Respiratory Respiratory exam: Present normal lung sounds bilaterally Cardiovascular Cardiovascular exam: Present regular rate, normal rhythm, normal heart sounds, +S1 and +S2 Abdominal Exam Abdominal exam: Present soft and normal bowel sounds Extremities Exam Extremities exam: Present normal inspection, full ROM and normal capillary refill Back Exam Back exam: Present normal inspection and other (on back board) Neurological Exam Neurological exam: Present alert and oriented X3 Skin Skin exam: Present warm, dry and intact Medical Decision Making <Breanne Orantes (ED), CHECKER CASHIER - Last Filed: 03/24/25 22:10> Medical Records Screening: Per USPSTF and CDC recommendations, given the prevalence of disease in our region, it is our hospital?s policy to screen for HIV and viral Hepatitis for all patients aged 18 and over and those with ongoing risk factors. Darrius Inquiry Pt receiving controlled substance: No Darrius was queried for this patient: No Vital Signs: 03/24/25 16:55 03/24/25 17:00 03/24/25 18:00 Temperature 97.6 F Temperature Source Oral Pulse Rate 80 79 Pulse Rate [Right Radial] 86 Respiratory Rate 16 17 20 Blood Pressure 151/81 H 156/89 H Blood Pressure [Right Arm] 152/81 H Blood Pressure Mean 108 Blood Pressure Mean [Right Arm] 104 Blood Pressure Source [Right Arm] Automatic Cuff Blood Pressure Position [Right Arm] Sitting 02 Sat by Pulse Oximetry 98 100 100 Oxygen Delivery Method Room Air 03/24/25 18:52 03/24/25 19:00 03/24/25 19:30 Temperature Temperature Source Pulse Rate 82 69 67 Pulse Rate [Right Radial] Respiratory Rate 17 17 18 Blood Pressure 137/88 150/78 H 139/77 Blood Pressure [Right Arm] Blood Pressure Mean 114 102 104 Blood Pressure Mean [Right Arm] Blood Pressure Source [Right Arm] Blood Pressure Position [Right Arm] 02 Sat by Pulse Oximetry 99 99 99 Oxygen Delivery Method 03/24/25 20:30 Temperature 98.3 F Temperature Source Oral Pulse Rate 76 Pulse Rate [Right Radial] Respiratory Rate 16 Blood Pressure 138/79 Blood Pressure [Right Arm] Blood Pressure Mean Blood Pressure Mean [Right Arm] Blood Pressure Source [Right Arm] Blood Pressure Position [Right Arm] 02 Sat by Pulse Oximetry Oxygen Delivery Method Room Air Lab Data Lab Results 03/24/25 16:55: WBC 7.7, RBC 4.32, Hgb 13.7, Hct 39.6, MCV 91.7, MCH 31.7 H, MCHC 34.6, RDW 12.1, Plt Count 270, MPV 10.6 H, Neut % (Auto) 51.8, Lymph % (Auto) 39.0, [place] % (Auto) 5.1, Eos % (Auto) 2.6, Baso % (Auto) 0.5, Neut # (Auto) 4.0, Lymph # (Auto) 3.0, [place] # (Auto) 0.4, Eos # (Auto) 0.2, Baso # (Auto) 0.0, Sodium 137, Potassium 4.1, Chloride 100, Carbon Dioxide 30, Anion Gap 11.1, BUN 12, Creatinine 0.70, Estimated Creat Clear 100, Estimated GFR 89, Est GFR ( Amer) 107, Glucose 113 H, Calcium 9.3, Magnesium 1.7, Total Bilirubin 0.4, AST 29, ALT 19, Alkaline Phosphatase 83, Troponin I < 0.01, Total Protein 7.2, Albumin 4.0, Globulin 3.2, Albumin/Globulin Ratio 1.3, Lipase 57 03/24/25 18:34: Lactate 1.8 03/24/25 19:10: Urine Color Yellow, Urine Appearance Clear, Urine pH 6.0, Ur Specific [place] 1.010, Urine Protein Negative, Urine Glucose (UA) Negative, Urine Ketones Negative, Urine Blood Negative, Urine Nitrate Negative, Urine Bilirubin Negative, Urine Urobilinogen 0.2, Ur Leukocyte Esterase Negative, Urine RBC None, Urine WBC 5-10, Ur Squamous Epith Cells 5-10, Urine Bacteria 4+ 03/24/25 16:55 03/24/25 16:55 Orders (Tests/Meds): ED MEDICATIONS Discontinued Medications Generic Name Dose Route Start Last Admin Trade Name Freq PRN Reason Stop Dose Admin Diphenhydramine HCl 25 mg 03/24/25 18:42 03/24/25 18:49 Diphenhydramine 50mg/Ml Vial IV 03/24/25 18:43 25 mg ONCE ONE Administration Sodium Chloride 1,000 mls @ 999 mls/hr 03/24/25 16:57 03/24/25 19:00 Sod Chlor 0.9% 1000ml Bag IV 03/24/25 17:57 Infused .Q1H1M ONE Infusion Prochlorperazine Edisylate 2.5 mg 03/24/25 18:42 03/24/25 18:49 Prochlorperazine 10mg/2ml Vial IV 03/24/25 18:43 2.5 mg ONCE ONE Administration ORDERS Category Date Time Status CT bony pelvis Stat Cat Scan 03/24/25 16:[address] cervical spine wo con Stat Cat Scan 03/24/25 16:[address] head/brain wo con Stat Cat Scan 03/24/25 16:[address] lumbar spine wo con Stat Cat Scan 03/24/25 16:[address] thoracic spine wo con Stat Cat Scan 03/24/25 16:51 Completed CBC [Complete Blood Count Auto Diff] Stat Lab 03/24/25 16:55 Completed Comprehensive Metabolic Panel Stat Lab 03/24/25 16:55 Completed Lactic Acid Stat Lab 03/24/25 18:34 Completed Lipase Stat Lab 03/24/25 16:55 Completed Magnesium Stat Lab 03/24/25 16:55 Completed Trop I [Troponin I] Stat Lab 03/24/25 16:55 Completed Urinalysis and Microscopic Stat Lab 03/24/25 19:10 Completed Urine Culture Stat Micro 03/24/25 19:10 Received Medical Decision Narrative: patient is a 49-year-old female presenting to the emergency department for evaluation of seizure and possible fall. Patient is hemodynamically stable and nontoxic-appearing upon arrival, afebrile. Differential diagnosis includes seizure, fractures to neck or back versus sprain or strains. Workup will be conducted with hematologic labs, specific imaging, provocative tests. Initial inventions include crystalloid bolus, analgesics. Initial workup reviewed by ks labs are nonactionable. All CT scans came back as nothing acute. Discussed with patient that her CT scans were all okay. Urinalysis was okay. Patient does feel improved and wants to go home. Patient safe for discharge home. She is calling a ride. <Ilan Nguyen MD - Last Filed: 03/24/25 17:33> Vital Signs: 03/24/25 16:55 03/24/25 17:00 03/24/25 18:00 Temperature 97.6 F Temperature Source Oral Pulse Rate 80 79 Pulse Rate [Right Radial] 86 Respiratory Rate 16 17 20 Blood Pressure 151/81 H 156/89 H Blood Pressure [Right Arm] 152/81 H Blood Pressure Mean 108 Blood Pressure Mean [Right Arm] 104 Blood Pressure Source [Right Arm] Automatic Cuff Blood Pressure Position [Right Arm] Sitting 02 Sat by Pulse Oximetry 98 100 100 Oxygen Delivery Method Room Air 03/24/25 18:52 03/24/25 19:00 03/24/25 19:30 Temperature Temperature Source Pulse Rate 82 69 67 Pulse Rate [Right Radial] Respiratory Rate 17 17 18 Blood Pressure 137/88 150/78 H 139/77 Blood Pressure [Right Arm] Blood Pressure Mean 114 102 104 Blood Pressure Mean [Right Arm] Blood Pressure Source [Right Arm] Blood Pressure Position [Right Arm] 02 Sat by Pulse Oximetry 99 99 99 Oxygen Delivery Method 03/24/25 20:30 Temperature 98.3 F Temperature Source Oral Pulse Rate 76 Pulse Rate [Right Radial] Respiratory Rate 16 Blood Pressure 138/79 Blood Pressure [Right Arm] Blood Pressure Mean Blood Pressure Mean [Right Arm] Blood Pressure Source [Right Arm] Blood Pressure Position [Right Arm] 02 Sat by Pulse Oximetry Oxygen Delivery Method Room Air Lab Data Lab Results 03/24/25 16:55: WBC 7.7, RBC 4.32, Hgb 13.7, Hct 39.6, MCV 91.7, MCH 31.7 H, MCHC 34.6, RDW 12.1, Plt Count 270, MPV 10.6 H, Neut % (Auto) 51.8, Lymph % (Auto) 39.0, [place] % (Auto) 5.1, Eos % (Auto) 2.6, Baso % (Auto) 0.5, Neut # (Auto) 4.0, Lymph # (Auto) 3.0, [place] # (Auto) 0.4, Eos # (Auto) 0.2, Baso # (Auto) 0.0, Sodium 137, Potassium 4.1, Chloride 100, Carbon Dioxide 30, Anion Gap 11.1, BUN 12, Creatinine 0.70, Estimated Creat Clear 100, Estimated GFR 89, Est GFR ( Amer) 107, Glucose 113 H, Calcium 9.3, Magnesium 1.7, Total Bilirubin 0.4, AST 29, ALT 19, Alkaline Phosphatase 83, Troponin I < 0.01, Total Protein 7.2, Albumin 4.0, Globulin 3.2, Albumin/Globulin Ratio 1.3, Lipase 57 03/24/25 18:34: Lactate 1.8 03/24/25 19:10: Urine Color Yellow, Urine Appearance Clear, Urine pH 6.0, Ur Specific [place] 1.010, Urine Protein Negative, Urine Glucose (UA) Negative, Urine Ketones Negative, Urine Blood Negative, Urine Nitrate Negative, Urine Bilirubin Negative, Urine Urobilinogen 0.2, Ur Leukocyte Esterase Negative, Urine RBC None, Urine WBC 5-10, Ur Squamous Epith Cells 5-10, Urine Bacteria 4+ Orders (Tests/Meds): ED MEDICATIONS Discontinued Medications Generic Name Dose Route Start Last Admin Trade Name Freq PRN Reason Stop Dose Admin Diphenhydramine HCl 25 mg 03/24/25 18:42 03/24/25 18:49 Diphenhydramine 50mg/Ml Vial IV 03/24/25 18:43 25 mg ONCE ONE Administration Sodium Chloride 1,000 mls @ 999 mls/hr 03/24/25 16:57 03/24/25 19:00 Sod Chlor 0.9% 1000ml Bag IV 03/24/25 17:57 Infused .Q1H1M ONE Infusion Prochlorperazine Edisylate 2.5 mg 03/24/25 18:42 03/24/25 18:49 Prochlorperazine 10mg/2ml Vial IV 03/24/25 18:43 2.5 mg ONCE ONE Administration ORDERS Category Date Time Status CT bony pelvis Stat Cat Scan 03/24/25 16:[address] cervical spine wo con Stat Cat Scan 03/24/25 16:[address] head/brain wo con Stat Cat Scan 03/24/25 16:[address] lumbar spine wo con Stat Cat Scan 03/24/25 16:[address] thoracic spine wo con Stat Cat Scan 03/24/25 16:51 Completed CBC [Complete Blood Count Auto Diff] Stat Lab 03/24/25 16:55 Completed Comprehensive Metabolic Panel Stat Lab 03/24/25 16:55 Completed Lactic Acid Stat Lab 03/24/25 18:34 Completed Lipase Stat Lab 03/24/25 16:55 Completed Magnesium Stat Lab 03/24/25 16:55 Completed Trop I [Troponin I] Stat Lab 03/24/25 16:55 Completed Urinalysis and Microscopic Stat Lab 03/24/25 19:10 Completed Urine Culture Stat Micro 03/24/25 19:10 Received ECG Data Tracing #1: I reviewed this ECG and interpreted as documented below: Normal sinus rhythm. No ST elevation or depression. QTc normal at 404 Critical Care <Breanne Orantes (ED), CHECKER CASHIER - Last Filed: 03/24/25 22:10> Critical Care Time Critical Care Time: No
[2025-03-24 17:07] LABS: Hematocrit 39.6 % (37.0-47.0); Hemoglobin 13.7 g/dL (12.2-16.2); Immature Granulocytes % 1.0 %; Mean Corpuscular HGB Conc 34.6 g/dL (31.8-35.4); Mean Corpuscular Hemoglobin 31.7 pg (27.0-31.2); Mean Corpuscular Volume 91.7 fl (81-99); Nucleated Red Blood Cells % 0 %; Platelet Count 270 K/mm3 (142-424); Red Blood Count 4.32 M/mm3 (4.20-5.40); Red Cell Distribution Width-SD 40.6 fL; White Blood Count 7.7 K/mm3 (4.8-10.8)
[2025-03-24 17:22] LABS: Albumin Level 4.0 g/dl (3.5-5.0); Chloride 100 mmol/L (98-107); Potassium 4.1 mmoL/L (3.5-5.1); Sodium 137 mmol/L (136-145)
--- NOTE | 2025-03-24 17:23 | PC.NURSE ---
BACK BOARD REMOVED FROM PT PER MARIBELL GARCIA REQUEST.
[2025-03-24 17:25] LABS: Alanine Aminotransferase 19 U/L (12-78); Albumin/Globulin Ratio 1.3 (1.1-1.8); Alkaline Phosphatase 83 U/L (38-126); Anion Gap 11.1 mEq/L (5-15); Aspartate Amino Transferase 29 U/L (14-36); Bilirubin,Total 0.4 mg/dl (0.2-1.3); Blood Urea Nitrogen 12 mg/dl (7-17); Calcium 9.3 mg/dl (8.4-10.2); Carbon Dioxide 30 mmol/L (22.0-30.0); Creatinine Clearance Estimated 100 mL/min (50-200); Creatinine,Serum 0.70 mg/dl (0.52-1.04); Estimated Glomerular Filt Rate 89 ml/min (>60); GFR (African American) 107 ML/MIN (>60); Globulin 3.2 g/dL (1.3-3.2); Glucose 113 mg/dl (74-100); Lipase 57 U/L (23-300); Magnesium 1.7 mg/dl (1.6-2.3); Total Protein,Serum 7.2 g/dl (6.3-8.2)
[2025-03-24 17:41] LABS: Troponin I < 0.01 ng/ml (0.00-0.034)
[2025-03-24] MEDS: 0.9 % SODIUM CHLORIDE 1000ML 1,000 ML 999 ML IV (17:58)
[2025-03-24] MEDS: PROCHLORPERAZINE 10MG/2ML VIAL 2.5 MG IV (18:49)
[2025-03-24 19:19] LABS: Microscopic, Urine URINE MICROSCOPIC (MICROSCOPIC)
[2025-03-24 19:22] LABS: Bilirubin,Urine Negative (Negative); Color,Urine YELLOW (Yellow); Glucose,Urine (UA) Negative (Negative); Ketones,Urine Negative (Negative); Leukocyte Esterase,Urine Negative (Negative); PH,Urine 6.0 (5.0-8.5); Protein,Urine Negative (Negative); Specific Gravity, Urine 1.010 (1.005-1.030); Urobilinogen,Urine 0.2 EU/dl (0.2)
[2025-03-24 19:58] LABS: Bacteria,Urine 4+ /lpf
== END 2025-03-24 20:32 | disposition home or self-care (01) ==
PROVIDERS: Nurse Practitioner; Emergency Provider Student in an Organized Health Care Education/Training Program
DX: G40.909 Epilepsy, unspecified, not intractable, without status epilepticus (principal); M54.2 Cervicalgia; M54.6 Pain in thoracic spine
CPT/HCPCS: 70450; 72125; 72128; 72131; 72192; 80053; 81001; 83605; 83690; 83735; 84484; 85025; 87086; 93005; 96361; 96374; 96375; 99285; J0780; J1200; J7030

== ENCOUNTER 2025-03-31 08:31 | Day surgery (SDC) | payer OTHER, SELFPAY ==
[2025-03-30 14:36] VITALS: BMI 25.8
[2025-03-31 09:06] VITALS: BP 120/65; PULSE 74; RESP 16; TEMP 36.7; O2SAT 98
[2025-03-31] MEDS: LIDOCAINE 1% 20ML MDV 20 ML (10:50)
--- NOTE | 2025-03-31 11:22 | EXP.OP.NOTE ---
Date of procedure: 03/31/25 Pre-op Diagnosis:: Right axillary skin lesion/nodule (6 mm) Post-op Diagnosis:: Same Procedure performed:: Excision of 6 mm right axillary skin lesion/nodule Surgeon:: Ronal Ochoa MD Anesthesia: local Estimated blood loss (mL): 5 Operative findings:: Lesion excised in toto Operative note:: The patient was taken to the procedure room. Her right axillary region was prepped and draped in a sterile fashion. After infiltration with local anesthetic an elliptical incision was made around the lesion. The lesion was sharply excised in toto and passed off for pathologic evaluation. Thermal cautery was utilized to achieve hemostasis. Skin was reapproximated with 4-0 nylon in an interrupted mattress fashion. Dressings were applied and the patient was discharged home in stable condition. Condition: stable Disposition: no change Specimens:: Right axillary skin lesion/nodule Complications:: No immediate
[2025-03-31 11:25] VITALS: BP 137/86; PULSE 70; RESP 20; TEMP 36.4; O2SAT 99
== END 2025-03-31 11:45 | disposition home or self-care (01) ==
PROVIDERS: PCP Internal Medicine; Visit Provider Surgery
PROC: (CPT 11200; principal; 2025-03-31 10:15)
DX: D17.21 Benign lipomatous neoplasm of skin and subcutaneous tissue of right arm (principal); J44.1 Chronic obstructive pulmonary disease with (acute) exacerbation; Z88.6 Allergy status to analgesic agent; Z88.8 Allergy status to other drugs, medicaments and biological substances; Z88.3 Allergy status to other anti-infective agents; Z88.5 Allergy status to narcotic agent; Z87.891 Personal history of nicotine dependence
CPT/HCPCS: 11200; J2003

== ENCOUNTER 2025-04-06 14:35 | Outpatient (CLI) | payer OTHER, SELFPAY ==
--- NOTE | 2025-04-06 14:38 | XR_ITS ---
FINAL REPORT CLINICAL HISTORY: left hand middle finger, pain after fall COMPARISON: 04/05/2022 FINDINGS: AP, oblique, and lateral views of the left hand were obtained. There is no acute fracture of the left hand. The joint spaces are preserved. The soft tissues are normal. IMPRESSION: No acute osseous abnormality of the left hand. Reviewed, Interpreted and Dictated by Isis Jiménez MD Transcribed by Cinthia White Authenticated and [facility]
--- NOTE | 2025-04-06 14:38 | XR_ITS ---
FINAL REPORT CLINICAL HISTORY: left knee injury, fall FINDINGS: AP, lateral and oblique views of the left knee were obtained. There is no prior exam for comparison. There is no acute osseous abnormality of the left knee. The joint space is preserved. The soft tissues are normal. There is no joint effusion. IMPRESSION: No acute osseous abnormality of the left knee. Reviewed, Interpreted and Dictated by Isis Jiménez MD Transcribed by Cinthia White Authenticated and [facility]
== END 2025-04-06 23:59 | disposition home or self-care (01) ==
LOC: RAD 14:36
PROVIDERS: PCP Internal Medicine; Visit Provider Physician Assistant
DX: S89.92XA Unspecified injury of left lower leg, initial encounter (principal); S69.92XA Unspecified injury of left wrist, hand and finger(s), initial encounter; W19.XXXA Unspecified fall, initial encounter; M25.562 Pain in left knee
CPT/HCPCS: 73130; 73562

== ENCOUNTER 2025-05-01 11:58 | Emergency (ER) | payer OTHER, SELFPAY ==
[2025-05-01] VITALS (7 sets, daily range): BP systolic 106–147; BP diastolic 70–90; PULSE 65–82; RESP 20–22; TEMP 36.6–36.8; O2SAT 96–100; BMI 26.0
--- OUTSIDE RECORDS SUMMARY | 2025-05-01 12:10 | XMS_ITS | Encounter Summary ---
Author Organization [employer] ([place], [place], [place], [place], [place]) Address [address] [place] [address] Care Team Providers Care Fare Enforcement Officer Name Role Phone Unavailable Primary Care Provider Unavailabl e Encounter Details Date Type Department Care Team (Late st Contact Info) Description 04/19/2020 Transcribed Document [facility] [place] [address] [place] [address] ProviderEder MD [facility] [place] [address] Social History Tobacco Use Types [...] Eder ProviderMD - 04/19/2020 12:17 PM CDT [address] , [place] [address] Patient Copy Patient Information: Name: VANE RAYA Current Date: 04/19/2020 12:17:27 : 1975 Patient Address: [address] [place] [address] [address] [id number] Patient Attending Physician: HANANE WOLFE MD-MANOJ Primary Care Provider: FLASH SANTANA Primary Care Provider Phone: Discharge Diagnosis: Nonepileptic episode Comment: Follow-up Instructions: With: Address: When: Hattie Diaz [address] [place] [address] Business (1) Within 3 months Discharge Instructions: [...] Assistance with quitting is available by contacting 9-939-DBRD-NOW. This is a free resource providing counseling, [...] sure to sign up for the [facility] patient portal, which gives you 20/01 access to your medical information ??? including these discharge instructions ??? using your computer, smartphone, or tablet. Just go to [employer] to get started. Questions? Call . [facility] would like to thank you for allowing us to assist you with your healthcare needs. GEORGES Cardona REBECCA JANE, (or public health representative) have received the above patient education materials/instructions and have verbalized understanding: Patient Signature _ Date/Time Patient Attendant Arcade Signature (if needed) Date/Time Clinician/Hospital Attendant Arcade Signature (if needed) Date/Time Electronically signed by Jimmy Feliciano Conversion Mergers And Acquisitions Associate Josefa at 10/17/2022 5:58 PM CDT documented in this encounter Plan of Treatment Not on file documented as of this encounter Visit Diagnoses Not on filedocumented in this encounter
--- OUTSIDE RECORDS SUMMARY | 2025-05-01 12:10 | XMS_ITS | Encounter Summary ---
Author Organization [facility] ([place], [place], [place], [place], [place]) Address [address] [place] [address] Care Team Providers Care Exterior Interior Specialist Name Role Phone Unavailable Primary Care Provider Unavailabl e Encounter Details Date Type Department Care Team (Late st Contact Info) Description 04/19/2020 Transcribed Document [facility] [place] Family Medicine [address] [place] [address] ProviderEder MD [address] [place] [address] Social History Tobacco Use Types [...] if you have a seizure. ??? Take iiai-dgu-ggpmtyu and prescription medicines only as told by [...] 08/01/2006 Document Revised: 05/29/2018 Document Reviewed: 03/28/2017 [employer] Patient Education ? 2020 [employer] documented in this encounter Plan of Treatment Not on file documented as of this encounter Visit Diagnoses Not on filedocumented in this encounter
--- OUTSIDE RECORDS SUMMARY | 2025-05-01 12:10 | XMS_ITS | Encounter Summary ---
Author Organization [employer] ([place], [place], [place], [place], [place]) Address [address] [place] [address] Care Team Providers Care Wool Dyer Name Role Phone Unavailable Primary Care Provider Unavailabl e Encounter Details Date Type Department Care Team (Late st Contact Info) Description 04/18/2020 Transcribed Document [facility] [place] [facility] [place] [address] ProviderEder MD [address] [place] [address] Social History Tobacco Use Types [...] EEG-video monitoring was performed using the 32-channel [employer] monitoring system. The seizure detection computer was [...] dysfunction in the left anterior temporal region. /[id number] Mamadou Campa MD TAF/AQ / TAF / MODL /[id number] documented in this encounter Plan of Treatment Not on file documented as of this encounter Visit Diagnoses Not on filedocumented in this encounter
--- OUTSIDE RECORDS SUMMARY | 2025-05-01 12:10 | XMS_ITS | Clinical Summary ---
Author Organization [employer] ([place], [place], [place], [place]) Address [address] [place] [address] Care Team Providers Care I&C Technician Name Role Phone Unavailable Primary Care [...]
--- OUTSIDE RECORDS SUMMARY | 2025-05-01 12:10 | XMS_ITS | Clinical Summary ---
Author Organization [facility] Address [address] [place] [address] Care Team Providers Care Sql Server Dba Developer Name Role Phone None Primary Care Provider [...] age to complete this topic Care Teams Sql Server Dba Developer Relationship Specialty Start Date End Date None PCP - General 01/16/08
--- OUTSIDE RECORDS SUMMARY | 2025-05-01 12:10 | XMS_ITS | Encounter Summary ---
Author Organization [employer] ([place], [place], [place], [place]) Address [address] [place] [address] Care Team Providers Care Office Chair Assembler Name Role Phone Unavailable Primary Care Provider Unavailabl e Encounter Details Date Type Department Care Team (Late st Contact Info) Description 04/18/2020 Transcribed Document [facility] [place] [address] [place] [address] ProviderEder MD [address] [place] [address] Social History Tobacco Use Types [...] Spiritual Care Spiritual Care Referred by : Supervisor Respiratory initiated Reason for Visit : Initial Ministry [...]
--- OUTSIDE RECORDS SUMMARY | 2025-05-01 12:10 | XMS_ITS | Encounter Summary ---
Author Organization [employer] ([place], [place], [place], [place], [place]) Address [address] [place] [address] Care Team Providers Care Set Up / Operator Name Role Phone Unavailable Primary Care Provider Unavailabl e Encounter Details Date Type Department Care Team (Late st Contact Info) Description 04/19/2020 Transcribed Document [facility] [place] [facility] [place] [address] ProviderEder MD [address] [place] [address] Social History Tobacco Use Types [...] Mathews MD - 04/19/2020 12:41 PM CDT [facility] [place] [address] VANE RAYA :1975 Visit Time:04/17/2020 Your [...] When Within 3 months Where: [address] [place] [address]- Business (1) Medications What How Much When Instructions [...] if you have a seizure. ??? Take tcfo-ghm-pfgqmzy and prescription medicines only as told by [...] 08/01/2006 Document Revised: 05/29/2018 Document Reviewed: 03/28/2017 [employer] Patient Education ?? 2020 [employer]. Emergency Awareness and Preventative Care STROKE is [...] Assistance with quitting is available by contacting 6-488-DAHP-NOW. This is a free resource providing counseling, [...] was given the opportunity to ask questions. Patient/Associate Professor Of Art History Name: Patient/Associate Professor Of Art History Signature: Relationship to Patient: Clinician/Hospital Associate Professor Of Art History Signature: Date: documented in this encounter Plan of Treatment Not on file documented as of this encounter Visit Diagnoses Not on filedocumented in this encounter
--- OUTSIDE RECORDS SUMMARY | 2025-05-01 12:10 | XMS_ITS | Encounter Summary ---
Author Organization [employer] ([place], [place], [place], [place], [place]) Address [address] [place] [address] Care Team Providers Care Vehicle Sales Professional Name Role Phone Unavailable Primary Care Provider Unavailabl e Encounter Details Date Type Department Care Team (Late st Contact Info) Description 04/17/2020 Transcribed Document [facility] [place] [address] [place] [address] ProviderEder MD [address] [place] [address] Social History Tobacco Use Types [...]
--- OUTSIDE RECORDS SUMMARY | 2025-05-01 12:10 | XMS_ITS | Encounter Summary ---
Author Organization [employer] ([place], [place], [place], [place], [place]) Address [address] [place] [address] Care Team Providers Care Child And Adolescent Psychologist Name Role Phone Unavailable Primary Care Provider Unavailabl e Encounter Details Date Type Department Care Team (Late st Contact Info) Description 04/17/2020 Transcribed Document [facility] [place] [facility] [place] [address] ProviderEder MD [address] [place] [address] Social History Tobacco Use Types [...] the upper and lower extremities. COORDINATION: Normal bpaqtn-xh-gryq. Normal rapid alternating movements. IMPRESSION: Ms. Raya [...] mg IV for repetitive or prolonged seizures. /[id number] MD BENJI Cabrera/NUSRAT / TAF / MODL Electronically signed by Braden [facility] Conversion Transit Mechanic Josefa at 10/17/2022 5:57 PM CDT documented in this encounter Plan of Treatment Not on file documented as of this encounter Visit Diagnoses Not on filedocumented in this encounter
--- OUTSIDE RECORDS SUMMARY | 2025-05-01 12:10 | XMS_ITS | Encounter Summary ---
Author Organization [employer] ([place], [place], [place]) Address [address] [place] [address] Care Team Providers Care Counter Manager Name Role Phone Unavailable Primary Care Provider Unavailabl e Encounter Details Date Type Department Care Team (Late st Contact Info) Description 04/17/2020 Transcribed Document [facility] [place] Family Medicine [address] [place] [address] ProviderEder MD [address] [place] [address] Social History Tobacco Use Types [...]
--- OUTSIDE RECORDS SUMMARY | 2025-05-01 12:10 | XMS_ITS | Encounter Summary ---
Author Organization [employer] ([place], [place], [place]) Address [address] [place] [address] Care Team Providers Care Principal Accounts Clerk Name Role Phone Unavailable Primary Care Provider Unavailabl e Encounter Details Date Type Department Care Team (Late st Contact Info) Description 04/17/2020 Transcribed Document [facility] [place] [address] [place] [address] ProviderEder MD [address] [place] [address] Social History Tobacco Use Types [...] EDT Electronically signed by Jimmy Feliciano Conversion Monitoring And Evaluation Advisor Cerner at 10/17/2022 5:48 PM CDT documented in this encounter Plan of Treatment Not on file documented as of this encounter Visit Diagnoses Not on filedocumented in this encounter
--- OUTSIDE RECORDS SUMMARY | 2025-05-01 12:10 | XMS_ITS | Encounter Summary ---
Author Organization [employer] ([place], [place], [place], [place]) Address [address] [place] [address] Care Team Providers Care Asset Protection Manager Name Role Phone Unavailable Primary Care Provider Unavailabl e Encounter Details Date Type Department Care Team (Late st Contact Info) Description 04/19/2020 Transcribed Document [facility] [place] [address] [place] [address] ProviderEder MD [address] [place] [address] Social History Tobacco Use Types [...]
--- OUTSIDE RECORDS SUMMARY | 2025-05-01 12:10 | XMS_ITS | Encounter Summary ---
Author Organization [employer] ([place], [place], [place], [place]) Address [address] [place] [address] Care Team Providers Care Chief Revenue Officer Name Role Phone Unavailable Primary Care Provider Unavailabl e Encounter Details Date Type Department Care Team (Late st Contact Info) Description 04/17/2020 Transcribed Document [facility] [place] Medicine [facility] [place] [address] ProviderEder MD [facility] [place] [address] Social History Tobacco Use Types [...] #2 Relationship : na Primary Language : Dominican Preferred Communication Mode : Verbal Communication Barrier : None Machine Package Sealer Needed : No Jeanne Pryor RN - [...] Scale Risk Level : 25-45 Medium Risk [place] Fall Interventions : Adequate lighting, Assistive devices [...] Source : Stated Height Entry Format : [place] Height, Feet : 5 ft(Converted to: 152 cm, 60 Inch) Height, Inches : 3 Inch(Converted to: 0 ft 3 Inch, 7.62 cm) Clinical Height : 160.02 cm Weight Source : Stated [place] Body Weight : 52 kg Jeanne Pryor RN - 04/17/2020 11:47 EDT Estimated Weight Type of Weight Measurement Est : [place] Weight, est lb : 127 lb(Converted to: [...] Jeanne Pryor RN - 04/17/2020 11:47 EDT [place] Suicide Severity Rating Scale (C-SSRS) CSSRS Past [...] : Cell phone, Wallet, Other: debit card, shake out worker Personal Items Disposition : With patient Medication Disposition : With patient Medication Brought With Patient : Yes Jeanne Pryor RN - 04/17/2020 11:47 EDT documented in this encounter Plan of Treatment Not on file documented as of this encounter Visit Diagnoses Not on filedocumented in this encounter
--- OUTSIDE RECORDS SUMMARY | 2025-05-01 12:10 | XMS_ITS | Encounter Summary ---
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 Reports ~20# weight loss over the past 1 year but unsure of timeframe. (13% x 1 year not considered significant). Did not observe fat or muscle wasting. LBM 10/18. Current weight 127#. Will rescreen in 7-10 days, no nutrition dx at this time MANUEL BRODERICK RD, LD - 04/18/2020 14:33 EDT documented in this encounter Plan of Treatment Not on file documented as of this encounter Visit Diagnoses Not on filedocumented in this encounter
--- OUTSIDE RECORDS SUMMARY | 2025-05-01 12:10 | XMS_ITS | Encounter Summary ---
Author Organization [employer] ([place], [place], [place], [place]) Address [address] [place] [address] Care Team Providers Care Service Station Operator Name Role Phone Unavailable Primary Care Provider Unavailabl e Encounter Details Date Type Department Care Team (Late st Contact Info) Description 04/19/2020 Transcribed Document [facility] [place] [facility] [place] [address] ProviderEder MD [address] [place] [address] Social History Tobacco Use Types [...] EEG-video monitoring was performed using the 32-channel [employer] monitoring system. The seizure detection computer was [...] dysfunction in the left anterior temporal region. /[id number] MD BENJI Cabrera/NUSRAT / TAF / MODL /[id number] Electronically signed by Braden, Jimmy Conversion Principal Technical Architect Cerner at 10/17/2022 6:10 PM CDT documented in this encounter Plan of Treatment Not on file documented as of this encounter Visit Diagnoses Not on filedocumented in this encounter
--- OUTSIDE RECORDS SUMMARY | 2025-05-01 12:10 | XMS_ITS | Referral Summary ---
Author Organization [employer] ([place], [place], [place], [place], [place]) Address [address] [place] [address] Care Team Providers Care Customs Brokerage Manager Name Role Phone Unavailable Primary Care [...]
--- OUTSIDE RECORDS SUMMARY | 2025-05-01 12:10 | XMS_ITS | Encounter Summary ---
Author Organization [employer] ([place], [place], [place], [place], [place]) Address [address] [place] [address] Care Team Providers Care Seating Upholsterer Name Role Phone Unavailable Primary Care Provider Unavailabl e Encounter Details Date Type Department Care Team (Late st Contact Info) Description 04/18/2020 Transcribed Document [facility] [place] Medicine [address] [place] [address] ProviderEder MD [address] [place] [address] Social History Tobacco Use Types [...] Note - Eder Mathews MD - 04/18/2020 12:41 PM CDT Patient: VANE [...] 2 mg, IV Push, Q8H, PRN: Seizures [place] 7.5 mg-325 mg oral tablet: 1 Tab, Oral, Q4H, PRN: Pain (Moderate 4-6) Zofran: 4 mg, IV Push, Q6H, PRN: Nausea/Vomiting albuterol 5 mg/mL (0.5%) inhalation solution: 2.5 mg, 0.5 mL, Nebulized Inhalation, Q6H, PRN: Wheezing desvenlafaxine: 50 mg, Oral, At Bedtime Pending Complete influenza virus vaccine, inactivated: 0.5 mL, IntraMuscular, [id number] Documented Medications Documented Biofreeze: 1 Application, Topical, [...] list: Medical Allergic rhinitis / SNOMED CT 877226106 / Confirmed horse shoe shaped kidney / Confirmed Fasting hypoglycemia / SNOMED CT 21123196 / Confirmed Wears eyeglasses / SNOMED CT 967029618 / Confirmed Asthma / SNOMED CT 870684316 / Confirmed H/O bronchitis / SNOMED CT 486936358 / Confirmed H/O: pneumonia / SNOMED CT 010168546 / Confirmed Hemorrhoids / SNOMED CT 230962158 / Confirmed Renal calculus / SNOMED CT 669523632 / Confirmed Urinary tract infection / SNOMED CT 345126844 / Confirmed Arthritis / SNOMED CT 7530506 / Confirmed Back pain / SNOMED CT 642637064 / Confirmed Restless legs syndrome / SNOMED CT 42288024 / Confirmed Cervical disc disease with myelopathy / SNOMED CT 616877920 / Confirmed Migraine / SNOMED CT 91951375 / Confirmed Concussion / SNOMED CT 908607562 / Confirmed Acute anxiety / SNOMED CT 72943822 / Confirmed History of panic attacks / SNOMED CT 558695853 / Confirmed Anxious depression / 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 [place] Weight, est lb 127 lb Weight, est oz 6 oz Estimated Clinical Dosing Weight 57.9 kg [place] Cbc Base Body Weight 52 kg Weight Source Stated [...] 19:17) DBP 71 (APR 18 06:08) 71 (OCT 06:08) 83 (OCT 19 19:17) MAP 87 (APR 18 06:08) 87 (APR 18 06:08) 97 (APR 17 19:17) SpO2 98 (APR 18 06:08) 98 (OCT 06:08) 98 (OCT 06:08) General: Alert and oriented. Eye: Pupils [...]
--- OUTSIDE RECORDS SUMMARY | 2025-05-01 12:10 | XMS_ITS | Encounter Summary ---
Author Organization [employer] ([place], [place], [place], [place], [place]) Address [address] [place] [address] Care Team Providers Care Sustainability Communicator Name Role Phone Unavailable Primary Care Provider Unavailabl e Encounter Details Date Type Department Care Team (Late st Contact Info) Description 04/19/2020 Transcribed Document [facility] [place] Family Medicine [facility] [place] [address] ProviderEder MD [address] [place] [address] Social History Tobacco Use Types [...] On: 04/19/2020 13:27 EDT by ALESSIO MAXWELL, RN-Rn Transition Final Discharge Planning Discharge Arrangements : Patient [...] : Yes Discharge To Care Management : Home/Residential/Group Home or Self Care -01 ALESSIO MAXWELL, RN-Rn Transition - 04/19/2020 13:27 EDT Final Narrative Note Final Narrative Note : Pt to discharge to home. No discharge needs noted. ALESSIO MAXWELL RN-Rn Transition - 04/19/2020 13:27 EDT documented in this encounter Plan of Treatment Not on file documented as of this encounter Visit Diagnoses Not on filedocumented in this encounter
--- OUTSIDE RECORDS SUMMARY | 2025-05-01 12:10 | XMS_ITS | Encounter Summary ---
Author Organization [employer] ([place], [place], [place], [place], [place]) Address [address] [place] [address] Care Team Providers Care Director Of Early Childhood Name Role Phone Unavailable Primary Care Provider Unavailabl e Encounter Details Date Type Department Care Team (Late st Contact Info) Description 04/19/2020 Transcribed Document [facility] [place] [facility] [address] ProviderEder MD [address] [place] [address] Social History Tobacco Use Types [...] Normal cranial nerves. Normal motor exam. Normal [id number]. DISCHARGE INSTRUCTIONS: 1. No driving. 2. Divalproex sodium 500 mg daily. 3. Albuterol 3 mL inhalation as needed. 4. Pristiq 50 mg daily. 5. Diazepam p.r.n. 6. Biofreeze one application three times daily as needed. 7. Follow up with Dr. Diaz within 3 months. /[id number] MD BENJI Cabrera/AQ / BENJI / MODL /[id number] Electronically signed by Braden [facility] Conversion Brokerage Coordinator Cerner at 10/17/2022 5:52 PM CDT documented in this encounter Plan of Treatment Not on file documented as of this encounter Visit Diagnoses Not on filedocumented in this encounter
--- OUTSIDE RECORDS SUMMARY | 2025-05-01 12:10 | XMS_ITS | Encounter Summary ---
Author Organization [employer] ([place], [place], [place], [place], [place]) Address [address] [place] [address] Care Team Providers Care Human Capital Analyst Name Role Phone Unavailable Primary Care Provider Unavailabl e Encounter Details Date Type Department Care Team (Late st Contact Info) Description 04/19/2020 Transcribed Document [facility] [place] Family Medicine [facility] [place] [address] ProviderEder MD [address] [place] [address] Social History Tobacco Use Types [...] EEG-video monitoring was performed using the 32-channel Velti monitoring system. The seizure detection computer was [...] dysfunction in the left anterior temporal region. /[id number] MD BENJI Cabrera/AQ / BENJI / MODL /[id number] documented in this encounter Plan of Treatment Not on file documented as of this encounter Visit Diagnoses Not on filedocumented in this encounter
--- OUTSIDE RECORDS SUMMARY | 2025-05-01 12:10 | XMS_ITS | Encounter Summary ---
Author Organization [employer] ([place], [place], [place], [place], [place]) Address [address] [place] [address] Care Team Providers Care Corporate Coordinator Name Role Phone Unavailable Primary Care Provider Unavailabl e Encounter Details Date Type Department Care Team (Late st Contact Info) Description 04/19/2020 Transcribed Document [facility] [place] [facility] [place] [address] ProviderEder MD [facility] [place] [address] Social History Tobacco Use Types [...] Evaluation : Verbalizes understanding Education Comment : Nursing Home Monitoring on the EMU Jeanne Pryor RN - 04/19/2020 13:18 EDT Electronically signed by Braden, [facility] Conversion Retail Coordinator Cerner at 10/17/2022 5:55 PM CDT documented in this encounter Plan of Treatment Not on file documented as of this encounter Visit Diagnoses Not on filedocumented in this encounter
--- OUTSIDE RECORDS SUMMARY | 2025-05-01 12:10 | XMS_ITS | Encounter Summary ---
Author Organization [employer] ([place], [place], [place], [place], [place]) Address [address] [place] [address] Care Team Providers Care Buckle Stapler Name Role Phone Unavailable Primary Care Provider Unavailabl e Encounter Details Date Type Department Care Team (Late st Contact Info) Description 04/18/2020 Transcribed Document [facility] [place] Family Medicine [address] [place] [address] ProviderEder MD [address] [place] [address] Social History Tobacco Use Types [...] Conversion Note - Eder ProviderMD - 04/18/2020 8:52 AM CDT UM Authorization Entered On: 04/18/2020 8:53 EDT Performed On: 04/18/2020 8:52 EDT by LUH PATTEN RN-Utilization Review Primary Insurance Authorization Authorization and Policy Numbers : Insurance 1 [facility] Number: [id number] Authorization Number: NPR Insurance Primary Name : [facility] [id number] Authorized Service Begin Date-Primary : 04/17/2020 EDT Observation Authorization Nbr-Primary : [id number] Authorization Comments-Primary : ref # per scanned document Historical Authorization Comments-Primary : No Authorization Comments Found LUH PATTEN RN-Utilization Review - 04/18/2020 8:52 EDT Electronically signed by Braden [facility] Conversion Officer Captain Cerner at 10/17/2022 6:00 PM CDT documented in this encounter Plan of Treatment Not on file documented as of this encounter Visit Diagnoses Not on filedocumented in this encounter
--- NOTE | 2025-05-01 12:12 | ED_ITS ---
<Statement entered by Andrey Farah MD - 05/01/25 15:35> I consulted the VELMA, and we discussed the complexity of the problems being addressed. I approved the treatment and management plan for this patient's care in the emergency department, thus performing a substantial portion of the medical decision making. Hector Farah MD Discharge Plan Disposition Patient Disposition: Home, Self-Care Condition: Good Prescriptions Prescriptions: New cephalexin 500 mg capsule 500 mg PO Q12H 10 Days Qty: 20 0RF polyethylene glycol 3350 [Miralax] 17 gram/dose powder 17 g PO DAILY 10 Days Qty: 170 0RF No Action quetiapine 100 mg tablet 50 mg PO HS PRN (Reason: as needed) Qty: 30 2RF meloxicam 7.5 mg tablet 7.5 mg PO DAILY Qty: 30 2RF diclofenac sodium [Voltaren Arthritis Pain] 1 % gel 4 g topical QID Qty: 100 2RF Rx Instructions: apply to single knee, ankle, foot; for foot includes sole/toes/top of foot lidocaine [Aspercreme (lidocaine)] 4 % adhesive patch,medicated 1 patch topical DAILY PRN (Reason: pain) Qty: 30 0RF divalproex 250 mg tablet,delayed release (DR/EC) 500 mg PO HS Qty: 60 11RF Rx Instructions: TAKE TWO TABLETS BY MOUTH EVERY DAY AT BEDTIME FOR seizures naloxone [Narcan] 4 mg/actuation spray,non-aerosol 1 spray intranasal Q3M PRN (Reason: opioid overdose) Qty: 2 0RF Rx Instructions: spray 1 dose into ONE nostril; alternate nostrils w each dose until help arrives albuterol sulfate 90 mcg/actuation aerosol powdr breath activated 2 inh inhalation Q6H PRN (Reason: shortness of breath or wheezing) Qty: 1 2RF cyanocobalamin (vitamin B-12) 1,000 mcg tablet 1,000 mcg PO DAILY Qty: 90 3RF cholecalciferol (vitamin D3) 50 mcg (2,000 unit) capsule 50 mcg PO DAILY Qty: 90 3RF diazepam 5 mg tablet 5 mg PO HS PRN (Reason: anxiety) Qty: 30 0RF budesonide-formoterol 160-4.5 mcg/actuation HFA aerosol inhaler 1 inh inhalation BID Qty: 10.2 2RF ipratropium-albuterol 0.5 mg-3 mg(2.5 mg base)/3 mL solution for nebulization 3 ml inhalation Q6H PRN (Reason: wheezing) Qty: 180 1RF rizatriptan [Maxalt-SHIRRING MACHINE OPERATOR AUTOMATIC] 10 mg tablet,disintegrating 10 mg PO DAILY Rx Instructions: take 1 tab at onset of headache; if no relief may repeat 1 tab after at least 2 hrs; max = 3 tabs/24 hr PO desvenlafaxine succinate 50 mg tablet extended release 24 hr 25 mg PO DAILY Rx Instructions: Take with a 25mg tablet for a total of 75mg daily. Referrals Follow up/Referrals: Benny Martinez MD [Staff Physician, POSTAL INSPECTOR] - See instructions Yousif Garcia DO [Primary Care Provider, Family Practice] - See instructions Activity Restrictions/Add. Instructions Additional Instructions/Restrictions: You were seen for abdominal pain. Your urine has evidence of likely mild infection, take your antibiotics as prescribed. For your constipation please take miralax and see your PCP. There were some lesions on your liver, unchanged since 2020. Please discuss further with your PCP. For the fluid in your fallopian tube please see your FORK TRUCK OPERATOR. Clinical Impressions Clinical Impression: UTI (urinary tract infection), Constipation, Hydrosalpinx Instructions Patient Instructions: DI for Acute Abdominal Pain Print Language Print Language: Upper Sorbian Discharge ED Provider: Andrey Farah Adult HPI General Chief complaint: Abdominal Pain Stated complaint: abdominal pain Time Seen by Provider: 05/01/25 12:05 Mode of Arrival: Ambulatory Source of Information: Patient Description of Symptoms (Recalled from ER Triage Doc. by RN): Pt states abdominal pain started 3 days ago. Pt thought she had a UTI, so she started taking AZO but states its not helping. Pt is complaining of dysuria, and frequent urination. History of Present Illness HPI narrative: Patient presents complaining of bilateral lower abdominal pain for the past 3 days. She reports some associated urinary pressure and frequency. She has been taking Azo without relief. Denies any fevers or vomiting. She does have unchanged chronic diarrhea which is described as nonbloody. She does have a history of ovarian cyst. She has had a hysterectomy and appendectomy in the past. Patient has had a new sexual partner recently. She denies any vaginal discharge. MD complaint: abdominal pain Onset (ago): day(s) (3) Location: abdomen and pelvis Radiation: non-radiation Severity: severe Consistency: constant Relieving factors: none Exacerbating factors: none Associated symptoms: other (chronic nonbloody diarrhea ); negative fever/chills or nausea/vomiting Treatments prior to arrival: none Related Data Home Medications ?Medication ?Instructions ?Recorded ?Confirmed desvenlafaxine succinate 50 mg 25 mg PO DAILY 03/30/25 04/06/25 tablet,extended release 24 hr rizatriptan 10 mg disintegrating 10 mg PO DAILY 04/06/25 tablet (Maxalt-SHIRRING MACHINE OPERATOR AUTOMATIC) Previous Rx's ?Medication ?Instructions ?Recorded albuterol sulfate 90 mcg/actuation 2 inh inhalation Q6 H PRN shortness 08/29/23 breath activated powder inhaler of breath or wheezing #1 ea budesonide-formoterol HFA 160 1 inh inhalation BID #10 .2 grams 11/21/23 mcg-4.5 mcg/actuation aerosol inhaler ipratropium 0.5 mg-albuterol 3 mg 3 ml inhalation Q6H PRN wheezing 11/21/23 (2.5 mg base)/3 mL nebulization #180 mL soln diclofenac sodium 1 % topical gel 4 g topical QID #100 grams 04/29/24 (Voltaren Arthritis Pain) lidocaine 4 % topical patch 1 patch topical DAILY PRN pain #30 04/29/24 (Aspercreme (lidocaine)) ea cholecalciferol (vitamin D3) 50 50 mcg PO DAILY #90 ca ps 06/11/24 mcg (2,000 unit) capsule cyanocobalamin (vitamin B-12) 1,000 mcg PO DAILY #90 t abs 06/11/24 1,000 mcg tablet naloxone 4 mg/actuation nasal 1 spray intranasal Q3M P RN opioid 10/01/24 spray (Narcan) overdose #2 ea divalproex 250 mg tablet,delayed 500 mg (2 x 250 mg) P O HS #60 tabs 10/27/24 release meloxicam 7.5 mg tablet 7.5 mg PO DAILY #30 tabs quetiapine 100 mg tablet 50 mg (1/2 x 100 mg) PO HS P RN as 03/28/25 needed #30 tabs diazepam 5 mg tablet 5 mg PO HS PRN anxiety #30 t abs 04/27/25 cephalexin 500 mg capsule 500 mg PO Q12H 10 days #20 c aps 05/01/25 polyethylene glycol 3350 17 17 g PO DAILY 10 days #170 grams 05/01/25 gram/dose oral powder (Miralax) Allergies Allergy/AdvReac Type Severity Reaction Status Date / Time nitrous oxide Allergy Severe Unknown Verified 04/06/25 15:12 allergy reaction prednisone Allergy Mild shortness Verified 04/06/25 15:12 of breath codeine (CODEINE) Allergy Unknown Unknown Verified 04/06/25 15:12 allergy reaction fluoxetine (From PROZAC) Allergy Unknown Unknown Verified 04/06/25 15:12 allergy reaction ibuprofen (IBUPROFEN) Allergy Unknown Unknown Verified 04/06/25 15:12 allergy reaction latex (LATEX) Allergy Unknown Unknown Verified 04/06/25 15:12 allergy reaction loratadine (From CLARITIN) Allergy Unknown Unknown Verified 04/06/25 15:12 allergy reaction magnesium (MAGNESIUM) Allergy Unknown Unknown Verified 04/06/25 15:12 allergy reaction nitrofurantoin Allergy Unknown Unknown Verified 04/06/25 15:12 (NITROFURANTOIN) allergy reaction oxycodone (OXYCODONE) Allergy Unknown Unknown Verified 04/06/25 15:12 allergy reaction risperidone Allergy Unknown Unknown Verified 04/06/25 15:12 allergy reaction sumatriptan (SUMATRIPTAN) Allergy Unknown Unknown Verified 04/06/25 15:12 allergy reaction tramadol (TRAMADOL) Allergy Unknown Unknown Verified 04/06/25 15:12 allergy reaction trazodone (TRAZODONE) Allergy Unknown Altered Verified 04/06/25 15:12 Sense of Taste duloxetine Allergy Unknown Verified 04/06/25 15:12 allergy reaction metronidazole (From Flagyl) Allergy Hallucinati Verified 04/06/25 15:12 ons PFSH PFSH Disclaimer: The information contained in this section may have been updated after the patient was seen, as this information can be updated by other users. Medical History Skin lesions 6 mm brought-based right axillary skin tag with associated pain/discomfort Lumbar radiculopathy Benzodiazepine withdrawal Urinary tract infection symptoms Nerve pain Cervical radicular pain Sciatica Nightmares associated with chronic post-traumatic stress disorder Left leg pain Spell of altered consciousness Fall Urinary symptom or sign Dizziness Dizziness Hypokalemia Anxiety Skin lesions, generalized Abnormal electrocardiogram [ECG] [EKG] Dyspnea Depression Strep pharyngitis Complete miscarriage Acute pain of left knee Arm pain, left Swelling of labia Allergic reaction caused by a drug UTI (urinary tract infection) No significant past medical history Rash and nonspecific skin eruption Generalized seizure COVID-19 Vomiting Headache Gastroenteritis Pharyngitis Exposure to COVID-19 virus Viral syndrome Chronic lumbar pain COPD exacerbation Strain of lumbar region Concussion Fall Seizure Medication reaction Lower extremity pain Functional abdominal pain syndrome Neck Pain Elbow pain Anxiety Valium was prescribed by psychiatrist in [place] Cervical strain Acute bronchitis Bronchitis Surgical History History of kidney surgery History of D&C H/O: History of appendectomy History of partial hysterectomy H/O cervical spine surgery Family History Other Cancer Diabetes Heart attack Hypertension Stroke Social History Smoking Status: Former smoker tobacco type: cigarettes packs per day: 1 smoking status stop date: 2015 alcohol intake: never substance use type: denies use current occupational status: other Travel in the last 8 weeks?: None household members: none housing: other Have you lived/traveled outside [place] in past 30 days?: No Contact w/someone who lives/traveled outside US past 30 days?: No Exposure to someone with infectious disease in past 14 days?: No Do you have a fever (greater than 100.4 F or 38 C)?: No Have you tested positive for COVID-19?: No Exposed to someone with COVID-19 in past 14 days?: No Do you have a sore throat?: No Do you have a cough?: No Do you have any weakness?: No Do you have any diarrhea?: No Are you experiencing any unusual bleeding?: No Do you have any muscle aches/pain?: No Do you have any abdominal pain?: No Are you experiencing loss of taste or smell?: No Other Medical History Have you received the Flu Vaccine for this season: No Have you received the Pneumonia Vaccine: Yes ROS Obtained: Yes Systems reviewed as appropriate & no additional complaints except as documented Physical Exam General General appearance: alert and other (Appears to be in moderate pain) Head Head exam: atraumatic and normocephalic Eye Eye exam: Present normal appearance and EOMI Chest Chest inspection: Present symmetric chest wall rise Respiratory Respiratory exam: Present normal lung sounds bilaterally; Absent wheezes or stridor Cardiovascular Cardiovascular exam: Present regular rate and normal rhythm; Absent systolic murmur Abdominal Exam Abdominal exam: Present soft and normal bowel sounds; Absent distention, guarding, rebound or rigidity Abdominal tenderness: Present RLQ and LLQ Extremities Exam Extremities exam: Present full ROM Neurological Exam Neurological exam: Present alert and oriented X3 Psychiatric Psychiatric exam: Present normal affect and normal mood Skin Skin exam: Present warm, dry and intact Medical Decision Making Medical Records Screening: Per USPSTF and CDC recommendations, given the prevalence of disease in our region, it is our hospital?s policy to screen for HIV and viral Hepatitis for all patients aged 18 and over and those with ongoing risk factors. Darrius Inquiry Pt receiving controlled substance: No Vital Signs: 05/01/25 12:03 05/01/25 12:09 05/01/25 13:15 Temperature 97.9 F Temperature Source Oral Pulse Rate 77 79 Pulse Rate [Right] 82 Respiratory Rate 22 Blood Pressure 126/90 132/71 Blood Pressure [Right Arm] 106/70 L Blood Pressure Mean [Right Arm] 82 Blood Pressure Source [Right Arm] Automatic Cuff Blood Pressure Position [Right Arm] Sitting 02 Sat by Pulse Oximetry 100 96 98 Oxygen Delivery Method Room Air Room Air Room Air 05/01/25 14:55 05/01/25 15:00 05/01/25 15:30 Temperature Temperature Source Pulse Rate 78 65 73 Pulse Rate [Right] Respiratory Rate Blood Pressure 147/80 H 138/80 113/71 Blood Pressure [Right Arm] Blood Pressure Mean [Right Arm] Blood Pressure Source [Right Arm] Blood Pressure Position [Right Arm] 02 Sat by Pulse Oximetry 97 97 96 Oxygen Delivery Method Room Air Room Air Room Air Lab Data Lab Results 05/01/25 12:07: Urine Color Yellow, Urine Appearance Clear, Urine pH 5.5, Ur Specific [place] 1.025, Urine Protein Negative, Urine Glucose (UA) Negative, Urine Ketones Negative, Urine Blood 2+ A, Urine Nitrate Negative, Urine Bilirubin Negative, Urine Urobilinogen 0.2, Ur Leukocyte Esterase Negative, Urine RBC 10-20, Urine WBC 5-10, Ur Squamous Epith Cells 5-10, Urine Bacteria 3+, Urine Mucus 2+ 05/01/25 12:20: WBC 6.8, RBC 4.27, Hgb 13.5, Hct 39.8, MCV 93.2, MCH 31.6 H, MCHC 33.9, RDW 12.8, Plt Count 275, MPV 11.2 H, Neut % (Auto) 49.0, Lymph % (Auto) 40.7, [place] % (Auto) 6.6, Eos % (Auto) 2.8, Baso % (Auto) 0.6, Neut # (Auto) 3.4, Lymph # (Auto) 2.8, [place] # (Auto) 0.5, Eos # (Auto) 0.2, Baso # (Auto) 0.0, Sodium 134 L, Potassium 4.8, Chloride 102, Carbon Dioxide 27, Anion Gap 9.8, BUN 18 H, Creatinine 0.70, Estimated Creat Clear 101, Estimated GFR 89, Est GFR ( Amer) 107, Glucose 103 H, Lactate 1.4, Calcium 9.1, Total Bilirubin 0.3, AST 23, ALT 17, Alkaline Phosphatase 90, Total Protein 7.3, Albumin 3.5, Globulin 3.8 H, Albumin/Globulin Ratio 0.9 L, Lipase 131, Ur C. trach DNA (PCR) Negative, U N.gonorrhoeae DNA PCR Negative, T. vaginalis (PCR) Negative 05/01/25 12:20 05/01/25 12:20 Orders (Tests/Meds): ED MEDICATIONS Generic Name Dose Route Start Last Admin Trade Name Freq PRN Reason Stop Dose Admin Cephalexin HCl 500 mg 05/01/25 15:34 Cephalexin 500mg Capsule PO 05/01/25 15:35 ONCE ONE Sodium Chloride 10 ml 05/01/25 12:14 Sodium Chloride 0.9% 10ml Flush Syringe IV 05/31/25 12:13 NEEDED PRN Maintain IV Site Sodium Chloride 10 ml 05/01/25 13:09 05/01/25 13:10 Sodium Chloride 0.9% 10ml Syr (Rad Only) IV 05/31/25 13:08 10 ml NEEDED PRN Administration Maintain IV Site Discontinued Medications Generic Name Dose Route Start Last Admin Trade Name Freq PRN Reason Stop Dose Admin Sodium Chloride 1,000 mls @ 999 mls/hr 05/01/25 12:19 05/01/25 14:47 Sod Chlor 0.9% 1000ml Bag IV 05/01/25 13:19 Infused .Q1H1M ONE Infusion Iopamidol 75 ml 05/01/25 13:09 05/01/25 13:10 Iopamidol-370 (76%);100ml Bottle IV 05/01/25 13:10 75 ml ONCE ONE Administration Morphine Sulfate 4 mg 05/01/25 12:19 05/01/25 12:30 Morphine 4mg/Ml Syringe IV 05/01/25 12:20 4 mg ONCE ONE Administration Morphine Sulfate 4 mg 05/01/25 15:09 05/01/25 15:16 Morphine 4mg/Ml Syringe IV 05/01/25 15:10 4 mg ONCE ONE Administration Ondansetron HCl 4 mg 05/01/25 12:25 05/01/25 12:30 Ondansetron 4mg/2ml Vial IV 05/01/25 12:26 4 mg ONCE ONE Administration ORDERS Category Date Time Status CT abdomen pelvis w con Stat Cat Scan 05/01/25 12:15 Completed US transvaginal Stat Exams 05/01/25 13:52 Completed Complete Blood Count Auto Diff Stat Lab 05/01/25 12:20 Completed Comprehensive Metabolic Panel Stat Lab 05/01/25 12:20 Completed Lactic Acid Stat Lab 05/01/25 12:20 Completed Lipase Stat Lab 05/01/25 12:20 Completed Urinalysis and Microscopic Stat Lab 05/01/25 12:07 Completed Urine Chlam/Gono/Trich ([facility]) Stat Lab 05/01/25 12:20 Completed Urine Culture Stat Micro 05/01/25 12:07 Received Medical Decision Narrative: In summary patient is a 49-year-old Fe who presents the emergency department for evaluation of abdominal. Patient is hemodynamically stable upon arrival, afebrile. Bilateral lower abdominal tenderness without guarding or rebound. Differential diagnosis includes UTI, diverticulitis, colitis, enteritis, ovarian cyst, ureteral stone. Initial workup will be conducted with hematologic labs, urinalysis, CT abdomen and pelvis. Initial inventions include morphine, IV. Initial workup reviewed by nc CT shows stable hydrosalpinx, moderate stool burden, stable liver density since 2020. Upon repeat evaluation patient had improvement with first dose of morphine, pain did return and she was given a second. Given this patient is appropriate for discharge home at this time with follow-up with her institutional commodity analyst to discuss her stable hydrosalpinx as well as her PCP to discuss her constipation and unchanged liver densities. She did have evidence of mild UTI on urinalysis, will start Keflex pending culture. Given return precautions, patient is agreeable to plan. Critical Care Critical Care Time Critical Care Time: No
--- NOTE | 2025-05-01 12:15 | CT_ITS ---
PROCEDURE INFORMATION: Exam: CT Abdomen And Pelvis With Contrast Exam date and time: 05/01/2025 2:09 PM Age: 49 years old Clinical indication: Abdominal pain; Additional info: Lower abd pain, diarrjea, urinary pressure TECHNIQUE: Imaging protocol: Computed tomography of the abdomen and pelvis with contrast. Radiation optimization: All CT scans at this facility use at least one of these dose optimization techniques: automated exposure control; mA and/or kV adjustment per patient size (includes targeted exams where dose is matched to clinical indication); or iterative reconstruction. Contrast material: ISOVUE; Contrast volume: 75 ml; Contrast route: IV; COMPARISON: CT BONY PELVIS 03/24/2025 5:34 PM . CTs of the abdomen and pelvis dated 11/19/2024 and 03/16/2021 FINDINGS: Lungs: Visible portions of the lungs are unremarkable. Heart: The heart is unremarkable. No cardiomegaly. No pericardial effusion. Esophagus: The visible esophagus is unremarkable. Liver: 7 mm hypodensity, hepatic segment 8, image 3/20. 12 mm hypodensity, hepatic segment 6, image 3/38. 8 mm hypodensity, hepatic segment 6, image 3/43. These hypodensities are are stable compared to the CT of 03/16/2021. Gallbladder and biliary ducts: The gallbladder and biliary tree are unremarkable. Pancreas: Mild diffuse atrophy of the pancreas. The pancreatic duct is normal in size. Spleen: Spleen is unremarkable. Adrenal glands: The adrenal glands are unremarkable. 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 3 mm nonobstructing stone in the left renal collecting system. Multiple focal scars of the cortex of the right renal moiety. Mild hydronephrosis of both the left and right collecting systems. Stomach and bowel: 2 cm duodenal diverticulum, medial wall, 2nd portion. Lqbwaskd-zp-yynol amount of stool in the colon. The remaining bowel is unremarkable. Appendix: Status post appendectomy. Intraperitoneal space: The intraperitoneal space is unremarkable. No free air. No significant fluid collection. Vasculature: The vasculature is unremarkable accounting for age. No abdominal aortic aneurysm. Lymph nodes: No enlarged lymph nodes. Urinary bladder: The urinary bladder is unremarkable. Reproductive: Status post hysterectomy. Stable serpiginous dilated fluid-filled structure of the right adnexa consistent with stable hydrosalpinx. Left ovary is unremarkable. Bones/joints: Unremarkable. No acute fracture. Soft tissues: The remaining soft tissue is unremarkable. IMPRESSION: 1. There is no acute abdominal or pelvic pathology. 2. Lfsyexsj-fy-dnxzb amount of stool in the colon. 3. Stable right hydrosalpinx status post hysterectomy. 4. Stable small hepatic hypodensities dating back to 2020.
[2025-05-01] MEDS: 0.9 % SODIUM CHLORIDE 1000ML 1,000 ML 999 ML IV (12:29)
[2025-05-01 12:30] LABS: Microscopic, Urine URINE MICROSCOPIC (MICROSCOPIC)
[2025-05-01] MEDS: MORPHINE 4MG/ML SYRINGE 4 MG IV ×2 (12:30→15:16)
[2025-05-01] MEDS: ONDANSETRON 4MG/2ML VIAL 4 MG IV (12:30)
[2025-05-01 12:31] LABS: Hematocrit 39.8 % (37.0-47.0); Hemoglobin 13.5 g/dL (12.2-16.2); Immature Granulocytes % 0.3 %; Mean Corpuscular HGB Conc 33.9 g/dL (31.8-35.4); Mean Corpuscular Hemoglobin 31.6 pg (27.0-31.2); Mean Corpuscular Volume 93.2 fl (81-99); Nucleated Red Blood Cells % 0 %; Platelet Count 275 K/mm3 (142-424); Red Blood Count 4.27 M/mm3 (4.20-5.40); Red Cell Distribution Width-SD 43.8 fL; White Blood Count 6.8 K/mm3 (4.8-10.8)
[2025-05-01 12:35] LABS: Bilirubin,Urine Negative (Negative); Color,Urine YELLOW (Yellow); Glucose,Urine (UA) Negative (Negative); Ketones,Urine Negative (Negative); Leukocyte Esterase,Urine Negative (Negative); PH,Urine 5.5 (5.0-8.5); Protein,Urine Negative (Negative); Specific Gravity, Urine 1.025 (1.005-1.030); Urobilinogen,Urine 0.2 EU/dl (0.2)
[2025-05-01 12:47] LABS: Alanine Aminotransferase 17 U/L (12-78); Albumin Level 3.5 g/dl (3.5-5.0); Albumin/Globulin Ratio 0.9 (1.1-1.8); Alkaline Phosphatase 90 U/L (38-126); Anion Gap 9.8 mEq/L (5-15); Aspartate Amino Transferase 23 U/L (14-36); Bilirubin,Total 0.3 mg/dl (0.2-1.3); Blood Urea Nitrogen 18 mg/dl (7-17); Calcium 9.1 mg/dl (8.4-10.2); Carbon Dioxide 27 mmol/L (22.0-30.0); Chloride 102 mmol/L (98-107); Creatinine Clearance Estimated 101 mL/min (50-200); Creatinine,Serum 0.70 mg/dl (0.52-1.04); Estimated Glomerular Filt Rate 89 ml/min (>60); GFR (African American) 107 ML/MIN (>60); Globulin 3.8 g/dL (1.3-3.2); Glucose 103 mg/dl (74-100); Lipase 131 U/L (23-300); Potassium 4.8 mmoL/L (3.5-5.1); Sodium 134 mmol/L (136-145); Total Protein,Serum 7.3 g/dl (6.3-8.2)
[2025-05-01] MEDS: SODIUM CHLORIDE 0.9% 10ML SYR (RAD ONLY) 10 ML IV (13:10)
[2025-05-01] MEDS: IOPAMIDOL-370 (76%);100ML BOTTLE 75 ML IV (13:10)
--- NOTE | 2025-05-01 13:20 | PC.NURSE ---
Patient is asking for drink and food, informed she is NPO at this time until the CT results are back.
--- NOTE | 2025-05-01 13:52 | US_ITS ---
PROCEDURE INFORMATION: Exam: US Pelvis, Transvaginal, Non-Obstetric Exam date and time: 05/01/2025 2:19 PM Age: 49 years old Clinical indication: Pelvic pain; Prior surgery; Surgery date: 6+ months; Surgery type: Hysterectomy partial; Additional info: R/O torsion, large ovarian cyst TECHNIQUE: Imaging protocol: Real-time transvaginal pelvic (non-obstetric) ultrasound with image documentation. Transvaginal imaging was used for better evaluation of the endometrium, adnexa, and/or cervix. COMPARISON: CT ABDOMEN PELVIS W CON 05/01/2025 2:09 PM. CTs of the abdomen and pelvis dated 11/19/2024 and 03/16/2021. FINDINGS: Uterus: Patient is status post partial hysterectomy. Right ovary/adnexa: The right ovary is normal in size and appearance measuring 3.0 x 1.3 x 1.4 cm with a calculated volume of 2.9 mL (normal </= 11 mm). There is normal color and spectral Doppler blood flow. Right hydrosalpinx, stable compared to CT abdomen and pelvis of 11/19/2024. Left ovary/adnexa: The left ovary is normal in size and appearance measuring 2.5 x 1.3 x 1.3 cm with a calculated volume of 2.2 mL (normal </= 11 mm). There is normal color and spectral Doppler blood flow. Urinary bladder: Urinary bladder is limited. Intraperitoneal space: No free fluid. IMPRESSION: 1. No ovarian torsion. 2. Stable right hydrosalpinx status post hysterectomy.
[2025-05-01 14:10] LABS: Bacteria,Urine 3+ /lpf; Mucus,Urine 2+ /lpf
--- NOTE | 2025-05-01 14:48 | PC.NURSE ---
pt is in ultrasound currently
--- NOTE | 2025-05-04 06:02 | PC.NURSE ---
Duane solo per Dr. Britton
== END 2025-05-01 16:01 | disposition home or self-care (01) ==
PROVIDERS: Physician Assistant; Emergency Provider Student in an Organized Health Care Education/Training Program; PCP Internal Medicine
DX: R10.31 Right lower quadrant pain (principal); R10.32 Left lower quadrant pain; N39.0 Urinary tract infection, site not specified; K59.00 Constipation, unspecified; R35.0 Frequency of micturition; R39.15 Urgency of urination; N70.91 Salpingitis, unspecified; B96.4 Proteus (mirabilis) (morganii) as the cause of diseases classified elsewhere
CPT/HCPCS: 74177; 76830; 80053; 81001; 83605; 83690; 85025; 87086; 87088; 87186; 87491; 87591; 87661; 96361; 96374; 96375; 96376; 99285; J2270; J2405; J7030; Q9967

== ENCOUNTER 2025-05-03 15:09 | Outpatient (CLI) | payer OTHER, SELFPAY ==
--- OUTSIDE RECORDS SUMMARY | 2025-05-03 15:17 | XMS_ITS | Encounter Summary ---
Author Organization [employer] ([place], [place], [place], [place], [place]) Address [address] [place] [address] Care Team Providers Care Rivet Hole Machine Operator Name Role Phone Unavailable Primary Care Provider Unavailabl e Encounter Details Date Type Department Care Team (Late st Contact Info) Description 04/19/2020 Transcribed Document [facility] [place] [facility] [place] [address] ProviderEder MD [address] [place] [address] Social History Tobacco Use Types [...] EEG-video monitoring was performed using the 32-channel [employer] monitoring system. The seizure detection computer was [...] dysfunction in the left anterior temporal region. /[id number] MD BENJI Cabrera/AQ / BENJI / MODL /[id number] Electronically signed by Jimmy Feliciano Conversion Screw Machine Adjuster Automatic Cerner at 10/17/2022 5:59 PM CDT documented in this encounter Plan of Treatment Not on file documented as of this encounter Visit Diagnoses Not on filedocumented in this encounter
--- OUTSIDE RECORDS SUMMARY | 2025-05-03 15:17 | XMS_ITS | Encounter Summary ---
Author Organization [employer] ([place], [place], [place], [place], [place]) Address [address] [place] [address] Care Team Providers Care Inpatient Pharmacist Name Role Phone Unavailable Primary Care Provider Unavailabl e Encounter Details Date Type Department Care Team (Late st Contact Info) Description 04/17/2020 Transcribed Document [facility] [place] Medicine [address] [place] [address] ProviderEder MD [address] [place] [address] Social History Tobacco Use Types [...] form. Electronically signed by Jimmy Feliciano Conversion Certified Registered Nurse Practitioner Cerner at 10/18/2022 12:50 PM CDT documented in this encounter Plan of Treatment Not on file documented as of this encounter Visit Diagnoses Not on filedocumented in this encounter
--- OUTSIDE RECORDS SUMMARY | 2025-05-03 15:17 | XMS_ITS | Clinical Summary ---
Author Organization [facility] Address [address] [place] [address] Care Team Providers Care Mold Laminator Name Role Phone Unavailable Primary Care Provider [...]
--- OUTSIDE RECORDS SUMMARY | 2025-05-03 15:17 | XMS_ITS | Encounter Summary ---
Author Organization [employer] ([place], [place], [place], [place], [place]) Address [address] [place] [address] Care Team Providers Care Crystallizer Operator Name Role Phone Unavailable Primary Care Provider Unavailabl e Encounter Details Date Type Department Care Team (Late st Contact Info) Description 04/19/2020 Transcribed Document [facility] [place] [address] [place] [address] ProviderEder MD [address] [place] [address] Social History Tobacco Use Types [...]
--- OUTSIDE RECORDS SUMMARY | 2025-05-03 15:17 | XMS_ITS | Encounter Summary ---
Author Organization [employer] ([place], [place], [place], [place], [place]) Address [address] [place] [address] Care Team Providers Care Digital Account Supervisor Name Role Phone Unavailable Primary Care Provider Unavailabl e Encounter Details Date Type Department Care Team (Late st Contact Info) Description 04/19/2020 Transcribed Document [facility] [place] [facility] [place] [address] ProviderEder MD [address] [place] [address] Social History Tobacco Use Types [...] EEG-video monitoring was performed using the 32-channel [email or web address] monitoring system. The seizure detection computer was [...] dysfunction in the left anterior temporal region. /[id number] MD BENJI Cabrera/NUSRAT / TAF / MODL /[id number] documented in this encounter Plan of Treatment Not on file documented as of this encounter Visit Diagnoses Not on filedocumented in this encounter
--- OUTSIDE RECORDS SUMMARY | 2025-05-03 15:17 | XMS_ITS | Encounter Summary ---
Author Organization [employer] ([place], [place], [place], [place], [place]) Address [address] [place] [address] Care Team Providers Care Water Commissioner Name Role Phone Unavailable Primary Care Provider Unavailabl e Encounter Details Date Type Department Care Team (Late st Contact Info) Description 04/19/2020 Transcribed Document [facility] [place] [facility] [place] [address] ProviderEder MD [facility] [place] [address] Social History Tobacco Use Types [...] Evaluation : Verbalizes understanding Education Comment : Correction Monitoring on the EMU Jeanne Pryor RN - 04/19/2020 13:18 EDT Electronically signed by Braden, [facility] Conversion Continuous Drier Operator Cerner at 10/17/2022 5:55 PM CDT documented in this encounter Plan of Treatment Not on file documented as of this encounter Visit Diagnoses Not on filedocumented in this encounter
--- OUTSIDE RECORDS SUMMARY | 2025-05-03 15:17 | XMS_ITS | Encounter Summary ---
Author Organization [employer] ([place], [place], [place], [place], [place]) Address [address] [place] [address] Care Team Providers Care Complaint Analyst Name Role Phone Unavailable Primary Care Provider Unavailabl e Encounter Details Date Type Department Care Team (Late st Contact Info) Description 04/17/2020 Transcribed Document [facility] [place] [address] [place] [address] ProviderEder MD [address] [place] [address] Social History Tobacco Use Types [...] EDT Electronically signed by Jimmy Feliciano Conversion Steel Rule Die Maker Apprentice Cerner at 10/17/2022 5:48 PM CDT documented in this encounter Plan of Treatment Not on file documented as of this encounter Visit Diagnoses Not on filedocumented in this encounter
--- OUTSIDE RECORDS SUMMARY | 2025-05-03 15:17 | XMS_ITS | Encounter Summary ---
Author Organization [employer] ([place], [place], [place], [place], [place]) Address [address] [place] [address] Care Team Providers Care Pipe Machine Operator Name Role Phone Unavailable Primary Care Provider Unavailabl e Encounter Details Date Type Department Care Team (Late st Contact Info) Description 04/18/2020 Transcribed Document [facility] [place] [address] [place] [address] ProviderEder MD [address] [place] [address] Social History Tobacco Use Types [...] 2 mg, IV Push, Q8H, PRN: Seizures [place] 7.5 mg-325 mg oral tablet: 1 Tab, Oral, Q4H, PRN: Pain (Moderate 4-6) Zofran: 4 mg, IV Push, Q6H, PRN: Nausea/Vomiting albuterol 5 mg/mL (0.5%) inhalation solution: 2.5 mg, 0.5 mL, Nebulized Inhalation, Q6H, PRN: Wheezing desvenlafaxine: 50 mg, Oral, At Bedtime Pending Complete influenza virus vaccine, inactivated: 0.5 mL, IntraMuscular, [id number] Documented Medications Documented Biofreeze: 1 Application, Topical, [...] list: Medical Allergic rhinitis / SNOMED CT 361237807 / Confirmed horse shoe shaped kidney / Confirmed Fasting hypoglycemia / SNOMED CT 55610077 / Confirmed Wears eyeglasses / SNOMED CT 571095980 / Confirmed Asthma / SNOMED CT 362006071 / Confirmed H/O bronchitis / SNOMED CT 548436931 / Confirmed H/O: pneumonia / SNOMED CT 749775346 / Confirmed Hemorrhoids / SNOMED CT 267770609 / Confirmed Renal calculus / SNOMED CT 153233379 / Confirmed Urinary tract infection / SNOMED CT 661950217 / Confirmed Arthritis / SNOMED CT 5890375 / Confirmed Back pain / SNOMED CT 108307682 / Confirmed Restless legs syndrome / SNOMED CT 10874223 / Confirmed Cervical disc disease with myelopathy / SNOMED CT 536972612 / Confirmed Migraine / SNOMED CT 32733496 / Confirmed Concussion / SNOMED CT 858617750 / Confirmed Acute anxiety / SNOMED CT 88502737 / Confirmed History of panic attacks / SNOMED CT 241438400 / Confirmed 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 Forrest Weight, est lb 127 lb Weight, est oz 6 oz Estimated Clinical Dosing Weight 57.9 kg [employer] Body Weight 52 kg Weight Source Stated [...] 2. Encouraged increase in level of activity. Electronically signed by Jimmy Feliciano Conversion Advance Seal Delivery System Maintainer Cerner at 10/17/2022 5:54 PM CDT documented in this encounter Plan of Treatment Not on file documented as of this encounter Visit Diagnoses Not on filedocumented in this encounter
--- OUTSIDE RECORDS SUMMARY | 2025-05-03 15:17 | XMS_ITS | Encounter Summary ---
Author Organization [employer] ([place], [place], [place], [place], [place]) Address [address] [place] [address] Care Team Providers Care Sole Dyer Name Role Phone Unavailable Primary Care Provider Unavailabl e Encounter Details Date Type Department Care Team (Late st Contact Info) Description 04/19/2020 Transcribed Document [facility] [place] Medicine [address] [place] [address] ProviderEder MD [facility] [place] [address] Social History Tobacco Use Types [...] Eder ProviderMD - 04/19/2020 12:17 PM CDT [address] , [place] [address] Patient Copy Patient Information: Name: VANE RAYA Current Date: 04/19/2020 12:17:27 : 1975 Patient Address: [address] [place] [address] [address] [place] [id number] Patient Attending Physician: HANANE WOLFE MD-MANOJ Primary Care Provider: FLASH SANTANA Primary Care Provider Phone: Discharge Diagnosis: Nonepileptic episode Comment: Follow-up Instructions: With: Address: When: Hattie Diaz [address] [place] [address] Business (1) Within 3 months Discharge Instructions: [...] Assistance with quitting is available by contacting 4-782-IOUY-NOW. This is a free resource providing counseling, [...] sure to sign up for the [facility] patient portal, which gives you 20/01 access to your medical information ??? including these discharge instructions ??? using your computer, smartphone, or tablet. Just go to [employer] to get started. Questions? Call . [facility] would like to thank you for allowing us to assist you with your healthcare needs. GEORGES Cardona REBECCA JANE, (or tour sales representative) have received the above patient education materials/instructions and have verbalized understanding: Patient Signature _ Date/Time Patient Elderly Caregiver Signature (if needed) Date/Time Clinician/Hospital Elderly Caregiver Signature (if needed) Date/Time documented in this encounter Plan of Treatment Not on file documented as of this encounter Visit Diagnoses Not on filedocumented in this encounter
--- OUTSIDE RECORDS SUMMARY | 2025-05-03 15:17 | XMS_ITS | Encounter Summary ---
Author Organization [employer] ([place], [place], [place], [place], [place]) Address [address] [place] [address] Care Team Providers Care Workgroup Leader Name Role Phone Unavailable Primary Care Provider Unavailabl e Encounter Details Date Type Department Care Team (Late st Contact Info) Description 04/19/2020 Transcribed Document [facility] [place] [address] [place] [address] ProviderEder MD [address] [place] [address] Social History Tobacco Use Types [...] if you have a seizure. ??? Take kqpo-tyw-cbsclin and prescription medicines only as told by [...] 08/01/2006 Document Revised: 05/29/2018 Document Reviewed: 03/28/2017 [email or web address] Patient Education ? 2020 [email or web address] Electronically signed by Jimmy Feliciano Conversion Bilingual Inside Sales Representative Josefa at 10/17/2022 6:01 PM CDT documented in this encounter Plan of Treatment Not on file documented as of this encounter Visit Diagnoses Not on filedocumented in this encounter
--- OUTSIDE RECORDS SUMMARY | 2025-05-03 15:17 | XMS_ITS | Encounter Summary ---
Author Organization [employer] ([place], [place], [place], [place], [place]) Address [address] [place] [address] Care Team Providers Care Hatchery Attendant Name Role Phone Unavailable Primary Care Provider Unavailabl e Encounter Details Date Type Department Care Team (Late st Contact Info) Description 04/18/2020 Transcribed Document [facility] [place] [address] [place] [address] ProviderEder MD [address] [place] [address] Social History Tobacco Use Types [...] Spiritual Care Spiritual Care Referred by : [place] Worker initiated Reason for Visit : Initial Ministry [...]
--- OUTSIDE RECORDS SUMMARY | 2025-05-03 15:17 | XMS_ITS | Encounter Summary ---
Author Organization [employer] ([place], [place], [place], [place], [place]) Address [address] [place] [address] Care Team Providers Care Direct Selling Counselor Name Role Phone Unavailable Primary Care Provider Unavailabl e Encounter Details Date Type Department Care Team (Late st Contact Info) Description 04/19/2020 Transcribed Document [facility] [place] [facility] [place] [address] ProviderEder MD [address] [place] [address] Social History Tobacco Use Types [...] Normal cranial nerves. Normal motor exam. Normal ouinqo-jx-labw. DISCHARGE INSTRUCTIONS: 1. No driving. 2. Divalproex sodium 500 mg daily. 3. Albuterol 3 mL inhalation as needed. 4. Pristiq 50 mg daily. 5. Diazepam p.r.n. 6. Biofreeze one application three times daily as needed. 7. Follow up with Dr. Diaz within 3 months. /[id number] MD BENJI Cabrera/AQ / BENJI / MODL /[id number] Electronically signed by Braden [facility] Conversion Community Services Manager Cerner at 10/17/2022 5:52 PM CDT documented in this encounter Plan of Treatment Not on file documented as of this encounter Visit Diagnoses Not on filedocumented in this encounter
--- OUTSIDE RECORDS SUMMARY | 2025-05-03 15:17 | XMS_ITS | Encounter Summary ---
Author Organization [employer] ([place], [place], [place], [place], [place]) Address [address] [place] [address] Care Team Providers Care Rheostat Assembler Name Role Phone Unavailable Primary Care Provider Unavailabl e Encounter Details Date Type Department Care Team (Late st Contact Info) Description 04/18/2020 Transcribed Document [facility] [place] [facility] [place] [address] ProviderEder MD [address] [place] [address] Social History Tobacco Use Types [...] EEG-video monitoring was performed using the 32-channel [employer] monitoring system. The seizure detection computer was [...] dysfunction in the left anterior temporal region. /[id number] Mamadou Campa MD TAF/AQ / TAF / MODL /[id number] Electronically signed by Jimmy Feliciano Conversion Can Filling And Closing Machine Tender Cerner at 10/17/2022 5:52 PM CDT documented in this encounter Plan of Treatment Not on file documented as of this encounter Visit Diagnoses Not on filedocumented in this encounter
--- OUTSIDE RECORDS SUMMARY | 2025-05-03 15:17 | XMS_ITS | Encounter Summary ---
Author Organization [email or web address] ([place], [place], [place], [place], [place]) Address [address] [place] [address] Care Team Providers Care Chocolate Temperer Name Role Phone Unavailable Primary Care Provider Unavailabl e Encounter Details Date Type Department Care Team (Late st Contact Info) Description 04/17/2020 Transcribed Document [facility] [place] [address] [place] [address] ProviderEder MD [address] [place] [address] Social History Tobacco Use Types [...] Performed On: 04/17/2020 10:42 EDT by ASHTYN PRISET PHARMACIST-MEDICATION RECON Meds to Bed Enrollment Patient Enrollment Decision: : Yes/enroll in meds to bed program ASHTYN PRIEST PHARMACIST-MEDICATION RECON - 04/17/2020 11:35 EDT Electronically signed by Jimmy Feliciano Conversion Embedded Firmware Developer Cerkimberly at 10/17/2022 6:03 PM CDT documented in this encounter Plan of Treatment Not on file documented as of this encounter Visit Diagnoses Not on filedocumented in this encounter
--- OUTSIDE RECORDS SUMMARY | 2025-05-03 15:17 | XMS_ITS | Encounter Summary ---
Author Organization [employer] ([place], [place], [place], [place], [place]) Address [address] [place] [address] Care Team Providers Care Hearing Specialist Name Role Phone Unavailable Primary Care Provider Unavailabl e Encounter Details Date Type Department Care Team (Late st Contact Info) Description 04/19/2020 Transcribed Document [facility] [place] [facility] [place] [address] ProviderEder MD [address] [place] [address] Social History Tobacco Use Types [...] On: 04/19/2020 13:27 EDT by ALESSIO MAXWELL, RN-Production Illustrator Final Discharge Planning Discharge Arrangements : Patient [...] : Yes Discharge To Care Management : Home/Residential/Care Home or Self Care -01 ALESSIO MAXWELL, RN-Production Illustrator - 04/19/2020 13:27 EDT Final Narrative Note Final Narrative Note : Pt to discharge to home. No discharge needs noted. ALESSIO MAXWELL RN-Production Illustrator - 04/19/2020 13:27 EDT documented in this encounter Plan of Treatment Not on file documented as of this encounter Visit Diagnoses Not on filedocumented in this encounter
--- OUTSIDE RECORDS SUMMARY | 2025-05-03 15:17 | XMS_ITS | Encounter Summary ---
Author Organization [employer] ([place], [place], [place], [place], [place]) Address [address] [place] [address] Care Team Providers Care Director Of Payroll Name Role Phone Unavailable Primary Care Provider Unavailabl e Encounter Details Date Type Department Care Team (Late st Contact Info) Description 04/17/2020 Transcribed Document [facility] [place] [facility] [place] [address] ProviderEder MD [address] [place], [place] [...] the upper and lower extremities. COORDINATION: Normal xswjzt-lu-tkpm. Normal rapid alternating movements. IMPRESSION: Ms. Raya [...] mg IV for repetitive or prolonged seizures. /[id number] MD BENJI Cabrera/NUSRAT / TAF / MODL Electronically signed by Braden [facility] Conversion Will Call Order Clerk Josefa at 10/17/2022 5:57 PM CDT documented in this encounter Plan of Treatment Not on file documented as of this encounter Visit Diagnoses Not on filedocumented in this encounter
--- OUTSIDE RECORDS SUMMARY | 2025-05-03 15:17 | XMS_ITS | Encounter Summary ---
Author Organization [employer] ([place], [place], [place], [place], [place]) Address [address] [place] [address] Care Team Providers Care Arc Cutter Plasma Arc Name Role Phone Unavailable Primary Care Provider Unavailabl e Encounter Details Date Type Department Care Team (Late st Contact Info) Description 04/19/2020 Transcribed Document [facility] Family Medicine [place] [address] ProviderEder MD [address] [place] [address] Social History Tobacco Use Types [...] MD - 04/19/2020 12:41 PM CDT [facility] [place] [address] VANE RAYA :1975 Visit Time:04/17/2020 Your [...] When Within 3 months Where: [address] [place] [address]- Business (1) Medications What How Much When [...] if you have a seizure. ??? Take kfel-zrm-birlqil and prescription medicines only as told by [...] 08/01/2006 Document Revised: 05/29/2018 Document Reviewed: 03/28/2017 [employer] Patient Education ?? 2020 [employer]. Emergency Awareness and Preventative Care [place] is [...] Assistance with quitting is available by contacting 4-515-RWEA-NOW. This is a free resource providing counseling, [...] was given the opportunity to ask questions. Patient/Catalogue And Special Products Manager Name: Patient/Catalogue And Special Products Manager Signature: Relationship to Patient: Clinician/Hospital Catalogue And Special Products Manager Signature: Date: Electronically signed by Jimmy Feilciano Conversion Memory Care Program Resident Cerner at 10/17/2022 6:15 PM CDT documented in this encounter Plan of Treatment Not on file documented as of this encounter Visit Diagnoses Not on filedocumented in this encounter
--- OUTSIDE RECORDS SUMMARY | 2025-05-03 15:17 | XMS_ITS | Encounter Summary ---
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 SPoke with pt, reports good appetite and intake, really enjoying the food (100% x 3 meals). 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
--- OUTSIDE RECORDS SUMMARY | 2025-05-03 15:17 | XMS_ITS | Encounter Summary ---
Author Organization [employer] ([place], [place], [place], [place], [place]) Address [address] [place] [address] Care Team Providers Care Log Haul Chain Feeder Name Role Phone Unavailable Primary Care Provider Unavailabl e Encounter Details Date Type Department Care Team (Late st Contact Info) Description 04/18/2020 Transcribed Document [facility] [place] [address] [place] [address] ProviderEder MD [address] [place] [address] Social History Tobacco Use [...] Policy Numbers : Insurance 1 [facility] Policy Number: [id number] Authorization Number: NPR Insurance Primary Name : [facility] [id number] Authorized Service Begin Date-Primary : 04/17/2020 EDT Observation Authorization Nbr-Primary : [id number] outpatient Authorization Comments-Primary : ref # per scanned document Historical Authorization Comments-Primary : No Authorization Comments Found [facility] PATTEN RN-Utilization Review - 04/18/2020 8:52 EDT Electronically signed by Braden [facility] Conversion Upsetting Machine Operator Cerner at 10/17/2022 6:00 PM CDT documented in this encounter Plan of Treatment Not on file documented as of this encounter Visit Diagnoses Not on filedocumented in this encounter
--- OUTSIDE RECORDS SUMMARY | 2025-05-03 15:17 | XMS_ITS | Referral Summary ---
Author Organization [employer] ([place], [place], [place], [place], [place]) Address [address] [place] [address] Care Team Providers Care Real Estate Underwriter Name Role Phone Unavailable Primary Care Provider [...]
--- OUTSIDE RECORDS SUMMARY | 2025-05-03 15:17 | XMS_ITS | Encounter Summary ---
Author Organization [employer] ([place], [place], [place], [place], [place]) Address [address] [place] [address] Care Team Providers Care Major Gifts Officer Name Role Phone Unavailable Primary Care Provider Unavailabl e Encounter Details Date Type Department Care Team (Late st Contact Info) Description 04/17/2020 Transcribed Document [facility] [place] [facility] [place] [address] ProviderEder MD [facility] [place] [place] [address] Social History Tobacco Use Types [...] #2 Relationship : na Primary Language : Palauan Preferred Communication Mode : Verbal Communication Barrier : None Composition Worker Needed : No Jeanne Pryor RN - [...] Scale Risk Level : 25-45 Medium Risk [place] Fall Interventions : Adequate lighting, Assistive devices [...] Source : Stated Height Entry Format : [place] Height, Feet : 5 ft(Converted to: 152 cm, 60 Inch) Height, Inches : 3 Inch(Converted to: 0 ft 3 Inch, 7.62 cm) Clinical Height : 160.02 cm Weight Source : Stated [place]aud Body Weight : 52 kg Jeanne Pryor RN - 04/17/2020 11:47 EDT Estimated Weight Type of Weight Measurement Est : [place] Weight, est lb : 127 lb(Converted to: [...] Jeanne Pryor RN - 04/17/2020 11:47 EDT [place] Suicide Severity Rating Scale (C-SSRS) CSSRS Past [...] : Cell phone, Wallet, Other: debit card, line analyst Personal Items Disposition : With patient Medication Disposition : With patient Medication Brought With Patient : Yes Jeanne Pryor RN - 04/17/2020 11:47 EDT documented in this encounter Plan of Treatment Not on file documented as of this encounter Visit Diagnoses Not on filedocumented in this encounter
--- OUTSIDE RECORDS SUMMARY | 2025-05-03 15:18 | XMS_ITS | Clinical Summary ---
Author Organization [employer] ([place], [place], [place], [place], [place]) Address [address] [place] [address] Care Team Providers Care Rib Knitter Name Role Phone Unavailable Primary Care Provider [...]
--- OUTSIDE RECORDS SUMMARY | 2025-05-03 15:19 | XMS_ITS ---
Care Plan - [facility], [facility] Created on: May 03, 2025 Loren Raya : 1975 Sex: Female Author Organization [facility] Address [address] [place] [id number] Phone Care Team Providers Care Cash Clerk Name Role Phone Edwin Mccoy MD Unavailable [phone]
--- OUTSIDE RECORDS SUMMARY | 2025-05-03 15:19 | XMS_ITS | Clinical Summary ---
Author Organization [facility] Address [address] [place] [address] Care Team Providers Care Home Weatherizing Worker Name Role Phone NoelBhumi Ny ASHRAF Primary Care Provider [phone] Allergies Active Allergy Reactions Criticality Noted Date [...] crush, chew, or split. Active HYDROcodone-delgado taminophen ([place]) 5-325 MG tablet Take 1 tablet by [...] any time in the past 12 m [facility], were you homeless or living in a halfway (including now)? No 11/25/2024 Utilities Answer Date Recorded In the past 12 months has th e nWay, gas, oil, or water [employer] threatened to shut off services in your [...] UKY-Depression Screening 1975 UKY-Infant/Child/Adol SDOH Screenings 1975 QLW-AXADH-62 Vaccine (#1) 1979 UKY-DTaP,Tdap,and Td Vaccine s [...] Reactive Non Reactive 11/23/2024 1:41 AM EDT [facility] Comment:Screening for HIV 1 & 2 antibodies, and P24 antigen is NONREACTIVE. No confirmatory testing is required. Blood Venous blood specimen / Unknown Venipuncture / Unknown 11/23/2024 12:36 AM EDT 11/23/2024 1:03 AM EDT Rudy Desai MD LAB BLOOD ORDERABLES Final Re sult Performing Organization Address City/[facility]/ZIP Co de Phone Number [facility] [address] [place] [address] * Hepatitis C Antibody - ED (11/23/2024 12:36 AM EDT) Hepatitis C Antibody Negative Negative 11/23/2024 1:44 AM EDT [facility] Blood Venous blood specimen / Unknown Venipuncture / Unknown 11/23/2024 12:36 AM EDT 11/23/2024 1:03 AM EDT Rudy Desai MD LAB BLOOD ORDERABLES Final Re sult [facility] [address] [place] [address] from Last 3 Months or Most Recently Relevant to Health Maintenance Insurance [address] [place], [place] [address] [employer] [facility] MEDICAID Advance Directives * Full Code (Latest Code Status on File) Date Activated Date Inactivated Comments 11/23/2024 2:32 PM 11/26/2024 5:07 PM Question Answer Comments I have reviewed the capacity from the link above and, if needed, have updated to appropriate status: Yes Care Teams Home Weatherizing Worker Relationship Specialty Start Date End Date Bhumi Cohen, TENNIS INSTRUCTOR [address] [place] [address] PCP - General 11/25/24
--- OUTSIDE RECORDS SUMMARY | 2025-05-03 15:19 | XMS_ITS | Clinical Summary ---
Author Organization [facility] Address [address] [place] [id number] Care Team Providers Care Dermatology Technician Name Role Phone None Primary Care Provider [...] age to complete this topic Care Teams Dermatology Technician Relationship Specialty Start Date End Date None PCP - General 01/16/08
[2025-05-03 16:43] LABS: Free Thyroxine Index 2.4 ug/dL (5.93-13.13); T4 (Thyroxine) 7.9 ug/dl (5.53-11.0); Triiodothryronine (T3) Uptake 31 % (23.5-40.5)
[2025-05-03 16:57] LABS: Thyroid Stimulating Hormone 1.19 uIU/mL (0.465-4.68)
[2025-05-03 17:17] LABS: Vitamin B12 928 pg/mL (239-931)
[2025-05-04 13:17] LABS: FSH 12.8 mIU/mL (.); LH 4.5 mIU/mL (.)
== END 2025-05-03 23:59 | disposition home or self-care (01) ==
LOC: LAB 15:10
PROVIDERS: PCP Internal Medicine; Visit Provider Nurse Practitioner Obstetrics & Gynecology
DX: E03.9 Hypothyroidism, unspecified (principal); R10.32 Left lower quadrant pain
CPT/HCPCS: 36415; 82607; 82652; 82670; 83001; 83002; 84436; 84443; 84479

== ENCOUNTER 2025-05-10 19:52 | Observation (INO) | payer OTHER, SELFPAY ==
[2025-05-10 19:54] VITALS: BP 137/83; PULSE 98; RESP 18; TEMP 36.9; O2SAT 101; BMI 26.5
--- OUTSIDE RECORDS SUMMARY | 2025-05-10 20:06 | XMS_ITS | Encounter Summary ---
Author Organization [employer] ([place], [place], [place], [place], [place]) Address [address] [place] [address] Care Team Providers Care Maintenance Services Dispatcher Name Role Phone Unavailable Primary Care Provider Unavailabl e Encounter Details Date Type Department Care Team (Late st Contact Info) Description 04/19/2020 Transcribed Document [facility] [place] [facility] [place] [address] ProviderEder MD [address] [place] [address] Social History Tobacco Use Types [...] EEG-video monitoring was performed using the 32-channel [employer] monitoring system. The seizure detection computer was [...] dysfunction in the left anterior temporal region. /[id number] MD BENJI Cabrera/AQ / BENJI / MODL /[id number] Electronically signed by Jimmy Feliciano Conversion Biofuels Engineering Manager Cerner at 10/17/2022 5:59 PM CDT documented in this encounter Plan of Treatment Not on file documented as of this encounter Visit Diagnoses Not on filedocumented in this encounter
--- OUTSIDE RECORDS SUMMARY | 2025-05-10 20:06 | XMS_ITS | Encounter Summary ---
Author Organization [employer] ([place], [place], [place], [place], [place]) Address [address] [place] [address] Care Team Providers Care Greenskeeper Laborer Name Role Phone Unavailable Primary Care Provider Unavailabl e Encounter Details Date Type Department Care Team (Late st Contact Info) Description 04/17/2020 Transcribed Document [facility] [place] [address] [place] [address] ProviderEder MD [address] [place] [address] Social History Tobacco Use Types [...]
--- OUTSIDE RECORDS SUMMARY | 2025-05-10 20:06 | XMS_ITS | Encounter Summary ---
Author Organization [employer] ([place], [place], [place], [place], [place]) Address [address] [place] [address] Care Team Providers Care Assistant Floor Covering Printer Name Role Phone Unavailable Primary Care Provider Unavailabl e Encounter Details Date Type Department Care Team (Late st Contact Info) Description 04/19/2020 Transcribed Document [facility] [place] [facility] [place] [address] ProviderEder MD [address] [place] [address] Social History Tobacco Use Types [...] Mathews MD - 04/19/2020 12:41 PM CDT [facility] [place] [address] VANE RAYA :1975 Visit Time:04/17/2020 Your [...] When Within 3 months Where: [address] [place] [address]- Business (1) Medications What How Much When [...] if you have a seizure. ??? Take qrgm-omt-lhyklse and prescription medicines only as told by [...] 08/01/2006 Document Revised: 05/29/2018 Document Reviewed: 03/28/2017 [employer] Patient Education ?? 2020 [employer]. Emergency Awareness and Preventative Care STROKE is [...] Assistance with quitting is available by contacting 5-940-EGHR-NOW. This is a free resource providing counseling, [...] was given the opportunity to ask questions. Patient/Maintenance Construction Helper Name: Patient/Maintenance Construction Helper Signature: Relationship to Patient: Clinician/Hospital Maintenance Construction Helper Signature: Date: documented in this encounter Plan of Treatment Not on file documented as of this encounter Visit Diagnoses Not on filedocumented in this encounter
--- OUTSIDE RECORDS SUMMARY | 2025-05-10 20:06 | XMS_ITS | Clinical Summary ---
Author Organization [facility] Address [address] [place] [address] Care Team Providers Care Neurology Technician Name Role Phone Unavailable Primary Care [...]
--- OUTSIDE RECORDS SUMMARY | 2025-05-10 20:06 | XMS_ITS | Encounter Summary ---
Author Organization [employer] ([place], [place], [place], [place], [place]) Address [address] [place] [address] Care Team Providers Care Molasses Preparer Name Role Phone Unavailable Primary Care Provider Unavailabl e Encounter Details Date Type Department Care Team (Late st Contact Info) Description 04/18/2020 Transcribed Document [facility] [place] Medicine [address] [place] [address] ProviderEder MD [address] [place] [address] Social History Tobacco Use Types [...] 2 mg, IV Push, Q8H, PRN: Seizures Galva 7.5 mg-325 mg oral tablet: 1 Tab, Oral, Q4H, PRN: Pain (Moderate 4-6) Zofran: 4 mg, IV Push, Q6H, PRN: Nausea/Vomiting albuterol 5 mg/mL (0.5%) inhalation solution: 2.5 mg, 0.5 mL, Nebulized Inhalation, Q6H, PRN: Wheezing desvenlafaxine: 50 mg, Oral, At Bedtime Pending Complete influenza virus vaccine, inactivated: 0.5 mL, IntraMuscular, [id number] Documented Medications Documented Biofreeze: 1 Application, Topical, [...] list: Medical Allergic rhinitis / SNOMED CT 964452635 / Confirmed horse shoe shaped kidney / Confirmed Fasting hypoglycemia / SNOMED CT 96193931 / Confirmed Wears eyeglasses / SNOMED CT 606083412 / Confirmed Asthma / SNOMED CT 295626411 / Confirmed H/O bronchitis / SNOMED CT 812406789 / Confirmed H/O: pneumonia / SNOMED CT 128209918 / Confirmed Hemorrhoids / SNOMED CT 032762534 / Confirmed Renal calculus / SNOMED CT 158709292 / Confirmed Urinary tract infection / SNOMED CT 145413244 / Confirmed Arthritis / SNOMED CT 7196599 / Confirmed Back pain / SNOMED CT 976670369 / Confirmed Restless legs syndrome / SNOMED CT 45394576 / Confirmed Cervical disc disease with myelopathy / SNOMED CT 800184189 / Confirmed Migraine / SNOMED CT 91822642 / Confirmed Concussion / SNOMED CT 139464715 / Confirmed Acute anxiety / SNOMED CT 53781147 / Confirmed History of panic attacks / SNOMED CT 036378442 / Confirmed Anxious depression / 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 Warner Weight, est lb 127 lb Weight, est oz 6 oz Estimated Clinical Dosing Weight 57.9 kg [place] Body Weight 52 kg Weight Source Stated [...]
--- OUTSIDE RECORDS SUMMARY | 2025-05-10 20:06 | XMS_ITS | Encounter Summary ---
Author Organization [employer] ([place], [place], [place], [place], [place]) Address [address] [place] [address] Care Team Providers Care Receiving And Processing Supervisor Name Role Phone Unavailable Primary Care Provider Unavailabl e Encounter Details Date Type Department Care Team (Late st Contact Info) Description 04/19/[address] [facility] [place] [address] [place] [address] ProviderEder MD [address] [place] [address] Social History Tobacco Use Types [...]
--- OUTSIDE RECORDS SUMMARY | 2025-05-10 20:06 | XMS_ITS | Encounter Summary ---
Author Organization [employer] ([place], [place], [place], [place], [place]) Address [address] [place] [address] Care Team Providers Care Fur Buyer Name Role Phone Unavailable Primary Care Provider Unavailabl e Encounter Details Date Type Department Care Team (Late st Contact Info) Description 04/19/2020 Transcribed Document [facility] [place] [address] [place] [address] ProviderEder MD [address] [place] [address] Social History Tobacco Use Types [...] if you have a seizure. ??? Take jxoa-gcz-xjkadbt and prescription medicines only as told by [...] 08/01/2006 Document Revised: 05/29/2018 Document Reviewed: 03/28/2017 [employer] Patient Education ? 2020 [employer] documented in this encounter Plan of Treatment Not on file documented as of this encounter Visit Diagnoses Not on filedocumented in this encounter
--- OUTSIDE RECORDS SUMMARY | 2025-05-10 20:06 | XMS_ITS | Encounter Summary ---
Author Organization [employer] ([place], [place], [place], [place], [place]) Address [address] [place] [address] Care Team Providers Care Bible Teacher Name Role Phone Unavailable Primary Care Provider Unavailabl e Encounter Details Date Type Department Care Team (Late st Contact Info) Description 04/19/2020 Transcribed Document [facility] [place] [address] ProviderEder MD [address] [place] [address] Social History Tobacco Use Types [...] Normal cranial nerves. Normal motor exam. Normal wpqdbe-jc-vtba. DISCHARGE INSTRUCTIONS: 1. No driving. 2. Divalproex sodium 500 mg daily. 3. Albuterol 3 mL inhalation as needed. 4. Pristiq 50 mg daily. 5. Diazepam p.r.n. 6. Biofreeze one application three times daily as needed. 7. Follow up with Dr. Diaz within 3 months. /[id number] MD BENJI Cabrera/AQ / BENJI / MODL /[id number] Electronically signed by Braden [facility] Conversion Waste Treatment Operator Cerner at 10/17/2022 5:52 PM CDT documented in this encounter Plan of Treatment Not on file documented as of this encounter Visit Diagnoses Not on filedocumented in this encounter
--- OUTSIDE RECORDS SUMMARY | 2025-05-10 20:06 | XMS_ITS | Encounter Summary ---
Author Organization [employer] ([place], [place], [place], [place], [place]) Address [address] [place] [address] Care Team Providers Care Pan Tank Worker Name Role Phone Unavailable Primary Care Provider Unavailabl e Encounter Details Date Type Department Care Team (Late st Contact Info) Description 04/18/2020 Transcribed Document [facility] [place] [address] [place] [address] ProviderEder MD [address] [place] [address] Social History Tobacco Use Types [...] Policy Numbers : Insurance 1 Health Plan: [facility] Policy Number: [id number] Authorization Number: NPR Insurance Primary Name : [facility] [id number] Authorized Service Begin Date-Primary : 04/17/2020 EDT Observation Authorization Nbr-Primary : [id number] outpatient Authorization Comments-Primary : ref # per scanned document Historical Authorization Comments-Primary : No Authorization Comments Found [facility] RN-Utilization Review - 04/18/2020 8:52 EDT Electronically signed by Braden [facility] Conversion Occupational Rehabilitation Aide Cerner at 10/17/2022 6:00 PM CDT documented in this encounter Plan of Treatment Not on file documented as of this encounter Visit Diagnoses Not on filedocumented in this encounter
--- OUTSIDE RECORDS SUMMARY | 2025-05-10 20:06 | XMS_ITS | Referral Summary ---
Author Organization [employer] ([place], [place], [place], [place], [place]) Address [address] [place] [address] Care Team Providers Care Clinical Implementation Specialist Name Role Phone Unavailable Primary Care [...]
--- OUTSIDE RECORDS SUMMARY | 2025-05-10 20:06 | XMS_ITS | Encounter Summary ---
Author Organization [employer] ([place], [place], [place], [place], [place]) Address [address] [place] [address] Care Team Providers Care Credit Collections Clerk Name Role Phone Unavailable Primary Care Provider Unavailabl e Encounter Details Date Type Department Care Team (Late st Contact Info) Description 04/19/2020 Transcribed Document [facility] [place] Family Medicine [facility] [place] [address] ProviderEder MD [address] [place] [address] Social History Tobacco Use Types [...] EEG-video monitoring was performed using the 32-channel [employer] monitoring system. The seizure detection computer was [...] dysfunction in the left anterior temporal region. /[id number] MD BENJI Cabrera/NUSRAT / TAF / MODL /[id number] documented in this encounter Plan of Treatment Not on file documented as of this encounter Visit Diagnoses Not on filedocumented in this encounter
--- OUTSIDE RECORDS SUMMARY | 2025-05-10 20:06 | XMS_ITS | Encounter Summary ---
Author Organization [employer] ([place], [place], [place], [place], [place]) Address [address] [place] [address] Care Team Providers Care Uniform Designer Name Role Phone Unavailable Primary Care Provider Unavailabl e Encounter Details Date Type Department Care Team (Late st Contact Info) Description 04/17/2020 Transcribed Document [facility] [place] Medicine [facility] [place] [address] ProviderEder MD [facility] [place] [address] Social History Tobacco Use Types [...] #2 Relationship : na Primary Language : Citizen [place] Preferred Communication Mode : Verbal Communication Barrier : None Buggy Man Needed : No Jeanne Pryor RN - [...] Scale Risk Level : 25-45 Medium Risk [place] Fall Interventions : Adequate lighting, Assistive devices [...] Source : Stated Height Entry Format : [place] Height, Feet : 5 ft(Converted to: 152 cm, 60 Inch) Height, Inches : 3 Inch(Converted to: 0 ft 3 Inch, 7.62 cm) Clinical Height : 160.02 cm Weight Source : Stated [place] Body Weight : 52 kg Jeanne Pryor RN - 04/17/2020 11:47 EDT Estimated Weight Type of Weight Measurement Est : [place] Weight, est lb : 127 lb(Converted to: [...] Jeanne Pryor RN - 04/17/2020 11:47 EDT [place] Suicide Severity Rating Scale (C-SSRS) CSSRS Past [...] : Cell phone, Wallet, Other: debit card, sales and marketing associate Personal Items Disposition : With patient Medication Disposition : With patient Medication Brought With Patient : Yes Jeanne Pryor RN - 04/17/2020 11:47 EDT documented in this encounter Plan of Treatment Not on file documented as of this encounter Visit Diagnoses Not on filedocumented in this encounter
--- OUTSIDE RECORDS SUMMARY | 2025-05-10 20:06 | XMS_ITS | Encounter Summary ---
Author Organization [employer] ([place], [place], [place], [place], [place]) Address [address] [place] [address] Care Team Providers Care Absorption Operator Name Role Phone Unavailable Primary Care Provider Unavailabl e Encounter Details Date Type Department Care Team (Late st Contact Info) Description 04/18/2020 Transcribed Document [facility] [place] Family Medicine [address] [place] [address] ProviderEder MD [address] [place] [address] Social History Tobacco Use Types [...] Spiritual Care Spiritual Care Referred by : Dry Cell Battery Assembler initiated Reason for Visit : Initial Ministry [...]
--- OUTSIDE RECORDS SUMMARY | 2025-05-10 20:06 | XMS_ITS | Encounter Summary ---
Author Organization [employer] ([place], [place], [place], [place], [place]) Address [address] [place] [address] Care Team Providers Care Land Reclamation Specialist Name Role Phone Unavailable Primary Care Provider Unavailabl e Encounter Details Date Type Department Care Team (Late st Contact Info) Description 04/17/2020 Transcribed Document [facility] [place] Family Medicine [address] [place] [address] ProviderEder MD [address] [place] [address] Social History Tobacco Use Types [...]
--- OUTSIDE RECORDS SUMMARY | 2025-05-10 20:06 | XMS_ITS | Encounter Summary ---
Author Organization [employer] ([place], [place], [place], [place], [place]) Address [address] [place] [address] Care Team Providers Care Vibrating Screed Operator Name Role Phone Unavailable Primary Care Provider Unavailabl e Encounter Details Date Type Department Care Team (Late st Contact Info) Description 04/18/2020 Transcribed Document [facility] [place] Medicine [facility] [place] [address] ProviderEder MD [address] [place] [address] Social History Tobacco Use Types [...] EEG-video monitoring was performed using the 32-channel [employer] monitoring system. The seizure detection computer was [...] dysfunction in the left anterior temporal region. /[id number] Mamadou Campa MD TAF/AQ / TAF / MODL /[id number] documented in this encounter Plan of Treatment Not on file documented as of this encounter Visit Diagnoses Not on filedocumented in this encounter
--- OUTSIDE RECORDS SUMMARY | 2025-05-10 20:06 | XMS_ITS | Encounter Summary ---
Author Organization [employer] ([place], [place], [place], [place], [place]) Address [address] [place] [address] Care Team Providers Care Ship Purser Name Role Phone Unavailable Primary Care Provider Unavailabl e Encounter Details Date Type Department Care Team (Late st Contact Info) Description 04/17/2020 Transcribed Document [facility] [place] [facility] [place] [address] ProviderEder MD [address] [place] [address] Social History Tobacco Use Types [...] consult for MST >2 (14-23# weight loss well logging captain). SPoke with pt, reports good appetite and intake, really enjoying the food (100% x 3 meals). Pt reports decreased appetite well logging captain d/t depression and inability to get [...]
--- OUTSIDE RECORDS SUMMARY | 2025-05-10 20:06 | XMS_ITS | Encounter Summary ---
Author Organization [employer] ([place], [place], [place], [place], [place]) Address [address] [place] [address] Care Team Providers Care Track Oiler Name Role Phone Unavailable Primary Care Provider Unavailabl e Encounter Details Date Type Department Care Team (Late st Contact Info) Description 04/19/2020 Transcribed Document [facility] [place] Family Medicine [address] [place] [address] ProviderEder MD [facility] [place] [address] Social History Tobacco Use Types [...] Eder ProviderMD - 04/19/2020 12:17 PM CDT [address] , [place] [address] Patient Copy Patient Information: Name: VANE RAYA Current Date: 04/19/2020 12:17:27 : 1975 Patient Address: [address] [place] [address] [address] AUG[place]O STEVENSON [id number] Patient Attending Physician: HANANE WOLFE MD-MANOJ Primary Care Provider: FLASH SANTANA Primary Care Provider Phone: Discharge Diagnosis: Nonepileptic episode Comment: Follow-up Instructions: With: Address: When: Hattie Diaz [address] [place] [address] Business (1) Within 3 months Discharge Instructions: [...] Assistance with quitting is available by contacting [phone]-[phone]. This is a free resource providing counseling, [...] sure to sign up for the [facility] patient portal, which gives you 20/01 access to your medical information ??? including these discharge instructions ??? using your computer, smartphone, or tablet. Just go to [employer] to get started. Questions? Call . [facility] would like to thank you for allowing us to assist you with your healthcare needs. GEORGES Cardona REBECCA JANE, (or merchandiser retail representative) have received the above patient education materials/instructions and have verbalized understanding: Patient Signature _ Date/Time Patient Automation Lead Signature (if needed) Date/Time Clinician/Hospital Automation Lead Signature (if needed) Date/Time Electronically signed by Jimmy Feliciano Conversion Certified Real Estate Appraiser Josefa at 10/17/2022 5:58 PM CDT documented in this encounter Plan of Treatment Not on file documented as of this encounter Visit Diagnoses Not on filedocumented in this encounter
--- OUTSIDE RECORDS SUMMARY | 2025-05-10 20:06 | XMS_ITS | Encounter Summary ---
Author Organization [employer] ([place], [place], [place], [place]) Address [address] [place] [address] Care Team Providers Care Events Associate Name Role Phone Unavailable Primary Care Provider Unavailabl e Encounter Details Date Type Department Care Team (Late st Contact Info) Description 04/19/2020 Transcribed Document [facility] [place] [facility] [place] [address] ProviderEder MD [address] [place] [address] Social History Tobacco Use Types [...] On: 04/19/2020 13:27 EDT by ALESSIO MAXWELL, RN-Home School Coordinator Final Discharge Planning Discharge Arrangements : Patient [...] : Yes Discharge To Care Management : Home/Residential/Penitentiary or Self Care -01 ALESSIO MAXWELL, RN-Home School Coordinator - 04/19/2020 13:27 EDT Final Narrative Note Final Narrative Note : Pt to discharge to home. No discharge needs noted. ALESSIO MAXWELL RN-Home School Coordinator - 04/19/2020 13:27 EDT Electronically signed by Jimmy Feliciano Conversion Gastroenterology Technician Cerner at 10/17/2022 6:04 PM CDT documented in this encounter Plan of Treatment Not on file documented as of this encounter Visit Diagnoses Not on filedocumented in this encounter
--- OUTSIDE RECORDS SUMMARY | 2025-05-10 20:06 | XMS_ITS | Encounter Summary ---
Author Organization [employer] ([place], [place], [place], [place], [place]) Address [address] [place] [address] Care Team Providers Care Procurement Assistant Name Role Phone Unavailable Primary Care Provider Unavailabl e Encounter Details Date Type Department Care Team (Late st Contact Info) Description 04/17/2020 Transcribed Document [facility] [place] [facility] [place] [address] ProviderEder MD [address] [place] [address] Social History Tobacco Use Types [...] the upper and lower extremities. COORDINATION: Normal arukai-dc-vctn. Normal rapid alternating movements. IMPRESSION: Ms. Raya [...] mg IV for repetitive or prolonged seizures. /[id number] MD BENJI Cabrera/NUSRAT / TAF / MODL Electronically signed by Braden [facility] Conversion Delicatessen Department Manager Josefa at 10/17/2022 5:57 PM CDT documented in this encounter Plan of Treatment Not on file documented as of this encounter Visit Diagnoses Not on filedocumented in this encounter
--- OUTSIDE RECORDS SUMMARY | 2025-05-10 20:06 | XMS_ITS | Encounter Summary ---
Author Organization [employer] ([place], [place], [place], [place], [place]) Address [address] [place] [address] Care Team Providers Care Management Lecturer Name Role Phone Unavailable Primary Care Provider Unavailabl e Encounter Details Date Type Department Care Team (Late st Contact Info) Description 04/19/2020 Transcribed Document [facility] [place] [facility] [place] [address] ProviderEder MD [facility] [place] [address] Social History Tobacco Use [...] Evaluation : Verbalizes understanding Education Comment : Fdc Monitoring on the EMU Jeanne Pryor RN - 04/19/2020 13:18 EDT Electronically signed by Braden, [facility] Conversion Sales Developer Cerner at 10/17/2022 5:55 PM CDT documented in this encounter Plan of Treatment Not on file documented as of this encounter Visit Diagnoses Not on filedocumented in this encounter
--- OUTSIDE RECORDS SUMMARY | 2025-05-10 20:07 | XMS_ITS | Clinical Summary ---
Author Organization Healthcare Address [address] [id number] Care Team Providers Care Goodwill Representative Name Role Phone NoelBhumi Ny ASHRAF Primary Care Provider [phone] Allergies Active Allergy Reactions Criticality Noted Date [...] Do not crush, chew, or split. Active HYDROcodone-delgaod taminophen ([place]) 5-325 MG tablet Take 1 tablet by [...] any time in the past 12 m [facility], were you homeless or living in a half-way (including now)? No 11/25/2024 Utilities Answer Date Recorded In the past 12 months has th e [place], gas, oil, or water [employer] threatened to shut off services in your [...] [facility]-Depression Screening 1975 [facility]-Infant/Child/Adol SDOH Screenings 1975 [id number] Vaccine (#1) 1979 [facility]-DTaP,Tdap,and Td Vaccine s [...] ORDERABLES Final Re sult Performing Organization Address City/[facility]/ZIP Co de Phone Number [facility] [address] [place] [address] * Hepatitis C Antibody - ED (11/23/2024 12:36 AM EDT) Hepatitis C Antibody Negative Negative 11/23/2024 1:44 AM EDT [facility] Blood Venous blood specimen / Unknown Venipuncture / Unknown 11/23/2024 12:36 AM EDT 11/23/2024 1:03 AM EDT Rudy Desai MD LAB BLOOD ORDERABLES Final Re sult [facility] [address] [place] [address] from Last 3 Months or Most Recently Relevant to Health Maintenance Insurance [address] [place], [place] [address] [employer] [facility] MEDICAID Advance Directives * Full Code (Latest Code Status on File) Date Activated Date Inactivated Comments 11/23/2024 2:32 PM 11/26/2024 5:07 PM Question Answer Comments I have reviewed the capacity from the link above and, if needed, have updated to appropriate status: Yes Care Teams Goodwill Representative Relationship Specialty Start Date End Date Bhumi Cohen, METAL SOLDERER [address] [place] [address] PCP - General 11/25/24
--- OUTSIDE RECORDS SUMMARY | 2025-05-10 20:07 | XMS_ITS | Clinical Summary ---
Author Organization [facility] Address [address] [place] [address] Care Team Providers Care Guest Services Officer Name Role Phone None Primary Care Provider [...] age to complete this topic Care Teams Guest Services Officer Relationship Specialty Start Date End Date None PCP - General 01/16/08
--- OUTSIDE RECORDS SUMMARY | 2025-05-10 20:07 | XMS_ITS | Encounter Summary ---
Author Organization [employer] ([place], [place], [place], [place], [place]) Address [address] [place] [address] Care Team Providers Care Vocal Teacher Name Role Phone Unavailable Primary Care Provider Unavailabl e Encounter Details Date Type Department Care Team (Late st Contact Info) Description 04/17/2020 Transcribed Document [facility] [place] [address] [place] [address] ProviderEder MD [address] [place] [address] Social History Tobacco Use Types [...]
--- OUTSIDE RECORDS SUMMARY | 2025-05-10 20:07 | XMS_ITS | Clinical Summary ---
Author Organization [employer] ([place], [place], [place], [place], [place]) Address [address] [place] [address] Care Team Providers Care Photographic Laboratory Technician Name Role Phone Unavailable Primary Care [...]
[2025-05-10 20:23] LABS: Microscopic, Urine URINE MICROSCOPIC (MICROSCOPIC)
[2025-05-10 20:24] LABS: Bilirubin,Urine Negative (Negative); Color,Urine YELLOW (Yellow); Glucose,Urine (UA) Negative (Negative); Ketones,Urine Negative (Negative); Leukocyte Esterase,Urine Negative (Negative); PH,Urine 6.0 (5.0-8.5); Protein,Urine Negative (Negative); Specific Gravity, Urine 1.020 (1.005-1.030); Urobilinogen,Urine 0.2 EU/dl (0.2)
--- NOTE | 2025-05-10 20:28 | CT_ITS ---
PROCEDURE INFORMATION: Exam: CT Abdomen And Pelvis With Contrast Exam date and time: 05/10/2025 9:02 PM Age: 49 years old Clinical indication: Abdominal pain TECHNIQUE: Imaging protocol: Computed tomography of the abdomen and pelvis with contrast. Radiation optimization: All CT scans at this facility use at least one of these dose optimization techniques: automated exposure control; mA and/or kV adjustment per patient size (includes targeted exams where dose is matched to clinical indication); or iterative reconstruction. Contrast material: ISOVUE; Contrast volume: 75 ml; Contrast route: IV; COMPARISON: 1. CT ABDOMEN PELVIS W CON 05/01/2025 2:[address] ABDOMEN PELVIS WO CON 03/16/2021 6:[address] ABDOMEN PELVIS W CON 11/19/2024 11:54 PM FINDINGS: Lungs: Lung bases are clear. Liver: Subcentimeter low-density lesion in the superior right lobe of liver on image 22 of series 3 and the inferior right lobe of liver on image 40 and the more inferior posterior right lobe of liver on image 44 which are unchanged from contrast CT of 05/01/2025 and 11/19/2024. Gallbladder and biliary ducts: Normal. No calcified stones. No ductal dilation. Pancreas: Normal. No ductal dilation. Spleen: Normal. No splenomegaly. Adrenal glands: Normal. No mass. 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 Nonobstructing left kidney stone again noted. Mild hydronephrosis to the UPJ level on the left which is unchanged from the prior CTs dating back to 03/16/2021 . Stomach and bowel: Unremarkable. No obstruction. No mucosal thickening. Appendix: No evidence of appendicitis. Intraperitoneal space: Unremarkable. No free air. No significant fluid collection. Vasculature: Unremarkable. No abdominal aortic aneurysm. Lymph nodes: Unremarkable. No enlarged lymph nodes. Urinary bladder: Unremarkable as visualized. Reproductive: Hysterectomy. Fluid-filled tubular structure in the right adnexa suggesting hydrosalpinx stable dating back to 11/19/2024. Bones/joints: Unremarkable. No acute fracture. Soft tissues: Unremarkable. IMPRESSION: 1. No acute abnormalities of the abdomen and pelvis. Nonemergent findings as above. 2. Chronic hydronephrosis of the left side of the horseshoe kidney redemonstrated. Bilateral renal scarring again noted. 3. Hydrosalpinx on the right redemonstrated.
--- NOTE | 2025-05-10 20:29 | PC.NURSE ---
Pt placed on purewick after complaints of frequent urination needs
--- NOTE | 2025-05-10 20:32 | HMH.EDGENADL ---
Discharge Plan Disposition Patient Disposition: Admitted Clinical Impressions Clinical Impression: Abdominal pain, Seizure-like activity, Acute hyponatremia Discharge ED Provider: Ilan Nguyen General Adult HPI <Breanne Orantes (ED), MEDICAL OFFICE ASSISTANT INSTRUCTOR - Last Filed: 05/10/25 21:37> General Chief complaint: Urogenital-Female Stated complaint: abdominal pain Time Seen by Provider: 05/10/25 20:20 Mode of Arrival: Ambulatory Source of Information: Patient Description of Symptoms (Recalled from ER Triage Doc. by RN): patient presents for urinary frequency and urgency. she has seen her TARGETEER recently, she is unable to tell staff when the appt was, but Dr Martinez is supposed to be scheduling a right salpingectomy with a diagnostic lap. her sympotoms have worsened so she presents back to the ED. History of Present Illness HPI narrative: 49-year-old female presents to the ED today for complaint of urinary urgency and frequency. She has abdominal pain that is diffuse. She also has some lower pelvic pain as well. She states that she has tried to talk to Dr. White about scheduling a right salpingectomy but the diagnostic lap but when she called today they did not call her back with the a day for the surgery. She presents today to the ED because symptoms have worsened. She denies fevers or chills. But she does have incontinence and abdominal pain. She was told to stop taking the bladder pill but take the antibiotics. Related Data Home Medications ?Medication ?Instructions ?Recorded ?Confirmed rizatriptan 10 mg disintegrating 10 mg PO DAILY 03/30/25 05/11/25 tablet ([facility]IST) desvenlafaxine succinate 50 mg 75 mg PO DAILY 05/11/25 05/11/25 tablet,extended release 24 hr Previous Rx's ?Medication ?Instructions ?Recorded albuterol sulfate 90 mcg/actuation 2 inh inhalation Q6H PRN shortness 08/29/23 breath activated powder inhaler of breath or wheezing #1 ea budesonide-formoterol HFA 160 1 inh inhalation BID #10.2 grams 11/21/23 mcg-4.5 mcg/actuation aerosol inhaler ipratropium 0.5 mg-albuterol 3 mg 3 ml inhalation Q6H PRN wheezing 11/21/23 (2.5 mg base)/3 mL nebulization #180 mL soln diclofenac sodium 1 % topical gel 4 g topical QID #100 grams 04/29/24 (Voltaren Arthritis Pain) lidocaine 4 % topical patch 1 patch topical DAILY PRN pain #30 04/29/24 (Aspercreme (lidocaine)) ea cholecalciferol (vitamin D3) 50 50 mcg PO DAILY #90 caps 06/11/24 mcg (2,000 unit) capsule cyanocobalamin (vitamin B-12) 1,000 mcg PO DAILY #90 tabs 06/11/24 1,000 mcg tablet naloxone 4 mg/actuation nasal 1 spray intranasal Q3M PRN opioid 10/01/24 spray (Narcan) overdose #2 ea divalproex 250 mg tablet,delayed 500 mg (2 x 250 mg) PO HS #60 tabs 10/27/24 release quetiapine 100 mg tablet 50 mg (1/2 x 100 mg) PO HS PRN as 03/28/25 needed #30 tabs diazepam 5 mg tablet 5 mg PO HS PRN anxiety #30 tabs 04/27/25 cephalexin 500 mg capsule 500 mg PO Q12H 10 days #20 caps 05/01/25 polyethylene glycol 3350 17 17 g PO DAILY 10 days #170 grams 05/01/25 gram/dose oral powder (Miralax) Allergies Allergy/AdvReac Type Severity Reaction Status Date / Time nitrous oxide Allergy Severe Unknown Verified 05/09/25 15:55 allergy reaction prednisone Allergy Mild shortness Verified 05/09/25 15:55 of breath codeine (CODEINE) Allergy Unknown Unknown Verified 05/09/25 15:55 allergy reaction fluoxetine (From PROZAC) Allergy Unknown Unknown Verified 05/09/25 15:55 allergy reaction ibuprofen (IBUPROFEN) Allergy Unknown Unknown Verified 05/09/25 15:55 allergy reaction latex (LATEX) Allergy Unknown Unknown Verified 05/09/25 15:55 allergy reaction loratadine (From CLARITIN) Allergy Unknown Unknown Verified 05/09/25 15:55 allergy reaction magnesium (MAGNESIUM) Allergy Unknown Unknown Verified 05/09/25 15:55 allergy reaction nitrofurantoin Allergy Unknown Unknown Verified 05/09/25 15:55 (NITROFURANTOIN) allergy reaction oxycodone (OXYCODONE) Allergy Unknown Unknown Verified 05/09/25 15:55 allergy reaction risperidone Allergy Unknown Unknown Verified 05/09/25 15:55 allergy reaction sumatriptan (SUMATRIPTAN) Allergy Unknown Unknown Verified 05/09/25 15:55 allergy reaction tramadol (TRAMADOL) Allergy Unknown Unknown Verified 05/09/25 15:55 allergy reaction trazodone (TRAZODONE) Allergy Unknown Altered Verified 05/09/25 15:55 Sense of Taste duloxetine Allergy Unknown Verified 05/09/25 15:55 allergy reaction metronidazole (From Flagyl) Allergy Hallucinati Verified 05/09/25 15:55 ons [facility] <Breanne Orantes (ED), MEDICAL OFFICE ASSISTANT INSTRUCTOR - Last Filed: 05/10/25 21:37> PFS Disclaimer: The information contained in this section may have been updated after the patient was seen, as this information can be updated by other users. Medical History Skin lesions Lumbar radiculopathy Benzodiazepine withdrawal Urinary tract infection symptoms Nerve pain Cervical radicular pain Sciatica Nightmares associated with chronic post-traumatic stress disorder Left leg pain Spell of altered consciousness Fall Urinary symptom or sign Dizziness Dizziness Hypokalemia Anxiety Skin lesions, generalized Abnormal electrocardiogram [ECG] [EKG] Dyspnea Depression Strep pharyngitis Complete miscarriage Acute pain of left knee Arm pain, left Swelling of labia Allergic reaction caused by a drug UTI (urinary tract infection) No significant past medical history Rash and nonspecific skin eruption Generalized seizure COVID-19 Vomiting Headache Gastroenteritis Pharyngitis Exposure to COVID-19 virus Viral syndrome Chronic lumbar pain COPD exacerbation Strain of lumbar region Concussion Fall Seizure Medication reaction Lower extremity pain Functional abdominal pain syndrome Neck Pain Elbow pain Anxiety Cervical strain Acute bronchitis Bronchitis Surgical History History of kidney surgery History of D&C H/O: History of appendectomy History of partial hysterectomy H/O cervical spine surgery Family History Other Cancer Diabetes Heart attack Hypertension Stroke Social History Smoking Status: Former smoker tobacco type: cigarettes packs per day: 1 smoking status stop date: 2015 alcohol intake: never substance use type: denies use current occupational status: unemployed and other Travel in the last 8 weeks?: None household members: none housing: other Have you lived/traveled outside [place] in past 30 days?: No Contact w/someone who lives/traveled outside US past 30 days?: No Exposure to someone with infectious disease in past 14 days?: No Do you have a fever (greater than 100.4 F or 38 C)?: No Have you tested positive for COVID-19?: No Exposed to someone with COVID-19 in past 14 days?: No Do you have a sore throat?: No Do you have a cough?: No Do you have any weakness?: No Are you experiencing any nausea/vomitting?: No Do you have any diarrhea?: No Are you experiencing any unusual bleeding?: No Do you have any muscle aches/pain?: No Do you have any abdominal pain?: No Are you experiencing loss of taste or smell?: No Other Medical History Have you received the Flu Vaccine for this season: No Have you received the Pneumonia Vaccine: No <Braenne Orantes (ED), MEDICAL OFFICE ASSISTANT INSTRUCTOR - Last Filed: 05/10/25 21:37> ROS Obtained: Yes Systems reviewed as appropriate & no additional complaints except as documented Constitutional Constitutional: Reports as per HPI Physical Exam <Breanne Orantes (ED), MEDICAL OFFICE ASSISTANT INSTRUCTOR - Last Filed: 05/10/25 21:37> General General appearance: alert Head Head exam: atraumatic and normocephalic Eye Eye exam: Present PERRL and EOMI ENT ENT exam: Present normal oropharynx and mucous membranes moist Neck Neck exam: Present full ROM and trachea midline Respiratory Respiratory exam: Present normal lung sounds bilaterally Cardiovascular Cardiovascular exam: Present regular rate, normal rhythm, normal heart sounds, +S1 and +S2 Abdominal Exam Abdominal exam: Present soft and normal bowel sounds Extremities Exam Extremities exam: Present full ROM and normal capillary refill Neurological Exam Neurological exam: Present alert and oriented X3 Skin Skin exam: Present warm and dry Medical Decision Making <Breanne Orantes (ED), MEDICAL OFFICE ASSISTANT INSTRUCTOR - Last Filed: 05/10/25 21:37> Medical Records Screening: Per USPSTF and CDC recommendations, given the prevalence of disease in our region, it is our hospital?s policy to screen for HIV and viral Hepatitis for all patients aged 18 and over and those with ongoing risk factors. Darrius Inquiry Pt receiving controlled substance: No Darrius was queried for this patient: No Vital Signs: 05/10/25 19:54 05/10/25 21:30 05/10/25 22:00 Temperature 98.4 F Temperature Source Oral Pulse Rate 74 79 Pulse Rate [Right Radial] 98 H Respiratory Rate 18 20 19 Blood Pressure 145/83 H 181/107 H Blood Pressure [Right Arm] 137/83 Blood Pressure Mean 103 114 Blood Pressure Mean [Right Arm] 101 Blood Pressure Source Blood Pressure Source [Right Arm] Automatic Cuff Blood Pressure Position Blood Pressure Position [Right Arm] Sitting 02 Sat by Pulse Oximetry 101 H 99 99 Oxygen Delivery Method Room Air 05/10/25 22:15 05/10/25 22:30 05/10/25 22:30 Temperature Temperature Source Pulse Rate 77 Pulse Rate [Right Radial] Respiratory Rate 11 L 10 L Blood Pressure 155/110 H Blood Pressure [Right Arm] Blood Pressure Mean 125 Blood Pressure Mean [Right Arm] Blood Pressure Source Blood Pressure Source [Right Arm] Blood Pressure Position Blood Pressure Position [Right Arm] 02 Sat by Pulse Oximetry 99 Oxygen Delivery Method 05/10/25 23:16 05/11/25 00:18 Temperature 98.4 F Temperature Source Oral Pulse Rate 92 H Pulse Rate [Right Radial] Respiratory Rate 20 Blood Pressure 145/75 H Blood Pressure [Right Arm] Blood Pressure Mean Blood Pressure Mean [Right Arm] Blood Pressure Source Automatic Cuff Blood Pressure Source [Right Arm] Blood Pressure Position Supine Blood Pressure Position [Right Arm] 02 Sat by Pulse Oximetry Oxygen Delivery Method Room Air Room Air Lab Data Lab Results 05/10/25 20:01: Urine Color Yellow, Urine Appearance Clear, Urine pH 6.0, Ur Specific Campbell 1.020, Urine Protein Negative, Urine Glucose (UA) Negative, Urine Ketones Negative, Urine Blood Negative, Urine Nitrate Negative, Urine Bilirubin Negative, Urine Urobilinogen 0.2, Ur Leukocyte Esterase Negative, Urine RBC Occasional, Urine WBC 3-5, Ur Squamous Epith Cells Occasional, Urine Bacteria 4+, Urine Opiates Screen Negative, Urine Methadone Screen Negative, Ur Barbituates Screen Negative, Ur Phencyclidine Scrn Negative, Ur Amphetamines Screen Negative, U Benzodiazepines Scrn Positive H, Urine Cocaine Screen Negative, U Marijuana (THC) Screen Negative 05/10/25 20:20: WBC 7.5, RBC 4.39, Hgb 14.0, Hct 40.4, MCV 92.0, MCH 31.9 H, MCHC 34.7, RDW 12.2, Plt Count 277, MPV 11.1 H, Neut % (Auto) 53.3, Lymph % (Auto) 38.1, Fulton % (Auto) 5.5, Eos % (Auto) 2.1, Baso % (Auto) 0.5, Neut # (Auto) 4.0, Lymph # (Auto) 2.8, [place] # (Auto) 0.4, Eos # (Auto) 0.2, Baso # (Auto) 0.0, PT 10.3, INR 0.92, Sodium 132 L, Potassium 3.7, Chloride 100, Carbon Dioxide 26, Anion Gap 9.7, BUN 14, Creatinine 0.80, Estimated Creat Clear 90, Estimated GFR 76, Est GFR ( Amer) 92, Glucose 143 H, Calcium 8.9, Magnesium 1.7, Total Bilirubin 0.4, AST 30, ALT 29, Alkaline Phosphatase 81, Total Protein 7.7, Albumin 4.2, Globulin 3.5 H, Albumin/Globulin Ratio 1.2, Lipase 82 05/10/25 20:20 05/10/25 20:20 Orders (Tests/Meds): ED MEDICATIONS Generic Name Dose Route Start Last Admin Trade Name Freq PRN Reason Stop Dose Admin Diazepam 2 mg 05/11/25 01:06 Diazepam 10mg/2ml Syringe IV 06/10/25 01:05 NEEDED PRN Seizures Morphine Sulfate 2 mg 05/11/25 01:06 Morphine 2mg/Ml Syringe IV 06/10/25 01:05 Q4HP PRN Moderate to Severe Pain (4-10) Ondansetron HCl 4 mg 05/10/25 23:46 Ondansetron 4mg/2ml Vial IV 06/09/25 23:45 Q8HP PRN Nausea Sodium Chloride 10 ml 05/10/25 21:04 05/10/25 21:05 Sodium Chloride 0.9% 10ml Syr (Rad Only) IV 06/09/25 21:03 10 ml NEEDED PRN Administration Maintain IV Site Discontinued Medications Generic Name Dose Route Start Last Admin Trade Name Freq PRN Reason Stop Dose Admin Divalproex Sodium 500 mg 05/10/25 21:18 05/10/25 21:39 Divalproex 250mg (Delayed-Release) Tablet PO 05/10/25 21:19 500 mg ONCE ONE Administration Hydralazine HCl 5 mg 05/10/25 23:01 05/11/25 00:30 Hydralazine 20mg/Ml Vial IV 05/10/25 23:02 Not Given ONCE ONE Sodium Chloride 1,000 mls @ 999 mls/hr 05/10/25 20:29 05/10/25 22:13 Sod Chlor 0.9% 1000ml Bag IV 05/10/25 21:29 Infused .Q1H1M ONE Infusion Piperacillin Sod/Tazobactam 100 mls @ 200 mls/hr 05/10/25 20:35 05/10/25 22:13 Sod 4.5 gm/ Sodium Chloride IV 05/10/25 21:04 Infused ONCE ONE Infusion Iopamidol 75 ml 05/10/25 21:04 05/10/25 21:05 Iopamidol-370 (76%);100ml Bottle IV 05/10/25 21:05 75 ml ONCE ONE Administration Morphine Sulfate 4 mg 05/10/25 20:29 05/10/25 20:43 Morphine 4mg/Ml Syringe IV 05/10/25 20:30 4 mg ONCE ONE Administration Morphine Sulfate 2 mg 05/10/25 22:24 05/10/25 22:30 Morphine 2mg/Ml Syringe IV 05/10/25 22:25 2 mg ONCE ONE Administration Ondansetron HCl 4 mg 05/10/25 20:29 05/10/25 20:44 Ondansetron 4mg/2ml Vial IV 05/10/25 20:30 4 mg ONCE ONE Administration ORDERS Category Date Time Status CT abdomen pelvis w con Stat Cat Scan 05/10/25 20:28 Completed CBC [Complete Blood Count Auto Diff] Stat Lab 05/10/25 20:20 Completed Comprehensive Metabolic Panel Stat Lab 05/10/25 20:20 Completed Lipase Stat Lab 05/10/25 20:20 Completed Magnesium Stat Lab 05/10/25 20:20 Completed PT INR [Prothrombin Time INR] Stat Lab 05/10/25 20:20 Completed UA [Urinalysis and Microscopic] Stat Lab 05/10/25 20:01 Completed UDS [Drug Screen,Urine] Stat Lab 05/10/25 20:01 Completed Urine Culture Stat Micro 05/10/25 20:01 Received Medical Decision Narrative: patient is a 49-year-old female presents to the ED today for evaluation of abdominal pain, incontinence and increased pain. Patient is hemodynamically stable and nontoxic-appearing upon arrival, afebrile. Differential diagnosis includes urinary tract infection, abdominal pain, pelvic pain, among others. Workup will be conducted with hematologic labs, specific imaging, provocative tests. Initial inventions include crystalloid bolus, analgesics, antibiotics. We were called at 0 for her patient having a seizure and radiology. Dr. Nguyen and I got there and patient was on her side and she was fluttering her eyes but alert. She told us that she takes Depakote at 930 every night. She has not had her dose today. We wheeled the patient back to her room and she is alert and oriented. Will give patient her Depakote here in the ED. She asked for her other normal meds as well. We did place seizure pads just in case. Ronald from ultrasound was going to do an ultrasound of her pelvis but Dr. Nguyen and I decided to hold on a ultrasound since patient just had a seizure in radiology we did not want Ronald to be up in radiology with patient alone and her have another seizure. Patient can get outpatient ultrasound if needed. <Ilan Nguyen MD - Last Filed: 05/11/25 01:54> Vital Signs: 05/10/25 19:54 05/10/25 21:30 05/10/25 22:00 Temperature 98.4 F Temperature Source Oral Pulse Rate 74 79 Pulse Rate [Right Radial] 98 H Respiratory Rate 18 20 19 Blood Pressure 145/83 H 181/107 H Blood Pressure [Right Arm] 137/83 Blood Pressure Mean 103 114 Blood Pressure Mean [Right Arm] 101 Blood Pressure Source Blood Pressure Source [Right Arm] Automatic Cuff Blood Pressure Position Blood Pressure Position [Right Arm] Sitting 02 Sat by Pulse Oximetry 101 H 99 99 Oxygen Delivery Method Room Air 05/10/25 22:15 05/10/25 22:30 05/10/25 22:30 Temperature Temperature Source Pulse Rate 77 Pulse Rate [Right Radial] Respiratory Rate 11 L 10 L Blood Pressure 155/110 H Blood Pressure [Right Arm] Blood Pressure Mean 125 Blood Pressure Mean [Right Arm] Blood Pressure Source Blood Pressure Source [Right Arm] Blood Pressure Position Blood Pressure Position [Right Arm] 02 Sat by Pulse Oximetry 99 Oxygen Delivery Method 05/10/25 23:16 05/11/25 00:18 Temperature 98.4 F Temperature Source Oral Pulse Rate 92 H Pulse Rate [Right Radial] Respiratory Rate 20 Blood Pressure 145/75 H Blood Pressure [Right Arm] Blood Pressure Mean Blood Pressure Mean [Right Arm] Blood Pressure Source Automatic Cuff Blood Pressure Source [Right Arm] Blood Pressure Position Supine Blood Pressure Position [Right Arm] 02 Sat by Pulse Oximetry Oxygen Delivery Method Room Air Room Air Lab Data Lab Results 05/10/25 20:01: Urine Color Yellow, Urine Appearance Clear, Urine pH 6.0, Ur Specific Campbell 1.020, Urine Protein Negative, Urine Glucose (UA) Negative, Urine Ketones Negative, Urine Blood Negative, Urine Nitrate Negative, Urine Bilirubin Negative, Urine Urobilinogen 0.2, Ur Leukocyte Esterase Negative, Urine RBC Occasional, Urine WBC 3-5, Ur Squamous Epith Cells Occasional, Urine Bacteria 4+, Urine Opiates Screen Negative, Urine Methadone Screen Negative, Ur Barbituates Screen Negative, Ur Phencyclidine Scrn Negative, Ur Amphetamines Screen Negative, U Benzodiazepines Scrn Positive H, Urine Cocaine Screen Negative, U Marijuana (THC) Screen Negative 05/10/25 20:20: WBC 7.5, RBC 4.39, Hgb 14.0, Hct 40.4, MCV 92.0, MCH 31.9 H, MCHC 34.7, RDW 12.2, Plt Count 277, MPV 11.1 H, Neut % (Auto) 53.3, Lymph % (Auto) 38.1, [place] % (Auto) 5.5, Eos % (Auto) 2.1, Baso % (Auto) 0.5, Neut # (Auto) 4.0, Lymph # (Auto) 2.8, [place] # (Auto) 0.4, Eos # (Auto) 0.2, Baso # (Auto) 0.0, PT 10.3, INR 0.92, Sodium 132 L, Potassium 3.7, Chloride 100, Carbon Dioxide 26, Anion Gap 9.7, BUN 14, Creatinine 0.80, Estimated Creat Clear 90, Estimated GFR 76, Est GFR ( Amer) 92, Glucose 143 H, Calcium 8.9, Magnesium 1.7, Total Bilirubin 0.4, AST 30, ALT 29, Alkaline Phosphatase 81, Total Protein 7.7, Albumin 4.2, Globulin 3.5 H, Albumin/Globulin Ratio 1.2, Lipase 82 Orders (Tests/Meds): ED MEDICATIONS Generic Name Dose Route Start Last Admin Trade Name Freq PRN Reason Stop Dose Admin Diazepam 2 mg 05/11/25 01:06 Diazepam 10mg/2ml Syringe IV 06/10/25 01:05 NEEDED PRN Seizures Morphine Sulfate 2 mg 05/11/25 01:06 Morphine 2mg/Ml Syringe IV 06/10/25 01:05 Q4HP PRN Moderate to Severe Pain (4-10) Ondansetron HCl 4 mg 05/10/25 23:46 Ondansetron 4mg/2ml Vial IV 06/09/25 23:45 Q8HP PRN Nausea Sodium Chloride 10 ml 05/10/25 21:04 05/10/25 21:05 Sodium Chloride 0.9% 10ml Syr (Rad Only) IV 06/09/25 21:03 10 ml NEEDED PRN Administration Maintain IV Site Discontinued Medications Generic Name Dose Route Start Last Admin Trade Name Freq PRN Reason Stop Dose Admin Divalproex Sodium 500 mg 05/10/25 21:18 05/10/25 21:39 Divalproex 250mg (Delayed-Release) Tablet PO 05/10/25 21:19 500 mg ONCE ONE Administration Hydralazine HCl 5 mg 05/10/25 23:01 05/11/25 00:30 Hydralazine 20mg/Ml Vial IV 05/10/25 23:02 Not Given ONCE ONE Sodium Chloride 1,000 mls @ 999 mls/hr 05/10/25 20:29 05/10/25 22:13 Sod Chlor 0.9% 1000ml Bag IV 05/10/25 21:29 Infused .Q1H1M ONE Infusion Piperacillin Sod/Tazobactam 100 mls @ 200 mls/hr 05/10/25 20:35 05/10/25 22:13 Sod 4.5 gm/ Sodium Chloride IV 05/10/25 21:04 Infused ONCE ONE Infusion Iopamidol 75 ml 05/10/25 21:04 05/10/25 21:05 Iopamidol-370 (76%);100ml Bottle IV 05/10/25 21:05 75 ml ONCE ONE Administration Morphine Sulfate 4 mg 05/10/25 20:29 05/10/25 20:43 Morphine 4mg/Ml Syringe IV 05/10/25 20:30 4 mg ONCE ONE Administration Morphine Sulfate 2 mg 05/10/25 22:24 05/10/25 22:30 Morphine 2mg/Ml Syringe IV 05/10/25 22:25 2 mg ONCE ONE Administration Ondansetron HCl 4 mg 05/10/25 20:29 05/10/25 20:44 Ondansetron 4mg/2ml Vial IV 05/10/25 20:30 4 mg ONCE ONE Administration ORDERS Category Date Time Status CT abdomen pelvis w con Stat Cat Scan 05/10/25 20:28 Completed CBC [Complete Blood Count Auto Diff] Stat Lab 05/10/25 20:20 Completed Comprehensive Metabolic Panel Stat Lab 05/10/25 20:20 Completed Lipase Stat Lab 05/10/25 20:20 Completed Magnesium Stat Lab 05/10/25 20:20 Completed PT INR [Prothrombin Time INR] Stat Lab 05/10/25 20:20 Completed UA [Urinalysis and Microscopic] Stat Lab 05/10/25 20:01 Completed UDS [Drug Screen,Urine] Stat Lab 05/10/25 20:01 Completed Urine Culture Stat Micro 05/10/25 20:01 Received Medical Decision Narrative: patient is a 49-year-old female presents to the ED today for evaluation of abdominal pain, incontinence and increased pain. Patient is hemodynamically stable and nontoxic-appearing upon arrival, afebrile. Differential diagnosis includes urinary tract infection, abdominal pain, pelvic pain, among others. Workup will be conducted with hematologic labs, specific imaging, provocative tests. Initial inventions include crystalloid bolus, analgesics, antibiotics. We were called at 2109 for her patient having a seizure and radiology. Dr. Nguyen and I got there and patient was on her side and she was fluttering her eyes but alert. She told us that she takes Depakote at 930 every night. She has not had her dose today. We wheeled the patient back to her room and she is alert and oriented. Will give patient her Depakote here in the ED. She asked for her other normal meds as well. We did place seizure pads just in case. Ronald from ultrasound was going to do an ultrasound of her pelvis but Dr. Nguyen and I decided to hold on a ultrasound since patient just had a seizure in radiology we did not want Ronald to be up in radiology with patient alone and her have another seizure. Patient can get outpatient ultrasound if needed. Ilan Nguyen MD: I was consulted by the VELMA, and we discussed the complexity of the problems being addressed. I approve the treatment and management plan for this patient's care in the emergency department, thus performing a substantive portion of the medical decision making. The patient CT imaging was interpreted by me personally. No acute findings. She has a stable right hydrosalpinx but no evidence of rupture or intra-abdominal free fluid. 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 See radiology report for details. Patient's workup shows mild hyponatremia with a sodium 132 but otherwise unremarkable nonactionable. UDS was added and was positive for benzos, however she takes diazepam at home. On reassessment, patient is alert and answering questions. She states that her pain is still severe. She notes that she lives at home and has a service dog. She is unable to quantify how many seizures she has had recently. Given her continued abdominal pain in the setting of seizure-like activity, I do feel that it is in her best interest to be admitted to the hospital for continued pain management. I did discuss patient's case with Dr. Garcia with the [facility] [facility] service as patient is stating that she tried calling the office today to schedule an appointment to have her hydrosalpinx surgically removed, however she did not receive a callback. She was told that it needs to get out as soon as possible . Dr. Garcia stated that patient can be admitted overnight and they will evaluate her in the morning for plan moving forward. I then discussed patient's case with the hospital medicine service who agreed to admit the patient for further management. Critical Care <Breanne Orantes (ED), MEDICAL OFFICE ASSISTANT INSTRUCTOR - Last Filed: 05/10/25 21:37> Critical Care Time Critical Care Time: No
[2025-05-10 20:41] LABS: Hematocrit 40.4 % (37.0-47.0); Hemoglobin 14.0 g/dL (12.2-16.2); Immature Granulocytes % 0.5 %; Mean Corpuscular HGB Conc 34.7 g/dL (31.8-35.4); Mean Corpuscular Hemoglobin 31.9 pg (27.0-31.2); Mean Corpuscular Volume 92.0 fl (81-99); Nucleated Red Blood Cells % 0 %; Platelet Count 277 K/mm3 (142-424); Red Blood Count 4.39 M/mm3 (4.20-5.40); Red Cell Distribution Width-SD 40.7 fL; White Blood Count 7.5 K/mm3 (4.8-10.8)
[2025-05-10] MEDS: 0.9 % SODIUM CHLORIDE 1000ML 1,000 ML 999 ML IV (20:41)
[2025-05-10 20:43] LABS: Bacteria,Urine 4+ /lpf; RBC,Urine Occasional #/hpf (0-3); Squamous Epithelial Cell,Urine Occasional #/hpf (0-5)
[2025-05-10] MEDS: MORPHINE 4MG/ML SYRINGE 4 MG IV (20:43)
[2025-05-10] MEDS: ONDANSETRON 4MG/2ML VIAL 4 MG IV (20:44)
[2025-05-10 20:45] LABS: Alanine Aminotransferase 29 U/L (12-78); Albumin Level 4.2 g/dl (3.5-5.0); Albumin/Globulin Ratio 1.2 (1.1-1.8); Alkaline Phosphatase 81 U/L (38-126); Anion Gap 9.7 mEq/L (5-15); Aspartate Amino Transferase 30 U/L (14-36); Bilirubin,Total 0.4 mg/dl (0.2-1.3); Blood Urea Nitrogen 14 mg/dl (7-17); Calcium 8.9 mg/dl (8.4-10.2); Carbon Dioxide 26 mmol/L (22.0-30.0); Chloride 100 mmol/L (98-107); Creatinine Clearance Estimated 90 mL/min (50-200); Creatinine,Serum 0.80 mg/dl (0.52-1.04); Estimated Glomerular Filt Rate 76 ml/min (>60); GFR (African American) 92 ML/MIN (>60); Globulin 3.5 g/dL (1.3-3.2); Glucose 143 mg/dl (74-100); Lipase 82 U/L (23-300); Magnesium 1.7 mg/dl (1.6-2.3); Potassium 3.7 mmoL/L (3.5-5.1); Sodium 132 mmol/L (136-145); Total Protein,Serum 7.7 g/dl (6.3-8.2)
[2025-05-10 20:47] LABS: INR 0.92 (0.9-1.1); Prothrombin Time 10.3 seconds (10.1-12.5)
[2025-05-10] MEDS: PIPERACILLIN/TAZO 4.5 GM in 0.9 % SODIUM CHLORIDE 100 ML IV (20:47)
[2025-05-10] MEDS: SODIUM CHLORIDE 0.9% 10ML SYR (RAD ONLY) 10 ML IV (21:05)
[2025-05-10] MEDS: IOPAMIDOL-370 (76%);100ML BOTTLE 75 ML IV (21:05)
--- NOTE | 2025-05-10 21:17 | PC.NURSE ---
Pt back from CT scan
[2025-05-10 21:30] VITALS: BP 145/83; PULSE 74; RESP 20; O2SAT 99
[2025-05-10] MEDS: DIVALPROEX 250MG (Delayed-Release) TABLET 500 MG PO (21:39)
[2025-05-10 22:00] VITALS: BP 181/107; PULSE 79; RESP 19; O2SAT 99
[2025-05-10 22:15] VITALS: PULSE 77; RESP 11; O2SAT 99
[2025-05-10 22:30] VITALS: BP 155/110; RESP 10
[2025-05-10] MEDS: MORPHINE 2MG/ML SYRINGE 2 MG IV (22:30)
--- NOTE | 2025-05-10 22:40 | PC.NURSE ---
Pt aware of plans for admission.
[2025-05-10 22:49] LABS: Barbiturates Screen,Urine Negative ng/ml (<200)
[2025-05-10 22:50] LABS: Amphetamine/Metha Screen,Urine Negative ng/ml (<1000); Benzodiazepines Screen,Urine Positive ng/ml (<200)
[2025-05-10 22:52] LABS: Methadone Screen,Urine Negative ng/ml (<300)
[2025-05-10 22:53] LABS: Opiate Screen,Urine Negative ng/ml (<300)
[2025-05-10 22:54] LABS: Phencyclidine Screen,Urine Negative ng/ml (<25)
--- NOTE | 2025-05-10 23:20 | PC.NURSE ---
Report called to [facility] Pt transported to inpatient unit via stretcher by [employer]
[2025-05-11] VITALS (7 sets, daily range): BP systolic 97–145; BP diastolic 43–85; PULSE 63–92; RESP 16–20; TEMP 36.5–36.9; O2SAT 92–99; BMI 26.1; BMI 26.0
--- NOTE | 2025-05-11 00:20 | PC.NURSE ---
Patient arrived to floor via wheelchair from ED at 00:10.
--- NOTE | 2025-05-11 01:13 | P.HP_ITS ---
<Statement entered by Miles Coulter MD - 05/11/25 13:27> Rounded on patient after nurse practitioner. Personally examined and interviewed patient. Agree with exam findings and care plan as documented. History of Present Illness *Admission Date: 05/10/25 *Reason for visit:: Intractable abdominal pain *History of present illness: 49-year-old female with a complex past medical history. Presents to ER with intractable abdominal pain. She describes the pain as right lower quadrant and in the suprapubic region. Also states she feels some pelvic pressure. She rates the pain a 10 out of 10. She has also developed some bladder incontinence today. Denies fever chills or bodyaches. Denies nausea vomiting or diarrhea. Has known hydrosalpinx. Was seen in the ER May 01 for abdominal pain as well. She is unable to tell me specifically if this is the same pain or if it is different. At that time she reported urinary urgency and frequency. She was given antibiotics for UTI. Urinalysis showed 2+ blood. Abdomen pelvis CT showed no acute findings, moderate to large amount of stool in the colon, stable hydrosalpinx status post hysterectomy and stable small hepatic hypodensities dating back to 2020. Transvaginal ultrasound was also done that showed no ovarian torsion and hydrosalpinx stable from CT in October 2024. She was given MiraLAX for her stool burden on CT and she states now she is having loose stools. Today CT reading does not show a stool burden and again a stable right hydrosalpinx. While in the ED she reportedly had a seizure. She does have history of this and is on Depakote. These have been described as nonepileptic. She was given a dose of her home Depakote in the ER. She states that her cafe lead said they need to remove the hydrosalpinx and that it needed to be done soon. [facility] Disclaimer: The information contained in this section may have been updated after the patient was seen, as this information can be updated by other users. Medical History Skin lesions Lumbar radiculopathy Benzodiazepine withdrawal Urinary tract infection symptoms Nerve pain Cervical radicular pain Sciatica Nightmares associated with chronic post-traumatic stress disorder Left leg pain Spell of altered consciousness Fall Urinary symptom or sign Dizziness Dizziness Hypokalemia Anxiety Skin lesions, generalized Abnormal electrocardiogram [ECG] [EKG] Dyspnea Depression Strep pharyngitis Complete miscarriage Acute pain of left knee Arm pain, left Swelling of labia Allergic reaction caused by a drug UTI (urinary tract infection) No significant past medical history Rash and nonspecific skin eruption Generalized seizure COVID-19 Vomiting Headache Gastroenteritis Pharyngitis Exposure to COVID-19 virus Viral syndrome Chronic lumbar pain COPD exacerbation Strain of lumbar region Concussion Fall Seizure Medication reaction Lower extremity pain Functional abdominal pain syndrome Neck Pain Elbow pain Anxiety Cervical strain Acute bronchitis Bronchitis Surgical History History of kidney surgery History of D&C H/O: History of appendectomy History of partial hysterectomy H/O cervical spine surgery Family History Other Cancer Diabetes Heart attack Hypertension Stroke Social History Smoking Status: Former smoker tobacco type: cigarettes packs per day: 1 smoking status stop date: 2015 alcohol intake: never substance use type: denies use current occupational status: unemployed and other Travel in the last 8 weeks?: None household members: none housing: other Have you lived/traveled outside [place] in past 30 days?: No Contact w/someone who lives/traveled outside US past 30 days?: No Exposure to someone with infectious disease in past 14 days?: No Do you have a fever (greater than 100.4 F or 38 C)?: No Have you tested positive for COVID-19?: No Exposed to someone with COVID-19 in past 14 days?: No Do you have a sore throat?: No Do you have a cough?: No Do you have any weakness?: No Are you experiencing any nausea/vomitting?: No Do you have any diarrhea?: No Are you experiencing any unusual bleeding?: No Do you have any muscle aches/pain?: No Do you have any abdominal pain?: No Are you experiencing loss of taste or smell?: No Other Medical History Have you received the Flu Vaccine for this season: No Have you received the Pneumonia Vaccine: No Review of Systems Constitutional Constitutional: Denies body ache(s), Denies chills and Denies fever(s) Eyes Eyes: Reports system reviewed and no additional complaints, except as documented ENT Ears, Nose, Mouth, and Throat: Reports system reviewed and no additional complaints, except as documented *Cardiovascular Cardiovascular: Denies chest pain and Denies dyspnea *Respiratory Respiratory: Denies dyspnea *Gastrointestinal Gastrointestinal: Reports abdominal pain, Reports diarrhea, Denies nausea and Denies vomiting *Genitourinary Genitourinary: Reports pelvic pain and Reports urinary incontinence *Musculoskeletal Musculoskeletal: Reports system reviewed and no additional complaints, except as documented *Neurologic Neurologic: Reports system reviewed and no additional complaints, except as documented Meds Home Medications and Allergies Home Medications ?Medication ?Instructions ?Recorded ?Confirmed ?Type albuterol sulfate 90 mcg/actuation 2 inh inhalation Q6 H PRN shortness 08/29/23 05/11/25 Rx breath activated powder inhaler of breath or wheezing #1 ea budesonide-formoterol HFA 160 1 inh inhalation BID #10 .2 grams 11/21/23 05/11/25 Rx mcg-4.5 mcg/actuation aerosol inhaler ipratropium 0.5 mg-albuterol 3 mg 3 ml inhalation Q6H PRN wheezing 11/21/23 05/11/25 Rx (2.5 mg base)/3 mL nebulization #180 mL soln diclofenac sodium 1 % topical gel 4 g topical QID #100 grams 04/29/24 05/11/25 Rx (Voltaren Arthritis Pain) lidocaine 4 % topical patch 1 patch topical DAILY PRN pain #30 04/29/24 05/11/25 Rx (Aspercreme (lidocaine)) ea cholecalciferol (vitamin D3) 50 50 mcg PO DAILY #90 ca ps 06/11/24 05/11/25 Rx mcg (2,000 unit) capsule cyanocobalamin (vitamin B-12) 1,000 mcg PO DAILY #90 t abs 06/11/24 05/11/25 Rx 1,000 mcg tablet naloxone 4 mg/actuation nasal 1 spray intranasal Q3M P RN opioid 10/01/24 05/11/25 Rx spray (Narcan) overdose #2 ea divalproex 250 mg tablet,delayed 500 mg (2 x 250 mg) P O HS #60 tabs 10/27/24 05/11/25 Rx release quetiapine 100 mg tablet 50 mg (1/2 x 100 mg) PO HS P RN as 09/29/25 11/12/25 Rx needed #30 tabs rizatriptan 10 mg disintegrating 10 mg PO DAILY 05/11/25 History tablet (Maxalt-[employer]) diazepam 5 mg tablet 5 mg PO HS PRN anxiety #30 t abs 04/27/25 05/11/25 Rx cephalexin 500 mg capsule 500 mg PO Q12H 10 days #20 c aps 05/01/25 05/11/25 Rx polyethylene glycol 3350 17 17 g PO DAILY 10 days #170 grams 05/01/25 05/11/25 Rx gram/dose oral powder (Miralax) desvenlafaxine succinate 50 mg 75 mg PO DAILY 05/11/25 05/11/25 History tablet,extended release 24 hr New Prescriptions to Start Prescriptions: Allergies Allergy/AdvReac Type Severity Reaction Status Date / Time nitrous oxide Allergy Severe Unknown Verified 05/09/25 15:55 allergy reaction prednisone Allergy Mild shortness Verified 05/09/25 15:55 of breath codeine (CODEINE) Allergy Unknown Unknown Verified 05/09/25 15:55 allergy reaction fluoxetine (From PROZAC) Allergy Unknown Unknown Verified 05/09/25 15:55 allergy reaction ibuprofen (IBUPROFEN) Allergy Unknown Unknown Verified 05/09/25 15:55 allergy reaction latex (LATEX) Allergy Unknown Unknown Verified 05/09/25 15:55 allergy reaction loratadine (From CLARITIN) Allergy Unknown Unknown Verified 05/09/25 15:55 allergy reaction magnesium (MAGNESIUM) Allergy Unknown Unknown Verified 05/09/25 15:55 allergy reaction nitrofurantoin Allergy Unknown Unknown Verified 05/09/25 15:55 (NITROFURANTOIN) allergy reaction oxycodone (OXYCODONE) Allergy Unknown Unknown Verified 05/09/25 15:55 allergy reaction risperidone Allergy Unknown Unknown Verified 05/09/25 15:55 allergy reaction sumatriptan (SUMATRIPTAN) Allergy Unknown Unknown Verified 05/09/25 15:55 allergy reaction tramadol (TRAMADOL) Allergy Unknown Unknown Verified 05/09/25 15:55 allergy reaction trazodone (TRAZODONE) Allergy Unknown Altered Verified 05/09/25 15:55 Sense of Taste duloxetine Allergy Unknown Verified 05/09/25 15:55 allergy reaction metronidazole (From Flagyl) Allergy Hallucinati Verified 05/09/25 15:55 ons Exam Data for Last 24 hours Vital signs and Labs for Last 24 Hours: Temp Pulse Resp BP Pulse Ox O2 Del Method 97.7 F 69 16 144/85 H 97 Room Air 05/11/25 00:33 05/11/25 00:33 05/11/25 00:33 05/11/25 00:33 05/11/25 00:33 05/11/25 00:50 Laboratory Results - last 24 hr 05/10/25 20:01: Urine Color Yellow, Urine Appearance Clear, Urine pH 6.0, Ur Specific [place] 1.020, Urine Protein Negative, Urine Glucose (UA) Negative, Urine Ketones Negative, Urine Blood Negative, Urine Nitrate Negative, Urine Bilirubin Negative, Urine Urobilinogen 0.2, Ur Leukocyte Esterase Negative, Urine RBC Occasional, Urine WBC 3-5, Ur Squamous Epith Cells Occasional, Urine Bacteria 4+, Urine Opiates Screen Negative, Urine Methadone Screen Negative, Ur Barbituates Screen Negative, Ur Phencyclidine Scrn Negative, Ur Amphetamines Screen Negative, U Benzodiazepines Scrn Positive H, Urine Cocaine Screen Negative, U Marijuana (THC) Screen Negative 05/10/25 20:20: WBC 7.5, RBC 4.39, Hgb 14.0, Hct 40.4, MCV 92.0, MCH 31.9 H, MCHC 34.7, RDW 12.2, Plt Count 277, MPV 11.1 H, Neut % (Auto) 53.3, Lymph % (Auto) 38.1, [place] % (Auto) 5.5, Eos % (Auto) 2.1, Baso % (Auto) 0.5, Neut # (Auto) 4.0, Lymph # (Auto) 2.8, [place] # (Auto) 0.4, Eos # (Auto) 0.2, Baso # (Auto) 0.0, PT 10.3, INR 0.92, Sodium 132 L, Potassium 3.7, Chloride 100, Carbon Dioxide 26, Anion Gap 9.7, BUN 14, Creatinine 0.80, Estimated Creat Clear 90, Estimated GFR 76, Est GFR ( Amer) 92, Glucose 143 H, Calcium 8.9, Magnesium 1.7, Total Bilirubin 0.4, AST 30, ALT 29, Alkaline Phosphatase 81, Total Protein 7.7, Albumin 4.2, Globulin 3.5 H, Albumin/Globulin Ratio 1.2, Lipase 82 I & O for Last 24 hours: Intake & Output 05/08/25 05/09/25 05/10/25 05/11/25 23:59 23:59 23:59 23:59 Intake Total 1100 / 1100 Output Total 0 / 0 Balance 1100 / 1100 0 / 0 Weight 68.039 kg 66.905 kg Constitutional Constitutional: no acute distress *Routine HEENT Exam Head: Present normocephalic and atraumatic Eye: Present PERRL ENT: Present mucous membranes moist *Routine Neck Exam Neck: Present supple *Routine Respiratory Exam Respiratory: Present CTA bilaterally *Routine Cardiovascular Exam Cardiovascular: Present RRR, Normal S1 and Normal S2 *Routine Abdominal Exam Abdominal: Present soft, tenderness (Tenderness to palpation of the lower abdomen especially in the right lower quadrant) and distended *Routine Rectal Exam Rectal:: deferred *Routine Genitalia Exam Genitalia:: deferred *Routine Extremities Exam Extremities: Absent edema *Routine Skin Exam Skin: Present intact, dry and warm *Routine Neurological Exam Neurological: Present alert, oriented X3 and moving all extremities Assessment and Plan *Assessment and plan (1) Abdominal pain: Status: Acute Qualifiers: Abdominal location: lower abdomen, unspecified Qualified Code(s): R10.30 - Lower abdominal pain, unspecified Category: Medical Code(s): R10.9 - Unspecified abdominal pain (2) Pelvic pain: Status: Acute Category: Medical Code(s): R10.20 - Pelvic and perineal pain unspecified side (3) Hydrosalpinx: Status: Acute Category: Medical Code(s): N70.11 - Chronic salpingitis (4) Anxiety disorder: Status: Acute Qualifiers: Anxiety disorder type: unspecified anxiety disorder Qualified Code(s): F41.9 - Anxiety disorder, unspecified Category: Medical Code(s): F41.9 - Anxiety disorder, unspecified (5) Hydronephrosis: Status: Acute Qualifiers: Hydronephrosis type: other Qualified Code(s): N13.39 - Other hydronephrosis Category: Medical Code(s): N13.30 - Unspecified hydronephrosis (6) Horseshoe kidney: Status: Acute Category: Medical Code(s): Q63.1 - Lobulated, fused and horseshoe kidney Plan Patient presents with intractable abdominal pain. Has known hydro salpinx and hydronephrosis. She states that she is supposed to have surgery to remove the hydrosalpinx. Recently treated for constipation and a UTI. Urinalysis today is normal and CT does not show stool burden. CT does show stable hydro salpinx as well as stable chronic hydronephrosis. Gynecology was consulted through the ER they agreed to see the patient in the morning. After discussing the case with the ER provider I agreed to admit this patient for pain control and to obtain gynecology consult. She does also have a history of nonepileptic seizures. Reportedly had a seizure in the ER and was given home dose of Depakote. Will check a Depakote level in the morning as well as repeat her CBC and CMP. She will have pain medicine and nausea medicine ordered as needed. Valium IV as needed for seizures. Will hold off on her other home meds until verified by pharmacy.
[2025-05-11] MEDS: MORPHINE 2MG/ML SYRINGE 2 MG IV ×3 (02:56→10:54)
--- NOTE | 2025-05-11 04:17 | PC.NURSE ---
Alert and oriented. Complained of pain one time, treated mar. Seizure precautions in place. No other complaints. Purewick in place due to patient incontinence and urge. Ambulates standby assist. Room air. Abdomen tender and distended. Call light in reach. Bed alarm on due to falls.
[2025-05-11 06:28] LABS: Hematocrit 39.9 % (37.0-47.0); Hemoglobin 13.5 g/dL (12.2-16.2); Immature Granulocytes % 0.3 %; Mean Corpuscular HGB Conc 33.8 g/dL (31.8-35.4); Mean Corpuscular Hemoglobin 31.8 pg (27.0-31.2); Mean Corpuscular Volume 93.9 fl (81-99); Nucleated Red Blood Cells % 0 %; Platelet Count 263 K/mm3 (142-424); Red Blood Count 4.25 M/mm3 (4.20-5.40); Red Cell Distribution Width-SD 42.7 fL; White Blood Count 7.2 K/mm3 (4.8-10.8)
[2025-05-11 06:46] LABS: Alanine Aminotransferase 19 U/L (12-78); Albumin Level 3.8 g/dl (3.5-5.0); Albumin/Globulin Ratio 1.3 (1.1-1.8); Alkaline Phosphatase 79 U/L (38-126); Anion Gap 7.8 mEq/L (5-15); Aspartate Amino Transferase 26 U/L (14-36); Bilirubin,Total 0.3 mg/dl (0.2-1.3); Blood Urea Nitrogen 12 mg/dl (7-17); Calcium 8.5 mg/dl (8.4-10.2); Carbon Dioxide 32 mmol/L (22.0-30.0); Chloride 101 mmol/L (98-107); Creatinine Clearance Estimated 89 mL/min (50-200); Creatinine,Serum 0.80 mg/dl (0.52-1.04); Estimated Glomerular Filt Rate 76 ml/min (>60); GFR (African American) 92 ML/MIN (>60); Globulin 3.0 g/dL (1.3-3.2); Glucose 85 mg/dl (74-100); Potassium 3.8 mmoL/L (3.5-5.1); Sodium 137 mmol/L (136-145); Total Protein,Serum 6.8 g/dl (6.3-8.2)
[2025-05-11] MEDS: VENLAFAXINE XR 75MG CAPSULE 75 MG PO (08:49)
--- NOTE | 2025-05-11 09:33 | HMH.PTEV ---
Physical Therapy Evaluation Rehab PT IP Evaluation Start: 05/11/25 00:29 Freq: ONCE Status: Active Protocol: Document 05/11/25 09:25 KIKI (Rec: 05/11/25 09:30 KIKI [id number]) Subjective/History History History Per H&P: 49-year-old female with a complex past medical history. Presents to ER with intractable abdominal pain. She describes the pain as right lower quadrant and in the suprapubic region. Also states she feels some pelvic pressure. She rates the pain a 10 out of 10. She has also developed some bladder incontinence today. Denies fever chills or bodyaches. Denies nausea vomiting or diarrhea. Has known hydrosalpinx. Was seen in the ER May 01 for abdominal pain as well. She is unable to tell me specifically if this is the same pain or if it is different. At that time she reported urinary urgency and frequency. She was given antibiotics for UTI. Urinalysis showed 2+ blood. Abdomen pelvis CT showed no acute findings, moderate to large amount of stool in the colon, stable hydrosalpinx status post hysterectomy and stable small hepatic hypodensities dating back to 2020. Transvaginal ultrasound was also done that showed no ovarian torsion and hydrosalpinx stable from CT in October 2024. She was given MiraLAX for her stool burden on CT and she states now she is having loose stools. Today CT reading does not show a stool burden and again a stable right hydrosalpinx. While in the ED she reportedly had a seizure. She does have history of this and is on Depakote. These have been described as nonepileptic. She was given a dose of her home Depakote in the ER. She states that her aquatics director said they need to remove the hydrosalpinx and that it needed to be done soon. Subjective Subjective Pt reports she lives with her service dog in a duplex. Pt lives on the ground level with 1 RITA. Pt normally IND with mobility without AD use. [facility] How much help from another person do you currently need... Turning from your None back to your side while in a flat bed without using bedrails? Moving from lying on None back to sitting on the side of a flat bed without using bedrails? Moving to and from a None bed to a chair ( including a wheelchair)? Standing up from a None chair using your arms? (e.g., wheelchair, bedside chair) Walking in hospital None room? Climbing 3-5 steps A little with a railing? Mobility Score [address] [facility] Mobility 7 Walk 25 feet or more Mobility Calculator Rehab PT IP Eval Objective Appearance Patient Behavior Appropriate,Cooperative Patient Orientation Person,Situation Difficulty following none instructions Speech Pattern Clear Ambulation Patient Able to Yes Ambulate Ambulation Observation IP General Gait Decrease Stride Lngth (R),Decrease Stride Lngth (L) Pattern Observation Ambulation Distance 25 (feet) Ambulation Assistive None Device Ambulation Ability Independent Balance Ability to Arise Able, uses arms to help Sitting Balance Steady, safe Standing Balance Steady, wide stance Dynamic Sitting Good Balance Ability Dynamic Standing Good Balance Ability Transfers Bed Transfer Ability Independent Sit to Stand Bed Independent Transfer Ability Rehab PT IP prob,goals,plan Problems Date of Evaluation: 05/11/25 Rehab Potential Rehab Potential Innapropriate for Skilled Therapy Discharge Plan PT Discharge Plan Pt presents at her baseline in mobility (IND) and is not appropriate for skilled acute care PT at this time. Eval Complexity Eval Charge Codes 03939 - Moderate Complexity PHYSICIAN CERTIFICATION: I certify the specified therapy services for Loren Raya are required, authorized, and reviewed every 30 days.
--- NOTE | 2025-05-11 10:15 | HMH.OTEV ---
OT Evaluation Rehab OT IP Evaluation Start: 05/11/25 00:29 Freq: ONCE Status: Active Protocol: Document 05/11/25 10:10 CALOS (Rec: 05/11/25 10:15 CALOS [id number]) Rehab OT IP Assessment Subjective History Per *History of present illness: 49-year-old female with a complex past medical history . Presents to ER with intractable abdominal pain. She describes the pain as right lower quadrant and in the suprapubic region. Also states she feels some pelvic pressure. She rates the pain a 10 out of 10. She has also developed some bladder incontinence today. Denies fever chills or bodyaches. Denies nausea vomiting or diarrhea. Has known hydrosalpinx. Was seen in the ER May 01 for abdominal pain as well. She is unable to tell me specifically if this is the same pain or if it is different. At that time she reported urinary urgency and frequency. She was given antibiotics for UTI. Urinalysis showed 2+ blood. Abdomen pelvis CT showed no acute findings, moderate to large amount of stool in the colon, stable hydrosalpinx status post hysterectomy and stable small hepatic hypodensities dating back to 2020. Transvaginal ultrasound was also done that showed no ovarian torsion and hydrosalpinx stable from CT in October 2024. She was given MiraLAX for her stool burden on CT and she states now she is having loose stools. Today CT reading does not show a stool burden and again a stable right hydrosalpinx. While in the ED she reportedly had a seizure. She does have history of this and is on Depakote. These have been described as nonepileptic. She was given a dose of her home Depakote in the ER. She states that her runway model said they need to remove the hydrosalpinx and that it needed to be done soon. Subjective I just hurt down there. Pt was supine in bed when therapy arrived. pt agreed to OT eval this AM. Pt orient x3. pt reported they live in [facility] on level with service dog. Pt reported they have one step up in back to enter home. pt reported they are Ind in ADLs/IADLs and they still drive. pt does not work and is on disability. pt reported they have grab bars in shower. Pt agreed to FM task. Pt went from supine to EOB Ind. Pt then completed STS with Ind . Pt then completed FM task of aprox 20 ft with Ind. Pt then sat on EOB and went to supine position Ind. Pt left supine in bed with call light and all other needs within reach. Objective Patient Orientation Person,Place,Situation Right Upper WFL Extremity Gross ROM Left Upper Extremity WFL Gross ROM Bed Mobility bed mobility-scooting,bed mobility - supine/sit Assist Level Independent Transfer Training Sit/Stand Transfer Assist Level Independent Chair Transfer Sit to/from Ambulatory Technique Chair Transfer None Assistive Devices Decrease in No Endurance Rehab OT IP prob,goals,plan Problems Date of Evaluation: 05/11/25 Rehab Potential Rehab Potential Innapropriate for Skilled Therapy Discharge Plan OT Discharge Plan At this time, pt is at baseline and would not benefit from skilled acute OT services while admitted at [facility]. Once medically stable, pt is able to DC home with no services warranted. Eval Complexity Eval Charge Codes 07818 - Moderate Complexity PHYSICIAN CERTIFICATION: I certify the specified therapy services for Loren Raya are required, authorized, and reviewed every 30 days.
[2025-05-11] MEDS: CEFTRIAXONE 1 GM 1 GM in 0.9 % SODIUM CHLORIDE 50 ML IV (11:46)
--- NOTE | 2025-05-11 12:44 | EXP.ACUTE.PN ---
Subjective *Date: 05/11/25 *Time: 17:03 Interval history: Still having pain today. After reviewing her chart, patient was adequately treated with cephalexin twice daily for her UTI from Proteus. Will continue ceftriaxone at this time. No nausea or vomiting. Advance diet as tolerated. OB evaluating patient today. Stable on room air. Medical Exam Vital signs and Labs for Last 24 Hours: Vital Signs Temp Pulse Pulse Resp BP BP Pulse Ox 05/11/25 11:45 98 F 65 16 113/72 98 05/11/25 11:00 05/11/25 08:29 05/11/25 08:00 05/11/25 07:56 97.9 F 63 16 122/72 98 05/11/25 06:38 05/11/25 05:00 05/11/25 04:00 97.7 F 64 16 126/79 99 05/11/25 03:00 05/11/25 00:50 05/11/25 00:33 97.7 F 69 16 144/85 H 97 05/11/25 00:18 98.4 F 92 H 20 145/75 H 05/10/25 23:16 05/10/25 22:30 155/110 H 05/10/25 22:30 10 L 05/10/25 22:15 77 11 L 99 05/10/25 22:00 79 19 181/107 H 99 05/10/25 21:30 74 20 145/83 H 99 05/10/25 19:54 98.4 F 98 H 18 137/83 101 H O2 Del Method 05/11/25 11:45 Room Air 05/11/25 11:00 Room Air 05/11/25 08:29 Room Air 05/11/25 08:00 Room Air 05/11/25 07:56 Room Air 05/11/25 06:38 Room Air 05/11/25 05:00 Room Air 05/11/25 04:00 Room Air 05/11/25 03:00 Room Air 05/11/25 00:50 Room Air 05/11/25 00:33 Room Air 05/11/25 00:18 Room Air 05/10/25 23:16 Room Air 05/10/25 22:30 05/10/25 22:30 05/10/25 22:15 05/10/25 22:00 05/10/25 21:30 05/10/25 19:54 Room Air Intake and Output 05/10/25 05/11/25 05/11/25 23:59 07:59 15:59 Intake Total 1100 / 1100 Output Total 400 / 400 Balance 1100 / 1100 -400 / -400 Intake: Intake, Total IV Amount 1100 / 1100 0.9 % Sodium Chloride 1000ML 1, 1000 / 1000 000 ml @ 999 mls/hr IV .Q1H1M ONE Rx#:[id number] Piperacillin/Tazo 4.5 gm In 0.9 100 / 100 % Sodium Chloride 100 ml @ 200 mls/hr IV ONCE ONE Rx#: [id number] Output: Output, Urine Amount 400 / 400 Other: Number of Unmeasured Voids 1 Weight 68.039 kg 66.678 kg Patient Weight 05/11/25 23:59 Weight 66.678 kg Laboratory Results - last 24 hr 05/10/25 20:01: Urine Color Yellow, Urine Appearance Clear, Urine pH 6.0, Ur Specific [place] 1.020, Urine Protein Negative, Urine Glucose (UA) Negative, Urine Ketones Negative, Urine Blood Negative, Urine Nitrate Negative, Urine Bilirubin Negative, Urine Urobilinogen 0.2, Ur Leukocyte Esterase Negative, Urine RBC Occasional, Urine WBC 3-5, Ur Squamous Epith Cells Occasional, Urine Bacteria 4+, Urine Opiates Screen Negative, Urine Methadone Screen Negative, Ur Barbituates Screen Negative, Ur Phencyclidine Scrn Negative, Ur Amphetamines Screen Negative, U Benzodiazepines Scrn Positive H, Urine Cocaine Screen Negative, U Marijuana (THC) Screen Negative 05/10/25 20:20: WBC 7.5, RBC 4.39, Hgb 14.0, Hct 40.4, MCV 92.0, MCH 31.9 H, MCHC 34.7, RDW 12.2, Plt Count 277, MPV 11.1 H, Neut % (Auto) 53.3, Lymph % (Auto) 38.1, [place] % (Auto) 5.5, Eos % (Auto) 2.1, Baso % (Auto) 0.5, Neut # (Auto) 4.0, Lymph # (Auto) 2.8, [place] # (Auto) 0.4, Eos # (Auto) 0.2, Baso # (Auto) 0.0, PT 10.3, INR 0.92, Sodium 132 L, Potassium 3.7, Chloride 100, Carbon Dioxide 26, Anion Gap 9.7, BUN 14, Creatinine 0.80, Estimated Creat Clear 90, Estimated GFR 76, Est GFR ( Amer) 92, Glucose 143 H, Calcium 8.9, Magnesium 1.7, Total Bilirubin 0.4, AST 30, ALT 29, Alkaline Phosphatase 81, Total Protein 7.7, Albumin 4.2, Globulin 3.5 H, Albumin/Globulin Ratio 1.2, Lipase 82 05/11/25 05:22: WBC 7.2, RBC 4.25, Hgb 13.5, Hct 39.9, MCV 93.9, MCH 31.8 H, MCHC 33.8, RDW 12.4, Plt Count 263, MPV 10.9 H, Neut % (Auto) 47.7, Lymph % (Auto) 41.3, [place] % (Auto) 7.5, Eos % (Auto) 2.8, Baso % (Auto) 0.4, Neut # (Auto) 3.4, Lymph # (Auto) 3.0, [place] # (Auto) 0.5, Eos # (Auto) 0.2, Baso # (Auto) 0.0, Sodium 137, Potassium 3.8, Chloride 101, Carbon Dioxide 32 H, Anion Gap 7.8, BUN 12, Creatinine 0.80, Estimated Creat Clear 89, Estimated GFR 76, Est GFR ( Amer) 92, Glucose 85 D, Calcium 8.5, Total Bilirubin 0.3, AST 26, ALT 19 D, Alkaline Phosphatase 79, Total Protein 6.8, Albumin 3.8, Globulin 3.0, Albumin/Globulin Ratio 1.3 I & O for Labs for Last 24 Hours: Intake & Output 05/08/25 05/09/25 05/10/25 05/11/25 23:59 23:59 23:59 23:59 Intake Total 1100 / 1100 Output Total 400 / 400 Balance 1100 / 1100 -400 / -400 Weight 68.039 kg 66.678 kg Constitutional: Present mild distress, average body habitus, chronically ill appearing and cooperative Respiratory: Present normal respiratory effort; Absent rhonchi, wheezes or crackles Cardiac: Present Reg Rate and Rhythm GI: Present soft, distention (Mild), tenderness (Nonfocal but worse in suprapubic region) and hyperactive bowel sounds; Absent guarding or rebound Extremities: Present normal inspection and full ROM Skin: Present intact; Absent erythema Neuro: Present Grossly Intact, alert, awake, oriented x 3 and moves all extremities Assessment and Plan *Assessment and plan (1) Abdominal pain: Status: Acute Qualifiers: Abdominal location: lower abdomen, unspecified Qualified Code(s): R10.30 - Lower abdominal pain, unspecified Category: Medical Code(s): R10.9 - Unspecified abdominal pain (2) Pelvic pain: Status: Acute Category: Medical Code(s): R10.20 - Pelvic and perineal pain unspecified side (3) Hydrosalpinx: Status: Acute Category: Medical Code(s): N70.11 - Chronic salpingitis (4) Anxiety disorder: Status: Acute Qualifiers: Anxiety disorder type: unspecified anxiety disorder Qualified Code(s): F41.9 - Anxiety disorder, unspecified Category: Medical Code(s): F41.9 - Anxiety disorder, unspecified (5) Hydronephrosis: Status: Acute Qualifiers: Hydronephrosis type: other Qualified Code(s): N13.39 - Other hydronephrosis Category: Medical Code(s): N13.30 - Unspecified hydronephrosis (6) Horseshoe kidney: Status: Acute Category: Medical Code(s): Q63.1 - Lobulated, fused and horseshoe kidney (7) UTI (urinary tract infection): Status: Acute Qualifiers: Hematuria presence: with hematuria Urinary tract infection type: acute cystitis Qualified Code(s): N30.01 - Acute cystitis with hematuria Category: Medical Code(s): N39.0 - Urinary tract infection, site not specified Plan Patient presents with intractable abdominal pain. Has known hydro salpinx and hydronephrosis. She states that she is supposed to have surgery to remove the hydrosalpinx. Recently treated for constipation and a UTI. Urinalysis today is normal and CT does not show stool burden. CT does show stable hydro salpinx as well as stable chronic hydronephrosis. Gynecology was consulted through the ER they agreed to see the patient in the morning. After discussing the case with the ER provider I agreed to admit this patient for pain control and to obtain gynecology consult. She does also have a history of nonepileptic seizures. Reportedly had a seizure in the ER and was given home dose of Depakote. No more seizures overnight. PA[employer]CH TRIMMER to evaluate today. Continuing antibiotics for UTI. Problems addressed as follows: Abdominal pain UTI Hydrosalpinx Hydroureter Horseshoe kidney - Patient's findings on CT of abdomen appear to be relatively chronic with hydrosalpinx and hydroureter. Recent UTI positive for Proteus was treated with Keflex 500 mg twice daily. Unfortunately this is not an appropriate dosing regimen and I have concern that her UTI was undertreated. Urine negative for leuk esterase and nitrite but still positive for bacteria. Will continue ceftriaxone daily while admitted. Initiate Pyridium 200 mg as needed every 8 hours for dysuria. Monitor for improvement by morning. - White count normal at 7.2. Hemoglobin 13.5. Repeat CBC, CMP, magnesium ordered for the morning - Kidney function normal with BUN 12, creatinine 0.8 - Discussed case with gynecology, do not feel her hydrosalpinx is the etiology of her pain at this time. - Discontinue morphine. Transition to Toradol 30 mg IV every 6 hours for pain. Close monitoring of kidney function given horseshoe kidney. Zofran 4 mg as needed every 8 hours for nausea or vomiting Mood order: Continue to desvenlafaxine succinate 20 Valium 5 mg nightly as needed divalproex 500 mg nightly, Seroquel 50 mg nightly Seizure disorder: - Will check a Depakote level in the morning as well as repeat her CBC and CMP. She will have pain medicine and nausea medicine ordered as needed. Valium IV as needed for seizures. Will hold off on her other home meds until verified by pharmacy. Full code Regular diet
--- NOTE | 2025-05-11 13:40 | P.CONS_ITS ---
History of Present Illness *Admission Date: 05/10/25 *History of present illness: 49-year-old female with a complex past medical history. Presents to ER with intractable abdominal pain. She describes the pain as right lower quadrant and in the suprapubic region. Also states she feels some pelvic pressure. She rates the pain a 10 out of 10. She has also developed some bladder incontinence today. Denies fever chills or bodyaches. Denies nausea vomiting or diarrhea. Has known hydrosalpinx. Was seen in the ER May 01 for abdominal pain as well. She is unable to tell me specifically if this is the same pain or if it is different. At that time she reported urinary urgency and frequency. She was given antibiotics for UTI. Urinalysis showed 2+ blood. Abdomen pelvis CT showed no acute findings, moderate to large amount of stool in the colon, stable hydrosalpinx status post hysterectomy and stable small hepatic hypodensities dating back to 2020. Transvaginal ultrasound was also done that showed no ovarian torsion and hydrosalpinx stable from CT in October 2024. She was given MiraLAX for her stool burden on CT and she states now she is having loose stools. Today CT reading does not show a stool burden and again a stable right hydrosalpinx. While in the ED she reportedly had a seizure. She does have history of this and is on Depakote. These have been described as nonepileptic. She was given a dose of her home Depakote in the ER. She states that her overnight associate said they need to remove the hydrosalpinx and that it needed to be done soon. I saw her in the office about a week ago with lower abdominal pain. She was seen in the ER a couple days before this and had been diagnosed with a urinary tract infection. She had been prescribed Keflex 500 mg twice daily. She had Proteus on the culture. It seems to be sensitive to just about everything. When I saw her in the office last week I did not think that the hydrosalpinx was causing her discomfort. She had a similar appearing hydrosalpinx on the right- hand side in October of this year. She said that her discomfort was somewhat relieved when she was taking the Pyridium I had given her last week. Since she only had it for 3 days she said the pain has come back. She now has some incontinence and says that she feels like she has to void all the time and then cannot void. It certainly possible she may have some bladder wall irritation or possibly even interstitial cystitis post UTI. [facility] Disclaimer: The information contained in this section may have been updated after the patient was seen, as this information can be updated by other users. Medical History Skin lesions Lumbar radiculopathy Benzodiazepine withdrawal Urinary tract infection symptoms Nerve pain Cervical radicular pain Sciatica Nightmares associated with chronic post-traumatic stress disorder Left leg pain Spell of altered consciousness Fall Urinary symptom or sign Dizziness Dizziness Hypokalemia Anxiety Skin lesions, generalized Abnormal electrocardiogram [ECG] [EKG] Dyspnea Depression Strep pharyngitis Complete miscarriage Acute pain of left knee Arm pain, left Swelling of labia Allergic reaction caused by a drug UTI (urinary tract infection) No significant past medical history Rash and nonspecific skin eruption Generalized seizure COVID-19 Vomiting Headache Gastroenteritis Pharyngitis Exposure to COVID-19 virus Viral syndrome Chronic lumbar pain COPD exacerbation Strain of lumbar region Concussion Fall Seizure Medication reaction Lower extremity pain Functional abdominal pain syndrome Neck Pain Elbow pain Anxiety Cervical strain Acute bronchitis Bronchitis Surgical History History of kidney surgery History of D&C H/O: History of appendectomy History of partial hysterectomy H/O cervical spine surgery Family History Diabetes Heart attack Cancer Hypertension Stroke Social History Smoking Status: Former smoker tobacco type: cigarettes packs per day: 1 smoking status stop date: 2015 alcohol intake: never substance use type: denies use current occupational status: unemployed and other Travel in the last 8 weeks?: None household members: none housing: other Review of Systems Review of Systems Review of systems:: pertinent systems reviewed and negative unless documented below *Neurologic Neurologic: Reports system reviewed and no additional complaints, except as documented Meds Home Medications and Allergies Home Medications ?Medication ?Instructions ?Recorded ?Confirmed ?Type lidocaine 4 % topical patch 1 patch topical DAILY PRN pain #30 04/29/24 05/09/25 Rx (Aspercreme (lidocaine)) ea cholecalciferol (vitamin D3) 50 50 mcg PO DAILY #90 ca ps 06/11/24 05/11/25 Rx mcg (2,000 unit) capsule cyanocobalamin (vitamin B-12) 1,000 mcg PO DAILY #90 t abs 06/11/24 05/11/25 Rx 1,000 mcg tablet naloxone 4 mg/actuation nasal 1 spray intranasal Q3M P RN opioid 10/01/24 05/11/25 Rx spray (Narcan) overdose #2 ea divalproex 250 mg tablet,delayed 500 mg (2 x 250 mg) P O HS #60 tabs 10/27/24 05/11/25 Rx release quetiapine 100 mg tablet 50 mg (1/2 x 100 mg) PO HS P RN as 03/28/25 05/11/25 Rx needed #30 tabs rizatriptan 10 mg disintegrating 10 mg PO DAILY 05/11/25 History tablet ([employer]) diazepam 5 mg tablet 5 mg PO HS PRN anxiety #30 t abs 04/27/25 05/11/25 Rx cephalexin 500 mg capsule 500 mg PO Q12H 10 days #20 c aps 05/01/25 05/11/25 Rx polyethylene glycol 3350 17 17 g PO DAILY 10 days #170 grams 05/01/25 05/11/25 Rx gram/dose oral powder (Miralax) desvenlafaxine succinate 25 mg 25 mg PO DAILY 05/11/25 05/11/25 History tablet,extended release 24 hr desvenlafaxine succinate 50 mg 50 mg PO DAILY 05/11/25 05/11/25 History tablet,extended release 24 hr New Prescriptions to Start Prescriptions: Allergies Allergy/AdvReac Type Severity Reaction Status Date / Time nitrous oxide Allergy Severe Unknown Verified 05/09/25 15:55 allergy reaction prednisone Allergy Mild shortness Verified 05/09/25 15:55 of breath codeine (CODEINE) Allergy Unknown Unknown Verified 05/09/25 15:55 allergy reaction fluoxetine (From PROZAC) Allergy Unknown Unknown Verified 05/09/25 15:55 allergy reaction ibuprofen (IBUPROFEN) Allergy Unknown Unknown Verified 05/09/25 15:55 allergy reaction latex (LATEX) Allergy Unknown Unknown Verified 05/09/25 15:55 allergy reaction loratadine (From CLARITIN) Allergy Unknown Unknown Verified 05/09/25 15:55 allergy reaction magnesium (MAGNESIUM) Allergy Unknown Unknown Verified 05/09/25 15:55 allergy reaction nitrofurantoin Allergy Unknown Unknown Verified 05/09/25 15:55 (NITROFURANTOIN) allergy reaction oxycodone (OXYCODONE) Allergy Unknown Unknown Verified 05/09/25 15:55 allergy reaction risperidone Allergy Unknown Unknown Verified 05/09/25 15:55 allergy reaction sumatriptan (SUMATRIPTAN) Allergy Unknown Unknown Verified 05/09/25 15:55 allergy reaction tramadol (TRAMADOL) Allergy Unknown Unknown Verified 05/09/25 15:55 allergy reaction trazodone (TRAZODONE) Allergy Unknown Altered Verified 05/09/25 15:55 Sense of Taste duloxetine Allergy Unknown Verified 05/09/25 15:55 allergy reaction metronidazole (From Flagyl) Allergy Hallucinati Verified 05/09/25 15:55 ons Exam (Inpt) Vital signs and Labs for Last 24 Hours: Temp Pulse Resp BP Pulse Ox O2 Del Method 98 F 65 16 113/72 98 Room Air 05/11/25 11:45 05/11/25 11:45 05/11/25 11:45 05/11/25 11:45 05/11/25 11:45 05/11/25 13:00 Laboratory Results - last 24 hr 05/10/25 20:01: Urine Color Yellow, Urine Appearance Clear, Urine pH 6.0, Ur Specific [place] 1.020, Urine Protein Negative, Urine Glucose (UA) Negative, Urine Ketones Negative, Urine Blood Negative, Urine Nitrate Negative, Urine Bilirubin Negative, Urine Urobilinogen 0.2, Ur Leukocyte Esterase Negative, Urine RBC Occasional, Urine WBC 3-5, Ur Squamous Epith Cells Occasional, Urine Bacteria 4+, Urine Opiates Screen Negative, Urine Methadone Screen Negative, Ur Barbituates Screen Negative, Ur Phencyclidine Scrn Negative, Ur Amphetamines Screen Negative, U Benzodiazepines Scrn Positive H, Urine Cocaine Screen Negative, U Marijuana (THC) Screen Negative 05/10/25 20:20: WBC 7.5, RBC 4.39, Hgb 14.0, Hct 40.4, MCV 92.0, MCH 31.9 H, MCHC 34.7, RDW 12.2, Plt Count 277, MPV 11.1 H, Neut % (Auto) 53.3, Lymph % (Auto) 38.1, [place] % (Auto) 5.5, Eos % (Auto) 2.1, Baso % (Auto) 0.5, Neut # (Auto) 4.0, Lymph # (Auto) 2.8, [place] # (Auto) 0.4, Eos # (Auto) 0.2, Baso # (Auto) 0.0, PT 10.3, INR 0.92, Sodium 132 L, Potassium 3.7, Chloride 100, Carbon Dioxide 26, Anion Gap 9.7, BUN 14, Creatinine 0.80, Estimated Creat Clear 90, Estimated GFR 76, Est GFR ( Amer) 92, Glucose 143 H, Calcium 8.9, Magnesium 1.7, Total Bilirubin 0.4, AST 30, ALT 29, Alkaline Phosphatase 81, Total Protein 7.7, Albumin 4.2, Globulin 3.5 H, Albumin/Globulin Ratio 1.2, Lipase 82 05/11/25 05:22: WBC 7.2, RBC 4.25, Hgb 13.5, Hct 39.9, MCV 93.9, MCH 31.8 H, MCHC 33.8, RDW 12.4, Plt Count 263, MPV 10.9 H, Neut % (Auto) 47.7, Lymph % (Auto) 41.3, [place] % (Auto) 7.5, Eos % (Auto) 2.8, Baso % (Auto) 0.4, Neut # (Auto) 3.4, Lymph # (Auto) 3.0, [place] # (Auto) 0.5, Eos # (Auto) 0.2, Baso # (Auto) 0.0, Sodium 137, Potassium 3.8, Chloride 101, Carbon Dioxide 32 H, Anion Gap 7.8, BUN 12, Creatinine 0.80, Estimated Creat Clear 89, Estimated GFR 76, Est GFR ( Amer) 92, Glucose 85 D, Calcium 8.5, Total Bilirubin 0.3, AST 26, ALT 19 D, Alkaline Phosphatase 79, Total Protein 6.8, Albumin 3.8, Globulin 3.0, Albumin/Globulin Ratio 1.3 I & O for Labs for Last 24 Hours: Intake & Output 05/09/25 05/10/25 05/11/25 05/12/25 11:59 11:59 11:59 11:59 Intake Total 1100 / 1100 50 / 50 Output Total 400 / 400 Balance 700 / 700 50 / 50 Weight 147 lb HEENT Head: Present normocephalic ENT: Present normal exam Neck: Present normal inspection Respiratory: Present normal respiratory effort; Absent accessory muscle use Cardiac: Present Reg Rate and Rhythm GI: Present soft, tenderness and normal bowel sounds; Absent distention, guarding or rebound Extremities: Present full ROM Assessment and Plan *Assessment and plan (1) Horseshoe kidney: Status: Acute Category: Medical Code(s): Q63.1 - Lobulated, fused and horseshoe kidney (2) Hydronephrosis: Status: Acute Qualifiers: Hydronephrosis type: other Qualified Code(s): N13.39 - Other hydronephrosis Category: Medical Code(s): N13.30 - Unspecified hydronephrosis (3) Abdominal pain: Status: Acute Qualifiers: Abdominal location: lower abdomen, unspecified Qualified Code(s): R10.30 - Lower abdominal pain, unspecified Category: Medical Code(s): R10.9 - Unspecified abdominal pain (4) Pelvic pain: Status: Acute Category: Medical Code(s): R10.20 - Pelvic and perineal pain unspecified side (5) Hydrosalpinx: Status: Acute Category: Medical Code(s): N70.11 - Chronic salpingitis (6) UTI (urinary tract infection): Status: Acute Qualifiers: Hematuria presence: with hematuria Urinary tract infection type: acute cystitis Qualified Code(s): N30.01 - Acute cystitis with hematuria Category: Medical Code(s): N39.0 - Urinary tract infection, site not specified Plan 1. Recent CT scan did not show any change in her abdomen. She continues to have a hydrosalpinx that has been there since at least October. There has been no change in the size of this. There is no fluid in the pelvis. 2. I suspect that her discomfort may be related to her bladder and I have spoken with Dr. Coulter and we will start Pyridium back again and see if this helps her. She may also have an element of interstitial cystitis and a urology consult may be considered. 3. I told her that I would remove her hydrosalpinx but I told her that I did not think this was what was causing her discomfort. At this point in time there is no emergent need for surgery. I think we can just treat her conservatively at this point in time. We will contact her once she has been discharged and set up a laparoscopy to remove her tube.
[2025-05-11] MEDS: KETOROLAC 30MG/ML VIAL 30 MG IV (15:52)
--- NOTE | 2025-05-11 18:30 | PC.NURSE ---
PT IS RESTING IN BED. ALERT AND ORIENTED X4. PT HAS SLEPT ON AND OFF T/O THE SHIFT. AMBULATES TO THE BATHROOM WITH 1 ASSIST. PT HAS BEEN VOIDING SMALL AMOUNTS AT A TIME. MEDICATED PER MAR FOR ABDOMINAL DISCOMFORT. EATING AND DRINKING WELL. LUNG SOUNDS CLEAR. ABDOMEN SOFT/TENDER WITH ACTIVE BOWEL SOUNDS. PASSING FLATUS. WILL CONTINUE TO MONITOR.
[2025-05-11] MEDS: PHENAZOPYRIDINE 200MG TABLET 200 MG PO (18:56)
[2025-05-11] MEDS: DIVALPROEX 500MG (Delayed-Release) TABLET 500 MG PO (20:14)
[2025-05-11] MEDS: diazePAM 5MG TABLET 5 MG PO (20:18)
[2025-05-12] VITALS: BP 115/53; PULSE 74; RESP 18; TEMP 37.1; O2SAT 95
[2025-05-12 04:00] VITALS: BP 141/81; PULSE 69; RESP 16; TEMP 36.6; O2SAT 94; BMI 26.6
[2025-05-12] MEDS: KETOROLAC 30MG/ML VIAL 30 MG IV (04:59)
[2025-05-12 07:12] LABS: Hematocrit 37.6 % (37.0-47.0); Hemoglobin 12.3 g/dL (12.2-16.2); Immature Granulocytes % 0.2 %; Mean Corpuscular HGB Conc 32.7 g/dL (31.8-35.4); Mean Corpuscular Hemoglobin 30.9 pg (27.0-31.2); Mean Corpuscular Volume 94.5 fl (81-99); Nucleated Red Blood Cells % 0 %; Platelet Count 237 K/mm3 (142-424); Red Blood Count 3.98 M/mm3 (4.20-5.40); Red Cell Distribution Width-SD 43.3 fL; White Blood Count 6.3 K/mm3 (4.8-10.8)
[2025-05-12 07:23] LABS: Alanine Aminotransferase 25 U/L (12-78); Albumin Level 3.5 g/dl (3.5-5.0); Albumin/Globulin Ratio 1.3 (1.1-1.8); Alkaline Phosphatase 88 U/L (38-126); Anion Gap 8.2 mEq/L (5-15); Aspartate Amino Transferase 32 U/L (14-36); Bilirubin,Total 0.3 mg/dl (0.2-1.3); Blood Urea Nitrogen 23 mg/dl (7-17); Calcium 8.7 mg/dl (8.4-10.2); Carbon Dioxide 28 mmol/L (22.0-30.0); Chloride 104 mmol/L (98-107); Creatinine Clearance Estimated 91 mL/min (50-200); Creatinine,Serum 0.80 mg/dl (0.52-1.04); Estimated Glomerular Filt Rate 76 ml/min (>60); GFR (African American) 92 ML/MIN (>60); Globulin 2.6 g/dL (1.3-3.2); Glucose 98 mg/dl (74-100); Magnesium 2.1 mg/dl (1.6-2.3); Potassium 4.2 mmoL/L (3.5-5.1); Sodium 136 mmol/L (136-145); Total Protein,Serum 6.1 g/dl (6.3-8.2)
[2025-05-12 08:00] VITALS: BP 129/96; PULSE 73; RESP 16; TEMP 36.6; O2SAT 98
[2025-05-12] MEDS: PHENAZOPYRIDINE 200MG TABLET 200 MG PO (08:06)
[2025-05-12] MEDS: VENLAFAXINE XR 75MG CAPSULE 75 MG PO (08:06)
--- NOTE | 2025-05-12 09:03 | P.DS_ITS ---
General Admission date:: 05/10/25 Discharge date: 05/12/25 HPI HPI HPI: 49-year-old female with a complex past medical history. Presents to ER with intractable abdominal pain. She describes the pain as right lower quadrant and in the suprapubic region. Also states she feels some pelvic pressure. She rates the pain a 10 out of 10. She has also developed some bladder incontinence today. Denies fever chills or bodyaches. Denies nausea vomiting or diarrhea. Has known hydrosalpinx. Was seen in the ER May 01 for abdominal pain as well. She is unable to tell me specifically if this is the same pain or if it is different. At that time she reported urinary urgency and frequency. She was given antibiotics for UTI. Urinalysis showed 2+ blood. Abdomen pelvis CT showed no acute findings, moderate to large amount of stool in the colon, stable hydrosalpinx status post hysterectomy and stable small hepatic hypodensities dating back to 2020. Transvaginal ultrasound was also done that showed no ova zonia torsion and hydrosalpinx stable from CT in October 2024. She was given MiraLAX for her stool burden on CT and she states now she is having loose stools. Today CT reading does not show a stool burden and again a stable right hydrosalpinx. While in the ED she reportedly had a seizure. She does have history of this and is on Depakote. These have been described as nonepileptic. She was given a dose of her home Depakote in the ER. She states that her hydraulic miner said they need to remove the hydrosalpinx and that it needed to be done soon. I saw her in the office about a week ago with lower abdominal pain. She was seen in the ER a couple days before this and had been diagnosed with a urinary tract infection. She had been prescribed Keflex 500 mg twice daily. She had Proteus on the culture. It seems to be sensitive to just about everything. When I saw her in the office last week I did not think that the hydrosalpinx was causing her discomfort. She had a similar appearing hydrosalpinx on the right- hand side in October of this year. She said that her discomfort was somewhat relieved when she was taking the Pyridium I had given her last week. Since she only had it for 3 days she said the pain has come back. She now has some incontinence and says that she feels like she has to void all the time and then cannot void. It certainly possible she may have some bladder wall irritation or possibly even interstitial cystitis post UTI. Hospital Course Hospital Course Hospital Course: Patient presents with intractable abdominal pain. Has known hydro salpinx and hydronephrosis. She states that she is supposed to have surgery to remove the hydrosalpinx. Recently treated for constipation and a UTI. Urinalysis today is normal and CT does not show stool burden. CT does show stable hydro salpinx as well as stable chronic hydronephrosis. Gynecology was consulted through the ER they agreed to see the patient in the morning. After discussing the case with the ER provider I agreed to admit this patient for pain control and to obtain gynecology consult. She does also have a history of nonepileptic seizures. Reportedly had a seizure in the ER and was given home dose of Depakote. No further seizure activity during admission. Abdominal pain improved with initiation of ceftriaxone and Pyridium. Follows an outpatient with CASE MANAGEMENT DIRECTOR. Stable discharge home. 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 Recent UTI positive for Proteus was treated with Keflex 500 mg twice daily. Concerned this was not adequate dosing even though it is an alternative dose regimen. Treated with ceftriaxone 1 g IV during admission and started on Pyridium with improvement in her symptoms. White count remained normal. Recommend completing Keflex course and continuing Pyridium at discharge. Follow-up with gynecology as an outpatient. At this time they do not feel her hydrosalpinx is the etiology of her pain but warrants further discussion about possible surgical intervention. Patient tolerating p.o. intake, feeling significantly better by morning of discharge with no significant abdominal pain. Mood order: Continue to desvenlafaxine succinate 75mg daily, Valium 5 mg nightly as needed, divalproex 500 mg nightly, Seroquel 50 mg nightly Seizure disorder: - Depakote level pending. Is a send out. No further seizure activity however. Remained stable on room air. Exam Data for Last 24 hours Vital signs and Labs for Last 24 Hours: Temp Pulse Resp BP Pulse Ox O2 Del Method 98 F 73 16 129/96 H 98 Room Air 05/12/25 08:00 05/12/25 08:00 05/12/25 08:00 05/12/25 08:00 05/12/25 08:00 05/12/25 08:00 Laboratory Results - last 24 hr 05/12/25 05:54: WBC 6.3, RBC 3.98 L, Hgb 12.3, Hct 37.6, MCV 94.5, MCH 30.9, MCHC 32.7, RDW 12.4, Plt Count 237, MPV 11.4 H, Neut % (Auto) 43.2, Lymph % (Auto) 45.9, [place] % (Auto) 7.0, Eos % (Auto) 3.2, Baso % (Auto) 0.5, Neut # (Auto) 2.7, Lymph # (Auto) 2.9, [place] # (Auto) 0.4, Eos # (Auto) 0.2, Baso # (Auto) 0.0, Sodium 136, Potassium 4.2, Chloride 104, Carbon Dioxide 28, Anion Gap 8.2, BUN 23 H D, Creatinine 0.80, Estimated Creat Clear 91, Estimated GFR 76, Est GFR ( Amer) 92, Glucose 98, Calcium 8.7, Magnesium 2.1 D, Total Bilirubin 0.3, AST 32, ALT 25 D, Alkaline Phosphatase 88, Total Protein 6.1 L, Albumin 3.5, Globulin 2.6, Albumin/Globulin Ratio 1.3 I & O for Last 24 hours: Intake & Output 05/09/25 05/10/25 05/11/25 05/12/25 23:59 23:59 23:59 23:59 Intake Total 1100 / 1100 650 / 650 520 / 520 Output Total 400 / 400 0 / 0 Balance 1100 / 1100 250 / 250 520 / 520 Weight 68.039 kg 66.678 kg 68.316 kg Constitutional Constitutional: no acute distress *Routine HEENT Exam Head: Present normocephalic Eye: Present EOMI and PERRL ENT: Present mucous membranes moist *Routine Neck Exam Neck: Present supple; Absent lymphadenopathy *Routine Respiratory Exam Respiratory: Present CTA bilaterally *Routine Cardiovascular Exam Cardiovascular: Present RRR *Routine Abdominal Exam Abdominal: Present soft and normoactive bowel sounds; Absent tenderness *Routine Rectal Exam Patient deferred: visual exam *Routine Exam Patient deferred: external exam *Routine Extremities Exam Extremities: Absent cyanosis, clubbing or edema *Routine Skin Exam Skin: Present warm; Absent rash *Routine Neurological Exam Neurological: Present alert, oriented X3 and moving all extremities; Absent altered mental status Results Data Completed and Pending Labs on day of discharge: Labs from last 24 hours 05/12/25 05:54 WBC 6.3 RBC 3.98 L Hgb 12.3 Hct 37.6 MCV 94.5 MCH 30.9 MCHC 32.7 RDW 12.4 Plt Count 237 MPV 11.4 H Neut % (Auto) 43.2 Lymph % (Auto) 45.9 [place] % (Auto) 7.0 Eos % (Auto) 3.2 Baso % (Auto) 0.5 Neut # (Auto) 2.7 Lymph # (Auto) 2.9 [place] # (Auto) 0.4 Eos # (Auto) 0.2 Baso # (Auto) 0.0 Sodium 136 Potassium 4.2 Chloride 104 Carbon Dioxide 28 Anion Gap 8.2 BUN 23 H D Creatinine 0.80 Estimated Creat Clear 91 Estimated GFR 76 Est GFR ( Amer) 92 Glucose 98 Calcium 8.7 Magnesium 2.1 D Total Bilirubin 0.3 AST 32 ALT 25 D Alkaline Phosphatase 88 Total Protein 6.1 L Albumin 3.5 Globulin 2.6 Albumin/Globulin Ratio 1.3 DS: Diagnosis Discharge Diagnosis (1) Abdominal pain: Status: Acute Code(s): R10.9 - Unspecified abdominal pain Qualifiers: Abdominal location: lower abdomen, unspecified Qualified Code(s): R10.30 - Lower abdominal pain, unspecified (2) Pelvic pain: Status: Acute Code(s): R10.20 - Pelvic and perineal pain unspecified side (3) Hydrosalpinx: Status: Acute Code(s): N70.11 - Chronic salpingitis (4) Anxiety disorder: Status: Acute Code(s): F41.9 - Anxiety disorder, unspecified Qualifiers: Anxiety disorder type: unspecified anxiety disorder Qualified Code(s): F41.9 - Anxiety disorder, unspecified (5) Hydronephrosis: Status: Acute Code(s): N13.30 - Unspecified hydronephrosis Qualifiers: Hydronephrosis type: other Qualified Code(s): N13.39 - Other hydronephrosis (6) Horseshoe kidney: Status: Acute Code(s): Q63.1 - Lobulated, fused and horseshoe kidney (7) UTI (urinary tract infection): Status: Acute Code(s): N39.0 - Urinary tract infection, site not specified Qualifiers: Hematuria presence: with hematuria Urinary tract infection type: acute cystitis Qualified Code(s): N30.01 - Acute cystitis with hematuria Problem details: Due to Proteus mirabilis (8) Urinary tract infection due to Proteus: Status: Acute Code(s): N39.0 - Urinary tract infection, site not specified; B96.4 - Proteus (mirabilis) (morganii) as the cause of diseases classified elsewhere Problem details: Present on admission Meds Home Medications and Allergies Home Medications ?Medication ?Instructions ?Recorded ?Confirmed ?Type cholecalciferol (vitamin D3) 50 50 mcg PO DAILY #90 ca ps 06/11/24 05/11/25 Rx mcg (2,000 unit) capsule cyanocobalamin (vitamin B-12) 1,000 mcg PO DAILY #90 t abs 06/11/24 05/11/25 Rx 1,000 mcg tablet naloxone 4 mg/actuation nasal 1 spray intranasal Q3M P RN opioid 10/01/24 05/11/25 Rx spray (Narcan) overdose #2 ea divalproex 250 mg tablet,delayed 500 mg (2 x 250 mg) P O HS #60 tabs 10/27/24 05/11/25 Rx release quetiapine 100 mg tablet 50 mg (1/2 x 100 mg) PO HS P RN as 03/28/25 05/11/25 Rx needed #30 tabs rizatriptan 10 mg disintegrating 10 mg PO DAILY 05/11/25 History tablet (Maxalt-SOLAR SALES ADVISOR) diazepam 5 mg tablet 5 mg PO HS PRN anxiety #30 t abs 04/27/25 05/11/25 Rx cephalexin 500 mg capsule 500 mg PO Q12H 10 days #20 c aps 05/01/25 05/11/25 Rx polyethylene glycol 3350 17 17 g PO DAILY 10 days #170 grams 05/01/25 05/11/25 Rx gram/dose oral powder (Miralax) desvenlafaxine succinate 25 mg 25 mg PO DAILY 05/11/25 05/11/25 History tablet,extended release 24 hr desvenlafaxine succinate 50 mg 50 mg PO DAILY 05/11/25 05/11/25 History tablet,extended release 24 hr phenazopyridine 200 mg tablet 200 mg PO TIDP PRN Dysur ia 4 days 05/12/25 Rx #12 tabs New Prescriptions to Start Prescriptions: phenazopyridine Miles Coulter Allergies Allergy/AdvReac Type Severity Reaction Status Date / Time nitrous oxide Allergy Severe Unknown Verified 05/09/25 15:55 allergy reaction prednisone Allergy Mild shortness Verified 05/09/25 15:55 of breath codeine (CODEINE) Allergy Unknown Unknown Verified 05/09/25 15:55 allergy reaction fluoxetine (From PROZAC) Allergy Unknown Unknown Verified 05/09/25 15:55 allergy reaction ibuprofen (IBUPROFEN) Allergy Unknown Unknown Verified 05/09/25 15:55 allergy reaction latex (LATEX) Allergy Unknown Unknown Verified 05/09/25 15:55 allergy reaction loratadine (From CLARITIN) Allergy Unknown Unknown Verified 05/09/25 15:55 allergy reaction magnesium (MAGNESIUM) Allergy Unknown Unknown Verified 05/09/25 15:55 allergy reaction nitrofurantoin Allergy Unknown Unknown Verified 05/09/25 15:55 (NITROFURANTOIN) allergy reaction oxycodone (OXYCODONE) Allergy Unknown Unknown Verified 05/09/25 15:55 allergy reaction risperidone Allergy Unknown Unknown Verified 05/09/25 15:55 allergy reaction sumatriptan (SUMATRIPTAN) Allergy Unknown Unknown Verified 05/09/25 15:55 allergy reaction tramadol (TRAMADOL) Allergy Unknown Unknown Verified 05/09/25 15:55 allergy reaction trazodone (TRAZODONE) Allergy Unknown Altered Verified 05/09/25 15:55 Sense of Taste duloxetine Allergy Unknown Verified 05/09/25 15:55 allergy reaction metronidazole (From Flagyl) Allergy Hallucinati Verified 05/09/25 15:55 ons Discharge Plan Disposition Patient Disposition: Home, Self-Care Condition: Fair Follow up Plan Follow up with: Benny Martinez MD [Staff Physician, CASE MANAGEMENT DIRECTOR] - 05/24/25 2:30 pm Yousif Garcia DO [Primary Care Provider, Family Practice] - 05/20/25 1:30 pm Prescriptions/Medication Reconciliation: New phenazopyridine 200 mg Tablet 200 mg PO TIDP PRN (Reason: Dysuria) 4 Days Qty: 12 0RF Continued quetiapine 100 mg tablet 50 mg PO HS PRN (Reason: as needed) Qty: 30 2RF divalproex 250 mg tablet,delayed release (DR/EC) 500 mg PO HS Qty: 60 11RF Rx Instructions: TAKE TWO TABLETS BY MOUTH EVERY DAY AT BEDTIME FOR seizures naloxone [Narcan] 4 mg/actuation spray,non-aerosol 1 spray intranasal Q3M PRN (Reason: opioid overdose) Qty: 2 0RF Rx Instructions: spray 1 dose into ONE nostril; alternate nostrils w each dose until help arrives cyanocobalamin (vitamin B-12) 1,000 mcg tablet 1,000 mcg PO DAILY Qty: 90 3RF cholecalciferol (vitamin D3) 50 mcg (2,000 unit) capsule 50 mcg PO DAILY Qty: 90 3RF diazepam 5 mg tablet 5 mg PO HS PRN (Reason: anxiety) Qty: 30 0RF cephalexin 500 mg capsule 500 mg PO Q12H 10 Days Qty: 20 0RF polyethylene glycol 3350 [Miralax] 17 gram/dose powder 17 g PO DAILY 10 Days Qty: 170 0RF rizatriptan [Maxalt-[employer]AR SALES ADVISOR] 10 mg tablet,disintegrating 10 mg PO DAILY Rx Instructions: take 1 tab at onset of headache; if no relief may repeat 1 tab after at least 2 hrs; max = 3 tabs/24 hr PO desvenlafaxine succinate 50 mg tablet extended release 24 hr 50 mg PO DAILY desvenlafaxine succinate 25 mg tablet extended release 24 hr 25 mg PO DAILY Patient Comments: TAKE ONE TABLET BY MOUTH EVERY DAY, take with a 50mg tablet FOR a total of 75mg daily Problem Reconciliation Problems Reviewed?: Yes Patient Discharge Instructions ACTIVITY: Continue current activity DIET: continue same diet Patient Instructions: Acute Abdominal Pain, Hydronephrosis in Adults Print Language: Prydeinig Providers Primary Care Provider: Yousif Garcia Admit Provider: Miles Coulter Attending Provider: Miles Coulter
--- NOTE | 2025-05-12 09:35 | HMH.PHAAMS2 ---
- Antimicrobial Stewardship Review reviewed - no change Stewardship interventions: culture & sensitivity review (PROTEUS MIRABILIS IN URINE CX ON 05/04/25 RESULTED. SENSITIVE TO ROCEPHIN. REPEAT CX PENDING.)
[2025-05-12] MEDS: CEFTRIAXONE 1 GM 1 GM in 0.9 % SODIUM CHLORIDE 50 ML IV (10:37)
--- NOTE | 2025-05-13 12:50 | SW/DCPLANNER ---
Addendum entered by Diamond Bello 05/13/25 12:51: Patient stated that she is still sore. Patient stated that she is aware of her upcoming appointments. Patient stated that she was able to sweet pickled fruit maker her new medicine. Patient stated that she has no concerns or questions at this time. Smiley Simon Original Note: Spoke with patient on the phone. Patient stated that she is doing good.
--- NOTE | 2025-05-14 08:11 | PC.NURSE ---
Urine culture results forwarded to hospitalist.
== END 2025-05-12 12:50 | disposition home or self-care (01) ==
LOC: ER 20:05 → 2ND 23:12
PROVIDERS: Nurse Practitioner; Nurse Practitioner Acute Care; Admitting Provider Internal Medicine Adolescent Medicine; Emergency Provider Student in an Organized Health Care Education/Training Program; PCP Internal Medicine; Visit Provider Internal Medicine Adolescent Medicine
DX: N70.11 Chronic salpingitis (principal); N13.39 Other hydronephrosis; Q63.1 Lobulated, fused and horseshoe kidney; N30.01 Acute cystitis with hematuria; B96.4 Proteus (mirabilis) (morganii) as the cause of diseases classified elsewhere; G40.909 Epilepsy, unspecified, not intractable, without status epilepticus; Z79.899 Other long term (current) drug therapy; Z88.6 Allergy status to analgesic agent; Z88.8 Allergy status to other drugs, medicaments and biological substances; Z88.5 Allergy status to narcotic agent; Z91.040 Latex allergy status; Z90.710 Acquired absence of both cervix and uterus; Z87.891 Personal history of nicotine dependence; Z56.0 Unemployment, unspecified; F41.9 Anxiety disorder, unspecified
CPT/HCPCS: 36415; 74177; 80053; 80165; 80307; 81001; 83690; 83735; 85025; 85610; 87086; 87088; 87186; 96365; 96367; 96375; 96376; 97162; 97166; 99285; G0378; J0696; J1885; J2270; J2405; J2543; J7030; Q9967

== ENCOUNTER → 2025-05-23 08:02 | Outpatient (CLI) | payer OTHER, SELFPAY ==
--- OUTSIDE RECORDS SUMMARY | 2025-05-23 08:07 | XMS_ITS | Encounter Summary ---
Author Organization [employer] ([place], [place], [place], [place], [place]) Address [address] [place] [address] Care Team Providers Care Scraper Meat Name Role Phone Unavailable Primary Care Provider Unavailabl e Encounter Details Date Type Department Care Team (Late st Contact Info) Description 04/19/2020 Transcribed Document [facility] [place] [address] ProviderEder MD [address] [place] [address] Social History Tobacco Use Types [...] On: 04/19/2020 13:27 EDT by ALESSIO MAXWELL, RN-Student Support Counselor Final Discharge Planning Discharge Arrangements : Patient [...] Home/Residential/Penitentiary or Self Care -01 ALESSIO MAXWELL, RN-Student Support Counselor - 04/19/2020 13:27 EDT Final Narrative Note Final Narrative Note : Pt to discharge to home. No discharge needs noted. ALESSIO MAXWELL RN-Student Support Counselor - 04/19/2020 13:27 EDT documented in this encounter Plan of Treatment Not on file documented as of this encounter Visit Diagnoses Not on filedocumented in this encounter
--- OUTSIDE RECORDS SUMMARY | 2025-05-23 08:07 | XMS_ITS | Encounter Summary ---
Author Organization [employer] ([place], [place], [place], [place], [place]) Address [address] [place] [address] Care Team Providers Care Tobacco Sweeper Name Role Phone Unavailable Primary Care Provider Unavailabl e Encounter Details Date Type Department Care Team (Late st Contact Info) Description 04/17/2020 Transcribed Document [facility] [place] [facility] [place] [address] ProviderEder MD [address] [place] [address] Social History Tobacco Use Types [...]
--- OUTSIDE RECORDS SUMMARY | 2025-05-23 08:07 | XMS_ITS | Encounter Summary ---
Author Organization [employer] ([place], [place], [place], [place], [place]) Address [address] [place] [address] Care Team Providers Care Panel Builder Name Role Phone Unavailable Primary Care Provider Unavailabl e Encounter Details Date Type Department Care Team (Late st Contact Info) Description 04/17/2020 Transcribed Document [facility] [place] [address] [place] [address] ProviderEder MD [address] [place] [address] Social History Tobacco Use Types [...]
--- OUTSIDE RECORDS SUMMARY | 2025-05-23 08:07 | XMS_ITS | Encounter Summary ---
Author Organization [employer] ([place], [place], [place], [place], [place]) Address [address] [place] [address] Care Team Providers Care Billposting Supervisor Name Role Phone Unavailable Primary Care Provider Unavailabl e Encounter Details Date Type Department Care Team (Late st Contact Info) Description 04/19/2020 Transcribed Document [facility] [place] [address] [place] [address] ProviderEder MD [address] [place] [address] Social History Tobacco Use Types [...] if you have a seizure. ??? Take tplc-[id number]-yvaaomt and prescription medicines only as told by [...] 08/01/2006 Document Revised: 05/29/2018 Document Reviewed: 03/28/2017 [email or web address] Patient Education ? 2020 [email or web address] documented in this encounter Plan of Treatment Not on file documented as of this encounter Visit Diagnoses Not on filedocumented in this encounter
--- OUTSIDE RECORDS SUMMARY | 2025-05-23 08:07 | XMS_ITS | Clinical Summary ---
Author Organization [facility] Address [address] [place] [address] Care Team Providers Care Machine Heddle Cleaner Name Role Phone NoelBhumi Ny ASHRAF Primary Care Provider [phone] Allergies Active Allergy Reactions Criticality Noted Date [...] crush, chew, or split. Active HYDROcodone-delgado taminophen ([place]) 5-325 MG tablet Take 1 tablet by [...] any time in the past 12 m [facility], were you homeless or living in a correction (including now)? No 11/25/2024 Utilities Answer Date Recorded In the past 12 months has th e [employer], gas, oil, or water [employer] threatened to shut off services in your [...] UKY-Depression Screening 1974 UKY-Infant/Child/Adol SDOH Screenings 1974 MEC-LECHW-31 Vaccine (#1) 1979 UKY-DTaP,Tdap,and Td Vaccine s [...] Reactive Non Reactive 11/23/2024 1:41 AM EDT [facility] Comment:Screening for HIV 1 & 2 antibodies, and P24 antigen is NONREACTIVE. No confirmatory testing is required. Blood Venous blood specimen / Unknown Venipuncture / Unknown 11/23/2024 12:36 AM EDT 11/23/2024 1:03 AM EDT Rudy Desai MD LAB BLOOD ORDERABLES Final Re sult Performing Organization Address City/[facility]/ZIP Co de Phone Number [facility] [address] [place] [address] * Hepatitis C Antibody - ED (11/23/2024 12:36 AM EDT) Hepatitis C Antibody Negative Negative 11/23/2024 1:44 AM EDT [facility] Blood Venous blood specimen / Unknown Venipuncture / Unknown 11/23/2024 12:36 AM EDT 11/23/2024 1:03 AM EDT Rudy Desai MD LAB BLOOD ORDERABLES Final Re sult [facility] [address] [place] [address] from Last 3 Months or Most Recently Relevant to Health Maintenance Insurance [address], [place] [address] [employer] [facility] MEDICAID Advance Directives * Full Code (Latest Code Status on File) Date Activated Date Inactivated Comments 11/23/2024 2:32 PM 11/26/2024 5:07 PM Question Answer Comments I have reviewed the capacity from the link above and, if needed, have updated to appropriate status: Yes Care Teams Machine Heddle Cleaner Relationship Specialty Start Date End Date Bhumi Cohen, COLD TYPE COMPOSING MACHINE OPERATOR [address] [place] [address] PCP - General 11/25/24
--- OUTSIDE RECORDS SUMMARY | 2025-05-23 08:07 | XMS_ITS | Encounter Summary ---
Author Organization [employer] ([place], [place], [place], [place], [place]) Address [address] [place] [address] Care Team Providers Care Radio Commentator Name Role Phone Unavailable Primary Care Provider Unavailabl e Encounter Details Date Type Department Care Team (Late st Contact Info) Description 04/19/2020 Transcribed Document [facility] [place] Medicine [facility] [place] [address] ProviderEder MD [address] [place] [address] Social History Tobacco Use Types [...] EEG-video monitoring was performed using the 32-channel [employer] monitoring system. The seizure detection computer was [...] dysfunction in the left anterior temporal region. /[id number] MD BENJI Cabrera/NUSRAT / TAF / MODL /[id number] documented in this encounter Plan of Treatment Not on file documented as of this encounter Visit Diagnoses Not on filedocumented in this encounter
--- OUTSIDE RECORDS SUMMARY | 2025-05-23 08:07 | XMS_ITS | Clinical Summary ---
Author Organization [employer] ([place], [place], [place], [place], [place]) Address [address] [place] [address] Care Team Providers Care Delivery Merchandiser Name Role Phone Unavailable Primary Care Provider [...]
--- OUTSIDE RECORDS SUMMARY | 2025-05-23 08:07 | XMS_ITS | Encounter Summary ---
Author Organization [employer] ([place], [place], [place], [place], [place]) Address [address] [place] [address] Care Team Providers Care Waitstaff Name Role Phone Unavailable Primary Care Provider Unavailabl e Encounter Details Date Type Department Care Team (Late st Contact Info) Description 04/17/2020 Transcribed Document [facility] [place] [address] [place] [address] ProviderEder MD [address] [place] [address] Social History Tobacco Use Types [...] EDT Electronically signed by Jimmy Feliciano Conversion Clean Up Helper Banquet Cerkimberly at 10/17/2022 6:03 PM CDT documented in this encounter Plan of Treatment Not on file documented as of this encounter Visit Diagnoses Not on filedocumented in this encounter
--- OUTSIDE RECORDS SUMMARY | 2025-05-23 08:07 | XMS_ITS | Encounter Summary ---
Author Organization [employer] ([place], [place], [place], [place], [place]) Address [address] [place] [address] Care Team Providers Care Bearingizer Name Role Phone Unavailable Primary Care Provider Unavailabl e Encounter Details Date Type Department Care Team (Late st Contact Info) Description 04/18/2020 Transcribed Document [facility] [place] On license of [facility] [place] [address] ProviderEder MD [address] [place] [address] Social History Tobacco Use Types [...] EEG-video monitoring was performed using the 32-channel [employer] monitoring system. The seizure detection computer was [...] dysfunction in the left anterior temporal region. /[id number] Mamadou Campa MD TAF/AQ / TAF / MODL /[id number] documented in this encounter Plan of Treatment Not on file documented as of this encounter Visit Diagnoses Not on filedocumented in this encounter
--- OUTSIDE RECORDS SUMMARY | 2025-05-23 08:07 | XMS_ITS | Encounter Summary ---
Author Organization [employer] ([place], [place], [place], [place], [place]) Address [address] [place] [address] Care Team Providers Care Burial Needs Salesperson Name Role Phone Unavailable Primary Care Provider Unavailabl e Encounter Details Date Type Department Care Team (Late st Contact Info) Description 04/17/2020 Transcribed Document [facility] Family Medicine [facility] [place] [address] ProviderEder MD [facility] [place] [address] Social History Tobacco Use Types [...] #2 Relationship : na Primary Language : Serbian Preferred Communication Mode : Verbal Communication Barrier : None Cotton Ball Bagger Needed : No Jeanne Pryor RN - [...] Scale Risk Level : 25-45 Medium Risk [place] Fall Interventions : Adequate lighting, Assistive devices [...] Source : Stated Height Entry Format : [place] Height, Feet : 5 ft(Converted to: 152 cm, 60 Inch) Height, Inches : 3 Inch(Converted to: 0 ft 3 Inch, 7.62 cm) Clinical Height : 160.02 cm Weight Source : Stated [place] Body Weight : 52 kg Jeanne Pryor RN - 04/17/2020 11:47 EDT Estimated Weight Type of Weight Measurement Est : [place] Weight, est lb : 127 lb(Converted to: [...] Jeanne Pryor RN - 04/17/2020 11:47 EDT [place] Suicide Severity Rating Scale (C-SSRS) CSSRS Past [...] : Cell phone, Wallet, Other: debit card, 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
--- OUTSIDE RECORDS SUMMARY | 2025-05-23 08:07 | XMS_ITS | Encounter Summary ---
Author Organization [employer] ([place], [place], [place], [place], [place]) Address [address] [place] [address] Care Team Providers Care Raiser Helper Name Role Phone Unavailable Primary Care Provider Unavailabl e Encounter Details Date Type Department Care Team (Late st Contact Info) Description 04/19/2020 Transcribed Document [facility] Family Medicine [facility] [place] [address] ProviderEder MD [address] [place] [address] Social History Tobacco Use [...] Mathews MD - 04/19/2020 12:41 PM CDT [facility] [place] [address] VANE RAYA :1975 Visit Time:04/17/2020 Your [...] When Within 3 months Where: [address] [place] [address]- Business (1) Medications What How Much When [...] if you have a seizure. ??? Take aule-zlt-cqpsxzv and prescription medicines only as told by [...] 08/01/2006 Document Revised: 05/29/2018 Document Reviewed: 03/28/2017 [employer] Patient Education ?? 2020 [employer]. Emergency Awareness and Preventative Care STROKE is [...] Assistance with quitting is available by contacting 1-510-CEQG-NOW. This is a free resource providing counseling, [...] was given the opportunity to ask questions. Patient/Electroplater Automatic Name: Patient/Electroplater Automatic Signature: Relationship to Patient: Clinician/Hospital Electroplater Automatic Signature: Date: documented in this encounter Plan of Treatment Not on file documented as of this encounter Visit Diagnoses Not on filedocumented in this encounter
--- OUTSIDE RECORDS SUMMARY | 2025-05-23 08:07 | XMS_ITS | Encounter Summary ---
Author Organization [employer] ([place], [place], [place], [place], [place]) Address [address] [place] [address] Care Team Providers Care Senior Customer Service Representative Name Role Phone Unavailable Primary Care Provider Unavailabl e Encounter Details Date Type Department Care Team (Late st Contact Info) Description 04/19/2020 Transcribed Document [facility] Family Medicine [facility] [place] [address] ProviderEder MD [facility] [place] [address] Social History Tobacco Use Types [...] Evaluation : Verbalizes understanding Education Comment : [facility] Monitoring on the EMU Jeanne Pryor RN - 04/19/2020 13:18 EDT Electronically signed by Braden, [facility] Conversion Vp Outcomes Cerner at 10/17/2022 5:55 PM CDT documented in this encounter Plan of Treatment Not on file documented as of this encounter Visit Diagnoses Not on filedocumented in this encounter
--- OUTSIDE RECORDS SUMMARY | 2025-05-23 08:07 | XMS_ITS | Encounter Summary ---
Author Organization [employer] ([place], [place], [place], [place], [place]) Address [address] [place] [address] Care Team Providers Care Palliative Care Nurse Name Role Phone Unavailable Primary Care Provider Unavailabl e Encounter Details Date Type Department Care Team (Late st Contact Info) Description 04/19/2020 Transcribed Document [facility] Family Medicine [address] [place] [address] ProviderEder MD [address] [place] [address] Social History Tobacco Use Types [...]
--- OUTSIDE RECORDS SUMMARY | 2025-05-23 08:07 | XMS_ITS | Encounter Summary ---
Author Organization [employer] ([place], [place], [place], [place], [place]) Address [address] [place] [address] Care Team Providers Care Hardware Installer Name Role Phone Unavailable Primary Care Provider Unavailabl e Encounter Details Date Type Department Care Team (Late st Contact Info) Description 04/17/2020 Transcribed Document [facility] [place] [facility] [address] ProviderEder MD [address] [place] [address] Social History Tobacco Use Types [...] the upper and lower extremities. COORDINATION: Normal vheybr-be-kygn. Normal rapid alternating movements. IMPRESSION: Ms. Raya [...] mg IV for repetitive or prolonged seizures. /[id number] MD BENJI Cabrera/NUSRAT / TAF / MODL Electronically signed by Braden [facility] Conversion Site Specialist Josefa at 10/17/2022 5:57 PM CDT documented in this encounter Plan of Treatment Not on file documented as of this encounter Visit Diagnoses Not on filedocumented in this encounter
--- OUTSIDE RECORDS SUMMARY | 2025-05-23 08:07 | XMS_ITS | Encounter Summary ---
Author Organization [employer] ([place], [place], [place], [place], [place]) Address [address] [place] [address] Care Team Providers Care Clinical Documentation Consultant Name Role Phone Unavailable Primary Care Provider Unavailabl e Encounter Details Date Type Department Care Team (Late st Contact Info) Description 04/19/2020 Transcribed Document [facility] [address] [place] [address] ProviderEder [place] [address] Social History Tobacco Use Types [...] Eder ProviderMD - 04/19/2020 12:17 PM CDT [address] , [place] [address] Patient Copy Patient Information: Name: VANE RAYA Current Date: 04/19/2020 12:17:27 : 1975 Patient Address: [address] [place] [address] [address] [place] [id number] Patient Attending Physician: HANANE WOLFE MD-MANOJ Primary Care Provider: FLASH SANTANA Primary Care Provider Phone: Discharge Diagnosis: Nonepileptic episode Comment: Follow-up Instructions: With: Address: When: Hattie Diaz [address] [place] [address] Business (1) Within 3 months Discharge Instructions: [...] Assistance with quitting is available by contacting 1-293-AWKC-NOW. This is a free resource providing counseling, [...] sure to sign up for the [facility] patient portal, which gives you 20/01 access to your medical information ??? including these discharge instructions ??? using your computer, smartphone, or tablet. Just go to NGRAIN to get started. Questions? Call . [facility] would like to thank you for allowing us to assist you with your healthcare needs. GEORGES Cardona REBECCA JANE, (or new accounts banking representative) have received the above patient education materials/instructions and have verbalized understanding: Patient Signature _ Date/Time Patient Machine Operator General Signature (if needed) Date/Time Clinician/Hospital Machine Operator General Signature (if needed) Date/Time documented in this encounter Plan of Treatment Not on file documented as of this encounter Visit Diagnoses Not on filedocumented in this encounter
--- OUTSIDE RECORDS SUMMARY | 2025-05-23 08:07 | XMS_ITS | Referral Summary ---
Author Organization [employer] ([place], [place], [place], [place], [place]) Address [address] [place] [address] Care Team Providers Care Booking Police Officer Name Role Phone Unavailable Primary Care [...]
--- OUTSIDE RECORDS SUMMARY | 2025-05-23 08:07 | XMS_ITS | Encounter Summary ---
Author Organization [employer] ([place], [place], [place], [place], [place]) Address [address] [place] [address] Care Team Providers Care Chronic Specialist Name Role Phone Unavailable Primary Care Provider Unavailabl e Encounter Details Date Type Department Care Team (Late st Contact Info) Description 04/19/2020 Transcribed Document [facility] [place] [facility] [place] [address] ProviderEder MD [address] [place] [address] Social History Tobacco Use Types [...] Normal cranial nerves. Normal motor exam. Normal bdccpe-aa-hcgt. DISCHARGE INSTRUCTIONS: 1. No driving. 2. Divalproex sodium 500 mg daily. 3. Albuterol 3 mL inhalation as needed. 4. Pristiq 50 mg daily. 5. Diazepam p.r.n. 6. Biofreeze one application three times daily as needed. 7. Follow up with Dr. Diaz within 3 months. /[id number] MD BENJI Cabrera/AQ / BENJI / MODL /[id number] Electronically signed by Braden [facility] Conversion Burlap Roll Coverer Cerner at 10/17/2022 5:52 PM CDT documented in this encounter Plan of Treatment Not on file documented as of this encounter Visit Diagnoses Not on filedocumented in this encounter
--- OUTSIDE RECORDS SUMMARY | 2025-05-23 08:07 | XMS_ITS | Encounter Summary ---
Author Organization [employer] ([place], [place], [place], [place], [place]) Address [address] [place] [address] Care Team Providers Care Auditor Internal Name Role Phone Unavailable Primary Care Provider Unavailabl e Encounter Details Date Type Department Care Team (Late st Contact Info) Description 04/18/2020 Transcribed Document [facility] [place] [address] [place] [address] ProviderEder MD [address] [place] [address] Social History Tobacco Use Types [...] 2 mg, IV Push, Q8H, PRN: Seizures [place] 7.5 mg-325 mg oral tablet: 1 Tab, Oral, Q4H, PRN: Pain (Moderate 4-6) Zofran: 4 mg, IV Push, Q6H, PRN: Nausea/Vomiting albuterol 5 mg/mL (0.5%) inhalation solution: 2.5 mg, 0.5 mL, Nebulized Inhalation, Q6H, PRN: Wheezing desvenlafaxine: 50 mg, Oral, At Bedtime Pending Complete influenza virus vaccine, inactivated: 0.5 mL, IntraMuscular, [id number] Documented Medications Documented Biofreeze: 1 Application, Topical, [...] list: Medical Allergic rhinitis / SNOMED CT 174418224 / Confirmed horse shoe shaped kidney / Confirmed Fasting hypoglycemia / SNOMED CT 92568717 / Confirmed Wears eyeglasses / SNOMED CT 018883774 / Confirmed Asthma / SNOMED CT 553371551 / Confirmed H/O bronchitis / SNOMED CT 567288747 / Confirmed H/O: pneumonia / SNOMED CT 786777865 / Confirmed Hemorrhoids / SNOMED CT 013922418 / Confirmed Renal calculus / SNOMED CT 592356917 / Confirmed Urinary tract infection / SNOMED CT 211002791 / Confirmed Arthritis / SNOMED CT 1495532 / Confirmed Back pain / SNOMED CT 568872683 / Confirmed Restless legs syndrome / SNOMED CT 03065898 / Confirmed Cervical disc disease with myelopathy / SNOMED CT 706673774 / Confirmed Migraine / SNOMED CT 57868671 / Confirmed Concussion / SNOMED CT 017718718 / Confirmed Acute anxiety / SNOMED CT 06272118 / Confirmed History of panic attacks / SNOMED CT 611800582 / Confirmed Anxious depression / SNOMED CT 165076059 / Confirmed PTSD / Confirmed Falls frequently / SNOMED CT 983063738 / Confirmed OCD / Confirmed Suicide risk / IMO 74418 / Confirmed At risk for sleep apnea / IMO 83296457 / Confirmed Suicide risk / IMO 00742 / Confirmed, Active Problems (25) Acute anxiety [...] EDT Height Source Stated Height Entry Format Floral Height/Length, GREENLANDIC (ft) 5 ft Height/Length GREENLANDIC 3 Inch CLINICALHEIGHT 160.02 cm Type of Weight Measurement. Floral Weight, est lb 127 lb Weight, est oz 6 oz Estimated Clinical Dosing Weight 57.9 kg Flippin Body Weight 52 kg Weight Source Stated [...]
--- OUTSIDE RECORDS SUMMARY | 2025-05-23 08:07 | XMS_ITS | Encounter Summary ---
Author Organization [employer] ([place], [place], [place], [place], [place]) Address [address] [place] [address] Care Team Providers Care Captain Cannery Tender Name Role Phone Unavailable Primary Care Provider Unavailabl e Encounter Details Date Type Department Care Team (Late st Contact Info) Description 04/19/2020 Transcribed Document [facility] [place] Family Medicine [facility] [place] [address] ProviderEder MD [address] [place] [address] Social History Tobacco Use Types [...] EEG-video monitoring was performed using the 32-channel [employer]! monitoring system. The seizure detection computer was [...] dysfunction in the left anterior temporal region. /[id number] MD BENJI Cabrera/AQ / BENJI / MODL /[id number] documented in this encounter Plan of Treatment Not on file documented as of this encounter Visit Diagnoses Not on filedocumented in this encounter
--- OUTSIDE RECORDS SUMMARY | 2025-05-23 08:07 | XMS_ITS | Encounter Summary ---
Author Organization [employer] ([place], [place], [place], [place], [place]) Address [address] [place] [address] Care Team Providers Care Tooling Specialist Name Role Phone Unavailable Primary Care Provider Unavailabl e Encounter Details Date Type Department Care Team (Late st Contact Info) Description 04/17/2020 Transcribed Document [facility] Family Medicine [address] [place] [address] ProviderEder MD [address] [place] [address] Social History Tobacco Use Types [...]
--- OUTSIDE RECORDS SUMMARY | 2025-05-23 08:07 | XMS_ITS | Encounter Summary ---
Author Organization [employer] ([place], [place], [place], [place], [place]) Address [address] [place] [address] Care Team Providers Care Section Hand Helper Name Role Phone Unavailable Primary Care Provider Unavailabl e Encounter Details Date Type Department Care Team (Late st Contact Info) Description 04/18/2020 Transcribed Document [facility] [place] [address] [place] [address] ProviderEder MD [address] [place] [...] Spiritual Care Spiritual Care Referred by : Doweling Machine Operator initiated Reason for Visit : Initial Ministry [...]
--- OUTSIDE RECORDS SUMMARY | 2025-05-23 08:07 | XMS_ITS | Encounter Summary ---
Author Organization [employer] ([place], [place], [place], [place], [place]) Address [address] [place] [address] Care Team Providers Care Bundle Wrapper Name Role Phone Unavailable Primary Care Provider Unavailabl e Encounter Details Date Type Department Care Team (Late st Contact Info) Description 04/18/2020 Transcribed Document [facility] Family Medicine [address] [place] [address] ProviderEder MD [address] [place] [address] Social History Tobacco Use Types [...] Policy Numbers : Insurance 1 [facility] Policy Number: [id number] Authorization Number: NPR Insurance Primary Name : [facility] [id number] Authorized Service Begin Date-Primary : 04/17/2020 EDT Observation Authorization Nbr-Primary : [id number] Authorization Comments-Primary : ref # per scanned document Historical Authorization Comments-Primary : No Authorization Comments Found [facility] RN-Utilization Review - 04/18/2020 8:52 EDT Electronically signed by Braden [facility] Conversion Bible Reader Cerner at 10/17/2022 6:00 PM CDT documented in this encounter Plan of Treatment Not on file documented as of this encounter Visit Diagnoses Not on filedocumented in this encounter
--- OUTSIDE RECORDS SUMMARY | 2025-05-23 08:07 | XMS_ITS | Clinical Summary ---
Author Organization [facility] Address [address] [place] [address] Care Team Providers Care Consumer Attorney Name Role Phone Unavailable Primary Care Provider [...]
--- OUTSIDE RECORDS SUMMARY | 2025-05-23 08:07 | XMS_ITS | Clinical Summary ---
Author Organization [facility] Address [address] [place] [address] Care Team Providers Care Pen Maker Name Role Phone None Primary Care Provider [...] age to complete this topic Care Teams Pen Maker Relationship Specialty Start Date End Date None PCP - General 01/16/08
== END ==
LOC: SL 08:02
PROVIDERS: PCP Internal Medicine; Visit Provider Internal Medicine
DX: G47.33 Obstructive sleep apnea (adult) (pediatric) (principal)
CPT/HCPCS: G0399

== ENCOUNTER 2025-06-07 12:09 | Outpatient (CLI) | payer OTHER, SELFPAY ==
[2025-06-07 12:16] VITALS: BMI 26.5
--- NOTE | 2025-06-07 12:45 | ECG_ITS ---
APPROVED REPORT Exam: Resting ECG HR:74 bpm ECG Measurements Heart Rate 74 AXES ND 121 P 70 QRSd 86 QRS 92 QT 386 T 69 QTc 413 Conclusion SINUS RHYTHM BORDERLINE RIGHT AXIS DEVIATION [QRS AXIS > 90] BORDERLINE ECG UNCONFIRMED REPORT Electronically signed by : Adam Vargas MD 06/08/2025 08:32:44
[2025-06-07 12:57] LABS: Hematocrit 37.0 % (37.0-47.0); Hemoglobin 12.4 g/dL (12.2-16.2); Immature Granulocytes % 0.4 %; Mean Corpuscular HGB Conc 33.5 g/dL (31.8-35.4); Mean Corpuscular Hemoglobin 31.6 pg (27.0-31.2); Mean Corpuscular Volume 94.1 fl (81-99); Nucleated Red Blood Cells % 0 %; Platelet Count 213 K/mm3 (142-424); Red Blood Count 3.93 M/mm3 (4.20-5.40); Red Cell Distribution Width-SD 42.8 fL; White Blood Count 7.2 K/mm3 (4.8-10.8)
[2025-06-07 13:31] LABS: Alanine Aminotransferase 21 U/L (12-78); Albumin Level 4.1 g/dl (3.5-5.0); Albumin/Globulin Ratio 1.3 (1.1-1.8); Alkaline Phosphatase 87 U/L (38-126); Anion Gap 13.5 mEq/L (5-15); Aspartate Amino Transferase 22 U/L (14-36); Bilirubin,Total 0.3 mg/dl (0.2-1.3); Blood Urea Nitrogen 16 mg/dl (7-17); Calcium 9.2 mg/dl (8.4-10.2); Carbon Dioxide 27 mmol/L (22.0-30.0); Chloride 103 mmol/L (98-107); Creatinine Clearance Estimated 89 mL/min (50-200); Creatinine,Serum 0.80 mg/dl (0.52-1.04); Estimated Glomerular Filt Rate 76 ml/min (>60); GFR (African American) 92 ML/MIN (>60); Globulin 3.1 g/dL (1.3-3.2); Glucose 140 mg/dl (74-100); Potassium 4.5 mmoL/L (3.5-5.1); Sodium 139 mmol/L (136-145); Total Protein,Serum 7.2 g/dl (6.3-8.2)
== END 2025-06-07 23:59 | disposition home or self-care (01) ==
LOC: PREOP 12:10
PROVIDERS: PCP Internal Medicine; Visit Provider Nurse Practitioner Obstetrics & Gynecology
DX: Z01.810 Encounter for preprocedural cardiovascular examination (principal); Z01.812 Encounter for preprocedural laboratory examination; R94.31 Abnormal electrocardiogram [ECG] [EKG]; R10.20 Pelvic and perineal pain unspecified side; R10.9 Unspecified abdominal pain
CPT/HCPCS: 80053; 84702; 85025; 93005

== ENCOUNTER 2025-06-14 08:17 | Day surgery (SDC) | payer OTHER, SELFPAY ==
[2025-06-07 15:02] VITALS: BMI 26.5
[2025-06-14] VITALS (11 sets, daily range): BP systolic 97–137; BP diastolic 53–80; PULSE 70–78; RESP 14–20; TEMP 36.2–43; O2SAT 94–98
[2025-06-14] MEDS: ACETAMINOPHEN 500MG TAB 1000 MG PO (10:21)
[2025-06-14] MEDS: GABAPENTIN 600MG TABLET 600 MG PO (10:22)
[2025-06-14] MEDS: 0.9 % SODIUM CHLORIDE 1000ML 1,000 ML 25 ML IV (10:29)
--- NOTE | 2025-06-14 10:31 | P.PNANES_ITS ---
[facility] Disclaimer: The information contained in this section may have been updated after the patient was seen, as this information can be updated by other users. Medical History Skin lesions 6 mm brought-based right axillary skin tag with associated pain/discomfort Lumbar radiculopathy Benzodiazepine withdrawal Urinary tract infection symptoms Nerve pain Cervical radicular pain Sciatica Nightmares associated with chronic post-traumatic stress disorder Left leg pain Spell of altered consciousness Fall Urinary symptom or sign Dizziness Dizziness Hypokalemia Anxiety Skin lesions, generalized Abnormal electrocardiogram [ECG] [EKG] Dyspnea Depression Strep pharyngitis Complete miscarriage Acute pain of left knee Arm pain, left Swelling of labia Allergic reaction caused by a drug UTI (urinary tract infection) No significant past medical history Rash and nonspecific skin eruption Generalized seizure COVID-19 Vomiting Headache Gastroenteritis Pharyngitis Exposure to COVID-19 virus Viral syndrome Chronic lumbar pain COPD exacerbation Strain of lumbar region Concussion Fall Seizure Medication reaction Lower extremity pain Functional abdominal pain syndrome Neck Pain Elbow pain Anxiety Valium was prescribed by [place] in [place] Cervical strain Acute bronchitis Bronchitis Surgical History History of kidney surgery History of D&C H/O: History of appendectomy History of partial hysterectomy H/O cervical spine surgery Family History Other Cancer Diabetes Heart attack Hypertension Stroke Social History Smoking Status: Former smoker tobacco type: cigarettes packs per day: 1 smoking status stop date: 2015 alcohol intake: never substance use type: denies use current occupational status: disabled Travel in the last 8 weeks?: None household members: none housing: other Have you lived/traveled outside [place] in past 30 days?: No Contact w/someone who lives/traveled outside US past 30 days?: No Exposure to someone with infectious disease in past 14 days?: No Do you have a fever (greater than 100.4 F or 38 C)?: No Have you tested positive for COVID-19?: No Exposed to someone with COVID-19 in past 14 days?: No Do you have a sore throat?: No Do you have a cough?: No Do you have any weakness?: No Do you have any diarrhea?: No Are you experiencing any unusual bleeding?: No Do you have any muscle aches/pain?: No Do you have any abdominal pain?: No Are you experiencing loss of taste or smell?: No [facility] Anesthesia Checklist Patient Identification Patient Identification: Arm Band and Verbal (Name & ) Structural Data Admitted From: Home Planned Operative Procedure/s: Diagnostic Laparoscopy, right salpingectomy, possible left salpingectomy Consent for Planned Operative Procedure(s) Verified: Yes Verified Documents: Surgical Consent NPO Status Verified Time NPO: 00:00 Chart Verification Results Verified: CBC and BMP Additional verifications Anesthesia Reactions: No ( allergic to nitrous) Hx Blood Transfusions: No Blood Transfusion Reaction: No Airway Assessment Mallampati Score:: Class II C-Spine Mobility Assessed: Yes TMJ Mobility Assessed: Yes Dentition: Edentulous Neurological Assessment Level of Consciousness: Awake, Alert and Appropriate Hx Seizures: Yes Numbness or tingling in extremities: No Anesthesia Plan Anesthesia Risk discussed: Yes Anesthesia Plan: Verified ASA Class: II Anesthesia Type: General
[2025-06-14] MEDS: SODIUM CHLORIDE IRRIG SOLUTION 3,000 ML 200 ML IR (11:30)
--- NOTE | 2025-06-14 12:11 | EXP.OP.NOTE ---
Date of procedure: 06/14/25 Pre-op Diagnosis:: Right lower quadrant pain, right hydrosalpinx Post-op Diagnosis:: Right lower quadrant pain, right hydrosalpinx, pelvic peritoneal adhesions, adhesion of the cecum to the anterior abdominal wall Procedure performed:: Bilateral salpingectomy, lysis of adhesion's Surgeon:: Benny Martinez MD WELL REACTIVATOR OPERATOR:: Jewel French Anesthesia: GETA Estimated blood loss (mL): 25 Clinical Note:: She is a 50-year-old lady who comes chronic right sided pain. She says that the pain has been constant. A CT scan showed that she had a right hydrosalpinx. As result of that she was offered bilateral salpingectomy. Operative findings:: She had a dilated right fallopian tube that was filled with clear fluid. She had a normal-appearing ovary on the right side. The left side appeared normal and the fallopian tube on the left side also appeared normal. She had a thick band of adhesions from the distal cecum to the anterior abdominal wall. There were also other adhesions under the umbilicus and we elected to leave these alone. There was an adhesion from the omentum to the anterior abdominal wall approximately 2 to 3 mm in size and this was taken down at the time of her surgery. Operative note:: She was taken the operating room where general anesthesia was found to be adequate. She was prepped and draped in the normal sterile fashion in the semilithotomy position. A sponge forcep was placed in the vagina. I injected 0.5% ropivacaine around the umbilicus and made a small incision within the umbilicus. A Veress needle was inserted into the abdominal cavity and the abdominal cavity was insufflated to a pressure of 20 mmHg. I then inserted a 5 mm trocar under direct vision. I then injected through and through above the pubic hairline made a small incision here and inserted an 11 mm trocar under direct vision. Identified the inferior epigastric arteries on the left side, went lateral to these and injected through and through. I then made a small skin incision and inserted a 5 mm trocar here under direct vision. The findings were as previously dictated. I then took down the adhesion from the omentum to the anterior abdominal wall using harmonic scalpel. I then grasped the right tube and using harmonic scalpel I was able to dissect this away from the pelvic sidewall and dissected away from the ovary. This was removed through the 12 mm trocar. I then turned my attention to the left side and grasped the distal end of the right tube and removed this with harmonic scalpel. This was also removed through the 11 mm trocar site. The pelvis was then rinsed with warm saline and the right side and left side were found to be hemostatic. I elected to place Surgicel powder on the right ovary for hemostasis. I then grasped the adhesion on the right side and using harmonic scalpel right at the peritoneum on the anterior abdominal wall I took down this thick adhesion. It looks like this was a tethered part of the distal cecum mucosa and I elected to place a Hemoclip across this small bleb of adhesion at the cecum. I then asked Dr. Ochoa to take a look at this and and he felt that it was safe to leave this clip in place and that it would not compromise the bowel serosa. We then injected 10 cc of 0.5% ropivacaine into the pelvis. The secondary trocars were removed under direct vision. The gas was let out of the abdomen and the primary trocar and camera moved together. The 11 mm trocar site was closed deeply with 2-0 Vicryl suture followed by running subcuticular 4-0 Monocryl suture. The 5 mm trocar sites were closed with subcuticular 4-0 Monocryl suture. Sterile dressings were applied. She tolerated the procedure well and was taken to the recovery room in excellent condition. All sponge, instrument and needle counts were correct. The estimated blood loss was less than 25 cc. Condition: stable Disposition: PACU Specimens:: Bilateral fallopian tubes Complications:: None
--- NOTE | 2025-06-14 12:15 | P.PNANES_ITS ---
[facility] Anesthesia Record Part I Anesthesia Record I Intake, IV Amount: 600 Hydration: Adequate Estimated blood loss (mL): 25 Urine output (mL): 0 Blood Products used (#): none Blood Pressure: 137/80 SaO2: 94 Pulse Rate: 75 Airway Patency: Patent Respiratory Rate: 14 Temperature: 98.0 F Patient is:: Nasal O2, Stable and Somnolent Stable to PACU at:: 12:11
[2025-06-14] MEDS: MORPHINE 2MG/ML SYRINGE 1 MG IV (12:40)
[2025-06-14] MEDS: APAP/HYDROCODONE 325MG/7.5MG TAB 1 TAB PO (13:00)
--- NOTE | 2025-06-14 13:15 | EXP.ANES.II ---
[facility] Anesthesia Record Part II Anesthesia Record Part II Discharge Time: 12:41 Destination: Surgical Day Care (OP Surgery) PACU nurse assessment reviewed?: Yes Patient Condition:: Good Anesthesia Complications:: None Swallowing reflex intact?: Yes Airway Patency: Patent Cyanosis?: No Blood Pressure: 116/77 SaO2: 98 Respiratory Rate: 16 Pulse Rate: 76 Temperature: 98 F Mental Status: Alert & Oriented Pain level:: 0 Nausea and/or vomitting:: None Intake, IV Amount: 0 Hydration: Adequate
== END 2025-06-14 13:30 | disposition home or self-care (01) ==
PROVIDERS: PCP Internal Medicine; Visit Provider Nurse Practitioner Obstetrics & Gynecology
PROC: (CPT 49320; principal; 2025-06-14 09:45)
DX: N70.11 Chronic salpingitis (principal); K66.0 Peritoneal adhesions (postprocedural) (postinfection); Z88.5 Allergy status to narcotic agent; Z88.8 Allergy status to other drugs, medicaments and biological substances; Z88.6 Allergy status to analgesic agent; Z91.040 Latex allergy status; F41.9 Anxiety disorder, unspecified; F32.A Depression, unspecified; J44.9 Chronic obstructive pulmonary disease, unspecified; Z79.899 Other long term (current) drug therapy; Z90.711 Acquired absence of uterus with remaining cervical stump; Z90.49 Acquired absence of other specified parts of digestive tract; Z87.891 Personal history of nicotine dependence
CPT/HCPCS: 58661; J0690; J1100; J1885; J2003; J2250; J2270; J2405; J2704; J2795; J3010; J7030